=== PATIENT | male | born 1990 | race Caucasian/White ===

== ENCOUNTER 2017-04-25 10:55 | Inpatient (IN) | payer MEDICAID, OTHER ==
[~2017-04-25] VITALS: Ht 172.7 cm; Wt 52.3 kg
[2017-04-25] MEDS ORDERED: SODIUM CHLORIDE 0.9% 1L BAG IV* STA (11:12)
[2017-04-25] MEDS ORDERED: CEFEPIME 2GM/50 ML (PMX) 50 ML IVPB STA (11:12)
[2017-04-25] MEDS ORDERED: ACETAMINOPHEN 650 MG SUPP PR STA (11:12)
[2017-04-25] MEDS ORDERED: VANCOMYCIN 1 GM (PMX) 250 ML IVPB ONE (11:30)
[2017-04-25 11:57] LABS: ABNORMAL IP MESSAGE 1; HEMATOCRIT 25.3 % (42.0-52.0); HEMOGLOBIN 7.7 g/dl (14.0-18.0); MEAN CORPUSCULAR HEMOGLOBIN 29.7 pg (29.0-33.0); MEAN CORPUSCULAR HGB CONC 30.4 g/dl (32.0-37.0); MEAN CORPUSCULAR VOLUME 97.7 fl (82.0-101.0); MEAN PLATELET VOLUME 11.6 fl (7.4-10.4); NUCLEATED RED BLOOD CELLS% 6.4 /100WBC (0.0-0.0); PLATELET COUNT 117 10^3/UL (140-415); POSITIVE DIFF @See below; RED BLOOD COUNT 2.59 10^6/ul (4.70-6.10); RED CELL DISTRIBUTION WIDTH 17.6 % (11.5-14.5); WHITE BLOOD COUNT 1.7 10^3/ul (4.8-10.8)
[2017-04-25 12:16] LABS: INR 1.38; PT RATIO 1.3
[2017-04-25 12:17] LABS: PARTIAL THROMBOPLASTIN TIME 38.2 Sec (25.0-35.0)
[2017-04-25 12:20] LABS: ALBUMIN 2.7 g/dl (3.3-4.9); ALBUMIN/GLOBULIN RATIO 0.93; BILIRUBIN,DIRECT 0.2 mg/dl (0.00-0.20); BILIRUBIN,TOTAL 0.2 mg/dl (0.2-1.3); CALCIUM 7.4 mg/dl (8.4-10.2); CREATININE 1.42 mg/dl (0.61-1.24); POTASSIUM 3.7 mmol/L (3.5-5.1); TOTAL PROTEIN 5.6 g/dl (6.1-8.1)
--- NOTE | 2017-04-25 12:24 | RADRPT ---
PROCEDURE: XR Chest. CLINICAL INDICATION: Cough. Sepsis. TECHNIQUE: Single frontal view. COMPARISON: None. FINDINGS: There is a tracheostomy in satisfactory position. A right-sided TRACK REPAIR SUPERVISOR shunt catheter is noted. There is extensive bilateral pulmonary air space disease in the mid and lower lung zones consistent with pul monary edema or bilateral pneumonia. The heart size is normal. There is no pleural effusion. There is no pneumothorax. IMPRESSION: 1. Tracheostomy tube and right-sided TRACK REPAIR SUPERVISOR shunt catheter. 2. Extensive bilateral pneumonia or pulmonary edema. RPTAT: QQ .Garfield Sandhu MD, MD Date Time Electronically viewed and signed by .Garfield Sandhu MD, MD on 04/25/2017 12:24 .R/
[2017-04-25] MEDS ORDERED: SOD CHLORIDE 0.9% 250 ML IV ONE (12:29)
[2017-04-25] MEDS ORDERED: DEXTROSE 50% 50 ML SYRINGE IV ONE (12:30)
[2017-04-25] MEDS ORDERED: LIDOCAINE 1% (MPF) 5 ML VIAL SC ONE (12:30)
[2017-04-25 12:31] LABS: TROPONIN-I 0.035 ng/ml (0.00-0.12)
--- NOTE | 2017-04-25 12:32 | ERA ---
ER Documentation Chief Complaint Date/Time DATE: 04/25/17 TIME: 12:32 Chief Complaint pt sent from [facility] for hypotension, in coma non-responsive , temp 102.3 HPI This is an unfortunate 27-year-old male with a history of fungal meningitis initially hospitalized at [facility] then sent to [facility], after which he was sent to a senior care facility recently. He was sent here from his senior care facility for fever and hypotension with a systolic blood pressure down to 50s. Per the patient's mother, this frequently happens with him since he was diagnosed with the meningitis. He is currently being treated with antifungals at the senior care facility. He has had a pneumonia prior to this. Otherwise history is limited as the patient is nonverbal ROS Limited as patient is unresponsive Medications Home Meds Reported Medications Artificial Tears* (Akwa Oint*) 3.5 Gm Oint, 1 APPLIC BOTH EYES QID, #1 TUB 04/25/17 Desmopressin Acetate* (Ddavp*) 0.1 Mg Tablet, 0.05 MG GTB DAILY, #60 TAB 04/25/17 Ondansetron Hcl* (Zofran*) 4 Mg Tab, 4 MG GTB Q8 Y for NAUSEA AND OR VOMITING, TAB 04/25/17 Acidophilus-Bulgaricus* (BD Lactinex*) 1 Pkt Packet, 1 PKT GTB DAILY, PACKET 04/25/17 Ferrous Sulfate (Ferrous Sulfate) 220 Mg/5 Ml Elixir, 300 MG GTB BID, BOTTLE 04/25/17 Famotidine* (Famotidine*) 40 Mg/5 Ml Oral.susp, 20 MG GTB BID, #150 ML 04/25/17 Cholecalciferol (Vitamin D3) (Vitamin D3) 50,000 Unit Capsule, 57822 UNIT PO SUNDAYS, CAP 04/25/17 Enoxaparin Sodium* (Lovenox*) 30 Mg/0.3 Ml Disp.syrin, 30 MG SQ DAILY, SYR 04/25/17 Dantrolene Sodium* (Dantrolene Sodium*) 100 Mg Capsule, 150 MG PO Q8, CAP 04/25/17 Chlorhexidine Gluconate (Peridex) 473 Ml Mouthwash, 15 ML MM BID, BOTTLE 04/25/17 Bromocriptine Mesylate* (Parlodel*) 5 Mg Capsule, 30 MG GTB DAILY, CAP 04/25/17 Vit C-Ascorbate Ca-Ascorb Sod (Vitamin C) 500 Mg/15 Ml Liquid, 250 MG GTB BID, ML 04/25/17 Potassium Chloride* (Potassium Chloride*) 20 Meq/15 Ml Liquid, 40 MEQ GTB BID, ML 04/25/17 Posaconazole (Noxafil) 200 Mg/5 Ml Oral.susp, 300 MG GTB TID, ML 04/25/17 Hydrocortisone* (Cortef*) 20 Mg Tablet, 20 MG GTB DAILY, #60 TAB 04/25/17 Bethanechol Chloride* (Bethanechol Chloride*) 25 Mg Tablet, 25 MG GTB TID, TAB 04/25/17 Morphine Sulfate* (Morphine* Liq) 10 Mg/0.5 Ml Disp.syrin, 20 MG SL Q3H Y for SEVERE PAIN LEVEL 7-10, ML 04/25/17 Acetaminophen* (Acetaminophen*) 650 Mg Tablet, 650 MG GTB Q4 Y for PAIN AND OR ELEVATED TEMP, #30 TAB 04/25/17 Allergies Allergies: Coded Allergies: No Known Allergy (Unverified , 04/25/17) PMhx/Soc History of Surgery: Yes (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 , g tube ) Hx Miscellaneous Medical Probl: Yes (fungal meningitis , 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) Hx Alcohol Use: No Hx Substance Use: No Hx Tobacco Use: No Smoking Status: Never smoker FmHx Family History: other (unable to obtain) Physical Exam Vitals Vital Signs Date Time Temp Pulse Resp B/P Pulse Ox O2 Delivery O2 Flow Rate FiO2 04/25/17 13:36 98.9 110 17 73/42 100 Mechanical Ventilator 04/25/17 12:56 122 17 78/44 100 Mechanical Ventilator 04/25/17 12:05 100.9 139 33 73/53 99 Mechanical Ventilator 04/25/17 11:46 146 31 69/45 99 Mechanical Ventilator 04/25/17 11:08 102.3 160 24 59/41 94 Physical Exam Const: chronically ill appearing, on vent, appears ill Head: Atraumatic, shunt palpated in right scalp Eyes: Normal Conjunctiva, nystagmus noted ENT: dry mucous membranes Neck: trach in place, no swelling Resp: normal breath sounds but diminished Cardio: tachycardic with regular rhythm, no murmurs Abd: Soft, distended, no grimacing with palpation. Normal bowel sounds Skin: No petechiae or rashes Back: No midline or flank tenderness : underwood in place, draining clear yellow urine Ext: No cyanosis, or edema Neur: Awake, alert, not following commands, no eye contact. no spontaneous movement of extremities Result Diagram: 04/25/17 1130 04/25/17 1130 Results 24 hrs Laboratory Tests Test 04/25/17 11:30 04/25/17 12:02 White Blood Count 1.710^3/ul Red Blood Count 2.5910^6/ul Hemoglobin 7.7g/dl Hematocrit 25.3% Mean Corpuscular Volume 97.7fl Mean Corpuscular Hemoglobin 29.7pg Mean Corpuscular Hemoglobin Concent 30.4g/dl Red Cell Distribution Width 17.6% Platelet Count 39887^3/UL Mean Platelet Volume 11.6fl Neutrophils % % Segmented Neutrophils % (Manual) 23% Band Neutrophils % (Manual) 18% Lymphocytes % % Lymphocytes % (Manual) 27% Monocytes % % Monocytes % (Manual) 10% Eosinophils % % Eosinophils % (Manual) 1% Basophils % % Basophils % (Manual) 1% Metamyelocytes % (manual) 12% Myelocytes % (Manual) 6% Promyelocytes % (Manual) 2% Nucleated Red Blood Cells % 16% Neutrophils # 10^3/ul Neutrophils # (Manual) 0.410^3/ul Band Neutrophils # 0.310^3/ul Absolute Lymphocytes (Manual) 0.410^3/ul Lymphocytes # 10^3/ul Monocytes # 10^3/ul Absolute Monocytes (Manual) 0.110^3/ul Eosinophils # 10^3/ul Basophils # 10^3/ul Basophils # (Manual) 0.010^3/ul Metamyelocytes # 0.210^3/ul Myelocytes # 0.110^3/ul Promyelocytes # 010^3/ul Nucleated Red Blood Cells # 10^3/ul Platelet Estimate DECREASED Polychromasia 1+ Hypochromasia 1+ Anisocytosis 2+ Macrocytosis 1+ Tear Drop Cells 1+ Prothrombin Time 17.0Sec Prothrombin Time Ratio 1.3 INR International Normalized Ratio 1.38 Activated Partial Thromboplast Time 38.2Sec Sodium Level 154mmol/L Potassium Level 3.7mmol/L Chloride Level 121mmol/L Carbon Dioxide Level 21mmol/L Anion Gap 16 Blood Urea Nitrogen 42mg/dl Creatinine 1.42mg/dl Glucose Level 68mg/dl Lactic Acid Level 4.0mmol/L Calcium Level 7.4mg/dl Total Bilirubin 0.2mg/dl Direct Bilirubin 0.20mg/dl Indirect Bilirubin 0.0mg/dl Aspartate Amino Transf (AST/SGOT) 18IU/L Alanine Aminotransferase (ALT/SGPT) 27IU/L Alkaline Phosphatase 210IU/L Troponin I 0.035ng/ml Total Protein 5.6g/dl Albumin 2.7g/dl Globulin 2.90g/dl Albumin/Globulin Ratio 0.93 Urine Color SAUL Urine Clarity CLOUDY Urine pH 5.0 Urine Specific [place] 1.023 Urine Ketones NEGATIVEmg/dL Urine Nitrite NEGATIVEmg/dL Urine Bilirubin NEGATIVEmg/dL Urine Urobilinogen NEGATIVEmg/dL Urine Leukocyte Esterase 2+Shayy/ul Urine Microscopic RBC 160/HPF Urine Microscopic WBC > 182/HPF Urine Bacteria FEW/HPF Urine Hyaline Casts FEW/HPF Urine Hemoglobin 2+mg/dL Urine Glucose NEGATIVEmg/dL Urine Total Protein 2+mg/dl Current Medications Medications (Trade) Dose Ordered Sig/Atif Route PRN Reason Start Time Stop Time Status Last Admin Dose Admin Sodium Chloride (NS) 1,830 ml BOLUS OVER 2 HOURS STAT IV* 04/25/17 11:12 04/25/17 11:13 DC 04/25/17 11:30 Acetaminophen 650 mg 650 mg ONCE STAT VT 04/25/17 11:12 04/25/17 11:13 DC 04/25/17 11:30 Cefepime HCl 50 ml @ 100 mls/hr ONCE STAT IVPB 04/25/17 11:12 04/25/17 11:41 DC 04/25/17 11:32 Vancomycin HCl (Vancocin) 250 ml @ 125 mls/hr ONCE ONCE IVPB 04/25/17 11:30 04/25/17 13:29 DC 04/25/17 12:15 Lidocaine 5 ml 5 ml ONCE ONCE SC 04/25/17 12:30 04/25/17 12:31 DC Sodium Chloride (NS) 250 ml @ 0 mls/hr Q0M ONCE IV 04/25/17 12:29 04/25/17 12:31 DC Dextrose (D50w Syringe) 25 ml ONCE ONCE IV 04/25/17 12:30 04/25/17 12:31 DC 04/25/17 13:11 Ondansetron HCl (Zofran Inj) 4 mg ER BRIDGE PRN IV NAUSEA AND/OR VOMITING 04/25/17 13:00 04/26/17 12:59 Acetaminophen 650 mg 650 mg ER BRIDGE PRN PO MILD PAIN/FEVER 04/25/17 13:00 04/26/17 12:59 Norepinephrine 250 ml @ 7.5 mls/hr ONCE STAT IV 04/25/17 13:15 04/26/17 22:34 04/25/17 13:41 Sodium Chloride 500 ml @ 500 mls/hr Q1H STAT IV 04/25/17 13:15 04/25/17 14:14 04/25/17 13:40 Potassium Chloride/Dextrose (KCl/D5W) 1,005 ml @ 100 mls/hr Q10H3M IV 04/25/17 13:30 Procedures/[facility] EKG: Rate/Rhythm: Sinus tachycardia with short VT interval QRS, ST, T-waves: Right axis deviation, inferior T-wave inversions Impression: no STEMI Chest x-ray IMPRESSION: 1. Tracheostomy tube and right-sided PILOT SUBMERSIBLE shunt catheter. 2. Extensive bilateral pneumonia or pulmonary edema. RPTAT: QQ .Garfield Sandhu MD, MD Date Time Electronically viewed and signed by .Garfield Sandhu MD, MD on 04/25/2017 12:24 [facility] Patient is presenting with signs of septic shock. Labs were notable for pancytopenia. Additionally, he has hypernatremia and evidence of acute renal failure, likely secondary to dehydration. For his hypoglycemia, he was given D50. Broad-spectrum antibiotics were given for possible healthcare associated pneumonia. Chest x-ray showed evidence of pneumonia. Urinalysis showed evidence of infection as well. Patient's infectious symptoms have not stabilized and the patient is at risk of rapid decompensation. The patient will be admitted for careful hydration, antibiotic therapy, and infectious source control. Dr. Dozier evaluated the patient and requested 1 unit blood transfusion. Severe Sepsis Assessment: Infectious Source: Pneumonia, UTI End organ damage indicated by: Lactate > 2.0 mmol/L Hypotension( SBP < 90 or >40 mmHG drop or MAP < 65) Acute Resp Failure (sat < 92% w/o oxygen) Severe Sepsis Managment: Blood Cultures X 2 before broad spectrum antibiotics initiated within 3 hours of recognition. 30 ml/kg NS bolus Completed Initial Lactate: 4 Repeat Lactate pending Critical Care: Time: 45 minutes Treatments/Evaluations: Emergent fluid management, while maintaining close respiratory support. Immediate broad spectrum antibiotic therapy. Simultaneous assessment for possible sources in order to direct therapy. Consideration for invasive and chemical support to prevent respiratory or cardiac collapse. Septic Shock Assessment (1 hour post 30 ml/kg fluid bolus): Hypotension (SBP < 90 or 40 mmHg drop, MAP < 65): Yes Lactic acid > 4.0 pending Perfusion Reassessment for Septic Shock: Temp 98.9, Pulse 110, RR 17, BP 73/42 Heart Exam: Tachycardic Lung Exam: No Crackles Capillary Refill: Delayed Peripheral Pulses: Radially present Skin: warm,dry Hypotensive Treatment Comfort Care: No Central LIne: PICC requested, CVC not placed by me as this would be invasive and POLST states to generally avoid invasive procedures Vasopressor started: norepinephrine Accepting Care Team: Current data and ongoing care discussed. Time: Time of admission Primary Provider: Jacoby Consulting: none Outstanding Data: none Departure Diagnosis: Primary Impression: Severe sepsis Additional Impressions: History of meningitis Hypernatremia Chronic respiratory failure Qualified Code: J96.10 - Chronic respiratory failure, unspecified whether with hypoxia or hypercapnia Acute renal failure Qualified Code: N17.9 - Acute renal failure, unspecified acute renal failure type Pancytopenia Healthcare-associated pneumonia UTI (urinary tract infection) Qualified Code: N39.0 - Urinary tract infection without hematuria, site unspecified Condition: Critical TRANG PARDO MD Apr 25, 2017 12:32
[2017-04-25 12:42] LABS: ANISOCYTOSIS 2+ (0-0); BASOPHILS % (M) 1 % (0-2); EOSINOPHILS % (M) 1 % (0-7); ERYTHROBLAST% (NRBC) (M) 16 % (0-0); HYPOCHROMASIA 1+ (0-0); METAMYELOCYTES %M 12 % (0-0); MONOCYTES % (M) 10 % (0-11); MYELOCYTES % (M) 6 % (0-0); PLATELET ESTIMATE DECREASED; POLYCHROMASIA 1+ (0-0); PROMYELOCYTES #M 0 10^3/ul (0-0); PROMYELOCYTES % (M) 2 % (0-0); TEAR DROP CELLS 1+ (0-0)
[2017-04-25] MEDS ORDERED: ACET-2047 GTB (12:59)
--- NOTE | 2017-04-25 12:59 | CONS ---
Date/Time of Note Date/Time of Note DATE: 04/25/17 TIME: 12:51 Assessment/Plan Assessment/Plan Additional Assessment/Plan Data setting; AC of 16, tidal volume 400, PEEP of 0, 100% FiO2. Assessment and recommendations; 1. Patient admitted with bilateral pneumonia with pancytopenia. 2. History of anoxic brain injury, patient remains chronically ventilator dependent and in a persistent vegetative state. 3. History of disseminated coccidiomycosis infection. 4. Abdominal distention. Continue current treatment. Continue IV hydration current antibiotics. Obtain CT of the abdomen and pelvis without contrast. Consultation Date/Type/Reason Admit Date/Time Date of Consultation: Apr 25, 2017 Type of Consultation: Pulmonary/critical care Reason for Consultation Pulmonary consultation requested for evaluation of sepsis. History of presenting illness; patient is a young 27-year-old male who was sent over to the ER from care home with complaints of being hypotensive. Upon evaluation a chest x-ray was done which is showing bilateral pneumonia. Patient currently is getting fluid resuscitation. Patient has history of severe anoxic brain injury and is chronically ventilator dependent. History was obtained from patient's primary care physician Dr. Dozier and patient's mother who was present in the emergency room. Past medical history; 1. 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 2. Persistent vegetative state. 3. Patient is chronically ventilator dependent. 4. Status post tracheostomy and G-tube placement. Medications; reviewed. Allergies; none. Social history; noncontributory. Family history; patient has a supportive family. Review of systems; unable to be obtained. General exam; young male, on ventilator via tracheostomy, unresponsive, currently in no distress. Social History Smoking Status: Never smoker Exam/Review of Systems Vital Signs Vitals Vital Signs Date Time Temp Pulse Resp B/P Pulse Ox O2 Delivery O2 Flow Rate FiO2 04/25/17 12:05 100.9 139 33 73/53 99 04/25/17 11:46 Mechanical Ventilator Exam HEENT exam; supple neck, tracheostomy in place. Insertion site is clean. Patient has fair dentition. No neck masses, no thyromegaly. No lymphadenopathy. Pupils are midsize and reactive to light. Chest exam; diminished but clear breath sounds. S1-S2 audible, no murmurs. Regular rhythm. Abdomen exam; soft, no organomegaly. G-tube in place. Bowel sounds audible. Abdomen is protuberant. Extremity exam; no peripheral edema. FOUNDER AND CHIEF EXECUTIVE OFFICER exam; patient is in vegetative state. Results Result Diagram: 04/25/17 1130 04/25/17 1130 Results 24 hrs Laboratory Tests Test 04/25/17 11:30 White Blood Count 1.7 L Red Blood Count 2.59 L Hemoglobin 7.7 L Hematocrit 25.3 L Mean Corpuscular Volume 97.7 Mean Corpuscular Hemoglobin 29.7 Mean Corpuscular Hemoglobin Concent 30.4 L Red Cell Distribution Width 17.6 H Platelet Count 117 L Mean Platelet Volume 11.6 H Neutrophils % Segmented Neutrophils % (Manual) 23 L Band Neutrophils % (Manual) 18 H Lymphocytes % Lymphocytes % (Manual) 27 Monocytes % Monocytes % (Manual) 10 Eosinophils % Eosinophils % (Manual) 1 Basophils % Basophils % (Manual) 1 Metamyelocytes % (manual) 12 H Myelocytes % (Manual) 6 H Promyelocytes % (Manual) 2 H Nucleated Red Blood Cells % 16 H Neutrophils # Neutrophils # (Manual) 0.4 L Band Neutrophils # 0.3 Absolute Lymphocytes (Manual) 0.4 L Lymphocytes # Monocytes # Absolute Monocytes (Manual) 0.1 L Eosinophils # Basophils # Basophils # (Manual) 0.0 Metamyelocytes # 0.2 H Myelocytes # 0.1 H Promyelocytes # 0 Nucleated Red Blood Cells # Platelet Estimate DECREASED Polychromasia 1+ Hypochromasia 1+ Anisocytosis 2+ Macrocytosis 1+ Tear Drop Cells 1+ Prothrombin Time 17.0 H Prothrombin Time Ratio 1.3 INR International Normalized Ratio 1.38 Activated Partial Thromboplast Time 38.2 H Sodium Level 154 H Potassium Level 3.7 Chloride Level 121 H Carbon Dioxide Level 21 Anion Gap 16 Blood Urea Nitrogen 42 H Creatinine 1.42 H Glucose Level 68 L Lactic Acid Level 4.0 *H Calcium Level 7.4 L Total Bilirubin 0.2 Direct Bilirubin 0.20 Indirect Bilirubin 0.0 Aspartate Amino Transf (AST/SGOT) 18 Alanine Aminotransferase (ALT/SGPT) 27 Alkaline Phosphatase 210 H Troponin I 0.035 Total Protein 5.6 L Albumin 2.7 L Globulin 2.90 Albumin/Globulin Ratio 0.93 Medications Medications Current Medications Vancomycin HCl (Vancocin) 250 ml @ 125 mls/hr ONCE ONCE IVPB Last administered on 04/25/17t 12:15; Admin Dose 125 MLS/HR; Start 04/25/17 at 11:30 ; Stop 04/25/17 at 13:29 CHITO WALLS Apr 25, 2017 12:59
[2017-04-25] MEDS ORDERED: MORP10DI10 SL (13:00)
[2017-04-25] MEDS ORDERED: ONDANSETRON 4 MG INJ IV PRN (13:00)
[2017-04-25] MEDS ORDERED: ACETAMINOPHEN 325 MG TAB PO PRN (13:00)
[2017-04-25] MEDS ORDERED: BETH25TA GTB (13:01)
[2017-04-25] MEDS ORDERED: HYDR20TA GTB (13:01)
[2017-04-25] MEDS ORDERED: POSA200O2 GTB (13:02)
[2017-04-25] MEDS ORDERED: POTA20LI5 GTB (13:03)
[2017-04-25] MEDS ORDERED: VIT500LI GTB (13:04)
[2017-04-25] MEDS ORDERED: BROM5CAP12 GTB (13:04)
[2017-04-25] MEDS ORDERED: CHLO473M4 MM (13:05)
[2017-04-25] MEDS ORDERED: DANT100C PO (13:06)
[2017-04-25] MEDS ORDERED: ENOX30DI10 SQ (13:06)
[2017-04-25] MEDS ORDERED: FAMO40OR4 GTB (13:07)
[2017-04-25] MEDS ORDERED: CHOL500051 PO (13:07)
[2017-04-25] MEDS ORDERED: ONDA-43 GTB (13:08)
[2017-04-25] MEDS ORDERED: FRS220B GTB (13:08)
[2017-04-25] MEDS ORDERED: LACTINEXG GTB (13:08)
[2017-04-25] MEDS ORDERED: DESM0.1T2 GTB (13:09)
[2017-04-25] MEDS ORDERED: MINE3.5O31 BOTH EYES (13:10)
[2017-04-25] MEDS ORDERED: NORepinephrine 8MG/250 ML (PMX 250 ML IV STA (13:15)
[2017-04-25] MEDS ORDERED: SOD CHLORIDE 0.9% 500 ML IV STA (13:15)
[2017-04-25 13:24] LABS: ADD UMIC YES; UR ASCORBIC ACID 40 mg/dL (NEGATIVE); UR BACTERIA FEW /HPF (NONE SEEN); UR BILIRUBIN (Dip) NEGATIVE (NEGATIVE); UR BLOOD (Dip) 2+ mg/dL (NEGATIVE); UR CLARITY CLOUDY (CLEAR); UR COLOR AMBER (YELLOW); UR GLUCOSE (Dip) NEGATIVE (NEGATIVE); UR KETONES (Dip) NEGATIVE (NEGATIVE); UR LEUKOCYTE ESTERASE (Dip) 2+ Leu/ul (NEGATIVE); UR NITRITE (Dip) NEGATIVE (NEGATIVE); UR NONSQUAMOUS EPITHELIAL CELL 5 /HPF (NONE SEEN); UR RBC 160 /HPF (0-5); UR SPECIFIC GRAVITY (Dip) 1.023 (1.003-1.030); UR TOTAL PROTEIN (Dip) 2+ mg/dl (NEGATIVE); UR UROBILINOGEN (Dip) NEGATIVE (NEGATIVE)
--- NOTE | 2017-04-25 13:31 | CONS ---
Date/Time of Note Date/Time of Note DATE: 04/25/17 TIME: 13:30 Assessment/Plan Assessment/Plan Additional Assessment/Plan 1. Non Oliguric Acute kidney injury due to septic shock 2. Hypernaremia 3. Lactic acidosis due to septic shock 4. Acute on chronic resp failure s/p Tracheostomy 5. H/o Fungal meningitis, currently comatose 6. 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 Consultation Date/Type/Reason Admit Date/Time 04/25/2017 Date of Consultation: Apr 25, 2017 Type of Consultation: NEPHROLOGY Reason for Consultation acute kidney injury,septic shock,Hypernatremia , Referring Provider: HELEN CASTELLANO MD Hx of Present Illness 27-year-old male who was [facility] ER from [facility] with complaints of being hypotensive. Upon evaluation a chest x-ray was done which is showing bilateral pneumonia. Patient currently is getting fluid resuscitation. Patient has history of severe anoxic brain injury and is chronically ventilator dependent. He is noted to have Na 154, Cr 1.4 and renal has been consulted for it Subjective hx not possible: pt non-verbal Past Medical History Medical History: other (FUngal meningitis, coma ) Past Surgical History Past Surgical Hx: other (Right sided SENIOR CATERING SALES MANAGER carmona, G tube, Tracheostomy ) Family History Significant Family History: other (Not available ) Social History Alcohol Use: other Smoking Status: Never smoker Drug Use: other (Not available ) Exam/Review of Systems Vital Signs Vitals Vital Signs Date Time Temp Pulse Resp B/P Pulse Ox O2 Delivery O2 Flow Rate FiO2 04/25/17 12:56 122 17 78/44 100 Mechanical Ventilator 04/25/17 12:05 100.9 Exam Constitutional: non-verbal ENMT: other ( tracheostomy ) Neck: supple Respiratory: congested cough, crackles/rales, diminished breath sounds Cardiovascular: other (tachycardia ), regular rate and rhythm Gastrointestinal: non-tender, other, soft Genitourinary - Male: CVA tenderness Neurological: lethargic, other (Uncooperative for exam ) Skin: nl turgor Results Result Diagram: 04/25/17 1130 04/25/17 1130 Results 24 hrs Laboratory Tests Test 04/25/17 11:30 04/25/17 12:02 White Blood Count 1.7 L Red Blood Count 2.59 L Hemoglobin 7.7 L Hematocrit 25.3 L Mean Corpuscular Volume 97.7 Mean Corpuscular Hemoglobin 29.7 Mean Corpuscular Hemoglobin Concent 30.4 L Red Cell Distribution Width 17.6 H Platelet Count 117 L Mean Platelet Volume 11.6 H Neutrophils % Segmented Neutrophils % (Manual) 23 L Band Neutrophils % (Manual) 18 H Lymphocytes % Lymphocytes % (Manual) 27 Monocytes % Monocytes % (Manual) 10 Eosinophils % Eosinophils % (Manual) 1 Basophils % Basophils % (Manual) 1 Metamyelocytes % (manual) 12 H Myelocytes % (Manual) 6 H Promyelocytes % (Manual) 2 H Nucleated Red Blood Cells % 16 H Neutrophils # Neutrophils # (Manual) 0.4 L Band Neutrophils # 0.3 Absolute Lymphocytes (Manual) 0.4 L Lymphocytes # Monocytes # Absolute Monocytes (Manual) 0.1 L Eosinophils # Basophils # Basophils # (Manual) 0.0 Metamyelocytes # 0.2 H Myelocytes # 0.1 H Promyelocytes # 0 Nucleated Red Blood Cells # Platelet Estimate DECREASED Polychromasia 1+ Hypochromasia 1+ Anisocytosis 2+ Macrocytosis 1+ Tear Drop Cells 1+ Prothrombin Time 17.0 H Prothrombin Time Ratio 1.3 INR International Normalized Ratio 1.38 Activated Partial Thromboplast Time 38.2 H Sodium Level 154 H Potassium Level 3.7 Chloride Level 121 H Carbon Dioxide Level 21 Anion Gap 16 Blood Urea Nitrogen 42 H Creatinine 1.42 H Glucose Level 68 L Lactic Acid Level 4.0 *H Calcium Level 7.4 L Total Bilirubin 0.2 Direct Bilirubin 0.20 Indirect Bilirubin 0.0 Aspartate Amino Transf (AST/SGOT) 18 Alanine Aminotransferase (ALT/SGPT) 27 Alkaline Phosphatase 210 H Troponin I 0.035 Total Protein 5.6 L Albumin 2.7 L Globulin 2.90 Albumin/Globulin Ratio 0.93 Urine Color SAUL Urine Clarity CLOUDY A Urine pH 5.0 Urine Specific [place] 1.023 Urine Ketones NEGATIVE Urine Nitrite NEGATIVE Urine Bilirubin NEGATIVE Urine Urobilinogen NEGATIVE Urine Leukocyte Esterase 2+ H Urine Microscopic RBC 160 H Urine Microscopic WBC > 182 H Urine Bacteria FEW A Urine Hyaline Casts FEW A Urine Hemoglobin 2+ H Urine Glucose NEGATIVE Urine Total Protein 2+ H Medications Medications Current Medications Potassium Chloride/Dextrose (KCl/D5W) 1,005 ml @ 100 mls/hr Q10H3M IV ; Start 04/25/17 at 13:30; Status UNV FARHAT RUBIO MD Apr 25, 2017 13:31
[2017-04-25 14:07] LABS: AADO2 Arterial 542.1 mmHg (7.0-24.0); Allen Test ACCEPTAB; Arterial Base Excess -3.1 mmol/L (-3.0-3); Arterial COHb 0.3 % (0.0-3.0); Arterial Fraction of Oxyhgb 97.4 % (93.0-99.0); Arterial HCO3 21.6 mmol/L (22.0-26.0); Arterial MetHb 0.5 % (0.0-1.5); Arterial Total Hemglobin 7.3 g/dl (12.0-18.0); MODE VENT - AC
[2017-04-25 15:20] LABS: PROTEIN/CREAT RATIO 1.35 RATIO
--- NOTE | 2017-04-25 15:34 | RADRPT ---
PROCEDURE: XR Chest. CLINICAL INDICATION: Check PICC line position. TECHNIQUE: Single frontal view. COMPARISON: Prior study done earlier the same day. FINDINGS: A right arm PICC line has been inserted with the tip in the lower superior vena cava. There is a tra cheostomy in satisfactory position. A right-sided MICROSOFT OFFICE INSTRUCTOR shunt catheter is noted. There is extensive celeste ateral pulmonary air space disease in the mid and lower lung zones consistent with pulmonary edema o r bilateral pneumonia. The heart size is normal. There is no pleural effusion. There is no pneumothorax. IMPRESSION: 1. Right arm PICC line tip in satisfactory position. 2. No other change from the prior study done earlier the same day. RPTAT: QQ .Garfield Sandhu MD, MD Date Time Electronically viewed and signed by .Garfield Sandhu MD, MD on 04/25/2017 15:34 .R/
--- NOTE | 2017-04-25 16:29 | RADRPT ---
PROCEDURE: Ultrasound guidance for placement of needle in right upper extremity vein. CLINICAL INDICATION: Venous access. TECHNIQUE: Limited sonography of the right upper extremity was performed. Ultrasound images were recorded and stored in the patient's medical record. COMPARISON: None. FINDINGS: The ultrasound images demonstrate a patent right upper extremity vein. The PICC line was inserted b y the PICC line nurse. IMPRESSION: 1. Ultrasound guidance for a needle placement in a right upper extremity vein. 2. The visualized right upper extremity vein is patent. RPTAT: QQ .Garfield Sandhu MD, MD Date Time Electronically viewed and signed by .Garfield Sandhu MD, MD on 04/25/2017 16:29 .R/
--- NOTE | 2017-04-25 16:32 | RADRPT ---
PROCEDURE: CT Abdomen and Pelvis without contrast. CLINICAL INDICATION: Abdominal and pelvic pain. TECHNIQUE: CT scan of the abdomen and pelvis without contrast was performed. Coronal and sagittal reformatted images were obtained from the axial source images. Images were reviewed on a high-resolu tion PACS workstation. Total exam DLP is 329.31 mGy-cm. CTDIvol is 6.10 mGy. One or more of the fo llowin dose reduction techniques were used: Automated exposure control, adjustment of the mA and/or kV according to patient size, use of iterative reconstruction technique. COMPARISON: Chest x-ray done earlier the same day. FINDINGS: There is extensive air space disease in both lower lobes consistent with pneumonia. There is also pa tchy pneumonia in the right middle lobe and lingula. There is no pleural effusion or pericardial eff usion. The heart size is normal. The liver is normal in size and attenuation. There is no focal hepatic lesion. The gallbladder and bile ducts are normal. The gastrostomy tube tip is in the stomach. There is a ri ght-sided DETAIL MANAGER shunt catheter with the tip in the pelvis. The spleen is normal in size. There is no focal splenic lesion. Both adrenals are normal with no enlargement or mass. The pancreas is unremarkable with no mass or evidence of pancreatitis. There is no renal mass or hydronephrosis. There is no renal calculus or ureteral calculus. The abdominal aorta is not dilated. There is no retroperitoneal lymphadenopathy or mass. There is no pelvic lymphadenopathy or mass. There is a Angel catheter in the bladder. The periappendiceal region is unremarkable with no evidence of appendicitis. There is a large amount of stool in the colon consistent with constipation. The bowel and mesentery are otherwise normal. There is no free fluid or free gas. The osseous structures are unremarkable with no fracture or lytic lesion. IMPRESSION: 1. Bilateral pneumonia. 2. Gastrostomy tube tip in the stomach. 3. Right-sided DETAIL MANAGER shunt catheter with tip in the pelvis. 4. Angel catheter in the bladder. 5. Constipation. 6. Otherwise unremarkable study. RPTAT: QQ .Garfield Sandhu MD, MD Date Time Electronically viewed and signed by .Garfield Sandhu MD, MD on 04/25/2017 16:32 .R/
[2017-04-25] MEDS ORDERED: VASOPRESSIN 60 UNIT in SOD CHLORIDE 0.9% 57 ML IV STA (16:48)
[2017-04-25] MEDS ORDERED: HYDROCORTISONE 100 MG INJ IV ONE (17:00)
[2017-04-25] MEDS: POTASSIUM CHLORIDE 10 MEQ in DEXTROSE 5% 1,000 ML IV SCH (17:04)
--- NOTE | 2017-04-25 18:13 | CONS ---
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, G tube, Tracheostomy ) Social History Alcohol Use: other Smoking Status: Never smoker Drug Use: other (Not available ) Exam/Review of Systems Vital Signs Vitals Vital Signs Date Time Temp Pulse Resp B/P Pulse Ox O2 Delivery O2 Flow Rate FiO2 04/25/17 18:00 98.9 110 27 97/66 98 Mechanical Ventilator Results Result Diagram: 04/25/17 1130 04/25/17 1130 Results 24 hrs Laboratory Tests Test 04/25/17 11:30 04/25/17 12:02 04/25/17 13:55 04/25/17 14:00 White Blood Count 1.7 L Red Blood Count 2.59 L Hemoglobin 7.7 L Hematocrit 25.3 L Mean Corpuscular Volume 97.7 Mean Corpuscular Hemoglobin 29.7 Mean Corpuscular Hemoglobin Concent 30.4 L Red Cell Distribution Width 17.6 H Platelet Count 117 L Mean Platelet Volume 11.6 H Neutrophils % Segmented Neutrophils % (Manual) 23 L Band Neutrophils % (Manual) 18 H Lymphocytes % Lymphocytes % (Manual) 27 Monocytes % Monocytes % (Manual) 10 Eosinophils % Eosinophils % (Manual) 1 Basophils % Basophils % (Manual) 1 Metamyelocytes % (manual) 12 H Myelocytes % (Manual) 6 H Promyelocytes % (Manual) 2 H Nucleated Red Blood Cells % 16 H Neutrophils # Neutrophils # (Manual) 0.4 L Band Neutrophils # 0.3 Absolute Lymphocytes (Manual) 0.4 L Lymphocytes # Monocytes # Absolute Monocytes (Manual) 0.1 L Eosinophils # Basophils # Basophils # (Manual) 0.0 Metamyelocytes # 0.2 H Myelocytes # 0.1 H Promyelocytes # 0 Nucleated Red Blood Cells # Platelet Estimate DECREASED Polychromasia 1+ Hypochromasia 1+ Anisocytosis 2+ Macrocytosis 1+ Tear Drop Cells 1+ Prothrombin Time 17.0 H Prothrombin Time Ratio 1.3 INR International Normalized Ratio 1.38 Activated Partial Thromboplast Time 38.2 H Sodium Level 154 H Potassium Level 3.7 Chloride Level 121 H Carbon Dioxide Level 21 Anion Gap 16 Blood Urea Nitrogen 42 H Creatinine 1.42 H Glucose Level 68 L Lactic Acid Level 4.0 *H 3.2 *H Calcium Level 7.4 L Total Bilirubin 0.2 Direct Bilirubin 0.20 Indirect Bilirubin 0.0 Aspartate Amino Transf (AST/SGOT) 18 Alanine Aminotransferase (ALT/SGPT) 27 Alkaline Phosphatase 210 H Troponin I 0.035 Total Protein 5.6 L Albumin 2.7 L Globulin 2.90 Albumin/Globulin Ratio 0.93 Urine Color SAUL Urine Clarity CLOUDY A Urine pH 5.0 Urine Specific [place] 1.023 Urine Ketones NEGATIVE Urine Nitrite NEGATIVE Urine Bilirubin NEGATIVE Urine Urobilinogen NEGATIVE Urine Leukocyte Esterase 2+ H Urine Microscopic RBC 160 H Urine Microscopic WBC > 182 H Urine Bacteria FEW A Urine Hyaline Casts FEW A Urine Hemoglobin 2+ H Urine Glucose NEGATIVE Urine Total Protein 2+ H Blood Gas Specimen Source Blood arterial Arterial Blood Date Drawn 04/25/2017 2:00:49 PM Arterial Blood pH (Temp corrected) 7.387 Arterial Blood pCO2 (Temp correct) 36.7 Arterial Blood pO2 (Temp corrected) 134.2 H Arterial Blood HCO3 21.6 L Arterial Blood Base Excess -3.1 L Arterial Blood Oxygen Saturation 98.2 H Haile Test ACCEPTAB Arterial Blood Gas Puncture Site Right Radial Arterial Blood Carboxyhemoglobin 0.3 Arterial Blood Methemoglobin 0.5 Blood Gas A-a O2 Differential 542.1 H Oxyhemoglobin Percent 97.4 Total Hemoglobin 7.3 L Blood Gas Temperature 37.0 Blood Gas Respiration Rate 16.0 Blood Gas Actual Respiration Rate 23 Blood Gas Modality VENT - AC FiO2 100.0 Blood Gas Tidal Volume 400.0 Blood Gas Low PEEP Setting 5.0 Blood Gas Notified Whom RT Blood Gas Notified Time 04/25/2017 2:07:42 PM Test 04/25/17 14:50 04/25/17 16:05 Urine Eosinophils % 0.0 Urine Random Creatinine 86.04 Urine Random Sodium 23 L Urine Protein/Creatinine Ratio 1.35 Urine Total Protein 117.0 H Lactic Acid Level 2.8 *H Medications Medications Current Medications Potassium Chloride/Dextrose (KCl/D5W) 1,005 ml @ 100 mls/hr Q10H3M IV Last administered on 04/25/17t 17:04; Admin Dose 100 MLS/HR; Start 04/25/17 at 13:30 SABRINA LOPEZ MD Apr 25, 2017 18:13
[2017-04-25] MEDS ORDERED: AZITHROMYCIN 500MG/NS (PMX) 250 ML IVPB ONE (18:30)
[2017-04-25] MEDS ORDERED: VANCOMYCIN IV PER PHARMACY XX SCH (18:30)
[2017-04-25] MEDS: POSACONAZOLE PO SCH (18:37)
[2017-04-25] MEDS: AZTREONAM 1 GM/NS (PMX) 50 ML IVPB SCH (18:58)
[2017-04-25] MEDS ORDERED: ONDANSETRON 4 MG TAB GTB PRN (23:00)
[2017-04-26] VITALS (78 sets, daily range): BP systolic 60–135; BP diastolic 33–90; PULSE 94–125; RESP 14–41; TEMP 100.9; Ht 172.7 cm; Wt 52.3 kg
[2017-04-26] MEDS ORDERED: VANCOMYCIN 500MG/NS (PMX) 100 ML IVPB SCH (01:00)
[2017-04-26] MEDS: CEFEPIME 2GM/50 ML IVPB SCH ×3 (01:32→21:07)
[2017-04-26] MEDS: ACETAMINOPHEN 650MG/20.3ML CUP GTB PRN ×2 (01:51→11:29)
--- NOTE | 2017-04-26 02:22 | HP ---
DATE OF ADMISSION: 04/25/2017 HISTORY OF PRESENT ILLNESS: The history is obtained from medical record and the patient's family, as patient is nonverbal. The patient is a 27-year-old male who was initially diagnosed with pulmonary coccidioidomycosis and subsequently had pulmonary involvement and possible spine involvement. The patient had progressively gotten worse in the last several months. The patient was at [facility] due to coccidioidomycosis meningitis and has become nonverbal. The patient also is ventilator dependent. The patient had a prolonged stay at [facility] for approximately 3 months and was subsequently transferred to [facility]. However, after 3 days, he was sent back again to this [facility] for worsening condition. The patient also underwent INSPECTOR FINISHING shunt placement for hydrocephalus. The patient has had and posaconazole recently. However, the patient was sent to [facility] unit for continuation of posaconazole treatment. The patient's family is aware of poor prognosis for recovery and they wanted to give a trial of few more weeks of posaconazole, and if there is no improvement or any hope for further recovery, they have been considering comfort care. However, patient at [facility] this morning was noted to have hypotension and tachycardia. Heart rate was in 150s and BP was in 70s. Nine-1-1 was called. The patient was transferred to [facility] Emergency Room. The patient was noted to be febrile with temperature of 102.3. The patient was hypotensive with a blood pressure 59/41, lactic acid level was 4. The patient was diagnosed with septic shock. The patient was given a fluid bolus and had to be started on vasopressors. The patient's white count was noted to be 1.7, hemoglobin 7.7, platelet 117. The patient has 12 percent metamyelocyte and 2 percent promyelocytes. Chest x-ray revealed extensive bilateral pneumonia. CT of the abdomen and pelvis revealed bilateral pneumonia and constipation; otherwise unremarkable study. The patient is being admitted for further evaluation and care. PAST MEDICAL HISTORY: The past medical history and surgical history as above. ALLERGIES: NONE. SOCIAL HISTORY: No smoking. No alcohol. FAMILY HISTORY: Noncontributory for patient's condition. PHYSICAL EXAMINATION: GENERAL: The patient is lethargic, occasionally opens eyes. VITAL SIGNS: Upon admission, temperature 102.3, pulse 160, respirations 24, blood pressure 59/41, O2 sat 94 percent on FiO2 of 60 percent. HEENT: No eye discharge. No nystagmus. No eye redness. Nose and ears normal externally. NECK: Tracheostomy in place. No mass. CHEST: Diminished air entry at the bases. No use of accessory muscles. CV: Sinus tachycardia. No murmur. ABDOMEN: Soft, nondistended. G-tube in place. EXTREMITIES: Cachectic with no edema, clubbing, or cyanosis. NEURO: The patient is lethargic and intermittently opens eyes, however, nonverbal. LABS: WBC 1.7, hemoglobin 10.7, platelets 117, sodium 154, potassium 3.7, BUN 42, creatinine 1.4, glucose 68. Lactic acid 4, AST 18, ALT 27, alk phos 210. IMPRESSION: 1. Septic shock due to bilateral pneumonia. 2. Coccidioidomycosis with involvement of lungs, meninges, and possible spine. 3. Acute kidney injury. 4. Hyponatremia. 5. Dysphagia. 6. Respiratory failure. 7. Pancytopenia. 8. Dysphagia. 9. Hydrocephalus status post INSPECTOR FINISHING shunt. PLAN: The patient will be maintained in ICU and will be continued on IV fluids. The patient will also be started on IV vancomycin, IV cefepime, IV aztreonam and received 1 dose of erythromycin. The patient will be continued on Levophed to maintain adequate blood pressure. The patient was also given dose of Solu-Cortef and vasopressin. The patient was seen by infectious disease standpoint and has been continued on posaconazole. We will hold off on feeding tube for now. ID consult from Dr. Sorensen and pulmonary consult from Dr. Hyatt was also obtain. We will do follow up labs if pancytopenia persists. The patient apparently also has a history of hyperprolactinemia and will be continued on bromocriptine and will continue on desmopressin at the senior living facility. The patient remains nonverbal. I have met with the patient's mother today and explained the poor prognosis for any meaningful recovery. The patient is in vegetative state. Dictated By: Harlan Dozier MD /jose/kaitlin /Document#: [id number]
[2017-04-26] MEDS: POTASSIUM CHLORIDE 10 MEQ in DEXTROSE 5% 1,000 ML IV SCH ×3 (03:55→15:37)
[2017-04-26] MEDS: NORepinephrine 8MG/250 ML (PMX 250 ML IV SCH ×2 (05:46→11:42)
[2017-04-26] MEDS ORDERED: NORepinephrine 8MG/250 ML (PMX 250 ML IV ONE (06:00)
[2017-04-26 06:03] LABS: ABNORMAL IP MESSAGE 1; BASOPHIL # 0.1 10^3/ul (0.0-0.1); BASOPHILS % 0.5 % (0.0-2.0); EOSINOPHILS % 0.1 % (0.0-7.0); HEMATOCRIT 25.4 % (42.0-52.0); HEMOGLOBIN 8.1 g/dl (14.0-18.0); LYMPHOCYTES # 0.9 10^3/ul (0.8-2.9); LYMPHOCYTES % 5.4 % (15.0-51.0); MEAN CORPUSCULAR HEMOGLOBIN 29.5 pg (29.0-33.0); MEAN CORPUSCULAR HGB CONC 31.9 g/dl (32.0-37.0); MEAN CORPUSCULAR VOLUME 92.4 fl (82.0-101.0); MEAN PLATELET VOLUME 10.8 fl (7.4-10.4); MONOCYTE # 0.6 10^3/ul (0.3-0.9); MONOCYTES % 3.5 % (0.0-11.0); NEUTROPHIL # 14.4 10^3/ul (1.6-7.5); NEUTROPHILS % 82.6 % (39.0-77.0); PLATELET COUNT 97 10^3/UL (140-415); POSITIVE DIFF @See below; RED BLOOD COUNT 2.75 10^6/ul (4.70-6.10); RED CELL DISTRIBUTION WIDTH 18.4 % (11.5-14.5); WHITE BLOOD COUNT 17.5 10^3/ul (4.8-10.8)
--- NOTE | 2017-04-26 06:12 | CONS ---
Date/Time of Note Date/Time of Note DATE: 04/26/17 TIME: 06:05 Assessment/Plan Assessment/Plan Chief Complaint/Hosp Course 1. Septic Shock likely 2/2 to HCAP 2. Hx of disseminated Cocci 3. SULFUR CHLORIDE OPERATOR shunt 4. trach/gtube dependent 5. Saez cyotpenia likely 2/2 to # 1 R: vanco/cefepime/aztreonam/azithro posaconazole records [facility] icu care will continue to follow this very tragic case closely with you. Problems: Consultation Date/Type/Reason Admit Date/Time 04/25/2017 Date of Consultation: Apr 25, 2017 Type of Consultation: id Reason for Consultation Disseminated Cocci, septic shock Referring Provider: HELEN CASTELLANO MD Hx of Present Illness A very tragic case of 27 yo male with apparent hx of Disseminated coccidioidomycosis. He was apparently treated at multiple facilities including [facility] and [place]. He was apparently at [facility] for a prolonged period of time. He seemingly failed several course of antifungals and has been on posaconazole mot recently. He is trach/gtube dependent, decerberate posturing, non-verbal, known poor prognosis, but family wishes to try care for a few more weeks. He is now in [facility] ER with septic shock and bilateral pna. Hx is obtained from mother at bedside in ER and ER nurse Isa. 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, Tracheostomy ) Social History Alcohol Use: other Smoking Status: Never smoker Drug Use: other (Not available ) Exam/Review of Systems Vital Signs Vitals Vital Signs Date Time Temp Pulse Resp B/P Pulse Ox O2 Delivery O2 Flow Rate FiO2 04/26/17 05:36 107 24 114/80 100 Mechanical Ventilator 04/26/17 05:00 101.0 04/26/17 03:15 60 Intake and Output 04/25/17 04/25/17 04/26/17 15:00 23:00 07:00 Intake Total 1880 ml 500 ml Output Total 400 ml Balance 1880 ml 100 ml Exam Constitutional: frail, non-verbal Eyes: nl lids ENMT: other (trach) Respiratory: congested cough, diminished breath sounds, other (rhonchi) Cardiovascular: other (tachy) Gastrointestinal: soft Neurological: other (decerebrate posturing) Results Result Diagram: 04/25/17 1130 04/25/17 1130 Results 24 hrs Laboratory Tests Test 04/25/17 11:30 04/25/17 12:02 04/25/17 13:55 04/25/17 14:00 White Blood Count 1.7 L Red Blood Count 2.59 L Hemoglobin 7.7 L Hematocrit 25.3 L Mean Corpuscular Volume 97.7 Mean Corpuscular Hemoglobin 29.7 Mean Corpuscular Hemoglobin Concent 30.4 L Red Cell Distribution Width 17.6 H Platelet Count 117 L Mean Platelet Volume 11.6 H Neutrophils % Segmented Neutrophils % (Manual) 23 L Band Neutrophils % (Manual) 18 H Lymphocytes % Lymphocytes % (Manual) 27 Monocytes % Monocytes % (Manual) 10 Eosinophils % Eosinophils % (Manual) 1 Basophils % Basophils % (Manual) 1 Metamyelocytes % (manual) 12 H Myelocytes % (Manual) 6 H Promyelocytes % (Manual) 2 H Nucleated Red Blood Cells % 16 H Neutrophils # Neutrophils # (Manual) 0.4 L Band Neutrophils # 0.3 Absolute Lymphocytes (Manual) 0.4 L Lymphocytes # Monocytes # Absolute Monocytes (Manual) 0.1 L Eosinophils # Basophils # Basophils # (Manual) 0.0 Metamyelocytes # 0.2 H Myelocytes # 0.1 H Promyelocytes # 0 Nucleated Red Blood Cells # Platelet Estimate DECREASED Polychromasia 1+ Hypochromasia 1+ Anisocytosis 2+ Macrocytosis 1+ Tear Drop Cells 1+ Prothrombin Time 17.0 H Prothrombin Time Ratio 1.3 INR International Normalized Ratio 1.38 Activated Partial Thromboplast Time 38.2 H Sodium Level 154 H Potassium Level 3.7 Chloride Level 121 H Carbon Dioxide Level 21 Anion Gap 16 Blood Urea Nitrogen 42 H Creatinine 1.42 H Glucose Level 68 L Lactic Acid Level 4.0 *H 3.2 *H Calcium Level 7.4 L Total Bilirubin 0.2 Direct Bilirubin 0.20 Indirect Bilirubin 0.0 Aspartate Amino Transf (AST/SGOT) 18 Alanine Aminotransferase (ALT/SGPT) 27 Alkaline Phosphatase 210 H Troponin I 0.035 Total Protein 5.6 L Albumin 2.7 L Globulin 2.90 Albumin/Globulin Ratio 0.93 Urine Color SAUL Urine Clarity CLOUDY A Urine pH 5.0 Urine Specific [place] 1.023 Urine Ketones NEGATIVE Urine Nitrite NEGATIVE Urine Bilirubin NEGATIVE Urine Urobilinogen NEGATIVE Urine Leukocyte Esterase 2+ H Urine Microscopic RBC 160 H Urine Microscopic WBC > 182 H Urine Bacteria FEW A Urine Hyaline Casts FEW A Urine Hemoglobin 2+ H Urine Glucose NEGATIVE Urine Total Protein 2+ H Blood Gas Specimen Source Blood arterial Arterial Blood Date Drawn 04/25/2017 2:00:49 PM Arterial Blood pH (Temp corrected) 7.387 Arterial Blood pCO2 (Temp correct) 36.7 Arterial Blood pO2 (Temp corrected) 134.2 H Arterial Blood HCO3 21.6 L Arterial Blood Base Excess -3.1 L Arterial Blood Oxygen Saturation 98.2 H Haile Test ACCEPTAB Arterial Blood Gas Puncture Site Right Radial Arterial Blood Carboxyhemoglobin 0.3 Arterial Blood Methemoglobin 0.5 Blood Gas A-a O2 Differential 542.1 H Oxyhemoglobin Percent 97.4 Total Hemoglobin 7.3 L Blood Gas Temperature 37.0 Blood Gas Respiration Rate 16.0 Blood Gas Actual Respiration Rate 23 Blood Gas Modality VENT - AC FiO2 100.0 Blood Gas Tidal Volume 400.0 Blood Gas Low PEEP Setting 5.0 Blood Gas Notified Whom RT Blood Gas Notified Time 04/25/2017 2:07:42 PM Test 04/25/17 14:50 04/25/17 16:05 04/25/17 17:30 04/26/17 05:37 Urine Eosinophils % 0.0 Urine Random Creatinine 86.04 Urine Random Sodium 23 L Urine Protein/Creatinine Ratio 1.35 Urine Total Protein 117.0 H Lactic Acid Level 2.8 *H HIV (1&2) Antibody NEGATIVE White Blood Count Pending Red Blood Count Pending Hemoglobin Pending Hematocrit Pending Mean Corpuscular Volume Pending Mean Corpuscular Hemoglobin Pending Mean Corpuscular Hemoglobin Concent Pending Red Cell Distribution Width Pending Platelet Count Pending Mean Platelet Volume Pending Medications Medications Current Medications Potassium Chloride/Dextrose (KCl/D5W) 1,005 ml @ 100 mls/hr Q10H3M IV Last administered on 04/26/17 03:55; Admin Dose 100 MLS/HR; Start 04/25/17 at 13:30 Posaconazole 400 mg 400 mg BID PO ; Start 04/25/17 at 19:00 Aztreonam 50 ml @ 100 mls/hr Q12 IVPB Last administered on 04/25/17 18:58; Admin Dose 100 MLS/HR; Start 04/25/17 at 18:30 Cefepime HCl (Maxipime 2gm/50 ml (Pmx)) 50 ml @ 100 mls/hr Q12 IVPB Last administered on 04/26/17 01:32; Admin Dose 100 MLS/HR; Start 04/25/17 at 23:00 Vancomycin HCl PER PHARMACY DOSING NOTE XX ; Start 04/25/17 at 18:30 Vancomycin HCl (Vancocin) 100 ml @ 100 mls/hr Q12H IVPB Last administered on 03:55; Admin Dose 100 MLS/HR; Start 04/26/17 at 01:00 Acetaminophen (Tylenol Liquid) 650 mg Q4 PRN GTB PAIN AND OR ELEVATED TEMP Last administered on 04/26/17 01:51; Admin Dose 650 MG; Start 04/25/17 at 23:00 Eye Lubricant (Akwa Oint) 1 applic QID BOTH EYES ; Start 04/26/17 at 09:00 Bromocriptine Mesylate (Parlodel) 30 mg DAILY GTB ; Start 04/26/17 at 09:00 Chlorhexidine Gluconate (Peridex) 15 ml BID MM ; Start 04/26/17 at 09:00 Desmopressin Acetate (Ddavp) 0.05 mg DAILY GTB ; Start 04/26/17 at 09:00 Enoxaparin Sodium (Lovenox) 30 mg DAILY SC ; Start 04/26/17 at 09:00 Ferrous Sulfate (Ferrous Sulfate) 220 mg BID GTB ; Start 04/26/17 at 09:00 Hydrocortisone (Cortef) 20 mg DAILY GTB ; Start 04/26/17 at 09:00 Ondansetron HCl (Zofran Tab) 4 mg Q8 PRN GTB NAUSEA AND/OR VOMITING; Start at 23:00 Lactobacillus Acidophilus (Florajen3 Capsule) 1 each DAILY PEG ; Start 04/26/17 at 09:00 Ergocalciferol (Drisdol) 50,000 unit Q7D GTB ; Start 05/02/17 at 09:00 Miscellaneous Information 20 mg BID GTB ; Start 04/26/17 at 09:00; Status UNV Ascorbic Acid 250 mg 250 mg BID GTB ; Start 04/26/17 at 09:00 Norepinephrine (Levophed) 250 ml @ 1.875 mls/ hr TITRATE IV Last administered on 04/26/17t 05:46; Admin Dose 1.875 MLS/HR; Start 04/26/17 at 06:00 SABRINA LOPEZ MD Apr 26, 2017 06:12
[2017-04-26 06:33] LABS: ALBUMIN 2.9 g/dl (3.3-4.9); ALBUMIN/GLOBULIN RATIO 0.93; CALCIUM 8.6 mg/dl (8.4-10.2); CREATININE 1.12 mg/dl (0.61-1.24); POTASSIUM 3.4 mmol/L (3.5-5.1)
[2017-04-26 07:25] LABS: URIC ACID 7.2 mg/dl (3.1-7.9)
[2017-04-26] MEDS ORDERED: PHENYLephrine 40 MG in DEXTROSE 5% 496 ML IV SCH (08:30)
[2017-04-26] MEDS: AZTREONAM 1 GM/NS (PMX) 50 ML IVPB SCH ×2 (08:43→21:07)
[2017-04-26] MEDS: OCULAR LUBRICANT 3.5 GM OPH OINT BOTH EYES SCH ×4 (08:47→21:08)
[2017-04-26] MEDS: L ACIDOPHIL/B LACTIS/B LONGUM CAPSULE PEG SCH (08:48)
[2017-04-26] MEDS: ENOXAPARIN 30 MG/0.3 ML SYG SC SCH (08:48)
[2017-04-26] MEDS: CHLORHEXIDINE GLUCONATE 15 ML UD CUP MM SCH ×2 (08:48→21:07)
[2017-04-26] MEDS: FERROUS SULFATE 60 MG/ML 5ML CUP GTB SCH ×2 (08:48→21:17)
[2017-04-26] MEDS ORDERED: POSACONAZOLE GTB SCH (09:00)
[2017-04-26] MEDS ORDERED: FAMOTIDINE 20 MG GTB SCH (09:00)
[2017-04-26] MEDS: POSACONAZOLE PO SCH ×2 (09:39→22:18)
[2017-04-26] MEDS: BROMOCRIPTINE 2.5 MG TAB GTB SCH (09:40)
[2017-04-26] MEDS: DESMOPRESSIN 0.1 MG TAB GTB SCH (09:40)
[2017-04-26] MEDS: HYDROCORTISONE 20 MG TAB GTB SCH (09:40)
[2017-04-26] MEDS: FAMOTIDINE 20 MG TAB GTB SCH ×2 (09:40→21:07)
[2017-04-26] MEDS: ASCORBIC ACID 250 MG TAB GTB SCH ×2 (09:40→21:07)
--- NOTE | 2017-04-26 09:51 | CONS ---
Date/Time of Note Date/Time of Note DATE: 04/26/17 TIME: 09:44 Assessment/Plan Assessment/Plan Chief Complaint/Hosp Course assessment/impression - septic shock probably due to pneumonia - probable pneumonia - h/o disseminated coccidioides mycosis infection, meningitis - s/p VPS placement - VDRF s/p tracheostomy - PEG dependet status - pancytopenia, due to septic shock on admission - leukocytosis likely secondary to septic shock and steroid R:1. Septic Shock likely 2/2 to HCAP 2. Hx of disseminated Cocci 3. CAMP TENDER shunt 4. trach/gtube dependent 5. Saez cyotpenia likely 2/2 to # 1 recommendations - pending results: cultures of blood and urine, cocci CF - ordered: respiratory culture, influenza A and B screen, legionella antigen - continue empiric treatment: IV vancomycin, cefepime, aztreonam, azithromycin - continue posaconazole management d/w Pt's RN the critical care time I took to care for this Pt today day was from 0900 to 0940 Problems: Consultation Date/Type/Reason Admit Date/Time Apr 25, 2017 at 12:31 Initial Consult Date 04/25/17 Type of Consultation: ID Referring Provider: EHLEN CASTELLANO MD 24 HR Interval Summary Subjective hx not possible: pt non-verbal, pt critical, pt critical status Exam/Review of Systems Vital Signs Vitals Vital Signs Date Time Temp Pulse Resp B/P Pulse Ox O2 Delivery O2 Flow Rate FiO2 04/26/17 08:07 110 21 98 60 04/26/17 07:00 99.8 93/55 Mechanical Ventilator Intake and Output 04/25/17 04/25/17 04/26/17 15:00 23:00 07:00 Intake Total 1880 ml 500 ml Output Total 400 ml Balance 1880 ml 100 ml Exam Constitutional: frail, non-verbal Psych: confusion Head: other (s/p VPS placement) Eyes: nl conjunctiva ENMT: nl external ears & nose, nl nasal mucosa & septum Neck: other (trach) Respiratory: crackles/rales Cardiovascular: nl pulses, regular rate and rhythm Gastrointestinal: non-tender, other (PEG in place, the site is clean), soft Genitourinary - Male: other (FC) Musculoskeletal: nl extremities to inspection Extremities: normal pulses Neurological: unresponsive Skin: nl turgor, other (excoriation of the sacrum) Results Result Diagram: 04/26/17 0537 04/26/17 0537 Results 24 hrs Laboratory Tests Test 04/25/17 11:30 04/25/17 12:02 04/25/17 13:55 04/25/17 14:00 White Blood Count 1.7 L Red Blood Count 2.59 L Hemoglobin 7.7 L Hematocrit 25.3 L Mean Corpuscular Volume 97.7 Mean Corpuscular Hemoglobin 29.7 Mean Corpuscular Hemoglobin Concent 30.4 L Red Cell Distribution Width 17.6 H Platelet Count 117 L Mean Platelet Volume 11.6 H Neutrophils % Segmented Neutrophils % (Manual) 23 L Band Neutrophils % (Manual) 18 H Lymphocytes % Lymphocytes % (Manual) 27 Monocytes % Monocytes % (Manual) 10 Eosinophils % Eosinophils % (Manual) 1 Basophils % Basophils % (Manual) 1 Metamyelocytes % (manual) 12 H Myelocytes % (Manual) 6 H Promyelocytes % (Manual) 2 H Nucleated Red Blood Cells % 16 H Neutrophils # Neutrophils # (Manual) 0.4 L Band Neutrophils # 0.3 Absolute Lymphocytes (Manual) 0.4 L Lymphocytes # Monocytes # Absolute Monocytes (Manual) 0.1 L Eosinophils # Basophils # Basophils # (Manual) 0.0 Metamyelocytes # 0.2 H Myelocytes # 0.1 H Promyelocytes # 0 Nucleated Red Blood Cells # Platelet Estimate DECREASED Polychromasia 1+ Hypochromasia 1+ Anisocytosis 2+ Macrocytosis 1+ Tear Drop Cells 1+ Prothrombin Time 17.0 H Prothrombin Time Ratio 1.3 INR International Normalized Ratio 1.38 Activated Partial Thromboplast Time 38.2 H Sodium Level 154 H Potassium Level 3.7 Chloride Level 121 H Carbon Dioxide Level 21 Anion Gap 16 Blood Urea Nitrogen 42 H Creatinine 1.42 H Glucose Level 68 L Lactic Acid Level 4.0 *H 3.2 *H Calcium Level 7.4 L Total Bilirubin 0.2 Direct Bilirubin 0.20 Indirect Bilirubin 0.0 Aspartate Amino Transf (AST/SGOT) 18 Alanine Aminotransferase (ALT/SGPT) 27 Alkaline Phosphatase 210 H Troponin I 0.035 Total Protein 5.6 L Albumin 2.7 L Globulin 2.90 Albumin/Globulin Ratio 0.93 Urine Color SAUL Urine Clarity CLOUDY A Urine pH 5.0 Urine Specific [place] 1.023 Urine Ketones NEGATIVE Urine Nitrite NEGATIVE Urine Bilirubin NEGATIVE Urine Urobilinogen NEGATIVE Urine Leukocyte Esterase 2+ H Urine Microscopic RBC 160 H Urine Microscopic WBC > 182 H Urine Bacteria FEW A Urine Hyaline Casts FEW A Urine Hemoglobin 2+ H Urine Glucose NEGATIVE Urine Total Protein 2+ H Blood Gas Specimen Source Blood arterial Arterial Blood Date Drawn 04/25/2017 2:00:49 PM Arterial Blood pH (Temp corrected) 7.387 Arterial Blood pCO2 (Temp correct) 36.7 Arterial Blood pO2 (Temp corrected) 134.2 H Arterial Blood HCO3 21.6 L Arterial Blood Base Excess -3.1 L Arterial Blood Oxygen Saturation 98.2 H Haile Test ACCEPTAB Arterial Blood Gas Puncture Site Right Radial Arterial Blood Carboxyhemoglobin 0.3 Arterial Blood Methemoglobin 0.5 Blood Gas A-a O2 Differential 542.1 H Oxyhemoglobin Percent 97.4 Total Hemoglobin 7.3 L Blood Gas Temperature 37.0 Blood Gas Respiration Rate 16.0 Blood Gas Actual Respiration Rate 23 Blood Gas Modality VENT - AC FiO2 100.0 Blood Gas Tidal Volume 400.0 Blood Gas Low PEEP Setting 5.0 Blood Gas Notified Whom RT Blood Gas Notified Time 04/25/2017 2:07:42 PM Test 04/25/17 14:50 04/25/17 16:05 04/25/17 17:30 04/26/17 05:37 Urine Eosinophils % 0.0 Urine Random Creatinine 86.04 Urine Random Sodium 23 L Urine Protein/Creatinine Ratio 1.35 Urine Total Protein 117.0 H Lactic Acid Level 2.8 *H 3.3 *H HIV (1&2) Antibody NEGATIVE White Blood Count 17.5 #H Red Blood Count 2.75 L Hemoglobin 8.1 L Hematocrit 25.4 L Mean Corpuscular Volume 92.4 Mean Corpuscular Hemoglobin 29.5 Mean Corpuscular Hemoglobin Concent 31.9 L Red Cell Distribution Width 18.4 H Platelet Count 97 L Mean Platelet Volume 10.8 H Neutrophils % 82.6 H Lymphocytes % 5.4 L Monocytes % 3.5 Eosinophils % 0.1 Basophils % 0.5 Nucleated Red Blood Cells % 0.0 Neutrophils # 14.4 H Lymphocytes # 0.9 Monocytes # 0.6 Eosinophils # 0.0 Basophils # 0.1 Nucleated Red Blood Cells # 0.0 Sodium Level 148 H Potassium Level 3.4 L Chloride Level 115 H Carbon Dioxide Level 23 Anion Gap 13 Blood Urea Nitrogen 40 H Creatinine 1.12 Glucose Level 103 Uric Acid 7.2 Calcium Level 8.6 Total Bilirubin 0.0 L Direct Bilirubin 0.00 # Indirect Bilirubin 0.0 Aspartate Amino Transf (AST/SGOT) 32 # Alanine Aminotransferase (ALT/SGPT) 28 Alkaline Phosphatase 170 H Creatine Kinase 195 Total Protein 6.0 L Albumin 2.9 L Globulin 3.10 Albumin/Globulin Ratio 0.93 Medications Medications Current Medications Potassium Chloride/Dextrose (KCl/D5W) 1,005 ml @ 100 mls/hr Q10H3M IV Last administered on 04/26/17 03:55; Admin Dose 100 MLS/HR; Start 04/25/17 at 13:30 Posaconazole 400 mg 400 mg BID PO Last administered on 04/26/17 09:39; Admin Dose 400 MG; Start 04/25/17 at 19:00 Aztreonam 50 ml @ 100 mls/hr Q12 IVPB Last administered on 04/26/17 08:43; Admin Dose 100 MLS/HR; Start 04/25/17 at 18:30 Cefepime HCl (Maxipime 2gm/50 ml (Pmx)) 50 ml @ 100 mls/hr Q12 IVPB Last administered on 04/26/17 01:32; Admin Dose 100 MLS/HR; Start 04/25/17 at 23:00 Vancomycin HCl (Vanco Iv Per Pharmacy) PER PHARMACY DOSING NOTE XX ; Start 04/25 at 18:30 Acetaminophen (Tylenol Liquid) 650 mg Q4 PRN GTB PAIN AND OR ELEVATED TEMP Last administered on 04/26/17 01:51; Admin Dose 650 MG; Start 04/25/17 at 23:00 Eye Lubricant (Akwa Oint) 1 applic QID BOTH EYES Last administered on 08:47; Admin Dose 1 APPLIC; Start 04/26/17 at 09:00 Bromocriptine Mesylate (Parlodel) 30 mg DAILY GTB Last administered on 09:40; Admin Dose 30 MG; Start 04/26/17 at 09:00 Chlorhexidine Gluconate (Peridex) 15 ml BID MM Last administered on 04/26/17 08:48; Admin Dose 15 ML; Start 04/26/17 at 09:00 Desmopressin Acetate (Ddavp) 0.05 mg DAILY GTB Last administered on 04/26/17 09:40; Admin Dose 0.05 MG; Start 04/26/17 at 09:00 Enoxaparin Sodium (Lovenox) 30 mg DAILY SC ; Start 04/26/17 at 09:00 Ferrous Sulfate (Feosol Liquid Cup) 300 mg BID GTB Last administered on 08:48; Admin Dose 300 MG; Start 04/26/17 at 09:00 Hydrocortisone (Cortef) 20 mg DAILY GTB Last administered on 04/26/17 09:40; Admin Dose 20 MG; Start 04/26/17 at 09:00 Ondansetron HCl (Zofran Tab) 4 mg Q8 PRN GTB NAUSEA AND/OR VOMITING; Start at 23:00 Lactobacillus Acidophilus (Florajen3 Capsule) 1 each DAILY PEG Last administered on 04/26/17 08:48; Admin Dose 1 EACH; Start 04/26/17 at 09:00 Ergocalciferol (Drisdol) 50,000 unit Q7D GTB ; Start 05/02/17 at 09:00 Ascorbic Acid 250 mg 250 mg BID GTB Last administered on 04/26/17 09:40; Admin Dose 250 MG; Start 04/26/17 at 09:00 Norepinephrine 250 ml @ 1.875 mls/ hr TITRATE IV Last administered on 05:46; Admin Dose 1.875 MLS/HR; Start 04/26/17 at 06:00 Vancomycin HCl (Vancocin) 100 ml @ 100 mls/hr Q8H IVPB ; Start 04/26/17 at 12: 00 Famotidine 20 mg 20 mg BID GTB Last administered on 04/26/17 09:40; Admin Dose 20 MG; Start 04/26/17 at 09:00 Phenylephrine HCl/ Dextrose (Jose-Syneph/D5W) 500 ml @ 75 mls/hr TITRATE IV ; Start 04/26/17 at 08:30 ELENI EVANS M.D. Apr 26, 2017 09:51
[2017-04-26] MEDS ORDERED: PHENYLephrine 20MG IN 250 ML 0 ML ONE (10:05)
[2017-04-26] MEDS ORDERED: VANCOMYCIN 750 MG in SOD CHLORIDE 0.9% 150 ML IVPB SCH (12:00)
[2017-04-26] MEDS: VANCOMYCIN 500MG/NS (PMX) 100 ML IVPB SCH ×2 (12:39→20:48)
[2017-04-26] MEDS ORDERED: morphine 10 MG INJ IM PRN (16:30)
[2017-04-26] MEDS: morphine 2 MG INJ IV PRN ×2 (16:35→23:07)
--- NOTE | 2017-04-26 17:01 | PN ---
Date/Time of Note Date/Time of Note DATE: 04/26/17 TIME: 16:52 Assessment/Plan VTE Prophylaxis VTE Prophylaxis Intervention: SCD's Lines/Catheters IV C[facility]ter Type ([facility]): Peripheral IV Urinary Cath still in place: Yes Reason Cath still needed: urinary retention Assessment/Plan Chief Complaint/Hosp Course Patient is currently on Levophed drip for hemodynamic support, on ventilatory support via tracheostomy. Patient with low-grade fever earlier today and tachycardia, currently in sinus rhythm Problems: Assessment/Plan - Septic shock due to bilateral pneumonia. Continue broad-spectrum antibiotics follow-up on final sputum culture. 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 - Acute kidney injury. - Hypernatremia. - Pancytopenia most likely secondary to sepsis - Dysphagia with PEG. Resume tube G-tube feeding - VDRF with tracheostomy - Hydrocephalus, status post HAND WORKER shunt. Further recommendations based on clinical course. Plan of care discussed with Dr. Dozier Exam/Review of Systems Vital Signs Vitals Vital Signs Date Time Temp Pulse Resp B/P Pulse Ox O2 Delivery O2 Flow Rate FiO2 04/26/17 16:00 100 04/26/17 16:00 98.5 28 97/61 100 Mechanical Ventilator 04/26/17 15:25 40 Intake and Output 04/25/17 04/25/17 04/26/17 15:00 23:00 07:00 Intake Total 1880 ml 500 ml Output Total 400 ml Balance 1880 ml 100 ml Exam Constitutional: non-verbal Neck: other (Tracheostomy), supple Respiratory: diminished breath sounds Cardiovascular: nl pulses Gastrointestinal: non-tender, other (G-tube), soft Extremities: normal pulses Neurological: lethargic Results Result Diagram: 04/26/17 0537 04/26/17 0537 Results 24 hrs Laboratory Tests Test 04/25/17 17:30 04/26/17 05:37 HIV (1&2) Antibody NEGATIVE White Blood Count 17.5 #H Red Blood Count 2.75 L Hemoglobin 8.1 L Hematocrit 25.4 L Mean Corpuscular Volume 92.4 Mean Corpuscular Hemoglobin 29.5 Mean Corpuscular Hemoglobin Concent 31.9 L Red Cell Distribution Width 18.4 H Platelet Count 97 L Mean Platelet Volume 10.8 H Neutrophils % 82.6 H Lymphocytes % 5.4 L Monocytes % 3.5 Eosinophils % 0.1 Basophils % 0.5 Nucleated Red Blood Cells % 0.0 Neutrophils # 14.4 H Lymphocytes # 0.9 Monocytes # 0.6 Eosinophils # 0.0 Basophils # 0.1 Nucleated Red Blood Cells # 0.0 Sodium Level 148 H Potassium Level 3.4 L Chloride Level 115 H Carbon Dioxide Level 23 Anion Gap 13 Blood Urea Nitrogen 40 H Creatinine 1.12 Glucose Level 103 Lactic Acid Level 3.3 *H Uric Acid 7.2 Calcium Level 8.6 Total Bilirubin 0.0 L Direct Bilirubin 0.00 # Indirect Bilirubin 0.0 Aspartate Amino Transf (AST/SGOT) 32 # Alanine Aminotransferase (ALT/SGPT) 28 Alkaline Phosphatase 170 H Creatine Kinase 195 Total Protein 6.0 L Albumin 2.9 L Globulin 3.10 Albumin/Globulin Ratio 0.93 Medications Medications Current Medications Potassium Chloride/Dextrose (KCl/D5W) 1,005 ml @ 100 mls/hr Q10H3M IV Last administered on 04/26/17 15:37; Admin Dose 100 MLS/HR; Start 04/25/17 at 13:30 Posaconazole 400 mg 400 mg BID PO Last administered on 04/26/17 09:39; Admin Dose 400 MG; Start 04/25/17 at 19:00 Aztreonam 50 ml @ 100 mls/hr Q12 IVPB Last administered on 04/26/17 08:43; Admin Dose 100 MLS/HR; Start 04/25/17 at 18:30 Cefepime HCl (Maxipime 2gm/50 ml (Pmx)) 50 ml @ 100 mls/hr Q12 IVPB Last administered on 04/26/17 10:23; Admin Dose 100 MLS/HR; Start 04/25/17 at 23:00 Vancomycin HCl (Vanco Iv Per Pharmacy) PER PHARMACY DOSING NOTE XX ; Start 04/25 at 18:30 Acetaminophen (Tylenol Liquid) 650 mg Q4 PRN GTB PAIN AND OR ELEVATED TEMP Last administered on 04/26/17 11:29; Admin Dose 650 MG; Start 04/25/17 at 23:00 Eye Lubricant (Akwa Oint) 1 applic QID BOTH EYES Last administered on 16:35; Admin Dose 1 APPLIC; Start 04/26/17 at 09:00 Bromocriptine Mesylate (Parlodel) 30 mg DAILY GTB Last administered on 09:40; Admin Dose 30 MG; Start 04/26/17 at 09:00 Chlorhexidine Gluconate (Peridex) 15 ml BID MM Last administered on 04/26/17 08:48; Admin Dose 15 ML; Start 04/26/17 at 09:00 Desmopressin Acetate (Ddavp) 0.05 mg DAILY GTB Last administered on 04/26/17 09:40; Admin Dose 0.05 MG; Start 04/26/17 at 09:00 Enoxaparin Sodium (Lovenox) 30 mg DAILY SC ; Start 04/26/17 at 09:00 Ferrous Sulfate (Feosol Liquid Cup) 300 mg BID GTB Last administered on 08:48; Admin Dose 300 MG; Start 04/26/17 at 09:00 Hydrocortisone (Cortef) 20 mg DAILY GTB Last administered on 04/26/17 09:40; Admin Dose 20 MG; Start 04/26/17 at 09:00 Ondansetron HCl (Zofran Tab) 4 mg Q8 PRN GTB NAUSEA AND/OR VOMITING; Start at 23:00 Lactobacillus Acidophilus (Florajen3 Capsule) 1 each DAILY PEG Last administered on 04/26/17 08:48; Admin Dose 1 EACH; Start 04/26/17 at 09:00 Ergocalciferol (Drisdol) 50,000 unit Q7D GTB ; Start 05/02/17 at 09:00 Ascorbic Acid 250 mg 250 mg BID GTB Last administered on 04/26/17 09:40; Admin Dose 250 MG; Start 04/26/17 at 09:00 Vancomycin HCl (Vancocin) 100 ml @ 100 mls/hr Q8H IVPB Last administered on 12:39; Admin Dose 100 MLS/HR; Start 04/26/17 at 12:00 Famotidine 20 mg 20 mg BID GTB Last administered on 04/26/17 09:40; Admin Dose 20 MG; Start 04/26/17 at 09:00 Phenylephrine HCl/ Dextrose (Jose-Syneph/D5W) 500 ml @ 75 mls/hr TITRATE IV ; Start 04/26/17 at 08:30 Miscellaneous Information VANCOMYCIN TROUGH AT 0300 ONCE ONCE XX ; Start 04/27/17 at 03:00; Stop 04/27/17 at 03:01 Norepinephrine/ Dextrose (Levophed/D5W) 500 ml @ 1.87 mls/hr TITRATE IV Last administered on 04/26/17 14:46; Admin Dose 41.25 MLS/HR; Start 04/26/17 at 14: 30 Morphine Sulfate (morphine) 2 mg Q4H PRN IV PAIN Last administered on 16:35; Admin Dose 2 MG; Start 04/26/17 at 16:30 MANDIE DAVE Apr 26, 2017 17:01
--- NOTE | 2017-04-26 18:18 | CONS ---
Date/Time of Note Date/Time of Note DATE: 04/26/17 TIME: 18:16 Assessment/Plan Assessment/Plan Additional Assessment/Plan 1. Non Oliguric Acute kidney injury due to septic shock 2. Hypernaremia 3. Lactic acidosis due to septic shock 4. Acute on chronic resp failure s/p Tracheostomy 5. H/o Fungal meningitis, currently comatose 6. 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 Plan: Na improving, Cr improved to normal continue current IVF D5W with KCL Bp stable will follow up, Expecting Na to improve with current IVF Consultation Date/Type/Reason Admit Date/Time Apr 25, 2017 at 12:31 Initial Consult Date 04/25/17 Type of Consultation: NEPHROLOGY Referring Provider: HELEN CASTELLANO MD Exam/Review of Systems Vital Signs Vitals Vital Signs Date Time Temp Pulse Resp B/P Pulse Ox O2 Delivery O2 Flow Rate FiO2 04/26/17 17:31 97 24 99 40 04/26/17 17:15 102/68 04/26/17 17:00 97.9 Mechanical Ventilator Intake and Output 04/25/17 04/25/17 04/26/17 15:00 23:00 07:00 Intake Total 1880 ml 500 ml Output Total 400 ml Balance 1880 ml 100 ml Results Result Diagram: 04/26/17 0537 04/26/17 0537 Results 24 hrs Laboratory Tests Test 04/26/17 05:37 White Blood Count 17.5 #H Red Blood Count 2.75 L Hemoglobin 8.1 L Hematocrit 25.4 L Mean Corpuscular Volume 92.4 Mean Corpuscular Hemoglobin 29.5 Mean Corpuscular Hemoglobin Concent 31.9 L Red Cell Distribution Width 18.4 H Platelet Count 97 L Mean Platelet Volume 10.8 H Neutrophils % 82.6 H Lymphocytes % 5.4 L Monocytes % 3.5 Eosinophils % 0.1 Basophils % 0.5 Nucleated Red Blood Cells % 0.0 Neutrophils # 14.4 H Lymphocytes # 0.9 Monocytes # 0.6 Eosinophils # 0.0 Basophils # 0.1 Nucleated Red Blood Cells # 0.0 Sodium Level 148 H Potassium Level 3.4 L Chloride Level 115 H Carbon Dioxide Level 23 Anion Gap 13 Blood Urea Nitrogen 40 H Creatinine 1.12 Glucose Level 103 Lactic Acid Level 3.3 *H Uric Acid 7.2 Calcium Level 8.6 Total Bilirubin 0.0 L Direct Bilirubin 0.00 # Indirect Bilirubin 0.0 Aspartate Amino Transf (AST/SGOT) 32 # Alanine Aminotransferase (ALT/SGPT) 28 Alkaline Phosphatase 170 H Creatine Kinase 195 Total Protein 6.0 L Albumin 2.9 L Globulin 3.10 Albumin/Globulin Ratio 0.93 Medications Medications Current Medications Potassium Chloride/Dextrose (KCl/D5W) 1,005 ml @ 100 mls/hr Q10H3M IV Last administered on 04/26/17 15:37; Admin Dose 100 MLS/HR; Start 04/25/17 at 13:30 Posaconazole 400 mg 400 mg BID PO Last administered on 04/26/17 09:39; Admin Dose 400 MG; Start 04/25/17 at 19:00 Aztreonam 50 ml @ 100 mls/hr Q12 IVPB Last administered on 04/26/17 08:43; Admin Dose 100 MLS/HR; Start 04/25/17 at 18:30 Cefepime HCl (Maxipime 2gm/50 ml (Pmx)) 50 ml @ 100 mls/hr Q12 IVPB Last administered on 04/26/17 10:23; Admin Dose 100 MLS/HR; Start 04/25/17 at 23:00 Vancomycin HCl (Vanco Iv Per Pharmacy) PER PHARMACY DOSING NOTE XX ; Start 04/25 at 18:30 Acetaminophen (Tylenol Liquid) 650 mg Q4 PRN GTB PAIN AND OR ELEVATED TEMP Last administered on 04/26/17 11:29; Admin Dose 650 MG; Start 04/25/17 at 23:00 Eye Lubricant (Akwa Oint) 1 applic QID BOTH EYES Last administered on 16:35; Admin Dose 1 APPLIC; Start 04/26/17 at 09:00 Bromocriptine Mesylate (Parlodel) 30 mg DAILY GTB Last administered on 09:40; Admin Dose 30 MG; Start 04/26/17 at 09:00 Chlorhexidine Gluconate (Peridex) 15 ml BID MM Last administered on 04/26/17 08:48; Admin Dose 15 ML; Start 04/26/17 at 09:00 Desmopressin Acetate (Ddavp) 0.05 mg DAILY GTB Last administered on 04/26/17 09:40; Admin Dose 0.05 MG; Start 04/26/17 at 09:00 Enoxaparin Sodium (Lovenox) 30 mg DAILY SC ; Start 04/26/17 at 09:00 Ferrous Sulfate (Feosol Liquid Cup) 300 mg BID GTB Last administered on 08:48; Admin Dose 300 MG; Start 04/26/17 at 09:00 Hydrocortisone (Cortef) 20 mg DAILY GTB Last administered on 04/26/17 09:40; Admin Dose 20 MG; Start 04/26/17 at 09:00 Ondansetron HCl (Zofran Tab) 4 mg Q8 PRN GTB NAUSEA AND/OR VOMITING; Start at 23:00 Lactobacillus Acidophilus (Florajen3 Capsule) 1 each DAILY PEG Last administered on 04/26/17 08:48; Admin Dose 1 EACH; Start 04/26/17 at 09:00 Ergocalciferol (Drisdol) 50,000 unit Q7D GTB ; Start 05/02/17 at 09:00 Ascorbic Acid 250 mg 250 mg BID GTB Last administered on 04/26/17 09:40; Admin Dose 250 MG; Start 04/26/17 at 09:00 Vancomycin HCl (Vancocin) 100 ml @ 100 mls/hr Q8H IVPB Last administered on 12:39; Admin Dose 100 MLS/HR; Start 04/26/17 at 12:00 Famotidine 20 mg 20 mg BID GTB Last administered on 04/26/17 09:40; Admin Dose 20 MG; Start 04/26/17 at 09:00 Phenylephrine HCl/ Dextrose (Jose-Syneph/D5W) 500 ml @ 75 mls/hr TITRATE IV ; Start 04/26/17 at 08:30 Miscellaneous Information VANCOMYCIN TROUGH AT 0300 ONCE ONCE XX ; Start 04/27/17 at 03:00; Stop 04/27/17 at 03:01 Norepinephrine/ Dextrose (Levophed/D5W) 500 ml @ 1.87 mls/hr TITRATE IV Last administered on 04/26/17 14:46; Admin Dose 41.25 MLS/HR; Start 04/26/17 at 14: 30 Morphine Sulfate (morphine) 2 mg Q4H PRN IV PAIN Last administered on t 16:35; Admin Dose 2 MG; Start 04/26/17 at 16:30 FARHAT RUBIO MD Apr 26, 2017 18:17
[2017-04-27] VITALS (105 sets, daily range): BP systolic 84–136; BP diastolic 43–85; PULSE 66–112; RESP 20–45
[2017-04-27] MEDS: POTASSIUM CHLORIDE 10 MEQ in DEXTROSE 5% 1,000 ML IV SCH (00:39)
[2017-04-27 03:27] LABS: ABNORMAL IP MESSAGE 1; BASOPHIL # 0.1 10^3/ul (0.0-0.1); BASOPHILS % 0.5 % (0.0-2.0); EOSINOPHILS # 0.1 10^3/ul (0.0-0.5); EOSINOPHILS % 0.5 % (0.0-7.0); HEMATOCRIT 23.5 % (42.0-52.0); HEMOGLOBIN 7.6 g/dl (14.0-18.0); LYMPHOCYTES # 0.5 10^3/ul (0.8-2.9); MEAN CORPUSCULAR HEMOGLOBIN 29.6 pg (29.0-33.0); MEAN CORPUSCULAR HGB CONC 32.3 g/dl (32.0-37.0); MEAN CORPUSCULAR VOLUME 91.4 fl (82.0-101.0); MEAN PLATELET VOLUME 10.5 fl (7.4-10.4); MONOCYTE # 0.4 10^3/ul (0.3-0.9); NEUTROPHIL # 11.7 10^3/ul (1.6-7.5); PLATELET COUNT 82 10^3/UL (140-415); POSITIVE DIFF @See below; RED BLOOD COUNT 2.57 10^6/ul (4.70-6.10); RED CELL DISTRIBUTION WIDTH 17.8 % (11.5-14.5); WHITE BLOOD COUNT 12.8 10^3/ul (4.8-10.8)
[2017-04-27 03:41] LABS: NEUTROPHILS % 91.1 % (39.0-77.0)
[2017-04-27 03:58] LABS: ALBUMIN 2.8 g/dl (3.3-4.9); ALBUMIN/GLOBULIN RATIO 0.9; CALCIUM 9.4 mg/dl (8.4-10.2); CREATININE 0.87 mg/dl (0.61-1.24); TOTAL PROTEIN 5.9 g/dl (6.1-8.1)
[2017-04-27 04:01] LABS: POTASSIUM 2.3 mmol/L (3.5-5.1)
[2017-04-27 05:47] LABS: CREATININE 0.85 mg/dl (0.61-1.24)
[2017-04-27 05:52] LABS: POTASSIUM 2.3 mmol/L (3.5-5.1)
[2017-04-27] MEDS ORDERED: POTASSIUM CHLORIDE IVPB ONE (06:00)
[2017-04-27] MEDS ORDERED: SOD CHLORIDE 0.9% IVPB ONE (06:00)
[2017-04-27] MEDS: VANCOMYCIN 500MG/NS (PMX) 100 ML IVPB SCH ×3 (06:44→21:14)
[2017-04-27] MEDS: POTASSIUM CHLORIDE 50 ML IVPB SCH ×2 (06:52→08:45)
[2017-04-27] MEDS ORDERED: NORepinephrine 8MG/250 ML (PMX 250 ML ONE (07:43)
[2017-04-27] MEDS: OCULAR LUBRICANT 3.5 GM OPH OINT BOTH EYES SCH ×4 (08:45→20:26)
[2017-04-27] MEDS: DESMOPRESSIN 0.1 MG TAB GTB SCH ×2 (08:46→21:15)
[2017-04-27] MEDS: POSACONAZOLE PO SCH (08:46)
[2017-04-27] MEDS: CHLORHEXIDINE GLUCONATE 15 ML UD CUP MM SCH ×2 (08:46→21:14)
[2017-04-27] MEDS: ACETAMINOPHEN 650MG/20.3ML CUP GTB PRN (08:46)
[2017-04-27] MEDS: HYDROCORTISONE 20 MG TAB GTB SCH (08:46)
[2017-04-27] MEDS: ASCORBIC ACID 250 MG TAB GTB SCH ×2 (08:46→21:15)
[2017-04-27] MEDS: FERROUS SULFATE 60 MG/ML 5ML CUP GTB SCH ×2 (08:46→21:14)
[2017-04-27] MEDS: L ACIDOPHIL/B LACTIS/B LONGUM CAPSULE PEG SCH (08:46)
[2017-04-27] MEDS: FAMOTIDINE 20 MG TAB GTB SCH ×2 (08:46→21:15)
[2017-04-27] MEDS: AZTREONAM 1 GM/NS (PMX) 50 ML IVPB SCH ×2 (08:47→21:15)
--- NOTE | 2017-04-27 08:49 | CONS ---
Date/Time of Note Date/Time of Note DATE: 04/27/17 TIME: 08:46 Assessment/Plan Assessment/Plan Chief Complaint/Hosp Course assessment/impression - septic shock due to pneumonia and UTI - UTI due to Gram negative rods - b/l pneumonia - herpes labialis - h/o disseminated coccidioides mycosis infection, meningitis - s/p VPS placement - VDRF s/p tracheostomy - PEG dependet status - pancytopenia, due to septic shock on admission - thrombocytopenia - leukocytosis likely secondary to septic shock and steroid recommendations - pending results: cultures of blood and urine, cocci CF, respiratory culture, legionella antigen - ordered posaconazole trough level today - continue empiric treatment: IV vancomycin, cefepime, aztreonam; will adjust antibiotics further based on the final culture results - continue posaconazole; Per Pt's family he was taking 300 mg three times daily. The dose was adjusted per "protocol" here at 400 mg twice daily. Pt's RN spoke with Dilshad Hickey. He will look into this protocol. If we do not have 300 mg dose, will ask Pt's family to bring his own supply. - start acyclovir for herpess labialis (04/27/2017-) management d/w Pt's RN, father the critical care time I took to care for this Pt today day was from 0820 to 0900 Problems: Consultation Date/Type/Reason Admit Date/Time Apr 25, 2017 at 12:31 Initial Consult Date 04/25/17 Type of Consultation: ID Referring Provider: HELEN CASTELLANO MD 24 HR Interval Summary Subjective hx not possible: pt non-verbal, pt critical, pt critical status Exam/Review of Systems Vital Signs Vitals Vital Signs Date Time Temp Pulse Resp B/P Pulse Ox O2 Delivery O2 Flow Rate FiO2 04/27/17 07:00 109 23 98/55 96 04/27/17 05:03 40 04/27/17 04:00 98.6 04/26/17 20:00 Mechanical Ventilator Intake and Output 04/26/17 04/26/17 04/27/17 14:59 22:59 06:59 Intake Total 1571.8750 ml 1263.1100 ml 1446.25 ml Output Total 1175 ml 1475 ml 2450 ml Balance 396.8750 ml -211.8900 ml -1003.75 ml Exam Constitutional: frail, non-verbal Psych: confusion Head: normocephalic, other (s/p VPS) Eyes: nl conjunctiva, nl lids ENMT: nl external ears & nose, nl nasal mucosa & septum, other (crusted lesions on the lower lip) Neck: other (trach) Respiratory: crackles/rales Cardiovascular: nl pulses, regular rate and rhythm Gastrointestinal: non-tender, soft Genitourinary - Male: other (FC) Musculoskeletal: nl extremities to inspection Extremities: normal pulses Neurological: confused, lethargic, other (decerebrate) Skin: nl turgor Results Result Diagram: 04/27/17 0308 04/27/17 0445 Results 24 hrs Laboratory Tests Test 04/27/17 03:08 04/27/17 04:45 04/27/17 05:24 White Blood Count 12.8 #H Red Blood Count 2.57 L Hemoglobin 7.6 L Hematocrit 23.5 L Mean Corpuscular Volume 91.4 Mean Corpuscular Hemoglobin 29.6 Mean Corpuscular Hemoglobin Concent 32.3 Red Cell Distribution Width 17.8 H Platelet Count 82 L Mean Platelet Volume 10.5 H Neutrophils % 91.1 H Lymphocytes % 4.0 L Monocytes % 3.0 Eosinophils % 0.5 Basophils % 0.5 Nucleated Red Blood Cells % 0.0 Neutrophils # 11.7 H Lymphocytes # 0.5 L Monocytes # 0.4 Eosinophils # 0.1 Basophils # 0.1 Nucleated Red Blood Cells # 0.0 Sodium Level 150 H 153 H Potassium Level 2.3 *L 2.3 *L Chloride Level 117 H 122 H Carbon Dioxide Level 24 25 Anion Gap 11 8 Blood Urea Nitrogen 26 #H 26 H Creatinine 0.87 0.85 Glucose Level 262 #H 134 # Calcium Level 9.4 10.0 Magnesium Level 2.0 Total Bilirubin 0.0 L Direct Bilirubin 0.00 Indirect Bilirubin 0.0 Aspartate Amino Transf (AST/SGOT) 23 Alanine Aminotransferase (ALT/SGPT) 24 Alkaline Phosphatase 261 #H Total Protein 5.9 L Albumin 2.8 L Globulin 3.10 Albumin/Globulin Ratio 0.90 Vancomycin Level Trough 17.0 Lab Scanned Report BLOOD TRANSFUSION Medications Medications Current Medications Potassium Chloride/Dextrose (KCl/D5W) 1,005 ml @ 100 mls/hr Q10H3M IV Last administered on 04/27/17 00:39; Admin Dose 100 MLS/HR; Start 04/25/17 at 13:30 Posaconazole 400 mg 400 mg BID PO Last administered on 04/26/17 22:18; Admin Dose 400 MG; Start 04/25/17 at 19:00 Aztreonam 50 ml @ 100 mls/hr Q12 IVPB Last administered on 04/26/17 21:07; Admin Dose 100 MLS/HR; Start 04/25/17 at 18:30 Cefepime HCl (Maxipime 2gm/50 ml (Pmx)) 50 ml @ 100 mls/hr Q12 IVPB Last administered on 04/26/17 21:07; Admin Dose 100 MLS/HR; Start 04/25/17 at 23:00 Vancomycin HCl (Vanco Iv Per Pharmacy) PER PHARMACY DOSING NOTE XX ; Start 04/25 at 18:30 Acetaminophen (Tylenol Liquid) 650 mg Q4 PRN GTB PAIN AND OR ELEVATED TEMP Last administered on 04/26/17 11:29; Admin Dose 650 MG; Start 04/25/17 at 23:00 Eye Lubricant (Akwa Oint) 1 applic QID BOTH EYES Last administered on 21:08; Admin Dose 1 APPLIC; Start 04/26/17 at 09:00 Bromocriptine Mesylate (Parlodel) 30 mg DAILY GTB Last administered on 09:40; Admin Dose 30 MG; Start 04/26/17 at 09:00 Chlorhexidine Gluconate (Peridex) 15 ml BID MM Last administered on 04/26/17 21:07; Admin Dose 15 ML; Start 04/26/17 at 09:00 Desmopressin Acetate (Ddavp) 0.05 mg DAILY GTB Last administered on 04/26/17 09:40; Admin Dose 0.05 MG; Start 04/26/17 at 09:00 Enoxaparin Sodium (Lovenox) 30 mg DAILY SC ; Start 04/26/17 at 09:00 Ferrous Sulfate (Feosol Liquid Cup) 300 mg BID GTB Last administered on 21:17; Admin Dose 300 MG; Start 04/26/17 at 09:00 Hydrocortisone (Cortef) 20 mg DAILY GTB Last administered on 04/26/17 09:40; Admin Dose 20 MG; Start 04/26/17 at 09:00 Ondansetron HCl (Zofran Tab) 4 mg Q8 PRN GTB NAUSEA AND/OR VOMITING; Start at 23:00 Lactobacillus Acidophilus (Florajen3 Capsule) 1 each DAILY PEG Last administered on 04/26/17 08:48; Admin Dose 1 EACH; Start 04/26/17 at 09:00 Ergocalciferol (Drisdol) 50,000 unit Q7D GTB ; Start 05/02/17 at 09:00 Ascorbic Acid 250 mg 250 mg BID GTB Last administered on 04/26/17 21:07; Admin Dose 250 MG; Start 04/26/17 at 09:00 Vancomycin HCl (Vancocin) 100 ml @ 100 mls/hr Q8H IVPB Last administered on 06:44; Admin Dose 100 MLS/HR; Start 04/26/17 at 12:00 Famotidine 20 mg 20 mg BID GTB Last administered on 04/26/17 21:07; Admin Dose 20 MG; Start 04/26/17 at 09:00 Phenylephrine HCl 40 mg/Dextrose 500 ml @ 75 mls/hr TITRATE IV ; Start at 08:30 Norepinephrine/ Dextrose (Levophed/D5W) 500 ml @ 1.87 mls/hr TITRATE IV Last administered on 04/26/17 14:46; Admin Dose 41.25 MLS/HR; Start 04/26/17 at 14: 30 Morphine Sulfate 2 mg 2 mg Q4H PRN IV PAIN Last administered on 04/26/17 23:07 ; Admin Dose 2 MG; Start 04/26/17 at 16:30 Potassium Chloride (KCl 20 MEQ/50 ML SW) 50 ml @ 25 mls/hr Q2H IVPB Last administered on 04/27/17 06:52; Admin Dose 25 MLS/HR; Start 04/27/17 at 06:30; Stop 04/27/17 at 10:29 ELENI EVANS M.D. Apr 27, 2017 08:49
[2017-04-27] MEDS: ENOXAPARIN 30 MG/0.3 ML SYG SC SCH (09:00)
[2017-04-27] MEDS: CEFEPIME 2GM/50 ML IVPB SCH (10:05)
--- NOTE | 2017-04-27 10:20 | CONS ---
Date/Time of Note Date/Time of Note DATE: 04/27/17 TIME: 10:17 Consult Date/Type/Reason Admit Date/Time Apr 25, 2017 at 12:31 Initial Consult Date 04/25/17 Type of Consultation: Pulmonary Ordering Provider: HELEN CASTELLANO MD Subjective Continues mechanical ventilation. Remains somnolent. Continues vasopressor support. Objective Vital Signs Date Time Temp Pulse Resp B/P Pulse Ox O2 Delivery O2 Flow Rate FiO2 04/27/17 08:00 111 04/27/17 07:00 23 98/55 96 04/27/17 05:03 40 04/27/17 04:00 98.6 04/26/17 20:00 Mechanical Ventilator Intake and Output 04/26/17 04/26/17 04/27/17 15:00 23:00 07:00 Intake Total 1682.1850 ml 1606.5500 ml 1072.50 ml Output Total 1450 ml 1450 ml 2500 ml Balance 232.1850 ml 156.5500 ml -1427.50 ml Exam PHYSICAL EXAMINATION GENERAL: Chronically appearing young gentleman on mechanical ventilation. VITAL SIGNS: see below. HEENT: Pupils equal, round, and reactive to light. Tracheostomy site clean and intact. CARDIAC: S1, S2, 1/6 systolic ejection murmur CHEST: Diminished air entry bilaterally. ABDOMEN: Mildly distended. Bowel sounds present no guarding or rebound EXTREMITIES: No cyanosis, clubbing edema +1 NEUROLOGIC: Generalized weakness, unable to assess. Results/Medications Result Diagram: 04/27/17 0308 04/27/17 0445 Results 24 hrs Laboratory Tests Test 04/27/17 03:08 04/27/17 04:45 04/27/17 05:24 White Blood Count 12.8 #H Red Blood Count 2.57 L Hemoglobin 7.6 L Hematocrit 23.5 L Mean Corpuscular Volume 91.4 Mean Corpuscular Hemoglobin 29.6 Mean Corpuscular Hemoglobin Concent 32.3 Red Cell Distribution Width 17.8 H Platelet Count 82 L Mean Platelet Volume 10.5 H Neutrophils % 91.1 H Lymphocytes % 4.0 L Monocytes % 3.0 Eosinophils % 0.5 Basophils % 0.5 Nucleated Red Blood Cells % 0.0 Neutrophils # 11.7 H Lymphocytes # 0.5 L Monocytes # 0.4 Eosinophils # 0.1 Basophils # 0.1 Nucleated Red Blood Cells # 0.0 Sodium Level 150 H 153 H Potassium Level 2.3 *L 2.3 *L Chloride Level 117 H 122 H Carbon Dioxide Level 24 25 Anion Gap 11 8 Blood Urea Nitrogen 26 #H 26 H Creatinine 0.87 0.85 Glucose Level 262 #H 134 # Calcium Level 9.4 10.0 Magnesium Level 2.0 Total Bilirubin 0.0 L Direct Bilirubin 0.00 Indirect Bilirubin 0.0 Aspartate Amino Transf (AST/SGOT) 23 Alanine Aminotransferase (ALT/SGPT) 24 Alkaline Phosphatase 261 #H Total Protein 5.9 L Albumin 2.8 L Globulin 3.10 Albumin/Globulin Ratio 0.90 Vancomycin Level Trough 17.0 Lab Scanned Report BLOOD TRANSFUSION Medications Current Medications Potassium Chloride/Dextrose (KCl/D5W) 1,005 ml @ 100 mls/hr Q10H3M IV Last administered on 04/27/17 00:39; Admin Dose 100 MLS/HR; Start 04/25/17 at 13:30 Posaconazole 400 mg 400 mg BID PO Last administered on 04/27/17 08:46; Admin Dose 400 MG; Start 04/25/17 at 19:00 Aztreonam 50 ml @ 100 mls/hr Q12 IVPB Last administered on 04/27/17 08:47; Admin Dose 100 MLS/HR; Start 04/25/17 at 18:30 Cefepime HCl (Maxipime 2gm/50 ml (Pmx)) 50 ml @ 100 mls/hr Q12 IVPB Last administered on 04/27/17 10:05; Admin Dose 100 MLS/HR; Start 04/25/17 at 23:00 Vancomycin HCl (Vanco Iv Per Pharmacy) PER PHARMACY DOSING NOTE XX ; Start 04/25 at 18:30 Acetaminophen (Tylenol Liquid) 650 mg Q4 PRN GTB PAIN AND OR ELEVATED TEMP Last administered on 04/27/17 08:46; Admin Dose 650 MG; Start 04/25/17 at 23:00 Eye Lubricant (Akwa Oint) 1 applic QID BOTH EYES Last administered on 08:45; Admin Dose 1 APPLIC; Start 04/26/17 at 09:00 Bromocriptine Mesylate (Parlodel) 30 mg DAILY GTB Last administered on 09:40; Admin Dose 30 MG; Start 04/26/17 at 09:00 Chlorhexidine Gluconate (Peridex) 15 ml BID MM Last administered on 04/27/17 08:46; Admin Dose 15 ML; Start 04/26/17 at 09:00 Desmopressin Acetate (Ddavp) 0.05 mg DAILY GTB Last administered on 04/27/17 08:46; Admin Dose 0.05 MG; Start 04/26/17 at 09:00 Enoxaparin Sodium (Lovenox) 30 mg DAILY SC ; Start 04/26/17 at 09:00 Ferrous Sulfate (Feosol Liquid Cup) 300 mg BID GTB Last administered on 08:46; Admin Dose 300 MG; Start 04/26/17 at 09:00 Hydrocortisone (Cortef) 20 mg DAILY GTB Last administered on 04/27/17 08:46; Admin Dose 20 MG; Start 04/26/17 at 09:00 Ondansetron HCl (Zofran Tab) 4 mg Q8 PRN GTB NAUSEA AND/OR VOMITING; Start at 23:00 Lactobacillus Acidophilus (Florajen3 Capsule) 1 each DAILY PEG Last administered on 04/27/17 08:46; Admin Dose 1 EACH; Start 04/26/17 at 09:00 Ergocalciferol (Drisdol) 50,000 unit Q7D GTB ; Start 05/02/17 at 09:00 Ascorbic Acid 250 mg 250 mg BID GTB Last administered on 04/27/17 08:46; Admin Dose 250 MG; Start 04/26/17 at 09:00 Vancomycin HCl (Vancocin) 100 ml @ 100 mls/hr Q8H IVPB Last administered on 06:44; Admin Dose 100 MLS/HR; Start 04/26/17 at 12:00 Famotidine 20 mg 20 mg BID GTB Last administered on 04/27/17 08:46; Admin Dose 20 MG; Start 04/26/17 at 09:00 Phenylephrine HCl 40 mg/Dextrose 500 ml @ 75 mls/hr TITRATE IV ; Start at 08:30 Norepinephrine/ Dextrose (Levophed/D5W) 500 ml @ 1.87 mls/hr TITRATE IV Last administered on 04/26/17 14:46; Admin Dose 41.25 MLS/HR; Start 04/26/17 at 14: 30 Morphine Sulfate 2 mg 2 mg Q4H PRN IV PAIN Last administered on 04/26/17 23:07 ; Admin Dose 2 MG; Start 04/26/17 at 16:30 Potassium Chloride (KCl 20 MEQ/50 ML SW) 50 ml @ 25 mls/hr Q2H IVPB Last administered on 04/27/17 08:45; Admin Dose 25 MLS/HR; Start 04/27/17 at 06:30; Stop 04/27/17 at 10:29 Assessment/Plan Chief Complaint/Hosp Course Assessment 1. Disseminated coccidiomycosis with encephalopathy. 2. Vent dependent respiratory failure 3. Septic shock 4. Hypokalemia and hyponatremia likely free water deficit. 5. Anemia of chronic disease 6. Likely chronic from cytopenia Recommendations 1. Continue mechanical ventilation 2. Continue tube feeding as tolerated 3. Consider increasing free water 4. Replace potassium 5. DVT GI prophylaxis 6. Consider transfusion 1 unit packed red blood cells Disposition Continue ICU care critical care time 40 minutes. Problems: FRANCESCA HANSEN MD, [facility] Apr 27, 2017 10:20
--- NOTE | 2017-04-27 11:04 | CONS ---
Date/Time of Note Date/Time of Note DATE: 04/27/17 TIME: 11:01 Assessment/Plan Assessment/Plan Chief Complaint/Hosp Course assessment/impression - septic shock due to pneumonia and UTI - UTI due to ESBL+E. coli - b/l pneumonia - herpes labialis - h/o disseminated coccidioides mycosis infection, meningitis - s/p VPS placement - VDRF s/p tracheostomy - PEG dependet status - pancytopenia, due to septic shock on admission - thrombocytopenia - leukocytosis likely secondary to septic shock and steroid REVISED recommendations - pending results: cultures of blood, cocci CF, respiratory culture, legionella antigen - ordered posaconazole trough level today - requested sensitivity o Pt's E. coli to aztreonam today - start pip/tazo for E. coli (avoiding carbapenem initially due to his history of seizure in the past); if Pt's infection does not clear, will use carbapenem with close monitoring - continue empiric treatment: IV vancomycin, aztreonam (for double coverage because Pt's still hypotensive); will adjust antibiotics further based on the final culture results - continue posaconazole; Per Pt's family he was taking 300 mg three times daily. The dose was adjusted per "protocol" here at 400 mg twice daily. Pt's RN spoke with Dilshad Hickey. He will look into this protocol. If we do not have 300 mg dose, will ask Pt's family to bring his own supply. - start acyclovir for herpess labialis (04/27/2017-) management d/w Pt's RN, father the critical care time I took to care for this Pt today day was from 0820 to 0900. 1040 to 1050 Problems: Consultation Date/Type/Reason Admit Date/Time Apr 25, 2017 at 12:31 Initial Consult Date 04/25/17 Type of Consultation: ID Referring Provider: HELEN CASTELLANO MD Exam/Review of Systems Vital Signs Vitals Vital Signs Date Time Temp Pulse Resp B/P Pulse Ox O2 Delivery O2 Flow Rate FiO2 04/27/17 08:00 111 04/27/17 08:00 40 04/27/17 07:00 23 98/55 96 04/27/17 04:00 98.6 04/26/17 20:00 Mechanical Ventilator Intake and Output 04/26/17 04/26/17 04/27/17 15:00 23:00 07:00 Intake Total 1682.1850 ml 1606.5500 ml 1072.50 ml Output Total 1450 ml 1450 ml 2500 ml Balance 232.1850 ml 156.5500 ml -1427.50 ml Results Result Diagram: 04/27/17 0308 04/27/17 0445 Results 24 hrs Laboratory Tests Test 04/27/17 03:08 04/27/17 04:45 04/27/17 05:24 White Blood Count 12.8 #H Red Blood Count 2.57 L Hemoglobin 7.6 L Hematocrit 23.5 L Mean Corpuscular Volume 91.4 Mean Corpuscular Hemoglobin 29.6 Mean Corpuscular Hemoglobin Concent 32.3 Red Cell Distribution Width 17.8 H Platelet Count 82 L Mean Platelet Volume 10.5 H Neutrophils % 91.1 H Lymphocytes % 4.0 L Monocytes % 3.0 Eosinophils % 0.5 Basophils % 0.5 Nucleated Red Blood Cells % 0.0 Neutrophils # 11.7 H Lymphocytes # 0.5 L Monocytes # 0.4 Eosinophils # 0.1 Basophils # 0.1 Nucleated Red Blood Cells # 0.0 Sodium Level 150 H 153 H Potassium Level 2.3 *L 2.3 *L Chloride Level 117 H 122 H Carbon Dioxide Level 24 25 Anion Gap 11 8 Blood Urea Nitrogen 26 #H 26 H Creatinine 0.87 0.85 Glucose Level 262 #H 134 # Calcium Level 9.4 10.0 Magnesium Level 2.0 Total Bilirubin 0.0 L Direct Bilirubin 0.00 Indirect Bilirubin 0.0 Aspartate Amino Transf (AST/SGOT) 23 Alanine Aminotransferase (ALT/SGPT) 24 Alkaline Phosphatase 261 #H Total Protein 5.9 L Albumin 2.8 L Globulin 3.10 Albumin/Globulin Ratio 0.90 Vancomycin Level Trough 17.0 Lab Scanned Report BLOOD TRANSFUSION Medications Medications Current Medications Potassium Chloride/Dextrose (KCl/D5W) 1,005 ml @ 100 mls/hr Q10H3M IV Last administered on 04/27/17 00:39; Admin Dose 100 MLS/HR; Start 04/25/17 at 13:30 Posaconazole 400 mg 400 mg BID PO Last administered on 04/27/17 08:46; Admin Dose 400 MG; Start 04/25/17 at 19:00 Aztreonam 50 ml @ 100 mls/hr Q12 IVPB Last administered on 04/27/17 08:47; Admin Dose 100 MLS/HR; Start 04/25/17 at 18:30 Cefepime HCl (Maxipime 2gm/50 ml (Pmx)) 50 ml @ 100 mls/hr Q12 IVPB Last administered on 04/27/17 10:05; Admin Dose 100 MLS/HR; Start 04/25/17 at 23:00 Vancomycin HCl (Vanco Iv Per Pharmacy) PER PHARMACY DOSING NOTE XX ; Start 04/25 at 18:30 Acetaminophen (Tylenol Liquid) 650 mg Q4 PRN GTB PAIN AND OR ELEVATED TEMP Last administered on 04/27/17 08:46; Admin Dose 650 MG; Start 04/25/17 at 23:00 Eye Lubricant (Akwa Oint) 1 applic QID BOTH EYES Last administered on 08:45; Admin Dose 1 APPLIC; Start 04/26/17 at 09:00 Bromocriptine Mesylate (Parlodel) 30 mg DAILY GTB Last administered on 09:40; Admin Dose 30 MG; Start 04/26/17 at 09:00 Chlorhexidine Gluconate (Peridex) 15 ml BID MM Last administered on 04/27/17 08:46; Admin Dose 15 ML; Start 04/26/17 at 09:00 Desmopressin Acetate (Ddavp) 0.05 mg DAILY GTB Last administered on 04/27/17 08:46; Admin Dose 0.05 MG; Start 04/26/17 at 09:00 Enoxaparin Sodium (Lovenox) 30 mg DAILY SC ; Start 04/26/17 at 09:00 Ferrous Sulfate (Feosol Liquid Cup) 300 mg BID GTB Last administered on 08:46; Admin Dose 300 MG; Start 04/26/17 at 09:00 Hydrocortisone (Cortef) 20 mg DAILY GTB Last administered on 04/27/17 08:46; Admin Dose 20 MG; Start 04/26/17 at 09:00 Ondansetron HCl (Zofran Tab) 4 mg Q8 PRN GTB NAUSEA AND/OR VOMITING; Start at 23:00 Lactobacillus Acidophilus (Florajen3 Capsule) 1 each DAILY PEG Last administered on 04/27/17 08:46; Admin Dose 1 EACH; Start 04/26/17 at 09:00 Ergocalciferol (Drisdol) 50,000 unit Q7D GTB ; Start 05/02/17 at 09:00 Ascorbic Acid (Vitamin C) 250 mg BID GTB Last administered on 04/27/17 08:46; Admin Dose 250 MG; Start 04/26/17 at 09:00 Famotidine 20 mg 20 mg BID GTB Last administered on 04/27/17 08:46; Admin Dose 20 MG; Start 04/26/17 at 09:00 Phenylephrine HCl 40 mg/Dextrose 500 ml @ 75 mls/hr TITRATE IV ; Start at 08:30 Norepinephrine/ Dextrose (Levophed/D5W) 500 ml @ 1.87 mls/hr TITRATE IV Last administered on 04/26/17 14:46; Admin Dose 41.25 MLS/HR; Start 04/26/17 at 14: 30 Morphine Sulfate 2 mg 2 mg Q4H PRN IV PAIN Last administered on 04/26/17 23:07 ; Admin Dose 2 MG; Start 04/26/17 at 16:30 Vancomycin HCl (Vancocin) 100 ml @ 100 mls/hr Q8H IVPB ; Start 04/27/17 at 14: 30 ELENI EVANS M.D. Apr 27, 2017 11:04
[2017-04-27] MEDS: BROMOCRIPTINE 2.5 MG TAB GTB SCH (11:48)
[2017-04-27] MEDS: ACYCLOVIR 400 MG TAB PEG SCH ×4 (11:49→21:15)
--- NOTE | 2017-04-27 12:52 | PN ---
Date/Time of Note Date/Time of Note DATE: 04/27/17 TIME: 12:47 Assessment/Plan VTE Prophylaxis VTE Prophylaxis Intervention: SCD's Lines/Catheters IV C[facility]ter Type (from [facility]): Saline Lock Urinary Cath still in place: Yes Reason Cath still needed: urinary retention Assessment/Plan Chief Complaint/Hosp Course Patient continues to spike fever, remains on Levophed for BP support. Assessment/Plan - Septic shock due to bilateral pneumonia. Continue broad-spectrum antibiotics follow-up on final sputum culture. 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 - Acute kidney injury, resolving. - Hypernatremia, continue IV with D%, Dr Sorensen is following in nephrology consultation. - Hypokalemia, start k protocol. - Pancytopenia most likely secondary to sepsis - Dysphagia with PEG. Resume tube G-tube feeding - VDRF with tracheostomy - Hydrocephalus, status post OPERATIONS PROJECT MANAGER shunt. Further recommendations based on clinical course. Plan of care discussed with Dr. Dozier Problems: Exam/Review of Systems Vital Signs Vitals Vital Signs Date Time Temp Pulse Resp B/P Pulse Ox O2 Delivery O2 Flow Rate FiO2 04/27/17 12:15 90 23 89/54 98 04/27/17 12:00 98.9 04/27/17 11:45 Mechanical Ventilator Trach Collar 04/27/17 11:15 40 Intake and Output 04/26/17 04/26/17 04/27/17 15:00 23:00 07:00 Intake Total 1682.1850 ml 1606.5500 ml 1072.50 ml Output Total 1450 ml 1450 ml 2500 ml Balance 232.1850 ml 156.5500 ml -1427.50 ml Exam Constitutional: non-verbal Neck: other (Tracheostomy), supple Respiratory: diminished breath sounds Cardiovascular: nl pulses Gastrointestinal: non-tender, other (G-tube), soft Extremities: normal pulses Neurological: lethargic Results Result Diagram: 04/27/17 0308 04/27/17 0445 Results 24 hrs Laboratory Tests Test 04/27/17 03:08 04/27/17 04:45 04/27/17 05:24 White Blood Count 12.8 #H Red Blood Count 2.57 L Hemoglobin 7.6 L Hematocrit 23.5 L Mean Corpuscular Volume 91.4 Mean Corpuscular Hemoglobin 29.6 Mean Corpuscular Hemoglobin Concent 32.3 Red Cell Distribution Width 17.8 H Platelet Count 82 L Mean Platelet Volume 10.5 H Neutrophils % 91.1 H Lymphocytes % 4.0 L Monocytes % 3.0 Eosinophils % 0.5 Basophils % 0.5 Nucleated Red Blood Cells % 0.0 Neutrophils # 11.7 H Lymphocytes # 0.5 L Monocytes # 0.4 Eosinophils # 0.1 Basophils # 0.1 Nucleated Red Blood Cells # 0.0 Sodium Level 150 H 153 H Potassium Level 2.3 *L 2.3 *L Chloride Level 117 H 122 H Carbon Dioxide Level 24 25 Anion Gap 11 8 Blood Urea Nitrogen 26 #H 26 H Creatinine 0.87 0.85 Glucose Level 262 #H 134 # Calcium Level 9.4 10.0 Magnesium Level 2.0 Total Bilirubin 0.0 L Direct Bilirubin 0.00 Indirect Bilirubin 0.0 Aspartate Amino Transf (AST/SGOT) 23 Alanine Aminotransferase (ALT/SGPT) 24 Alkaline Phosphatase 261 #H Total Protein 5.9 L Albumin 2.8 L Globulin 3.10 Albumin/Globulin Ratio 0.90 Vancomycin Level Trough 17.0 Lab Scanned Report BLOOD TRANSFUSION Medications Medications Current Medications Potassium Chloride/Dextrose (KCl/D5W) 1,005 ml @ 100 mls/hr Q10H3M IV Last administered on 04/27/17 00:39; Admin Dose 100 MLS/HR; Start 04/25/17 at 13:30 Posaconazole 400 mg 400 mg BID PO Last administered on 04/27/17 08:46; Admin Dose 400 MG; Start 04/25/17 at 19:00 Aztreonam (Azactam 1gm/NS (Pmx)) 50 ml @ 100 mls/hr Q12 IVPB Last administered on 04/27/17 08:47; Admin Dose 100 MLS/HR; Start 04/25/17 at 18:30 Vancomycin HCl (Vanco Iv Per Pharmacy) PER PHARMACY DOSING NOTE XX ; Start 04/25 at 18:30 Acetaminophen (Tylenol Liquid) 650 mg Q4 PRN GTB PAIN AND OR ELEVATED TEMP Last administered on 04/27/17 08:46; Admin Dose 650 MG; Start 04/25/17 at 23:00 Eye Lubricant (Akwa Oint) 1 applic QID BOTH EYES Last administered on 12:01; Admin Dose 1 APPLIC; Start 04/26/17 at 09:00 Bromocriptine Mesylate (Parlodel) 30 mg DAILY GTB Last administered on 11:48; Admin Dose 30 MG; Start 04/26/17 at 09:00 Chlorhexidine Gluconate (Peridex) 15 ml BID MM Last administered on 04/27/17 08:46; Admin Dose 15 ML; Start 04/26/17 at 09:00 Desmopressin Acetate (Ddavp) 0.05 mg DAILY GTB Last administered on 04/27/17 08:46; Admin Dose 0.05 MG; Start 04/26/17 at 09:00 Enoxaparin Sodium (Lovenox) 30 mg DAILY SC ; Start 04/26/17 at 09:00 Ferrous Sulfate (Feosol Liquid Cup) 300 mg BID GTB Last administered on 08:46; Admin Dose 300 MG; Start 04/26/17 at 09:00 Hydrocortisone (Cortef) 20 mg DAILY GTB Last administered on 04/27/17 08:46; Admin Dose 20 MG; Start 04/26/17 at 09:00 Ondansetron HCl (Zofran Tab) 4 mg Q8 PRN GTB NAUSEA AND/OR VOMITING; Start at 23:00 Lactobacillus Acidophilus (Florajen3 Capsule) 1 each DAILY PEG Last administered on 04/27/17 08:46; Admin Dose 1 EACH; Start 04/26/17 at 09:00 Ergocalciferol (Drisdol) 50,000 unit Q7D GTB ; Start 05/02/17 at 09:00 Ascorbic Acid (Vitamin C) 250 mg BID GTB Last administered on 04/27/17 08:46; Admin Dose 250 MG; Start 04/26/17 at 09:00 Famotidine 20 mg 20 mg BID GTB Last administered on 04/27/17 08:46; Admin Dose 20 MG; Start 04/26/17 at 09:00 Phenylephrine HCl 40 mg/Dextrose 500 ml @ 75 mls/hr TITRATE IV ; Start at 08:30 Norepinephrine/ Dextrose (Levophed/D5W) 500 ml @ 1.87 mls/hr TITRATE IV Last administered on 04/26/17 14:46; Admin Dose 41.25 MLS/HR; Start 04/26/17 at 14: 30 Morphine Sulfate 2 mg 2 mg Q4H PRN IV PAIN Last administered on 04/26/17 23:07 ; Admin Dose 2 MG; Start 04/26/17 at 16:30 Vancomycin HCl 100 ml @ 100 mls/hr Q8H IVPB ; Start 04/27/17 at 14:30 Piperacillin Sod/ Tazobactam Sod (Zosyn 3.375gm/ 100 ml (Pmx)) 100 ml @ 200 mls /hr Q8 IVPB ; Start 04/27/17 at 14:00 MANDIE DAVE Apr 27, 2017 12:52
[2017-04-27] MEDS: PIPER-TAZO 3.375 GM IV (PMX) 100 ML IVPB SCH ×2 (13:23→21:14)
[2017-04-27 13:46] LABS: CALCIUM 9.8 mg/dl (8.4-10.2); CREATININE 0.89 mg/dl (0.61-1.24)
[2017-04-27 13:55] LABS: POTASSIUM 2.6 mmol/L (3.5-5.1)
[2017-04-27] MEDS ORDERED: MAGNESIUM SULFATE 1 GM/D5W 100 ML IVPB ONE (14:30)
[2017-04-27] MEDS ORDERED: POTASSIUM CHLORIDE 20 MEQ in SOD CHLORIDE 0.9% 100 ML IVPB ONE (15:30)
[2017-04-27] MEDS ORDERED: POTASSIUM CHLORIDE 50 ML IVPB ONE (16:30)
[2017-04-27] MEDS: POTASSIUM CHLORIDE IV SCH (17:03)
[2017-04-27] MEDS: DEXTROSE 5% IV SCH (17:03)
--- NOTE | 2017-04-27 17:07 | CONS ---
Date/Time of Note Date/Time of Note DATE: 04/27/17 TIME: 17:01 Assessment/Plan Assessment/Plan Additional Assessment/Plan 1. Non Oliguric Acute kidney injury due to septic shock 2. Hypernaremia 3. Lactic acidosis due to septic shock 4. Acute on chronic resp failure s/p Tracheostomy 5. H/o Fungal meningitis, currently comatose 6. H/O Right sided CORRECTIONAL GUARD shunt 7. H/o G tube placement 8. 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 Polyuria Plan: Na 156, K 2.3- s/p KCL 40mEQ IV x 1- follow up K is 2.6- will give additional KCl 20mEQ IV x 1 increase IVF KCl to 20meQ KCL in D5W , Cr improved to normal pt is in polyuria, yesterday Urine out put 5 liter, today 2.5 Since 6 am today, will increase his DDAVP to 0.1mg PO BID Bp stable will follow up Consultation Date/Type/Reason Admit Date/Time Apr 25, 2017 at 12:31 Initial Consult Date 04/25/17 Type of Consultation: NEPHROLOGY Referring Provider: HELEN CASTELLANO MD 24 HR Interval Summary Free Text/Dictation K has been low, Cr stbale Exam/Review of Systems Vital Signs Vitals Vital Signs Date Time Temp Pulse Resp B/P Pulse Ox O2 Delivery O2 Flow Rate FiO2 04/27/17 16:45 77 33 96/64 97 04/27/17 16:00 Mechanical Ventilator Trach Collar 04/27/17 13:28 30 04/27/17 12:00 98.9 Intake and Output 04/26/17 04/26/17 04/27/17 15:00 23:00 07:00 Intake Total 1682.1850 ml 1606.5500 ml 1072.50 ml Output Total 1450 ml 1450 ml 2500 ml Balance 232.1850 ml 156.5500 ml -1427.50 ml Exam Constitutional: non-verbal ENMT: other ( tracheostomy ) Respiratory: congested cough, crackles/rales, diminished breath sounds Cardiovascular: other (tachycardia ), regular rate and rhythm Gastrointestinal: non-tender, other, soft Neurological: lethargic, other (Uncooperative for exam ) Skin: nl turgor Results Result Diagram: 04/27/17 0308 04/27/17 1250 Results 24 hrs Laboratory Tests Test 04/27/17 03:08 04/27/17 04:45 04/27/17 05:24 04/27/17 12:50 White Blood Count 12.8 #H Red Blood Count 2.57 L Hemoglobin 7.6 L Hematocrit 23.5 L Mean Corpuscular Volume 91.4 Mean Corpuscular Hemoglobin 29.6 Mean Corpuscular Hemoglobin Concent 32.3 Red Cell Distribution Width 17.8 H Platelet Count 82 L Mean Platelet Volume 10.5 H Neutrophils % 91.1 H Lymphocytes % 4.0 L Monocytes % 3.0 Eosinophils % 0.5 Basophils % 0.5 Nucleated Red Blood Cells % 0.0 Neutrophils # 11.7 H Lymphocytes # 0.5 L Monocytes # 0.4 Eosinophils # 0.1 Basophils # 0.1 Nucleated Red Blood Cells # 0.0 Sodium Level 150 H 153 H 156 H Potassium Level 2.3 *L 2.3 *L 2.6 *L Chloride Level 117 H 122 H 125 H Carbon Dioxide Level 24 25 23 Anion Gap 11 8 11 Blood Urea Nitrogen 26 #H 26 H 23 H Creatinine 0.87 0.85 0.89 Glucose Level 262 #H 134 # 146 Calcium Level 9.4 10.0 9.8 Magnesium Level 2.0 Total Bilirubin 0.0 L Direct Bilirubin 0.00 Indirect Bilirubin 0.0 Aspartate Amino Transf (AST/SGOT) 23 Alanine Aminotransferase (ALT/SGPT) 24 Alkaline Phosphatase 261 #H Total Protein 5.9 L Albumin 2.8 L Globulin 3.10 Albumin/Globulin Ratio 0.90 Vancomycin Level Trough 17.0 Lab Scanned Report BLOOD TRANSFUSION Medications Medications Current Medications Posaconazole 400 mg 400 mg BID PO Last administered on 04/27/17 08:46; Admin Dose 400 MG; Start 04/25/17 at 19:00 Aztreonam (Azactam 1gm/NS (Pmx)) 50 ml @ 100 mls/hr Q12 IVPB Last administered on 04/27/17 08:47; Admin Dose 100 MLS/HR; Start 04/25/17 at 18:30 Vancomycin HCl (Vanco Iv Per Pharmacy) PER PHARMACY DOSING NOTE XX ; Start 04/25 at 18:30 Acetaminophen (Tylenol Liquid) 650 mg Q4 PRN GTB PAIN AND OR ELEVATED TEMP Last administered on 04/27/17 08:46; Admin Dose 650 MG; Start 04/25/17 at 23:00 Eye Lubricant (Akwa Oint) 1 applic QID BOTH EYES Last administered on 12:01; Admin Dose 1 APPLIC; Start 04/26/17 at 09:00 Bromocriptine Mesylate (Parlodel) 30 mg DAILY GTB Last administered on 11:48; Admin Dose 30 MG; Start 04/26/17 at 09:00 Chlorhexidine Gluconate (Peridex) 15 ml BID MM Last administered on 04/27/17 08:46; Admin Dose 15 ML; Start 04/26/17 at 09:00 Desmopressin Acetate (Ddavp) 0.05 mg DAILY GTB Last administered on 04/27/17 08:46; Admin Dose 0.05 MG; Start 04/26/17 at 09:00 Enoxaparin Sodium (Lovenox) 30 mg DAILY SC ; Start 04/26/17 at 09:00 Ferrous Sulfate (Feosol Liquid Cup) 300 mg BID GTB Last administered on 08:46; Admin Dose 300 MG; Start 04/26/17 at 09:00 Hydrocortisone (Cortef) 20 mg DAILY GTB Last administered on 04/27/17 08:46; Admin Dose 20 MG; Start 04/26/17 at 09:00 Ondansetron HCl (Zofran Tab) 4 mg Q8 PRN GTB NAUSEA AND/OR VOMITING; Start at 23:00 Lactobacillus Acidophilus (Florajen3 Capsule) 1 each DAILY PEG Last administered on 04/27/17 08:46; Admin Dose 1 EACH; Start 04/26/17 at 09:00 Ergocalciferol (Drisdol) 50,000 unit Q7D GTB ; Start 05/02/17 at 09:00 Ascorbic Acid (Vitamin C) 250 mg BID GTB Last administered on 04/27/17 08:46; Admin Dose 250 MG; Start 04/26/17 at 09:00 Famotidine 20 mg 20 mg BID GTB Last administered on 04/27/17 08:46; Admin Dose 20 MG; Start 04/26/17 at 09:00 Phenylephrine HCl 40 mg/Dextrose 500 ml @ 75 mls/hr TITRATE IV ; Start at 08:30 Norepinephrine/ Dextrose (Levophed/D5W) 500 ml @ 1.87 mls/hr TITRATE IV Last administered on 04/26/17 14:46; Admin Dose 41.25 MLS/HR; Start 04/26/17 at 14: 30 Morphine Sulfate 2 mg 2 mg Q4H PRN IV PAIN Last administered on 04/26/17 23:07 ; Admin Dose 2 MG; Start 04/26/17 at 16:30 Vancomycin HCl 100 ml @ 100 mls/hr Q8H IVPB Last administered on 04/27/17 15: 07; Admin Dose 100 MLS/HR; Start 04/27/17 at 14:30 Piperacillin Sod/ Tazobactam Sod 100 ml @ 200 mls/hr Q8 IVPB Last administered on 04/27/17 13:23; Admin Dose 200 MLS/HR; Start 04/27/17 at 14:00 Potassium Chloride 20 meq/ Dextrose 1,000 ml @ 100 mls/hr Q10H IV ; Start 04/27 at 16:00 Potassium Chloride (KCl 20 MEQ/50 ML SW) 50 ml @ 25 mls/hr ONCE ONCE IVPB ; Start 04/27/17 at 16:30; Stop 04/27/17 at 18:29 FARHAT RUBIO MD Apr 27, 2017 17:07
[2017-04-27 21:38] LABS: CALCIUM 9.9 mg/dl (8.4-10.2); CREATININE 0.86 mg/dl (0.61-1.24)
[2017-04-27 21:41] LABS: POTASSIUM 2.7 mmol/L (3.5-5.1)
[2017-04-27] MEDS: POTASSIUM CHLORIDE 50 ML IVPB PRN (22:43)
[2017-04-28] VITALS (107 sets, daily range): BP systolic 82–123; BP diastolic 45–86; PULSE 46–95; RESP 17–45
[2017-04-28] MEDS: POSACONAZOLE PO SCH ×3 (00:18→21:02)
[2017-04-28] MEDS: POTASSIUM CHLORIDE 50 ML IVPB PRN ×7 (00:19→17:37)
[2017-04-28] MEDS: POTASSIUM CHLORIDE IV SCH ×3 (04:00→16:31)
[2017-04-28] MEDS: DEXTROSE 5% IV SCH ×3 (04:00→16:31)
[2017-04-28 05:37] LABS: ABNORMAL IP MESSAGE 1; BASOPHILS % 0.2 % (0.0-2.0); EOSINOPHILS # 0.1 10^3/ul (0.0-0.5); EOSINOPHILS % 1.4 % (0.0-7.0); HEMATOCRIT 24.8 % (42.0-52.0); HEMOGLOBIN 7.9 g/dl (14.0-18.0); LYMPHOCYTES # 0.5 10^3/ul (0.8-2.9); LYMPHOCYTES % 4.7 % (15.0-51.0); MEAN CORPUSCULAR HEMOGLOBIN 28.6 pg (29.0-33.0); MEAN CORPUSCULAR HGB CONC 31.9 g/dl (32.0-37.0); MEAN CORPUSCULAR VOLUME 89.9 fl (82.0-101.0); MEAN PLATELET VOLUME 10.4 fl (7.4-10.4); MONOCYTE # 0.3 10^3/ul (0.3-0.9); MONOCYTES % 3.1 % (0.0-11.0); NEUTROPHIL # 8.6 10^3/ul (1.6-7.5); PLATELET COUNT 49 10^3/UL (140-415); POSITIVE DIFF @See below; RED BLOOD COUNT 2.76 10^6/ul (4.70-6.10); RED CELL DISTRIBUTION WIDTH 17.3 % (11.5-14.5); WHITE BLOOD COUNT 9.5 10^3/ul (4.8-10.8)
[2017-04-28 05:49] LABS: CALCIUM 9.6 mg/dl (8.4-10.2); CREATININE 0.77 mg/dl (0.61-1.24); MAGNESIUM 2.1 mg/dl (1.7-2.5); PHOSPHORUS 2.6 mg/dl (2.5-4.9)
[2017-04-28] MEDS: PIPER-TAZO 3.375 GM IV (PMX) 100 ML IVPB SCH ×3 (06:00→21:12)
[2017-04-28] MEDS: VANCOMYCIN 500MG/NS (PMX) 100 ML IVPB SCH ×3 (06:01→23:05)
[2017-04-28 06:09] LABS: POTASSIUM 2.9 mmol/L (3.5-5.1)
[2017-04-28] MEDS ORDERED: POTASSIUM CHLORIDE (SR) 20 MEQ TAB PO ONE (06:33)
--- NOTE | 2017-04-28 08:53 | RADRPT ---
PROCEDURE: XR Chest. CLINICAL INDICATION: Shortness of breath. TECHNIQUE: Single frontal view. COMPARISON: 04/25/2017. FINDINGS: The tracheostomy tube and right sided DIRECTOR UTILIZATION MANAGEMENT shunt catheter are once again noted. The right arm PICC savanna e is in satisfactory position. Extensive bilateral pulmonary air space disease in the mid and lower lung zones is slightly improved. The heart size is normal. There is no pleural effusion. There is no pneumothorax. IMPRESSION: 1. Slightly improved appearance of the lungs. 2. No other change from 04/25/2017. RPTAT: QQ .Garfield Sandhu MD, MD Date Time Electronically viewed and signed by .Garfield Sandhu MD, MD on 04/28/2017 08:52 .R/
[2017-04-28] MEDS: morphine 2 MG INJ IV PRN (08:59)
[2017-04-28] MEDS: ENOXAPARIN 30 MG/0.3 ML SYG SC SCH (09:00)
--- NOTE | 2017-04-28 09:07 | CONS ---
Date/Time of Note Date/Time of Note DATE: 04/28/17 TIME: 09:04 Assessment/Plan Assessment/Plan Chief Complaint/Hosp Course assessment/impression - septic shock due to pneumonia and UTI - UTI due to ESBL+E. coli - b/l pneumonia due to Gram negative bacteria - herpes labialis - h/o disseminated coccidioides mycosis infection, meningitis - s/p VPS placement - VDRF s/p tracheostomy - PEG dependet status - pancytopenia, due to septic shock on admission - thrombocytopenia - leukocytosis likely secondary to septic shock and steroid recommendations - pending results: cocci CF, respiratory culture, legionella antigen, posaconazole trough level 04/27/2017, sensitivity o Pt'sESBL+E. coli in his urine culture to aztreonam - continue pip/tazo (04/27/2017-) for ESBL+E. coli (avoiding carbapenem initially due to his history of seizure in the past); if Pt's infection does not clear, will use carbapenem with close monitoring - continue aztreonam for double coverage while waiting for the final respiratory culture result - continue empiric IV vancomycin until all cultures are final - continue posaconazole; Per Pt's family he was taking 300 mg three times daily. The dose was adjusted per "protocol" here at 400 mg twice daily. Pt's RN spoke with Dilshad Hickey on 04/27/2017. Will review the result of posaconazole trough level from 04/27/2017 - continue acyclovir for herpess labialis (04/27/2017-) management d/w Pt's RN the critical care time I took to care for this Pt today day was 0830 to 0900 Problems: Consultation Date/Type/Reason Admit Date/Time Apr 25, 2017 at 12:31 Initial Consult Date 04/25/17 Type of Consultation: ID Referring Provider: HELEN CASTELLANO MD 24 HR Interval Summary Subjective hx not possible: pt non-verbal, pt critical, pt critical status Exam/Review of Systems Vital Signs Vitals Vital Signs Date Time Temp Pulse Resp B/P Pulse Ox O2 Delivery O2 Flow Rate FiO2 04/28/17 07:56 74 32 100 30 04/28/17 06:30 103/66 Mechanical Ventilator 04/28/17 04:00 97.8 Intake and Output 04/27/17 04/27/17 04/28/17 15:00 23:00 07:00 Intake Total 1657.8375 ml 2362.81 ml 1423.11 ml Output Total 1725 ml 1280 ml 610 ml Balance -67.1625 ml 1082.81 ml 813.11 ml Exam Constitutional: frail, non-verbal Psych: confusion Head: normocephalic, other (s/p VPS placement) Eyes: nl conjunctiva, nl lids ENMT: nl external ears & nose, nl nasal mucosa & septum, other (crusts on the lower lip) Neck: other (trach) Respiratory: crackles/rales Cardiovascular: nl pulses, regular rate and rhythm Gastrointestinal: non-tender, other (PEG), soft Genitourinary - Male: other (FC) Musculoskeletal: nl extremities to inspection Extremities: No edema Neurological: confused, lethargic Skin: nl turgor, other (stage II sacral decub) Results Result Diagram: 04/28/17 0500 04/28/17 0500 Results 24 hrs Laboratory Tests Test 04/27/17 12:50 04/27/17 20:59 04/28/17 05:00 04/28/17 05:18 Sodium Level 156 H 157 H 154 H Potassium Level 2.6 *L 2.7 *L 2.9 *L Chloride Level 125 H 124 H 124 H Carbon Dioxide Level 23 24 24 Anion Gap 11 12 9 Blood Urea Nitrogen 23 H 24 H 21 H Creatinine 0.89 0.86 0.77 Glucose Level 146 140 140 Calcium Level 9.8 9.9 9.6 White Blood Count 9.5 # Red Blood Count 2.76 L Hemoglobin 7.9 L Hematocrit 24.8 L Mean Corpuscular Volume 89.9 Mean Corpuscular Hemoglobin 28.6 L Mean Corpuscular Hemoglobin Concent 31.9 L Red Cell Distribution Width 17.3 H Platelet Count 49 #L Mean Platelet Volume 10.4 Neutrophils % 90.0 H Lymphocytes % 4.7 L Monocytes % 3.1 Eosinophils % 1.4 Basophils % 0.2 Nucleated Red Blood Cells % 0.0 Neutrophils # 8.6 H Lymphocytes # 0.5 L Monocytes # 0.3 Eosinophils # 0.1 Basophils # 0.0 Nucleated Red Blood Cells # 0.0 Phosphorus Level 2.6 Magnesium Level 2.1 Lab Scanned Report BLOOD TRANSFUSION Test 04/28/17 07:22 Lab Scanned Report REFERENCE LAB Medications Medications Current Medications Posaconazole 400 mg 400 mg BID PO Last administered on 04/28/17 00:18; Admin Dose 400 MG; Start 04/25/17 at 19:00 Aztreonam (Azactam 1gm/NS (Pmx)) 50 ml @ 100 mls/hr Q12 IVPB Last administered on 04/27/17 21:15; Admin Dose 100 MLS/HR; Start 04/25/17 at 18:30 Vancomycin HCl (Vanco Iv Per Pharmacy) PER PHARMACY DOSING NOTE XX ; Start 04/25 at 18:30 Acetaminophen (Tylenol Liquid) 650 mg Q4 PRN GTB PAIN AND OR ELEVATED TEMP Last administered on 04/27/17 08:46; Admin Dose 650 MG; Start 04/25/17 at 23:00 Eye Lubricant (Akwa Oint) 1 applic QID BOTH EYES Last administered on 20:26; Admin Dose 1 APPLIC; Start 04/26/17 at 09:00 Bromocriptine Mesylate (Parlodel) 30 mg DAILY GTB Last administered on 11:48; Admin Dose 30 MG; Start 04/26/17 at 09:00 Chlorhexidine Gluconate (Peridex) 15 ml BID MM Last administered on 04/27/17 21:14; Admin Dose 15 ML; Start 04/26/17 at 09:00 Enoxaparin Sodium (Lovenox) 30 mg DAILY SC ; Start 04/26/17 at 09:00 Ferrous Sulfate (Feosol Liquid Cup) 300 mg BID GTB Last administered on 21:14; Admin Dose 300 MG; Start 04/26/17 at 09:00 Hydrocortisone (Cortef) 20 mg DAILY GTB Last administered on 04/27/17 08:46; Admin Dose 20 MG; Start 04/26/17 at 09:00 Ondansetron HCl (Zofran Tab) 4 mg Q8 PRN GTB NAUSEA AND/OR VOMITING; Start at 23:00 Lactobacillus Acidophilus (Florajen3 Capsule) 1 each DAILY PEG Last administered on 04/27/17 08:46; Admin Dose 1 EACH; Start 04/26/17 at 09:00 Ergocalciferol (Drisdol) 50,000 unit Q7D GTB ; Start 05/02/17 at 09:00 Ascorbic Acid (Vitamin C) 250 mg BID GTB Last administered on 04/27/17 21:15; Admin Dose 250 MG; Start 04/26/17 at 09:00 Famotidine 20 mg 20 mg BID GTB Last administered on 04/27/17 21:15; Admin Dose 20 MG; Start 04/26/17 at 09:00 Phenylephrine HCl 40 mg/Dextrose 500 ml @ 75 mls/hr TITRATE IV ; Start at 08:30 Norepinephrine/ Dextrose (Levophed/D5W) 500 ml @ 1.87 mls/hr TITRATE IV Last administered on 04/27/17 22:50; Admin Dose 11.25 MLS/HR; Start 04/26/17 at 14: 30 Morphine Sulfate 2 mg 2 mg Q4H PRN IV PAIN Last administered on 04/28/17 08:59 ; Admin Dose 2 MG; Start 04/26/17 at 16:30 Vancomycin HCl 100 ml @ 100 mls/hr Q8H IVPB Last administered on 04/28/17 06: 01; Admin Dose 100 MLS/HR; Start 04/27/17 at 14:30 Piperacillin Sod/ Tazobactam Sod 100 ml @ 200 mls/hr Q8 IVPB Last administered on 04/28/17 06:00; Admin Dose 200 MLS/HR; Start 04/27/17 at 14:00 Potassium Chloride/Dextrose (KCl/D5W) 1,000 ml @ 100 mls/hr Q10H IV Last administered on 04/28/17 04:00; Admin Dose 100 MLS/HR; Start 04/27/17 at 16:00 Desmopressin Acetate (Ddavp) 0.1 mg BID GTB Last administered on 04/27/17 21: 15; Admin Dose 0.1 MG; Start 04/27/17 at 21:00 ELENI EVANS M.D. Apr 28, 2017 09:07
[2017-04-28] MEDS: DESMOPRESSIN 0.1 MG TAB GTB SCH ×2 (09:35→22:15)
[2017-04-28] MEDS: BROMOCRIPTINE 2.5 MG TAB GTB SCH (09:36)
[2017-04-28] MEDS: L ACIDOPHIL/B LACTIS/B LONGUM CAPSULE PEG SCH (09:36)
[2017-04-28] MEDS: FAMOTIDINE 20 MG TAB GTB SCH ×2 (09:36→21:02)
[2017-04-28] MEDS: HYDROCORTISONE 20 MG TAB GTB SCH (09:36)
[2017-04-28] MEDS: CHLORHEXIDINE GLUCONATE 15 ML UD CUP MM SCH ×2 (09:37→21:02)
[2017-04-28] MEDS: FERROUS SULFATE 60 MG/ML 5ML CUP GTB SCH ×2 (09:37→21:02)
[2017-04-28] MEDS: AZTREONAM 1 GM/NS (PMX) 50 ML IVPB SCH ×2 (09:37→21:02)
[2017-04-28] MEDS: ACYCLOVIR 400 MG TAB PEG SCH ×5 (09:43→21:06)
[2017-04-28] MEDS: ASCORBIC ACID 250 MG TAB GTB SCH ×2 (09:44→21:06)
--- NOTE | 2017-04-28 10:07 | CONS ---
Date/Time of Note Date/Time of Note DATE: 04/28/17 TIME: 10:05 Consult Date/Type/Reason Admit Date/Time Apr 25, 2017 at 12:31 Initial Consult Date 04/25/17 Type of Consultation: ID Ordering Provider: HELEN CASTELLANO MD Subjective No significant changes. Continues vasopressor support. Neurologically unchanged. Objective Vital Signs Date Time Temp Pulse Resp B/P Pulse Ox O2 Delivery O2 Flow Rate FiO2 04/28/17 09:01 46 04/28/17 07:56 32 100 30 04/28/17 06:30 103/66 Mechanical Ventilator 04/28/17 04:00 97.8 Intake and Output 04/27/17 04/27/17 04/28/17 15:00 23:00 07:00 Intake Total 1657.8375 ml 2362.81 ml 1423.11 ml Output Total 1725 ml 1280 ml 610 ml Balance -67.1625 ml 1082.81 ml 813.11 ml Exam PHYSICAL EXAMINATION GENERAL: Chronically appearing young gentleman on mechanical ventilation. VITAL SIGNS: see below. HEENT: Pupils equal, round, and reactive to light. Tracheostomy site clean and intact. CARDIAC: S1, S2, 1/6 systolic ejection murmur CHEST: Diminished air entry bilaterally. ABDOMEN: Mildly distended. Bowel sounds present no guarding or rebound EXTREMITIES: No cyanosis, clubbing edema +1 NEUROLOGIC: Generalized weakness, unable to assess. Results/Medications Result Diagram: 04/28/17 0500 04/28/17 0500 Results 24 hrs Chest x-ray Extensive bilateral infiltrates Laboratory Tests Test 04/27/17 12:50 04/27/17 20:59 04/28/17 05:00 04/28/17 05:18 Sodium Level 156 H 157 H 154 H Potassium Level 2.6 *L 2.7 *L 2.9 *L Chloride Level 125 H 124 H 124 H Carbon Dioxide Level 23 24 24 Anion Gap 11 12 9 Blood Urea Nitrogen 23 H 24 H 21 H Creatinine 0.89 0.86 0.77 Glucose Level 146 140 140 Calcium Level 9.8 9.9 9.6 White Blood Count 9.5 # Red Blood Count 2.76 L Hemoglobin 7.9 L Hematocrit 24.8 L Mean Corpuscular Volume 89.9 Mean Corpuscular Hemoglobin 28.6 L Mean Corpuscular Hemoglobin Concent 31.9 L Red Cell Distribution Width 17.3 H Platelet Count 49 #L Mean Platelet Volume 10.4 Neutrophils % 90.0 H Lymphocytes % 4.7 L Monocytes % 3.1 Eosinophils % 1.4 Basophils % 0.2 Nucleated Red Blood Cells % 0.0 Neutrophils # 8.6 H Lymphocytes # 0.5 L Monocytes # 0.3 Eosinophils # 0.1 Basophils # 0.0 Nucleated Red Blood Cells # 0.0 Phosphorus Level 2.6 Magnesium Level 2.1 Lab Scanned Report BLOOD TRANSFUSION Test 04/28/17 07:22 Lab Scanned Report REFERENCE LAB Medications Current Medications Posaconazole 400 mg 400 mg BID PO Last administered on 04/28/17 00:18; Admin Dose 400 MG; Start 04/25/17 at 19:00 Aztreonam (Azactam 1gm/NS (Pmx)) 50 ml @ 100 mls/hr Q12 IVPB Last administered on 04/28/17 09:37; Admin Dose 100 MLS/HR; Start 04/25/17 at 18:30 Vancomycin HCl (Vanco Iv Per Pharmacy) PER PHARMACY DOSING NOTE XX ; Start 04/25 at 18:30 Acetaminophen (Tylenol Liquid) 650 mg Q4 PRN GTB PAIN AND OR ELEVATED TEMP Last administered on 04/27/17 08:46; Admin Dose 650 MG; Start 04/25/17 at 23:00 Eye Lubricant (Akwa Oint) 1 applic QID BOTH EYES Last administered on 20:26; Admin Dose 1 APPLIC; Start 04/26/17 at 09:00 Bromocriptine Mesylate (Parlodel) 30 mg DAILY GTB Last administered on 09:36; Admin Dose 30 MG; Start 04/26/17 at 09:00 Chlorhexidine Gluconate (Peridex) 15 ml BID MM Last administered on 04/28/17 09:37; Admin Dose 15 ML; Start 04/26/17 at 09:00 Enoxaparin Sodium (Lovenox) 30 mg DAILY SC ; Start 04/26/17 at 09:00 Ferrous Sulfate (Feosol Liquid Cup) 300 mg BID GTB Last administered on 09:37; Admin Dose 300 MG; Start 04/26/17 at 09:00 Hydrocortisone (Cortef) 20 mg DAILY GTB Last administered on 04/28/17 09:36; Admin Dose 20 MG; Start 04/26/17 at 09:00 Ondansetron HCl (Zofran Tab) 4 mg Q8 PRN GTB NAUSEA AND/OR VOMITING; Start at 23:00 Lactobacillus Acidophilus (Florajen3 Capsule) 1 each DAILY PEG Last administered on 04/28/17 09:36; Admin Dose 1 EACH; Start 04/26/17 at 09:00 Ergocalciferol (Drisdol) 50,000 unit Q7D GTB ; Start 05/02/17 at 09:00 Ascorbic Acid (Vitamin C) 250 mg BID GTB Last administered on 04/28/17 09:44; Admin Dose 250 MG; Start 04/26/17 at 09:00 Famotidine 20 mg 20 mg BID GTB Last administered on 04/28/17 09:36; Admin Dose 20 MG; Start 04/26/17 at 09:00 Phenylephrine HCl 40 mg/Dextrose 500 ml @ 75 mls/hr TITRATE IV ; Start at 08:30 Norepinephrine/ Dextrose (Levophed/D5W) 500 ml @ 1.87 mls/hr TITRATE IV Last administered on 04/27/17 22:50; Admin Dose 11.25 MLS/HR; Start 04/26/17 at 14: 30 Morphine Sulfate 2 mg 2 mg Q4H PRN IV PAIN Last administered on 04/28/17 08:59 ; Admin Dose 2 MG; Start 04/26/17 at 16:30 Vancomycin HCl 100 ml @ 100 mls/hr Q8H IVPB Last administered on 04/28/17 06: 01; Admin Dose 100 MLS/HR; Start 04/27/17 at 14:30 Piperacillin Sod/ Tazobactam Sod 100 ml @ 200 mls/hr Q8 IVPB Last administered on 04/28/17 06:00; Admin Dose 200 MLS/HR; Start 04/27/17 at 14:00 Potassium Chloride/Dextrose (KCl/D5W) 1,000 ml @ 100 mls/hr Q10H IV Last administered on 04/28/17 04:00; Admin Dose 100 MLS/HR; Start 04/27/17 at 16:00 Desmopressin Acetate (Ddavp) 0.1 mg BID GTB Last administered on 04/28/17t 09: 35; Admin Dose 0.1 MG; Start 04/27/17 at 21:00 Assessment/Plan Chief Complaint/Hosp Course Assessment 1. Disseminated coccidiomycosis with encephalopathy. 2. Vent dependent respiratory failure 3. Septic shock 4. Hypokalemia and hyponatremia likely free water deficit. Diabetes insipidus. 5. Anemia of chronic disease 6. Likely chronic from cytopenia Recommendations 1. Continue mechanical ventilation 2. Continue tube feeding as tolerated 3. Consider increasing free water, renal recommendations 4. Replace potassium 5. DVT GI prophylaxis 6. Decrease vasopressors as tolerated Disposition Continue ICU care critical care time 40 minutes. Problems: FRANCESCA HANSEN MD, [facility] Apr 28, 2017 10:07
[2017-04-28] MEDS: OCULAR LUBRICANT 3.5 GM OPH OINT BOTH EYES SCH ×4 (11:18→21:01)
[2017-04-28] MEDS: ACETAMINOPHEN 650MG/20.3ML CUP GTB PRN (14:09)
[2017-04-28] MEDS ORDERED: SOD CHLORIDE 0.9% 250 ML IV* ONE (14:26)
[2017-04-28 14:47] LABS: CALCIUM 9.7 mg/dl (8.4-10.2); CREATININE 0.72 mg/dl (0.61-1.24); POTASSIUM 3.4 mmol/L (3.5-5.1)
--- NOTE | 2017-04-28 16:08 | PN ---
Date/Time of Note Date/Time of Note DATE: 04/28/17 TIME: 15:59 Assessment/Plan VTE Prophylaxis VTE Prophylaxis Intervention: SCD's Lines/Catheters IV C[facility]ter Type (from [email or web address] PICC Line Central line still needed: Yes Urinary Cath still in place: Yes Reason Cath still needed: urinary retention Assessment/Plan Chief Complaint/Hosp Course Remains critically ill, remains on Levophed gtt, with improved leukocytosis, continues on ventilatory support. Assessment/Plan - Septic shock due to bilateral pneumonia. Continue broad-spectrum antibiotics follow-up on final sputum culture. 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 - Acute kidney injury, resolving. - Hypernatremia, continue IV with D%, Dr Sorensen is following in nephrology consultation. - Hypokalemia, start k protocol. - Pancytopenia most likely secondary to sepsis - Dysphagia with PEG. Resume tube G-tube feeding - VDRF with tracheostomy - Hydrocephalus, status post ORIGINATION SPECIALIST shunt. Further recommendations based on clinical course. Plan of care discussed with Dr. Dozier Problems: Exam/Review of Systems Vital Signs Vitals Vital Signs Date Time Temp Pulse Resp B/P Pulse Ox O2 Delivery O2 Flow Rate FiO2 04/28/17 15:10 79 38 100 30 04/28/17 11:30 99/61 04/28/17 11:00 Mechanical Ventilator 04/28/17 08:00 98.2 Intake and Output 04/27/17 04/27/17 04/28/17 15:00 23:00 07:00 Intake Total 1657.8375 ml 2362.81 ml 1473.11 ml Output Total 1725 ml 1280 ml 810 ml Balance -67.1625 ml 1082.81 ml 663.11 ml Exam Constitutional: non-verbal Neck: other (Tracheostomy), supple Respiratory: diminished breath sounds Cardiovascular: nl pulses Gastrointestinal: non-tender, other (G-tube), soft Extremities: normal pulses Neurological: lethargic Results Result Diagram: 04/28/17 0500 04/28/17 1356 Results 24 hrs Laboratory Tests Test 04/27/17 20:59 04/28/17 05:00 04/28/17 05:18 04/28/17 07:22 Sodium Level 157 H 154 H Potassium Level 2.7 *L 2.9 *L Chloride Level 124 H 124 H Carbon Dioxide Level 24 24 Anion Gap 12 9 Blood Urea Nitrogen 24 H 21 H Creatinine 0.86 0.77 Glucose Level 140 140 Calcium Level 9.9 9.6 White Blood Count 9.5 # Red Blood Count 2.76 L Hemoglobin 7.9 L Hematocrit 24.8 L Mean Corpuscular Volume 89.9 Mean Corpuscular Hemoglobin 28.6 L Mean Corpuscular Hemoglobin Concent 31.9 L Red Cell Distribution Width 17.3 H Platelet Count 49 #L Mean Platelet Volume 10.4 Neutrophils % 90.0 H Lymphocytes % 4.7 L Monocytes % 3.1 Eosinophils % 1.4 Basophils % 0.2 Nucleated Red Blood Cells % 0.0 Neutrophils # 8.6 H Lymphocytes # 0.5 L Monocytes # 0.3 Eosinophils # 0.1 Basophils # 0.0 Nucleated Red Blood Cells # 0.0 Phosphorus Level 2.6 Magnesium Level 2.1 Lab Scanned Report BLOOD TRANSFUSION REFERENCE LAB Test 04/28/17 13:56 Sodium Level 146 H Potassium Level 3.4 L Chloride Level 120 H Carbon Dioxide Level 23 Anion Gap 6 L Blood Urea Nitrogen 18 Creatinine 0.72 Glucose Level 137 Calcium Level 9.7 Medications Medications Current Medications Posaconazole 400 mg 400 mg BID PO Last administered on 04/28/17 11:18; Admin Dose 400 MG; Start 04/25/17 at 19:00 Aztreonam (Azactam 1gm/NS (Pmx)) 50 ml @ 100 mls/hr Q12 IVPB Last administered on 04/28/17 09:37; Admin Dose 100 MLS/HR; Start 04/25/17 at 18:30 Vancomycin HCl (Vanco Iv Per Pharmacy) PER PHARMACY DOSING NOTE XX ; Start 04/25 at 18:30 Acetaminophen (Tylenol Liquid) 650 mg Q4 PRN GTB PAIN AND OR ELEVATED TEMP Last administered on 04/28/17 14:09; Admin Dose 650 MG; Start 04/25/17 at 23:00 Eye Lubricant (Akwa Oint) 1 applic QID BOTH EYES Last administered on 14:10; Admin Dose 1 APPLIC; Start 04/26/17 at 09:00 Bromocriptine Mesylate (Parlodel) 30 mg DAILY GTB Last administered on 09:36; Admin Dose 30 MG; Start 04/26/17 at 09:00 Chlorhexidine Gluconate (Peridex) 15 ml BID MM Last administered on 04/28/17 09:37; Admin Dose 15 ML; Start 04/26/17 at 09:00 Enoxaparin Sodium (Lovenox) 30 mg DAILY SC ; Start 04/26/17 at 09:00 Ferrous Sulfate (Feosol Liquid Cup) 300 mg BID GTB Last administered on 09:37; Admin Dose 300 MG; Start 04/26/17 at 09:00 Hydrocortisone (Cortef) 20 mg DAILY GTB Last administered on 04/28/17 09:36; Admin Dose 20 MG; Start 04/26/17 at 09:00 Ondansetron HCl (Zofran Tab) 4 mg Q8 PRN GTB NAUSEA AND/OR VOMITING; Start at 23:00 Lactobacillus Acidophilus (Florajen3 Capsule) 1 each DAILY PEG Last administered on 04/28/17 09:36; Admin Dose 1 EACH; Start 04/26/17 at 09:00 Ergocalciferol (Drisdol) 50,000 unit Q7D GTB ; Start 05/02/17 at 09:00 Ascorbic Acid (Vitamin C) 250 mg BID GTB Last administered on 04/28/17 09:44; Admin Dose 250 MG; Start 04/26/17 at 09:00 Famotidine 20 mg 20 mg BID GTB Last administered on 04/28/17 09:36; Admin Dose 20 MG; Start 04/26/17 at 09:00 Phenylephrine HCl 40 mg/Dextrose 500 ml @ 75 mls/hr TITRATE IV ; Start at 08:30 Norepinephrine/ Dextrose (Levophed/D5W) 500 ml @ 1.87 mls/hr TITRATE IV Last administered on 04/27/17 22:50; Admin Dose 11.25 MLS/HR; Start 04/26/17 at 14: 30 Morphine Sulfate 2 mg 2 mg Q4H PRN IV PAIN Last administered on 04/28/17 08:59 ; Admin Dose 2 MG; Start 04/26/17 at 16:30 Vancomycin HCl 100 ml @ 100 mls/hr Q8H IVPB Last administered on 04/28/17 14: 57; Admin Dose 100 MLS/HR; Start 04/27/17 at 14:30 Piperacillin Sod/ Tazobactam Sod (Zosyn 3.375gm/ 100 ml (Pmx)) 100 ml @ 200 mls /hr Q8 IVPB Last administered on 04/28/17 14:09; Admin Dose 200 MLS/HR; Start 04/27/17 at 14:00 Desmopressin Acetate (Ddavp) 0.1 mg BID GTB Last administered on 04/28/17 09: 35; Admin Dose 0.1 MG; Start 04/27/17 at 21:00 Miscellaneous Information VANCOMYCIN TROUGH AT 2130 ONCE ONCE XX ; Start 04/28/17 at 21:30; Stop 04/28/17 at 21:31 Potassium Chloride/Dextrose (KCl/D5W) 1,010 ml @ 100 mls/hr Q10H6M IV ; Start 04/28/17 at 14:26 MANDIE DAVE Apr 28, 2017 16:08
--- NOTE | 2017-04-28 19:04 | CONS ---
Date/Time of Note Date/Time of Note DATE: 04/28/17 TIME: 19:02 Assessment/Plan Assessment/Plan Additional Assessment/Plan 1. Non Oliguric Acute kidney injury due to septic shock 2. Hypernaremia 3. Lactic acidosis due to septic shock 4. Acute on chronic resp failure s/p Tracheostomy 5. H/o Fungal meningitis, currently comatose 6. H/O Right sided MANAGER MAIL shunt 7. 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 Polyuria Plan: continue D5W with KCL at 100 ml/hr, today K has been replaced per protocol Na improving, Cr improved to normal conitnue DDAVP to 0.1mg PO BID , U/o 3.9 yesterday, today K 2 l since AM Bp stable will follow up Consultation Date/Type/Reason Admit Date/Time Apr 25, 2017 at 12:31 Initial Consult Date 04/25/17 Type of Consultation: NEPHROLOGY Referring Provider: HELEN CASTELLANO MD Exam/Review of Systems Vital Signs Vitals Vital Signs Date Time Temp Pulse Resp B/P Pulse Ox O2 Delivery O2 Flow Rate FiO2 04/28/17 18:45 66 27 91/73 98 04/28/17 18:00 Mechanical Ventilator 04/28/17 17:23 30 04/28/17 16:00 98.2 Intake and Output 04/27/17 04/27/17 04/28/17 15:00 23:00 07:00 Intake Total 1657.8375 ml 2362.81 ml 1482.48 ml Output Total 1725 ml 1280 ml 810 ml Balance -67.1625 ml 1082.81 ml 672.48 ml Exam Constitutional: non-verbal ENMT: other ( tracheostomy ) Respiratory: congested cough, crackles/rales, diminished breath sounds Cardiovascular: other (tachycardia ), regular rate and rhythm Gastrointestinal: non-tender, other, soft Neurological: lethargic, other (Uncooperative for exam ) Skin: nl turgor Results Result Diagram: 04/28/17 0500 04/28/17 1356 Results 24 hrs Laboratory Tests Test 04/27/17 20:59 04/28/17 05:00 04/28/17 05:18 04/28/17 07:22 Sodium Level 157 H 154 H Potassium Level 2.7 *L 2.9 *L Chloride Level 124 H 124 H Carbon Dioxide Level 24 24 Anion Gap 12 9 Blood Urea Nitrogen 24 H 21 H Creatinine 0.86 0.77 Glucose Level 140 140 Calcium Level 9.9 9.6 White Blood Count 9.5 # Red Blood Count 2.76 L Hemoglobin 7.9 L Hematocrit 24.8 L Mean Corpuscular Volume 89.9 Mean Corpuscular Hemoglobin 28.6 L Mean Corpuscular Hemoglobin Concent 31.9 L Red Cell Distribution Width 17.3 H Platelet Count 49 #L Mean Platelet Volume 10.4 Neutrophils % 90.0 H Lymphocytes % 4.7 L Monocytes % 3.1 Eosinophils % 1.4 Basophils % 0.2 Nucleated Red Blood Cells % 0.0 Neutrophils # 8.6 H Lymphocytes # 0.5 L Monocytes # 0.3 Eosinophils # 0.1 Basophils # 0.0 Nucleated Red Blood Cells # 0.0 Phosphorus Level 2.6 Magnesium Level 2.1 Lab Scanned Report BLOOD TRANSFUSION REFERENCE LAB Test 04/28/17 13:56 04/28/17 14:55 Sodium Level 146 H Potassium Level 3.4 L Chloride Level 120 H Carbon Dioxide Level 23 Anion Gap 6 L Blood Urea Nitrogen 18 Creatinine 0.72 Glucose Level 137 Calcium Level 9.7 Lactic Acid Level 1.6 Medications Medications Current Medications Posaconazole 400 mg 400 mg BID PO Last administered on 04/28/17 11:18; Admin Dose 400 MG; Start 04/25/17 at 19:00 Aztreonam (Azactam 1gm/NS (Pmx)) 50 ml @ 100 mls/hr Q12 IVPB Last administered on 04/28/17 09:37; Admin Dose 100 MLS/HR; Start 04/25/17 at 18:30 Vancomycin HCl (Vanco Iv Per Pharmacy) PER PHARMACY DOSING NOTE XX ; Start 04/25 at 18:30 Acetaminophen (Tylenol Liquid) 650 mg Q4 PRN GTB PAIN AND OR ELEVATED TEMP Last administered on 04/28/17 14:09; Admin Dose 650 MG; Start 04/25/17 at 23:00 Eye Lubricant (Akwa Oint) 1 applic QID BOTH EYES Last administered on 17:38; Admin Dose 1 APPLIC; Start 04/26/17 at 09:00 Bromocriptine Mesylate (Parlodel) 30 mg DAILY GTB Last administered on 09:36; Admin Dose 30 MG; Start 04/26/17 at 09:00 Chlorhexidine Gluconate (Peridex) 15 ml BID MM Last administered on 04/28/17 09:37; Admin Dose 15 ML; Start 04/26/17 at 09:00 Enoxaparin Sodium (Lovenox) 30 mg DAILY SC ; Start 04/26/17 at 09:00 Ferrous Sulfate (Feosol Liquid Cup) 300 mg BID GTB Last administered on 09:37; Admin Dose 300 MG; Start 04/26/17 at 09:00 Hydrocortisone (Cortef) 20 mg DAILY GTB Last administered on 04/28/17 09:36; Admin Dose 20 MG; Start 04/26/17 at 09:00 Ondansetron HCl (Zofran Tab) 4 mg Q8 PRN GTB NAUSEA AND/OR VOMITING; Start at 23:00 Lactobacillus Acidophilus (Florajen3 Capsule) 1 each DAILY PEG Last administered on 04/28/17 09:36; Admin Dose 1 EACH; Start 04/26/17 at 09:00 Ergocalciferol (Drisdol) 50,000 unit Q7D GTB ; Start 05/02/17 at 09:00 Ascorbic Acid (Vitamin C) 250 mg BID GTB Last administered on 04/28/17 09:44; Admin Dose 250 MG; Start 04/26/17 at 09:00 Famotidine 20 mg 20 mg BID GTB Last administered on 04/28/17 09:36; Admin Dose 20 MG; Start 04/26/17 at 09:00 Phenylephrine HCl 40 mg/Dextrose 500 ml @ 75 mls/hr TITRATE IV ; Start at 08:30 Norepinephrine/ Dextrose (Levophed/D5W) 500 ml @ 1.87 mls/hr TITRATE IV Last administered on 04/27/17 22:50; Admin Dose 11.25 MLS/HR; Start 04/26/17 at 14: 30 Morphine Sulfate 2 mg 2 mg Q4H PRN IV PAIN Last administered on 04/28/17 08:59 ; Admin Dose 2 MG; Start 04/26/17 at 16:30 Vancomycin HCl 100 ml @ 100 mls/hr Q8H IVPB Last administered on 04/28/17 14: 57; Admin Dose 100 MLS/HR; Start 04/27/17 at 14:30 Piperacillin Sod/ Tazobactam Sod (Zosyn 3.375gm/ 100 ml (Pmx)) 100 ml @ 200 mls /hr Q8 IVPB Last administered on 04/28/17 14:09; Admin Dose 200 MLS/HR; Start 04/27/17 at 14:00 Desmopressin Acetate (Ddavp) 0.1 mg BID GTB Last administered on 04/28/17 09: 35; Admin Dose 0.1 MG; Start 04/27/17 at 21:00 Miscellaneous Information VANCOMYCIN TROUGH AT 2130 ONCE ONCE XX ; Start 04/28/17 at 21:30; Stop 04/28/17 at 21:31 Potassium Chloride/Dextrose (KCl/D5W) 1,010 ml @ 100 mls/hr Q10H6M IV Last administered on 04/28/17 16:31; Admin Dose 100 MLS/HR; Start 04/28/17 at 14:26 FARHAT RUBIO MD Apr 28, 2017 19:04
[2017-04-29] VITALS (98 sets, daily range): BP systolic 87–137; BP diastolic 53–107; PULSE 45–95; RESP 13–44
[2017-04-29] MEDS: POTASSIUM CHLORIDE IV SCH ×2 (02:01→10:30)
[2017-04-29] MEDS: DEXTROSE 5% IV SCH ×2 (02:01→10:30)
[2017-04-29] MEDS: PIPER-TAZO 3.375 GM IV (PMX) 100 ML IVPB SCH ×2 (05:25→14:25)
[2017-04-29 05:30] LABS: ABNORMAL IP MESSAGE 1; BASOPHILS % 0.2 % (0.0-2.0); EOSINOPHILS # 0.2 10^3/ul (0.0-0.5); EOSINOPHILS % 1.9 % (0.0-7.0); HEMATOCRIT 27.4 % (42.0-52.0); HEMOGLOBIN 9.1 g/dl (14.0-18.0); LYMPHOCYTES # 0.6 10^3/ul (0.8-2.9); LYMPHOCYTES % 5.8 % (15.0-51.0); MEAN CORPUSCULAR HGB CONC 33.2 g/dl (32.0-37.0); MEAN CORPUSCULAR VOLUME 90.4 fl (82.0-101.0); MONOCYTE # 0.5 10^3/ul (0.3-0.9); MONOCYTES % 4.4 % (0.0-11.0); NEUTROPHIL # 9.1 10^3/ul (1.6-7.5); NEUTROPHILS % 87.2 % (39.0-77.0); POSITIVE DIFF @See below; RED BLOOD COUNT 3.03 10^6/ul (4.70-6.10); RED CELL DISTRIBUTION WIDTH 16.7 % (11.5-14.5); WHITE BLOOD COUNT 10.4 10^3/ul (4.8-10.8)
[2017-04-29] MEDS: VANCOMYCIN 500MG/NS (PMX) 100 ML IVPB SCH ×2 (05:58→14:32)
[2017-04-29 06:00] LABS: CALCIUM 8.9 mg/dl (8.4-10.2); CREATININE 0.58 mg/dl (0.61-1.24)
[2017-04-29 06:15] LABS: PLATELET COUNT 45 10^3/UL (140-415)
[2017-04-29 06:33] LABS: POTASSIUM 2.7 mmol/L (3.5-5.1)
[2017-04-29] MEDS: POTASSIUM CHLORIDE 50 ML IVPB PRN ×6 (06:39→20:13)
[2017-04-29] MEDS: AZTREONAM 1 GM/NS (PMX) 50 ML IVPB SCH (07:52)
[2017-04-29] MEDS: BROMOCRIPTINE 2.5 MG TAB GTB SCH (07:52)
[2017-04-29] MEDS: ASCORBIC ACID 250 MG TAB GTB SCH ×2 (07:53→20:57)
[2017-04-29] MEDS: L ACIDOPHIL/B LACTIS/B LONGUM CAPSULE PEG SCH (07:53)
[2017-04-29] MEDS: ACYCLOVIR 400 MG TAB PEG SCH ×5 (07:53→20:58)
[2017-04-29] MEDS: FAMOTIDINE 20 MG TAB GTB SCH ×2 (07:53→20:57)
[2017-04-29] MEDS: DESMOPRESSIN 0.1 MG TAB GTB SCH ×2 (07:53→21:02)
[2017-04-29] MEDS: CHLORHEXIDINE GLUCONATE 15 ML UD CUP MM SCH ×2 (07:53→20:57)
[2017-04-29] MEDS: HYDROCORTISONE 20 MG TAB GTB SCH (07:53)
[2017-04-29] MEDS: FERROUS SULFATE 60 MG/ML 5ML CUP GTB SCH ×2 (07:53→20:57)
[2017-04-29] MEDS: POSACONAZOLE PO SCH ×2 (07:54→20:58)
[2017-04-29] MEDS: ENOXAPARIN 30 MG/0.3 ML SYG SC SCH (07:55)
--- NOTE | 2017-04-29 09:41 | CONS ---
Date/Time of Note Date/Time of Note DATE: 04/29/17 TIME: 09:40 Consult Date/Type/Reason Admit Date/Time Apr 25, 2017 at 12:31 Initial Consult Date 04/25/17 Type of Consultation: Pulmonary Ordering Provider: HELEN CASTELLANO MD Subjective Patient remains stable this morning on mechanical ventilation. Continues low- dose Levophed infusion. Objective Vital Signs Date Time Temp Pulse Resp B/P Pulse Ox O2 Delivery O2 Flow Rate FiO2 04/29/17 07:15 97.4 70 32 103/74 100 04/29/17 04:55 30 04/29/17 04:00 Mechanical Ventilator Intake and Output 04/28/17 04/28/17 04/29/17 15:00 23:00 07:00 Intake Total 674.96 ml 909.37 ml 1877 ml Output Total 1500 ml 1075 ml 535 ml Balance -825.04 ml -165.63 ml 1342 ml Exam PHYSICAL EXAMINATION GENERAL: Chronically appearing young gentleman on mechanical ventilation. VITAL SIGNS: see below. HEENT: Pupils equal, round, and reactive to light. Tracheostomy site clean and intact. CARDIAC: S1, S2, 1/6 systolic ejection murmur CHEST: Diminished air entry bilaterally. ABDOMEN: Mildly distended. Bowel sounds present no guarding or rebound EXTREMITIES: No cyanosis, clubbing edema +1 NEUROLOGIC: Generalized weakness, unable to assess. Results/Medications Result Diagram: 04/29/17 0345 04/29/17 0345 Results 24 hrs Laboratory Tests Test 04/28/17 13:56 04/28/17 14:55 04/28/17 21:53 04/29/17 03:45 Sodium Level 146 H 140 Potassium Level 3.4 L 4.9 2.7 #*L Chloride Level 120 H 110 # Carbon Dioxide Level 23 20 L Anion Gap 6 L 13 # Blood Urea Nitrogen 18 16 Creatinine 0.72 0.58 L Glucose Level 137 307 #H Calcium Level 9.7 8.9 Lactic Acid Level 1.6 Vancomycin Level Trough 17.1 White Blood Count 10.4 Red Blood Count 3.03 L Hemoglobin 9.1 L Hematocrit 27.4 L Mean Corpuscular Volume 90.4 Mean Corpuscular Hemoglobin 30.0 Mean Corpuscular Hemoglobin Concent 33.2 Red Cell Distribution Width 16.7 H Platelet Count 45 L Mean Platelet Volume 13.0 #H Neutrophils % 87.2 H Lymphocytes % 5.8 L Monocytes % 4.4 Eosinophils % 1.9 Basophils % 0.2 Nucleated Red Blood Cells % 0.0 Neutrophils # 9.1 H Lymphocytes # 0.6 L Monocytes # 0.5 Eosinophils # 0.2 Basophils # 0.0 Nucleated Red Blood Cells # 0.0 Test 04/29/17 05:22 Lab Scanned Report BLOOD TRANSFUSION Medications Current Medications Posaconazole 400 mg 400 mg BID PO Last administered on 04/29/17 07:54; Admin Dose 400 MG; Start 04/25/17 at 19:00 Aztreonam (Azactam 1gm/NS (Pmx)) 50 ml @ 100 mls/hr Q12 IVPB Last administered on 04/29/17 07:52; Admin Dose 100 MLS/HR; Start 04/25/17 at 18:30 Vancomycin HCl (Vanco Iv Per Pharmacy) PER PHARMACY DOSING NOTE XX ; Start 04/25 at 18:30 Acetaminophen (Tylenol Liquid) 650 mg Q4 PRN GTB PAIN AND OR ELEVATED TEMP Last administered on 04/28/17 14:09; Admin Dose 650 MG; Start 04/25/17 at 23:00 Eye Lubricant (Akwa Oint) 1 applic QID BOTH EYES Last administered on 21:01; Admin Dose 1 APPLIC; Start 04/26/17 at 09:00 Bromocriptine Mesylate (Parlodel) 30 mg DAILY GTB Last administered on 07:52; Admin Dose 30 MG; Start 04/26/17 at 09:00 Chlorhexidine Gluconate (Peridex) 15 ml BID MM Last administered on 04/29/17 07:53; Admin Dose 15 ML; Start 04/26/17 at 09:00 Enoxaparin Sodium (Lovenox) 30 mg DAILY SC Last administered on 04/29/17 07:55 ; Admin Dose 30 MG; Start 04/26/17 at 09:00 Ferrous Sulfate (Feosol Liquid Cup) 300 mg BID GTB Last administered on 07:53; Admin Dose 300 MG; Start 04/26/17 at 09:00 Hydrocortisone (Cortef) 20 mg DAILY GTB Last administered on 04/29/17 07:53; Admin Dose 20 MG; Start 04/26/17 at 09:00 Ondansetron HCl (Zofran Tab) 4 mg Q8 PRN GTB NAUSEA AND/OR VOMITING; Start at 23:00 Lactobacillus Acidophilus (Florajen3 Capsule) 1 each DAILY PEG Last administered on 04/29/17 07:53; Admin Dose 1 EACH; Start 04/26/17 at 09:00 Ergocalciferol (Drisdol) 50,000 unit Q7D GTB ; Start 05/02/17 at 09:00 Ascorbic Acid (Vitamin C) 250 mg BID GTB Last administered on 04/29/17 07:53; Admin Dose 250 MG; Start 04/26/17 at 09:00 Famotidine 20 mg 20 mg BID GTB Last administered on 04/29/17 07:53; Admin Dose 20 MG; Start 04/26/17 at 09:00 Phenylephrine HCl 40 mg/Dextrose 500 ml @ 75 mls/hr TITRATE IV ; Start at 08:30 Norepinephrine/ Dextrose (Levophed/D5W) 500 ml @ 1.87 mls/hr TITRATE IV Last administered on 04/28/17 17:00; Admin Dose 3.75 MLS/HR; Start 04/26/17 at 14:30 Morphine Sulfate 2 mg 2 mg Q4H PRN IV PAIN Last administered on 04/28/17 08:59 ; Admin Dose 2 MG; Start 04/26/17 at 16:30 Vancomycin HCl 100 ml @ 100 mls/hr Q8H IVPB Last administered on 04/29/17 05: 58; Admin Dose 100 MLS/HR; Start 04/27/17 at 14:30 Piperacillin Sod/ Tazobactam Sod (Zosyn 3.375gm/ 100 ml (Pmx)) 100 ml @ 200 mls /hr Q8 IVPB Last administered on 04/29/17 05:25; Admin Dose 200 MLS/HR; Start 04/27/17 at 14:00 Desmopressin Acetate 0.1 mg 0.1 mg BID GTB Last administered on 04/29/17 07:53 ; Admin Dose 0.1 MG; Start 04/27/17 at 21:00 Potassium Chloride/Dextrose (KCl/D5W) 1,010 ml @ 100 mls/hr Q10H6M IV Last administered on 04/29/17 02:01; Admin Dose 100 MLS/HR; Start 04/28/17 at 14:26 Assessment/Plan Chief Complaint/Hosp Course Assessment 1. Disseminated coccidiomycosis with encephalopathy. 2. Vent dependent respiratory failure 3. Septic shock, possible adrenal insufficiency will check cortisol level. 4. Hypokalemia 5. Anemia of chronic disease 6. Likely chronic from cytopenia Recommendations 1. Continue mechanical ventilation 2. Continue tube feeding as tolerated 3. Consider increasing free water, renal recommendations 4. Replace potassium 5. DVT GI prophylaxis 6. Decrease vasopressors as tolerated Disposition Continue ICU care critical care time 40 minutes. Problems: FRANCESCA HANSEN MD, [facility] Apr 29, 2017 09:41
[2017-04-29] MEDS: OCULAR LUBRICANT 3.5 GM OPH OINT BOTH EYES SCH ×4 (10:14→20:56)
[2017-04-29] MEDS ORDERED: MAGNESIUM SULFATE 2 GM/50 ML 50 ML IVPB ONE (12:00)
[2017-04-29] MEDS ORDERED: POTASSIUM CHLORIDE 20 MEQ POWDER FOR ORAL SOLN JT ONE (12:00)
--- NOTE | 2017-04-29 12:01 | CONS ---
Date/Time of Note Date/Time of Note DATE: 04/29/17 TIME: 11:50 Assessment/Plan Assessment/Plan Additional Assessment/Plan Septic shock on IV pressor Disseminated coccidiomycosis Pneumonia UTI Vent dependent respiratory failure Encephalopathy -We will continue to titrate IV pressor to maintain SBP greater than 90 and/or map above 60. Hold any antihypertensive medications. IV fluids as per our nephrology colleagues. Antibiotics as per infectious disease. Maintain potassium above 4.0 magnesium of 2.0. Consultation Date/Type/Reason Admit Date/Time Apr 25, 2017 at 12:31 Type of Consultation: cv Reason for Consultation Hypotension Hx of Present Illness This is a 27-year-old male with history of disseminated coccidiomycosis, vent dependent respiratory failure was admitted to the ICU with worsening sepsis and hypotension. Patient has been on IV pressor and cardiology consultation was requested for evaluation secondary to hypotension. As per nursing staff, patient is on levo fed and is very sensitive to adjustments. History is obtained from medical chart and nursing staff and primary physician. Psychological: confusion Past Medical History Disseminated coccidiomycosis Vent dependent respiratory failure Medical History: other (FUngal meningitis, coma ) Past Surgical History Past Surgical Hx: other (Right sided [employer] carmona, G tube, Tracheostomy ) Family History Significant Family History: no pertinent family hx Social History Alcohol Use: other Smoking Status: Never smoker Drug Use: other (Not available ) Exam/Review of Systems Vital Signs Vitals Vital Signs Date Time Temp Pulse Resp B/P Pulse Ox O2 Delivery O2 Flow Rate FiO2 04/29/17 10:45 71 30 93/61 97 04/29/17 08:00 30 04/29/17 07:15 97.4 04/29/17 04:00 Mechanical Ventilator Intake and Output 04/28/17 04/28/17 04/29/17 15:00 23:00 07:00 Intake Total 674.96 ml 909.37 ml 1880.75 ml Output Total 1500 ml 1075 ml 535 ml Balance -825.04 ml -165.63 ml 1345.75 ml Exam No apparent distress, does not open his eyes to name Head: normocephalic Neck: other (Tracheostomy) Respiratory: other (Coarse breath sounds bilaterally, no wheezing) Cardiovascular: other (S1-S2 heard), regular rate and rhythm Gastrointestinal: bowel sounds, other (No grimacing with palpation), soft Extremities: other (No edema) Results Result Diagram: 04/29/17 0345 04/29/17 0345 Results 24 hrs Laboratory Tests Test 04/28/17 13:56 04/28/17 14:55 04/28/17 21:53 04/29/17 03:45 Sodium Level 146 H 140 Potassium Level 3.4 L 4.9 2.7 #*L Chloride Level 120 H 110 # Carbon Dioxide Level 23 20 L Anion Gap 6 L 13 # Blood Urea Nitrogen 18 16 Creatinine 0.72 0.58 L Glucose Level 137 307 #H Calcium Level 9.7 8.9 Lactic Acid Level 1.6 Vancomycin Level Trough 17.1 White Blood Count 10.4 Red Blood Count 3.03 L Hemoglobin 9.1 L Hematocrit 27.4 L Mean Corpuscular Volume 90.4 Mean Corpuscular Hemoglobin 30.0 Mean Corpuscular Hemoglobin Concent 33.2 Red Cell Distribution Width 16.7 H Platelet Count 45 L Mean Platelet Volume 13.0 #H Neutrophils % 87.2 H Lymphocytes % 5.8 L Monocytes % 4.4 Eosinophils % 1.9 Basophils % 0.2 Nucleated Red Blood Cells % 0.0 Neutrophils # 9.1 H Lymphocytes # 0.6 L Monocytes # 0.5 Eosinophils # 0.2 Basophils # 0.0 Nucleated Red Blood Cells # 0.0 Test 04/29/17 05:22 Lab Scanned Report BLOOD TRANSFUSION Medications Medications Current Medications Posaconazole 400 mg 400 mg BID PO Last administered on 04/29/17 07:54; Admin Dose 400 MG; Start 04/25/17 at 19:00 Aztreonam (Azactam 1gm/NS (Pmx)) 50 ml @ 100 mls/hr Q12 IVPB Last administered on 04/29/17 07:52; Admin Dose 100 MLS/HR; Start 04/25/17 at 18:30 Vancomycin HCl (Vanco Iv Per Pharmacy) PER PHARMACY DOSING NOTE XX ; Start 04/25 at 18:30 Acetaminophen (Tylenol Liquid) 650 mg Q4 PRN GTB PAIN AND OR ELEVATED TEMP Last administered on 04/28/17 14:09; Admin Dose 650 MG; Start 04/25/17 at 23:00 Eye Lubricant (Akwa Oint) 1 applic QID BOTH EYES Last administered on 10:14; Admin Dose 1 APPLIC; Start 04/26/17 at 09:00 Bromocriptine Mesylate (Parlodel) 30 mg DAILY GTB Last administered on 07:52; Admin Dose 30 MG; Start 04/26/17 at 09:00 Chlorhexidine Gluconate (Peridex) 15 ml BID MM Last administered on 04/29/17 07:53; Admin Dose 15 ML; Start 04/26/17 at 09:00 Enoxaparin Sodium (Lovenox) 30 mg DAILY SC Last administered on 04/29/17 07:55 ; Admin Dose 30 MG; Start 04/26/17 at 09:00 Ferrous Sulfate (Feosol Liquid Cup) 300 mg BID GTB Last administered on 07:53; Admin Dose 300 MG; Start 04/26/17 at 09:00 Hydrocortisone (Cortef) 20 mg DAILY GTB Last administered on 04/29/17 07:53; Admin Dose 20 MG; Start 04/26/17 at 09:00 Ondansetron HCl (Zofran Tab) 4 mg Q8 PRN GTB NAUSEA AND/OR VOMITING; Start at 23:00 Lactobacillus Acidophilus (Florajen3 Capsule) 1 each DAILY PEG Last administered on 04/29/17 07:53; Admin Dose 1 EACH; Start 04/26/17 at 09:00 Ergocalciferol (Drisdol) 50,000 unit Q7D GTB ; Start 05/02/17 at 09:00 Ascorbic Acid (Vitamin C) 250 mg BID GTB Last administered on 04/29/17 07:53; Admin Dose 250 MG; Start 04/26/17 at 09:00 Famotidine 20 mg 20 mg BID GTB Last administered on 04/29/17 07:53; Admin Dose 20 MG; Start 04/26/17 at 09:00 Phenylephrine HCl 40 mg/Dextrose 500 ml @ 75 mls/hr TITRATE IV ; Start at 08:30 Norepinephrine/ Dextrose (Levophed/D5W) 500 ml @ 1.87 mls/hr TITRATE IV Last administered on 04/28/17 17:00; Admin Dose 3.75 MLS/HR; Start 04/26/17 at 14:30 Morphine Sulfate 2 mg 2 mg Q4H PRN IV PAIN Last administered on 04/28/17 08:59 ; Admin Dose 2 MG; Start 04/26/17 at 16:30 Vancomycin HCl 100 ml @ 100 mls/hr Q8H IVPB Last administered on 04/29/17 05: 58; Admin Dose 100 MLS/HR; Start 04/27/17 at 14:30 Piperacillin Sod/ Tazobactam Sod (Zosyn 3.375gm/ 100 ml (Pmx)) 100 ml @ 200 mls /hr Q8 IVPB Last administered on 04/29/17 05:25; Admin Dose 200 MLS/HR; Start 04/27/17 at 14:00 Desmopressin Acetate 0.1 mg 0.1 mg BID GTB Last administered on 04/29/17 07:53 ; Admin Dose 0.1 MG; Start 04/27/17 at 21:00 Potassium Chloride/Dextrose/ Sod Cl (D5-1/2ns + KCl 40 Meq) 1,000 ml @ 120 mls/ hr Q8H20M IV ; Start 04/29/17 at 12:30 Procedures Procedures ECG demonstrates sinus tachycardia at 1 30 bpm, QRS 82 ms, nonspecific T-wave abnormalities Current heart rate on telemetry in the 70s Oscar Awan DO Apr 29, 2017 12:00
[2017-04-29] MEDS: D5W-0.45 NACL + KCL 40 MEQ 1,000 ML IV SCH ×2 (14:26→20:56)
--- NOTE | 2017-04-29 15:04 | RADRPT ---
Echocardiogram Report Patient Name: JESSICA FIELD D Gender: Male Date: 1990 Study Date: 29-Apr-2017 Bioinformatics Support Specialist: Alfred Batista RDCS Location: 113 Ref. Physician: OSCAR QUESADA Quality: Good Procedures: Transthoracic echocardiogram with complete 2D, M-Mode, and doppler examination. Indications: Shock. 2D/M Mode Doppler Measurement Value Normal Ranges Measurement Value Normal Ranges LVIDd 2D 4.2 3.5 - 5.6 cm AV Peak Rick 1.2 m/sec LVIDs 2D 3.1 2.1 - 4.1 cm AV Peak PG 6.2 mmHg LVPWd 2D 0.9 0.6 - 1.1 cm LVOT Peak Rick 1.0 m/sec IVSd 2D 0.8 0.6 - 1.1 cm LVOT Peak PG 3.9 mmHg AoR Diam 2D 2.5 2.0 - 3.7 cm MV E Peak Rick 1.0 m/sec EDV 2D 79.9 cm3 MV A Peak Rick 0.6 m/sec ESV 2D 31.1 cm3 MV E/A 1.7 LA Dimen 2D 2.6 2.3 - 4.0 cm MV Decel Time 134 msec MV Decel [place] 7 MV E/A 1.7 TR Peak Rick 2.1 m/sec TR Peak PG 17.3 mmHg RVSP 32.0 mmHg Findings Left Ventricle: Lower limits of normal systolic function. Normal left ventricular cavity size. Normal left ventricular wall thickness. Ejection fraction is visually estimated at 50 %. Tissue Doppler/Mitral Doppler indices are within normal limits. Right Ventricle: Normal right ventricular size. Normal right ventricular systolic function. Left Atrium: The left atrium is normal in size. Right Atrium: The right atrium is normal in size. Mitral Valve: Mitral valve leaflets appear mildly thickened. Mild mitral annular calcification. Trace mitral regurgitation. Aortic Valve: Normal appearance of the aortic valve. No significant aortic stenosis or insufficiency. Tricuspid Valve: Normal appearance and function of the tricuspid valve with trace physiologic regurgitation. Estimated peak PA systolic pressure 32 mmHg. Pulmonic Valve: Normal pulmonic valve appearance. Pericardium: Normal pericardium with no significant pericardial effusion. Aorta: Normal aortic root. IVC: Inferior vena cava without respiratory collapse, however, patient on ventilator. Conclusions 1.Lower limits of normal systolic function. Normal left ventricular cavity size. Normal left ventricular wall thickness. Ejection fraction is visually estimated at 50 %. Tissue Doppler/Mitral Doppler indices are within normal limits. 2.Normal right ventricular size. Normal right ventricular systolic function. 3.The left atrium is normal in size. 4.The right atrium is normal in size. 5.No significant valvular stenosis or regurgitation seen. 6.Normal pericardium with no significant pericardial effusion. Electronically Signed By: Oscar Quesada 29-Apr-2017 15:04:16 -0700 Patient Name: JESSICA FIELD D Study Date: 29-Apr-2017 [id number]
--- NOTE | 2017-04-29 17:20 | CONS ---
Date/Time of Note Date/Time of Note DATE: 04/29/17 TIME: 17:16 Assessment/Plan Assessment/Plan Chief Complaint/Hosp Course assessment/impression - septic shock due to pneumonia and UTI - UTI due to ESBL+E. coli - b/l pneumonia due to klebsiella - herpes labialis - h/o disseminated coccidioides mycosis infection, meningitis - s/p VPS placement - VDRF s/p tracheostomy - PEG dependet status - pancytopenia, due to septic shock on admission - thrombocytopenia - leukocytosis likely secondary to septic shock and steroid recommendations - pending results: cocci CF, legionella antigen, posaconazole trough level 2016 - Pt's mother confirmed that Pt tolerated meropenem without seizure. Therefore, I will switch pip/tazo (04/27/2017-) and aztreonam to meropenem - d/c empiric IV vancomycin - JOE Galeano at neurosurgery department at [facility] informed us that Pt's posaconazole level was low at [facility], and advised the posaconazole dose be increased to 1200 mg day. Will change his posaconazole to 400 mg q8hrs and repeat the level on 05/07/2017 - continue acyclovir for herpes labialis (04/27/2017-) management d/w Pt's RN, mother the critical care time I took to care for this Pt today day was from 1620 to 1700 Problems: Consultation Date/Type/Reason Admit Date/Time Apr 25, 2017 at 12:31 Initial Consult Date 04/25/17 Type of Consultation: ID Referring Provider: HELEN CASTELLANO MD 24 HR Interval Summary Subjective hx not possible: pt non-verbal, pt critical, pt critical status Exam/Review of Systems Vital Signs Vitals Vital Signs Date Time Temp Pulse Resp B/P Pulse Ox O2 Delivery O2 Flow Rate FiO2 04/29/17 16:00 73 04/29/17 14:45 28 97/69 97 04/29/17 14:00 30 04/29/17 12:15 98.0 04/29/17 04:00 Mechanical Ventilator Intake and Output 04/28/17 04/28/17 04/29/17 15:00 23:00 07:00 Intake Total 674.96 ml 909.37 ml 1900.75 ml Output Total 1500 ml 1075 ml 535 ml Balance -825.04 ml -165.63 ml 1365.75 ml Exam Constitutional: frail, non-verbal Psych: confusion Head: other (s/p VPS placement) Eyes: nl conjunctiva, other (L ptosis) ENMT: nl external ears & nose, nl nasal mucosa & septum, other (crust on the lower lip) Neck: other (trach) Respiratory: crackles/rales Cardiovascular: nl pulses, regular rate and rhythm Gastrointestinal: non-tender, other (PEG), soft Genitourinary - Male: other (FC) Musculoskeletal: nl extremities to inspection Extremities: No edema Neurological: other (decerebate), unresponsive Skin: nl turgor Results Result Diagram: 04/29/17 0345 04/29/17 0345 Results 24 hrs Laboratory Tests Test 04/28/17 21:53 04/29/17 03:45 04/29/17 05:22 04/29/17 12:32 Potassium Level 4.9 2.7 #*L Vancomycin Level Trough 17.1 White Blood Count 10.4 Red Blood Count 3.03 L Hemoglobin 9.1 L Hematocrit 27.4 L Mean Corpuscular Volume 90.4 Mean Corpuscular Hemoglobin 30.0 Mean Corpuscular Hemoglobin Concent 33.2 Red Cell Distribution Width 16.7 H Platelet Count 45 L Mean Platelet Volume 13.0 #H Neutrophils % 87.2 H Lymphocytes % 5.8 L Monocytes % 4.4 Eosinophils % 1.9 Basophils % 0.2 Nucleated Red Blood Cells % 0.0 Neutrophils # 9.1 H Lymphocytes # 0.6 L Monocytes # 0.5 Eosinophils # 0.2 Basophils # 0.0 Nucleated Red Blood Cells # 0.0 Sodium Level 140 Chloride Level 110 # Carbon Dioxide Level 20 L Anion Gap 13 # Blood Urea Nitrogen 16 Creatinine 0.58 L Glucose Level 307 #H Calcium Level 8.9 Lab Scanned Report BLOOD TRANSFUSION REFERENCE LAB Medications Medications Current Medications Posaconazole 400 mg 400 mg BID PO Last administered on 04/29/17 07:54; Admin Dose 400 MG; Start 04/25/17 at 19:00 Aztreonam (Azactam 1gm/NS (Pmx)) 50 ml @ 100 mls/hr Q12 IVPB Last administered on 04/29/17 07:52; Admin Dose 100 MLS/HR; Start 04/25/17 at 18:30 Vancomycin HCl (Vanco Iv Per Pharmacy) PER PHARMACY DOSING NOTE XX ; Start 04/25 at 18:30 Acetaminophen (Tylenol Liquid) 650 mg Q4 PRN GTB PAIN AND OR ELEVATED TEMP Last administered on 04/28/17 14:09; Admin Dose 650 MG; Start 04/25/17 at 23:00 Eye Lubricant (Akwa Oint) 1 applic QID BOTH EYES Last administered on 14:22; Admin Dose 1 APPLIC; Start 04/26/17 at 09:00 Bromocriptine Mesylate (Parlodel) 30 mg DAILY GTB Last administered on 07:52; Admin Dose 30 MG; Start 04/26/17 at 09:00 Chlorhexidine Gluconate (Peridex) 15 ml BID MM Last administered on 04/29/17 07:53; Admin Dose 15 ML; Start 04/26/17 at 09:00 Enoxaparin Sodium (Lovenox) 30 mg DAILY SC Last administered on 04/29/17 07:55 ; Admin Dose 30 MG; Start 04/26/17 at 09:00 Ferrous Sulfate (Feosol Liquid Cup) 300 mg BID GTB Last administered on 07:53; Admin Dose 300 MG; Start 04/26/17 at 09:00 Hydrocortisone (Cortef) 20 mg DAILY GTB Last administered on 04/29/17 07:53; Admin Dose 20 MG; Start 04/26/17 at 09:00 Ondansetron HCl (Zofran Tab) 4 mg Q8 PRN GTB NAUSEA AND/OR VOMITING; Start at 23:00 Lactobacillus Acidophilus (Florajen3 Capsule) 1 each DAILY PEG Last administered on 04/29/17 07:53; Admin Dose 1 EACH; Start 04/26/17 at 09:00 Ergocalciferol (Drisdol) 50,000 unit Q7D GTB ; Start 05/02/17 at 09:00 Ascorbic Acid (Vitamin C) 250 mg BID GTB Last administered on 04/29/17 07:53; Admin Dose 250 MG; Start 04/26/17 at 09:00 Famotidine 20 mg 20 mg BID GTB Last administered on 04/29/17 07:53; Admin Dose 20 MG; Start 04/26/17 at 09:00 Phenylephrine HCl 40 mg/Dextrose 500 ml @ 75 mls/hr TITRATE IV ; Start at 08:30 Norepinephrine/ Dextrose (Levophed/D5W) 500 ml @ 1.87 mls/hr TITRATE IV Last administered on 04/28/17 17:00; Admin Dose 3.75 MLS/HR; Start 04/26/17 at 14:30 Morphine Sulfate 2 mg 2 mg Q4H PRN IV PAIN Last administered on 04/28/17 08:59 ; Admin Dose 2 MG; Start 04/26/17 at 16:30 Vancomycin HCl 100 ml @ 100 mls/hr Q8H IVPB Last administered on 04/29/17 14: 32; Admin Dose 100 MLS/HR; Start 04/27/17 at 14:30 Piperacillin Sod/ Tazobactam Sod (Zosyn 3.375gm/ 100 ml (Pmx)) 100 ml @ 200 mls /hr Q8 IVPB Last administered on 04/29/17 14:25; Admin Dose 200 MLS/HR; Start 04/27/17 at 14:00 Desmopressin Acetate 0.1 mg 0.1 mg BID GTB Last administered on 04/29/17 07:53 ; Admin Dose 0.1 MG; Start 04/27/17 at 21:00 Potassium Chloride/Dextrose/ Sod Cl (D5-1/2ns + KCl 40 Meq) 1,000 ml @ 120 mls/ hr Q8H20M IV Last administered on 04/29/17 14:26; Admin Dose 120 MLS/HR; Start 04/29/17 at 12:30 ELENI EVANS M.D. Apr 29, 2017 17:20
[2017-04-29] MEDS: morphine 2 MG INJ IV PRN (20:05)
--- NOTE | 2017-04-29 20:45 | CONS ---
Date/Time of Note Date/Time of Note DATE: 04/29/17 TIME: 20:42 Assessment/Plan Assessment/Plan Additional Assessment/Plan 1. Non Oliguric Acute kidney injury due to septic shock 2. Hypernaremia 3. Septic shock on levophed 4. Acute on chronic resp failure s/p Tracheostomy 5. H/o Fungal meningitis, currently comatose 6. H/O Right sided [employer] shunt 7. 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 Polyuria Plan: continue D5W with 20mEQ KCL at 100 ml/hr, today K has been replaced per protocol levophed for bP support Na improved to normal, Cr improved to normal conitnue DDAVP to 0.1mg PO BID , U/o 3.3 yesterday, plan is to decrease DDAVP to 0.05 mg BID ID, pulmonary has been following will follow up Consultation Date/Type/Reason Admit Date/Time Apr 25, 2017 at 12:31 Initial Consult Date 04/25/17 Type of Consultation: NEPHROLOGY Referring Provider: HELEN CASTELLANO MD 24 HR Interval Summary Free Text/Dictation pt remains intubated on ventilator, on low dose levophed, stable BP , K low Exam/Review of Systems Vital Signs Vitals Vital Signs Date Time Temp Pulse Resp B/P Pulse Ox O2 Delivery O2 Flow Rate FiO2 04/29/17 20:15 68 31 105/77 99 04/29/17 20:00 30 04/29/17 20:00 98.1 04/29/17 04:00 Mechanical Ventilator Intake and Output 04/28/17 04/28/17 04/29/17 15:00 23:00 07:00 Intake Total 674.96 ml 909.37 ml 1900.75 ml Output Total 1500 ml 1075 ml 535 ml Balance -825.04 ml -165.63 ml 1365.75 ml Exam Constitutional: non-verbal ENMT: other ( tracheostomy ) Respiratory: congested cough, crackles/rales, diminished breath sounds Cardiovascular: other (tachycardia ), regular rate and rhythm Gastrointestinal: non-tender, other, soft Neurological: lethargic, other (Uncooperative for exam ) Skin: nl turgor Results Result Diagram: 04/29/17 0345 04/29/17 1815 Results 24 hrs Laboratory Tests Test 04/28/17 21:53 04/29/17 03:45 04/29/17 05:22 04/29/17 12:32 Potassium Level 4.9 2.7 #*L Vancomycin Level Trough 17.1 White Blood Count 10.4 Red Blood Count 3.03 L Hemoglobin 9.1 L Hematocrit 27.4 L Mean Corpuscular Volume 90.4 Mean Corpuscular Hemoglobin 30.0 Mean Corpuscular Hemoglobin Concent 33.2 Red Cell Distribution Width 16.7 H Platelet Count 45 L Mean Platelet Volume 13.0 #H Neutrophils % 87.2 H Lymphocytes % 5.8 L Monocytes % 4.4 Eosinophils % 1.9 Basophils % 0.2 Nucleated Red Blood Cells % 0.0 Neutrophils # 9.1 H Lymphocytes # 0.6 L Monocytes # 0.5 Eosinophils # 0.2 Basophils # 0.0 Nucleated Red Blood Cells # 0.0 Sodium Level 140 Chloride Level 110 # Carbon Dioxide Level 20 L Anion Gap 13 # Blood Urea Nitrogen 16 Creatinine 0.58 L Glucose Level 307 #H Calcium Level 8.9 Lab Scanned Report BLOOD TRANSFUSION REFERENCE LAB Test 04/29/17 18:15 Potassium Level 3.4 L Medications Medications Current Medications Acetaminophen (Tylenol Liquid) 650 mg Q4 PRN GTB PAIN AND OR ELEVATED TEMP Last administered on 04/28/17 14:09; Admin Dose 650 MG; Start 04/25/17 at 23:00 Eye Lubricant (Akwa Oint) 1 applic QID BOTH EYES Last administered on 17:40; Admin Dose 1 APPLIC; Start 04/26/17 at 09:00 Bromocriptine Mesylate (Parlodel) 30 mg DAILY GTB Last administered on 07:52; Admin Dose 30 MG; Start 04/26/17 at 09:00 Chlorhexidine Gluconate (Peridex) 15 ml BID MM Last administered on 04/29/17 07:53; Admin Dose 15 ML; Start 04/26/17 at 09:00 Enoxaparin Sodium (Lovenox) 30 mg DAILY SC Last administered on 04/29/17 07:55 ; Admin Dose 30 MG; Start 04/26/17 at 09:00 Ferrous Sulfate (Feosol Liquid Cup) 300 mg BID GTB Last administered on 07:53; Admin Dose 300 MG; Start 04/26/17 at 09:00 Hydrocortisone (Cortef) 20 mg DAILY GTB Last administered on 04/29/17 07:53; Admin Dose 20 MG; Start 04/26/17 at 09:00 Ondansetron HCl (Zofran Tab) 4 mg Q8 PRN GTB NAUSEA AND/OR VOMITING; Start at 23:00 Lactobacillus Acidophilus (Florajen3 Capsule) 1 each DAILY PEG Last administered on 04/29/17 07:53; Admin Dose 1 EACH; Start 04/26/17 at 09:00 Ergocalciferol (Drisdol) 50,000 unit Q7D GTB ; Start 05/02/17 at 09:00 Ascorbic Acid (Vitamin C) 250 mg BID GTB Last administered on 04/29/17 07:53; Admin Dose 250 MG; Start 04/26/17 at 09:00 Famotidine 20 mg 20 mg BID GTB Last administered on 04/29/17 07:53; Admin Dose 20 MG; Start 04/26/17 at 09:00 Phenylephrine HCl 40 mg/Dextrose 500 ml @ 75 mls/hr TITRATE IV ; Start at 08:30 Norepinephrine/ Dextrose (Levophed/D5W) 500 ml @ 1.87 mls/hr TITRATE IV Last administered on 04/28/17 17:00; Admin Dose 3.75 MLS/HR; Start 04/26/17 at 14:30 Morphine Sulfate (morphine) 2 mg Q4H PRN IV PAIN Last administered on 20:05; Admin Dose 2 MG; Start 04/26/17 at 16:30 Desmopressin Acetate 0.1 mg 0.1 mg BID GTB Last administered on 04/29/17 07:53 ; Admin Dose 0.1 MG; Start 04/27/17 at 21:00 Potassium Chloride/Dextrose/ Sod Cl (D5-1/2ns + KCl 40 Meq) 1,000 ml @ 120 mls/ hr Q8H20M IV Last administered on 04/29/17 14:26; Admin Dose 120 MLS/HR; Start 04/29/17 at 12:30 Posaconazole 400 mg 400 mg Q8 PO ; Start 04/29/17 at 22:00 Meropenem/Sodium Chloride (Merrem 1 Gm/50 ml (Pmx)) 50 ml @ 100 mls/hr Q8 IVPB ; Start 04/29/17 at 22:00 FARHAT RUBIO MD Apr 29, 2017 20:45
[2017-04-29] MEDS: MEROPENEM 1 GM/50ML(PMX) 50 ML IVPB SCH (20:57)
[2017-04-30] VITALS (93 sets, daily range): BP systolic 92–122; BP diastolic 58–94; PULSE 63–105; RESP 16–47
[2017-04-30] MEDS: D5W-0.45 NACL + KCL 40 MEQ 1,000 ML IV SCH ×2 (04:20→15:25)
[2017-04-30 05:15] LABS: BASOPHILS % 0.1 % (0.0-2.0); EOSINOPHILS # 0.1 10^3/ul (0.0-0.5); EOSINOPHILS % 1.1 % (0.0-7.0); HEMATOCRIT 29.4 % (42.0-52.0); HEMOGLOBIN 9.6 g/dl (14.0-18.0); LYMPHOCYTES # 0.7 10^3/ul (0.8-2.9); LYMPHOCYTES % 7.7 % (15.0-51.0); MEAN CORPUSCULAR HEMOGLOBIN 28.9 pg (29.0-33.0); MEAN CORPUSCULAR HGB CONC 32.7 g/dl (32.0-37.0); MEAN CORPUSCULAR VOLUME 88.6 fl (82.0-101.0); MEAN PLATELET VOLUME 12.2 fl (7.4-10.4); MONOCYTE # 0.5 10^3/ul (0.3-0.9); MONOCYTES % 5.3 % (0.0-11.0); NEUTROPHIL # 7.4 10^3/ul (1.6-7.5); NEUTROPHILS % 84.7 % (39.0-77.0); PLATELET COUNT 107 10^3/UL (140-415); RED BLOOD COUNT 3.32 10^6/ul (4.70-6.10); RED CELL DISTRIBUTION WIDTH 16.7 % (11.5-14.5); WHITE BLOOD COUNT 8.7 10^3/ul (4.8-10.8)
[2017-04-30] MEDS: POSACONAZOLE PO SCH ×2 (05:32→21:20)
[2017-04-30] MEDS: MEROPENEM 1 GM/50ML(PMX) 50 ML IVPB SCH ×3 (05:32→21:22)
[2017-04-30 05:43] LABS: CALCIUM 8.6 mg/dl (8.4-10.2); CREATININE 0.55 mg/dl (0.61-1.24); POTASSIUM 3.4 mmol/L (3.5-5.1)
[2017-04-30] MEDS: POTASSIUM CHLORIDE 50 ML IVPB PRN ×4 (06:25→21:21)
[2017-04-30] MEDS: CHLORHEXIDINE GLUCONATE 15 ML UD CUP MM SCH ×2 (08:40→21:20)
[2017-04-30] MEDS: FERROUS SULFATE 60 MG/ML 5ML CUP GTB SCH ×2 (08:40→21:21)
[2017-04-30] MEDS: ACYCLOVIR 400 MG TAB PEG SCH ×5 (08:41→22:56)
[2017-04-30] MEDS: HYDROCORTISONE 20 MG TAB GTB SCH (08:41)
[2017-04-30] MEDS: FAMOTIDINE 20 MG TAB GTB SCH ×2 (08:41→21:21)
[2017-04-30] MEDS: ASCORBIC ACID 250 MG TAB GTB SCH ×2 (08:41→21:21)
[2017-04-30] MEDS: L ACIDOPHIL/B LACTIS/B LONGUM CAPSULE PEG SCH (08:41)
[2017-04-30] MEDS: DESMOPRESSIN 0.1 MG TAB GTB SCH ×2 (08:42→21:21)
[2017-04-30] MEDS: OCULAR LUBRICANT 3.5 GM OPH OINT BOTH EYES SCH ×4 (08:42→21:20)
[2017-04-30] MEDS: ENOXAPARIN 30 MG/0.3 ML SYG SC SCH (08:44)
[2017-04-30] MEDS: BROMOCRIPTINE 2.5 MG TAB GTB SCH (08:55)
--- NOTE | 2017-04-30 09:43 | CONS ---
Date/Time of Note Date/Time of Note DATE: 04/30/17 TIME: 09:39 Assessment/Plan Assessment/Plan Chief Complaint/Hosp Course assessment/impression - septic shock due to pneumonia and UTI - UTI due to ESBL+E. coli - b/l pneumonia due to klebsiella, EBL+E. coli - herpes labialis - h/o disseminated coccidioides mycosis infection, meningitis. Cocci CF 1:16 on 04/26/2017 - s/p VPS placement - VDRF s/p tracheostomy - PEG dependet status - pancytopenia, due to septic shock on admission - thrombocytopenia - leukocytosis likely secondary to septic shock and steroid recommendations - pending results: legionella antigen, posaconazole trough level 04/27/2017 - continue meropenem (04/29/2017-) - continue posaconazole to 400 mg q8hrs and repeat the level on 05/07/2017 (dose increased on 04/29/2017 according to the advise from JOE Galeano at neurosurgery department at [facility] informing us that Pt's posaconazole level had been low at [facility]) - continue acyclovir for herpes labialis (04/27/2017-), 7 days management d/w Pt's RN and mother the critical care time I took to care for this Pt today day was from 0900 to 0930 Problems: Consultation Date/Type/Reason Admit Date/Time Apr 25, 2017 at 12:31 Initial Consult Date 04/25/17 Type of Consultation: ID Referring Provider: HELEN CASTELLANO MD 24 HR Interval Summary Subjective hx not possible: pt non-verbal, pt critical, pt critical status Exam/Review of Systems Vital Signs Vitals Vital Signs Date Time Temp Pulse Resp B/P Pulse Ox O2 Delivery O2 Flow Rate FiO2 04/30/17 09:20 83 35 99 30 04/30/17 09:15 99/73 04/30/17 07:15 98.3 04/29/17 04:00 Mechanical Ventilator Intake and Output 04/29/17 04/29/17 04/30/17 15:00 23:00 07:00 Intake Total 960.00 ml 1432.5 ml 1997.5 ml Output Total 760 ml 1415 ml 1355 ml Balance 200.00 ml 17.5 ml 642.5 ml Exam Constitutional: frail, non-verbal Psych: confusion Head: other (s/p VPS placement) Eyes: nl conjunctiva, nl sclera, other (L ptosis) ENMT: nl external ears & nose, other (crusts on lower lip have nearly resolved) Neck: other (trach) Respiratory: crackles/rales Cardiovascular: nl pulses, regular rate and rhythm Gastrointestinal: non-tender, other (GT), soft Genitourinary - Male: other (FC) Musculoskeletal: nl extremities to inspection Extremities: No edema Neurological: confused, lethargic Skin: nl turgor Results Result Diagram: 04/30/17 0400 04/30/17 0430 Results 24 hrs Laboratory Tests Test 04/29/17 12:32 04/29/17 18:15 04/30/17 04:00 04/30/17 04:30 Lab Scanned Report REFERENCE LAB Potassium Level 3.4 L 3.4 L White Blood Count 8.7 Red Blood Count 3.32 L Hemoglobin 9.6 L Hematocrit 29.4 L Mean Corpuscular Volume 88.6 Mean Corpuscular Hemoglobin 28.9 L Mean Corpuscular Hemoglobin Concent 32.7 Red Cell Distribution Width 16.7 H Platelet Count 107 #L Mean Platelet Volume 12.2 H Neutrophils % 84.7 H Lymphocytes % 7.7 L Monocytes % 5.3 Eosinophils % 1.1 Basophils % 0.1 Nucleated Red Blood Cells % 0.0 Neutrophils # 7.4 Lymphocytes # 0.7 L Monocytes # 0.5 Eosinophils # 0.1 Basophils # 0.0 Nucleated Red Blood Cells # 0.0 Sodium Level 143 Chloride Level 115 H Carbon Dioxide Level 20 L Anion Gap 11 Blood Urea Nitrogen 13 Creatinine 0.55 L Glucose Level 123 # Calcium Level 8.6 Medications Medications Current Medications Acetaminophen (Tylenol Liquid) 650 mg Q4 PRN GTB PAIN AND OR ELEVATED TEMP Last administered on 04/28/17 14:09; Admin Dose 650 MG; Start 04/25/17 at 23:00 Eye Lubricant (Akwa Oint) 1 applic QID BOTH EYES Last administered on 08:42; Admin Dose 1 APPLIC; Start 04/26/17 at 09:00 Bromocriptine Mesylate (Parlodel) 30 mg DAILY GTB Last administered on 08:55; Admin Dose 30 MG; Start 04/26/17 at 09:00 Chlorhexidine Gluconate (Peridex) 15 ml BID MM Last administered on 04/30/17 08:40; Admin Dose 15 ML; Start 04/26/17 at 09:00 Enoxaparin Sodium (Lovenox) 30 mg DAILY SC Last administered on 04/30/17 08:44 ; Admin Dose 30 MG; Start 04/26/17 at 09:00 Ferrous Sulfate (Feosol Liquid Cup) 300 mg BID GTB Last administered on 08:40; Admin Dose 300 MG; Start 04/26/17 at 09:00 Hydrocortisone (Cortef) 20 mg DAILY GTB Last administered on 04/30/17 08:41; Admin Dose 20 MG; Start 04/26/17 at 09:00 Ondansetron HCl (Zofran Tab) 4 mg Q8 PRN GTB NAUSEA AND/OR VOMITING; Start at 23:00 Lactobacillus Acidophilus (Florajen3 Capsule) 1 each DAILY PEG Last administered on 04/30/17 08:41; Admin Dose 1 EACH; Start 04/26/17 at 09:00 Ergocalciferol (Drisdol) 50,000 unit Q7D GTB ; Start 05/02/17 at 09:00 Ascorbic Acid (Vitamin C) 250 mg BID GTB Last administered on 04/30/17 08:41; Admin Dose 250 MG; Start 04/26/17 at 09:00 Famotidine 20 mg 20 mg BID GTB Last administered on 04/30/17 08:41; Admin Dose 20 MG; Start 04/26/17 at 09:00 Phenylephrine HCl 40 mg/Dextrose 500 ml @ 75 mls/hr TITRATE IV ; Start at 08:30 Norepinephrine/ Dextrose (Levophed/D5W) 500 ml @ 1.87 mls/hr TITRATE IV Last administered on 04/28/17 17:00; Admin Dose 3.75 MLS/HR; Start 04/26/17 at 14:30 Morphine Sulfate (morphine) 2 mg Q4H PRN IV PAIN Last administered on 20:05; Admin Dose 2 MG; Start 04/26/17 at 16:30 Desmopressin Acetate 0.1 mg 0.1 mg BID GTB Last administered on 04/30/17 08:42 ; Admin Dose 0.1 MG; Start 04/27/17 at 21:00 Potassium Chloride/Dextrose/ Sod Cl (D5-1/2ns + KCl 40 Meq) 1,000 ml @ 120 mls/ hr Q8H20M IV Last administered on 04/30/17 04:20; Admin Dose 120 MLS/HR; Start 04/29/17 at 12:30 Posaconazole 400 mg 400 mg Q8 PO Last administered on 04/30/17 05:32; Admin Dose 400 MG; Start 04/29/17 at 22:00 Meropenem/Sodium Chloride (Merrem 1 Gm/50 ml (Pmx)) 50 ml @ 100 mls/hr Q8 IVPB Last administered on 04/30/17 05:32; Admin Dose 100 MLS/HR; Start 04/29/17 at 22:00 ELENI EVANS M.D. Apr 30, 2017 09:43
--- NOTE | 2017-04-30 10:17 | CONS ---
Date/Time of Note Date/Time of Note DATE: 04/30/17 TIME: 10:16 Consult Date/Type/Reason Admit Date/Time Apr 25, 2017 at 12:31 Initial Consult Date 04/25/17 Type of Consultation: pulm Ordering Provider: HELEN CASTELLANO MD Subjective Appears comfortable. Continues vasopressor support. Objective Vital Signs Date Time Temp Pulse Resp B/P Pulse Ox O2 Delivery O2 Flow Rate FiO2 04/30/17 09:20 83 35 99 30 04/30/17 09:15 99/73 04/30/17 07:15 98.3 04/29/17 04:00 Mechanical Ventilator Intake and Output 04/29/17 04/29/17 04/30/17 15:00 23:00 07:00 Intake Total 960.00 ml 1432.5 ml 1997.5 ml Output Total 760 ml 1415 ml 1355 ml Balance 200.00 ml 17.5 ml 642.5 ml Exam PHYSICAL EXAMINATION GENERAL: Chronically appearing young gentleman on mechanical ventilation. VITAL SIGNS: see below. HEENT: Pupils equal, round, and reactive to light. Tracheostomy site clean and intact. CARDIAC: S1, S2, 1/6 systolic ejection murmur CHEST: Diminished air entry bilaterally. ABDOMEN: Mildly distended. Bowel sounds present no guarding or rebound EXTREMITIES: No cyanosis, clubbing edema +1 NEUROLOGIC: Generalized weakness, unable to assess. Results/Medications Result Diagram: 04/30/17 0400 04/30/17 0430 Results 24 hrs Chest x-ray Bilateral infiltrates. Laboratory Tests Test 04/29/17 12:32 04/29/17 18:15 04/30/17 04:00 04/30/17 04:30 Lab Scanned Report REFERENCE LAB Potassium Level 3.4 L 3.4 L White Blood Count 8.7 Red Blood Count 3.32 L Hemoglobin 9.6 L Hematocrit 29.4 L Mean Corpuscular Volume 88.6 Mean Corpuscular Hemoglobin 28.9 L Mean Corpuscular Hemoglobin Concent 32.7 Red Cell Distribution Width 16.7 H Platelet Count 107 #L Mean Platelet Volume 12.2 H Neutrophils % 84.7 H Lymphocytes % 7.7 L Monocytes % 5.3 Eosinophils % 1.1 Basophils % 0.1 Nucleated Red Blood Cells % 0.0 Neutrophils # 7.4 Lymphocytes # 0.7 L Monocytes # 0.5 Eosinophils # 0.1 Basophils # 0.0 Nucleated Red Blood Cells # 0.0 Sodium Level 143 Chloride Level 115 H Carbon Dioxide Level 20 L Anion Gap 11 Blood Urea Nitrogen 13 Creatinine 0.55 L Glucose Level 123 # Calcium Level 8.6 Medications Current Medications Acetaminophen (Tylenol Liquid) 650 mg Q4 PRN GTB PAIN AND OR ELEVATED TEMP Last administered on 04/28/17 14:09; Admin Dose 650 MG; Start 04/25/17 at 23:00 Eye Lubricant (Akwa Oint) 1 applic QID BOTH EYES Last administered on 08:42; Admin Dose 1 APPLIC; Start 04/26/17 at 09:00 Bromocriptine Mesylate (Parlodel) 30 mg DAILY GTB Last administered on 08:55; Admin Dose 30 MG; Start 04/26/17 at 09:00 Chlorhexidine Gluconate (Peridex) 15 ml BID MM Last administered on 04/30/17 08:40; Admin Dose 15 ML; Start 04/26/17 at 09:00 Enoxaparin Sodium (Lovenox) 30 mg DAILY SC Last administered on 04/30/17 08:44 ; Admin Dose 30 MG; Start 04/26/17 at 09:00 Ferrous Sulfate (Feosol Liquid Cup) 300 mg BID GTB Last administered on 08:40; Admin Dose 300 MG; Start 04/26/17 at 09:00 Hydrocortisone (Cortef) 20 mg DAILY GTB Last administered on 04/30/17 08:41; Admin Dose 20 MG; Start 04/26/17 at 09:00 Ondansetron HCl (Zofran Tab) 4 mg Q8 PRN GTB NAUSEA AND/OR VOMITING; Start at 23:00 Lactobacillus Acidophilus (Florajen3 Capsule) 1 each DAILY PEG Last administered on 04/30/17 08:41; Admin Dose 1 EACH; Start 04/26/17 at 09:00 Ergocalciferol (Drisdol) 50,000 unit Q7D GTB ; Start 05/02/17 at 09:00 Ascorbic Acid (Vitamin C) 250 mg BID GTB Last administered on 04/30/17 08:41; Admin Dose 250 MG; Start 04/26/17 at 09:00 Famotidine 20 mg 20 mg BID GTB Last administered on 04/30/17 08:41; Admin Dose 20 MG; Start 04/26/17 at 09:00 Phenylephrine HCl 40 mg/Dextrose 500 ml @ 75 mls/hr TITRATE IV ; Start at 08:30 Norepinephrine/ Dextrose (Levophed/D5W) 500 ml @ 1.87 mls/hr TITRATE IV Last administered on 04/28/17 17:00; Admin Dose 3.75 MLS/HR; Start 04/26/17 at 14:30 Morphine Sulfate 2 mg 2 mg Q4H PRN IV PAIN Last administered on 04/29/17 20:05 ; Admin Dose 2 MG; Start 04/26/17 at 16:30 Potassium Chloride/Dextrose/ Sod Cl (D5-1/2ns + KCl 40 Meq) 1,000 ml @ 120 mls/ hr Q8H20M IV Last administered on 04/30/17 04:20; Admin Dose 120 MLS/HR; Start 04/29/17 at 12:30 Posaconazole 400 mg 400 mg Q8 PO Last administered on 04/30/17 05:32; Admin Dose 400 MG; Start 04/29/17 at 22:00 Meropenem/Sodium Chloride 50 ml @ 100 mls/hr Q8 IVPB Last administered on 04/30 05:32; Admin Dose 100 MLS/HR; Start 04/29/17 at 22:00 Potassium Chloride/Sodium Chloride (KCl/NS) 110 ml @ 55 mls/hr ONCE ONCE IVPB ; Start 04/30/17 at 11:30; Stop 04/30/17 at 13:29 Desmopressin Acetate (Ddavp) 0.05 mg BID GTB ; Start 04/30/17 at 21:00 Assessment/Plan Chief Complaint/Hosp Course Assessment 1. Disseminated coccidiomycosis with encephalopathy. 2. Vent dependent respiratory failure 3. Septic shock, possible adrenal insufficiency will check cortisol level. 4. Hypokalemia 5. Anemia of chronic disease 6. Likely chronic from cytopenia Recommendations 1. Continue mechanical ventilation 2. Continue tube feeding as tolerated 3. Consider increasing free water, renal recommendations 4. Replace potassium 5. DVT GI prophylaxis 6. Decrease vasopressors as tolerated Disposition Continue ICU care critical care time 40 minutes. Problems: FRANCESCA HANSEN MD, [facility] Apr 30, 2017 10:17
[2017-04-30] MEDS ORDERED: POTASSIUM CHLORIDE 20 MEQ in SOD CHLORIDE 0.9% 100 ML IVPB ONE (11:30)
--- NOTE | 2017-04-30 12:32 | CONS ---
Date/Time of Note Date/Time of Note DATE: 04/30/17 TIME: 12:23 Assessment/Plan Assessment/Plan Additional Assessment/Plan Septic shock on IV pressor Disseminated coccidiomycosis Pneumonia UTI Vent dependent respiratory failure Encephalopathy -We will continue to titrate IV pressor to maintain SBP greater than 90 and/or map above 60. Hold any antihypertensive medications. IV fluids as per our nephrology colleagues. Antibiotics as per infectious disease. Maintain potassium above 4.0 magnesium of 2.0. Consultation Date/Type/Reason Admit Date/Time Apr 25, 2017 at 12:31 Initial Consult Date 04/25/17 Type of Consultation: cv Referring Provider: HELEN CASTELLANO MD 24 HR Interval Summary Free Text/Dictation Patient seen and examined, mother at bedside Exam/Review of Systems Vital Signs Vitals Vital Signs Date Time Temp Pulse Resp B/P Pulse Ox O2 Delivery O2 Flow Rate FiO2 04/30/17 11:16 79 42 99 30 04/30/17 09:15 99/73 04/30/17 07:15 98.3 04/29/17 04:00 Mechanical Ventilator Intake and Output 04/29/17 04/29/17 04/30/17 15:00 23:00 07:00 Intake Total 960.00 ml 1432.5 ml 1997.5 ml Output Total 760 ml 1415 ml 1355 ml Balance 200.00 ml 17.5 ml 642.5 ml Exam No apparent distress Head: normocephalic Neck: other Respiratory: other (Coarse breath sounds bilaterally, no wheezing) Cardiovascular: other (S1-S2 heard), regular rate and rhythm Gastrointestinal: bowel sounds, non-tender, soft Extremities: edema (Trace) Results Result Diagram: 04/30/17 0400 04/30/17 0430 Results 24 hrs Laboratory Tests Test 04/29/17 12:32 04/29/17 18:15 04/30/17 04:00 04/30/17 04:30 Lab Scanned Report REFERENCE LAB Potassium Level 3.4 L 3.4 L White Blood Count 8.7 Red Blood Count 3.32 L Hemoglobin 9.6 L Hematocrit 29.4 L Mean Corpuscular Volume 88.6 Mean Corpuscular Hemoglobin 28.9 L Mean Corpuscular Hemoglobin Concent 32.7 Red Cell Distribution Width 16.7 H Platelet Count 107 #L Mean Platelet Volume 12.2 H Neutrophils % 84.7 H Lymphocytes % 7.7 L Monocytes % 5.3 Eosinophils % 1.1 Basophils % 0.1 Nucleated Red Blood Cells % 0.0 Neutrophils # 7.4 Lymphocytes # 0.7 L Monocytes # 0.5 Eosinophils # 0.1 Basophils # 0.0 Nucleated Red Blood Cells # 0.0 Sodium Level 143 Chloride Level 115 H Carbon Dioxide Level 20 L Anion Gap 11 Blood Urea Nitrogen 13 Creatinine 0.55 L Glucose Level 123 # Calcium Level 8.6 Medications Medications Current Medications Acetaminophen (Tylenol Liquid) 650 mg Q4 PRN GTB PAIN AND OR ELEVATED TEMP Last administered on 04/28/17 14:09; Admin Dose 650 MG; Start 04/25/17 at 23:00 Eye Lubricant (Akwa Oint) 1 applic QID BOTH EYES Last administered on 08:42; Admin Dose 1 APPLIC; Start 04/26/17 at 09:00 Bromocriptine Mesylate (Parlodel) 30 mg DAILY GTB Last administered on 08:55; Admin Dose 30 MG; Start 04/26/17 at 09:00 Chlorhexidine Gluconate (Peridex) 15 ml BID MM Last administered on 04/30/17 08:40; Admin Dose 15 ML; Start 04/26/17 at 09:00 Enoxaparin Sodium (Lovenox) 30 mg DAILY SC Last administered on 04/30/17 08:44 ; Admin Dose 30 MG; Start 04/26/17 at 09:00 Ferrous Sulfate (Feosol Liquid Cup) 300 mg BID GTB Last administered on 08:40; Admin Dose 300 MG; Start 04/26/17 at 09:00 Hydrocortisone (Cortef) 20 mg DAILY GTB Last administered on 04/30/17 08:41; Admin Dose 20 MG; Start 04/26/17 at 09:00 Ondansetron HCl (Zofran Tab) 4 mg Q8 PRN GTB NAUSEA AND/OR VOMITING; Start at 23:00 Lactobacillus Acidophilus (Florajen3 Capsule) 1 each DAILY PEG Last administered on 04/30/17 08:41; Admin Dose 1 EACH; Start 04/26/17 at 09:00 Ergocalciferol (Drisdol) 50,000 unit Q7D GTB ; Start 05/02/17 at 09:00 Ascorbic Acid (Vitamin C) 250 mg BID GTB Last administered on 04/30/17 08:41; Admin Dose 250 MG; Start 04/26/17 at 09:00 Famotidine 20 mg 20 mg BID GTB Last administered on 04/30/17 08:41; Admin Dose 20 MG; Start 04/26/17 at 09:00 Phenylephrine HCl 40 mg/Dextrose 500 ml @ 75 mls/hr TITRATE IV ; Start at 08:30 Norepinephrine/ Dextrose (Levophed/D5W) 500 ml @ 1.87 mls/hr TITRATE IV Last administered on 04/30/17 11:37; Admin Dose 7.5 MLS/HR; Start 04/26/17 at 14:30 Morphine Sulfate 2 mg 2 mg Q4H PRN IV PAIN Last administered on 04/29/17 20:05 ; Admin Dose 2 MG; Start 04/26/17 at 16:30 Potassium Chloride/Dextrose/ Sod Cl (D5-1/2ns + KCl 40 Meq) 1,000 ml @ 120 mls/ hr Q8H20M IV Last administered on 04/30/17 04:20; Admin Dose 120 MLS/HR; Start 04/29/17 at 12:30 Posaconazole 400 mg 400 mg Q8 PO Last administered on 04/30/17 05:32; Admin Dose 400 MG; Start 04/29/17 at 22:00 Meropenem/Sodium Chloride 50 ml @ 100 mls/hr Q8 IVPB Last administered on 04/30 05:32; Admin Dose 100 MLS/HR; Start 04/29/17 at 22:00 Potassium Chloride/Sodium Chloride (KCl/NS) 110 ml @ 55 mls/hr ONCE ONCE IVPB Last administered on 04/30/17 11:39; Admin Dose 55 MLS/HR; Start 04/30/17 at 11:30; Stop 04/30/17 at 13:29 Desmopressin Acetate (Ddavp) 0.05 mg BID GTB ; Start 04/30/17 at 21:00 Oscar Awan DO Apr 30, 2017 12:32
--- NOTE | 2017-04-30 13:40 | PN ---
Date/Time of Note Date/Time of Note DATE: 04/30/17 TIME: 13:31 Assessment/Plan VTE Prophylaxis VTE Prophylaxis Intervention: SCD's Lines/Catheters IV [facility]ter Type [facility] PICC Line Central line still needed: Yes Urinary Cath still in place: Yes Reason Cath still needed: urinary retention Assessment/Plan Chief Complaint/Hosp Course No fever today, continues on low dose of Levophed gtt for hemodynamic support, fluctuating residual per G-tube, continue to monitor G-tube residual, aspiration precaution. Assessment/Plan - Septic shock due to bilateral pneumonia and UTI. Continue antibiotics per ID. Dr Brown is following in infection disease consultation. 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 - Acute kidney injury, resolving. - Hypernatremia, resolved. Dr Sorensen is following in nephrology consultation. - Hypokalemia, continue k protocol. - Pancytopenia most likely secondary to sepsis - Dysphagia with PEG. Continue tube G-tube feeding - VDRF with tracheostomy - Hydrocephalus, status post [employer] shunt. - Polyuria, improving. Further recommendations based on clinical course. Plan of care discussed with Dr. Dozier Problems: Exam/Review of Systems Vital Signs Vitals Vital Signs Date Time Temp Pulse Resp B/P Pulse Ox O2 Delivery O2 Flow Rate FiO2 04/30/17 11:16 79 42 99 30 04/30/17 09:15 99/73 04/30/17 07:15 98.3 04/29/17 04:00 Mechanical Ventilator Intake and Output 04/29/17 04/29/17 04/30/17 15:00 23:00 07:00 Intake Total 960.00 ml 1432.5 ml 1997.5 ml Output Total 760 ml 1415 ml 1355 ml Balance 200.00 ml 17.5 ml 642.5 ml Exam Constitutional: non-verbal Neck: other (Tracheostomy), supple Respiratory: diminished breath sounds Cardiovascular: nl pulses Gastrointestinal: non-tender, other (G-tube), soft Extremities: normal pulses Neurological: lethargic Results Result Diagram: 04/30/17 0400 04/30/17 0430 Results 24 hrs Laboratory Tests Test 04/29/17 18:15 04/30/17 04:00 04/30/17 04:30 Potassium Level 3.4 L 3.4 L White Blood Count 8.7 Red Blood Count 3.32 L Hemoglobin 9.6 L Hematocrit 29.4 L Mean Corpuscular Volume 88.6 Mean Corpuscular Hemoglobin 28.9 L Mean Corpuscular Hemoglobin Concent 32.7 Red Cell Distribution Width 16.7 H Platelet Count 107 #L Mean Platelet Volume 12.2 H Neutrophils % 84.7 H Lymphocytes % 7.7 L Monocytes % 5.3 Eosinophils % 1.1 Basophils % 0.1 Nucleated Red Blood Cells % 0.0 Neutrophils # 7.4 Lymphocytes # 0.7 L Monocytes # 0.5 Eosinophils # 0.1 Basophils # 0.0 Nucleated Red Blood Cells # 0.0 Sodium Level 143 Chloride Level 115 H Carbon Dioxide Level 20 L Anion Gap 11 Blood Urea Nitrogen 13 Creatinine 0.55 L Glucose Level 123 # Calcium Level 8.6 Medications Medications Current Medications Acetaminophen (Tylenol Liquid) 650 mg Q4 PRN GTB PAIN AND OR ELEVATED TEMP Last administered on 04/28/17 14:09; Admin Dose 650 MG; Start 04/25/17 at 23:00 Eye Lubricant (Akwa Oint) 1 applic QID BOTH EYES Last administered on 08:42; Admin Dose 1 APPLIC; Start 04/26/17 at 09:00 Bromocriptine Mesylate (Parlodel) 30 mg DAILY GTB Last administered on 08:55; Admin Dose 30 MG; Start 04/26/17 at 09:00 Chlorhexidine Gluconate (Peridex) 15 ml BID MM Last administered on 04/30/17 08:40; Admin Dose 15 ML; Start 04/26/17 at 09:00 Enoxaparin Sodium (Lovenox) 30 mg DAILY SC Last administered on 04/30/17 08:44 ; Admin Dose 30 MG; Start 04/26/17 at 09:00 Ferrous Sulfate (Feosol Liquid Cup) 300 mg BID GTB Last administered on 08:40; Admin Dose 300 MG; Start 04/26/17 at 09:00 Hydrocortisone (Cortef) 20 mg DAILY GTB Last administered on 04/30/17 08:41; Admin Dose 20 MG; Start 04/26/17 at 09:00 Ondansetron HCl (Zofran Tab) 4 mg Q8 PRN GTB NAUSEA AND/OR VOMITING; Start at 23:00 Lactobacillus Acidophilus (Florajen3 Capsule) 1 each DAILY PEG Last administered on 04/30/17 08:41; Admin Dose 1 EACH; Start 04/26/17 at 09:00 Ergocalciferol (Drisdol) 50,000 unit Q7D GTB ; Start 05/02/17 at 09:00 Ascorbic Acid (Vitamin C) 250 mg BID GTB Last administered on 04/30/17 08:41; Admin Dose 250 MG; Start 04/26/17 at 09:00 Famotidine 20 mg 20 mg BID GTB Last administered on 04/30/17 08:41; Admin Dose 20 MG; Start 04/26/17 at 09:00 Phenylephrine HCl 40 mg/Dextrose 500 ml @ 75 mls/hr TITRATE IV ; Start at 08:30 Norepinephrine/ Dextrose (Levophed/D5W) 500 ml @ 1.87 mls/hr TITRATE IV Last administered on 04/30/17 11:37; Admin Dose 7.5 MLS/HR; Start 04/26/17 at 14:30 Morphine Sulfate 2 mg 2 mg Q4H PRN IV PAIN Last administered on 04/29/17 20:05 ; Admin Dose 2 MG; Start 04/26/17 at 16:30 Potassium Chloride/Dextrose/ Sod Cl (D5-1/2ns + KCl 40 Meq) 1,000 ml @ 120 mls/ hr Q8H20M IV Last administered on 04/30/17 04:20; Admin Dose 120 MLS/HR; Start 04/29/17 at 12:30 Posaconazole 400 mg 400 mg Q8 PO Last administered on 04/30/17 05:32; Admin Dose 400 MG; Start 04/29/17 at 22:00 Meropenem/Sodium Chloride (Merrem 1 Gm/50 ml (Pmx)) 50 ml @ 100 mls/hr Q8 IVPB Last administered on 04/30/17 05:32; Admin Dose 100 MLS/HR; Start 04/29/17 at 22:00 Desmopressin Acetate (Ddavp) 0.05 mg BID GTB ; Start 04/30/17 at 21:00 MANDIE DAVE Apr 30, 2017 13:40
[2017-04-30] MEDS: morphine 2 MG INJ IV PRN (13:44)
--- NOTE | 2017-04-30 17:24 | CONS ---
Date/Time of Note Date/Time of Note DATE: 04/30/17 TIME: 17:21 Assessment/Plan Assessment/Plan Additional Assessment/Plan 1. Non Oliguric Acute kidney injury due to septic shock 2. Hypernaremia 3. Septic shock on levophed 4. Acute on chronic resp failure s/p Tracheostomy- on ventilator, pulmonary has been following 5. H/o Fungal meningitis, currently comatose 6. H/O Right sided FORENSIC INVESTIGATOR shunt 7. H/o G tube placement 8. [facility] 9. Polyuria Plan: continue D5W with 40mEQ KCL at 100 ml/hr, K replacement as per protocol, give extra KCl 20mEQ IV x 1 today levophed for bP support Na improved to normal, Cr improved to normal decrease DDAVP to 0.05 mg BID ID, pulmonary has been following will follow up Consultation Date/Type/Reason Admit Date/Time Apr 25, 2017 at 12:31 Initial Consult Date 04/25/17 Type of Consultation: NEPHROLOGY Referring Provider: HELEN CASTELLANO MD 24 HR Interval Summary Free Text/Dictation pt remains intubted, BP labile, on levophed, K still low Exam/Review of Systems Vital Signs Vitals Vital Signs Date Time Temp Pulse Resp B/P Pulse Ox O2 Delivery O2 Flow Rate FiO2 04/30/17 16:45 78 31 105/75 100 04/30/17 16:15 97.9 04/30/17 15:28 30 04/29/17 04:00 Mechanical Ventilator Intake and Output 04/29/17 04/29/17 04/30/17 15:00 23:00 07:00 Intake Total 960.00 ml 1432.5 ml 2125.0 ml Output Total 760 ml 1415 ml 1355 ml Balance 200.00 ml 17.5 ml 770.0 ml Exam Constitutional: non-verbal ENMT: other ( tracheostomy ) Respiratory: congested cough, crackles/rales, diminished breath sounds Cardiovascular: other (tachycardia ), regular rate and rhythm Gastrointestinal: non-tender, other, soft Neurological: lethargic, other (Uncooperative for exam ) Skin: nl turgor Results Result Diagram: 04/30/17 0400 04/30/17 0430 Results 24 hrs Laboratory Tests Test 04/29/17 18:15 04/30/17 04:00 04/30/17 04:30 Potassium Level 3.4 L 3.4 L White Blood Count 8.7 Red Blood Count 3.32 L Hemoglobin 9.6 L Hematocrit 29.4 L Mean Corpuscular Volume 88.6 Mean Corpuscular Hemoglobin 28.9 L Mean Corpuscular Hemoglobin Concent 32.7 Red Cell Distribution Width 16.7 H Platelet Count 107 #L Mean Platelet Volume 12.2 H Neutrophils % 84.7 H Lymphocytes % 7.7 L Monocytes % 5.3 Eosinophils % 1.1 Basophils % 0.1 Nucleated Red Blood Cells % 0.0 Neutrophils # 7.4 Lymphocytes # 0.7 L Monocytes # 0.5 Eosinophils # 0.1 Basophils # 0.0 Nucleated Red Blood Cells # 0.0 Sodium Level 143 Chloride Level 115 H Carbon Dioxide Level 20 L Anion Gap 11 Blood Urea Nitrogen 13 Creatinine 0.55 L Glucose Level 123 # Calcium Level 8.6 Medications Medications Current Medications Acetaminophen (Tylenol Liquid) 650 mg Q4 PRN GTB PAIN AND OR ELEVATED TEMP Last administered on 04/28/17 14:09; Admin Dose 650 MG; Start 04/25/17 at 23:00 Eye Lubricant (Akwa Oint) 1 applic QID BOTH EYES Last administered on 13:36; Admin Dose 1 APPLIC; Start 04/26/17 at 09:00 Bromocriptine Mesylate (Parlodel) 30 mg DAILY GTB Last administered on 08:55; Admin Dose 30 MG; Start 04/26/17 at 09:00 Chlorhexidine Gluconate (Peridex) 15 ml BID MM Last administered on 04/30/17 08:40; Admin Dose 15 ML; Start 04/26/17 at 09:00 Enoxaparin Sodium (Lovenox) 30 mg DAILY SC Last administered on 04/30/17 08:44 ; Admin Dose 30 MG; Start 04/26/17 at 09:00 Ferrous Sulfate (Feosol Liquid Cup) 300 mg BID GTB Last administered on 08:40; Admin Dose 300 MG; Start 04/26/17 at 09:00 Hydrocortisone (Cortef) 20 mg DAILY GTB Last administered on 04/30/17 08:41; Admin Dose 20 MG; Start 04/26/17 at 09:00 Ondansetron HCl (Zofran Tab) 4 mg Q8 PRN GTB NAUSEA AND/OR VOMITING; Start at 23:00 Lactobacillus Acidophilus (Florajen3 Capsule) 1 each DAILY PEG Last administered on 04/30/17 08:41; Admin Dose 1 EACH; Start 04/26/17 at 09:00 Ergocalciferol (Drisdol) 50,000 unit Q7D GTB ; Start 05/02/17 at 09:00 Ascorbic Acid (Vitamin C) 250 mg BID GTB Last administered on 04/30/17 08:41; Admin Dose 250 MG; Start 04/26/17 at 09:00 Famotidine 20 mg 20 mg BID GTB Last administered on 04/30/17 08:41; Admin Dose 20 MG; Start 04/26/17 at 09:00 Phenylephrine HCl 40 mg/Dextrose 500 ml @ 75 mls/hr TITRATE IV ; Start at 08:30 Norepinephrine/ Dextrose (Levophed/D5W) 500 ml @ 1.87 mls/hr TITRATE IV Last administered on 04/30/17 11:37; Admin Dose 7.5 MLS/HR; Start 04/26/17 at 14:30 Morphine Sulfate 2 mg 2 mg Q4H PRN IV PAIN Last administered on 04/30/17 13:44 ; Admin Dose 2 MG; Start 04/26/17 at 16:30 Potassium Chloride/Dextrose/ Sod Cl 1,000 ml @ 120 mls/hr Q8H20M IV Last administered on 04/30/17 15:25; Admin Dose 120 MLS/HR; Start 04/29/17 at 12:30 Meropenem/Sodium Chloride (Merrem 1 Gm/50 ml (Pmx)) 50 ml @ 100 mls/hr Q8 IVPB Last administered on 04/30/17 13:35; Admin Dose 100 MLS/HR; Start 04/29/17 at 22:00 Desmopressin Acetate (Ddavp) 0.05 mg BID GTB ; Start 04/30/17 at 21:00 Posaconazole (Noxafil) 400 mg Q8 PO ; Start 04/30/17 at 22:00 FARHAT RUBIO MD Apr 30, 2017 17:24
[2017-05-01] VITALS (101 sets, daily range): BP systolic 89–129; BP diastolic 49–84; PULSE 73–113; RESP 18–38
[2017-05-01] MEDS: D5W-0.45 NACL + KCL 40 MEQ 1,000 ML IV SCH ×4 (02:38→20:58)
[2017-05-01 05:19] LABS: BASOPHILS % 0.3 % (0.0-2.0); EOSINOPHILS # 0.1 10^3/ul (0.0-0.5); EOSINOPHILS % 1.1 % (0.0-7.0); HEMATOCRIT 29.4 % (42.0-52.0); HEMOGLOBIN 9.6 g/dl (14.0-18.0); LYMPHOCYTES # 0.8 10^3/ul (0.8-2.9); LYMPHOCYTES % 12.6 % (15.0-51.0); MEAN CORPUSCULAR HGB CONC 32.7 g/dl (32.0-37.0); MEAN CORPUSCULAR VOLUME 88.8 fl (82.0-101.0); MEAN PLATELET VOLUME 11.4 fl (7.4-10.4); MONOCYTE # 0.7 10^3/ul (0.3-0.9); MONOCYTES % 10.5 % (0.0-11.0); NEUTROPHIL # 4.9 10^3/ul (1.6-7.5); NEUTROPHILS % 73.8 % (39.0-77.0); PLATELET COUNT 172 10^3/UL (140-415); RED BLOOD COUNT 3.31 10^6/ul (4.70-6.10); RED CELL DISTRIBUTION WIDTH 16.4 % (11.5-14.5); WHITE BLOOD COUNT 6.6 10^3/ul (4.8-10.8)
[2017-05-01] MEDS: MEROPENEM 1 GM/50ML(PMX) 50 ML IVPB SCH ×3 (05:40→21:24)
[2017-05-01] MEDS: POSACONAZOLE PO SCH ×3 (05:40→21:24)
[2017-05-01 05:45] LABS: CALCIUM 9.3 mg/dl (8.4-10.2); CREATININE 0.49 mg/dl (0.61-1.24); POTASSIUM 3.5 mmol/L (3.5-5.1)
[2017-05-01] MEDS: POTASSIUM CHLORIDE 50 ML IVPB PRN ×2 (09:31→11:41)
[2017-05-01] MEDS: HYDROCORTISONE 20 MG TAB GTB SCH (09:35)
[2017-05-01] MEDS: ACYCLOVIR 400 MG TAB PEG SCH ×5 (09:35→21:24)
[2017-05-01] MEDS: CHLORHEXIDINE GLUCONATE 15 ML UD CUP MM SCH ×2 (09:35→20:55)
[2017-05-01] MEDS: FERROUS SULFATE 60 MG/ML 5ML CUP GTB SCH ×2 (09:35→20:55)
[2017-05-01] MEDS: DESMOPRESSIN 0.1 MG TAB GTB SCH (09:35)
[2017-05-01] MEDS: L ACIDOPHIL/B LACTIS/B LONGUM CAPSULE PEG SCH (09:35)
[2017-05-01] MEDS: OCULAR LUBRICANT 3.5 GM OPH OINT BOTH EYES SCH ×4 (09:35→20:55)
[2017-05-01] MEDS: ASCORBIC ACID 250 MG TAB GTB SCH ×2 (09:35→20:55)
[2017-05-01] MEDS: BROMOCRIPTINE 2.5 MG TAB GTB SCH (09:36)
[2017-05-01] MEDS: FAMOTIDINE 20 MG TAB GTB SCH ×2 (09:37→20:55)
[2017-05-01] MEDS: ACETAMINOPHEN 650MG/20.3ML CUP GTB PRN (09:37)
[2017-05-01] MEDS: ENOXAPARIN 30 MG/0.3 ML SYG SC SCH (09:38)
--- NOTE | 2017-05-01 10:09 | CONS ---
Date/Time of Note Date/Time of Note DATE: 05/01/17 TIME: 10:07 Assessment/Plan Assessment/Plan Chief Complaint/Hosp Course assessment/impression - septic shock due to pneumonia and UTI - UTI due to ESBL+E. coli - b/l pneumonia due to klebsiella, EBL+E. coli - herpes labialis - h/o disseminated coccidioides mycosis infection, meningitis. Cocci CF 1:16 on 04/26/2017 - s/p VPS placement - VDRF s/p tracheostomy - PEG dependet status - pancytopenia, due to septic shock on admission - thrombocytopenia - leukocytosis likely secondary to septic shock and steroid recommendations - pending results: posaconazole trough level 04/27/2017 - continue meropenem (04/29/2017-) - continue posaconazole to 400 mg q8hrs and repeat the level on 05/07/2017 (dose increased on 04/29/2017 according to the advise from JOE Galeano at neurosurgery department at [facility] informing us that Pt's posaconazole level had been low at [facility]) - continue acyclovir for herpes labialis (04/27/2017-), 7 days management d/w Pt's RN and father the critical care time I took to care for this Pt today day was from 0930 to 1000 Problems: Consultation Date/Type/Reason Admit Date/Time Apr 25, 2017 at 12:31 Initial Consult Date 04/25/17 Type of Consultation: ID Referring Provider: HELEN CASTELLANO MD 24 HR Interval Summary Subjective hx not possible: pt non-verbal, pt critical, pt critical status Exam/Review of Systems Vital Signs Vitals Vital Signs Date Time Temp Pulse Resp B/P Pulse Ox O2 Delivery O2 Flow Rate FiO2 05/01/17 10:00 103 32 111/72 98 Mechanical Ventilator 05/01/17 08:00 99.7 05/01/17 05:08 30 Intake and Output 04/30/17 04/30/17 05/01/17 15:00 23:00 07:00 Intake Total 1587.53 ml 1137.65 ml 1320.12 ml Output Total 1330 ml 1500 ml 1025 ml Balance 257.53 ml -362.35 ml 295.12 ml Exam Constitutional: frail, non-verbal Psych: confusion Head: normocephalic Eyes: nl conjunctiva, nl sclera, other (L ptosis) ENMT: nl external ears & nose, nl nasal mucosa & septum Neck: other (trach) Respiratory: crackles/rales Cardiovascular: nl pulses, regular rate and rhythm Gastrointestinal: non-tender, other (GT), soft Genitourinary - Male: other (FC) Musculoskeletal: nl extremities to inspection Extremities: No edema Neurological: confused, lethargic Skin: nl turgor Results Result Diagram: 05/01/17 0430 05/01/17 0430 Results 24 hrs Laboratory Tests Test 04/30/17 17:30 05/01/17 04:30 Potassium Level 3.6 3.5 White Blood Count 6.6 # Red Blood Count 3.31 L Hemoglobin 9.6 L Hematocrit 29.4 L Mean Corpuscular Volume 88.8 Mean Corpuscular Hemoglobin 29.0 Mean Corpuscular Hemoglobin Concent 32.7 Red Cell Distribution Width 16.4 H Platelet Count 172 # Mean Platelet Volume 11.4 H Neutrophils % 73.8 Lymphocytes % 12.6 L Monocytes % 10.5 Eosinophils % 1.1 Basophils % 0.3 Nucleated Red Blood Cells % 0.0 Neutrophils # 4.9 Lymphocytes # 0.8 Monocytes # 0.7 Eosinophils # 0.1 Basophils # 0.0 Nucleated Red Blood Cells # 0.0 Sodium Level 144 Chloride Level 113 H Carbon Dioxide Level 24 Anion Gap 11 Blood Urea Nitrogen 10 Creatinine 0.49 L Glucose Level 137 Calcium Level 9.3 Random Cortisol 12.5 Medications Medications Current Medications Acetaminophen (Tylenol Liquid) 650 mg Q4 PRN GTB PAIN AND OR ELEVATED TEMP Last administered on 05/01/17 09:37; Admin Dose 650 MG; Start 04/25/17 at 23:00 Eye Lubricant (Akwa Oint) 1 applic QID BOTH EYES Last administered on 09:35; Admin Dose 1 APPLIC; Start 04/26/17 at 09:00 Bromocriptine Mesylate (Parlodel) 30 mg DAILY GTB Last administered on 09:36; Admin Dose 30 MG; Start 04/26/17 at 09:00 Chlorhexidine Gluconate (Peridex) 15 ml BID MM Last administered on 05/01/17 09:35; Admin Dose 15 ML; Start 04/26/17 at 09:00 Enoxaparin Sodium (Lovenox) 30 mg DAILY SC Last administered on 05/01/17 09:38 ; Admin Dose 30 MG; Start 04/26/17 at 09:00 Ferrous Sulfate (Feosol Liquid Cup) 300 mg BID GTB Last administered on 09:35; Admin Dose 300 MG; Start 04/26/17 at 09:00 Hydrocortisone (Cortef) 20 mg DAILY GTB Last administered on 05/01/17 09:35; Admin Dose 20 MG; Start 04/26/17 at 09:00 Ondansetron HCl (Zofran Tab) 4 mg Q8 PRN GTB NAUSEA AND/OR VOMITING; Start at 23:00 Lactobacillus Acidophilus (Florajen3 Capsule) 1 each DAILY PEG Last administered on 05/01/17 09:35; Admin Dose 1 EACH; Start 04/26/17 at 09:00 Ergocalciferol (Drisdol) 50,000 unit Q7D GTB ; Start 05/02/17 at 09:00 Ascorbic Acid (Vitamin C) 250 mg BID GTB Last administered on 05/01/17 09:35; Admin Dose 250 MG; Start 04/26/17 at 09:00 Famotidine 20 mg 20 mg BID GTB Last administered on 05/01/17 09:37; Admin Dose 20 MG; Start 04/26/17 at 09:00 Phenylephrine HCl 40 mg/Dextrose 500 ml @ 75 mls/hr TITRATE IV ; Start at 08:30 Norepinephrine/ Dextrose (Levophed/D5W) 500 ml @ 1.87 mls/hr TITRATE IV Last administered on 04/30/17 11:37; Admin Dose 7.5 MLS/HR; Start 04/26/17 at 14:30 Morphine Sulfate 2 mg 2 mg Q4H PRN IV PAIN Last administered on 04/30/17 13:44 ; Admin Dose 2 MG; Start 04/26/17 at 16:30 Potassium Chloride/Dextrose/ Sod Cl 1,000 ml @ 120 mls/hr Q8H20M IV Last administered on 05/01/17 02:38; Admin Dose 120 MLS/HR; Start 04/29/17 at 12:30 Meropenem/Sodium Chloride (Merrem 1 Gm/50 ml (Pmx)) 50 ml @ 100 mls/hr Q8 IVPB Last administered on 05/01/17 05:40; Admin Dose 100 MLS/HR; Start 04/29/17 at 22:00 Desmopressin Acetate (Ddavp) 0.05 mg BID GTB Last administered on 05/01/17 09: 35; Admin Dose 0.05 MG; Start 04/30/17 at 21:00 Posaconazole (Noxafil) 400 mg Q8 PO Last administered on 05/01/17 05:40; Admin Dose 400 MG; Start 04/30/17 at 22:00 ELENI EVANS M.D. May 01, 2017 10:09
--- NOTE | 2017-05-01 10:28 | PN ---
Date/Time of Note Date/Time of Note DATE: 04/29/17 TIME: 10:57 Assessment/Plan VTE Prophylaxis VTE Prophylaxis Intervention: other Lines/Catheters [facility] ([facility] PICC Line Central line still needed: Yes Urinary Cath still in place: Yes Reason Cath still needed: urinary retention Assessment/Plan Assessment/Plan 1. Non Oliguric Acute kidney injury due to septic shock 2. Hypernatremia- resolved - Hypokalemia- resolved 3. Septic shock on levophed 4. Acute on chronic resp failure s/p Tracheostomy- on ventilator, pulmonary has been following 5. H/o Fungal meningitis, currently comatose 6. H/O Right sided HONEY BLENDER shunt 7. H/o G tube placement 8. [facility] 9. Polyuria - Maintain UO wnl- on Desmopressin 0.05 mg GT bid- dw dr Mar Sorensen- will change desmopressin 0,05 mg gt daily Plan: continue D5W with 40mEQ KCL at 100 ml/hr levophed for bP support Na improved to normal, Cr improved to normal decrease DDAVP to 0.05 mg daily ID, pulmonary has been following will follow up Total critical care time spent 40 mins.Further recommendations based on clinical course. Plan of care discussed with Dr. Mar Sorensen Subjective 24 Hr Interval Summary Free Text/Dictation remains on vent,on Desmopressin- makes urine-4925 m/24 hr, on GT feeding, afebrile, dw staff Subjective hx not possible: pt non-verbal, pt critical Constitutional: requiring IVF, requiring O2 Exam/Review of Systems Vital Signs Vitals Vital Signs Date Time Temp Pulse Resp B/P Pulse Ox O2 Delivery O2 Flow Rate FiO2 04/29/17 10:45 71 30 93/61 97 04/29/17 08:00 30 04/29/17 07:15 97.4 04/29/17 04:00 Mechanical Ventilator Intake and Output 04/28/17 04/28/17 04/29/17 15:00 23:00 07:00 Intake Total 674.96 ml 909.37 ml 1880.75 ml Output Total 1500 ml 1075 ml 535 ml Balance -825.04 ml -165.63 ml 1345.75 ml Exam Constitutional: frail, non-verbal Respiratory: diminished breath sounds, other (trach intact) Cardiovascular: nl pulses, regular rate and rhythm Gastrointestinal: other (gt intact), soft Musculoskeletal: nl extremities to inspection Extremities: normal pulses Neurological: unresponsive Results Result Diagram: 04/29/17 0345 04/29/17 0345 Results 24 hrs Laboratory Tests Test 04/28/17 13:56 04/28/17 14:55 04/28/17 21:53 04/29/17 03:45 Sodium Level 146 H 140 Potassium Level 3.4 L 4.9 2.7 #*L Chloride Level 120 H 110 # Carbon Dioxide Level 23 20 L Anion Gap 6 L 13 # Blood Urea Nitrogen 18 16 Creatinine 0.72 0.58 L Glucose Level 137 307 #H Calcium Level 9.7 8.9 Lactic Acid Level 1.6 Vancomycin Level Trough 17.1 White Blood Count 10.4 Red Blood Count 3.03 L Hemoglobin 9.1 L Hematocrit 27.4 L Mean Corpuscular Volume 90.4 Mean Corpuscular Hemoglobin 30.0 Mean Corpuscular Hemoglobin Concent 33.2 Red Cell Distribution Width 16.7 H Platelet Count 45 L Mean Platelet Volume 13.0 #H Neutrophils % 87.2 H Lymphocytes % 5.8 L Monocytes % 4.4 Eosinophils % 1.9 Basophils % 0.2 Nucleated Red Blood Cells % 0.0 Neutrophils # 9.1 H Lymphocytes # 0.6 L Monocytes # 0.5 Eosinophils # 0.2 Basophils # 0.0 Nucleated Red Blood Cells # 0.0 Test 04/29/17 05:22 Lab Scanned Report BLOOD TRANSFUSION Medications Medications Current Medications Posaconazole 400 mg 400 mg BID PO Last administered on 04/29/17 07:54; Admin Dose 400 MG; Start 04/25/17 at 19:00 Aztreonam (Azactam 1gm/NS (Pmx)) 50 ml @ 100 mls/hr Q12 IVPB Last administered on 04/29/17 07:52; Admin Dose 100 MLS/HR; Start 04/25/17 at 18:30 Vancomycin HCl (Vanco Iv Per Pharmacy) PER PHARMACY DOSING NOTE XX ; Start 04/25 at 18:30 Acetaminophen (Tylenol Liquid) 650 mg Q4 PRN GTB PAIN AND OR ELEVATED TEMP Last administered on 04/28/17 14:09; Admin Dose 650 MG; Start 04/25/17 at 23:00 Eye Lubricant (Akwa Oint) 1 applic QID BOTH EYES Last administered on 10:14; Admin Dose 1 APPLIC; Start 04/26/17 at 09:00 Bromocriptine Mesylate (Parlodel) 30 mg DAILY GTB Last administered on 07:52; Admin Dose 30 MG; Start 04/26/17 at 09:00 Chlorhexidine Gluconate (Peridex) 15 ml BID MM Last administered on 04/29/17 07:53; Admin Dose 15 ML; Start 04/26/17 at 09:00 Enoxaparin Sodium (Lovenox) 30 mg DAILY SC Last administered on 04/29/17 07:55 ; Admin Dose 30 MG; Start 04/26/17 at 09:00 Ferrous Sulfate (Feosol Liquid Cup) 300 mg BID GTB Last administered on 07:53; Admin Dose 300 MG; Start 04/26/17 at 09:00 Hydrocortisone (Cortef) 20 mg DAILY GTB Last administered on 04/29/17 07:53; Admin Dose 20 MG; Start 04/26/17 at 09:00 Ondansetron HCl (Zofran Tab) 4 mg Q8 PRN GTB NAUSEA AND/OR VOMITING; Start at 23:00 Lactobacillus Acidophilus (Florajen3 Capsule) 1 each DAILY PEG Last administered on 04/29/17 07:53; Admin Dose 1 EACH; Start 04/26/17 at 09:00 Ergocalciferol (Drisdol) 50,000 unit Q7D GTB ; Start 05/02/17 at 09:00 Ascorbic Acid (Vitamin C) 250 mg BID GTB Last administered on 04/29/17 07:53; Admin Dose 250 MG; Start 04/26/17 at 09:00 Famotidine 20 mg 20 mg BID GTB Last administered on 04/29/17 07:53; Admin Dose 20 MG; Start 04/26/17 at 09:00 Phenylephrine HCl 40 mg/Dextrose 500 ml @ 75 mls/hr TITRATE IV ; Start at 08:30 Norepinephrine/ Dextrose (Levophed/D5W) 500 ml @ 1.87 mls/hr TITRATE IV Last administered on 04/28/17 17:00; Admin Dose 3.75 MLS/HR; Start 04/26/17 at 14:30 Morphine Sulfate 2 mg 2 mg Q4H PRN IV PAIN Last administered on 04/28/17 08:59 ; Admin Dose 2 MG; Start 04/26/17 at 16:30 Vancomycin HCl 100 ml @ 100 mls/hr Q8H IVPB Last administered on 04/29/17 05: 58; Admin Dose 100 MLS/HR; Start 04/27/17 at 14:30 Piperacillin Sod/ Tazobactam Sod (Zosyn 3.375gm/ 100 ml (Pmx)) 100 ml @ 200 mls /hr Q8 IVPB Last administered on 04/29/17 05:25; Admin Dose 200 MLS/HR; Start 04/27/17 at 14:00 Desmopressin Acetate 0.1 mg 0.1 mg BID GTB Last administered on 04/29/17 07:53 ; Admin Dose 0.1 MG; Start 04/27/17 at 21:00 Potassium Chloride/Dextrose (KCl/D5W) 1,010 ml @ 100 mls/hr Q10H6M IV Last administered on 04/29/17 02:01; Admin Dose 100 MLS/HR; Start 04/28/17 at 14:26 BATSHEVA MCKEON Apr 29, 2017 11:14
--- NOTE | 2017-05-01 10:38 | PN ---
Date/Time of Note Date/Time of Note DATE: 05/01/17 TIME: 10:37 Assessment/Plan VTE Prophylaxis VTE Prophylaxis Intervention: other Lines/Catheters IV Catheter Type (from Nrs): PICC Line Central line still needed: Yes Urinary Cath still in place: Yes Reason Cath still needed: skin wounds contaminated by urine Assessment/Plan Chief Complaint/Hosp Course - Septic shock due to bilateral pneumonia and UTI. Continue antibiotics per ID. Dr Brown is following in infection disease consultation. 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 - Acute kidney injury, resolving. - Hypernatremia, resolved. Dr Sorensen is following in nephrology consultation. - Hypokalemia, continue k protocol. - Pancytopenia most likely secondary to sepsis - Dysphagia with PEG. Continue tube G-tube feeding - VDRF with tracheostomy - Hydrocephalus, status post W[employer] HARNESS DESIGN ENGINEER shunt. - Polyuria, improving. Problems: Subjective 24 Hr Interval Summary Free Text/Dictation Patient with eyes open but not responsive to voice, on trach Exam/Review of Systems Vital Signs Vitals Vital Signs Date Time Temp Pulse Resp B/P Pulse Ox O2 Delivery O2 Flow Rate FiO2 05/01/17 10:15 96 37 106/70 100 05/01/17 10:00 Mechanical Ventilator 05/01/17 08:05 30 05/01/17 08:00 99.7 Intake and Output 04/30/17 04/30/17 05/01/17 15:00 23:00 07:00 Intake Total 1587.53 ml 1137.65 ml 1320.12 ml Output Total 1330 ml 1500 ml 1025 ml Balance 257.53 ml -362.35 ml 295.12 ml Exam Constitutional: well developed Head: atraumatic, normocephalic Neck: supple Respiratory: diminished breath sounds Cardiovascular: regular rate and rhythm Gastrointestinal: non-tender, soft Extremities: normal pulses Results Result Diagram: 05/01/17 0430 05/01/17 0430 Results 24 hrs Laboratory Tests Test 04/30/17 17:30 05/01/17 04:30 Potassium Level 3.6 3.5 White Blood Count 6.6 # Red Blood Count 3.31 L Hemoglobin 9.6 L Hematocrit 29.4 L Mean Corpuscular Volume 88.8 Mean Corpuscular Hemoglobin 29.0 Mean Corpuscular Hemoglobin Concent 32.7 Red Cell Distribution Width 16.4 H Platelet Count 172 # Mean Platelet Volume 11.4 H Neutrophils % 73.8 Lymphocytes % 12.6 L Monocytes % 10.5 Eosinophils % 1.1 Basophils % 0.3 Nucleated Red Blood Cells % 0.0 Neutrophils # 4.9 Lymphocytes # 0.8 Monocytes # 0.7 Eosinophils # 0.1 Basophils # 0.0 Nucleated Red Blood Cells # 0.0 Sodium Level 144 Chloride Level 113 H Carbon Dioxide Level 24 Anion Gap 11 Blood Urea Nitrogen 10 Creatinine 0.49 L Glucose Level 137 Calcium Level 9.3 Random Cortisol 12.5 Medications Medications Current Medications Acetaminophen (Tylenol Liquid) 650 mg Q4 PRN GTB PAIN AND OR ELEVATED TEMP Last administered on 05/01/17 09:37; Admin Dose 650 MG; Start 04/25/17 at 23:00 Eye Lubricant (Akwa Oint) 1 applic QID BOTH EYES Last administered on 09:35; Admin Dose 1 APPLIC; Start 04/26/17 at 09:00 Bromocriptine Mesylate (Parlodel) 30 mg DAILY GTB Last administered on 09:36; Admin Dose 30 MG; Start 04/26/17 at 09:00 Chlorhexidine Gluconate (Peridex) 15 ml BID MM Last administered on 05/01/17 09:35; Admin Dose 15 ML; Start 04/26/17 at 09:00 Enoxaparin Sodium (Lovenox) 30 mg DAILY SC Last administered on 05/01/17 09:38 ; Admin Dose 30 MG; Start 04/26/17 at 09:00 Ferrous Sulfate (Feosol Liquid Cup) 300 mg BID GTB Last administered on 09:35; Admin Dose 300 MG; Start 04/26/17 at 09:00 Hydrocortisone (Cortef) 20 mg DAILY GTB Last administered on 05/01/17 09:35; Admin Dose 20 MG; Start 04/26/17 at 09:00 Ondansetron HCl (Zofran Tab) 4 mg Q8 PRN GTB NAUSEA AND/OR VOMITING; Start at 23:00 Lactobacillus Acidophilus (Florajen3 Capsule) 1 each DAILY PEG Last administered on 05/01/17 09:35; Admin Dose 1 EACH; Start 04/26/17 at 09:00 Ergocalciferol (Drisdol) 50,000 unit Q7D GTB ; Start 05/02/17 at 09:00 Ascorbic Acid (Vitamin C) 250 mg BID GTB Last administered on 05/01/17 09:35; Admin Dose 250 MG; Start 04/26/17 at 09:00 Famotidine 20 mg 20 mg BID GTB Last administered on 05/01/17 09:37; Admin Dose 20 MG; Start 04/26/17 at 09:00 Phenylephrine HCl 40 mg/Dextrose 500 ml @ 75 mls/hr TITRATE IV ; Start at 08:30 Norepinephrine/ Dextrose (Levophed/D5W) 500 ml @ 1.87 mls/hr TITRATE IV Last administered on 04/30/17 11:37; Admin Dose 7.5 MLS/HR; Start 04/26/17 at 14:30 Morphine Sulfate 2 mg 2 mg Q4H PRN IV PAIN Last administered on 04/30/17 13:44 ; Admin Dose 2 MG; Start 04/26/17 at 16:30 Potassium Chloride/Dextrose/ Sod Cl 1,000 ml @ 120 mls/hr Q8H20M IV Last administered on 05/01/17 02:38; Admin Dose 120 MLS/HR; Start 04/29/17 at 12:30 Meropenem/Sodium Chloride (Merrem 1 Gm/50 ml (Pmx)) 50 ml @ 100 mls/hr Q8 IVPB Last administered on 05/01/17 05:40; Admin Dose 100 MLS/HR; Start 04/29/17 at 22:00 Desmopressin Acetate (Ddavp) 0.05 mg BID GTB Last administered on 05/01/17 09: 35; Admin Dose 0.05 MG; Start 04/30/17 at 21:00 Posaconazole (Noxafil) 400 mg Q8 PO Last administered on 05/01/17 05:40; Admin Dose 400 MG; Start 04/30/17 at 22:00 ANDREA JORGENSEN May 01, 2017 10:38
--- NOTE | 2017-05-01 12:41 | CONS ---
Date/Time of Note Date/Time of Note DATE: 05/01/17 TIME: 12:39 Consult Date/Type/Reason Admit Date/Time Apr 25, 2017 at 12:31 Initial Consult Date 04/25/17 Type of Consultation: Pulm/CCM Ordering Provider: HELEN CASTELLANO MD Subjective Non-responsive; on vent. On low-dose levophed. Objective Vital Signs Date Time Temp Pulse Resp B/P Pulse Ox O2 Delivery O2 Flow Rate FiO2 05/01/17 11:00 112 38 99 30 05/01/17 11:00 105/65 Mechanical Ventilator 05/01/17 08:00 99.7 Intake and Output 04/30/17 04/30/17 05/01/17 15:00 23:00 07:00 Intake Total 1587.53 ml 1137.65 ml 1370.12 ml Output Total 1330 ml 1500 ml 1375 ml Balance 257.53 ml -362.35 ml -4.88 ml Exam HEENT: Pupils equal, round, and reactive to light. Tracheostomy site clean and intact. CARDIAC: S1, S2, 1/6 systolic ejection murmur CHEST: Diminished air entry bilaterally. ABDOMEN: Mildly distended. Bowel sounds present no guarding or rebound EXTREMITIES: No cyanosis, clubbing edema +1 NEUROLOGIC: Generalized weakness, unable to assess. Results/Medications Result Diagram: 05/01/17 0430 05/01/17 0430 Results 24 hrs Laboratory Tests Test 04/30/17 17:30 05/01/17 04:30 Potassium Level 3.6 3.5 White Blood Count 6.6 # Red Blood Count 3.31 L Hemoglobin 9.6 L Hematocrit 29.4 L Mean Corpuscular Volume 88.8 Mean Corpuscular Hemoglobin 29.0 Mean Corpuscular Hemoglobin Concent 32.7 Red Cell Distribution Width 16.4 H Platelet Count 172 # Mean Platelet Volume 11.4 H Neutrophils % 73.8 Lymphocytes % 12.6 L Monocytes % 10.5 Eosinophils % 1.1 Basophils % 0.3 Nucleated Red Blood Cells % 0.0 Neutrophils # 4.9 Lymphocytes # 0.8 Monocytes # 0.7 Eosinophils # 0.1 Basophils # 0.0 Nucleated Red Blood Cells # 0.0 Sodium Level 144 Chloride Level 113 H Carbon Dioxide Level 24 Anion Gap 11 Blood Urea Nitrogen 10 Creatinine 0.49 L Glucose Level 137 Calcium Level 9.3 Random Cortisol 12.5 Medications Current Medications Acetaminophen (Tylenol Liquid) 650 mg Q4 PRN GTB PAIN AND OR ELEVATED TEMP Last administered on 05/01/17 09:37; Admin Dose 650 MG; Start 04/25/17 at 23:00 Eye Lubricant (Akwa Oint) 1 applic QID BOTH EYES Last administered on 11:51; Admin Dose 1 APPLIC; Start 04/26/17 at 09:00 Bromocriptine Mesylate (Parlodel) 30 mg DAILY GTB Last administered on 09:36; Admin Dose 30 MG; Start 04/26/17 at 09:00 Chlorhexidine Gluconate (Peridex) 15 ml BID MM Last administered on 05/01/17 09:35; Admin Dose 15 ML; Start 04/26/17 at 09:00 Enoxaparin Sodium (Lovenox) 30 mg DAILY SC Last administered on 05/01/17 09:38 ; Admin Dose 30 MG; Start 04/26/17 at 09:00 Ferrous Sulfate (Feosol Liquid Cup) 300 mg BID GTB Last administered on 09:35; Admin Dose 300 MG; Start 04/26/17 at 09:00 Hydrocortisone (Cortef) 20 mg DAILY GTB Last administered on 05/01/17 09:35; Admin Dose 20 MG; Start 04/26/17 at 09:00 Ondansetron HCl (Zofran Tab) 4 mg Q8 PRN GTB NAUSEA AND/OR VOMITING; Start at 23:00 Lactobacillus Acidophilus (Florajen3 Capsule) 1 each DAILY PEG Last administered on 05/01/17 09:35; Admin Dose 1 EACH; Start 04/26/17 at 09:00 Ergocalciferol (Drisdol) 50,000 unit Q7D GTB ; Start 05/02/17 at 09:00 Ascorbic Acid (Vitamin C) 250 mg BID GTB Last administered on 05/01/17 09:35; Admin Dose 250 MG; Start 04/26/17 at 09:00 Famotidine 20 mg 20 mg BID GTB Last administered on 05/01/17 09:37; Admin Dose 20 MG; Start 04/26/17 at 09:00 Phenylephrine HCl 40 mg/Dextrose 500 ml @ 75 mls/hr TITRATE IV ; Start at 08:30 Norepinephrine/ Dextrose (Levophed/D5W) 500 ml @ 1.87 mls/hr TITRATE IV Last administered on 04/30/17 11:37; Admin Dose 7.5 MLS/HR; Start 04/26/17 at 14:30 Morphine Sulfate 2 mg 2 mg Q4H PRN IV PAIN Last administered on 04/30/17 13:44 ; Admin Dose 2 MG; Start 04/26/17 at 16:30 Potassium Chloride/Dextrose/ Sod Cl 1,000 ml @ 120 mls/hr Q8H20M IV Last administered on 05/01/17 11:42; Admin Dose 120 MLS/HR; Start 04/29/17 at 12:30 Meropenem/Sodium Chloride (Merrem 1 Gm/50 ml (Pmx)) 50 ml @ 100 mls/hr Q8 IVPB Last administered on 05/01/17 05:40; Admin Dose 100 MLS/HR; Start 04/29/17 at 22:00 Desmopressin Acetate (Ddavp) 0.05 mg BID GTB Last administered on 05/01/17 09: 35; Admin Dose 0.05 MG; Start 04/30/17 at 21:00 Posaconazole (Noxafil) 400 mg Q8 PO Last administered on 05/01/17 05:40; Admin Dose 400 MG; Start 04/30/17 at 22:00 Assessment/Plan Additional Assessment/Plan IMP: 1. Disseminated coccidiomycosis with encephalopathy. 2. Vent dependent respiratory failure 3. Septic shock, 4. Hypokalemia 5. Anemia of chronic disease RECS: 1. Continue mechanical ventilation 2. Did not tolerate weaning 3. Levophed gtt to MAP > 60 4. Replace potassium 5. DVT GI prophylaxis Disposition Continue ICU care critical care time 40 minutes. CASI KNOWLES MD May 01, 2017 12:41
[2017-05-01] MEDS: morphine 2 MG INJ IV PRN (14:46)
[2017-05-02] VITALS (67 sets, daily range): BP systolic 94–119; BP diastolic 63–84; PULSE 45–105; RESP 10–30
[2017-05-02] MEDS: MEROPENEM 1 GM/50ML(PMX) 50 ML IVPB SCH ×3 (05:21→21:59)
[2017-05-02] MEDS: POSACONAZOLE PO SCH ×3 (05:21→22:03)
[2017-05-02] MEDS: D5W-0.45 NACL + KCL 40 MEQ 1,000 ML IV SCH ×2 (06:54→14:14)
[2017-05-02] MEDS: OCULAR LUBRICANT 3.5 GM OPH OINT BOTH EYES SCH ×4 (08:50→21:57)
[2017-05-02] MEDS: HYDROCORTISONE 20 MG TAB GTB SCH (08:50)
[2017-05-02] MEDS: DESMOPRESSIN 0.1 MG TAB GTB SCH (08:51)
[2017-05-02] MEDS: FERROUS SULFATE 60 MG/ML 5ML CUP GTB SCH ×2 (08:51→21:58)
[2017-05-02] MEDS: ASCORBIC ACID 250 MG TAB GTB SCH ×2 (08:51→21:00)
[2017-05-02] MEDS: FAMOTIDINE 20 MG TAB GTB SCH ×2 (08:51→21:58)
[2017-05-02] MEDS: ACYCLOVIR 400 MG TAB PEG SCH ×5 (08:51→21:58)
[2017-05-02] MEDS: L ACIDOPHIL/B LACTIS/B LONGUM CAPSULE PEG SCH (08:51)
[2017-05-02] MEDS: CHLORHEXIDINE GLUCONATE 15 ML UD CUP MM SCH ×2 (08:52→21:58)
[2017-05-02] MEDS: BROMOCRIPTINE 2.5 MG TAB GTB SCH (08:52)
[2017-05-02] MEDS ORDERED: ERGOCALCIFEROL 50,000 UNIT CAP GTB SCH (09:00)
[2017-05-02] MEDS: ENOXAPARIN 30 MG/0.3 ML SYG SC SCH (09:03)
[2017-05-02 09:22] LABS: BASOPHILS % 0.2 % (0.0-2.0); EOSINOPHILS # 0.1 10^3/ul (0.0-0.5); EOSINOPHILS % 1.8 % (0.0-7.0); HEMATOCRIT 28.4 % (42.0-52.0); HEMOGLOBIN 9.3 g/dl (14.0-18.0); LYMPHOCYTES # 0.9 10^3/ul (0.8-2.9); LYMPHOCYTES % 16.5 % (15.0-51.0); MEAN CORPUSCULAR HEMOGLOBIN 29.8 pg (29.0-33.0); MEAN CORPUSCULAR HGB CONC 32.7 g/dl (32.0-37.0); MEAN PLATELET VOLUME 11.6 fl (7.4-10.4); MONOCYTE # 0.5 10^3/ul (0.3-0.9); MONOCYTES % 9.6 % (0.0-11.0); NEUTROPHIL # 3.8 10^3/ul (1.6-7.5); NEUTROPHILS % 70.2 % (39.0-77.0); PLATELET COUNT 167 10^3/UL (140-415); POSITIVE DIFF @See below; RED BLOOD COUNT 3.12 10^6/ul (4.70-6.10); RED CELL DISTRIBUTION WIDTH 15.9 % (11.5-14.5); WHITE BLOOD COUNT 5.4 10^3/ul (4.8-10.8)
[2017-05-02 09:26] LABS: CALCIUM 9.8 mg/dl (8.4-10.2); CREATININE 0.43 mg/dl (0.61-1.24); POTASSIUM 3.4 mmol/L (3.5-5.1)
[2017-05-02] MEDS: ERGOCALCIFEROL (8000 UNITS/ML PO SYG) GTB SCH (09:30)
[2017-05-02] MEDS ORDERED: ERGOCALCIFEROL (8000 UNITS/ML PO SYG) GTB SCH (09:30)
--- NOTE | 2017-05-02 09:59 | PN ---
Date/Time of Note Date/Time of Note DATE: 05/02/17 TIME: 09:58 Assessment/Plan VTE Prophylaxis VTE Prophylaxis Intervention: other Lines/Catheters IV [facility]ter Type (from [facility]): PICC Line Central line still needed: Yes Urinary Cath still in place: Yes Reason Cath still needed: skin wounds contaminated by urine Assessment/Plan Chief Complaint/Hosp Course - Septic shock due to bilateral pneumonia and UTI. Continue antibiotics per ID. Dr Brown is following in infection disease consultation. 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 - Acute kidney injury, resolving. - Hypernatremia, resolved. Dr Sorensen is following in nephrology consultation. - Hypokalemia, continue k protocol. - Pancytopenia most likely secondary to sepsis - Dysphagia with PEG. Continue tube G-tube feeding - VDRF with tracheostomy - Hydrocephalus, status post [employer] shunt. - Polyuria, improving. Problems: Subjective 24 Hr Interval Summary Free Text/Dictation Patient is sedated, trach in place Exam/Review of Systems Vital Signs Vitals Vital Signs Date Time Temp Pulse Resp B/P Pulse Ox O2 Delivery O2 Flow Rate FiO2 05/02/17 08:00 97.1 67 25 103/64 99 Mechanical Ventilator 05/02/17 07:25 30 Intake and Output 05/01/17 05/01/17 05/02/17 15:00 23:00 07:00 Intake Total 1675.0 ml 1560 ml 1240 ml Output Total 2350 ml 1525 ml 925 ml Balance -675.0 ml 35 ml 315 ml Exam Constitutional: well developed Head: atraumatic, normocephalic Neck: supple Respiratory: diminished breath sounds Cardiovascular: regular rate and rhythm Gastrointestinal: non-tender, soft Extremities: normal pulses Results Result Diagram: 05/02/17 0854 05/02/17 0854 Results 24 hrs Laboratory Tests Test 05/02/17 08:54 White Blood Count 5.4 Red Blood Count 3.12 L Hemoglobin 9.3 L Hematocrit 28.4 L Mean Corpuscular Volume 91.0 Mean Corpuscular Hemoglobin 29.8 Mean Corpuscular Hemoglobin Concent 32.7 Red Cell Distribution Width 15.9 H Platelet Count 167 Mean Platelet Volume 11.6 H Neutrophils % 70.2 Lymphocytes % 16.5 Monocytes % 9.6 Eosinophils % 1.8 Basophils % 0.2 Nucleated Red Blood Cells % 0.0 Neutrophils # 3.8 Lymphocytes # 0.9 Monocytes # 0.5 Eosinophils # 0.1 Basophils # 0.0 Nucleated Red Blood Cells # 0.0 Sodium Level 146 H Potassium Level 3.4 L Chloride Level 113 H Carbon Dioxide Level 27 Anion Gap 9 Blood Urea Nitrogen 10 Creatinine 0.43 L Glucose Level 120 Calcium Level 9.8 Medications Medications Current Medications Acetaminophen (Tylenol Liquid) 650 mg Q4 PRN GTB PAIN AND OR ELEVATED TEMP Last administered on 05/01/17 09:37; Admin Dose 650 MG; Start 04/25/17 at 23:00 Eye Lubricant (Akwa Oint) 1 applic QID BOTH EYES Last administered on 08:50; Admin Dose 1 APPLIC; Start 04/26/17 at 09:00 Bromocriptine Mesylate (Parlodel) 30 mg DAILY GTB Last administered on 08:52; Admin Dose 30 MG; Start 04/26/17 at 09:00 Chlorhexidine Gluconate (Peridex) 15 ml BID MM Last administered on 05/02/17 08:52; Admin Dose 15 ML; Start 04/26/17 at 09:00 Enoxaparin Sodium (Lovenox) 30 mg DAILY SC Last administered on 05/02/17 09:03 ; Admin Dose 30 MG; Start 04/26/17 at 09:00 Ferrous Sulfate (Feosol Liquid Cup) 300 mg BID GTB Last administered on 08:51; Admin Dose 300 MG; Start 04/26/17 at 09:00 Hydrocortisone (Cortef) 20 mg DAILY GTB Last administered on 05/02/17 08:50; Admin Dose 20 MG; Start 04/26/17 at 09:00 Ondansetron HCl (Zofran Tab) 4 mg Q8 PRN GTB NAUSEA AND/OR VOMITING; Start at 23:00 Lactobacillus Acidophilus (Florajen3 Capsule) 1 each DAILY PEG Last administered on 05/02/17 08:51; Admin Dose 1 EACH; Start 04/26/17 at 09:00 Ascorbic Acid (Vitamin C) 250 mg BID GTB Last administered on 05/02/17 08:51; Admin Dose 250 MG; Start 04/26/17 at 09:00 Famotidine 20 mg 20 mg BID GTB Last administered on 05/02/17 08:51; Admin Dose 20 MG; Start 04/26/17 at 09:00 Phenylephrine HCl 40 mg/Dextrose 500 ml @ 75 mls/hr TITRATE IV ; Start at 08:30 Norepinephrine/ Dextrose (Levophed/D5W) 500 ml @ 1.87 mls/hr TITRATE IV Last administered on 04/30/17 11:37; Admin Dose 7.5 MLS/HR; Start 04/26/17 at 14:30 Morphine Sulfate 2 mg 2 mg Q4H PRN IV PAIN Last administered on 05/01/17 14:46 ; Admin Dose 2 MG; Start 04/26/17 at 16:30 Potassium Chloride/Dextrose/ Sod Cl 1,000 ml @ 120 mls/hr Q8H20M IV Last administered on 05/02/17 06:54; Admin Dose 120 MLS/HR; Start 04/29/17 at 12:30 Meropenem/Sodium Chloride (Merrem 1 Gm/50 ml (Pmx)) 50 ml @ 100 mls/hr Q8 IVPB Last administered on 05/02/17 05:21; Admin Dose 100 MLS/HR; Start 04/29/17 at 22:00 Posaconazole (Noxafil) 400 mg Q8 PO Last administered on 05/02/17 05:21; Admin Dose 400 MG; Start 04/30/17 at 22:00 Desmopressin Acetate (Ddavp) 0.05 mg DAILY GTB Last administered on 05/02/17 08:51; Admin Dose 0.05 MG; Start 05/02/17 at 09:00 Ergocalciferol (Drisdol Liquid (Ped)) 50,000 units Q7D GTB ; Start 05/02/17 at 09:30 ANDREA JORGENSEN May 02, 2017 09:59
[2017-05-02] MEDS: POTASSIUM CHLORIDE 50 ML IVPB PRN ×2 (10:31→11:53)
--- NOTE | 2017-05-02 11:43 | CONS ---
Date/Time of Note Date/Time of Note DATE: 05/01/17 TIME: 10:30 Assessment/Plan Assessment/Plan Additional Assessment/Plan 1. Non Oliguric Acute kidney injury due to septic shock 2. Hypernatremia- resolved - Hypokalemia- resolved 3. Septic shock on levophed 4. Acute on chronic resp failure s/p Tracheostomy- on ventilator, pulmonary has been following 5. H/o Fungal meningitis, currently comatose 6. 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 Polyuria - Maintain UO wnl- on Desmopressin 0.05 mg GT bid- dw dr Mar Sorensen- will change desmopressin 0,05 mg gt daily Plan: continue D5W with 40mEQ KCL at 100 ml/hr levophed for bP support Na improved to normal, Cr improved to normal decrease DDAVP to 0.05 mg daily ID, pulmonary has been following will follow up Total critical care time spent 40 mins.Further recommendations based on clinical course. Plan of care discussed with Dr. Mar Sorensen Consultation Date/Type/Reason Admit Date/Time Apr 25, 2017 at 12:31 Initial Consult Date 04/25/17 Type of Consultation: ID Reason for Consultation NEPHROLOGY Referring Provider: HELEN CASTELLANO MD 24 HR Interval Summary Free Text/Dictation pt remains intubated, remains on vent - BP labile, on levophed, -on Desmopressin- makes urine-3855 m/24 hr, on GT feeding, afebrile, dw staff Constitutional: requiring IVF, requiring O2 Exam/Review of Systems Vital Signs Vitals Vital Signs Date Time Temp Pulse Resp B/P Pulse Ox O2 Delivery O2 Flow Rate FiO2 05/01/17 10:15 96 37 106/70 100 05/01/17 10:00 Mechanical Ventilator 05/01/17 08:05 30 05/01/17 08:00 99.7 Intake and Output 04/30/17 04/30/17 05/01/17 15:00 23:00 07:00 Intake Total 1587.53 ml 1137.65 ml 1320.12 ml Output Total 1330 ml 1500 ml 1025 ml Balance 257.53 ml -362.35 ml 295.12 ml Exam Constitutional: frail, non-verbal Respiratory: diminished breath sounds, other (trach intact) Cardiovascular: nl pulses, regular rate and rhythm Gastrointestinal: other (gt intact), soft Musculoskeletal: muscle weakness Neurological: unresponsive Results Result Diagram: 05/01/17 0430 05/01/17 0430 Results 24 hrs Laboratory Tests Test 04/30/17 17:30 05/01/17 04:30 Potassium Level 3.6 3.5 White Blood Count 6.6 # Red Blood Count 3.31 L Hemoglobin 9.6 L Hematocrit 29.4 L Mean Corpuscular Volume 88.8 Mean Corpuscular Hemoglobin 29.0 Mean Corpuscular Hemoglobin Concent 32.7 Red Cell Distribution Width 16.4 H Platelet Count 172 # Mean Platelet Volume 11.4 H Neutrophils % 73.8 Lymphocytes % 12.6 L Monocytes % 10.5 Eosinophils % 1.1 Basophils % 0.3 Nucleated Red Blood Cells % 0.0 Neutrophils # 4.9 Lymphocytes # 0.8 Monocytes # 0.7 Eosinophils # 0.1 Basophils # 0.0 Nucleated Red Blood Cells # 0.0 Sodium Level 144 Chloride Level 113 H Carbon Dioxide Level 24 Anion Gap 11 Blood Urea Nitrogen 10 Creatinine 0.49 L Glucose Level 137 Calcium Level 9.3 Random Cortisol 12.5 Medications Medications Current Medications Acetaminophen (Tylenol Liquid) 650 mg Q4 PRN GTB PAIN AND OR ELEVATED TEMP Last administered on 05/01/17 09:37; Admin Dose 650 MG; Start 04/25/17 at 23:00 Eye Lubricant (Akwa Oint) 1 applic QID BOTH EYES Last administered on 09:35; Admin Dose 1 APPLIC; Start 04/26/17 at 09:00 Bromocriptine Mesylate (Parlodel) 30 mg DAILY GTB Last administered on 09:36; Admin Dose 30 MG; Start 04/26/17 at 09:00 Chlorhexidine Gluconate (Peridex) 15 ml BID MM Last administered on 05/01/17 09:35; Admin Dose 15 ML; Start 04/26/17 at 09:00 Enoxaparin Sodium (Lovenox) 30 mg DAILY SC Last administered on 05/01/17 09:38 ; Admin Dose 30 MG; Start 04/26/17 at 09:00 Ferrous Sulfate (Feosol Liquid Cup) 300 mg BID GTB Last administered on 09:35; Admin Dose 300 MG; Start 04/26/17 at 09:00 Hydrocortisone (Cortef) 20 mg DAILY GTB Last administered on 05/01/17 09:35; Admin Dose 20 MG; Start 04/26/17 at 09:00 Ondansetron HCl (Zofran Tab) 4 mg Q8 PRN GTB NAUSEA AND/OR VOMITING; Start at 23:00 Lactobacillus Acidophilus (Florajen3 Capsule) 1 each DAILY PEG Last administered on 05/01/17 09:35; Admin Dose 1 EACH; Start 04/26/17 at 09:00 Ergocalciferol (Drisdol) 50,000 unit Q7D GTB ; Start 05/02/17 at 09:00 Ascorbic Acid (Vitamin C) 250 mg BID GTB Last administered on 05/01/17 09:35; Admin Dose 250 MG; Start 04/26/17 at 09:00 Famotidine 20 mg 20 mg BID GTB Last administered on 05/01/17 09:37; Admin Dose 20 MG; Start 04/26/17 at 09:00 Phenylephrine HCl 40 mg/Dextrose 500 ml @ 75 mls/hr TITRATE IV ; Start at 08:30 Norepinephrine/ Dextrose (Levophed/D5W) 500 ml @ 1.87 mls/hr TITRATE IV Last administered on 04/30/17 11:37; Admin Dose 7.5 MLS/HR; Start 04/26/17 at 14:30 Morphine Sulfate 2 mg 2 mg Q4H PRN IV PAIN Last administered on 04/30/17 13:44 ; Admin Dose 2 MG; Start 04/26/17 at 16:30 Potassium Chloride/Dextrose/ Sod Cl 1,000 ml @ 120 mls/hr Q8H20M IV Last administered on 05/01/17 02:38; Admin Dose 120 MLS/HR; Start 04/29/17 at 12:30 Meropenem/Sodium Chloride (Merrem 1 Gm/50 ml (Pmx)) 50 ml @ 100 mls/hr Q8 IVPB Last administered on 05/01/17 05:40; Admin Dose 100 MLS/HR; Start 04/29/17 at 22:00 Desmopressin Acetate (Ddavp) 0.05 mg BID GTB Last administered on 05/01/17 09: 35; Admin Dose 0.05 MG; Start 04/30/17 at 21:00 Posaconazole (Noxafil) 400 mg Q8 PO Last administered on 05/01/17 05:40; Admin Dose 400 MG; Start 04/30/17 at 22:00 BATSHEVA MCKEON May 01, 2017 10:42 BATSHEVA MCKEON May 01, 2017 10:42
--- NOTE | 2017-05-02 11:46 | CONS ---
Date/Time of Note Date/Time of Note DATE: 05/02/17 TIME: 11:44 Assessment/Plan Assessment/Plan Chief Complaint/Hosp Course assessment/impression - septic shock due to pneumonia and UTI - UTI due to ESBL+E. coli - b/l pneumonia due to klebsiella, EBL+E. coli - herpes labialis - h/o disseminated coccidioides mycosis infection, meningitis. Cocci CF 1:16 on 04/26/2017 - s/p VPS placement - VDRF s/p tracheostomy - PEG dependet status - pancytopenia, due to septic shock on admission - thrombocytopenia due to sepsis, improving - diarrhea recommendations - ordered: C diff test - pending results: posaconazole trough level 04/27/2017 - continue meropenem (04/29/2017-) - continue posaconazole to 400 mg q8hrs and repeat the level on 05/07/2017 (dose increased on 04/29/2017 according to the advise from JOE Galeano at neurosurgery department at [facility] informing us that Pt's posaconazole level had been low at [facility]) - continue acyclovir for herpes labialis (04/27/2017-), 7 days management d/w Pt's RN the critical care time I took to care for this Pt today day was from 1040 to 1120 Problems: Consultation Date/Type/Reason Admit Date/Time Apr 25, 2017 at 12:31 Initial Consult Date 04/25/17 Type of Consultation: ID Referring Provider: HELEN CASTELLANO MD 24 HR Interval Summary Subjective hx not possible: pt non-verbal, pt critical, pt critical status Exam/Review of Systems Vital Signs Vitals Vital Signs Date Time Temp Pulse Resp B/P Pulse Ox O2 Delivery O2 Flow Rate FiO2 05/02/17 10:15 66 19 102/67 98 05/02/17 10:00 Mechanical Ventilator 05/02/17 09:45 30 05/02/17 08:00 97.1 Intake and Output 05/01/17 05/01/17 05/02/17 14:59 22:59 06:59 Intake Total 1445.0 ml 1620 ml 1240 ml Output Total 2450 ml 1575 ml 900 ml Balance -1005.0 ml 45 ml 340 ml Exam Constitutional: frail, non-verbal Psych: confusion Head: other (s/p VPS placement) Eyes: nl conjunctiva, nl sclera, other (L ptosis) ENMT: nl external ears & nose, nl nasal mucosa & septum Neck: other (trach) Respiratory: crackles/rales Cardiovascular: nl pulses, regular rate and rhythm Gastrointestinal: non-tender, other (RT), soft, No distended Genitourinary - Male: other (FC) Extremities: normal pulses, No edema Neurological: confused Results Result Diagram: 05/02/17 0854 05/02/17 0854 Results 24 hrs Laboratory Tests Test 05/02/17 08:54 White Blood Count 5.4 Red Blood Count 3.12 L Hemoglobin 9.3 L Hematocrit 28.4 L Mean Corpuscular Volume 91.0 Mean Corpuscular Hemoglobin 29.8 Mean Corpuscular Hemoglobin Concent 32.7 Red Cell Distribution Width 15.9 H Platelet Count 167 Mean Platelet Volume 11.6 H Neutrophils % 70.2 Lymphocytes % 16.5 Monocytes % 9.6 Eosinophils % 1.8 Basophils % 0.2 Nucleated Red Blood Cells % 0.0 Neutrophils # 3.8 Lymphocytes # 0.9 Monocytes # 0.5 Eosinophils # 0.1 Basophils # 0.0 Nucleated Red Blood Cells # 0.0 Sodium Level 146 H Potassium Level 3.4 L Chloride Level 113 H Carbon Dioxide Level 27 Anion Gap 9 Blood Urea Nitrogen 10 Creatinine 0.43 L Glucose Level 120 Calcium Level 9.8 Medications Medications Current Medications Acetaminophen (Tylenol Liquid) 650 mg Q4 PRN GTB PAIN AND OR ELEVATED TEMP Last administered on 05/01/17 09:37; Admin Dose 650 MG; Start 04/25/17 at 23:00 Eye Lubricant (Akwa Oint) 1 applic QID BOTH EYES Last administered on 08:50; Admin Dose 1 APPLIC; Start 04/26/17 at 09:00 Bromocriptine Mesylate (Parlodel) 30 mg DAILY GTB Last administered on 08:52; Admin Dose 30 MG; Start 04/26/17 at 09:00 Chlorhexidine Gluconate (Peridex) 15 ml BID MM Last administered on 05/02/17 08:52; Admin Dose 15 ML; Start 04/26/17 at 09:00 Enoxaparin Sodium (Lovenox) 30 mg DAILY SC Last administered on 05/02/17 09:03 ; Admin Dose 30 MG; Start 04/26/17 at 09:00 Ferrous Sulfate (Feosol Liquid Cup) 300 mg BID GTB Last administered on 08:51; Admin Dose 300 MG; Start 04/26/17 at 09:00 Hydrocortisone (Cortef) 20 mg DAILY GTB Last administered on 05/02/17 08:50; Admin Dose 20 MG; Start 04/26/17 at 09:00 Ondansetron HCl (Zofran Tab) 4 mg Q8 PRN GTB NAUSEA AND/OR VOMITING; Start at 23:00 Lactobacillus Acidophilus (Florajen3 Capsule) 1 each DAILY PEG Last administered on 05/02/17 08:51; Admin Dose 1 EACH; Start 04/26/17 at 09:00 Ascorbic Acid (Vitamin C) 250 mg BID GTB Last administered on 05/02/17 08:51; Admin Dose 250 MG; Start 04/26/17 at 09:00 Famotidine (Pepcid) 20 mg BID GTB Last administered on 05/02/17 08:51; Admin Dose 20 MG; Start 04/26/17 at 09:00 Morphine Sulfate 2 mg 2 mg Q4H PRN IV PAIN Last administered on 05/01/17 14:46 ; Admin Dose 2 MG; Start 04/26/17 at 16:30 Potassium Chloride/Dextrose/ Sod Cl 1,000 ml @ 120 mls/hr Q8H20M IV Last administered on 05/02/17 06:54; Admin Dose 120 MLS/HR; Start 04/29/17 at 12:30 Meropenem/Sodium Chloride (Merrem 1 Gm/50 ml (Pmx)) 50 ml @ 100 mls/hr Q8 IVPB Last administered on 05/02/17 05:21; Admin Dose 100 MLS/HR; Start 04/29/17 at 22:00 Posaconazole (Noxafil) 400 mg Q8 PO Last administered on 05/02/17 05:21; Admin Dose 400 MG; Start 04/30/17 at 22:00 Desmopressin Acetate (Ddavp) 0.05 mg DAILY GTB Last administered on 05/02/17 08:51; Admin Dose 0.05 MG; Start 05/02/17 at 09:00 Ergocalciferol (Drisdol Liquid (Ped)) 50,000 units Q7D GTB ; Start 05/02/17 at 09:30 ELENI EVANS M.D. May 02, 2017 11:46
--- NOTE | 2017-05-02 13:15 | CONS ---
Date/Time of Note Date/Time of Note DATE: 05/02/17 TIME: 13:13 Consult Date/Type/Reason Admit Date/Time Apr 25, 2017 at 12:31 Initial Consult Date 04/25/17 Type of Consultation: Pulm/CCM Ordering Provider: HELEN CASTELLANO MD Subjective Nearly off levophed gtt. Remains unresponsive. Objective Vital Signs Date Time Temp Pulse Resp B/P Pulse Ox O2 Delivery O2 Flow Rate FiO2 05/02/17 12:45 78 29 101/67 99 05/02/17 12:00 97.8 Mechanical Ventilator 05/02/17 11:45 30 Intake and Output 05/01/17 05/01/17 05/02/17 15:00 23:00 07:00 Intake Total 1675.0 ml 1560 ml 1240 ml Output Total 2350 ml 1525 ml 925 ml Balance -675.0 ml 35 ml 315 ml Exam HEENT: Pupils equal, round, and reactive to light. Tracheostomy site clean and intact. CARDIAC: S1, S2, 1/6 systolic ejection murmur CHEST: Diminished air entry bilaterally. ABDOMEN: Mildly distended. Bowel sounds present no guarding or rebound EXTREMITIES: No cyanosis, clubbing edema +1 NEUROLOGIC: Generalized weakness, unable to assess. Results/Medications Result Diagram: 05/02/17 0854 05/02/17 0854 Results 24 hrs Laboratory Tests Test 05/02/17 08:54 White Blood Count 5.4 Red Blood Count 3.12 L Hemoglobin 9.3 L Hematocrit 28.4 L Mean Corpuscular Volume 91.0 Mean Corpuscular Hemoglobin 29.8 Mean Corpuscular Hemoglobin Concent 32.7 Red Cell Distribution Width 15.9 H Platelet Count 167 Mean Platelet Volume 11.6 H Neutrophils % 70.2 Lymphocytes % 16.5 Monocytes % 9.6 Eosinophils % 1.8 Basophils % 0.2 Nucleated Red Blood Cells % 0.0 Neutrophils # 3.8 Lymphocytes # 0.9 Monocytes # 0.5 Eosinophils # 0.1 Basophils # 0.0 Nucleated Red Blood Cells # 0.0 Sodium Level 146 H Potassium Level 3.4 L Chloride Level 113 H Carbon Dioxide Level 27 Anion Gap 9 Blood Urea Nitrogen 10 Creatinine 0.43 L Glucose Level 120 Calcium Level 9.8 Medications Current Medications Acetaminophen (Tylenol Liquid) 650 mg Q4 PRN GTB PAIN AND OR ELEVATED TEMP Last administered on 05/01/17 09:37; Admin Dose 650 MG; Start 04/25/17 at 23:00 Eye Lubricant (Akwa Oint) 1 applic QID BOTH EYES Last administered on 11:47; Admin Dose 1 APPLIC; Start 04/26/17 at 09:00 Bromocriptine Mesylate (Parlodel) 30 mg DAILY GTB Last administered on 08:52; Admin Dose 30 MG; Start 04/26/17 at 09:00 Chlorhexidine Gluconate (Peridex) 15 ml BID MM Last administered on 05/02/17 08:52; Admin Dose 15 ML; Start 04/26/17 at 09:00 Enoxaparin Sodium (Lovenox) 30 mg DAILY SC Last administered on 05/02/17 09:03 ; Admin Dose 30 MG; Start 04/26/17 at 09:00 Ferrous Sulfate (Feosol Liquid Cup) 300 mg BID GTB Last administered on 08:51; Admin Dose 300 MG; Start 04/26/17 at 09:00 Hydrocortisone (Cortef) 20 mg DAILY GTB Last administered on 05/02/17 08:50; Admin Dose 20 MG; Start 04/26/17 at 09:00 Ondansetron HCl (Zofran Tab) 4 mg Q8 PRN GTB NAUSEA AND/OR VOMITING; Start at 23:00 Lactobacillus Acidophilus (Florajen3 Capsule) 1 each DAILY PEG Last administered on 05/02/17 08:51; Admin Dose 1 EACH; Start 04/26/17 at 09:00 Ascorbic Acid (Vitamin C) 250 mg BID GTB Last administered on 05/02/17 08:51; Admin Dose 250 MG; Start 04/26/17 at 09:00 Famotidine (Pepcid) 20 mg BID GTB Last administered on 05/02/17 08:51; Admin Dose 20 MG; Start 04/26/17 at 09:00 Morphine Sulfate 2 mg 2 mg Q4H PRN IV PAIN Last administered on 05/01/17 14:46 ; Admin Dose 2 MG; Start 04/26/17 at 16:30 Potassium Chloride/Dextrose/ Sod Cl 1,000 ml @ 120 mls/hr Q8H20M IV Last administered on 05/02/17 06:54; Admin Dose 120 MLS/HR; Start 04/29/17 at 12:30 Meropenem/Sodium Chloride (Merrem 1 Gm/50 ml (Pmx)) 50 ml @ 100 mls/hr Q8 IVPB Last administered on 05/02/17 05:21; Admin Dose 100 MLS/HR; Start 04/29/17 at 22:00 Posaconazole (Noxafil) 400 mg Q8 PO Last administered on 05/02/17 05:21; Admin Dose 400 MG; Start 04/30/17 at 22:00 Desmopressin Acetate (Ddavp) 0.05 mg DAILY GTB Last administered on 05/02/17 08:51; Admin Dose 0.05 MG; Start 05/02/17 at 09:00 Ergocalciferol (Drisdol Liquid (Ped)) 50,000 units Q7D GTB Last administered on 05/02/17 09:30; Admin Dose 50,000 UNITS; Start 05/02/17 at 09:30 Assessment/Plan Additional Assessment/Plan IMP: 1. Disseminated coccidiomycosis with encephalopathy. 2. Vent dependent respiratory failure 3. Septic shock 4. Hypokalemia 5. Anemia of chronic disease RECS: 1. Continue mechanical ventilation 2. Did not tolerate weaning yesterday 3. Levophed gtt to MAP > 60--> off 4. Once off levophed gtt, may transfer to [facility] 5. DVT GI prophylaxis critical care time 40 minutes CASI KNOWLES MD May 02, 2017 13:15
--- NOTE | 2017-05-02 14:16 | PN ---
DATE: 05/02/2017 SUBJECTIVE DATA: This patient off pressors. Plan is for transfer to Telemetry. OBJECTIVE DATA: Patient is vent dependent status post tracheostomy. Status post PEG. Clinically improving hemodynamically. Temperature 97.8, pulse 69, blood pressure 94/67, oxygen saturation 99 percent. MEDICATIONS: 1. DDAVP. 2. Noxafil. 3. Meropenem. 4. Acyclovir. 5. Morphine. ASSESSMENT AND PLAN: At this time, we will continue current management. Stable from cardiac perspective. We will defer fluid status changes to Nephrology. Dictated By: Deangelo Ribeiro MD /jose/saadia /Document#: [id number]
--- NOTE | 2017-05-02 15:23 | RADRPT ---
PROCEDURE: Bilateral upper extremity venous duplex ultrasound. CLINICAL INDICATION: Upper extremity swelling. TECHNIQUE: Bilateral upper extremity venous duplex sonography was performed. COMPARISON: None. FINDINGS: The right internal jugular, subclavian, axillary, brachial, cephalic, basilic, antecubital, radial a nd ulnar veins showed no evidence for thrombus. These veins demonstrate normal color and Doppler wa veforms. The left internal jugular vein and subclavian veins are noncompressible containing low level interna l echoes consistent with deep vein fibrosis. Left axillary vein is patent. IMPRESSION: 1. 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 2. Right upper extremity vein demonstrate no evidence for thrombosis. The patient's nurse was notified of findings via telephone report by Dr. Us RPTAT: EE .Jennifer Us MD, MD Date Time Electronically viewed and signed by .Jennifer Us MD, MD on 05/02/2017 15:23 .M/
[2017-05-02 16:16] LABS: CREATINE KINASE < 20 IU/L (23-200)
[2017-05-02 16:39] LABS: CK-MB 1.19 ng/ml (0.0-2.4); TROPONIN-I < 0.012 ng/ml (0.00-0.12)
--- NOTE | 2017-05-02 17:07 | RADRPT ---
PROCEDURE: XR Chest. CLINICAL INDICATION: Shortness of breath. TECHNIQUE: Single frontal view. COMPARISON: 04/28/2017. FINDINGS: The tracheostomy tube and right arm PICC line are in satisfactory position. There is extensive bilat eral pulmonary air space disease in the mid and lower lung zones, unchanged. The heart size is normal. There is no pleural effusion. There is no pneumothorax. IMPRESSION: 1. No change from 04/28/2017. RPTAT: QQ .Garfield Sandhu MD, MD Date Time Electronically viewed and signed by .Garfield Sandhu MD, MD on 05/02/2017 17:07 .R/
[2017-05-02] MEDS ORDERED: ENOXAPARIN 60 MG/0.6 ML SYG SC SCH (21:00)
[2017-05-03] VITALS (24 sets, daily range): BP systolic 110–147; BP diastolic 60–80; PULSE 65–85; RESP 16–71
[2017-05-03] MEDS: D5W-0.45 NACL + KCL 40 MEQ 1,000 ML IV SCH ×4 (00:25→21:02)
[2017-05-03] MEDS: POSACONAZOLE PO SCH ×3 (06:20→21:13)
[2017-05-03] MEDS: MEROPENEM 1 GM/50ML(PMX) 50 ML IVPB SCH ×3 (06:20→21:10)
[2017-05-03] MEDS: FERROUS SULFATE 60 MG/ML 5ML CUP GTB SCH ×2 (09:16→21:02)
[2017-05-03] MEDS: OCULAR LUBRICANT 3.5 GM OPH OINT BOTH EYES SCH ×4 (09:16→21:03)
[2017-05-03] MEDS: BROMOCRIPTINE 2.5 MG TAB GTB SCH (09:17)
[2017-05-03] MEDS: FAMOTIDINE 20 MG TAB GTB SCH ×2 (09:17→21:02)
[2017-05-03] MEDS: L ACIDOPHIL/B LACTIS/B LONGUM CAPSULE PEG SCH (09:17)
[2017-05-03] MEDS: ASCORBIC ACID 250 MG TAB GTB SCH ×2 (09:18→21:02)
[2017-05-03] MEDS: CHLORHEXIDINE GLUCONATE 15 ML UD CUP MM SCH ×2 (09:18→21:03)
[2017-05-03] MEDS: ACYCLOVIR 400 MG TAB PEG SCH ×5 (11:02→21:10)
--- NOTE | 2017-05-03 11:24 | CONS ---
Date/Time of Note Date/Time of Note DATE: 05/03/17 TIME: 11:00 Assessment/Plan Assessment/Plan Chief Complaint/Hosp Course assessment/impression - septic shock due to pneumonia and UTI - UTI due to ESBL+E. coli - b/l pneumonia due to klebsiella, EBL+E. coli - herpes labialis - h/o disseminated coccidioides mycosis infection, meningitis. Cocci CF 1:16 on 04/26/2017 - s/p VPS placement - VDRF s/p tracheostomy - PEG dependet status - pancytopenia, due to septic shock on admission - thrombocytopenia due to sepsis, improving - diarrhea recommendations - d/c meropenem (04/29/2017-) after the last dose today - continue posaconazole to 400 mg q8hrs and repeat the level on 05/07/2017 ( posaconazole trough level 0.32 on 04/27/2017, the dose was increased on 2016 according to the advise from JOE Galeano at neurosurgery department at [facility] informing us that Pt's posaconazole level had been low at [facility]) - continue acyclovir for herpes labialis (04/27/2017-), 7 days management d/w Pt and RN Problems: Consultation Date/Type/Reason Admit Date/Time Apr 25, 2017 at 12:31 Initial Consult Date 04/25/17 Type of Consultation: ID Referring Provider: HELEN CASTELLANO MD 24 HR Interval Summary Subjective hx not possible: pt non-verbal Exam/Review of Systems Vital Signs Vitals Vital Signs Date Time Temp Pulse Resp B/P Pulse Ox O2 Delivery O2 Flow Rate FiO2 05/03/17 09:30 70 24 99 40 05/03/17 08:06 97.6 147/70 05/02/17 13:00 Mechanical Ventilator Intake and Output 05/02/17 05/02/17 05/03/17 15:00 23:00 07:00 Intake Total 1260 ml 1150 ml 950 ml Output Total 1250 ml 200 ml 1750 ml Balance 10 ml 950 ml -800 ml Exam Constitutional: frail, non-verbal Psych: confusion Head: other (s/p VPS) Eyes: nl conjunctiva, nl lids ENMT: nl external ears & nose, nl nasal mucosa & septum Neck: other (trach) Respiratory: other (coarse b/l) Cardiovascular: nl pulses, regular rate and rhythm Gastrointestinal: non-tender, other (RT), soft Genitourinary - Male: other (FC) Musculoskeletal: nl extremities to inspection Extremities: No edema Neurological: confused Skin: nl turgor Results Result Diagram: 05/02/17 0854 05/02/17 0854 Results 24 hrs Laboratory Tests Test 05/02/17 15:37 Creatine Kinase < 20 L Creatine Kinase Index Creatinine Kinase MB (Mass) 1.19 Troponin I < 0.012 Medications Medications Current Medications Acetaminophen (Tylenol Liquid) 650 mg Q4 PRN GTB PAIN AND OR ELEVATED TEMP Last administered on 05/01/17 09:37; Admin Dose 650 MG; Start 04/25/17 at 23:00 Eye Lubricant (Akwa Oint) 1 applic QID BOTH EYES Last administered on 09:16; Admin Dose 1 APPLIC; Start 04/26/17 at 09:00 Bromocriptine Mesylate (Parlodel) 30 mg DAILY GTB Last administered on 09:17; Admin Dose 30 MG; Start 04/26/17 at 09:00 Chlorhexidine Gluconate (Peridex) 15 ml BID MM Last administered on 05/03/17 09:18; Admin Dose 15 ML; Start 04/26/17 at 09:00 Ferrous Sulfate (Feosol Liquid Cup) 300 mg BID GTB Last administered on 09:16; Admin Dose 300 MG; Start 04/26/17 at 09:00 Hydrocortisone (Cortef) 20 mg DAILY GTB Last administered on 05/02/17 08:50; Admin Dose 20 MG; Start 04/26/17 at 09:00 Ondansetron HCl (Zofran Tab) 4 mg Q8 PRN GTB NAUSEA AND/OR VOMITING; Start at 23:00 Lactobacillus Acidophilus (Florajen3 Capsule) 1 each DAILY PEG Last administered on 05/03/17 09:17; Admin Dose 1 EACH; Start 04/26/17 at 09:00 Ascorbic Acid (Vitamin C) 250 mg BID GTB Last administered on 05/03/17 09:18; Admin Dose 250 MG; Start 04/26/17 at 09:00 Famotidine (Pepcid) 20 mg BID GTB Last administered on 10/2/17at 09:17; Admin Dose 20 MG; Start 04/26/17 at 09:00 Morphine Sulfate 2 mg 2 mg Q4H PRN IV PAIN Last administered on 05/01/17 14:46 ; Admin Dose 2 MG; Start 04/26/17 at 16:30 Potassium Chloride/Dextrose/ Sod Cl 1,000 ml @ 120 mls/hr Q8H20M IV Last administered on 05/03/17 09:32; Admin Dose 120 MLS/HR; Start 04/29/17 at 12:30 Meropenem/Sodium Chloride (Merrem 1 Gm/50 ml (Pmx)) 50 ml @ 100 mls/hr Q8 IVPB Last administered on 05/03/17 06:20; Admin Dose 100 MLS/HR; Start 04/29/17 at 22:00 Posaconazole (Noxafil) 400 mg Q8 PO Last administered on 05/03/17 06:20; Admin Dose 400 MG; Start 04/30/17 at 22:00 Desmopressin Acetate (Ddavp) 0.05 mg DAILY GTB Last administered on 05/02/17 08:51; Admin Dose 0.05 MG; Start 05/02/17 at 09:00 Ergocalciferol (Drisdol Liquid (Ped)) 50,000 units Q7D GTB Last administered on 05/02/17 09:30; Admin Dose 50,000 UNITS; Start 05/02/17 at 09:30 Enoxaparin Sodium (Lovenox) 50 mg Q12 SC ; Start 05/03/17 at 09:30 ELENI EVANS M.D. May 03, 2017 11:02
--- NOTE | 2017-05-03 11:27 | CONS ---
Date/Time of Note Date/Time of Note DATE: 05/03/17 TIME: 11:25 Assessment/Plan Assessment/Plan Additional Assessment/Plan Chest x-ray was reviewed from today which is showing patchy bilateral pneumonia. Ventilator setting; AC of 16, tidal volume 500, PEEP of 5, 30% FiO2. Assessment and recommendations; 1. Patient admitted with bilateral pneumonia currently on appropriate antibiotic regimen. 2. Chronic respiratory failure. 3. History of disseminated coccidiomycosis infection. 4. Diabetes insipidus. 5. Adrenal insufficiency. 6. Mild anemia and thrombocytopenia. Continue current treatment. Consultation Date/Type/Reason Admit Date/Time Apr 25, 2017 at 12:31 Initial Consult Date 04/25/17 Type of Consultation: Pulmonary Referring Provider: HELEN CASTELLANO MD 24 HR Interval Summary Free Text/Dictation Patient's condition is stable. Has been transferred out of ICU to medical floor. Patient remains in persistent vegetative state and remains chronically ventilator dependent. Next General exam; young male, on ventilator via tracheostomy, unresponsive, currently in no distress. Exam/Review of Systems Vital Signs Vitals Vital Signs Date Time Temp Pulse Resp B/P Pulse Ox O2 Delivery O2 Flow Rate FiO2 05/03/17 11:05 69 23 99 30 05/03/17 08:06 97.6 147/70 05/02/17 13:00 Mechanical Ventilator Intake and Output 05/02/17 05/02/17 05/03/17 15:00 23:00 07:00 Intake Total 1260 ml 1150 ml 950 ml Output Total 1250 ml 200 ml 1750 ml Balance 10 ml 950 ml -800 ml Exam HEENT exam; supple neck, no JVD. No lymphadenopathy. Midline trachea. No thyromegaly. Tracheostomy in place. Patient has fair dentition. Pupils are small bilaterally. Chest exam; diminished but clear breath sounds. S1-S2 audible, no murmurs. Regular rhythm. Abdomen exam; soft, G-tube in place. Bowel sounds audible. Abdomen is nondistended. No organomegaly. Extremity exam; no edema. MATERNAL CHILD NURSE exam; patient remains completely unresponsive. Results Result Diagram: 05/02/17 0854 05/02/17 0854 Results 24 hrs Laboratory Tests Test 05/02/17 15:37 05/03/17 11:07 Creatine Kinase < 20 L Creatine Kinase Index Creatinine Kinase MB (Mass) 1.19 Troponin I < 0.012 Lab Scanned Report REFERENCE LAB Medications Medications Current Medications Acetaminophen (Tylenol Liquid) 650 mg Q4 PRN GTB PAIN AND OR ELEVATED TEMP Last administered on 05/01/17 09:37; Admin Dose 650 MG; Start 04/25/17 at 23:00 Eye Lubricant (Akwa Oint) 1 applic QID BOTH EYES Last administered on 09:16; Admin Dose 1 APPLIC; Start 04/26/17 at 09:00 Bromocriptine Mesylate (Parlodel) 30 mg DAILY GTB Last administered on 09:17; Admin Dose 30 MG; Start 04/26/17 at 09:00 Chlorhexidine Gluconate (Peridex) 15 ml BID MM Last administered on 05/03/17 09:18; Admin Dose 15 ML; Start 04/26/17 at 09:00 Ferrous Sulfate (Feosol Liquid Cup) 300 mg BID GTB Last administered on 09:16; Admin Dose 300 MG; Start 04/26/17 at 09:00 Hydrocortisone (Cortef) 20 mg DAILY GTB Last administered on 05/02/17 08:50; Admin Dose 20 MG; Start 04/26/17 at 09:00 Ondansetron HCl (Zofran Tab) 4 mg Q8 PRN GTB NAUSEA AND/OR VOMITING; Start at 23:00 Lactobacillus Acidophilus (Florajen3 Capsule) 1 each DAILY PEG Last administered on 05/03/17 09:17; Admin Dose 1 EACH; Start 04/26/17 at 09:00 Ascorbic Acid (Vitamin C) 250 mg BID GTB Last administered on 05/03/17 09:18; Admin Dose 250 MG; Start 04/26/17 at 09:00 Famotidine (Pepcid) 20 mg BID GTB Last administered on 05/03/17 09:17; Admin Dose 20 MG; Start 04/26/17 at 09:00 Morphine Sulfate 2 mg 2 mg Q4H PRN IV PAIN Last administered on 05/01/17 14:46 ; Admin Dose 2 MG; Start 04/26/17 at 16:30 Potassium Chloride/Dextrose/ Sod Cl 1,000 ml @ 120 mls/hr Q8H20M IV Last administered on 05/03/17 09:32; Admin Dose 120 MLS/HR; Start 04/29/17 at 12:30 Meropenem/Sodium Chloride (Merrem 1 Gm/50 ml (Pmx)) 50 ml @ 100 mls/hr Q8 IVPB Last administered on 05/03/17 06:20; Admin Dose 100 MLS/HR; Start 04/29/17 at 22:00 Posaconazole (Noxafil) 400 mg Q8 PO Last administered on 05/03/17 06:20; Admin Dose 400 MG; Start 04/30/17 at 22:00 Desmopressin Acetate (Ddavp) 0.05 mg DAILY GTB Last administered on 05/02/17 08:51; Admin Dose 0.05 MG; Start 05/02/17 at 09:00 Ergocalciferol (Drisdol Liquid (Ped)) 50,000 units Q7D GTB Last administered on 05/02/17 09:30; Admin Dose 50,000 UNITS; Start 05/02/17 at 09:30 Enoxaparin Sodium (Lovenox) 50 mg Q12 SC ; Start 05/03/17 at 09:30 CHITO WALLS May 03, 2017 11:27
[2017-05-03] MEDS: DESMOPRESSIN 0.1 MG TAB GTB SCH ×2 (11:48→21:03)
[2017-05-03] MEDS: HYDROCORTISONE 20 MG TAB GTB SCH (11:48)
[2017-05-03] MEDS: ENOXAPARIN 60 MG/0.6 ML SYG SC SCH ×2 (11:58→21:51)
--- NOTE | 2017-05-03 16:37 | CONS ---
Date/Time of Note Date/Time of Note DATE: 05/03/17 TIME: 16:36 Assessment/Plan Assessment/Plan Additional Assessment/Plan Septic shock on IV pressor Disseminated coccidiomycosis Pneumonia UTI Vent dependent respiratory failure Encephalopathy DVT -Blood pressure trend improved. Patient with DVT on anticoagulation. No new cardiac orders at the current time Consultation Date/Type/Reason Admit Date/Time Apr 25, 2017 at 12:31 Initial Consult Date 04/25/17 Type of Consultation: cv Referring Provider: HELEN CASTELLANO MD 24 HR Interval Summary Free Text/Dictation Patient seen and examined Subjective hx not possible: pt non-verbal Exam/Review of Systems Vital Signs Vitals Vital Signs Date Time Temp Pulse Resp B/P Pulse Ox O2 Delivery O2 Flow Rate FiO2 05/03/17 16:25 98.6 62 16 128/72 100 05/03/17 15:23 30 05/02/17 13:00 Mechanical Ventilator Intake and Output 05/02/17 05/02/17 05/03/17 15:00 23:00 07:00 Intake Total 1260 ml 1150 ml 950 ml Output Total 1250 ml 200 ml 1750 ml Balance 10 ml 950 ml -800 ml Exam No apparent distress Head: normocephalic Neck: other (Tracheostomy) Respiratory: other (Coarse breath sounds bilaterally, no wheezing) Cardiovascular: other (S1-S2 heard), regular rate and rhythm Gastrointestinal: bowel sounds, non-tender, soft Extremities: edema Results Result Diagram: 05/02/17 0854 05/02/17 0854 Results 24 hrs Laboratory Tests Test 05/03/17 11:07 Lab Scanned Report REFERENCE LAB Medications Medications Current Medications Acetaminophen (Tylenol Liquid) 650 mg Q4 PRN GTB PAIN AND OR ELEVATED TEMP Last administered on 05/01/17 09:37; Admin Dose 650 MG; Start 04/25/17 at 23:00 Eye Lubricant (Akwa Oint) 1 applic QID BOTH EYES Last administered on 13:20; Admin Dose 1 APPLIC; Start 04/26/17 at 09:00 Bromocriptine Mesylate (Parlodel) 30 mg DAILY GTB Last administered on 09:17; Admin Dose 30 MG; Start 04/26/17 at 09:00 Chlorhexidine Gluconate (Peridex) 15 ml BID MM Last administered on 05/03/17 09:18; Admin Dose 15 ML; Start 04/26/17 at 09:00 Ferrous Sulfate (Feosol Liquid Cup) 300 mg BID GTB Last administered on 09:16; Admin Dose 300 MG; Start 04/26/17 at 09:00 Hydrocortisone (Cortef) 20 mg DAILY GTB Last administered on 05/03/17 11:48; Admin Dose 20 MG; Start 04/26/17 at 09:00 Ondansetron HCl (Zofran Tab) 4 mg Q8 PRN GTB NAUSEA AND/OR VOMITING; Start at 23:00 Lactobacillus Acidophilus (Florajen3 Capsule) 1 each DAILY PEG Last administered on 05/03/17 09:17; Admin Dose 1 EACH; Start 04/26/17 at 09:00 Ascorbic Acid (Vitamin C) 250 mg BID GTB Last administered on 05/03/17 09:18; Admin Dose 250 MG; Start 04/26/17 at 09:00 Famotidine (Pepcid) 20 mg BID GTB Last administered on 05/03/17 09:17; Admin Dose 20 MG; Start 04/26/17 at 09:00 Morphine Sulfate 2 mg 2 mg Q4H PRN IV PAIN Last administered on 05/01/17 14:46 ; Admin Dose 2 MG; Start 04/26/17 at 16:30 Potassium Chloride/Dextrose/ Sod Cl 1,000 ml @ 120 mls/hr Q8H20M IV Last administered on 05/03/17 09:32; Admin Dose 120 MLS/HR; Start 04/29/17 at 12:30 Meropenem/Sodium Chloride (Merrem 1 Gm/50 ml (Pmx)) 50 ml @ 100 mls/hr Q8 IVPB Last administered on 05/03/17 13:20; Admin Dose 100 MLS/HR; Start 04/29/17 at 22:00 Posaconazole (Noxafil) 400 mg Q8 PO Last administered on 05/03/17 13:21; Admin Dose 400 MG; Start 04/30/17 at 22:00 Desmopressin Acetate (Ddavp) 0.05 mg DAILY GTB Last administered on 05/03/17 11:48; Admin Dose 0.05 MG; Start 05/02/17 at 09:00 Ergocalciferol (Drisdol Liquid (Ped)) 50,000 units Q7D GTB Last administered on 05/02/17 09:30; Admin Dose 50,000 UNITS; Start 05/02/17 at 09:30 Enoxaparin Sodium (Lovenox) 50 mg Q12 SC Last administered on 05/03/17 11:58; Admin Dose 50 MG; Start 05/03/17 at 09:30 Oscar Awan DO May 03, 2017 16:37
--- NOTE | 2017-05-03 17:10 | RADRPT ---
Vent Rate: 62 bpm RR Interval: 0 msec DE Interval: 0 msec QRS Duration: 98 msec QT Interval: 394 msec QTC Interval: 399 msec P-R-T [place]: 0 - 85 - 78 degrees sinus rhythm Voltage criteria for left ventricular hypertrophy T wave abnormalities Cannot rule out Septal infarct , age undetermined Abnormal ECG Electronically Signed By: Oscar Awan [id number]
--- NOTE | 2017-05-03 17:41 | PN ---
Date/Time of Note Date/Time of Note DATE: 05/03/17 TIME: 17:34 Assessment/Plan VTE Prophylaxis VTE Prophylaxis Intervention: SCD's Lines/Catheters IV Catheter Type (from Nrs): PICC Line Central line still needed: Yes Urinary Cath still in place: Yes Reason Cath still needed: urinary retention Assessment/Plan Chief Complaint/Hosp Course Diarrhea, remains hemodynamically stable. Assessment/Plan - Septic shock due to bilateral pneumonia and UTI, resolving. Continue antibiotics per ID. Dr Brown is following in infection disease consultation. 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 Continue Lovenox. - Acute kidney injury, resolving. - Hypernatremia, resolved. Dr Sorensen is following in nephrology consultation. - Hypokalemia, continue k protocol. - Pancytopenia most likely secondary to sepsis - Dysphagia with PEG. Continue tube G-tube feeding - VDRF with tracheostomy - Hydrocephalus, status post SIGN LANGUAGE INSTRUCTOR shunt. - Polyuria, improving. - Diarrhea Further recommendations based on clinical course. Plan of care discussed with Dr. Dozier Problems: Exam/Review of Systems Vital Signs Vitals Vital Signs Date Time Temp Pulse Resp B/P Pulse Ox O2 Delivery O2 Flow Rate FiO2 05/03/17 17:05 70 23 98 30 05/03/17 16:25 98.6 128/72 05/02/17 13:00 Mechanical Ventilator Intake and Output 05/02/17 05/02/17 05/03/17 14:59 22:59 06:59 Intake Total 1480 ml 1150 ml 950 ml Output Total 1475 ml 200 ml 1750 ml Balance 5 ml 950 ml -800 ml Exam Constitutional: non-verbal Neck: other (Tracheostomy), supple Respiratory: diminished breath sounds Cardiovascular: nl pulses Gastrointestinal: non-tender, other (G-tube), soft Extremities: normal pulses Neurological: lethargic Results Result Diagram: 05/02/17 0854 05/02/17 0854 Results 24 hrs Laboratory Tests Test 05/03/17 11:07 Lab Scanned Report REFERENCE LAB Medications Medications Current Medications Acetaminophen (Tylenol Liquid) 650 mg Q4 PRN GTB PAIN AND OR ELEVATED TEMP Last administered on 05/01/17t 09:37; Admin Dose 650 MG; Start 04/25/17 at 23:00 Eye Lubricant (Akwa Oint) 1 applic QID BOTH EYES Last administered on 17:00; Admin Dose 1 APPLIC; Start 04/26/17 at 09:00 Bromocriptine Mesylate (Parlodel) 30 mg DAILY GTB Last administered on 09:17; Admin Dose 30 MG; Start 04/26/17 at 09:00 Chlorhexidine Gluconate (Peridex) 15 ml BID MM Last administered on 05/03/17 09:18; Admin Dose 15 ML; Start 04/26/17 at 09:00 Ferrous Sulfate (Feosol Liquid Cup) 300 mg BID GTB Last administered on 09:16; Admin Dose 300 MG; Start 04/26/17 at 09:00 Hydrocortisone (Cortef) 20 mg DAILY GTB Last administered on 05/03/17 11:48; Admin Dose 20 MG; Start 04/26/17 at 09:00 Ondansetron HCl (Zofran Tab) 4 mg Q8 PRN GTB NAUSEA AND/OR VOMITING; Start at 23:00 Lactobacillus Acidophilus (Florajen3 Capsule) 1 each DAILY PEG Last administered on 05/03/17 09:17; Admin Dose 1 EACH; Start 04/26/17 at 09:00 Ascorbic Acid (Vitamin C) 250 mg BID GTB Last administered on 05/03/17 09:18; Admin Dose 250 MG; Start 04/26/17 at 09:00 Famotidine (Pepcid) 20 mg BID GTB Last administered on 05/03/17 09:17; Admin Dose 20 MG; Start 04/26/17 at 09:00 Morphine Sulfate 2 mg 2 mg Q4H PRN IV PAIN Last administered on 05/01/17 14:46 ; Admin Dose 2 MG; Start 04/26/17 at 16:30 Potassium Chloride/Dextrose/ Sod Cl 1,000 ml @ 120 mls/hr Q8H20M IV Last administered on 05/03/17 09:32; Admin Dose 120 MLS/HR; Start 04/29/17 at 12:30 Meropenem/Sodium Chloride (Merrem 1 Gm/50 ml (Pmx)) 50 ml @ 100 mls/hr Q8 IVPB Last administered on 05/03/17 13:20; Admin Dose 100 MLS/HR; Start 04/29/17 at 22:00 Posaconazole (Noxafil) 400 mg Q8 PO Last administered on 05/03/17 13:21; Admin Dose 400 MG; Start 04/30/17 at 22:00 Desmopressin Acetate (Ddavp) 0.05 mg DAILY GTB Last administered on 05/03/17 11:48; Admin Dose 0.05 MG; Start 05/02/17 at 09:00 Ergocalciferol (Drisdol Liquid (Ped)) 50,000 units Q7D GTB Last administered on 05/02/17 09:30; Admin Dose 50,000 UNITS; Start 05/02/17 at 09:30 Enoxaparin Sodium (Lovenox) 50 mg Q12 SC Last administered on 05/03/17 11:58; Admin Dose 50 MG; Start 05/03/17 at 09:30 MANDIE DAVE May 03, 2017 17:41
--- NOTE | 2017-05-03 17:50 | CONS ---
Date/Time of Note Date/Time of Note DATE: 05/03/17 TIME: 17:46 Assessment/Plan Assessment/Plan Additional Assessment/Plan 1. Non Oliguric Acute kidney injury due to septic shock 2. Hypernaremia 3. Septic shock on levophed 4. Acute on chronic resp failure s/p Tracheostomy- on ventilator, pulmonary has been following 5. H/o Fungal meningitis, currently comatose 6. H/O Right sided DIGITAL MARKETING INTERN shunt 7. H/o G tube placement 8. Halfwayadministrative resident 9. Polyuria Plan: continue D51/2NS with 40mEQ KCL at 100 ml/hr, K replacement as per protocol, Na 146, Cr improved to normal u/o 4.9 L yesterday, today 3.4 Liter since morning, will increase DDAVP to 0.05 mg BID ID, pulmonary has been following will follow up Consultation Date/Type/Reason Admit Date/Time Apr 25, 2017 at 12:31 Initial Consult Date 04/25/17 Type of Consultation: NEPHROLOGY Referring Provider: HELEN CASTELLANO MD 24 HR Interval Summary Free Text/Dictation No labs today to review Exam/Review of Systems Vital Signs Vitals Vital Signs Date Time Temp Pulse Resp B/P Pulse Ox O2 Delivery O2 Flow Rate FiO2 05/03/17 17:05 70 23 98 30 05/03/17 16:25 98.6 128/72 05/02/17 13:00 Mechanical Ventilator Intake and Output 05/02/17 05/02/17 05/03/17 15:00 23:00 07:00 Intake Total 1260 ml 1150 ml 950 ml Output Total 1250 ml 200 ml 1750 ml Balance 10 ml 950 ml -800 ml Exam Constitutional: non-verbal Neck: other (Tracheostomy), supple Respiratory: diminished breath sounds Cardiovascular: nl pulses Gastrointestinal: non-tender, other (G-tube), soft Extremities: normal pulses Neurological: lethargic Results Result Diagram: 05/02/17 0854 05/02/17 0854 Results 24 hrs Laboratory Tests Test 05/03/17 11:07 Lab Scanned Report REFERENCE LAB Medications Medications Current Medications Acetaminophen (Tylenol Liquid) 650 mg Q4 PRN GTB PAIN AND OR ELEVATED TEMP Last administered on 05/01/17t 09:37; Admin Dose 650 MG; Start 04/25/17 at 23:00 Eye Lubricant (Akwa Oint) 1 applic QID BOTH EYES Last administered on 17:00; Admin Dose 1 APPLIC; Start 04/26/17 at 09:00 Bromocriptine Mesylate (Parlodel) 30 mg DAILY GTB Last administered on 09:17; Admin Dose 30 MG; Start 04/26/17 at 09:00 Chlorhexidine Gluconate (Peridex) 15 ml BID MM Last administered on 05/03/17 09:18; Admin Dose 15 ML; Start 04/26/17 at 09:00 Ferrous Sulfate (Feosol Liquid Cup) 300 mg BID GTB Last administered on 09:16; Admin Dose 300 MG; Start 04/26/17 at 09:00 Hydrocortisone (Cortef) 20 mg DAILY GTB Last administered on 05/03/17 11:48; Admin Dose 20 MG; Start 04/26/17 at 09:00 Ondansetron HCl (Zofran Tab) 4 mg Q8 PRN GTB NAUSEA AND/OR VOMITING; Start at 23:00 Lactobacillus Acidophilus (Florajen3 Capsule) 1 each DAILY PEG Last administered on 05/03/17 09:17; Admin Dose 1 EACH; Start 04/26/17 at 09:00 Ascorbic Acid (Vitamin C) 250 mg BID GTB Last administered on 05/03/17 09:18; Admin Dose 250 MG; Start 04/26/17 at 09:00 Famotidine (Pepcid) 20 mg BID GTB Last administered on 05/03/17 09:17; Admin Dose 20 MG; Start 04/26/17 at 09:00 Morphine Sulfate 2 mg 2 mg Q4H PRN IV PAIN Last administered on 05/01/17 14:46 ; Admin Dose 2 MG; Start 04/26/17 at 16:30 Potassium Chloride/Dextrose/ Sod Cl 1,000 ml @ 120 mls/hr Q8H20M IV Last administered on 05/03/17 09:32; Admin Dose 120 MLS/HR; Start 04/29/17 at 12:30 Meropenem/Sodium Chloride (Merrem 1 Gm/50 ml (Pmx)) 50 ml @ 100 mls/hr Q8 IVPB Last administered on 05/03/17 13:20; Admin Dose 100 MLS/HR; Start 04/29/17 at 22:00 Posaconazole (Noxafil) 400 mg Q8 PO Last administered on 05/03/17 13:21; Admin Dose 400 MG; Start 04/30/17 at 22:00 Desmopressin Acetate (Ddavp) 0.05 mg DAILY GTB Last administered on 05/03/17 11:48; Admin Dose 0.05 MG; Start 05/02/17 at 09:00 Ergocalciferol (Drisdol Liquid (Ped)) 50,000 units Q7D GTB Last administered on 05/02/17 09:30; Admin Dose 50,000 UNITS; Start 05/02/17 at 09:30 Enoxaparin Sodium 50 mg 50 mg Q12 SC Last administered on 05/03/17 11:58; Admin Dose 50 MG; Start 05/03/17 at 09:30 Potassium Chloride/Dextrose (KCl/D5W) 265 ml @ 88.333 mls/ hr ONCE ONCE IVPB ; Start 05/03/17 at 18:30; Stop 05/03/17 at 21:29 Diphenoxylate HCl/ Atropine (Lomotil Liquid Cup) 5 ml Q6H PRN PO DIARRHEA; Start 05/03/17 at 18:00 FARHAT RUBIO MD May 03, 2017 17:50
[2017-05-03] MEDS ORDERED: DIPHENOXYLATE/ATROPINE 5 ML CUP PO PRN (18:00)
[2017-05-03] MEDS ORDERED: POTASSIUM CHLORIDE 30 MEQ in DEXTROSE 5% 250 ML IVPB ONE (18:30)
[2017-05-04] VITALS (23 sets, daily range): BP systolic 107–132; BP diastolic 67–82; PULSE 62–90; RESP 16–23
[2017-05-04] MEDS: POSACONAZOLE PO SCH ×3 (06:22→21:06)
[2017-05-04] MEDS: MEROPENEM 1 GM/50ML(PMX) 50 ML IVPB SCH (06:22)
[2017-05-04] MEDS: D5W-0.45 NACL + KCL 40 MEQ 1,000 ML IV SCH ×2 (06:25→17:06)
[2017-05-04 07:29] LABS: BASOPHILS % 0.7 % (0.0-2.0); EOSINOPHILS # 0.1 10^3/ul (0.0-0.5); EOSINOPHILS % 2.2 % (0.0-7.0); HEMATOCRIT 32.1 % (42.0-52.0); HEMOGLOBIN 10.6 g/dl (14.0-18.0); LYMPHOCYTES # 0.9 10^3/ul (0.8-2.9); LYMPHOCYTES % 21.6 % (15.0-51.0); MEAN CORPUSCULAR HEMOGLOBIN 29.6 pg (29.0-33.0); MEAN CORPUSCULAR VOLUME 89.7 fl (82.0-101.0); MEAN PLATELET VOLUME 11.8 fl (7.4-10.4); MONOCYTE # 0.4 10^3/ul (0.3-0.9); MONOCYTES % 8.7 % (0.0-11.0); NEUTROPHIL # 2.6 10^3/ul (1.6-7.5); NEUTROPHILS % 64.6 % (39.0-77.0); PLATELET COUNT 214 10^3/UL (140-415); RED BLOOD COUNT 3.58 10^6/ul (4.70-6.10); RED CELL DISTRIBUTION WIDTH 14.7 % (11.5-14.5)
--- NOTE | 2017-05-04 09:06 | CONS ---
Date/Time of Note Date/Time of Note DATE: 05/04/17 TIME: 09:05 Assessment/Plan Assessment/Plan Chief Complaint/Hosp Course assessment/impression - septic shock due to pneumonia and UTI - UTI due to ESBL+E. coli. Took pip/tazo and then meropenem - b/l pneumonia due to klebsiella, EBL+E. coli. Took pip/tazo and then meropenem - herpes labialis - h/o disseminated coccidioides mycosis infection, meningitis. Cocci CF 1:16 on 04/26/2017 - s/p VPS placement - VDRF s/p tracheostomy - PEG dependet status - pancytopenia, due to septic shock on admission - thrombocytopenia due to sepsis, improving - diarrhea recommendations - continue posaconazole to 400 mg q8hrs and repeat the level on 05/07/2017 ( posaconazole trough level 0.32 on 04/27/2017, the dose was increased on 2016 according to the advise from JOE Galeano at neurosurgery department at [facility] informing us that Pt's posaconazole level had been low at [facility]) - complete acyclovir for herpes labialis (04/27/2017-), 7 days Problems: Consultation Date/Type/Reason Admit Date/Time Apr 25, 2017 at 12:31 Initial Consult Date 04/25/17 Type of Consultation: ID Referring Provider: HELEN CASTELLANO MD 24 HR Interval Summary Subjective hx not possible: pt non-verbal Exam/Review of Systems Vital Signs Vitals Vital Signs Date Time Temp Pulse Resp B/P Pulse Ox O2 Delivery O2 Flow Rate FiO2 05/04/17 07:30 75 20 100 30 05/04/17 06:57 97.4 107/67 05/02/17 13:00 Mechanical Ventilator Intake and Output 05/03/17 05/03/17 05/04/17 15:00 23:00 07:00 Intake Total 1000 ml 100 ml 950 ml Output Total 2000 ml Balance 1000 ml -1900 ml 950 ml Exam Constitutional: frail, non-verbal Psych: confusion Head: other (s/p VPS placement) Eyes: nl conjunctiva, nl lids, nl sclera ENMT: nl external ears & nose, nl nasal mucosa & septum, other (superficial ulcers of lower lip only, no vesicle) Neck: other (trach) Respiratory: other (coarse) Cardiovascular: nl pulses, regular rate and rhythm Gastrointestinal: non-tender, other (GT), soft Genitourinary - Male: other (FC) Musculoskeletal: nl extremities to inspection Extremities: No edema Neurological: confused, lethargic Skin: nl turgor Results Result Diagram: 05/04/17 0704 05/02/17 0854 Results 24 hrs Laboratory Tests Test 05/03/17 11:07 05/04/17 07:04 Lab Scanned Report REFERENCE LAB White Blood Count 4.0 #L Red Blood Count 3.58 L Hemoglobin 10.6 L Hematocrit 32.1 L Mean Corpuscular Volume 89.7 Mean Corpuscular Hemoglobin 29.6 Mean Corpuscular Hemoglobin Concent 33.0 Red Cell Distribution Width 14.7 H Platelet Count 214 # Mean Platelet Volume 11.8 H Neutrophils % 64.6 Lymphocytes % 21.6 Monocytes % 8.7 Eosinophils % 2.2 Basophils % 0.7 Nucleated Red Blood Cells % 0.0 Neutrophils # 2.6 Lymphocytes # 0.9 Monocytes # 0.4 Eosinophils # 0.1 Basophils # 0.0 Nucleated Red Blood Cells # 0.0 Medications Medications Current Medications Acetaminophen (Tylenol Liquid) 650 mg Q4 PRN GTB PAIN AND OR ELEVATED TEMP Last administered on 05/01/17 09:37; Admin Dose 650 MG; Start 04/25/17 at 23:00 Eye Lubricant (Akwa Oint) 1 applic QID BOTH EYES Last administered on 21:03; Admin Dose 1 APPLIC; Start 04/26/17 at 09:00 Bromocriptine Mesylate (Parlodel) 30 mg DAILY GTB Last administered on 09:17; Admin Dose 30 MG; Start 04/26/17 at 09:00 Chlorhexidine Gluconate (Peridex) 15 ml BID MM Last administered on 05/03/17 21:03; Admin Dose 15 ML; Start 04/26/17 at 09:00 Ferrous Sulfate (Feosol Liquid Cup) 300 mg BID GTB Last administered on 21:02; Admin Dose 300 MG; Start 04/26/17 at 09:00 Hydrocortisone (Cortef) 20 mg DAILY GTB Last administered on 05/03/17 11:48; Admin Dose 20 MG; Start 04/26/17 at 09:00 Ondansetron HCl (Zofran Tab) 4 mg Q8 PRN GTB NAUSEA AND/OR VOMITING; Start at 23:00 Lactobacillus Acidophilus (Florajen3 Capsule) 1 each DAILY PEG Last administered on 05/03/17 09:17; Admin Dose 1 EACH; Start 04/26/17 at 09:00 Ascorbic Acid (Vitamin C) 250 mg BID GTB Last administered on 05/03/17 21:02; Admin Dose 250 MG; Start 04/26/17 at 09:00 Famotidine (Pepcid) 20 mg BID GTB Last administered on 05/03/17 21:02; Admin Dose 20 MG; Start 04/26/17 at 09:00 Morphine Sulfate 2 mg 2 mg Q4H PRN IV PAIN Last administered on 05/01/17 14:46 ; Admin Dose 2 MG; Start 04/26/17 at 16:30 Potassium Chloride/Dextrose/ Sod Cl 1,000 ml @ 100 mls/hr Q10H IV Last administered on 05/04/17 06:25; Admin Dose 100 MLS/HR; Start 04/29/17 at 12:30 Meropenem/Sodium Chloride (Merrem 1 Gm/50 ml (Pmx)) 50 ml @ 100 mls/hr Q8 IVPB Last administered on 05/04/17 06:22; Admin Dose 100 MLS/HR; Start 04/29/17 at 22:00 Posaconazole (Noxafil) 400 mg Q8 PO Last administered on 05/04/17 06:22; Admin Dose 400 MG; Start 04/30/17 at 22:00 Ergocalciferol (Drisdol Liquid (Ped)) 50,000 units Q7D GTB Last administered on 05/02/17 09:30; Admin Dose 50,000 UNITS; Start 05/02/17 at 09:30 Enoxaparin Sodium (Lovenox) 50 mg Q12 SC Last administered on 05/03/17 21:51; Admin Dose 50 MG; Start 05/03/17 at 09:30 Diphenoxylate HCl/ Atropine (Lomotil Liquid Cup) 5 ml Q6H PRN PO DIARRHEA; Start 05/03/17 at 18:00 Desmopressin Acetate (Ddavp) 0.05 mg BID GTB Last administered on 10/2/17at 21: 03; Admin Dose 0.05 MG; Start 05/03/17 at 21:00 ELENI EVANS M.D. May 04, 2017 09:06
[2017-05-04] MEDS: HYDROCORTISONE 20 MG TAB GTB SCH (09:48)
[2017-05-04] MEDS: FAMOTIDINE 20 MG TAB GTB SCH ×2 (09:48→20:59)
[2017-05-04] MEDS: FERROUS SULFATE 60 MG/ML 5ML CUP GTB SCH ×2 (09:49→20:59)
[2017-05-04] MEDS: BROMOCRIPTINE 2.5 MG TAB GTB SCH (09:49)
[2017-05-04] MEDS: DESMOPRESSIN 0.1 MG TAB GTB SCH ×2 (09:49→20:59)
[2017-05-04] MEDS: CHLORHEXIDINE GLUCONATE 15 ML UD CUP MM SCH ×2 (09:50→20:59)
[2017-05-04] MEDS: ASCORBIC ACID 250 MG TAB GTB SCH ×2 (09:50→21:05)
[2017-05-04] MEDS: L ACIDOPHIL/B LACTIS/B LONGUM CAPSULE PEG SCH (09:50)
[2017-05-04] MEDS: ACYCLOVIR 400 MG TAB PEG SCH (09:50)
[2017-05-04] MEDS: ENOXAPARIN 60 MG/0.6 ML SYG SC SCH ×2 (10:03→21:29)
[2017-05-04] MEDS: OCULAR LUBRICANT 3.5 GM OPH OINT BOTH EYES SCH ×4 (10:07→21:00)
--- NOTE | 2017-05-04 12:46 | CONS ---
Date/Time of Note Date/Time of Note DATE: 05/04/17 TIME: 12:43 Assessment/Plan Assessment/Plan Additional Assessment/Plan Ventilator setting; AC of 16, tidal volume 500, PEEP of 5, 30% FiO2. Assessment and recommendations; 1. Patient admitted with bilateral pneumonia currently on appropriate antibiotic regimen. 2. Chronic respiratory failure due to severe anoxic brain injury resulting in permanent vegetative state. 3. History of prior disseminated coccidiodomycosis infection. 4. Adrenal insufficiency and diabetes insipidus. Patient on appropriate replacement therapy. Continue current treatment. Pain follow-up chest x-ray. Consultation Date/Type/Reason Admit Date/Time Apr 25, 2017 at 12:31 Initial Consult Date 04/25/17 Type of Consultation: Pulmonary Referring Provider: HELEN CASTELLANO MD 24 HR Interval Summary Free Text/Dictation Patient's condition remains stable. Remains in a persistent vegetative state. Has remained hemodynamically stable. General exam; young male, on ventilator via tracheostomy, unresponsive, currently in no distress. Exam/Review of Systems Vital Signs Vitals Vital Signs Date Time Temp Pulse Resp B/P Pulse Ox O2 Delivery O2 Flow Rate FiO2 05/04/17 11:10 78 20 98 30 05/04/17 11:05 97.4 124/68 05/02/17 13:00 Mechanical Ventilator Intake and Output 05/03/17 05/03/17 05/04/17 15:00 23:00 07:00 Intake Total 1000 ml 100 ml 950 ml Output Total 2000 ml Balance 1000 ml -1900 ml 950 ml Exam HEENT exam; supple neck, no JVD. No lymphadenopathy. Midline trachea. No thyromegaly. Tracheostomy in place. Patient has fair dentition. Pupils are small bilaterally. Chest exam; diminished but clear breath sound. S1-S2 audible, no murmurs. Regular rhythm. Abdomen exam; soft, G-tube in place. No organomegaly. Nondistended. Bowel sounds audible. Extremity exam; no peripheral edema. 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 Results Result Diagram: 05/04/17 0704 05/02/17 0854 Results 24 hrs Laboratory Tests Test 05/04/17 07:04 White Blood Count 4.0 #L Red Blood Count 3.58 L Hemoglobin 10.6 L Hematocrit 32.1 L Mean Corpuscular Volume 89.7 Mean Corpuscular Hemoglobin 29.6 Mean Corpuscular Hemoglobin Concent 33.0 Red Cell Distribution Width 14.7 H Platelet Count 214 # Mean Platelet Volume 11.8 H Neutrophils % 64.6 Lymphocytes % 21.6 Monocytes % 8.7 Eosinophils % 2.2 Basophils % 0.7 Nucleated Red Blood Cells % 0.0 Neutrophils # 2.6 Lymphocytes # 0.9 Monocytes # 0.4 Eosinophils # 0.1 Basophils # 0.0 Nucleated Red Blood Cells # 0.0 Medications Medications Current Medications Acetaminophen (Tylenol Liquid) 650 mg Q4 PRN GTB PAIN AND OR ELEVATED TEMP Last administered on 05/01/17 09:37; Admin Dose 650 MG; Start 04/25/17 at 23:00 Eye Lubricant (Akwa Oint) 1 applic QID BOTH EYES Last administered on 10:07; Admin Dose 1 APPLIC; Start 04/26/17 at 09:00 Bromocriptine Mesylate (Parlodel) 30 mg DAILY GTB Last administered on 09:49; Admin Dose 30 MG; Start 04/26/17 at 09:00 Chlorhexidine Gluconate (Peridex) 15 ml BID MM Last administered on 05/04/17 09:50; Admin Dose 15 ML; Start 04/26/17 at 09:00 Ferrous Sulfate (Feosol Liquid Cup) 300 mg BID GTB Last administered on 09:49; Admin Dose 300 MG; Start 04/26/17 at 09:00 Hydrocortisone (Cortef) 20 mg DAILY GTB Last administered on 05/04/17 09:48; Admin Dose 20 MG; Start 04/26/17 at 09:00 Ondansetron HCl (Zofran Tab) 4 mg Q8 PRN GTB NAUSEA AND/OR VOMITING; Start at 23:00 Lactobacillus Acidophilus (Florajen3 Capsule) 1 each DAILY PEG Last administered on 05/04/17 09:50; Admin Dose 1 EACH; Start 04/26/17 at 09:00 Ascorbic Acid (Vitamin C) 250 mg BID GTB Last administered on 05/04/17 09:50; Admin Dose 250 MG; Start 04/26/17 at 09:00 Famotidine (Pepcid) 20 mg BID GTB Last administered on 05/04/17 09:48; Admin Dose 20 MG; Start 04/26/17 at 09:00 Morphine Sulfate 2 mg 2 mg Q4H PRN IV PAIN Last administered on 05/01/17 14:46 ; Admin Dose 2 MG; Start 04/26/17 at 16:30 Potassium Chloride/Dextrose/ Sod Cl (D5-1/2ns + KCl 40 Meq) 1,000 ml @ 100 mls/ hr Q10H IV Last administered on 05/04/17 06:25; Admin Dose 100 MLS/HR; Start 04/29/17 at 12:30 Posaconazole (Noxafil) 400 mg Q8 PO Last administered on 05/04/17 06:22; Admin Dose 400 MG; Start 04/30/17 at 22:00 Ergocalciferol (Drisdol Liquid (Ped)) 50,000 units Q7D GTB Last administered on 05/02/17 09:30; Admin Dose 50,000 UNITS; Start 05/02/17 at 09:30 Enoxaparin Sodium (Lovenox) 50 mg Q12 SC Last administered on 05/04/17 10:03; Admin Dose 50 MG; Start 05/03/17 at 09:30 Diphenoxylate HCl/ Atropine (Lomotil Liquid Cup) 5 ml Q6H PRN PO DIARRHEA; Start 05/03/17 at 18:00 Desmopressin Acetate (Ddavp) 0.05 mg BID GTB Last administered on 05/04/17 09: 49; Admin Dose 0.05 MG; Start 05/03/17 at 21:00 CHITO WALLS May 04, 2017 12:46
[2017-05-04 13:10] LABS: CALCIUM 9.8 mg/dl (8.4-10.2); CREATININE 0.37 mg/dl (0.61-1.24); POTASSIUM 3.8 mmol/L (3.5-5.1)
--- NOTE | 2017-05-04 15:36 | CONS ---
Date/Time of Note Date/Time of Note DATE: 05/04/17 TIME: 15:34 Assessment/Plan Assessment/Plan Additional Assessment/Plan 1. Non Oliguric Acute kidney injury due to septic shock 2. Hypernaremia 3. Septic shock on levophed 4. Acute on chronic resp failure s/p Tracheostomy- on ventilator, pulmonary has been following 5. H/o Fungal meningitis, currently comatose 6. 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 Polyuria Plan: continue D51/2NS with 40mEQ KCL at 70 ml/hr, K replacement as per protocol, plan is to d/c IVF in AM after rounding in AM Na 135, Cr improved to normal continue DDAVP at current dose of 0.05 mg BID ID, pulmonary has been following will follow up Consultation Date/Type/Reason Admit Date/Time Apr 25, 2017 at 12:31 Initial Consult Date 04/25/17 Type of Consultation: NEPHROLOGY Referring Provider: HELEN CASTELLANO MD 24 HR Interval Summary Free Text/Dictation Cr 0.37, Electrolytes stable, Exam/Review of Systems Vital Signs Vitals Vital Signs Date Time Temp Pulse Resp B/P Pulse Ox O2 Delivery O2 Flow Rate FiO2 05/04/17 15:26 98.0 75 20 132/82 98 05/04/17 15:00 30 05/02/17 13:00 Mechanical Ventilator Intake and Output 05/03/17 05/03/17 05/04/17 15:00 23:00 07:00 Intake Total 1000 ml 100 ml 950 ml Output Total 2000 ml Balance 1000 ml -1900 ml 950 ml Exam Constitutional: non-verbal Neck: other (Tracheostomy), supple Respiratory: diminished breath sounds Cardiovascular: nl pulses Gastrointestinal: non-tender, other (G-tube), soft Extremities: normal pulses Results Result Diagram: 05/04/17 0704 05/04/17 0814 Results 24 hrs Laboratory Tests Test 05/04/17 07:04 05/04/17 08:14 White Blood Count 4.0 #L Red Blood Count 3.58 L Hemoglobin 10.6 L Hematocrit 32.1 L Mean Corpuscular Volume 89.7 Mean Corpuscular Hemoglobin 29.6 Mean Corpuscular Hemoglobin Concent 33.0 Red Cell Distribution Width 14.7 H Platelet Count 214 # Mean Platelet Volume 11.8 H Neutrophils % 64.6 Lymphocytes % 21.6 Monocytes % 8.7 Eosinophils % 2.2 Basophils % 0.7 Nucleated Red Blood Cells % 0.0 Neutrophils # 2.6 Lymphocytes # 0.9 Monocytes # 0.4 Eosinophils # 0.1 Basophils # 0.0 Nucleated Red Blood Cells # 0.0 Sodium Level 135 Potassium Level 3.8 Chloride Level 100 # Carbon Dioxide Level 31 Anion Gap 8 Blood Urea Nitrogen 7 Creatinine 0.37 L Glucose Level 87 Calcium Level 9.8 Medications Medications Current Medications Acetaminophen (Tylenol Liquid) 650 mg Q4 PRN GTB PAIN AND OR ELEVATED TEMP Last administered on 05/01/17 09:37; Admin Dose 650 MG; Start 04/25/17 at 23:00 Eye Lubricant (Akwa Oint) 1 applic QID BOTH EYES Last administered on 14:32; Admin Dose 1 APPLIC; Start 04/26/17 at 09:00 Bromocriptine Mesylate (Parlodel) 30 mg DAILY GTB Last administered on 09:49; Admin Dose 30 MG; Start 04/26/17 at 09:00 Chlorhexidine Gluconate (Peridex) 15 ml BID MM Last administered on 05/04/17 09:50; Admin Dose 15 ML; Start 04/26/17 at 09:00 Ferrous Sulfate (Feosol Liquid Cup) 300 mg BID GTB Last administered on 09:49; Admin Dose 300 MG; Start 04/26/17 at 09:00 Hydrocortisone (Cortef) 20 mg DAILY GTB Last administered on 05/04/17 09:48; Admin Dose 20 MG; Start 04/26/17 at 09:00 Ondansetron HCl (Zofran Tab) 4 mg Q8 PRN GTB NAUSEA AND/OR VOMITING; Start at 23:00 Lactobacillus Acidophilus (Florajen3 Capsule) 1 each DAILY PEG Last administered on 05/04/17 09:50; Admin Dose 1 EACH; Start 04/26/17 at 09:00 Ascorbic Acid (Vitamin C) 250 mg BID GTB Last administered on 05/04/17 09:50; Admin Dose 250 MG; Start 04/26/17 at 09:00 Famotidine (Pepcid) 20 mg BID GTB Last administered on 05/04/17 09:48; Admin Dose 20 MG; Start 04/26/17 at 09:00 Morphine Sulfate 2 mg 2 mg Q4H PRN IV PAIN Last administered on 05/01/17 14:46 ; Admin Dose 2 MG; Start 04/26/17 at 16:30 Potassium Chloride/Dextrose/ Sod Cl (D5-1/2ns + KCl 40 Meq) 1,000 ml @ 100 mls/ hr Q10H IV Last administered on 05/04/17 06:25; Admin Dose 100 MLS/HR; Start 04/29/17 at 12:30 Posaconazole (Noxafil) 400 mg Q8 PO Last administered on 05/04/17 14:33; Admin Dose 400 MG; Start 04/30/17 at 22:00 Ergocalciferol (Drisdol Liquid (Ped)) 50,000 units Q7D GTB Last administered on 05/02/17 09:30; Admin Dose 50,000 UNITS; Start 05/02/17 at 09:30 Enoxaparin Sodium (Lovenox) 50 mg Q12 SC Last administered on 05/04/17 10:03; Admin Dose 50 MG; Start 05/03/17 at 09:30 Diphenoxylate HCl/ Atropine (Lomotil Liquid Cup) 5 ml Q6H PRN PO DIARRHEA; Start 05/03/17 at 18:00 Desmopressin Acetate (Ddavp) 0.05 mg BID GTB Last administered on 05/04/17 09: 49; Admin Dose 0.05 MG; Start 05/03/17 at 21:00 Collagenase (Santyl) 1 applic DAILY TOP ; Start 05/04/17 at 14:30 FARHAT RUBIO MD May 04, 2017 15:36
[2017-05-04] MEDS: COLLAGENASE 30 GM TUBE TOP SCH (17:06)
--- NOTE | 2017-05-04 19:14 | CONS ---
Date/Time of Note Date/Time of Note DATE: 05/04/17 TIME: 19:12 Assessment/Plan Assessment/Plan Additional Assessment/Plan Septic shock off IV pressor Disseminated coccidiomycosis Pneumonia UTI Vent dependent respiratory failure Encephalopathy DVT -Blood pressure trend improved. Patient with DVT on anticoagulation. Fluids and electrolyte management as per our nephrology colleagues. No new cardiac orders at the current time Consultation Date/Type/Reason Admit Date/Time Apr 25, 2017 at 12:31 Initial Consult Date 04/25/17 Type of Consultation: cv Referring Provider: HELEN CASTELLANO MD 24 HR Interval Summary Free Text/Dictation Patient seen and examined, no new cardiac issues as per nursing staff Exam/Review of Systems Vital Signs Vitals Vital Signs Date Time Temp Pulse Resp B/P Pulse Ox O2 Delivery O2 Flow Rate FiO2 05/04/17 17:10 65 21 97 30 05/04/17 15:26 98.0 132/82 05/02/17 13:00 Mechanical Ventilator Intake and Output 05/03/17 05/03/17 05/04/17 15:00 23:00 07:00 Intake Total 1000 ml 100 ml 950 ml Output Total 2000 ml Balance 1000 ml -1900 ml 950 ml Exam Awake, no apparent distress Head: normocephalic Neck: other (Tracheostomy) Respiratory: other (Coarse breath sounds bilaterally, no wheezing) Cardiovascular: other (S1-S2 heard), regular rate and rhythm Gastrointestinal: bowel sounds, non-tender, soft Extremities: edema (Trace) Results Result Diagram: 05/04/17 0704 05/04/17 0814 Results 24 hrs Laboratory Tests Test 05/04/17 07:04 05/04/17 08:14 White Blood Count 4.0 #L Red Blood Count 3.58 L Hemoglobin 10.6 L Hematocrit 32.1 L Mean Corpuscular Volume 89.7 Mean Corpuscular Hemoglobin 29.6 Mean Corpuscular Hemoglobin Concent 33.0 Red Cell Distribution Width 14.7 H Platelet Count 214 # Mean Platelet Volume 11.8 H Neutrophils % 64.6 Lymphocytes % 21.6 Monocytes % 8.7 Eosinophils % 2.2 Basophils % 0.7 Nucleated Red Blood Cells % 0.0 Neutrophils # 2.6 Lymphocytes # 0.9 Monocytes # 0.4 Eosinophils # 0.1 Basophils # 0.0 Nucleated Red Blood Cells # 0.0 Sodium Level 135 Potassium Level 3.8 Chloride Level 100 # Carbon Dioxide Level 31 Anion Gap 8 Blood Urea Nitrogen 7 Creatinine 0.37 L Glucose Level 87 Calcium Level 9.8 Medications Medications Current Medications Acetaminophen (Tylenol Liquid) 650 mg Q4 PRN GTB PAIN AND OR ELEVATED TEMP Last administered on 05/01/17 09:37; Admin Dose 650 MG; Start 04/25/17 at 23:00 Eye Lubricant (Akwa Oint) 1 applic QID BOTH EYES Last administered on 17:06; Admin Dose 1 APPLIC; Start 04/26/17 at 09:00 Bromocriptine Mesylate (Parlodel) 30 mg DAILY GTB Last administered on 09:49; Admin Dose 30 MG; Start 04/26/17 at 09:00 Chlorhexidine Gluconate (Peridex) 15 ml BID MM Last administered on 05/04/17 09:50; Admin Dose 15 ML; Start 04/26/17 at 09:00 Ferrous Sulfate (Feosol Liquid Cup) 300 mg BID GTB Last administered on 09:49; Admin Dose 300 MG; Start 04/26/17 at 09:00 Hydrocortisone (Cortef) 20 mg DAILY GTB Last administered on 05/04/17 09:48; Admin Dose 20 MG; Start 04/26/17 at 09:00 Ondansetron HCl (Zofran Tab) 4 mg Q8 PRN GTB NAUSEA AND/OR VOMITING; Start at 23:00 Lactobacillus Acidophilus (Florajen3 Capsule) 1 each DAILY PEG Last administered on 05/04/17 09:50; Admin Dose 1 EACH; Start 04/26/17 at 09:00 Ascorbic Acid (Vitamin C) 250 mg BID GTB Last administered on 05/04/17 09:50; Admin Dose 250 MG; Start 04/26/17 at 09:00 Famotidine (Pepcid) 20 mg BID GTB Last administered on 05/04/17 09:48; Admin Dose 20 MG; Start 04/26/17 at 09:00 Morphine Sulfate 2 mg 2 mg Q4H PRN IV PAIN Last administered on 05/01/17 14:46 ; Admin Dose 2 MG; Start 04/26/17 at 16:30 Potassium Chloride/Dextrose/ Sod Cl (D5-1/2ns + KCl 40 Meq) 1,000 ml @ 70 mls/ hr [id number] IV Last administered on 05/04/17 17:06; Admin Dose 70 MLS/HR; Start 04/29/17 at 12:30 Posaconazole (Noxafil) 400 mg Q8 PO Last administered on 05/04/17 14:33; Admin Dose 400 MG; Start 04/30/17 at 22:00 Ergocalciferol (Drisdol Liquid (Ped)) 50,000 units Q7D GTB Last administered on 05/02/17 09:30; Admin Dose 50,000 UNITS; Start 05/02/17 at 09:30 Enoxaparin Sodium (Lovenox) 50 mg Q12 SC Last administered on 05/04/17 10:03; Admin Dose 50 MG; Start 05/03/17 at 09:30 Diphenoxylate HCl/ Atropine (Lomotil Liquid Cup) 5 ml Q6H PRN PO DIARRHEA; Start 05/03/17 at 18:00 Desmopressin Acetate (Ddavp) 0.05 mg BID GTB Last administered on 05/04/17 09: 49; Admin Dose 0.05 MG; Start 05/03/17 at 21:00 Collagenase (Santyl) 1 applic DAILY TOP Last administered on 05/04/17 17:06; Admin Dose 1 APPLIC; Start 05/04/17 at 14:30 Oscar Awan DO May 04, 2017 19:14
[2017-05-05] VITALS (23 sets, daily range): BP systolic 110–133; BP diastolic 68–77; PULSE 77–96; RESP 16–81
[2017-05-05] MEDS: POSACONAZOLE PO SCH ×3 (05:52→20:35)
[2017-05-05] MEDS: D5W-0.45 NACL + KCL 40 MEQ 1,000 ML IV SCH (05:53)
--- NOTE | 2017-05-05 08:22 | RADRPT ---
PROCEDURE: XR Chest. CLINICAL INDICATION: Shortness of breath. TECHNIQUE: Single frontal view. COMPARISON: 05/02/2017. 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 Extensive bilateral pulmonary air space disease in the mid and lower lung zones is unchanged. Air space disease in the right upper lung zone is slightly worse. The heart size is normal. There is no pleural effusion. There is no pneumothorax. IMPRESSION: 1. Slightly worse appearance of the right upper lung zone. 2. No other change from 05/02/2017. RPTAT: QQ .Garfield Sandhu MD, MD Date Time Electronically viewed and signed by .Garfield Sandhu MD, MD on 05/05/2017 08:22 .R/
[2017-05-05] MEDS: FERROUS SULFATE 60 MG/ML 5ML CUP GTB SCH ×2 (08:58→20:30)
[2017-05-05] MEDS: HYDROCORTISONE 20 MG TAB GTB SCH (08:58)
[2017-05-05] MEDS: OCULAR LUBRICANT 3.5 GM OPH OINT BOTH EYES SCH ×4 (08:58→20:35)
[2017-05-05] MEDS: ASCORBIC ACID 250 MG TAB GTB SCH ×2 (08:59→20:35)
[2017-05-05] MEDS: BROMOCRIPTINE 2.5 MG TAB GTB SCH (08:59)
[2017-05-05] MEDS: DESMOPRESSIN 0.1 MG TAB GTB SCH ×2 (08:59→20:30)
[2017-05-05] MEDS: L ACIDOPHIL/B LACTIS/B LONGUM CAPSULE PEG SCH (08:59)
[2017-05-05] MEDS: COLLAGENASE 30 GM TUBE TOP SCH (09:00)
[2017-05-05] MEDS: CHLORHEXIDINE GLUCONATE 15 ML UD CUP MM SCH ×2 (09:00→20:30)
[2017-05-05] MEDS: FAMOTIDINE 20 MG TAB GTB SCH ×3 (09:00→20:35)
[2017-05-05] MEDS: ENOXAPARIN 60 MG/0.6 ML SYG SC SCH ×2 (09:23→20:37)
--- NOTE | 2017-05-05 09:34 | CONS ---
Date/Time of Note Date/Time of Note DATE: 05/05/17 TIME: 09:31 Assessment/Plan Assessment/Plan Additional Assessment/Plan 1. Non Oliguric Acute kidney injury due to septic shock -Improved 2. Hypernaremia- resolved 3. Septic shock on levophed - Resolved 4. Acute on chronic resp failure s/p Tracheostomy- on ventilator, pulmonary has been following 5. H/o Fungal meningitis, currently comatose 6. H/O Right sided GRIEF COUNSELLOR shunt 7. 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 Plan: d/c iV fluids and K replacement Protocol, will follow up on daily labs in AM and replace electrolytes as needed Today Na, Cr and other electrolytes normal continue DDAVP at current dose of 0.05 mg BID ID, pulmonary has been following will follow up Consultation Date/Type/Reason Admit Date/Time Apr 25, 2017 at 12:31 Initial Consult Date 04/25/17 Type of Consultation: NEPHROLOGY Referring Provider: HELEN CASTELLANO MD Exam/Review of Systems Vital Signs Vitals Vital Signs Date Time Temp Pulse Resp B/P Pulse Ox O2 Delivery O2 Flow Rate FiO2 05/05/17 08:00 96 05/05/17 08:00 30 05/05/17 07:54 97.3 17 115/68 99 05/02/17 13:00 Mechanical Ventilator Intake and Output 05/04/17 05/04/17 05/05/17 15:00 23:00 07:00 Intake Total 1000 ml 1000 ml Output Total 1700 ml 900 ml Balance -700 ml 100 ml Exam Constitutional: non-verbal Neck: other (Tracheostomy), supple Respiratory: diminished breath sounds Cardiovascular: nl pulses Gastrointestinal: non-tender, other (G-tube), soft Extremities: normal pulses Neurological: lethargic Results Result Diagram: 05/04/17 0704 05/04/17 0814 Medications Medications Current Medications Acetaminophen (Tylenol Liquid) 650 mg Q4 PRN GTB PAIN AND OR ELEVATED TEMP Last administered on 05/01/17 09:37; Admin Dose 650 MG; Start 04/25/17 at 23:00 Eye Lubricant (Akwa Oint) 1 applic QID BOTH EYES Last administered on 08:58; Admin Dose 1 APPLIC; Start 04/26/17 at 09:00 Bromocriptine Mesylate (Parlodel) 30 mg DAILY GTB Last administered on 08:59; Admin Dose 30 MG; Start 04/26/17 at 09:00 Chlorhexidine Gluconate (Peridex) 15 ml BID MM Last administered on 05/05/17 09:00; Admin Dose 15 ML; Start 04/26/17 at 09:00 Ferrous Sulfate (Feosol Liquid Cup) 300 mg BID GTB Last administered on 08:58; Admin Dose 300 MG; Start 04/26/17 at 09:00 Hydrocortisone (Cortef) 20 mg DAILY GTB Last administered on 05/05/17 08:58; Admin Dose 20 MG; Start 04/26/17 at 09:00 Ondansetron HCl (Zofran Tab) 4 mg Q8 PRN GTB NAUSEA AND/OR VOMITING; Start at 23:00 Lactobacillus Acidophilus (Florajen3 Capsule) 1 each DAILY PEG Last administered on 05/05/17 08:59; Admin Dose 1 EACH; Start 04/26/17 at 09:00 Ascorbic Acid (Vitamin C) 250 mg BID GTB Last administered on 05/05/17 08:59; Admin Dose 250 MG; Start 04/26/17 at 09:00 Famotidine (Pepcid) 20 mg BID GTB Last administered on 05/05/17 09:00; Admin Dose 20 MG; Start 04/26/17 at 09:00 Morphine Sulfate 2 mg 2 mg Q4H PRN IV PAIN Last administered on 05/01/17 14:46 ; Admin Dose 2 MG; Start 04/26/17 at 16:30 Potassium Chloride/Dextrose/ Sod Cl (D5-1/2ns + KCl 40 Meq) 1,000 ml @ 70 mls/ hr [id number] IV Last administered on 05/05/17 05:53; Admin Dose 70 MLS/HR; Start 04/29/17 at 12:30 Posaconazole (Noxafil) 400 mg Q8 PO Last administered on 05/05/17 05:52; Admin Dose 400 MG; Start 04/30/17 at 22:00 Ergocalciferol (Drisdol Liquid (Ped)) 50,000 units Q7D GTB Last administered on 05/02/17 09:30; Admin Dose 50,000 UNITS; Start 05/02/17 at 09:30 Enoxaparin Sodium (Lovenox) 50 mg Q12 SC Last administered on 05/05/17 09:23; Admin Dose 50 MG; Start 05/03/17 at 09:30 Diphenoxylate HCl/ Atropine (Lomotil Liquid Cup) 5 ml Q6H PRN PO DIARRHEA; Start 05/03/17 at 18:00 Desmopressin Acetate (Ddavp) 0.05 mg BID GTB Last administered on 05/05/17 08: 59; Admin Dose 0.05 MG; Start 05/03/17 at 21:00 Collagenase (Santyl) 1 applic DAILY TOP Last administered on 05/05/17 09:00; Admin Dose 1 APPLIC; Start 05/04/17 at 14:30 FARHAT RUBIO MD May 05, 2017 09:34
--- NOTE | 2017-05-05 09:50 | CONS ---
Date/Time of Note Date/Time of Note DATE: 05/05/17 TIME: 09:48 Assessment/Plan Assessment/Plan Chief Complaint/Hosp Course assessment/impression - septic shock due to pneumonia and UTI - UTI due to ESBL+E. coli. Took pip/tazo and then meropenem - b/l pneumonia due to klebsiella, EBL+E. coli. Took pip/tazo and then meropenem - herpes labialis. Took 7 days of acyclovir for this - h/o disseminated coccidioides mycosis infection, meningitis. Cocci CF 1:16 on 04/26/2017 - s/p VPS placement - VDRF s/p tracheostomy - PEG dependet status - pancytopenia, due to septic shock on admission - thrombocytopenia due to sepsis, improving recommendations - panculture if temp >100.4F - continue posaconazole to 400 mg q8hrs and repeat the level on 05/07/2017 ( posaconazole trough level 0.32 on 04/27/2017, the dose was increased on 2016 according to the advise from JOE Galeano at neurosurgery department at [facility] informing us that Pt's posaconazole level had been low at [facility]) management d/w Pt's mother Problems: Consultation Date/Type/Reason Admit Date/Time Apr 25, 2017 at 12:31 Initial Consult Date 04/25/17 Type of Consultation: ID Referring Provider: HELEN CASTELLANO MD 24 HR Interval Summary Subjective hx not possible: pt non-verbal Exam/Review of Systems Vital Signs Vitals Vital Signs Date Time Temp Pulse Resp B/P Pulse Ox O2 Delivery O2 Flow Rate FiO2 05/05/17 08:00 96 05/05/17 08:00 30 05/05/17 07:54 97.3 17 115/68 99 05/02/17 13:00 Mechanical Ventilator Intake and Output 05/04/17 05/04/17 05/05/17 15:00 23:00 07:00 Intake Total 1000 ml 1000 ml Output Total 1700 ml 900 ml Balance -700 ml 100 ml Exam Constitutional: non-verbal Psych: confusion Head: other (s/p VPS placement) Eyes: nl conjunctiva, nl lids, nl sclera ENMT: nl external ears & nose, nl nasal mucosa & septum, other (ulcers on lower lip) Neck: other (trach) Respiratory: wheezing Cardiovascular: nl pulses, regular rate and rhythm Gastrointestinal: non-tender, other (GT), soft Genitourinary - Male: other (FC) Musculoskeletal: nl extremities to inspection Extremities: No edema Neurological: lethargic Skin: nl turgor Results Result Diagram: 05/04/1704 05/04/1714 Medications Medications Current Medications Acetaminophen (Tylenol Liquid) 650 mg Q4 PRN GTB PAIN AND OR ELEVATED TEMP Last administered on 05/01/17 09:37; Admin Dose 650 MG; Start 04/25/17 at 23:00 Eye Lubricant (Akwa Oint) 1 applic QID BOTH EYES Last administered on 08:58; Admin Dose 1 APPLIC; Start 04/26/17 at 09:00 Bromocriptine Mesylate (Parlodel) 30 mg DAILY GTB Last administered on 08:59; Admin Dose 30 MG; Start 04/26/17 at 09:00 Chlorhexidine Gluconate (Peridex) 15 ml BID MM Last administered on 05/05/17 09:00; Admin Dose 15 ML; Start 04/26/17 at 09:00 Ferrous Sulfate (Feosol Liquid Cup) 300 mg BID GTB Last administered on 08:58; Admin Dose 300 MG; Start 04/26/17 at 09:00 Hydrocortisone (Cortef) 20 mg DAILY GTB Last administered on 05/05/17 08:58; Admin Dose 20 MG; Start 04/26/17 at 09:00 Ondansetron HCl (Zofran Tab) 4 mg Q8 PRN GTB NAUSEA AND/OR VOMITING; Start at 23:00 Lactobacillus Acidophilus (Florajen3 Capsule) 1 each DAILY PEG Last administered on 05/05/17 08:59; Admin Dose 1 EACH; Start 04/26/17 at 09:00 Ascorbic Acid (Vitamin C) 250 mg BID GTB Last administered on 05/05/17 08:59; Admin Dose 250 MG; Start 04/26/17 at 09:00 Famotidine (Pepcid) 20 mg BID GTB Last administered on 05/05/17 09:00; Admin Dose 20 MG; Start 04/26/17 at 09:00 Morphine Sulfate (morphine) 2 mg Q4H PRN IV PAIN Last administered on 14:46; Admin Dose 2 MG; Start 04/26/17 at 16:30 Posaconazole (Noxafil) 400 mg Q8 PO Last administered on 05/05/17 05:52; Admin Dose 400 MG; Start 04/30/17 at 22:00 Ergocalciferol (Drisdol Liquid (Ped)) 50,000 units Q7D GTB Last administered on 05/02/17 09:30; Admin Dose 50,000 UNITS; Start 05/02/17 at 09:30 Enoxaparin Sodium (Lovenox) 50 mg Q12 SC Last administered on 05/05/17 09:23; Admin Dose 50 MG; Start 05/03/17 at 09:30 Diphenoxylate HCl/ Atropine (Lomotil Liquid Cup) 5 ml Q6H PRN PO DIARRHEA; Start 05/03/17 at 18:00 Desmopressin Acetate (Ddavp) 0.05 mg BID GTB Last administered on 05/05/17 08: 59; Admin Dose 0.05 MG; Start 05/03/17 at 21:00 Collagenase (Santyl) 1 applic DAILY TOP Last administered on 05/05/17 09:00; Admin Dose 1 APPLIC; Start 05/04/17 at 14:30 ELENI EVANS M.D. May 05, 2017 09:50
--- NOTE | 2017-05-05 11:31 | CONS ---
Date/Time of Note Date/Time of Note DATE: 05/05/17 TIME: 11:28 Assessment/Plan Assessment/Plan Additional Assessment/Plan Assessment and recommendations; 1. Patient admitted with gram-negative sepsis off antibiotic treatment. 2. History of disseminated coccidiodomycosis maintained on chronic antifungal regimen. 3. Chronic respiratory failure. Continue current treatment. [facility] Consultation Date/Type/Reason Admit Date/Time Apr 25, 2017 at 12:31 Initial Consult Date 04/25/17 Type of Consultation: Pulmonary Referring Provider: HELEN CASTELLANO MD 24 HR Interval Summary Free Text/Dictation Patient's condition remains stable. Has remained hemodynamically stable. Remains in persistent vegetative state and remains chronically ventilator dependent. General exam; young male, on ventilator via tracheostomy, unresponsive, currently in no distress. Exam/Review of Systems Vital Signs Vitals Vital Signs Date Time Temp Pulse Resp B/P Pulse Ox O2 Delivery O2 Flow Rate FiO2 05/05/17 11:21 98.6 80 17 110/68 98 05/05/17 08:00 30 05/02/17 13:00 Mechanical Ventilator Intake and Output 05/04/17 05/04/17 05/05/17 14:59 22:59 06:59 Intake Total 1000 ml 1000 ml Output Total 1700 ml 900 ml Balance -700 ml 100 ml Exam HEENT exam; supple neck, no JVD. No lymphadenopathy. Midline trachea. No thyromegaly. Tracheostomy in place. Pupils are midsize bilaterally. Patient has fair dentition. Neck Chest exam; clear to auscultation. S1-S2 audible, no murmurs. Regular rhythm. Abdomen exam; soft, G-tube in place. Bowel sounds audible. No organomegaly. Extremity exam; no peripheral edema. PHOTOGRAPHY COLORIST exam; patient remains in persistent vegetative state. Results Result Diagram: 05/04/17 0704 05/04/17 0814 Medications Medications Current Medications Acetaminophen (Tylenol Liquid) 650 mg Q4 PRN GTB PAIN AND OR ELEVATED TEMP Last administered on 05/01/17 09:37; Admin Dose 650 MG; Start 04/25/17 at 23:00 Eye Lubricant (Akwa Oint) 1 applic QID BOTH EYES Last administered on 08:58; Admin Dose 1 APPLIC; Start 04/26/17 at 09:00 Bromocriptine Mesylate (Parlodel) 30 mg DAILY GTB Last administered on 08:59; Admin Dose 30 MG; Start 04/26/17 at 09:00 Chlorhexidine Gluconate (Peridex) 15 ml BID MM Last administered on 05/05/17 09:00; Admin Dose 15 ML; Start 04/26/17 at 09:00 Ferrous Sulfate (Feosol Liquid Cup) 300 mg BID GTB Last administered on 08:58; Admin Dose 300 MG; Start 04/26/17 at 09:00 Hydrocortisone (Cortef) 20 mg DAILY GTB Last administered on 05/05/17 08:58; Admin Dose 20 MG; Start 04/26/17 at 09:00 Ondansetron HCl (Zofran Tab) 4 mg Q8 PRN GTB NAUSEA AND/OR VOMITING; Start at 23:00 Lactobacillus Acidophilus (Florajen3 Capsule) 1 each DAILY PEG Last administered on 05/05/17 08:59; Admin Dose 1 EACH; Start 04/26/17 at 09:00 Ascorbic Acid (Vitamin C) 250 mg BID GTB Last administered on 05/05/17 08:59; Admin Dose 250 MG; Start 04/26/17 at 09:00 Famotidine (Pepcid) 20 mg BID GTB Last administered on 05/05/17 09:00; Admin Dose 20 MG; Start 04/26/17 at 09:00 Morphine Sulfate (morphine) 2 mg Q4H PRN IV PAIN Last administered on 14:46; Admin Dose 2 MG; Start 04/26/17 at 16:30 Posaconazole (Noxafil) 400 mg Q8 PO Last administered on 05/05/17 05:52; Admin Dose 400 MG; Start 04/30/17 at 22:00 Ergocalciferol (Drisdol Liquid (Ped)) 50,000 units Q7D GTB Last administered on 05/02/17 09:30; Admin Dose 50,000 UNITS; Start 05/02/17 at 09:30 Enoxaparin Sodium (Lovenox) 50 mg Q12 SC Last administered on 05/05/17 09:23; Admin Dose 50 MG; Start 05/03/17 at 09:30 Diphenoxylate HCl/ Atropine (Lomotil Liquid Cup) 5 ml Q6H PRN PO DIARRHEA; Start 05/03/17 at 18:00 Desmopressin Acetate (Ddavp) 0.05 mg BID GTB Last administered on 05/05/17 08: 59; Admin Dose 0.05 MG; Start 05/03/17 at 21:00 Collagenase (Santyl) 1 applic DAILY TOP Last administered on 05/05/17 09:00; Admin Dose 1 APPLIC; Start 05/04/17 at 14:30 CHITO WALLS May 05, 2017 11:31
--- NOTE | 2017-05-05 12:06 | CONS ---
Date/Time of Note Date/Time of Note DATE: 05/05/17 TIME: 12:05 Assessment/Plan Assessment/Plan Additional Assessment/Plan Septic shock off IV pressor Disseminated coccidiomycosis Pneumonia UTI Vent dependent respiratory failure Encephalopathy DVT -Blood pressure trend overall stable. Patient with DVT on anticoagulation. Fluids and electrolyte management as per our nephrology colleagues. No new cardiac orders at the current time Consultation Date/Type/Reason Admit Date/Time Apr 25, 2017 at 12:31 Initial Consult Date 04/25/17 Type of Consultation: cv Referring Provider: HELEN CASTELLANO MD 24 HR Interval Summary Free Text/Dictation Patient seen and examined, mother at bedside Exam/Review of Systems Vital Signs Vitals Vital Signs Date Time Temp Pulse Resp B/P Pulse Ox O2 Delivery O2 Flow Rate FiO2 05/05/17 11:21 98.6 80 17 110/68 98 05/05/17 08:00 30 05/02/17 13:00 Mechanical Ventilator Intake and Output 05/04/17 05/04/17 05/05/17 15:00 23:00 07:00 Intake Total 1000 ml 1000 ml Output Total 1700 ml 900 ml Balance -700 ml 100 ml Exam No apparent distress, mother at bedside Head: normocephalic Neck: other (Tracheostomy) Respiratory: other (Coarse breath sounds bilaterally, no wheezing) Cardiovascular: other (S1-S2 heard), regular rate and rhythm Gastrointestinal: bowel sounds, non-tender, soft Extremities: edema Results Result Diagram: 05/04/17 0704 05/04/17 0814 Medications Medications Current Medications Acetaminophen (Tylenol Liquid) 650 mg Q4 PRN GTB PAIN AND OR ELEVATED TEMP Last administered on 05/01/17 09:37; Admin Dose 650 MG; Start 04/25/17 at 23:00 Eye Lubricant (Akwa Oint) 1 applic QID BOTH EYES Last administered on 08:58; Admin Dose 1 APPLIC; Start 04/26/17 at 09:00 Bromocriptine Mesylate (Parlodel) 30 mg DAILY GTB Last administered on 08:59; Admin Dose 30 MG; Start 04/26/17 at 09:00 Chlorhexidine Gluconate (Peridex) 15 ml BID MM Last administered on 05/05/17 09:00; Admin Dose 15 ML; Start 04/26/17 at 09:00 Ferrous Sulfate (Feosol Liquid Cup) 300 mg BID GTB Last administered on 08:58; Admin Dose 300 MG; Start 04/26/17 at 09:00 Hydrocortisone (Cortef) 20 mg DAILY GTB Last administered on 05/05/17 08:58; Admin Dose 20 MG; Start 04/26/17 at 09:00 Ondansetron HCl (Zofran Tab) 4 mg Q8 PRN GTB NAUSEA AND/OR VOMITING; Start at 23:00 Lactobacillus Acidophilus (Florajen3 Capsule) 1 each DAILY PEG Last administered on 05/05/17 08:59; Admin Dose 1 EACH; Start 04/26/17 at 09:00 Ascorbic Acid (Vitamin C) 250 mg BID GTB Last administered on 05/05/17 08:59; Admin Dose 250 MG; Start 04/26/17 at 09:00 Famotidine (Pepcid) 20 mg BID GTB Last administered on 05/05/17 09:00; Admin Dose 20 MG; Start 04/26/17 at 09:00 Morphine Sulfate (morphine) 2 mg Q4H PRN IV PAIN Last administered on 14:46; Admin Dose 2 MG; Start 04/26/17 at 16:30 Posaconazole (Noxafil) 400 mg Q8 PO Last administered on 05/05/17 05:52; Admin Dose 400 MG; Start 04/30/17 at 22:00 Ergocalciferol (Drisdol Liquid (Ped)) 50,000 units Q7D GTB Last administered on 05/02/17 09:30; Admin Dose 50,000 UNITS; Start 05/02/17 at 09:30 Enoxaparin Sodium (Lovenox) 50 mg Q12 SC Last administered on 05/05/17 09:23; Admin Dose 50 MG; Start 05/03/17 at 09:30 Diphenoxylate HCl/ Atropine (Lomotil Liquid Cup) 5 ml Q6H PRN PO DIARRHEA; Start 05/03/17 at 18:00 Desmopressin Acetate (Ddavp) 0.05 mg BID GTB Last administered on 05/05/17 08: 59; Admin Dose 0.05 MG; Start 05/03/17 at 21:00 Collagenase (Santyl) 1 applic DAILY TOP Last administered on 05/05/17t 09:00; Admin Dose 1 APPLIC; Start 05/04/17 at 14:30 Oscar Awan DO May 05, 2017 12:06
--- NOTE | 2017-05-05 12:45 | PN ---
Date/Time of Note Date/Time of Note DATE: 05/05/17 TIME: 12:42 Assessment/Plan VTE Prophylaxis VTE Prophylaxis Intervention: SCD's Lines/Catheters IV Catheter Type (from Nrs): PICC Line Central line still needed: Yes Urinary Cath still in place: Yes Reason Cath still needed: urinary retention Assessment/Plan Chief Complaint/Hosp Course Diarrhea is getting better. Assessment/Plan - Septic shock due to bilateral pneumonia and UTI, resolving. Continue antibiotics per ID. Dr Brown is following in infection disease consultation. 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 Continue Lovenox. - Acute kidney injury, resolving. - Hypernatremia, resolved. Dr Sorensen is following in nephrology consultation. - Hypokalemia, continue k protocol. - Pancytopenia most likely secondary to sepsis - Dysphagia with PEG. Continue tube G-tube feeding - VDRF with tracheostomy - Hydrocephalus, status post TRANSPORT OPERATIONS INSPECTOR shunt. - Polyuria, improving. - Diarrhea Further recommendations based on clinical course. Plan of care discussed with Dr. Dozier Problems: Exam/Review of Systems Vital Signs Vitals Vital Signs Date Time Temp Pulse Resp B/P Pulse Ox O2 Delivery O2 Flow Rate FiO2 05/05/17 11:30 80 21 100 30 05/05/17 11:21 98.6 110/68 05/02/17 13:00 Mechanical Ventilator Intake and Output 05/04/17 05/04/17 05/05/17 15:00 23:00 07:00 Intake Total 1000 ml 1000 ml Output Total 1700 ml 900 ml Balance -700 ml 100 ml Exam Constitutional: non-verbal Neck: other (Tracheostomy), supple Respiratory: diminished breath sounds Cardiovascular: nl pulses Gastrointestinal: non-tender, other (G-tube), soft Extremities: normal pulses Neurological: lethargic Results Result Diagram: 05/04/17 0704 05/04/17 0814 Medications Medications Current Medications Acetaminophen (Tylenol Liquid) 650 mg Q4 PRN GTB PAIN AND OR ELEVATED TEMP Last administered on 05/01/17 09:37; Admin Dose 650 MG; Start 04/25/17 at 23:00 Eye Lubricant (Akwa Oint) 1 applic QID BOTH EYES Last administered on 08:58; Admin Dose 1 APPLIC; Start 04/26/17 at 09:00 Bromocriptine Mesylate (Parlodel) 30 mg DAILY GTB Last administered on 08:59; Admin Dose 30 MG; Start 04/26/17 at 09:00 Chlorhexidine Gluconate (Peridex) 15 ml BID MM Last administered on 05/05/17 09:00; Admin Dose 15 ML; Start 04/26/17 at 09:00 Ferrous Sulfate (Feosol Liquid Cup) 300 mg BID GTB Last administered on 08:58; Admin Dose 300 MG; Start 04/26/17 at 09:00 Hydrocortisone (Cortef) 20 mg DAILY GTB Last administered on 05/05/17 08:58; Admin Dose 20 MG; Start 04/26/17 at 09:00 Ondansetron HCl (Zofran Tab) 4 mg Q8 PRN GTB NAUSEA AND/OR VOMITING; Start at 23:00 Lactobacillus Acidophilus (Florajen3 Capsule) 1 each DAILY PEG Last administered on 05/05/17 08:59; Admin Dose 1 EACH; Start 04/26/17 at 09:00 Ascorbic Acid (Vitamin C) 250 mg BID GTB Last administered on 05/05/17 08:59; Admin Dose 250 MG; Start 04/26/17 at 09:00 Famotidine (Pepcid) 20 mg BID GTB Last administered on 05/05/17 09:00; Admin Dose 20 MG; Start 04/26/17 at 09:00 Morphine Sulfate (morphine) 2 mg Q4H PRN IV PAIN Last administered on 14:46; Admin Dose 2 MG; Start 04/26/17 at 16:30 Posaconazole (Noxafil) 400 mg Q8 PO Last administered on 05/05/17 05:52; Admin Dose 400 MG; Start 04/30/17 at 22:00 Ergocalciferol (Drisdol Liquid (Ped)) 50,000 units Q7D GTB Last administered on 05/02/17 09:30; Admin Dose 50,000 UNITS; Start 05/02/17 at 09:30 Enoxaparin Sodium (Lovenox) 50 mg Q12 SC Last administered on 05/05/17 09:23; Admin Dose 50 MG; Start 05/03/17 at 09:30 Diphenoxylate HCl/ Atropine (Lomotil Liquid Cup) 5 ml Q6H PRN PO DIARRHEA; Start 05/03/17 at 18:00 Desmopressin Acetate (Ddavp) 0.05 mg BID GTB Last administered on 05/05/17 08: 59; Admin Dose 0.05 MG; Start 05/03/17 at 21:00 Collagenase (Santyl) 1 applic DAILY TOP Last administered on 05/05/17 09:00; Admin Dose 1 APPLIC; Start 05/04/17 at 14:30 MANDIE DAVE May 05, 2017 12:45
[2017-05-05] MEDS: ACETAMINOPHEN 650MG/20.3ML CUP GTB PRN (13:23)
[2017-05-05 14:59] LABS: BASOPHILS % 0.6 % (0.0-2.0); EOSINOPHILS % 0.4 % (0.0-7.0); HEMATOCRIT 27.8 % (42.0-52.0); HEMOGLOBIN 9.5 g/dl (14.0-18.0); LYMPHOCYTES # 0.9 10^3/ul (0.8-2.9); MEAN CORPUSCULAR HEMOGLOBIN 30.2 pg (29.0-33.0); MEAN CORPUSCULAR HGB CONC 34.2 g/dl (32.0-37.0); MEAN CORPUSCULAR VOLUME 88.3 fl (82.0-101.0); MEAN PLATELET VOLUME 11.6 fl (7.4-10.4); MONOCYTE # 0.3 10^3/ul (0.3-0.9); MONOCYTES % 5.3 % (0.0-11.0); NEUTROPHIL # 3.6 10^3/ul (1.6-7.5); NEUTROPHILS % 73.4 % (39.0-77.0); PLATELET COUNT 262 10^3/UL (140-415); RED BLOOD COUNT 3.15 10^6/ul (4.70-6.10); RED CELL DISTRIBUTION WIDTH 14.3 % (11.5-14.5); WHITE BLOOD COUNT 4.9 10^3/ul (4.8-10.8)
[2017-05-05 15:32] LABS: CALCIUM 9.8 mg/dl (8.4-10.2); CREATININE 0.41 mg/dl (0.61-1.24); POTASSIUM 3.2 mmol/L (3.5-5.1)
[2017-05-05] MEDS ORDERED: POTASSIUM CHLORIDE 20 MEQ POWDER FOR ORAL SOLN GTB ONE (17:30)
[2017-05-06] VITALS (24 sets, daily range): BP systolic 109–130; BP diastolic 64–87; PULSE 70–104; RESP 16–18
[2017-05-06] MEDS: POSACONAZOLE PO SCH ×3 (05:47→20:49)
--- NOTE | 2017-05-06 08:16 | PN ---
Date/Time of Note Date/Time of Note DATE: 05/06/17 TIME: 08:16 Assessment/Plan VTE Prophylaxis VTE Prophylaxis Intervention: SCD's Lines/Catheters IV Catheter Type (from Nrs): PICC Line Central line still needed: No Urinary Cath still in place: Yes Reason Cath still needed: urinary retention Assessment/Plan Assessment/Plan Septic shock off IV pressor Disseminated coccidiomycosis Pneumonia UTI Vent dependent respiratory failure Encephalopathy DVT -Blood pressure trend overall stable. Patient with DVT on anticoagulation. Fluids and electrolyte management as per our nephrology colleagues. No new cardiac orders at the current time -replete potassium Subjective 24 Hr Interval Summary Free Text/Dictation The patient with no cahgne Exam/Review of Systems Vital Signs Vitals Vital Signs Date Time Temp Pulse Resp B/P Pulse Ox O2 Delivery O2 Flow Rate FiO2 05/06/17 07:51 98.3 74 18 109/64 98 05/06/17 05:15 30 05/02/17 13:00 Mechanical Ventilator Intake and Output 05/05/17 05/05/17 05/06/17 15:00 23:00 07:00 Intake Total 1000 ml 1000 ml Output Total 1600 ml 1800 ml 1800 ml Balance -600 ml -1800 ml -800 ml Results Result Diagram: 05/05/17 1430 05/05/17 1430 Results 24 hrs Laboratory Tests Test 05/05/17 14:30 White Blood Count 4.9 # Red Blood Count 3.15 L Hemoglobin 9.5 L Hematocrit 27.8 L Mean Corpuscular Volume 88.3 Mean Corpuscular Hemoglobin 30.2 Mean Corpuscular Hemoglobin Concent 34.2 Red Cell Distribution Width 14.3 Platelet Count 262 # Mean Platelet Volume 11.6 H Neutrophils % 73.4 Lymphocytes % 18.0 Monocytes % 5.3 Eosinophils % 0.4 Basophils % 0.6 Nucleated Red Blood Cells % 0.0 Neutrophils # 3.6 Lymphocytes # 0.9 Monocytes # 0.3 Eosinophils # 0.0 Basophils # 0.0 Nucleated Red Blood Cells # 0.0 Sodium Level 129 L Potassium Level 3.2 L Chloride Level 92 L Carbon Dioxide Level 31 Anion Gap 9 Blood Urea Nitrogen 8 Creatinine 0.41 L Glucose Level 114 Calcium Level 9.8 Medications Medications Current Medications Acetaminophen (Tylenol Liquid) 650 mg Q4 PRN GTB PAIN AND OR ELEVATED TEMP Last administered on 05/05/17t 13:23; Admin Dose 650 MG; Start 04/25/17 at 23:00 Eye Lubricant (Akwa Oint) 1 applic QID BOTH EYES Last administered on 20:35; Admin Dose 1 APPLIC; Start 04/26/17 at 09:00 Bromocriptine Mesylate (Parlodel) 30 mg DAILY GTB Last administered on 08:59; Admin Dose 30 MG; Start 04/26/17 at 09:00 Chlorhexidine Gluconate (Peridex) 15 ml BID MM Last administered on 05/05/17 20:30; Admin Dose 15 ML; Start 04/26/17 at 09:00 Ferrous Sulfate (Feosol Liquid Cup) 300 mg BID GTB Last administered on 20:30; Admin Dose 300 MG; Start 04/26/17 at 09:00 Hydrocortisone (Cortef) 20 mg DAILY GTB Last administered on 05/05/17 08:58; Admin Dose 20 MG; Start 04/26/17 at 09:00 Ondansetron HCl (Zofran Tab) 4 mg Q8 PRN GTB NAUSEA AND/OR VOMITING; Start at 23:00 Lactobacillus Acidophilus (Florajen3 Capsule) 1 each DAILY PEG Last administered on 05/05/17 08:59; Admin Dose 1 EACH; Start 04/26/17 at 09:00 Ascorbic Acid (Vitamin C) 250 mg BID GTB Last administered on 05/05/17 20:35; Admin Dose 250 MG; Start 04/26/17 at 09:00 Famotidine (Pepcid) 20 mg BID GTB Last administered on 05/05/17 20:35; Admin Dose 20 MG; Start 04/26/17 at 09:00 Morphine Sulfate (morphine) 2 mg Q4H PRN IV PAIN Last administered on 14:46; Admin Dose 2 MG; Start 04/26/17 at 16:30 Posaconazole (Noxafil) 400 mg Q8 PO Last administered on 05/06/17 05:47; Admin Dose 400 MG; Start 04/30/17 at 22:00 Ergocalciferol (Drisdol Liquid (Ped)) 50,000 units Q7D GTB Last administered on 05/02/17 09:30; Admin Dose 50,000 UNITS; Start 05/02/17 at 09:30 Enoxaparin Sodium (Lovenox) 50 mg Q12 SC Last administered on 05/05/17 20:37; Admin Dose 50 MG; Start 05/03/17 at 09:30 Diphenoxylate HCl/ Atropine (Lomotil Liquid Cup) 5 ml Q6H PRN PO DIARRHEA; Start 05/03/17 at 18:00 Desmopressin Acetate (Ddavp) 0.05 mg BID GTB Last administered on 05/05/17 20: 30; Admin Dose 0.05 MG; Start 05/03/17 at 21:00 Collagenase (Santyl) 1 applic DAILY TOP Last administered on 05/05/17 09:00; Admin Dose 1 APPLIC; Start 05/04/17 at 14:30 ORI SESAY MD May 06, 2017 08:16
[2017-05-06] MEDS: COLLAGENASE 30 GM TUBE TOP SCH (09:00)
[2017-05-06 09:04] LABS: BASOPHILS % 0.5 % (0.0-2.0); EOSINOPHILS # 0.1 10^3/ul (0.0-0.5); EOSINOPHILS % 0.7 % (0.0-7.0); HEMATOCRIT 29.3 % (42.0-52.0); HEMOGLOBIN 9.5 g/dl (14.0-18.0); LYMPHOCYTES # 0.8 10^3/ul (0.8-2.9); LYMPHOCYTES % 11.1 % (15.0-51.0); MEAN CORPUSCULAR HEMOGLOBIN 28.4 pg (29.0-33.0); MEAN CORPUSCULAR HGB CONC 32.4 g/dl (32.0-37.0); MEAN CORPUSCULAR VOLUME 87.5 fl (82.0-101.0); MEAN PLATELET VOLUME 11.4 fl (7.4-10.4); MONOCYTE # 0.6 10^3/ul (0.3-0.9); MONOCYTES % 7.5 % (0.0-11.0); PLATELET COUNT 292 10^3/UL (140-415); RED BLOOD COUNT 3.35 10^6/ul (4.70-6.10); RED CELL DISTRIBUTION WIDTH 14.5 % (11.5-14.5); WHITE BLOOD COUNT 7.6 10^3/ul (4.8-10.8)
[2017-05-06 09:31] LABS: CALCIUM 10.1 mg/dl (8.4-10.2); CREATININE 0.43 mg/dl (0.61-1.24); POTASSIUM 3.2 mmol/L (3.5-5.1)
[2017-05-06] MEDS: ENOXAPARIN 60 MG/0.6 ML SYG SC SCH ×2 (10:11→20:47)
[2017-05-06] MEDS: CHLORHEXIDINE GLUCONATE 15 ML UD CUP MM SCH ×2 (10:12→20:41)
[2017-05-06] MEDS: BROMOCRIPTINE 2.5 MG TAB GTB SCH (10:12)
[2017-05-06] MEDS: ASCORBIC ACID 250 MG TAB GTB SCH ×2 (10:12→20:41)
[2017-05-06] MEDS: FERROUS SULFATE 60 MG/ML 5ML CUP GTB SCH ×2 (10:12→20:41)
[2017-05-06] MEDS: L ACIDOPHIL/B LACTIS/B LONGUM CAPSULE PEG SCH (10:13)
[2017-05-06] MEDS: OCULAR LUBRICANT 3.5 GM OPH OINT BOTH EYES SCH ×4 (10:13→20:42)
[2017-05-06] MEDS: HYDROCORTISONE 20 MG TAB GTB SCH (10:13)
--- NOTE | 2017-05-06 11:41 | CONS ---
Date/Time of Note Date/Time of Note DATE: 05/06/17 TIME: 11:40 Assessment/Plan Assessment/Plan Chief Complaint/Hosp Course assessment/impression - septic shock due to pneumonia and UTI - UTI due to ESBL+E. coli. Took pip/tazo and then meropenem - b/l pneumonia due to klebsiella, EBL+E. coli. Took pip/tazo and then meropenem - herpes labialis. Took 7 days of acyclovir for this - h/o disseminated coccidioides mycosis infection, meningitis. 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 management d/w Pt's brother Problems: Consultation Date/Type/Reason Admit Date/Time Apr 25, 2017 at 12:31 Initial Consult Date 04/25/17 Type of Consultation: ID Referring Provider: HELEN CASTELLANO MD 24 HR Interval Summary Subjective hx not possible: pt non-verbal Exam/Review of Systems Vital Signs Vitals Vital Signs Date Time Temp Pulse Resp B/P Pulse Ox O2 Delivery O2 Flow Rate FiO2 05/06/17 08:22 104 05/06/17 07:51 98.3 18 109/64 98 05/06/17 05:15 30 05/02/17 13:00 Mechanical Ventilator Intake and Output 05/05/17 05/05/17 05/06/17 15:00 23:00 07:00 Intake Total 1000 ml 1000 ml Output Total 1600 ml 1800 ml 1800 ml Balance -600 ml -1800 ml -800 ml Exam Constitutional: frail, non-verbal Psych: confusion Head: atraumatic, normocephalic Eyes: nl conjunctiva, other (L ptosis) ENMT: other (eschar, ulcers of crusts on the lower lip) Neck: other (trach) Respiratory: crackles/rales, wheezing Cardiovascular: nl pulses, regular rate and rhythm Gastrointestinal: non-tender, other (GT), soft Genitourinary - Male: other (FC) Musculoskeletal: nl extremities to inspection Extremities: No edema Neurological: unresponsive Skin: nl turgor Results Result Diagram: 05/06/17 0819 05/06/17 08 Results 24 hrs Laboratory Tests Test 05/05/17 14:30 05/06/17 08:19 White Blood Count 4.9 # 7.6 # Red Blood Count 3.15 L 3.35 L Hemoglobin 9.5 L 9.5 L Hematocrit 27.8 L 29.3 L Mean Corpuscular Volume 88.3 87.5 Mean Corpuscular Hemoglobin 30.2 28.4 L Mean Corpuscular Hemoglobin Concent 34.2 32.4 Red Cell Distribution Width 14.3 14.5 Platelet Count 262 # 292 Mean Platelet Volume 11.6 H 11.4 H Neutrophils % 73.4 79.0 H Lymphocytes % 18.0 11.1 L Monocytes % 5.3 7.5 Eosinophils % 0.4 0.7 Basophils % 0.6 0.5 Nucleated Red Blood Cells % 0.0 0.0 Neutrophils # 3.6 6.0 Lymphocytes # 0.9 0.8 Monocytes # 0.3 0.6 Eosinophils # 0.0 0.1 Basophils # 0.0 0.0 Nucleated Red Blood Cells # 0.0 0.0 Sodium Level 129 L 130 L Potassium Level 3.2 L 3.2 L Chloride Level 92 L 92 L Carbon Dioxide Level 31 32 H Anion Gap 9 9 Blood Urea Nitrogen 8 9 Creatinine 0.41 L 0.43 L Glucose Level 114 113 Calcium Level 9.8 10.1 Medications Medications Current Medications Acetaminophen (Tylenol Liquid) 650 mg Q4 PRN GTB PAIN AND OR ELEVATED TEMP Last administered on 05/05/17 13:23; Admin Dose 650 MG; Start 04/25/17 at 23:00 Eye Lubricant (Akwa Oint) 1 applic QID BOTH EYES Last administered on 10:13; Admin Dose 1 APPLIC; Start 04/26/17 at 09:00 Bromocriptine Mesylate (Parlodel) 30 mg DAILY GTB Last administered on 10:12; Admin Dose 30 MG; Start 04/26/17 at 09:00 Chlorhexidine Gluconate (Peridex) 15 ml BID MM Last administered on 05/06/17 10:12; Admin Dose 15 ML; Start 04/26/17 at 09:00 Ferrous Sulfate (Feosol Liquid Cup) 300 mg BID GTB Last administered on 10:12; Admin Dose 300 MG; Start 04/26/17 at 09:00 Hydrocortisone (Cortef) 20 mg DAILY GTB Last administered on 05/06/17 10:13; Admin Dose 20 MG; Start 04/26/17 at 09:00 Ondansetron HCl (Zofran Tab) 4 mg Q8 PRN GTB NAUSEA AND/OR VOMITING; Start at 23:00 Lactobacillus Acidophilus (Florajen3 Capsule) 1 each DAILY PEG Last administered on 05/06/17 10:13; Admin Dose 1 EACH; Start 04/26/17 at 09:00 Ascorbic Acid (Vitamin C) 250 mg BID GTB Last administered on 05/06/17 10:12; Admin Dose 250 MG; Start 04/26/17 at 09:00 Famotidine (Pepcid) 20 mg BID GTB Last administered on 05/05/17 20:35; Admin Dose 20 MG; Start 04/26/17 at 09:00 Morphine Sulfate (morphine) 2 mg Q4H PRN IV PAIN Last administered on 14:46; Admin Dose 2 MG; Start 04/26/17 at 16:30 Posaconazole (Noxafil) 400 mg Q8 PO Last administered on 05/06/17 05:47; Admin Dose 400 MG; Start 04/30/17 at 22:00 Ergocalciferol (Drisdol Liquid (Ped)) 50,000 units Q7D GTB Last administered on 05/02/17 09:30; Admin Dose 50,000 UNITS; Start 05/02/17 at 09:30 Enoxaparin Sodium (Lovenox) 50 mg Q12 SC Last administered on 05/06/17 10:11; Admin Dose 50 MG; Start 05/03/17 at 09:30 Diphenoxylate HCl/ Atropine (Lomotil Liquid Cup) 5 ml Q6H PRN PO DIARRHEA; Start 05/03/17 at 18:00 Desmopressin Acetate (Ddavp) 0.05 mg BID GTB Last administered on 05/05/17 20: 30; Admin Dose 0.05 MG; Start 05/03/17 at 21:00 Collagenase 1 applic 1 applic DAILY TOP Last administered on 05/06/17 09:00; Admin Dose 1 APPLIC; Start 05/04/17 at 14:30 Potassium Chloride 20 meq/ Sodium Chloride 110 ml @ 55 mls/hr ONCE ONCE IVPB ; Start 05/06/17 at 12:30; Stop 05/06/17 at 14:29 Potassium Chloride/Sodium Chloride (NS-KCl 20 Meq) 1,000 ml @ 80 mls/hr [id number] IV ; Start 05/06/17 at 11:30 ELENI EVANS M.D. May 06, 2017 11:41
--- NOTE | 2017-05-06 11:43 | CONS ---
Date/Time of Note Date/Time of Note DATE: 05/06/17 TIME: 11:40 Assessment/Plan Assessment/Plan Additional Assessment/Plan Data setting; AC of 16, tidal volume 400, PEEP of 5, 30% FiO2. Assessment and recommendations; 1. Patient admitted with E. coli UTI with significant clinical improvement, off treatment now. 2. History of disseminated coccidiomycosis pneumonia. 3. Severe anoxic brain injury, patient remains in persistent vegetative state. 4. Chronic respiratory failure. Continue current treatment. Consider discharge. Consultation Date/Type/Reason Admit Date/Time Apr 25, 2017 at 12:31 Initial Consult Date 04/25/17 Type of Consultation: Pulmonary Referring Provider: HELEN CASTELLANO MD 24 HR Interval Summary Free Text/Dictation Patient's condition is stable. Remains in persistent vegetative state. Has remained hemodynamically stable. General exam; young male, on ventilator via tracheostomy, unresponsive, currently in no distress. Exam/Review of Systems Vital Signs Vitals Vital Signs Date Time Temp Pulse Resp B/P Pulse Ox O2 Delivery O2 Flow Rate FiO2 05/06/17 08:22 104 05/06/17 07:51 98.3 18 109/64 98 05/06/17 05:15 30 05/02/17 13:00 Mechanical Ventilator Intake and Output 05/05/17 05/05/17 05/06/17 15:00 23:00 07:00 Intake Total 1000 ml 1000 ml Output Total 1600 ml 1800 ml 1800 ml Balance -600 ml -1800 ml -800 ml Exam H ENT exam; supple neck, no JVD. No lymphadenopathy. Midline trachea. No thyromegaly. Tracheostomy in place. Patient has fair dentition. Chest exam; diminished but clear breath sounds. S1-S2 audible, no murmurs. Regular rhythm. Abdomen exam; soft, G-tube in place. Bowel sounds audible. Abdomen is nondistended. Extremity exam; no edema. [employer] exam; patient remains in persistent vegetative state. Results Result Diagram: 05/06/1781805/06/17818 Results 24 hrs Laboratory Tests Test 05/05/17 14:30 05/06/17 08:19 White Blood Count 4.9 # 7.6 # Red Blood Count 3.15 L 3.35 L Hemoglobin 9.5 L 9.5 L Hematocrit 27.8 L 29.3 L Mean Corpuscular Volume 88.3 87.5 Mean Corpuscular Hemoglobin 30.2 28.4 L Mean Corpuscular Hemoglobin Concent 34.2 32.4 Red Cell Distribution Width 14.3 14.5 Platelet Count 262 # 292 Mean Platelet Volume 11.6 H 11.4 H Neutrophils % 73.4 79.0 H Lymphocytes % 18.0 11.1 L Monocytes % 5.3 7.5 Eosinophils % 0.4 0.7 Basophils % 0.6 0.5 Nucleated Red Blood Cells % 0.0 0.0 Neutrophils # 3.6 6.0 Lymphocytes # 0.9 0.8 Monocytes # 0.3 0.6 Eosinophils # 0.0 0.1 Basophils # 0.0 0.0 Nucleated Red Blood Cells # 0.0 0.0 Sodium Level 129 L 130 L Potassium Level 3.2 L 3.2 L Chloride Level 92 L 92 L Carbon Dioxide Level 31 32 H Anion Gap 9 9 Blood Urea Nitrogen 8 9 Creatinine 0.41 L 0.43 L Glucose Level 114 113 Calcium Level 9.8 10.1 Medications Medications Current Medications Acetaminophen (Tylenol Liquid) 650 mg Q4 PRN GTB PAIN AND OR ELEVATED TEMP Last administered on 05/05/17 13:23; Admin Dose 650 MG; Start 04/25/17 at 23:00 Eye Lubricant (Akwa Oint) 1 applic QID BOTH EYES Last administered on 10:13; Admin Dose 1 APPLIC; Start 04/26/17 at 09:00 Bromocriptine Mesylate (Parlodel) 30 mg DAILY GTB Last administered on 10:12; Admin Dose 30 MG; Start 04/26/17 at 09:00 Chlorhexidine Gluconate (Peridex) 15 ml BID MM Last administered on 05/06/17 10:12; Admin Dose 15 ML; Start 04/26/17 at 09:00 Ferrous Sulfate (Feosol Liquid Cup) 300 mg BID GTB Last administered on 10:12; Admin Dose 300 MG; Start 04/26/17 at 09:00 Hydrocortisone (Cortef) 20 mg DAILY GTB Last administered on 05/06/17 10:13; Admin Dose 20 MG; Start 04/26/17 at 09:00 Ondansetron HCl (Zofran Tab) 4 mg Q8 PRN GTB NAUSEA AND/OR VOMITING; Start at 23:00 Lactobacillus Acidophilus (Florajen3 Capsule) 1 each DAILY PEG Last administered on 05/06/17 10:13; Admin Dose 1 EACH; Start 04/26/17 at 09:00 Ascorbic Acid (Vitamin C) 250 mg BID GTB Last administered on 05/06/17 10:12; Admin Dose 250 MG; Start 04/26/17 at 09:00 Famotidine (Pepcid) 20 mg BID GTB Last administered on 05/05/17 20:35; Admin Dose 20 MG; Start 04/26/17 at 09:00 Morphine Sulfate (morphine) 2 mg Q4H PRN IV PAIN Last administered on 14:46; Admin Dose 2 MG; Start 04/26/17 at 16:30 Posaconazole (Noxafil) 400 mg Q8 PO Last administered on 05/06/17 05:47; Admin Dose 400 MG; Start 04/30/17 at 22:00 Ergocalciferol (Drisdol Liquid (Ped)) 50,000 units Q7D GTB Last administered on 05/02/17 09:30; Admin Dose 50,000 UNITS; Start 05/02/17 at 09:30 Enoxaparin Sodium (Lovenox) 50 mg Q12 SC Last administered on 05/06/17 10:11; Admin Dose 50 MG; Start 05/03/17 at 09:30 Diphenoxylate HCl/ Atropine (Lomotil Liquid Cup) 5 ml Q6H PRN PO DIARRHEA; Start 05/03/17 at 18:00 Desmopressin Acetate (Ddavp) 0.05 mg BID GTB Last administered on 05/05/17 20: 30; Admin Dose 0.05 MG; Start 05/03/17 at 21:00 Collagenase 1 applic 1 applic DAILY TOP Last administered on 05/06/17 09:00; Admin Dose 1 APPLIC; Start 05/04/17 at 14:30 Potassium Chloride 20 meq/ Sodium Chloride 110 ml @ 55 mls/hr ONCE ONCE IVPB ; Start 05/06/17 at 12:30; Stop 05/06/17 at 14:29 Potassium Chloride/Sodium Chloride (NS-KCl 20 Meq) 1,000 ml @ 80 mls/hr [id number] IV ; Start 05/06/17 at 11:30 CHITO WALLS May 06, 2017 11:43
[2017-05-06] MEDS ORDERED: POTASSIUM CHLORIDE 20 MEQ in SOD CHLORIDE 0.9% 100 ML IVPB ONE (12:30)
[2017-05-06] MEDS: DESMOPRESSIN 0.1 MG TAB GTB SCH (12:49)
[2017-05-06] MEDS: NS + KCL 20 MEQ 1,000 ML IV SCH (12:50)
[2017-05-06] MEDS: ACYCLOVIR 800 MG TAB PEG SCH ×2 (16:06→20:41)
--- NOTE | 2017-05-06 17:12 | CONS ---
Date/Time of Note Date/Time of Note DATE: 05/06/17 TIME: 17:10 Assessment/Plan Assessment/Plan Additional Assessment/Plan 1. Non Oliguric Acute kidney injury due to septic shock -Improved 2. Hypernaremia- resolved 3. Septic shock on levophed - Resolved 4. Acute on chronic resp failure s/p Tracheostomy- on ventilator, pulmonary has been following 5. H/o Fungal meningitis, currently comatose 6. 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 Plan: IVF Stopped yesterday, will reassess for drop in Na with AM albs, if low then consider restarting IVF na dropped to 130- decrease DDAVP to 0.05 daily ID, pulmonary has been following will follow up Consultation Date/Type/Reason Admit Date/Time Apr 25, 2017 at 12:31 Initial Consult Date 04/25/17 Type of Consultation: NEPHROLOGY Referring Provider: HELEN CASTELLANO MD 24 HR Interval Summary Free Text/Dictation Cr normal< Na dropped to 129, no acute events otherwise Exam/Review of Systems Vital Signs Vitals Vital Signs Date Time Temp Pulse Resp B/P Pulse Ox O2 Delivery O2 Flow Rate FiO2 05/06/17 16:30 82 05/06/17 15:26 97.7 18 113/67 98 05/06/17 08:00 30 05/02/17 13:00 Mechanical Ventilator Intake and Output 05/05/17 05/05/17 05/06/17 15:00 23:00 07:00 Intake Total 1000 ml 1000 ml Output Total 1600 ml 1800 ml 1800 ml Balance -600 ml -1800 ml -800 ml Exam Constitutional: non-verbal Neck: other (Tracheostomy), supple Respiratory: diminished breath sounds Cardiovascular: nl pulses Gastrointestinal: non-tender, other (G-tube), soft Extremities: normal pulses Results Result Diagram: 05/06/17 0819 05/06/17 0819 Results 24 hrs Laboratory Tests Test 05/06/17 08:19 White Blood Count 7.6 # Red Blood Count 3.35 L Hemoglobin 9.5 L Hematocrit 29.3 L Mean Corpuscular Volume 87.5 Mean Corpuscular Hemoglobin 28.4 L Mean Corpuscular Hemoglobin Concent 32.4 Red Cell Distribution Width 14.5 Platelet Count 292 Mean Platelet Volume 11.4 H Neutrophils % 79.0 H Lymphocytes % 11.1 L Monocytes % 7.5 Eosinophils % 0.7 Basophils % 0.5 Nucleated Red Blood Cells % 0.0 Neutrophils # 6.0 Lymphocytes # 0.8 Monocytes # 0.6 Eosinophils # 0.1 Basophils # 0.0 Nucleated Red Blood Cells # 0.0 Sodium Level 130 L Potassium Level 3.2 L Chloride Level 92 L Carbon Dioxide Level 32 H Anion Gap 9 Blood Urea Nitrogen 9 Creatinine 0.43 L Glucose Level 113 Calcium Level 10.1 Medications Medications Current Medications Acetaminophen (Tylenol Liquid) 650 mg Q4 PRN GTB PAIN AND OR ELEVATED TEMP Last administered on 05/05/17 13:23; Admin Dose 650 MG; Start 04/25/17 at 23:00 Eye Lubricant (Akwa Oint) 1 applic QID BOTH EYES Last administered on 10:13; Admin Dose 1 APPLIC; Start 04/26/17 at 09:00 Bromocriptine Mesylate (Parlodel) 30 mg DAILY GTB Last administered on 10:12; Admin Dose 30 MG; Start 04/26/17 at 09:00 Chlorhexidine Gluconate (Peridex) 15 ml BID MM Last administered on 05/06/17 10:12; Admin Dose 15 ML; Start 04/26/17 at 09:00 Ferrous Sulfate (Feosol Liquid Cup) 300 mg BID GTB Last administered on 10:12; Admin Dose 300 MG; Start 04/26/17 at 09:00 Hydrocortisone (Cortef) 20 mg DAILY GTB Last administered on 05/06/17 10:13; Admin Dose 20 MG; Start 04/26/17 at 09:00 Ondansetron HCl (Zofran Tab) 4 mg Q8 PRN GTB NAUSEA AND/OR VOMITING; Start at 23:00 Lactobacillus Acidophilus (Florajen3 Capsule) 1 each DAILY PEG Last administered on 05/06/17 10:13; Admin Dose 1 EACH; Start 04/26/17 at 09:00 Ascorbic Acid (Vitamin C) 250 mg BID GTB Last administered on 05/06/17 10:12; Admin Dose 250 MG; Start 04/26/17 at 09:00 Famotidine (Pepcid) 20 mg BID GTB Last administered on 05/05/17 20:35; Admin Dose 20 MG; Start 04/26/17 at 09:00 Morphine Sulfate (morphine) 2 mg Q4H PRN IV PAIN Last administered on 14:46; Admin Dose 2 MG; Start 04/26/17 at 16:30 Posaconazole (Noxafil) 400 mg Q8 PO Last administered on 05/06/17 16:06; Admin Dose 400 MG; Start 04/30/17 at 22:00 Ergocalciferol (Drisdol Liquid (Ped)) 50,000 units Q7D GTB Last administered on 05/02/17 09:30; Admin Dose 50,000 UNITS; Start 05/02/17 at 09:30 Enoxaparin Sodium (Lovenox) 50 mg Q12 SC Last administered on 05/06/17 10:11; Admin Dose 50 MG; Start 05/03/17 at 09:30 Diphenoxylate HCl/ Atropine (Lomotil Liquid Cup) 5 ml Q6H PRN PO DIARRHEA; Start 05/03/17 at 18:00 Desmopressin Acetate (Ddavp) 0.05 mg BID GTB Last administered on 05/06/17 12: 49; Admin Dose 0.05 MG; Start 05/03/17 at 21:00 Collagenase 1 applic 1 applic DAILY TOP Last administered on 05/06/17 09:00; Admin Dose 1 APPLIC; Start 05/04/17 at 14:30 Potassium Chloride/Sodium Chloride (NS-KCl 20 Meq) 1,000 ml @ 80 mls/hr [id number] IV Last administered on 05/06/17 12:50; Admin Dose 80 MLS/HR; Start 05/06/17 at 11:30 Acyclovir (Zovirax) 800 mg TID PEG Last administered on 05/06/17 16:06; Admin Dose 800 MG; Start 05/06/17 at 13:00; Stop 05/13/17 at 12:59 FARHAT RUBIO MD May 06, 2017 17:12
[2017-05-06] MEDS: FAMOTIDINE 20 MG TAB GTB SCH (20:41)
[2017-05-07] VITALS (24 sets, daily range): BP systolic 100–131; BP diastolic 59–80; PULSE 70–91; RESP 16–22
[2017-05-07] MEDS: NS + KCL 20 MEQ 1,000 ML IV SCH ×2 (03:54→10:35)
[2017-05-07] MEDS: POSACONAZOLE PO SCH ×3 (06:02→22:40)
--- NOTE | 2017-05-07 08:09 | PN ---
Date/Time of Note Date/Time of Note DATE: 05/07/17 TIME: 08:08 Assessment/Plan VTE Prophylaxis VTE Prophylaxis Intervention: SCD's Lines/Catheters IV Catheter Type (from Nrs): PICC Line Central line still needed: No Urinary Cath still in place: Yes Reason Cath still needed: urinary retention Assessment/Plan Assessment/Plan Septic shock off IV pressor Disseminated coccidiomycosis Pneumonia UTI Vent dependent respiratory failure Encephalopathy DVT -Blood pressure trend overall stable. Patient with DVT on anticoagulation. Fluids and electrolyte management as per our nephrology colleagues. No new cardiac orders at the current time Subjective 24 Hr Interval Summary Free Text/Dictation The patient with no change Exam/Review of Systems Vital Signs Vitals Vital Signs Date Time Temp Pulse Resp B/P Pulse Ox O2 Delivery O2 Flow Rate FiO2 05/07/17 07:49 97.8 85 17 100/63 97 05/07/17 05:14 30 Intake and Output 05/06/17 05/06/17 05/07/17 15:00 23:00 07:00 Intake Total 1000 ml 2240 ml Output Total 1100 ml Balance 1000 ml 1140 ml Results Result Diagram: 05/06/17 0819 05/06/17 0819 Results 24 hrs Laboratory Tests Test 05/06/17 08:19 White Blood Count 7.6 # Red Blood Count 3.35 L Hemoglobin 9.5 L Hematocrit 29.3 L Mean Corpuscular Volume 87.5 Mean Corpuscular Hemoglobin 28.4 L Mean Corpuscular Hemoglobin Concent 32.4 Red Cell Distribution Width 14.5 Platelet Count 292 Mean Platelet Volume 11.4 H Neutrophils % 79.0 H Lymphocytes % 11.1 L Monocytes % 7.5 Eosinophils % 0.7 Basophils % 0.5 Nucleated Red Blood Cells % 0.0 Neutrophils # 6.0 Lymphocytes # 0.8 Monocytes # 0.6 Eosinophils # 0.1 Basophils # 0.0 Nucleated Red Blood Cells # 0.0 Sodium Level 130 L Potassium Level 3.2 L Chloride Level 92 L Carbon Dioxide Level 32 H Anion Gap 9 Blood Urea Nitrogen 9 Creatinine 0.43 L Glucose Level 113 Calcium Level 10.1 Medications Medications Current Medications Acetaminophen (Tylenol Liquid) 650 mg Q4 PRN GTB PAIN AND OR ELEVATED TEMP Last administered on 05/05/17t 13:23; Admin Dose 650 MG; Start 04/25/17 at 23:00 Eye Lubricant (Akwa Oint) 1 applic QID BOTH EYES Last administered on 20:42; Admin Dose 1 APPLIC; Start 04/26/17 at 09:00 Bromocriptine Mesylate (Parlodel) 30 mg DAILY GTB Last administered on 10:12; Admin Dose 30 MG; Start 04/26/17 at 09:00 Chlorhexidine Gluconate (Peridex) 15 ml BID MM Last administered on 05/06/17 20:41; Admin Dose 15 ML; Start 04/26/17 at 09:00 Ferrous Sulfate (Feosol Liquid Cup) 300 mg BID GTB Last administered on 20:41; Admin Dose 300 MG; Start 04/26/17 at 09:00 Hydrocortisone (Cortef) 20 mg DAILY GTB Last administered on 05/06/17 10:13; Admin Dose 20 MG; Start 04/26/17 at 09:00 Ondansetron HCl (Zofran Tab) 4 mg Q8 PRN GTB NAUSEA AND/OR VOMITING; Start at 23:00 Lactobacillus Acidophilus (Florajen3 Capsule) 1 each DAILY PEG Last administered on 05/06/17 10:13; Admin Dose 1 EACH; Start 04/26/17 at 09:00 Ascorbic Acid (Vitamin C) 250 mg BID GTB Last administered on 05/06/17 20:41; Admin Dose 250 MG; Start 04/26/17 at 09:00 Famotidine (Pepcid) 20 mg BID GTB Last administered on 05/06/17 20:41; Admin Dose 20 MG; Start 04/26/17 at 09:00 Morphine Sulfate (morphine) 2 mg Q4H PRN IV PAIN Last administered on 14:46; Admin Dose 2 MG; Start 04/26/17 at 16:30 Posaconazole (Noxafil) 400 mg Q8 PO Last administered on 05/07/17 06:02; Admin Dose 400 MG; Start 04/30/17 at 22:00 Ergocalciferol (Drisdol Liquid (Ped)) 50,000 units Q7D GTB Last administered on 05/02/17 09:30; Admin Dose 50,000 UNITS; Start 05/02/17 at 09:30 Enoxaparin Sodium (Lovenox) 50 mg Q12 SC Last administered on 05/06/17 20:47; Admin Dose 50 MG; Start 05/03/17 at 09:30 Diphenoxylate HCl/ Atropine (Lomotil Liquid Cup) 5 ml Q6H PRN PO DIARRHEA; Start 05/03/17 at 18:00 Collagenase 1 applic 1 applic DAILY TOP Last administered on 05/06/17 09:00; Admin Dose 1 APPLIC; Start 05/04/17 at 14:30 Potassium Chloride/Sodium Chloride (NS-KCl 20 Meq) 1,000 ml @ 80 mls/hr [id number] IV Last administered on 05/07/17 03:54; Admin Dose 80 MLS/HR; Start 05/06/17 at 11:30 Acyclovir (Zovirax) 800 mg TID PEG Last administered on 05/06/17 20:41; Admin Dose 800 MG; Start 05/06/17 at 13:00; Stop 05/13/17 at 12:59 Desmopressin Acetate (Ddavp) 0.05 mg DAILY GTB ; Start 05/07/17 at 09:00 ORI SESAY MD May 07, 2017 08:09
--- NOTE | 2017-05-07 09:08 | CONS ---
Date/Time of Note Date/Time of Note DATE: 05/07/17 TIME: 09:06 Assessment/Plan Assessment/Plan Chief Complaint/Hosp Course assessment/impression - septic shock due to pneumonia and UTI - UTI due to ESBL+E. coli. Took pip/tazo and then meropenem - b/l pneumonia due to klebsiella, EBL+E. coli. Took pip/tazo and then meropenem - herpes labialis - h/o disseminated coccidioides mycosis infection, meningitis. Cocci CF 1:16 on 04/26/2017 - s/p VPS placement - VDRF s/p tracheostomy - PEG dependet status - pancytopenia, due to septic shock on admission - thrombocytopenia due to sepsis, improving recommendations - continue posaconazole to 400 mg q8hrs and repeat the level today ( posaconazole trough level 0.32 on 04/27/2017, the dose was increased on 2016 according to the advise from JOE Galeano at neurosurgery department at [facility] informing us that Pt's posaconazole level had been low at [facility]) - will change acyclovir from pGT to IV because herpes labialis progressed despite >7 days of pGT acyclovir Problems: Consultation Date/Type/Reason Admit Date/Time Apr 25, 2017 at 12:31 Initial Consult Date 04/25/17 Type of Consultation: ID Referring Provider: HELEN CASTELLANO MD 24 HR Interval Summary Subjective hx not possible: pt non-verbal Exam/Review of Systems Vital Signs Vitals Vital Signs Date Time Temp Pulse Resp B/P Pulse Ox O2 Delivery O2 Flow Rate FiO2 05/07/17 08:00 30 05/07/17 07:49 97.8 85 17 100/63 97 Intake and Output 05/06/17 05/06/17 05/07/17 15:00 23:00 07:00 Intake Total 1000 ml 2240 ml Output Total 1100 ml Balance 1000 ml 1140 ml Exam Constitutional: non-verbal Psych: confusion Head: atraumatic, normocephalic Eyes: nl conjunctiva ENMT: nl external ears & nose, other (enlarging ulcer and eschar on lower lip) Neck: other (trach) Respiratory: wheezing Cardiovascular: nl pulses, regular rate and rhythm Gastrointestinal: other (GT), soft, No distended, No firm Genitourinary - Male: other (FC) Musculoskeletal: muscle tone (increased) Extremities: No edema Neurological: confused Skin: nl turgor Results Result Diagram: 05/06/1781805/06/17818 Medications Medications Current Medications Acetaminophen (Tylenol Liquid) 650 mg Q4 PRN GTB PAIN AND OR ELEVATED TEMP Last administered on 05/05/17 13:23; Admin Dose 650 MG; Start 04/25/17 at 23:00 Eye Lubricant (Akwa Oint) 1 applic QID BOTH EYES Last administered on 20:42; Admin Dose 1 APPLIC; Start 04/26/17 at 09:00 Bromocriptine Mesylate (Parlodel) 30 mg DAILY GTB Last administered on 10:12; Admin Dose 30 MG; Start 04/26/17 at 09:00 Chlorhexidine Gluconate (Peridex) 15 ml BID MM Last administered on 05/06/17 20:41; Admin Dose 15 ML; Start 04/26/17 at 09:00 Ferrous Sulfate (Feosol Liquid Cup) 300 mg BID GTB Last administered on 20:41; Admin Dose 300 MG; Start 04/26/17 at 09:00 Hydrocortisone (Cortef) 20 mg DAILY GTB Last administered on 05/06/17 10:13; Admin Dose 20 MG; Start 04/26/17 at 09:00 Ondansetron HCl (Zofran Tab) 4 mg Q8 PRN GTB NAUSEA AND/OR VOMITING; Start at 23:00 Lactobacillus Acidophilus (Florajen3 Capsule) 1 each DAILY PEG Last administered on 05/06/17 10:13; Admin Dose 1 EACH; Start 04/26/17 at 09:00 Ascorbic Acid (Vitamin C) 250 mg BID GTB Last administered on 05/06/17 20:41; Admin Dose 250 MG; Start 04/26/17 at 09:00 Famotidine (Pepcid) 20 mg BID GTB Last administered on 05/06/17 20:41; Admin Dose 20 MG; Start 04/26/17 at 09:00 Morphine Sulfate (morphine) 2 mg Q4H PRN IV PAIN Last administered on 14:46; Admin Dose 2 MG; Start 04/26/17 at 16:30 Posaconazole (Noxafil) 400 mg Q8 PO Last administered on 05/07/17 06:02; Admin Dose 400 MG; Start 04/30/17 at 22:00 Ergocalciferol (Drisdol Liquid (Ped)) 50,000 units Q7D GTB Last administered on 05/02/17 09:30; Admin Dose 50,000 UNITS; Start 05/02/17 at 09:30 Enoxaparin Sodium (Lovenox) 50 mg Q12 SC Last administered on 05/06/17 20:47; Admin Dose 50 MG; Start 05/03/17 at 09:30 Diphenoxylate HCl/ Atropine (Lomotil Liquid Cup) 5 ml Q6H PRN PO DIARRHEA; Start 05/03/17 at 18:00 Collagenase 1 applic 1 applic DAILY TOP Last administered on 05/06/17 09:00; Admin Dose 1 APPLIC; Start 05/04/17 at 14:30 Potassium Chloride/Sodium Chloride (NS-KCl 20 Meq) 1,000 ml @ 80 mls/hr [id number] IV Last administered on 05/07/17 03:54; Admin Dose 80 MLS/HR; Start 05/06/17 at 11:30 Acyclovir (Zovirax) 800 mg TID PEG Last administered on 05/06/17 20:41; Admin Dose 800 MG; Start 05/06/17 at 13:00; Stop 05/13/17 at 12:59 Desmopressin Acetate (Ddavp) 0.05 mg DAILY GTB ; Start 05/07/17 at 09:00 ELENI EVANS M.D. May 07, 2017 09:08
[2017-05-07] MEDS: CHLORHEXIDINE GLUCONATE 15 ML UD CUP MM SCH ×2 (10:30→20:27)
[2017-05-07] MEDS: DESMOPRESSIN 0.1 MG TAB GTB SCH (10:30)
[2017-05-07] MEDS: FERROUS SULFATE 60 MG/ML 5ML CUP GTB SCH ×2 (10:30→20:27)
[2017-05-07] MEDS: L ACIDOPHIL/B LACTIS/B LONGUM CAPSULE PEG SCH (10:31)
[2017-05-07] MEDS: ASCORBIC ACID 250 MG TAB GTB SCH ×2 (10:31→20:27)
[2017-05-07] MEDS: FAMOTIDINE 20 MG TAB GTB SCH ×2 (10:31→20:27)
[2017-05-07] MEDS: OCULAR LUBRICANT 3.5 GM OPH OINT BOTH EYES SCH ×4 (10:32→20:27)
[2017-05-07] MEDS: BROMOCRIPTINE 2.5 MG TAB GTB SCH (10:32)
[2017-05-07] MEDS: COLLAGENASE 30 GM TUBE TOP SCH (10:34)
[2017-05-07] MEDS: ENOXAPARIN 60 MG/0.6 ML SYG SC SCH ×2 (10:35→20:28)
[2017-05-07 12:34] LABS: BASOPHILS % 0.4 % (0.0-2.0); EOSINOPHILS # 0.1 10^3/ul (0.0-0.5); EOSINOPHILS % 1.3 % (0.0-7.0); HEMATOCRIT 27.4 % (42.0-52.0); HEMOGLOBIN 8.9 g/dl (14.0-18.0); LYMPHOCYTES # 0.9 10^3/ul (0.8-2.9); LYMPHOCYTES % 12.3 % (15.0-51.0); MEAN CORPUSCULAR HEMOGLOBIN 28.6 pg (29.0-33.0); MEAN CORPUSCULAR HGB CONC 32.5 g/dl (32.0-37.0); MEAN CORPUSCULAR VOLUME 88.1 fl (82.0-101.0); MEAN PLATELET VOLUME 11.3 fl (7.4-10.4); MONOCYTE # 0.6 10^3/ul (0.3-0.9); MONOCYTES % 7.5 % (0.0-11.0); NEUTROPHIL # 5.8 10^3/ul (1.6-7.5); NEUTROPHILS % 76.9 % (39.0-77.0); PLATELET COUNT 277 10^3/UL (140-415); RED BLOOD COUNT 3.11 10^6/ul (4.70-6.10); RED CELL DISTRIBUTION WIDTH 14.5 % (11.5-14.5); WHITE BLOOD COUNT 7.5 10^3/ul (4.8-10.8)
[2017-05-07 12:52] LABS: CALCIUM 9.7 mg/dl (8.4-10.2); CREATININE 0.4 mg/dl (0.61-1.24); POTASSIUM 3.6 mmol/L (3.5-5.1)
[2017-05-07] MEDS: HYDROCORTISONE 20 MG TAB GTB SCH (12:53)
[2017-05-07] MEDS: ACYCLOVIR 500 MG in SOD CHLORIDE 0.9% 100 ML IVPB SCH ×2 (13:26→22:40)
--- NOTE | 2017-05-07 16:07 | CONS ---
Date/Time of Note Date/Time of Note DATE: 05/07/17 TIME: 16:05 Assessment/Plan Assessment/Plan Additional Assessment/Plan 1. Non Oliguric Acute kidney injury due to septic shock -Improved 2. Hypernaremia- resolved 3. Septic shock on levophed - Resolved 4. Acute on chronic resp failure s/p Tracheostomy- on ventilator, pulmonary has been following 5. H/o Fungal meningitis, currently comatose 6. H/O Right sided CAUSTICISER shunt 7. H/o G tube placement 8. Nursing Homemedical resident 9. 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 Plan: na dropped to 130- yesterday decreased DDAVP to 0.05 daily , will follow up on Na level in AM labs to decide if pt needs IVF ID, pulmonary has been following will follow up Consultation Date/Type/Reason Admit Date/Time Apr 25, 2017 at 12:31 Initial Consult Date 04/25/17 Type of Consultation: NEPHROLOGY Referring Provider: HELEN CASTELLANO MD 24 HR Interval Summary Free Text/Dictation Na 130, Cr normal Exam/Review of Systems Vital Signs Vitals Vital Signs Date Time Temp Pulse Resp B/P Pulse Ox O2 Delivery O2 Flow Rate FiO2 05/07/17 15:56 97.9 76 21 131/80 98 05/07/17 15:10 30 Intake and Output 05/06/17 05/06/17 05/07/17 15:00 23:00 07:00 Intake Total 1000 ml 2240 ml Output Total 1100 ml Balance 1000 ml 1140 ml Exam Constitutional: non-verbal Neck: other (Tracheostomy), supple Respiratory: diminished breath sounds Cardiovascular: nl pulses Gastrointestinal: non-tender, other (G-tube), soft Extremities: normal pulses Results Result Diagram: 05/07/17 1209 05/07/17 1209 Results 24 hrs Laboratory Tests Test 05/07/17 12:09 White Blood Count 7.5 Red Blood Count 3.11 L Hemoglobin 8.9 L Hematocrit 27.4 L Mean Corpuscular Volume 88.1 Mean Corpuscular Hemoglobin 28.6 L Mean Corpuscular Hemoglobin Concent 32.5 Red Cell Distribution Width 14.5 Platelet Count 277 Mean Platelet Volume 11.3 H Neutrophils % 76.9 Lymphocytes % 12.3 L Monocytes % 7.5 Eosinophils % 1.3 Basophils % 0.4 Nucleated Red Blood Cells % 0.0 Neutrophils # 5.8 Lymphocytes # 0.9 Monocytes # 0.6 Eosinophils # 0.1 Basophils # 0.0 Nucleated Red Blood Cells # 0.0 Sodium Level 130 L Potassium Level 3.6 Chloride Level 95 L Carbon Dioxide Level 30 Anion Gap 9 Blood Urea Nitrogen 8 Creatinine 0.40 L Glucose Level 97 Calcium Level 9.7 Medications Medications Current Medications Acetaminophen (Tylenol Liquid) 650 mg Q4 PRN GTB PAIN AND OR ELEVATED TEMP Last administered on 05/05/17 13:23; Admin Dose 650 MG; Start 04/25/17 at 23:00 Eye Lubricant (Akwa Oint) 1 applic QID BOTH EYES Last administered on 12:53; Admin Dose 1 APPLIC; Start 04/26/17 at 09:00 Bromocriptine Mesylate (Parlodel) 30 mg DAILY GTB Last administered on 10:32; Admin Dose 30 MG; Start 04/26/17 at 09:00 Chlorhexidine Gluconate (Peridex) 15 ml BID MM Last administered on 05/07/17 10:30; Admin Dose 15 ML; Start 04/26/17 at 09:00 Ferrous Sulfate (Feosol Liquid Cup) 300 mg BID GTB Last administered on 10:30; Admin Dose 300 MG; Start 04/26/17 at 09:00 Hydrocortisone (Cortef) 20 mg DAILY GTB Last administered on 05/07/17 12:53; Admin Dose 20 MG; Start 04/26/17 at 09:00 Ondansetron HCl (Zofran Tab) 4 mg Q8 PRN GTB NAUSEA AND/OR VOMITING; Start at 23:00 Lactobacillus Acidophilus (Florajen3 Capsule) 1 each DAILY PEG Last administered on 05/07/17 10:31; Admin Dose 1 EACH; Start 04/26/17 at 09:00 Ascorbic Acid (Vitamin C) 250 mg BID GTB Last administered on 05/07/17 10:31; Admin Dose 250 MG; Start 04/26/17 at 09:00 Famotidine (Pepcid) 20 mg BID GTB Last administered on 05/07/17 10:31; Admin Dose 20 MG; Start 04/26/17 at 09:00 Morphine Sulfate (morphine) 2 mg Q4H PRN IV PAIN Last administered on 14:46; Admin Dose 2 MG; Start 04/26/17 at 16:30 Posaconazole (Noxafil) 400 mg Q8 PO Last administered on 05/07/17 14:51; Admin Dose 400 MG; Start 04/30/17 at 22:00 Ergocalciferol (Drisdol Liquid (Ped)) 50,000 units Q7D GTB Last administered on 05/02/17 09:30; Admin Dose 50,000 UNITS; Start 05/02/17 at 09:30 Enoxaparin Sodium (Lovenox) 50 mg Q12 SC Last administered on 05/07/17 10:35; Admin Dose 50 MG; Start 05/03/17 at 09:30 Diphenoxylate HCl/ Atropine (Lomotil Liquid Cup) 5 ml Q6H PRN PO DIARRHEA; Start 05/03/17 at 18:00 Collagenase 1 applic 1 applic DAILY TOP Last administered on 05/07/17 10:34; Admin Dose 1 APPLIC; Start 05/04/17 at 14:30 Potassium Chloride/Sodium Chloride (NS-KCl 20 Meq) 1,000 ml @ 80 mls/hr [id number] IV Last administered on 05/07/17 03:54; Admin Dose 80 MLS/HR; Start 05/06/17 at 11:30 Desmopressin Acetate 0.05 mg 0.05 mg DAILY GTB Last administered on 05/07/17 10:30; Admin Dose 0.05 MG; Start 05/07/17 at 09:00 Acyclovir/Sodium Chloride (Zovirax/NS) 100 ml @ 100 mls/hr Q8 IVPB Last administered on 05/07/17 13:26; Admin Dose 100 MLS/HR; Start 05/07/17 at 14:00 FARHAT RUBIO MD May 07, 2017 16:07
--- NOTE | 2017-05-07 17:59 | PN ---
Date/Time of Note Date/Time of Note DATE: 05/07/17 TIME: 17:55 Assessment/Plan VTE Prophylaxis VTE Prophylaxis Intervention: SCD's Lines/Catheters IV Catheter Type (from Nrs): PICC Line Central line still needed: Yes Urinary Cath still in place: Yes Reason Cath still needed: urinary retention Assessment/Plan Chief Complaint/Hosp Course No fever, continues to have diarrhea, repeat stool for C. difficile. Assessment/Plan - Septic shock due to bilateral pneumonia and UTI, resolving. Continue antibiotics per ID. Dr Brown is following in infection disease consultation. 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 Continue Lovenox. - Acute kidney injury, resolving. - Hypernatremia, resolved. Dr Sorensen is following in nephrology consultation. - Hypokalemia, continue k protocol. - Pancytopenia most likely secondary to sepsis - Dysphagia with PEG. Continue tube G-tube feeding - VDRF with tracheostomy - Hydrocephalus, status post PHYSICIAN AIDE shunt. - Polyuria, improving. - Diarrhea Further recommendations based on clinical course. Plan of care discussed with Dr. Dozier Problems: Exam/Review of Systems Vital Signs Vitals Vital Signs Date Time Temp Pulse Resp B/P Pulse Ox O2 Delivery O2 Flow Rate FiO2 05/07/17 17:49 70 05/07/17 17:05 16 96 30 05/07/17 15:56 97.9 131/80 Intake and Output 05/06/17 05/06/17 05/07/17 15:00 23:00 07:00 Intake Total 1000 ml 2240 ml Output Total 1100 ml Balance 1000 ml 1140 ml Exam Constitutional: non-verbal Neck: other (Tracheostomy), supple Respiratory: diminished breath sounds Cardiovascular: nl pulses Gastrointestinal: non-tender, other (G-tube), soft Extremities: normal pulses Neurological: lethargic Results Result Diagram: 05/07/17 1209 05/07/17 1209 Results 24 hrs Laboratory Tests Test 05/07/17 12:09 White Blood Count 7.5 Red Blood Count 3.11 L Hemoglobin 8.9 L Hematocrit 27.4 L Mean Corpuscular Volume 88.1 Mean Corpuscular Hemoglobin 28.6 L Mean Corpuscular Hemoglobin Concent 32.5 Red Cell Distribution Width 14.5 Platelet Count 277 Mean Platelet Volume 11.3 H Neutrophils % 76.9 Lymphocytes % 12.3 L Monocytes % 7.5 Eosinophils % 1.3 Basophils % 0.4 Nucleated Red Blood Cells % 0.0 Neutrophils # 5.8 Lymphocytes # 0.9 Monocytes # 0.6 Eosinophils # 0.1 Basophils # 0.0 Nucleated Red Blood Cells # 0.0 Sodium Level 130 L Potassium Level 3.6 Chloride Level 95 L Carbon Dioxide Level 30 Anion Gap 9 Blood Urea Nitrogen 8 Creatinine 0.40 L Glucose Level 97 Calcium Level 9.7 Medications Medications Current Medications Acetaminophen (Tylenol Liquid) 650 mg Q4 PRN GTB PAIN AND OR ELEVATED TEMP Last administered on 05/05/17 13:23; Admin Dose 650 MG; Start 04/25/17 at 23:00 Eye Lubricant (Akwa Oint) 1 applic QID BOTH EYES Last administered on 12:53; Admin Dose 1 APPLIC; Start 04/26/17 at 09:00 Bromocriptine Mesylate (Parlodel) 30 mg DAILY GTB Last administered on 10:32; Admin Dose 30 MG; Start 04/26/17 at 09:00 Chlorhexidine Gluconate (Peridex) 15 ml BID MM Last administered on 05/07/17 10:30; Admin Dose 15 ML; Start 04/26/17 at 09:00 Ferrous Sulfate (Feosol Liquid Cup) 300 mg BID GTB Last administered on 10:30; Admin Dose 300 MG; Start 04/26/17 at 09:00 Hydrocortisone (Cortef) 20 mg DAILY GTB Last administered on 05/07/17 12:53; Admin Dose 20 MG; Start 04/26/17 at 09:00 Ondansetron HCl (Zofran Tab) 4 mg Q8 PRN GTB NAUSEA AND/OR VOMITING; Start at 23:00 Lactobacillus Acidophilus (Florajen3 Capsule) 1 each DAILY PEG Last administered on 05/07/17 10:31; Admin Dose 1 EACH; Start 04/26/17 at 09:00 Ascorbic Acid (Vitamin C) 250 mg BID GTB Last administered on 05/07/17 10:31; Admin Dose 250 MG; Start 04/26/17 at 09:00 Famotidine (Pepcid) 20 mg BID GTB Last administered on 05/07/17 10:31; Admin Dose 20 MG; Start 04/26/17 at 09:00 Morphine Sulfate (morphine) 2 mg Q4H PRN IV PAIN Last administered on 14:46; Admin Dose 2 MG; Start 04/26/17 at 16:30 Posaconazole (Noxafil) 400 mg Q8 PO Last administered on 05/07/17 14:51; Admin Dose 400 MG; Start 04/30/17 at 22:00 Ergocalciferol (Drisdol Liquid (Ped)) 50,000 units Q7D GTB Last administered on 05/02/17 09:30; Admin Dose 50,000 UNITS; Start 05/02/17 at 09:30 Enoxaparin Sodium (Lovenox) 50 mg Q12 SC Last administered on 05/07/17 10:35; Admin Dose 50 MG; Start 05/03/17 at 09:30 Diphenoxylate HCl/ Atropine (Lomotil Liquid Cup) 5 ml Q6H PRN PO DIARRHEA; Start 05/03/17 at 18:00 Collagenase 1 applic 1 applic DAILY TOP Last administered on 05/07/17 10:34; Admin Dose 1 APPLIC; Start 05/04/17 at 14:30 Potassium Chloride/Sodium Chloride (NS-KCl 20 Meq) 1,000 ml @ 80 mls/hr [id number] IV Last administered on 05/07/17 03:54; Admin Dose 80 MLS/HR; Start 05/06/17 at 11:30 Desmopressin Acetate 0.05 mg 0.05 mg DAILY GTB Last administered on 05/07/17 10:30; Admin Dose 0.05 MG; Start 05/07/17 at 09:00 Acyclovir/Sodium Chloride (Zovirax/NS) 100 ml @ 100 mls/hr Q8 IVPB Last administered on 05/07/17 13:26; Admin Dose 100 MLS/HR; Start 05/07/17 at 14:00 MANDIE DAVE May 07, 2017 17:59
--- NOTE | 2017-05-07 18:21 | CONS ---
Date/Time of Note Date/Time of Note DATE: 05/07/17 TIME: 18:16 Consult Date/Type/Reason Admit Date/Time Apr 25, 2017 at 12:31 Initial Consult Date 04/25/17 Type of Consultation: Pulmonary Ordering Provider: HELEN CASTELLANO MD Subjective Patient comfortable this morning. Objective Vital Signs Date Time Temp Pulse Resp B/P Pulse Ox O2 Delivery O2 Flow Rate FiO2 05/07/17 17:49 70 05/07/17 17:05 16 96 30 05/07/17 15:56 97.9 131/80 Intake and Output 05/06/17 05/06/17 05/07/17 15:00 23:00 07:00 Intake Total 1000 ml 2240 ml Output Total 1100 ml Balance 1000 ml 1140 ml Exam PHYSICAL EXAMINATION GENERAL: Chronically ill-appearing gentleman on mechanical ventilation comfortable VITAL SIGNS: see below. HEENT: Pupils equal, round, and reactive to light. Tracheostomy site clean and intact. CARDIAC: S1, S2, 1/6 systolic ejection murmur CHEST: Diminished air entry bilaterally. ABDOMEN: Mildly distended. Bowel sounds present no guarding or rebound EXTREMITIES: No cyanosis, clubbing edema +1 NEUROLOGIC: Generalized weakness Results/Medications Result Diagram: 05/07/17 1209 05/07/17 1209 Results 24 hrs Laboratory Tests Test 05/07/17 12:09 White Blood Count 7.5 Red Blood Count 3.11 L Hemoglobin 8.9 L Hematocrit 27.4 L Mean Corpuscular Volume 88.1 Mean Corpuscular Hemoglobin 28.6 L Mean Corpuscular Hemoglobin Concent 32.5 Red Cell Distribution Width 14.5 Platelet Count 277 Mean Platelet Volume 11.3 H Neutrophils % 76.9 Lymphocytes % 12.3 L Monocytes % 7.5 Eosinophils % 1.3 Basophils % 0.4 Nucleated Red Blood Cells % 0.0 Neutrophils # 5.8 Lymphocytes # 0.9 Monocytes # 0.6 Eosinophils # 0.1 Basophils # 0.0 Nucleated Red Blood Cells # 0.0 Sodium Level 130 L Potassium Level 3.6 Chloride Level 95 L Carbon Dioxide Level 30 Anion Gap 9 Blood Urea Nitrogen 8 Creatinine 0.40 L Glucose Level 97 Calcium Level 9.7 Medications Current Medications Acetaminophen (Tylenol Liquid) 650 mg Q4 PRN GTB PAIN AND OR ELEVATED TEMP Last administered on 05/05/17t 13:23; Admin Dose 650 MG; Start 04/25/17 at 23:00 Eye Lubricant (Akwa Oint) 1 applic QID BOTH EYES Last administered on 12:53; Admin Dose 1 APPLIC; Start 04/26/17 at 09:00 Bromocriptine Mesylate (Parlodel) 30 mg DAILY GTB Last administered on 10:32; Admin Dose 30 MG; Start 04/26/17 at 09:00 Chlorhexidine Gluconate (Peridex) 15 ml BID MM Last administered on 05/07/17 10:30; Admin Dose 15 ML; Start 04/26/17 at 09:00 Ferrous Sulfate (Feosol Liquid Cup) 300 mg BID GTB Last administered on 10:30; Admin Dose 300 MG; Start 04/26/17 at 09:00 Hydrocortisone (Cortef) 20 mg DAILY GTB Last administered on 05/07/17 12:53; Admin Dose 20 MG; Start 04/26/17 at 09:00 Ondansetron HCl (Zofran Tab) 4 mg Q8 PRN GTB NAUSEA AND/OR VOMITING; Start at 23:00 Lactobacillus Acidophilus (Florajen3 Capsule) 1 each DAILY PEG Last administered on 05/07/17 10:31; Admin Dose 1 EACH; Start 04/26/17 at 09:00 Ascorbic Acid (Vitamin C) 250 mg BID GTB Last administered on 05/07/17 10:31; Admin Dose 250 MG; Start 04/26/17 at 09:00 Famotidine (Pepcid) 20 mg BID GTB Last administered on 05/07/17 10:31; Admin Dose 20 MG; Start 04/26/17 at 09:00 Morphine Sulfate (morphine) 2 mg Q4H PRN IV PAIN Last administered on 14:46; Admin Dose 2 MG; Start 04/26/17 at 16:30 Posaconazole (Noxafil) 400 mg Q8 PO Last administered on 05/07/17 14:51; Admin Dose 400 MG; Start 04/30/17 at 22:00 Ergocalciferol (Drisdol Liquid (Ped)) 50,000 units Q7D GTB Last administered on 05/02/17 09:30; Admin Dose 50,000 UNITS; Start 05/02/17 at 09:30 Enoxaparin Sodium (Lovenox) 50 mg Q12 SC Last administered on 05/07/17 10:35; Admin Dose 50 MG; Start 05/03/17 at 09:30 Diphenoxylate HCl/ Atropine (Lomotil Liquid Cup) 5 ml Q6H PRN PO DIARRHEA; Start 05/03/17 at 18:00 Collagenase 1 applic 1 applic DAILY TOP Last administered on 05/07/17 10:34; Admin Dose 1 APPLIC; Start 05/04/17 at 14:30 Potassium Chloride/Sodium Chloride (NS-KCl 20 Meq) 1,000 ml @ 80 mls/hr [id number] IV Last administered on 05/07/17 03:54; Admin Dose 80 MLS/HR; Start 05/06/17 at 11:30 Desmopressin Acetate 0.05 mg 0.05 mg DAILY GTB Last administered on 05/07/17 10:30; Admin Dose 0.05 MG; Start 05/07/17 at 09:00 Acyclovir/Sodium Chloride (Zovirax/NS) 100 ml @ 100 mls/hr Q8 IVPB Last administered on 05/07/17 13:26; Admin Dose 100 MLS/HR; Start 05/07/17 at 14:00 Assessment/Plan Chief Complaint/Hosp Course Assessment and recommendations; 1. Patient admitted with E. coli UTI with significant clinical improvement, off treatment now. 2. History of disseminated coccidiomycosis pneumonia. 3. Severe anoxic brain injury, patient remains in persistent vegetative state. 4. Chronic respiratory failure. continue supportive care. Discharge planning Problems: FRANCESCA HANSEN MD, [facility] May 07, 2017 18:21
[2017-05-08] VITALS (24 sets, daily range): BP systolic 111–130; BP diastolic 65–86; PULSE 86–110; RESP 16–50
[2017-05-08] MEDS: NS + KCL 20 MEQ 1,000 ML IV SCH ×2 (00:12→13:49)
[2017-05-08] MEDS: POSACONAZOLE PO SCH ×3 (05:22→22:00)
[2017-05-08] MEDS: ACYCLOVIR 500 MG in SOD CHLORIDE 0.9% 100 ML IVPB SCH ×3 (05:22→21:56)
[2017-05-08 07:05] LABS: BASOPHIL # 0.1 10^3/ul (0.0-0.1); BASOPHILS % 0.9 % (0.0-2.0); EOSINOPHILS # 0.1 10^3/ul (0.0-0.5); EOSINOPHILS % 1.3 % (0.0-7.0); HEMATOCRIT 27.5 % (42.0-52.0); HEMOGLOBIN 8.9 g/dl (14.0-18.0); LYMPHOCYTES # 0.8 10^3/ul (0.8-2.9); LYMPHOCYTES % 14.1 % (15.0-51.0); MEAN CORPUSCULAR HEMOGLOBIN 28.7 pg (29.0-33.0); MEAN CORPUSCULAR HGB CONC 32.4 g/dl (32.0-37.0); MEAN CORPUSCULAR VOLUME 88.7 fl (82.0-101.0); MEAN PLATELET VOLUME 11.2 fl (7.4-10.4); MONOCYTE # 0.5 10^3/ul (0.3-0.9); MONOCYTES % 8.3 % (0.0-11.0); NEUTROPHIL # 4.1 10^3/ul (1.6-7.5); NEUTROPHILS % 74.1 % (39.0-77.0); PLATELET COUNT 305 10^3/UL (140-415); RED CELL DISTRIBUTION WIDTH 14.6 % (11.5-14.5); WHITE BLOOD COUNT 5.5 10^3/ul (4.8-10.8)
[2017-05-08 07:13] LABS: CALCIUM 9.7 mg/dl (8.4-10.2); CREATININE 0.41 mg/dl (0.61-1.24); POTASSIUM 3.2 mmol/L (3.5-5.1)
[2017-05-08] MEDS: FAMOTIDINE 20 MG TAB GTB SCH ×2 (09:52→21:57)
[2017-05-08] MEDS: DESMOPRESSIN 0.1 MG TAB GTB SCH (09:52)
[2017-05-08] MEDS: OCULAR LUBRICANT 3.5 GM OPH OINT BOTH EYES SCH ×4 (09:52→21:57)
[2017-05-08] MEDS: HYDROCORTISONE 20 MG TAB GTB SCH (09:52)
[2017-05-08] MEDS: BROMOCRIPTINE 2.5 MG TAB GTB SCH (09:52)
[2017-05-08] MEDS: ASCORBIC ACID 250 MG TAB GTB SCH ×2 (09:52→21:57)
[2017-05-08] MEDS: FERROUS SULFATE 60 MG/ML 5ML CUP GTB SCH ×2 (09:52→21:55)
[2017-05-08] MEDS: L ACIDOPHIL/B LACTIS/B LONGUM CAPSULE PEG SCH (09:53)
[2017-05-08] MEDS: COLLAGENASE 30 GM TUBE TOP SCH (09:53)
[2017-05-08] MEDS: CHLORHEXIDINE GLUCONATE 15 ML UD CUP MM SCH ×2 (09:53→21:56)
[2017-05-08] MEDS: ENOXAPARIN 60 MG/0.6 ML SYG SC SCH ×2 (10:08→21:58)
--- NOTE | 2017-05-08 14:04 | CONS ---
Date/Time of Note Date/Time of Note DATE: 05/08/17 TIME: 14:01 Assessment/Plan Assessment/Plan Chief Complaint/Hosp Course assessment/impression - septic shock due to pneumonia and UTI - UTI due to ESBL+E. coli. Took pip/tazo and then meropenem - b/l pneumonia due to klebsiella, EBL+E. coli. Took pip/tazo and then meropenem - herpes labialis - C diff colitis - h/o disseminated coccidioides mycosis infection, meningitis. Cocci CF 1:16 on 04/26/2017 - s/p VPS placement - VDRF s/p tracheostomy - PEG dependet status - pancytopenia, due to septic shock on admission - thrombocytopenia due to sepsis, improving recommendations - posaconazole trough level was sent on 05/07/2017 and the result is pending - continue posaconazole to 400 mg q8hrs (posaconazole trough level 0.32 on 2016, the dose was increased on 04/29/2017 according to the advise from JOE Galeano at neurosurgery department at [facility] informing us that Pt's posaconazole level had been low at [facility]) - start pGT vancomycin (05/07/2017) - continue IV acyclovir (05/07/2017-), it was changed from pGT to IV because herpes labialis progressed despite >7 days of pGT acyclovir - enteric contact precautions - management d/w Pt's mother and RN Problems: Consultation Date/Type/Reason Admit Date/Time Apr 25, 2017 at 12:31 Initial Consult Date 04/25/17 Type of Consultation: ID Referring Provider: HELEN CASTELLANO MD 24 HR Interval Summary Free Text/Dictation C diff positive from 05/07/2017 Subjective hx not possible: pt non-verbal Exam/Review of Systems Vital Signs Vitals Vital Signs Date Time Temp Pulse Resp B/P Pulse Ox O2 Delivery O2 Flow Rate FiO2 05/08/17 12:00 97 05/08/17 11:38 98.6 18 117/74 99 05/08/17 11:00 30 Intake and Output 05/07/17 05/07/17 05/08/17 15:00 23:00 07:00 Intake Total 2360 ml Output Total 2000 ml Balance 360 ml Exam Constitutional: frail, non-verbal Psych: confusion Head: atraumatic, normocephalic Eyes: nl conjunctiva, nl lids ENMT: nl external ears & nose, nl nasal mucosa & septum, other (eschar and ulcer of the lower lip) Respiratory: crackles/rales Cardiovascular: nl pulses, regular rate and rhythm Gastrointestinal: non-tender, other (GT), soft Genitourinary - Male: other (FC) Musculoskeletal: nl extremities to inspection Extremities: No edema Neurological: confused, lethargic Skin: nl turgor Results Result Diagram: 05/08/1758 05/08/1758 Results 24 hrs Laboratory Tests Test 05/08/17 05:58 White Blood Count 5.5 # Red Blood Count 3.10 L Hemoglobin 8.9 L Hematocrit 27.5 L Mean Corpuscular Volume 88.7 Mean Corpuscular Hemoglobin 28.7 L Mean Corpuscular Hemoglobin Concent 32.4 Red Cell Distribution Width 14.6 H Platelet Count 305 Mean Platelet Volume 11.2 H Neutrophils % 74.1 Lymphocytes % 14.1 L Monocytes % 8.3 Eosinophils % 1.3 Basophils % 0.9 Nucleated Red Blood Cells % 0.0 Neutrophils # 4.1 Lymphocytes # 0.8 Monocytes # 0.5 Eosinophils # 0.1 Basophils # 0.1 Nucleated Red Blood Cells # 0.0 Sodium Level 139 Potassium Level 3.2 L Chloride Level 103 Carbon Dioxide Level 30 Anion Gap 9 Blood Urea Nitrogen 7 Creatinine 0.41 L Glucose Level 104 Calcium Level 9.7 Medications Medications Current Medications Acetaminophen (Tylenol Liquid) 650 mg Q4 PRN GTB PAIN AND OR ELEVATED TEMP Last administered on 05/05/17 13:23; Admin Dose 650 MG; Start 04/25/17 at 23:00 Eye Lubricant (Akwa Oint) 1 applic QID BOTH EYES Last administered on 13:49; Admin Dose 1 APPLIC; Start 04/26/17 at 09:00 Bromocriptine Mesylate (Parlodel) 30 mg DAILY GTB Last administered on 09:52; Admin Dose 30 MG; Start 04/26/17 at 09:00 Chlorhexidine Gluconate (Peridex) 15 ml BID MM Last administered on 05/08/17 09:53; Admin Dose 15 ML; Start 04/26/17 at 09:00 Ferrous Sulfate (Feosol Liquid Cup) 300 mg BID GTB Last administered on 09:52; Admin Dose 300 MG; Start 04/26/17 at 09:00 Hydrocortisone (Cortef) 20 mg DAILY GTB Last administered on 05/08/17 09:52; Admin Dose 20 MG; Start 04/26/17 at 09:00 Ondansetron HCl (Zofran Tab) 4 mg Q8 PRN GTB NAUSEA AND/OR VOMITING; Start at 23:00 Lactobacillus Acidophilus (Florajen3 Capsule) 1 each DAILY PEG Last administered on 05/08/17 09:53; Admin Dose 1 EACH; Start 04/26/17 at 09:00 Ascorbic Acid (Vitamin C) 250 mg BID GTB Last administered on 05/08/17 09:52; Admin Dose 250 MG; Start 04/26/17 at 09:00 Famotidine (Pepcid) 20 mg BID GTB Last administered on 05/08/17 09:52; Admin Dose 20 MG; Start 04/26/17 at 09:00 Morphine Sulfate (morphine) 2 mg Q4H PRN IV PAIN Last administered on 14:46; Admin Dose 2 MG; Start 04/26/17 at 16:30 Posaconazole (Noxafil) 400 mg Q8 PO Last administered on 05/08/17 13:49; Admin Dose 400 MG; Start 04/30/17 at 22:00 Ergocalciferol (Drisdol Liquid (Ped)) 50,000 units Q7D GTB Last administered on 05/02/17 09:30; Admin Dose 50,000 UNITS; Start 05/02/17 at 09:30 Enoxaparin Sodium (Lovenox) 50 mg Q12 SC Last administered on 05/08/17 10:08; Admin Dose 50 MG; Start 05/03/17 at 09:30 Diphenoxylate HCl/ Atropine (Lomotil Liquid Cup) 5 ml Q6H PRN PO DIARRHEA; Start 05/03/17 at 18:00 Collagenase 1 applic 1 applic DAILY TOP Last administered on 05/08/17 09:53; Admin Dose 1 APPLIC; Start 05/04/17 at 14:30 Potassium Chloride/Sodium Chloride (NS-KCl 20 Meq) 1,000 ml @ 80 mls/hr [id number] IV Last administered on 05/08/17 13:49; Admin Dose 80 MLS/HR; Start 05/06/17 at 11:30 Desmopressin Acetate 0.05 mg 0.05 mg DAILY GTB Last administered on 05/08/17 09:52; Admin Dose 0.05 MG; Start 05/07/17 at 09:00 Acyclovir/Sodium Chloride (Zovirax/NS) 100 ml @ 100 mls/hr Q8 IVPB Last administered on 05/08/17 13:49; Admin Dose 100 MLS/HR; Start 05/07/17 at 14:00 Vancomycin HCl (Vancomycin Oral Syringe) 125 mg Q6 GTB ; Start 05/08/17 at 15:00 ELENI EVANS M.D. May 08, 2017 14:04
[2017-05-08] MEDS: VANCOMYCIN HCL 250 MG/5ML POSYG GTB SCH (14:54)
--- NOTE | 2017-05-08 14:58 | CONS ---
Date/Time of Note Date/Time of Note DATE: 05/08/17 TIME: 14:56 Assessment/Plan Assessment/Plan Additional Assessment/Plan 1. Non Oliguric Acute kidney injury due to septic shock -Improved 2. Hypernaremia- resolved 3. Septic shock on levophed - Resolved 4. Acute on chronic resp failure s/p Tracheostomy- on ventilator, pulmonary has been following 5. H/o Fungal meningitis, currently comatose 6. 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 Plan: Na improved to 139- continue DDAVP to 0.05 daily , JKCl 20mEQ IV x 1 extra dose in addition to IVF KCL ID, pulmonary has been following will follow up Consultation Date/Type/Reason Admit Date/Time Apr 25, 2017 at 12:31 Initial Consult Date 04/25/17 Type of Consultation: NEPHROLOGY Referring Provider: HELEN CASTELLANO MD 24 HR Interval Summary Free Text/Dictation Na improved to 139, K low, BP stable Exam/Review of Systems Vital Signs Vitals Vital Signs Date Time Temp Pulse Resp B/P Pulse Ox O2 Delivery O2 Flow Rate FiO2 05/08/17 14:18 99.2 05/08/17 13:40 93 25 97 30 05/08/17 11:38 117/74 Intake and Output 05/07/17 05/07/17 05/08/17 15:00 23:00 07:00 Intake Total 2360 ml Output Total 2000 ml Balance 360 ml Exam Constitutional: non-verbal Neck: other (Tracheostomy), supple Respiratory: diminished breath sounds Cardiovascular: nl pulses Gastrointestinal: non-tender, other (G-tube), soft Extremities: normal pulses Results Result Diagram: 05/08/17 0558 05/08/17 0558 Results 24 hrs Laboratory Tests Test 05/08/17 05:58 White Blood Count 5.5 # Red Blood Count 3.10 L Hemoglobin 8.9 L Hematocrit 27.5 L Mean Corpuscular Volume 88.7 Mean Corpuscular Hemoglobin 28.7 L Mean Corpuscular Hemoglobin Concent 32.4 Red Cell Distribution Width 14.6 H Platelet Count 305 Mean Platelet Volume 11.2 H Neutrophils % 74.1 Lymphocytes % 14.1 L Monocytes % 8.3 Eosinophils % 1.3 Basophils % 0.9 Nucleated Red Blood Cells % 0.0 Neutrophils # 4.1 Lymphocytes # 0.8 Monocytes # 0.5 Eosinophils # 0.1 Basophils # 0.1 Nucleated Red Blood Cells # 0.0 Sodium Level 139 Potassium Level 3.2 L Chloride Level 103 Carbon Dioxide Level 30 Anion Gap 9 Blood Urea Nitrogen 7 Creatinine 0.41 L Glucose Level 104 Calcium Level 9.7 Medications Medications Current Medications Acetaminophen (Tylenol Liquid) 650 mg Q4 PRN GTB PAIN AND OR ELEVATED TEMP Last administered on 05/05/17 13:23; Admin Dose 650 MG; Start 04/25/17 at 23:00 Eye Lubricant (Akwa Oint) 1 applic QID BOTH EYES Last administered on 13:49; Admin Dose 1 APPLIC; Start 04/26/17 at 09:00 Bromocriptine Mesylate (Parlodel) 30 mg DAILY GTB Last administered on 09:52; Admin Dose 30 MG; Start 04/26/17 at 09:00 Chlorhexidine Gluconate (Peridex) 15 ml BID MM Last administered on 05/08/17 09:53; Admin Dose 15 ML; Start 04/26/17 at 09:00 Ferrous Sulfate (Feosol Liquid Cup) 300 mg BID GTB Last administered on 09:52; Admin Dose 300 MG; Start 04/26/17 at 09:00 Hydrocortisone (Cortef) 20 mg DAILY GTB Last administered on 05/08/17 09:52; Admin Dose 20 MG; Start 04/26/17 at 09:00 Ondansetron HCl (Zofran Tab) 4 mg Q8 PRN GTB NAUSEA AND/OR VOMITING; Start at 23:00 Lactobacillus Acidophilus (Florajen3 Capsule) 1 each DAILY PEG Last administered on 05/08/17 09:53; Admin Dose 1 EACH; Start 04/26/17 at 09:00 Ascorbic Acid (Vitamin C) 250 mg BID GTB Last administered on 05/08/17 09:52; Admin Dose 250 MG; Start 04/26/17 at 09:00 Famotidine (Pepcid) 20 mg BID GTB Last administered on 05/08/17 09:52; Admin Dose 20 MG; Start 04/26/17 at 09:00 Morphine Sulfate (morphine) 2 mg Q4H PRN IV PAIN Last administered on 14:46; Admin Dose 2 MG; Start 04/26/17 at 16:30 Posaconazole (Noxafil) 400 mg Q8 PO Last administered on 05/08/17 13:49; Admin Dose 400 MG; Start 04/30/17 at 22:00 Ergocalciferol (Drisdol Liquid (Ped)) 50,000 units Q7D GTB Last administered on 05/02/17 09:30; Admin Dose 50,000 UNITS; Start 05/02/17 at 09:30 Enoxaparin Sodium (Lovenox) 50 mg Q12 SC Last administered on 05/08/17 10:08; Admin Dose 50 MG; Start 05/03/17 at 09:30 Diphenoxylate HCl/ Atropine (Lomotil Liquid Cup) 5 ml Q6H PRN PO DIARRHEA; Start 05/03/17 at 18:00 Collagenase 1 applic 1 applic DAILY TOP Last administered on 05/08/17 09:53; Admin Dose 1 APPLIC; Start 05/04/17 at 14:30 Potassium Chloride/Sodium Chloride (NS-KCl 20 Meq) 1,000 ml @ 80 mls/hr [id number] IV Last administered on 05/08/17 13:49; Admin Dose 80 MLS/HR; Start 05/06/17 at 11:30 Desmopressin Acetate 0.05 mg 0.05 mg DAILY GTB Last administered on 05/08/17 09:52; Admin Dose 0.05 MG; Start 05/07/17 at 09:00 Acyclovir/Sodium Chloride (Zovirax/NS) 100 ml @ 100 mls/hr Q8 IVPB Last administered on 05/08/17 13:49; Admin Dose 100 MLS/HR; Start 05/07/17 at 14:00 Vancomycin HCl (Vancomycin Oral Syringe) 125 mg Q6 GTB Last administered on 14:54; Admin Dose 125 MG; Start 05/08/17 at 15:00 FARHAT RUBIO MD May 08, 2017 14:58
--- NOTE | 2017-05-08 16:17 | PN ---
Date/Time of Note Date/Time of Note DATE: 05/08/17 TIME: 16:16 Assessment/Plan VTE Prophylaxis VTE Prophylaxis Intervention: SCD's Lines/Catheters IV Catheter Type (from [facility] PICC Line Urinary Cath still in place: Yes Assessment/Plan Assessment/Plan - Hypokalemia- replace K, AM Labs. - Septic shock due to bilateral pneumonia and UTI, resolving. Continue antibiotics per ID. Dr Brown is following in infection disease consultation. 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 Continue Lovenox. - Acute kidney injury, resolving. - Hypernatremia, resolved. Dr Sorensen is following in nephrology consultation. - Hypokalemia, continue k protocol. - Pancytopenia most likely secondary to sepsis - Dysphagia with PEG. Continue tube G-tube feeding - VDRF with tracheostomy - Hydrocephalus, status post TIN CAN LABORER shunt. - Polyuria, improving. - Diarrhea Further recommendations based on clinical course. Plan of care discussed with Dr. Dozier Exam/Review of Systems Vital Signs Vitals Vital Signs Date Time Temp Pulse Resp B/P Pulse Ox O2 Delivery O2 Flow Rate FiO2 05/08/17 15:56 99.3 92 21 126/86 98 05/08/17 15:10 30 Intake and Output 05/07/17 05/07/17 05/08/17 15:00 23:00 07:00 Intake Total 2360 ml Output Total 2000 ml Balance 360 ml Exam Constitutional: frail Respiratory: diminished breath sounds Cardiovascular: nl pulses Gastrointestinal: non-tender, soft Musculoskeletal: muscle weakness Results Result Diagram: 05/08/17 0558 05/08/17 0558 Results 24 hrs Laboratory Tests Test 05/08/17 05:58 White Blood Count 5.5 # Red Blood Count 3.10 L Hemoglobin 8.9 L Hematocrit 27.5 L Mean Corpuscular Volume 88.7 Mean Corpuscular Hemoglobin 28.7 L Mean Corpuscular Hemoglobin Concent 32.4 Red Cell Distribution Width 14.6 H Platelet Count 305 Mean Platelet Volume 11.2 H Neutrophils % 74.1 Lymphocytes % 14.1 L Monocytes % 8.3 Eosinophils % 1.3 Basophils % 0.9 Nucleated Red Blood Cells % 0.0 Neutrophils # 4.1 Lymphocytes # 0.8 Monocytes # 0.5 Eosinophils # 0.1 Basophils # 0.1 Nucleated Red Blood Cells # 0.0 Sodium Level 139 Potassium Level 3.2 L Chloride Level 103 Carbon Dioxide Level 30 Anion Gap 9 Blood Urea Nitrogen 7 Creatinine 0.41 L Glucose Level 104 Calcium Level 9.7 Medications Medications Current Medications Acetaminophen (Tylenol Liquid) 650 mg Q4 PRN GTB PAIN AND OR ELEVATED TEMP Last administered on 05/05/17 13:23; Admin Dose 650 MG; Start 04/25/17 at 23:00 Eye Lubricant (Akwa Oint) 1 applic QID BOTH EYES Last administered on 13:49; Admin Dose 1 APPLIC; Start 04/26/17 at 09:00 Bromocriptine Mesylate (Parlodel) 30 mg DAILY GTB Last administered on 09:52; Admin Dose 30 MG; Start 04/26/17 at 09:00 Chlorhexidine Gluconate (Peridex) 15 ml BID MM Last administered on 05/08/17 09:53; Admin Dose 15 ML; Start 04/26/17 at 09:00 Ferrous Sulfate (Feosol Liquid Cup) 300 mg BID GTB Last administered on 09:52; Admin Dose 300 MG; Start 04/26/17 at 09:00 Hydrocortisone (Cortef) 20 mg DAILY GTB Last administered on 05/08/17 09:52; Admin Dose 20 MG; Start 04/26/17 at 09:00 Ondansetron HCl (Zofran Tab) 4 mg Q8 PRN GTB NAUSEA AND/OR VOMITING; Start at 23:00 Lactobacillus Acidophilus (Florajen3 Capsule) 1 each DAILY PEG Last administered on 05/08/17 09:53; Admin Dose 1 EACH; Start 04/26/17 at 09:00 Ascorbic Acid (Vitamin C) 250 mg BID GTB Last administered on 05/08/17 09:52; Admin Dose 250 MG; Start 04/26/17 at 09:00 Famotidine (Pepcid) 20 mg BID GTB Last administered on 05/08/17 09:52; Admin Dose 20 MG; Start 04/26/17 at 09:00 Morphine Sulfate (morphine) 2 mg Q4H PRN IV PAIN Last administered on 14:46; Admin Dose 2 MG; Start 04/26/17 at 16:30 Posaconazole (Noxafil) 400 mg Q8 PO Last administered on 05/08/17 13:49; Admin Dose 400 MG; Start 04/30/17 at 22:00 Ergocalciferol (Drisdol Liquid (Ped)) 50,000 units Q7D GTB Last administered on 05/02/17 09:30; Admin Dose 50,000 UNITS; Start 05/02/17 at 09:30 Enoxaparin Sodium (Lovenox) 50 mg Q12 SC Last administered on 05/08/17 10:08; Admin Dose 50 MG; Start 05/03/17 at 09:30 Diphenoxylate HCl/ Atropine (Lomotil Liquid Cup) 5 ml Q6H PRN PO DIARRHEA; Start 05/03/17 at 18:00 Collagenase 1 applic 1 applic DAILY TOP Last administered on 05/08/17 09:53; Admin Dose 1 APPLIC; Start 05/04/17 at 14:30 Potassium Chloride/Sodium Chloride (NS-KCl 20 Meq) 1,000 ml @ 80 mls/hr [id number] IV Last administered on 05/08/17 13:49; Admin Dose 80 MLS/HR; Start 05/06/17 at 11:30 Desmopressin Acetate 0.05 mg 0.05 mg DAILY GTB Last administered on 05/08/17 09:52; Admin Dose 0.05 MG; Start 05/07/17 at 09:00 Acyclovir/Sodium Chloride (Zovirax/NS) 100 ml @ 100 mls/hr Q8 IVPB Last administered on 05/08/17 13:49; Admin Dose 100 MLS/HR; Start 05/07/17 at 14:00 Vancomycin HCl 125 mg 125 mg Q6 GTB Last administered on 05/08/17 14:54; Admin Dose 125 MG; Start 05/08/17 at 15:00 Potassium Chloride/Sodium Chloride (KCl/NS) 110 ml @ 55 mls/hr ONCE ONCE IVPB ; Start 05/08/17 at 16:30; Stop 05/08/17 at 18:29 BATSHEVA MCKEON May 08, 2017 16:17
[2017-05-08] MEDS ORDERED: POTASSIUM CHLORIDE 20 MEQ in SOD CHLORIDE 0.9% 100 ML IVPB ONE (16:30)
--- NOTE | 2017-05-08 17:30 | CONS ---
Date/Time of Note Date/Time of Note DATE: 05/08/17 TIME: 17:29 Consult Date/Type/Reason Admit Date/Time Apr 25, 2017 at 12:31 Initial Consult Date 04/25/17 Type of Consultation: Pulm Ordering Provider: HELEN CASTELLANO MD Subjective No events on vent Objective Vital Signs Date Time Temp Pulse Resp B/P Pulse Ox O2 Delivery O2 Flow Rate FiO2 05/08/17 17:05 93 16 97 30 05/08/17 15:56 99.3 126/86 Intake and Output 05/07/17 05/07/17 05/08/17 15:00 23:00 07:00 Intake Total 2360 ml Output Total 2000 ml Balance 360 ml Exam HEENT: Pupils equal, round, and reactive to light. Tracheostomy site clean and intact. CARDIAC: S1, S2, 1/6 systolic ejection murmur CHEST: Diminished air entry bilaterally. ABDOMEN: Mildly distended. Bowel sounds present no guarding or rebound EXTREMITIES: No cyanosis, clubbing edema +1 NEUROLOGIC: Generalized weakness, unable to assess. Results/Medications Result Diagram: 05/08/17 0558 05/08/17 0558 Results 24 hrs Laboratory Tests Test 05/08/17 05:58 White Blood Count 5.5 # Red Blood Count 3.10 L Hemoglobin 8.9 L Hematocrit 27.5 L Mean Corpuscular Volume 88.7 Mean Corpuscular Hemoglobin 28.7 L Mean Corpuscular Hemoglobin Concent 32.4 Red Cell Distribution Width 14.6 H Platelet Count 305 Mean Platelet Volume 11.2 H Neutrophils % 74.1 Lymphocytes % 14.1 L Monocytes % 8.3 Eosinophils % 1.3 Basophils % 0.9 Nucleated Red Blood Cells % 0.0 Neutrophils # 4.1 Lymphocytes # 0.8 Monocytes # 0.5 Eosinophils # 0.1 Basophils # 0.1 Nucleated Red Blood Cells # 0.0 Sodium Level 139 Potassium Level 3.2 L Chloride Level 103 Carbon Dioxide Level 30 Anion Gap 9 Blood Urea Nitrogen 7 Creatinine 0.41 L Glucose Level 104 Calcium Level 9.7 Medications Current Medications Acetaminophen (Tylenol Liquid) 650 mg Q4 PRN GTB PAIN AND OR ELEVATED TEMP Last administered on 05/05/17t 13:23; Admin Dose 650 MG; Start 04/25/17 at 23:00 Eye Lubricant (Akwa Oint) 1 applic QID BOTH EYES Last administered on 16:43; Admin Dose 1 APPLIC; Start 04/26/17 at 09:00 Bromocriptine Mesylate (Parlodel) 30 mg DAILY GTB Last administered on 09:52; Admin Dose 30 MG; Start 04/26/17 at 09:00 Chlorhexidine Gluconate (Peridex) 15 ml BID MM Last administered on 05/08/17 09:53; Admin Dose 15 ML; Start 04/26/17 at 09:00 Ferrous Sulfate (Feosol Liquid Cup) 300 mg BID GTB Last administered on 09:52; Admin Dose 300 MG; Start 04/26/17 at 09:00 Hydrocortisone (Cortef) 20 mg DAILY GTB Last administered on 05/08/17 09:52; Admin Dose 20 MG; Start 04/26/17 at 09:00 Ondansetron HCl (Zofran Tab) 4 mg Q8 PRN GTB NAUSEA AND/OR VOMITING; Start at 23:00 Lactobacillus Acidophilus (Florajen3 Capsule) 1 each DAILY PEG Last administered on 05/08/17 09:53; Admin Dose 1 EACH; Start 04/26/17 at 09:00 Ascorbic Acid (Vitamin C) 250 mg BID GTB Last administered on 05/08/17 09:52; Admin Dose 250 MG; Start 04/26/17 at 09:00 Famotidine (Pepcid) 20 mg BID GTB Last administered on 05/08/17 09:52; Admin Dose 20 MG; Start 04/26/17 at 09:00 Morphine Sulfate (morphine) 2 mg Q4H PRN IV PAIN Last administered on 14:46; Admin Dose 2 MG; Start 04/26/17 at 16:30 Posaconazole (Noxafil) 400 mg Q8 PO Last administered on 05/08/17 13:49; Admin Dose 400 MG; Start 04/30/17 at 22:00 Ergocalciferol (Drisdol Liquid (Ped)) 50,000 units Q7D GTB Last administered on 05/02/17 09:30; Admin Dose 50,000 UNITS; Start 05/02/17 at 09:30 Enoxaparin Sodium (Lovenox) 50 mg Q12 SC Last administered on 05/08/17 10:08; Admin Dose 50 MG; Start 05/03/17 at 09:30 Diphenoxylate HCl/ Atropine (Lomotil Liquid Cup) 5 ml Q6H PRN PO DIARRHEA; Start 05/03/17 at 18:00 Collagenase 1 applic 1 applic DAILY TOP Last administered on 05/08/17 09:53; Admin Dose 1 APPLIC; Start 05/04/17 at 14:30 Potassium Chloride/Sodium Chloride (NS-KCl 20 Meq) 1,000 ml @ 80 mls/hr [id number] IV Last administered on 05/08/17 13:49; Admin Dose 80 MLS/HR; Start 05/06/17 at 11:30 Desmopressin Acetate 0.05 mg 0.05 mg DAILY GTB Last administered on 05/08/17 09:52; Admin Dose 0.05 MG; Start 05/07/17 at 09:00 Acyclovir/Sodium Chloride (Zovirax/NS) 100 ml @ 100 mls/hr Q8 IVPB Last administered on 05/08/17 13:49; Admin Dose 100 MLS/HR; Start 05/07/17 at 14:00 Vancomycin HCl 125 mg 125 mg Q6 GTB Last administered on 05/08/17 14:54; Admin Dose 125 MG; Start 05/08/17 at 15:00 Potassium Chloride/Sodium Chloride (KCl/NS) 110 ml @ 55 mls/hr ONCE ONCE IVPB Last administered on 05/08/17 16:43; Admin Dose 55 MLS/HR; Start 05/08/17 at 16:30; Stop 05/08/17 at 18:29 Assessment/Plan Additional Assessment/Plan IMP: 1. Disseminated coccidiomycosis with encephalopathy. 2. Vent dependent respiratory failure 3. s/p Septic shock 4. Hypokalemia 5. Anemia of chronic disease RECS: 1. Continue mechanical ventilation 2. Abx per ID 3. TF/Free H20 4. DVT GI prophylaxis CASI KNOWLES MD May 08, 2017 17:30
[2017-05-09] VITALS (22 sets, daily range): BP systolic 90–124; BP diastolic 55–81; PULSE 92–119; RESP 18–26
[2017-05-09] MEDS: VANCOMYCIN HCL 250 MG/5ML POSYG GTB SCH ×4 (00:35→17:34)
[2017-05-09] MEDS: NS + KCL 20 MEQ 1,000 ML IV SCH ×2 (02:00→12:01)
[2017-05-09 05:57] LABS: BASOPHIL # 0.1 10^3/ul (0.0-0.1); BASOPHILS % 0.9 % (0.0-2.0); EOSINOPHILS % 0.4 % (0.0-7.0); HEMATOCRIT 29.2 % (42.0-52.0); HEMOGLOBIN 9.5 g/dl (14.0-18.0); LYMPHOCYTES % 17.4 % (15.0-51.0); MEAN CORPUSCULAR HEMOGLOBIN 29.4 pg (29.0-33.0); MEAN CORPUSCULAR HGB CONC 32.5 g/dl (32.0-37.0); MEAN CORPUSCULAR VOLUME 90.4 fl (82.0-101.0); MEAN PLATELET VOLUME 11.2 fl (7.4-10.4); MONOCYTE # 0.6 10^3/ul (0.3-0.9); MONOCYTES % 11.6 % (0.0-11.0); NEUTROPHIL # 3.8 10^3/ul (1.6-7.5); NEUTROPHILS % 68.8 % (39.0-77.0); PLATELET COUNT 327 10^3/UL (140-415); RED BLOOD COUNT 3.23 10^6/ul (4.70-6.10); RED CELL DISTRIBUTION WIDTH 14.4 % (11.5-14.5); WHITE BLOOD COUNT 5.5 10^3/ul (4.8-10.8)
[2017-05-09] MEDS: ACYCLOVIR 500 MG in SOD CHLORIDE 0.9% 100 ML IVPB SCH ×3 (06:09→22:22)
[2017-05-09] MEDS: POSACONAZOLE PO SCH ×3 (06:10→22:21)
[2017-05-09 06:21] LABS: CREATININE 0.41 mg/dl (0.61-1.24); POTASSIUM 3.4 mmol/L (3.5-5.1)
[2017-05-09] MEDS: OCULAR LUBRICANT 3.5 GM OPH OINT BOTH EYES SCH ×4 (09:39→22:23)
[2017-05-09] MEDS: DESMOPRESSIN 0.1 MG TAB GTB SCH (09:40)
[2017-05-09] MEDS: HYDROCORTISONE 20 MG TAB GTB SCH (09:40)
[2017-05-09] MEDS: FERROUS SULFATE 60 MG/ML 5ML CUP GTB SCH ×2 (09:40→22:22)
[2017-05-09] MEDS: ASCORBIC ACID 250 MG TAB GTB SCH ×2 (09:40→22:22)
[2017-05-09] MEDS: L ACIDOPHIL/B LACTIS/B LONGUM CAPSULE PEG SCH (09:40)
[2017-05-09] MEDS: BROMOCRIPTINE 2.5 MG TAB GTB SCH (09:40)
[2017-05-09] MEDS: CHLORHEXIDINE GLUCONATE 15 ML UD CUP MM SCH ×2 (09:40→22:22)
[2017-05-09] MEDS: FAMOTIDINE 20 MG TAB GTB SCH ×2 (09:41→22:23)
[2017-05-09] MEDS: ENOXAPARIN 60 MG/0.6 ML SYG SC SCH ×2 (09:42→22:28)
[2017-05-09] MEDS: ERGOCALCIFEROL (8000 UNITS/ML PO SYG) GTB SCH (09:47)
--- NOTE | 2017-05-09 11:59 | CONS ---
Date/Time of Note Date/Time of Note DATE: 05/09/17 TIME: 11:58 Assessment/Plan Assessment/Plan Additional Assessment/Plan 1. Non Oliguric Acute kidney injury due to septic shock -Improved 2. Hypernaremia- resolved 3. Septic shock on levophed - Resolved 4. Acute on chronic resp failure s/p Tracheostomy- on ventilator, pulmonary has been following 5. H/o Fungal meningitis, currently comatose 6. H/O Right sided RENTAL SALESPERSON shunt 7. H/o G tube placement 8. [employer] 9. 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 Plan: Na improved to 143- continue DDAVP to 0.05 daily , KCl 20mEQ IV x 1 extra dose in addition to IVF KCL , continue NS with KCL at current rate ID, pulmonary has been following , on IV meropenem and IV acyclovir will follow up Consultation Date/Type/Reason Admit Date/Time Apr 25, 2017 at 12:31 Initial Consult Date 04/25/17 Type of Consultation: NEPHROLOGY Referring Provider: HELEN CASTELLANO MD 24 HR Interval Summary Free Text/Dictation K low, on IVF NS with KCL, BP stable, afebrile Exam/Review of Systems Vital Signs Vitals Vital Signs Date Time Temp Pulse Resp B/P Pulse Ox O2 Delivery O2 Flow Rate FiO2 05/09/17 11:29 112 18 97 30 05/09/17 07:56 101.3 90/55 Intake and Output 05/08/17 05/08/17 05/09/17 15:00 23:00 07:00 Intake Total 200 ml 1920 ml 1000 ml Output Total 1550 ml 1200 ml Balance 200 ml 370 ml -200 ml Exam Constitutional: non-verbal Neck: other (Tracheostomy), supple Respiratory: diminished breath sounds Cardiovascular: nl pulses Gastrointestinal: non-tender, other (G-tube), soft Extremities: normal pulses Results Result Diagram: 05/09/1727 05/09/17526 Results 24 hrs Laboratory Tests Test 05/09/17 05:27 White Blood Count 5.5 Red Blood Count 3.23 L Hemoglobin 9.5 L Hematocrit 29.2 L Mean Corpuscular Volume 90.4 Mean Corpuscular Hemoglobin 29.4 Mean Corpuscular Hemoglobin Concent 32.5 Red Cell Distribution Width 14.4 Platelet Count 327 Mean Platelet Volume 11.2 H Neutrophils % 68.8 Lymphocytes % 17.4 Monocytes % 11.6 H Eosinophils % 0.4 Basophils % 0.9 Nucleated Red Blood Cells % 0.0 Neutrophils # 3.8 Lymphocytes # 1.0 Monocytes # 0.6 Eosinophils # 0.0 Basophils # 0.1 Nucleated Red Blood Cells # 0.0 Sodium Level 143 Potassium Level 3.4 L Chloride Level 107 Carbon Dioxide Level 30 Anion Gap 9 Blood Urea Nitrogen 5 L Creatinine 0.41 L Glucose Level 110 Calcium Level 10.0 Medications Medications Current Medications Acetaminophen (Tylenol Liquid) 650 mg Q4 PRN GTB PAIN AND OR ELEVATED TEMP Last administered on 05/05/17 13:23; Admin Dose 650 MG; Start 04/25/17 at 23:00 Eye Lubricant (Akwa Oint) 1 applic QID BOTH EYES Last administered on 09:39; Admin Dose 1 APPLIC; Start 04/26/17 at 09:00 Bromocriptine Mesylate (Parlodel) 30 mg DAILY GTB Last administered on 09:40; Admin Dose 30 MG; Start 04/26/17 at 09:00 Chlorhexidine Gluconate (Peridex) 15 ml BID MM Last administered on 05/09/17 09:40; Admin Dose 15 ML; Start 04/26/17 at 09:00 Ferrous Sulfate (Feosol Liquid Cup) 300 mg BID GTB Last administered on 09:40; Admin Dose 300 MG; Start 04/26/17 at 09:00 Hydrocortisone (Cortef) 20 mg DAILY GTB Last administered on 05/09/17 09:40; Admin Dose 20 MG; Start 04/26/17 at 09:00 Ondansetron HCl (Zofran Tab) 4 mg Q8 PRN GTB NAUSEA AND/OR VOMITING; Start at 23:00 Lactobacillus Acidophilus (Florajen3 Capsule) 1 each DAILY PEG Last administered on 05/09/17 09:40; Admin Dose 1 EACH; Start 04/26/17 at 09:00 Ascorbic Acid (Vitamin C) 250 mg BID GTB Last administered on 05/09/17 09:40; Admin Dose 250 MG; Start 04/26/17 at 09:00 Famotidine (Pepcid) 20 mg BID GTB Last administered on 05/09/17 09:41; Admin Dose 20 MG; Start 04/26/17 at 09:00 Morphine Sulfate (morphine) 2 mg Q4H PRN IV PAIN Last administered on 14:46; Admin Dose 2 MG; Start 04/26/17 at 16:30 Posaconazole (Noxafil) 400 mg Q8 PO Last administered on 05/09/17 06:10; Admin Dose 400 MG; Start 04/30/17 at 22:00 Ergocalciferol (Drisdol Liquid (Ped)) 50,000 units Q7D GTB Last administered on 05/09/17 09:47; Admin Dose 50,000 UNITS; Start 05/02/17 at 09:30 Enoxaparin Sodium (Lovenox) 50 mg Q12 SC Last administered on 05/09/17 09:42; Admin Dose 50 MG; Start 05/03/17 at 09:30 Diphenoxylate HCl/ Atropine (Lomotil Liquid Cup) 5 ml Q6H PRN PO DIARRHEA; Start 05/03/17 at 18:00 Collagenase 1 applic 1 applic DAILY TOP Last administered on 05/08/17 09:53; Admin Dose 1 APPLIC; Start 05/04/17 at 14:30 Potassium Chloride/Sodium Chloride (NS-KCl 20 Meq) 1,000 ml @ 80 mls/hr [id number] IV Last administered on 05/08/17 13:49; Admin Dose 80 MLS/HR; Start 05/06/17 at 11:30 Desmopressin Acetate 0.05 mg 0.05 mg DAILY GTB Last administered on 05/09/17 09:40; Admin Dose 0.05 MG; Start 05/07/17 at 09:00 Acyclovir/Sodium Chloride (Zovirax/NS) 100 ml @ 100 mls/hr Q8 IVPB Last administered on 05/09/17 06:09; Admin Dose 100 MLS/HR; Start 05/07/17 at 14:00 Vancomycin HCl 125 mg 125 mg Q6 GTB Last administered on 05/09/17 06:09; Admin Dose 125 MG; Start 05/08/17 at 15:00 Meropenem/Sodium Chloride (Merrem 1 Gm/50 ml (Pmx)) 50 ml @ 100 mls/hr Q8 IVPB ; Start 05/09/17 at 14:00 FARHAT RUBIO MD May 09, 2017 11:59
[2017-05-09] MEDS: COLLAGENASE 30 GM TUBE TOP SCH (12:00)
--- NOTE | 2017-05-09 12:11 | CONS ---
Date/Time of Note Date/Time of Note DATE: 05/09/17 TIME: 12:05 Assessment/Plan Assessment/Plan Chief Complaint/Hosp Course assessment/impression - recurrent fever - C diff colitis - septic shock due to pneumonia and UTI - UTI due to ESBL+E. coli. Took pip/tazo and then meropenem - b/l pneumonia due to klebsiella, EBL+E. coli. Took pip/tazo and then meropenem - herpes labialis - h/o disseminated coccidioides mycosis infection, meningitis. Cocci CF 1:16 on 04/26/2017 - s/p VPS placement - VDRF s/p tracheostomy - PEG dependet status - pancytopenia, due to septic shock on admission - thrombocytopenia due to sepsis, improving recommendations - ordered: blood cultures x2, resp culture, urinalysis and urine culture, CXR - posaconazole trough level was sent on 05/07/2017 and the result is pending - re-start meropenem (restart 05/09/2017-) - continue pGT vancomycin (05/07/2017) - continue IV acyclovir (05/07/2017-), it was changed from pGT to IV because herpes labialis progressed despite >7 days of pGT acyclovir - continue posaconazole to 400 mg q8hrs (posaconazole trough level 0.32 on 2016, the dose was increased on 04/29/2017 according to the advise from JOE Galeano at neurosurgery department at [facility] informing us that Pt's posaconazole level had been low at [facility]) - enteric contact precautions - management d/w Pt's mother and RN Problems: Consultation Date/Type/Reason Admit Date/Time Apr 25, 2017 at 12:31 Initial Consult Date 04/25/17 Type of Consultation: ID Referring Provider: HELEN CASTELLANO MD 24 HR Interval Summary Subjective hx not possible: pt non-verbal Exam/Review of Systems Vital Signs Vitals Vital Signs Date Time Temp Pulse Resp B/P Pulse Ox O2 Delivery O2 Flow Rate FiO2 05/09/17 11:29 112 18 97 30 05/09/17 07:56 101.3 90/55 Intake and Output 05/08/17 05/08/17 05/09/17 14:59 22:59 06:59 Intake Total 200 ml 1920 ml 1000 ml Output Total 1550 ml 1200 ml Balance 200 ml 370 ml -200 ml Exam Constitutional: frail, non-verbal Psych: confusion Head: other (s/p VPS placement) Eyes: nl conjunctiva ENMT: nl external ears & nose, nl nasal mucosa & septum, other (herpes eschar on the lower lip) Neck: other (trach) Respiratory: crackles/rales Cardiovascular: nl pulses, regular rate and rhythm Gastrointestinal: non-tender, other (GT), soft Genitourinary - Male: other (FC) Musculoskeletal: nl extremities to inspection Extremities: No edema Neurological: unresponsive Skin: nl turgor Results Result Diagram: 05/09/1752605/09/17526 Results 24 hrs Laboratory Tests Test 05/09/17 05:27 White Blood Count 5.5 Red Blood Count 3.23 L Hemoglobin 9.5 L Hematocrit 29.2 L Mean Corpuscular Volume 90.4 Mean Corpuscular Hemoglobin 29.4 Mean Corpuscular Hemoglobin Concent 32.5 Red Cell Distribution Width 14.4 Platelet Count 327 Mean Platelet Volume 11.2 H Neutrophils % 68.8 Lymphocytes % 17.4 Monocytes % 11.6 H Eosinophils % 0.4 Basophils % 0.9 Nucleated Red Blood Cells % 0.0 Neutrophils # 3.8 Lymphocytes # 1.0 Monocytes # 0.6 Eosinophils # 0.0 Basophils # 0.1 Nucleated Red Blood Cells # 0.0 Sodium Level 143 Potassium Level 3.4 L Chloride Level 107 Carbon Dioxide Level 30 Anion Gap 9 Blood Urea Nitrogen 5 L Creatinine 0.41 L Glucose Level 110 Calcium Level 10.0 Medications Medications Current Medications Acetaminophen (Tylenol Liquid) 650 mg Q4 PRN GTB PAIN AND OR ELEVATED TEMP Last administered on 05/05/17 13:23; Admin Dose 650 MG; Start 04/25/17 at 23:00 Eye Lubricant (Akwa Oint) 1 applic QID BOTH EYES Last administered on 12:02; Admin Dose 1 APPLIC; Start 04/26/17 at 09:00 Bromocriptine Mesylate (Parlodel) 30 mg DAILY GTB Last administered on 09:40; Admin Dose 30 MG; Start 04/26/17 at 09:00 Chlorhexidine Gluconate (Peridex) 15 ml BID MM Last administered on 05/09/17 09:40; Admin Dose 15 ML; Start 04/26/17 at 09:00 Ferrous Sulfate (Feosol Liquid Cup) 300 mg BID GTB Last administered on 09:40; Admin Dose 300 MG; Start 04/26/17 at 09:00 Hydrocortisone (Cortef) 20 mg DAILY GTB Last administered on 05/09/17 09:40; Admin Dose 20 MG; Start 04/26/17 at 09:00 Ondansetron HCl (Zofran Tab) 4 mg Q8 PRN GTB NAUSEA AND/OR VOMITING; Start at 23:00 Lactobacillus Acidophilus (Florajen3 Capsule) 1 each DAILY PEG Last administered on 05/09/17 09:40; Admin Dose 1 EACH; Start 04/26/17 at 09:00 Ascorbic Acid (Vitamin C) 250 mg BID GTB Last administered on 05/09/17 09:40; Admin Dose 250 MG; Start 04/26/17 at 09:00 Famotidine (Pepcid) 20 mg BID GTB Last administered on 05/09/17 09:41; Admin Dose 20 MG; Start 04/26/17 at 09:00 Morphine Sulfate (morphine) 2 mg Q4H PRN IV PAIN Last administered on 14:46; Admin Dose 2 MG; Start 04/26/17 at 16:30 Posaconazole (Noxafil) 400 mg Q8 PO Last administered on 05/09/17 06:10; Admin Dose 400 MG; Start 04/30/17 at 22:00 Ergocalciferol (Drisdol Liquid (Ped)) 50,000 units Q7D GTB Last administered on 05/09/17 09:47; Admin Dose 50,000 UNITS; Start 05/02/17 at 09:30 Enoxaparin Sodium (Lovenox) 50 mg Q12 SC Last administered on 05/09/17 09:42; Admin Dose 50 MG; Start 05/03/17 at 09:30 Diphenoxylate HCl/ Atropine (Lomotil Liquid Cup) 5 ml Q6H PRN PO DIARRHEA; Start 05/03/17 at 18:00 Collagenase 1 applic 1 applic DAILY TOP Last administered on 05/09/17 12:00; Admin Dose 1 APPLIC; Start 05/04/17 at 14:30 Potassium Chloride/Sodium Chloride (NS-KCl 20 Meq) 1,000 ml @ 80 mls/hr [id number] IV Last administered on 05/09/17 12:01; Admin Dose 80 MLS/HR; Start 05/06/17 at 11:30 Desmopressin Acetate 0.05 mg 0.05 mg DAILY GTB Last administered on 05/09/17 09:40; Admin Dose 0.05 MG; Start 05/07/17 at 09:00 Acyclovir/Sodium Chloride (Zovirax/NS) 100 ml @ 100 mls/hr Q8 IVPB Last administered on 05/09/17 06:09; Admin Dose 100 MLS/HR; Start 05/07/17 at 14:00 Vancomycin HCl 125 mg 125 mg Q6 GTB Last administered on 05/09/17 12:00; Admin Dose 125 MG; Start 05/08/17 at 15:00 Meropenem/Sodium Chloride 50 ml @ 100 mls/hr Q8 IVPB ; Start 05/09/17 at 14:00 Potassium Chloride/Sodium Chloride (KCl/NS) 110 ml @ 55 mls/hr ONCE ONCE IVPB ; Start 05/09/17 at 13:00; Stop 05/09/17 at 14:59 ELENI EVANS M.D. May 09, 2017 12:11
--- NOTE | 2017-05-09 12:23 | RADRPT ---
PROCEDURE: XR Chest. CLINICAL INDICATION: Fever TECHNIQUE: Anterior chest x-ray. COMPARISON: 05/05/2017, CT dated 04/25/2017 FINDINGS: Tracheostomy tube and ventriculoperitoneal shunt are unchanged from previous exam. Right-sided PICC line terminates the cavoatrial junction. Patchy airspace opacities throughout both lungs with lower lung zone predominance is more prominent than on previous exam. Blunting of the left costophrenic angle suggest small pleural effusion, unchanged. There is no evidence of pneumothorax. The cardiomediastinal silhouette is unremarkable. The soft tissues are normal. Osseous structures are unremarkable. IMPRESSION: 1. Stable and satisfactory position once or lines. 2. Diffuse bilateral air space opacities with lower lung zone predominance, suggesting pneumonia, i ncreased from previous exam. 3. Small left pleural effusion, unchanged. RPTAT: QQ .Romero Logan MD, MD Date Time Electronically viewed and signed by .Romero Logan MD, on 05/09/2017 12:23 .M/
[2017-05-09] MEDS ORDERED: POTASSIUM CHLORIDE 20 MEQ in SOD CHLORIDE 0.9% 100 ML IVPB ONE (13:00)
[2017-05-09 13:19] LABS: ADD UMIC NO; UR ASCORBIC ACID 20 mg/dL (NEGATIVE); UR BILIRUBIN (Dip) NEGATIVE (NEGATIVE); UR BLOOD (Dip) NEGATIVE (NEGATIVE); UR CLARITY SLIGHTLY CLOUDY (CLEAR); UR COLOR YELLOW (YELLOW); UR GLUCOSE (Dip) NEGATIVE (NEGATIVE); UR KETONES (Dip) NEGATIVE (NEGATIVE); UR LEUKOCYTE ESTERASE (Dip) NEGATIVE Leu/ul (NEGATIVE); UR NITRITE (Dip) NEGATIVE (NEGATIVE); UR RBC 8 /HPF (0-5); UR SQUAMOUS EPITHELIAL CELL FEW /HPF (FEW); UR TOTAL PROTEIN (Dip) NEGATIVE (NEGATIVE); UR UROBILINOGEN (Dip) NEGATIVE (NEGATIVE)
[2017-05-09] MEDS: MEROPENEM 1 GM/50ML(PMX) 50 ML IVPB SCH ×2 (14:48→22:59)
--- NOTE | 2017-05-09 15:54 | PN ---
Date/Time of Note Date/Time of Note DATE: 05/09/17 TIME: 15:52 Assessment/Plan Lines/Catheters IV Catheter Type (from [facility]): PICC Line Urinary Cath still in place: Yes Assessment/Plan Assessment/Plan - Hypokalemia- replace K, AM Labs. - Septic shock due to bilateral pneumonia and UTI - -Continue antibiotics per ID. Dr Brown is following in infection disease consultation. 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 Continue Lovenox. - Acute kidney injury, resolving. - Hypernatremia, resolved. Dr Sorensen is following in nephrology consultation. - Hypokalemia, continue k protocol. - Pancytopenia most likely secondary to sepsis - Dysphagia with PEG. Continue tube G-tube feeding - VDRF with tracheostomy - Hydrocephalus, status post DESK ATTENDANT shunt. - Polyuria, improving. - Diarrhea Further recommendations based on clinical course. Plan of care discussed with Dr. Dozier Subjective 24 Hr Interval Summary Free Text/Dictation febrile, ID follows, mother at bed side- all Qs answered., dw staff Constitutional: requiring IVF, requiring O2 Exam/Review of Systems Vital Signs Vitals Vital Signs Date Time Temp Pulse Resp B/P Pulse Ox O2 Delivery O2 Flow Rate FiO2 05/09/17 15:12 100 19 98 30 05/09/17 07:56 101.3 90/55 Intake and Output 05/08/17 05/08/17 05/09/17 15:00 23:00 07:00 Intake Total 200 ml 1920 ml 1000 ml Output Total 1550 ml 1200 ml Balance 200 ml 370 ml -200 ml Exam Constitutional: well developed Respiratory: diminished breath sounds Cardiovascular: nl pulses Gastrointestinal: other, soft Musculoskeletal: muscle weakness Results Result Diagram: 05/09/1752605/09/17526 Results 24 hrs Laboratory Tests Test 05/09/17 05:27 05/09/17 12:45 White Blood Count 5.5 Red Blood Count 3.23 L Hemoglobin 9.5 L Hematocrit 29.2 L Mean Corpuscular Volume 90.4 Mean Corpuscular Hemoglobin 29.4 Mean Corpuscular Hemoglobin Concent 32.5 Red Cell Distribution Width 14.4 Platelet Count 327 Mean Platelet Volume 11.2 H Neutrophils % 68.8 Lymphocytes % 17.4 Monocytes % 11.6 H Eosinophils % 0.4 Basophils % 0.9 Nucleated Red Blood Cells % 0.0 Neutrophils # 3.8 Lymphocytes # 1.0 Monocytes # 0.6 Eosinophils # 0.0 Basophils # 0.1 Nucleated Red Blood Cells # 0.0 Sodium Level 143 Potassium Level 3.4 L Chloride Level 107 Carbon Dioxide Level 30 Anion Gap 9 Blood Urea Nitrogen 5 L Creatinine 0.41 L Glucose Level 110 Calcium Level 10.0 Urine Color YELLOW Urine Clarity SLIGHTLY CLOUDY A Urine pH 7.0 Urine Specific [place] 1.010 Urine Ketones NEGATIVE Urine Nitrite NEGATIVE Urine Bilirubin NEGATIVE Urine Urobilinogen NEGATIVE Urine Leukocyte Esterase NEGATIVE Urine Microscopic RBC 8 H Urine Microscopic WBC 4 Urine Squamous Epithelial Cells FEW Urine Hemoglobin NEGATIVE Urine Glucose NEGATIVE Urine Total Protein NEGATIVE Medications Medications Current Medications Acetaminophen (Tylenol Liquid) 650 mg Q4 PRN GTB PAIN AND OR ELEVATED TEMP Last administered on 05/05/17 13:23; Admin Dose 650 MG; Start 04/25/17 at 23:00 Eye Lubricant (Akwa Oint) 1 applic QID BOTH EYES Last administered on 12:02; Admin Dose 1 APPLIC; Start 04/26/17 at 09:00 Bromocriptine Mesylate (Parlodel) 30 mg DAILY GTB Last administered on 09:40; Admin Dose 30 MG; Start 04/26/17 at 09:00 Chlorhexidine Gluconate (Peridex) 15 ml BID MM Last administered on 05/09/17 09:40; Admin Dose 15 ML; Start 04/26/17 at 09:00 Ferrous Sulfate (Feosol Liquid Cup) 300 mg BID GTB Last administered on 09:40; Admin Dose 300 MG; Start 04/26/17 at 09:00 Hydrocortisone (Cortef) 20 mg DAILY GTB Last administered on 05/09/17 09:40; Admin Dose 20 MG; Start 04/26/17 at 09:00 Ondansetron HCl (Zofran Tab) 4 mg Q8 PRN GTB NAUSEA AND/OR VOMITING; Start at 23:00 Lactobacillus Acidophilus (Florajen3 Capsule) 1 each DAILY PEG Last administered on 05/09/17 09:40; Admin Dose 1 EACH; Start 04/26/17 at 09:00 Ascorbic Acid (Vitamin C) 250 mg BID GTB Last administered on 05/09/17 09:40; Admin Dose 250 MG; Start 04/26/17 at 09:00 Famotidine (Pepcid) 20 mg BID GTB Last administered on 05/09/17 09:41; Admin Dose 20 MG; Start 04/26/17 at 09:00 Morphine Sulfate (morphine) 2 mg Q4H PRN IV PAIN Last administered on 14:46; Admin Dose 2 MG; Start 04/26/17 at 16:30 Posaconazole (Noxafil) 400 mg Q8 PO Last administered on 05/09/17 06:10; Admin Dose 400 MG; Start 04/30/17 at 22:00 Ergocalciferol (Drisdol Liquid (Ped)) 50,000 units Q7D GTB Last administered on 05/09/17 09:47; Admin Dose 50,000 UNITS; Start 05/02/17 at 09:30 Enoxaparin Sodium (Lovenox) 50 mg Q12 SC Last administered on 05/09/17 09:42; Admin Dose 50 MG; Start 05/03/17 at 09:30 Diphenoxylate HCl/ Atropine (Lomotil Liquid Cup) 5 ml Q6H PRN PO DIARRHEA; Start 05/03/17 at 18:00 Collagenase 1 applic 1 applic DAILY TOP Last administered on 05/09/17 12:00; Admin Dose 1 APPLIC; Start 05/04/17 at 14:30 Potassium Chloride/Sodium Chloride (NS-KCl 20 Meq) 1,000 ml @ 80 mls/hr [id number] IV Last administered on 05/09/17 12:01; Admin Dose 80 MLS/HR; Start 05/06/17 at 11:30 Desmopressin Acetate 0.05 mg 0.05 mg DAILY GTB Last administered on 05/09/17 09:40; Admin Dose 0.05 MG; Start 05/07/17 at 09:00 Acyclovir/Sodium Chloride (Zovirax/NS) 100 ml @ 100 mls/hr Q8 IVPB Last administered on 05/09/17 14:48; Admin Dose 100 MLS/HR; Start 05/07/17 at 14:00 Vancomycin HCl 125 mg 125 mg Q6 GTB Last administered on 05/09/17 12:00; Admin Dose 125 MG; Start 05/08/17 at 15:00 Meropenem/Sodium Chloride (Merrem 1 Gm/50 ml (Pmx)) 50 ml @ 100 mls/hr Q8 IVPB Last administered on 05/09/17 14:48; Admin Dose 100 MLS/HR; Start 05/09/17 at 14:00 BATSHEVA MCKEON May 09, 2017 15:54
--- NOTE | 2017-05-09 17:25 | CONS ---
Date/Time of Note Date/Time of Note DATE: 05/09/17 TIME: 17:24 Consult Date/Type/Reason Admit Date/Time Apr 25, 2017 at 12:31 Initial Consult Date 04/25/17 Type of Consultation: Pulm Ordering Provider: HELEN CASTELLANO MD Subjective No events overnight. On vent. Objective Vital Signs Date Time Temp Pulse Resp B/P Pulse Ox O2 Delivery O2 Flow Rate FiO2 05/09/17 16:26 96 05/09/17 16:07 100.4 20 123/76 100 05/09/17 15:12 30 Intake and Output 05/08/17 05/08/17 05/09/17 15:00 23:00 07:00 Intake Total 200 ml 1920 ml 1000 ml Output Total 1550 ml 1200 ml Balance 200 ml 370 ml -200 ml Exam HEENT: Pupils equal, round, and reactive to light. Tracheostomy site clean and intact. CARDIAC: S1, S2, 1/6 systolic ejection murmur CHEST: Diminished air entry bilaterally. ABDOMEN: Mildly distended. Bowel sounds present no guarding or rebound EXTREMITIES: No cyanosis, clubbing edema +1 NEUROLOGIC: Generalized weakness, unable to assess. Results/Medications Result Diagram: 05/09/1727 05/09/17 0527 Results 24 hrs Laboratory Tests Test 05/09/17 05:27 05/09/17 12:45 White Blood Count 5.5 Red Blood Count 3.23 L Hemoglobin 9.5 L Hematocrit 29.2 L Mean Corpuscular Volume 90.4 Mean Corpuscular Hemoglobin 29.4 Mean Corpuscular Hemoglobin Concent 32.5 Red Cell Distribution Width 14.4 Platelet Count 327 Mean Platelet Volume 11.2 H Neutrophils % 68.8 Lymphocytes % 17.4 Monocytes % 11.6 H Eosinophils % 0.4 Basophils % 0.9 Nucleated Red Blood Cells % 0.0 Neutrophils # 3.8 Lymphocytes # 1.0 Monocytes # 0.6 Eosinophils # 0.0 Basophils # 0.1 Nucleated Red Blood Cells # 0.0 Sodium Level 143 Potassium Level 3.4 L Chloride Level 107 Carbon Dioxide Level 30 Anion Gap 9 Blood Urea Nitrogen 5 L Creatinine 0.41 L Glucose Level 110 Calcium Level 10.0 Urine Color YELLOW Urine Clarity SLIGHTLY CLOUDY A Urine pH 7.0 Urine Specific [place] 1.010 Urine Ketones NEGATIVE Urine Nitrite NEGATIVE Urine Bilirubin NEGATIVE Urine Urobilinogen NEGATIVE Urine Leukocyte Esterase NEGATIVE Urine Microscopic RBC 8 H Urine Microscopic WBC 4 Urine Squamous Epithelial Cells FEW Urine Hemoglobin NEGATIVE Urine Glucose NEGATIVE Urine Total Protein NEGATIVE Medications Current Medications Acetaminophen (Tylenol Liquid) 650 mg Q4 PRN GTB PAIN AND OR ELEVATED TEMP Last administered on 05/05/17 13:23; Admin Dose 650 MG; Start 04/25/17 at 23:00 Eye Lubricant (Akwa Oint) 1 applic QID BOTH EYES Last administered on 12:02; Admin Dose 1 APPLIC; Start 04/26/17 at 09:00 Bromocriptine Mesylate (Parlodel) 30 mg DAILY GTB Last administered on 09:40; Admin Dose 30 MG; Start 04/26/17 at 09:00 Chlorhexidine Gluconate (Peridex) 15 ml BID MM Last administered on 05/09/17 09:40; Admin Dose 15 ML; Start 04/26/17 at 09:00 Ferrous Sulfate (Feosol Liquid Cup) 300 mg BID GTB Last administered on 09:40; Admin Dose 300 MG; Start 04/26/17 at 09:00 Hydrocortisone (Cortef) 20 mg DAILY GTB Last administered on 05/09/17 09:40; Admin Dose 20 MG; Start 04/26/17 at 09:00 Ondansetron HCl (Zofran Tab) 4 mg Q8 PRN GTB NAUSEA AND/OR VOMITING; Start at 23:00 Lactobacillus Acidophilus (Florajen3 Capsule) 1 each DAILY PEG Last administered on 05/09/17 09:40; Admin Dose 1 EACH; Start 04/26/17 at 09:00 Ascorbic Acid (Vitamin C) 250 mg BID GTB Last administered on 05/09/17 09:40; Admin Dose 250 MG; Start 04/26/17 at 09:00 Famotidine (Pepcid) 20 mg BID GTB Last administered on 05/09/17 09:41; Admin Dose 20 MG; Start 04/26/17 at 09:00 Morphine Sulfate (morphine) 2 mg Q4H PRN IV PAIN Last administered on 14:46; Admin Dose 2 MG; Start 04/26/17 at 16:30 Posaconazole (Noxafil) 400 mg Q8 PO Last administered on 05/09/17 06:10; Admin Dose 400 MG; Start 04/30/17 at 22:00 Ergocalciferol (Drisdol Liquid (Ped)) 50,000 units Q7D GTB Last administered on 05/09/17 09:47; Admin Dose 50,000 UNITS; Start 05/02/17 at 09:30 Enoxaparin Sodium (Lovenox) 50 mg Q12 SC Last administered on 05/09/17 09:42; Admin Dose 50 MG; Start 05/03/17 at 09:30 Diphenoxylate HCl/ Atropine (Lomotil Liquid Cup) 5 ml Q6H PRN PO DIARRHEA; Start 05/03/17 at 18:00 Collagenase 1 applic 1 applic DAILY TOP Last administered on 05/09/17 12:00; Admin Dose 1 APPLIC; Start 05/04/17 at 14:30 Potassium Chloride/Sodium Chloride (NS-KCl 20 Meq) 1,000 ml @ 80 mls/hr [id number] IV Last administered on 05/09/17 12:01; Admin Dose 80 MLS/HR; Start 05/06/17 at 11:30 Desmopressin Acetate 0.05 mg 0.05 mg DAILY GTB Last administered on 05/09/17 09:40; Admin Dose 0.05 MG; Start 05/07/17 at 09:00 Acyclovir/Sodium Chloride (Zovirax/NS) 100 ml @ 100 mls/hr Q8 IVPB Last administered on 05/09/17 14:48; Admin Dose 100 MLS/HR; Start 05/07/17 at 14:00 Vancomycin HCl 125 mg 125 mg Q6 GTB Last administered on 05/09/17 12:00; Admin Dose 125 MG; Start 05/08/17 at 15:00 Meropenem/Sodium Chloride (Merrem 1 Gm/50 ml (Pmx)) 50 ml @ 100 mls/hr Q8 IVPB Last administered on 05/09/17 14:48; Admin Dose 100 MLS/HR; Start 05/09/17 at 14:00 Assessment/Plan Additional Assessment/Plan IMP: 1. Disseminated coccidiomycosis with encephalopathy. 2. Vent dependent respiratory failure 3. s/p Septic shock 4. Hypokalemia 5. Anemia of chronic disease RECS: 1. Continue mechanical ventilation 2. Abx per ID 3. TF/Free H20 4. DVT GI prophylaxis CASI KNOWLES MD May 09, 2017 17:25
[2017-05-10] VITALS (23 sets, daily range): BP systolic 110–135; BP diastolic 69–92; PULSE 80–107; RESP 16–20
[2017-05-10] MEDS: VANCOMYCIN HCL 250 MG/5ML POSYG GTB SCH ×4 (00:38→17:06)
[2017-05-10] MEDS: MEROPENEM 1 GM/50ML(PMX) 50 ML IVPB SCH ×3 (05:23→21:31)
[2017-05-10] MEDS: NS + KCL 20 MEQ 1,000 ML IV SCH (05:23)
[2017-05-10] MEDS: POSACONAZOLE PO SCH ×3 (05:23→21:31)
[2017-05-10 05:51] LABS: BASOPHIL # 0.1 10^3/ul (0.0-0.1); BASOPHILS % 1.5 % (0.0-2.0); EOSINOPHILS # 0.1 10^3/ul (0.0-0.5); EOSINOPHILS % 1.5 % (0.0-7.0); HEMATOCRIT 27.7 % (42.0-52.0); LYMPHOCYTES # 0.9 10^3/ul (0.8-2.9); LYMPHOCYTES % 16.7 % (15.0-51.0); MEAN CORPUSCULAR HEMOGLOBIN 29.8 pg (29.0-33.0); MEAN CORPUSCULAR HGB CONC 32.5 g/dl (32.0-37.0); MEAN CORPUSCULAR VOLUME 91.7 fl (82.0-101.0); MONOCYTE # 0.6 10^3/ul (0.3-0.9); MONOCYTES % 10.4 % (0.0-11.0); NEUTROPHIL # 3.6 10^3/ul (1.6-7.5); PLATELET COUNT 316 10^3/UL (140-415); RED BLOOD COUNT 3.02 10^6/ul (4.70-6.10); RED CELL DISTRIBUTION WIDTH 14.2 % (11.5-14.5); WHITE BLOOD COUNT 5.3 10^3/ul (4.8-10.8)
[2017-05-10] MEDS: ACYCLOVIR 500 MG in SOD CHLORIDE 0.9% 100 ML IVPB SCH ×3 (05:52→22:35)
[2017-05-10 06:20] LABS: CALCIUM 9.8 mg/dl (8.4-10.2); CREATININE 0.42 mg/dl (0.61-1.24); POTASSIUM 3.3 mmol/L (3.5-5.1)
[2017-05-10] MEDS: OCULAR LUBRICANT 3.5 GM OPH OINT BOTH EYES SCH ×4 (09:00→21:36)
[2017-05-10] MEDS: CHLORHEXIDINE GLUCONATE 15 ML UD CUP MM SCH ×2 (09:35→21:31)
[2017-05-10] MEDS: HYDROCORTISONE 20 MG TAB GTB SCH (09:35)
[2017-05-10] MEDS: DESMOPRESSIN 0.1 MG TAB GTB SCH (09:35)
[2017-05-10] MEDS: ASCORBIC ACID 250 MG TAB GTB SCH ×2 (09:37→21:31)
[2017-05-10] MEDS: FERROUS SULFATE 60 MG/ML 5ML CUP GTB SCH ×2 (09:37→21:31)
[2017-05-10] MEDS: COLLAGENASE 30 GM TUBE TOP SCH (09:38)
[2017-05-10] MEDS: L ACIDOPHIL/B LACTIS/B LONGUM CAPSULE PEG SCH (09:38)
[2017-05-10] MEDS: FAMOTIDINE 20 MG TAB GTB SCH ×2 (09:38→21:31)
[2017-05-10] MEDS: ENOXAPARIN 60 MG/0.6 ML SYG SC SCH ×2 (10:04→21:33)
--- NOTE | 2017-05-10 12:11 | CONS ---
Date/Time of Note Date/Time of Note DATE: 05/10/17 TIME: 12:05 Assessment/Plan Assessment/Plan Chief Complaint/Hosp Course assessment/impression - recurrent fever - C diff colitis, recurrent (1st episode at [facility]) - septic shock due to pneumonia and UTI - UTI due to ESBL+E. coli. Took pip/tazo and then meropenem - b/l pneumonia due to klebsiella, EBL+E. coli. Took pip/tazo and then meropenem - severe herpes labialis - h/o disseminated coccidioides mycosis infection, meningitis. Cocci CF 1:16 on 04/26/2017 - s/p VPS placement - VDRF s/p tracheostomy - PEG dependet status - pancytopenia, due to septic shock on admission - thrombocytopenia due to sepsis, improving recommendations - pending results: blood cultures x2, urine culture - I ordered respiratory culture on 05/09/2017 but it has not been collected. I re -ordered it and personally endorsed Elaina, RT to collect it immediately - posaconazole trough level was sent on 05/07/2017 and the result is pending - continue meropenem (restart 05/09/2017-) - continue pGT vancomycin (05/07/2017) - continue IV acyclovir (05/07/2017-), it was changed from pGT to IV because herpes labialis progressed despite >7 days of pGT acyclovir - continue posaconazole to 400 mg q8hrs (posaconazole trough level 0.32 on 2016, the dose was increased on 04/29/2017 according to the advise from JOE Galeano at neurosurgery department at [facility] informing us that Pt's posaconazole level had been low at [facility]) - enteric contact precautions - management d/w Pt's mother and RT Problems: Consultation Date/Type/Reason Admit Date/Time Apr 25, 2017 at 12:31 Initial Consult Date 04/25/17 Type of Consultation: ID Referring Provider: HELEN CASTELLANO MD 24 HR Interval Summary Subjective hx not possible: pt non-verbal Exam/Review of Systems Vital Signs Vitals Vital Signs Date Time Temp Pulse Resp B/P Pulse Ox O2 Delivery O2 Flow Rate FiO2 05/10/17 11:23 103 18 97 30 05/10/17 11:19 99.5 135/92 Intake and Output 05/09/17 05/09/17 05/10/17 15:00 23:00 07:00 Intake Total 1950 ml Output Total 1600 ml Balance 350 ml Exam Constitutional: frail, non-verbal Psych: confusion Head: atraumatic, normocephalic Eyes: EOMI, nl lids ENMT: nl external ears & nose, other (eschar and ulcer of bilateral lips) Respiratory: crackles/rales Cardiovascular: other (tachycardic, regular) Gastrointestinal: non-tender, soft Musculoskeletal: nl extremities to inspection, nl gait and stance Extremities: normal pulses Neurological: lethargic Skin: nl turgor Results Result Diagram: 05/10/1751405/10/1715 Results 24 hrs Laboratory Tests Test 05/09/17 12:45 05/10/17 05:15 Urine Color YELLOW Urine Clarity SLIGHTLY CLOUDY A Urine pH 7.0 Urine Specific [place] 1.010 Urine Ketones NEGATIVE Urine Nitrite NEGATIVE Urine Bilirubin NEGATIVE Urine Urobilinogen NEGATIVE Urine Leukocyte Esterase NEGATIVE Urine Microscopic RBC 8 H Urine Microscopic WBC 4 Urine Squamous Epithelial Cells FEW Urine Hemoglobin NEGATIVE Urine Glucose NEGATIVE Urine Total Protein NEGATIVE White Blood Count 5.3 Red Blood Count 3.02 L Hemoglobin 9.0 L Hematocrit 27.7 L Mean Corpuscular Volume 91.7 Mean Corpuscular Hemoglobin 29.8 Mean Corpuscular Hemoglobin Concent 32.5 Red Cell Distribution Width 14.2 Platelet Count 316 Mean Platelet Volume 11.0 H Neutrophils % 69.0 Lymphocytes % 16.7 Monocytes % 10.4 Eosinophils % 1.5 Basophils % 1.5 Nucleated Red Blood Cells % 0.0 Neutrophils # 3.6 Lymphocytes # 0.9 Monocytes # 0.6 Eosinophils # 0.1 Basophils # 0.1 Nucleated Red Blood Cells # 0.0 Sodium Level 143 Potassium Level 3.3 L Chloride Level 106 Carbon Dioxide Level 30 Anion Gap 10 Blood Urea Nitrogen 6 L Creatinine 0.42 L Glucose Level 122 Calcium Level 9.8 Medications Medications Current Medications Acetaminophen (Tylenol Liquid) 650 mg Q4 PRN GTB PAIN AND OR ELEVATED TEMP Last administered on 05/05/17 13:23; Admin Dose 650 MG; Start 04/25/17 at 23:00 Eye Lubricant (Akwa Oint) 1 applic QID BOTH EYES Last administered on 22:23; Admin Dose 1 APPLIC; Start 04/26/17 at 09:00 Bromocriptine Mesylate (Parlodel) 30 mg DAILY GTB Last administered on 09:40; Admin Dose 30 MG; Start 04/26/17 at 09:00 Chlorhexidine Gluconate (Peridex) 15 ml BID MM Last administered on 05/10/17 09:35; Admin Dose 15 ML; Start 04/26/17 at 09:00 Ferrous Sulfate (Feosol Liquid Cup) 300 mg BID GTB Last administered on 09:37; Admin Dose 300 MG; Start 04/26/17 at 09:00 Hydrocortisone (Cortef) 20 mg DAILY GTB Last administered on 05/10/17 09:35; Admin Dose 20 MG; Start 04/26/17 at 09:00 Ondansetron HCl (Zofran Tab) 4 mg Q8 PRN GTB NAUSEA AND/OR VOMITING; Start at 23:00 Lactobacillus Acidophilus (Florajen3 Capsule) 1 each DAILY PEG Last administered on 05/10/17 09:38; Admin Dose 1 EACH; Start 04/26/17 at 09:00 Ascorbic Acid (Vitamin C) 250 mg BID GTB Last administered on 05/10/17 09:37; Admin Dose 250 MG; Start 04/26/17 at 09:00 Famotidine (Pepcid) 20 mg BID GTB Last administered on 05/10/17 09:38; Admin Dose 20 MG; Start 04/26/17 at 09:00 Morphine Sulfate (morphine) 2 mg Q4H PRN IV PAIN Last administered on 14:46; Admin Dose 2 MG; Start 04/26/17 at 16:30 Posaconazole (Noxafil) 400 mg Q8 PO Last administered on 05/10/17 05:52; Admin Dose 400 MG; Start 04/30/17 at 22:00 Ergocalciferol (Drisdol Liquid (Ped)) 50,000 units Q7D GTB Last administered on 05/09/17 09:47; Admin Dose 50,000 UNITS; Start 05/02/17 at 09:30 Enoxaparin Sodium (Lovenox) 50 mg Q12 SC Last administered on 05/10/17 10:04; Admin Dose 50 MG; Start 05/03/17 at 09:30 Diphenoxylate HCl/ Atropine (Lomotil Liquid Cup) 5 ml Q6H PRN PO DIARRHEA; Start 05/03/17 at 18:00 Collagenase 1 applic 1 applic DAILY TOP Last administered on 05/10/17 09:38; Admin Dose 1 APPLIC; Start 05/04/17 at 14:30 Potassium Chloride/Sodium Chloride (NS-KCl 20 Meq) 1,000 ml @ 80 mls/hr [id number] IV Last administered on 05/10/17 05:23; Admin Dose 80 MLS/HR; Start 05/06/17 at 11:30 Desmopressin Acetate 0.05 mg 0.05 mg DAILY GTB Last administered on 05/10/17 09:35; Admin Dose 0.05 MG; Start 05/07/17 at 09:00 Acyclovir/Sodium Chloride (Zovirax/NS) 100 ml @ 100 mls/hr Q8 IVPB Last administered on 05/10/17 05:52; Admin Dose 100 MLS/HR; Start 05/07/17 at 14:00 Vancomycin HCl 125 mg 125 mg Q6 GTB Last administered on 05/10/17 05:52; Admin Dose 125 MG; Start 05/08/17 at 15:00 Meropenem/Sodium Chloride (Merrem 1 Gm/50 ml (Pmx)) 50 ml @ 100 mls/hr Q8 IVPB Last administered on 05/10/17 05:23; Admin Dose 100 MLS/HR; Start 05/09/17 at 14:00 ELENI EVANS M.D. May 10, 2017 12:11
[2017-05-10] MEDS: BROMOCRIPTINE 2.5 MG TAB GTB SCH (12:30)
--- NOTE | 2017-05-10 14:10 | PN ---
Date/Time of Note Date/Time of Note DATE: 05/10/17 TIME: 14:05 Assessment/Plan VTE Prophylaxis VTE Prophylaxis Intervention: SCD's Lines/Catheters IV C[facility]ter Type (from [facility]): PICC Line Central line still needed: Yes Urinary Cath still in place: Yes Reason Cath still needed: urinary retention Assessment/Plan Chief Complaint/Hosp Course Patient continues to have low-grade fever and diarrhea. Assessment/Plan - C. difficile colitis, continue vancomycin via G-tube - Septic shock due to bilateral pneumonia and UTI, resolving. Continue antibiotics per ID. Dr Brown is following in infection disease consultation. 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 Continue Lovenox. - Acute kidney injury, resolving. - Hypernatremia, resolved. Dr Sorensen is following in nephrology consultation. - Hypokalemia, continue k protocol. - Pancytopenia most likely secondary to sepsis - Dysphagia with PEG. Continue tube G-tube feeding - VDRF with tracheostomy - Hydrocephalus, status post WATER SKI ASSEMBLER shunt. - Polyuria, improving. Further recommendations based on clinical course. Plan of care discussed with Dr. Dozier Problems: Exam/Review of Systems Vital Signs Vitals Vital Signs Date Time Temp Pulse Resp B/P Pulse Ox O2 Delivery O2 Flow Rate FiO2 05/10/17 12:26 97 05/10/17 11:23 18 97 30 05/10/17 11:19 99.5 135/92 Intake and Output 05/09/17 05/09/17 05/10/17 15:00 23:00 07:00 Intake Total 1950 ml Output Total 1600 ml Balance 350 ml Exam Constitutional: non-verbal Neck: other (Tracheostomy), supple Respiratory: diminished breath sounds Cardiovascular: nl pulses Gastrointestinal: non-tender, other (G-tube), soft Extremities: normal pulses Neurological: lethargic Results Result Diagram: 05/10/1751405/10/1715 Results 24 hrs Laboratory Tests Test 05/10/17 05:15 White Blood Count 5.3 Red Blood Count 3.02 L Hemoglobin 9.0 L Hematocrit 27.7 L Mean Corpuscular Volume 91.7 Mean Corpuscular Hemoglobin 29.8 Mean Corpuscular Hemoglobin Concent 32.5 Red Cell Distribution Width 14.2 Platelet Count 316 Mean Platelet Volume 11.0 H Neutrophils % 69.0 Lymphocytes % 16.7 Monocytes % 10.4 Eosinophils % 1.5 Basophils % 1.5 Nucleated Red Blood Cells % 0.0 Neutrophils # 3.6 Lymphocytes # 0.9 Monocytes # 0.6 Eosinophils # 0.1 Basophils # 0.1 Nucleated Red Blood Cells # 0.0 Sodium Level 143 Potassium Level 3.3 L Chloride Level 106 Carbon Dioxide Level 30 Anion Gap 10 Blood Urea Nitrogen 6 L Creatinine 0.42 L Glucose Level 122 Calcium Level 9.8 Medications Medications Current Medications Acetaminophen (Tylenol Liquid) 650 mg Q4 PRN GTB PAIN AND OR ELEVATED TEMP Last administered on 05/05/17 13:23; Admin Dose 650 MG; Start 04/25/17 at 23:00 Eye Lubricant (Akwa Oint) 1 applic QID BOTH EYES Last administered on 12:31; Admin Dose 1 APPLIC; Start 04/26/17 at 09:00 Bromocriptine Mesylate (Parlodel) 30 mg DAILY GTB Last administered on 12:30; Admin Dose 30 MG; Start 04/26/17 at 09:00 Chlorhexidine Gluconate (Peridex) 15 ml BID MM Last administered on 05/10/17 09:35; Admin Dose 15 ML; Start 04/26/17 at 09:00 Ferrous Sulfate (Feosol Liquid Cup) 300 mg BID GTB Last administered on 09:37; Admin Dose 300 MG; Start 04/26/17 at 09:00 Hydrocortisone (Cortef) 20 mg DAILY GTB Last administered on 05/10/17 09:35; Admin Dose 20 MG; Start 04/26/17 at 09:00 Ondansetron HCl (Zofran Tab) 4 mg Q8 PRN GTB NAUSEA AND/OR VOMITING; Start at 23:00 Lactobacillus Acidophilus (Florajen3 Capsule) 1 each DAILY PEG Last administered on 05/10/17 09:38; Admin Dose 1 EACH; Start 04/26/17 at 09:00 Ascorbic Acid (Vitamin C) 250 mg BID GTB Last administered on 05/10/17 09:37; Admin Dose 250 MG; Start 04/26/17 at 09:00 Famotidine (Pepcid) 20 mg BID GTB Last administered on 05/10/17 09:38; Admin Dose 20 MG; Start 04/26/17 at 09:00 Morphine Sulfate (morphine) 2 mg Q4H PRN IV PAIN Last administered on 14:46; Admin Dose 2 MG; Start 04/26/17 at 16:30 Posaconazole (Noxafil) 400 mg Q8 PO Last administered on 05/10/17 05:52; Admin Dose 400 MG; Start 04/30/17 at 22:00 Ergocalciferol (Drisdol Liquid (Ped)) 50,000 units Q7D GTB Last administered on 05/09/17 09:47; Admin Dose 50,000 UNITS; Start 05/02/17 at 09:30 Enoxaparin Sodium (Lovenox) 50 mg Q12 SC Last administered on 05/10/17 10:04; Admin Dose 50 MG; Start 05/03/17 at 09:30 Diphenoxylate HCl/ Atropine (Lomotil Liquid Cup) 5 ml Q6H PRN PO DIARRHEA; Start 05/03/17 at 18:00 Collagenase 1 applic 1 applic DAILY TOP Last administered on 05/10/17 09:38; Admin Dose 1 APPLIC; Start 05/04/17 at 14:30 Potassium Chloride/Sodium Chloride (NS-KCl 20 Meq) 1,000 ml @ 80 mls/hr [id number] IV Last administered on 05/10/17 05:23; Admin Dose 80 MLS/HR; Start 05/06/17 at 11:30 Desmopressin Acetate 0.05 mg 0.05 mg DAILY GTB Last administered on 05/10/17 09:35; Admin Dose 0.05 MG; Start 05/07/17 at 09:00 Acyclovir/Sodium Chloride (Zovirax/NS) 100 ml @ 100 mls/hr Q8 IVPB Last administered on 05/10/17 05:52; Admin Dose 100 MLS/HR; Start 05/07/17 at 14:00 Vancomycin HCl 125 mg 125 mg Q6 GTB Last administered on 05/10/17 12:29; Admin Dose 125 MG; Start 05/08/17 at 15:00 Meropenem/Sodium Chloride (Merrem 1 Gm/50 ml (Pmx)) 50 ml @ 100 mls/hr Q8 IVPB Last administered on 05/10/17t 05:23; Admin Dose 100 MLS/HR; Start 05/09/17 at 14:00 MANDIE DAVE May 10, 2017 14:09
--- NOTE | 2017-05-10 14:23 | CONS ---
Date/Time of Note Date/Time of Note DATE: 05/10/17 TIME: 14:21 Assessment/Plan Assessment/Plan Additional Assessment/Plan Ventilator setting; AC of 16, tidal volume 400, PEEP of 5, 30% FiO2. Assessment and recommendations; 1. Patient admitted with bilateral pneumonia with significant radiological improvement. Off antimicrobials treatment. 2. History of disseminated coccidiodomycosis pneumonia maintained on chronic antifungal regimen. 3. Chronic respiratory failure with persistent vegetative state. Continue current treatment. Patient awaiting discharge. Consultation Date/Type/Reason Admit Date/Time Apr 25, 2017 at 12:31 Initial Consult Date 04/25/17 Type of Consultation: Pulmonary Referring Provider: HELEN CASTELLANO MD 24 HR Interval Summary Free Text/Dictation Patient's condition remains stable. Remains in persistent vegetative state. Has remained hemodynamically stable. General exam; young male, on ventilator via tracheostomy, unresponsive, currently in no distress. Exam/Review of Systems Vital Signs Vitals Vital Signs Date Time Temp Pulse Resp B/P Pulse Ox O2 Delivery O2 Flow Rate FiO2 05/10/17 13:55 106 18 99 30 05/10/17 11:19 99.5 135/92 Intake and Output 05/09/17 05/09/17 05/10/17 15:00 23:00 07:00 Intake Total 1950 ml Output Total 1600 ml Balance 350 ml Exam HEENT exam; supple neck, no JVD. No lymphadenopathy. Midline trachea. No thyromegaly. Patient has fair dentition. Tracheostomy in place. Chest exam; clear to auscultation. S1-S2 audible, no murmurs. Regular rhythm. Abdomen exam; soft, no organomegaly. G-tube in place. Bowel sounds audible. Extremity exam; no peripheral edema. 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 Results Result Diagram: 05/10/17 0515 05/10/17 0515 Results 24 hrs Laboratory Tests Test 05/10/17 05:15 White Blood Count 5.3 Red Blood Count 3.02 L Hemoglobin 9.0 L Hematocrit 27.7 L Mean Corpuscular Volume 91.7 Mean Corpuscular Hemoglobin 29.8 Mean Corpuscular Hemoglobin Concent 32.5 Red Cell Distribution Width 14.2 Platelet Count 316 Mean Platelet Volume 11.0 H Neutrophils % 69.0 Lymphocytes % 16.7 Monocytes % 10.4 Eosinophils % 1.5 Basophils % 1.5 Nucleated Red Blood Cells % 0.0 Neutrophils # 3.6 Lymphocytes # 0.9 Monocytes # 0.6 Eosinophils # 0.1 Basophils # 0.1 Nucleated Red Blood Cells # 0.0 Sodium Level 143 Potassium Level 3.3 L Chloride Level 106 Carbon Dioxide Level 30 Anion Gap 10 Blood Urea Nitrogen 6 L Creatinine 0.42 L Glucose Level 122 Calcium Level 9.8 Medications Medications Current Medications Acetaminophen (Tylenol Liquid) 650 mg Q4 PRN GTB PAIN AND OR ELEVATED TEMP Last administered on 05/05/17 13:23; Admin Dose 650 MG; Start 04/25/17 at 23:00 Eye Lubricant (Akwa Oint) 1 applic QID BOTH EYES Last administered on 12:31; Admin Dose 1 APPLIC; Start 04/26/17 at 09:00 Bromocriptine Mesylate (Parlodel) 30 mg DAILY GTB Last administered on 12:30; Admin Dose 30 MG; Start 04/26/17 at 09:00 Chlorhexidine Gluconate (Peridex) 15 ml BID MM Last administered on 05/10/17 09:35; Admin Dose 15 ML; Start 04/26/17 at 09:00 Ferrous Sulfate (Feosol Liquid Cup) 300 mg BID GTB Last administered on 09:37; Admin Dose 300 MG; Start 04/26/17 at 09:00 Hydrocortisone (Cortef) 20 mg DAILY GTB Last administered on 05/10/17 09:35; Admin Dose 20 MG; Start 04/26/17 at 09:00 Ondansetron HCl (Zofran Tab) 4 mg Q8 PRN GTB NAUSEA AND/OR VOMITING; Start at 23:00 Lactobacillus Acidophilus (Florajen3 Capsule) 1 each DAILY PEG Last administered on 05/10/17 09:38; Admin Dose 1 EACH; Start 04/26/17 at 09:00 Ascorbic Acid (Vitamin C) 250 mg BID GTB Last administered on 05/10/17 09:37; Admin Dose 250 MG; Start 04/26/17 at 09:00 Famotidine (Pepcid) 20 mg BID GTB Last administered on 05/10/17 09:38; Admin Dose 20 MG; Start 04/26/17 at 09:00 Morphine Sulfate (morphine) 2 mg Q4H PRN IV PAIN Last administered on 14:46; Admin Dose 2 MG; Start 04/26/17 at 16:30 Posaconazole (Noxafil) 400 mg Q8 PO Last administered on 05/10/17 05:52; Admin Dose 400 MG; Start 04/30/17 at 22:00 Ergocalciferol (Drisdol Liquid (Ped)) 50,000 units Q7D GTB Last administered on 05/09/17 09:47; Admin Dose 50,000 UNITS; Start 05/02/17 at 09:30 Enoxaparin Sodium (Lovenox) 50 mg Q12 SC Last administered on 05/10/17 10:04; Admin Dose 50 MG; Start 05/03/17 at 09:30 Diphenoxylate HCl/ Atropine (Lomotil Liquid Cup) 5 ml Q6H PRN PO DIARRHEA; Start 05/03/17 at 18:00 Collagenase 1 applic 1 applic DAILY TOP Last administered on 05/10/17 09:38; Admin Dose 1 APPLIC; Start 05/04/17 at 14:30 Potassium Chloride/Sodium Chloride (NS-KCl 20 Meq) 1,000 ml @ 80 mls/hr [id number] IV Last administered on 05/10/17 05:23; Admin Dose 80 MLS/HR; Start 05/06/17 at 11:30 Desmopressin Acetate 0.05 mg 0.05 mg DAILY GTB Last administered on 05/10/17 09:35; Admin Dose 0.05 MG; Start 05/07/17 at 09:00 Acyclovir/Sodium Chloride (Zovirax/NS) 100 ml @ 100 mls/hr Q8 IVPB Last administered on 05/10/17 14:18; Admin Dose 100 MLS/HR; Start 05/07/17 at 14:00 Vancomycin HCl 125 mg 125 mg Q6 GTB Last administered on 05/10/17 12:29; Admin Dose 125 MG; Start 05/08/17 at 15:00 Meropenem/Sodium Chloride (Merrem 1 Gm/50 ml (Pmx)) 50 ml @ 100 mls/hr Q8 IVPB Last administered on 05/10/17 05:23; Admin Dose 100 MLS/HR; Start 05/09/17 at 14:00 Potassium Chloride (Potassium Chloride Pwd/Soln) 40 meq ONCE ONCE GTB ; Start 05/10/17 at 14:30; Stop 05/10/17 at 14:31 CHITO WALLS May 10, 2017 14:23
[2017-05-10] MEDS ORDERED: POTASSIUM CHLORIDE 20 MEQ POWDER FOR ORAL SOLN GTB ONE (14:30)
--- NOTE | 2017-05-10 17:10 | CONS ---
Date/Time of Note Date/Time of Note DATE: 05/10/17 TIME: 17:10 Assessment/Plan Assessment/Plan Additional Assessment/Plan 1. Non Oliguric Acute kidney injury due to septic shock -Improved 2. Hypernaremia- resolved 3. Septic shock on levophed - Resolved 4. Acute on chronic resp failure s/p Tracheostomy- on ventilator, pulmonary has been following 5. H/o Fungal meningitis, currently comatose 6. 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 Plan: Na improved to 143- continue DDAVP to 0.05 daily , KCl 20mEQ IV x 1 extra dose in addition to IVF KCL , continue NS with KCL at current rate ID, pulmonary has been following , on IV meropenem and IV acyclovir will follow up Consultation Date/Type/Reason Admit Date/Time Apr 25, 2017 at 12:31 Initial Consult Date 04/25/17 Type of Consultation: NEPHROLOGY Referring Provider: HELEN CASTELLANO MD 24 HR Interval Summary Free Text/Dictation Cr normal <K low Exam/Review of Systems Vital Signs Vitals Vital Signs Date Time Temp Pulse Resp B/P Pulse Ox O2 Delivery O2 Flow Rate FiO2 05/10/17 16:32 93 05/10/17 15:54 98.5 18 125/76 95 05/10/17 15:10 30 Intake and Output 05/09/17 05/09/17 05/10/17 15:00 23:00 07:00 Intake Total 1950 ml Output Total 1600 ml Balance 350 ml Results Result Diagram: 05/10/17 0515 05/10/17 0515 Results 24 hrs Laboratory Tests Test 05/10/17 05:15 White Blood Count 5.3 Red Blood Count 3.02 L Hemoglobin 9.0 L Hematocrit 27.7 L Mean Corpuscular Volume 91.7 Mean Corpuscular Hemoglobin 29.8 Mean Corpuscular Hemoglobin Concent 32.5 Red Cell Distribution Width 14.2 Platelet Count 316 Mean Platelet Volume 11.0 H Neutrophils % 69.0 Lymphocytes % 16.7 Monocytes % 10.4 Eosinophils % 1.5 Basophils % 1.5 Nucleated Red Blood Cells % 0.0 Neutrophils # 3.6 Lymphocytes # 0.9 Monocytes # 0.6 Eosinophils # 0.1 Basophils # 0.1 Nucleated Red Blood Cells # 0.0 Sodium Level 143 Potassium Level 3.3 L Chloride Level 106 Carbon Dioxide Level 30 Anion Gap 10 Blood Urea Nitrogen 6 L Creatinine 0.42 L Glucose Level 122 Calcium Level 9.8 Medications Medications Current Medications Acetaminophen (Tylenol Liquid) 650 mg Q4 PRN GTB PAIN AND OR ELEVATED TEMP Last administered on 05/05/17 13:23; Admin Dose 650 MG; Start 04/25/17 at 23:00 Eye Lubricant (Akwa Oint) 1 applic QID BOTH EYES Last administered on 17:06; Admin Dose 1 APPLIC; Start 04/26/17 at 09:00 Bromocriptine Mesylate (Parlodel) 30 mg DAILY GTB Last administered on 12:30; Admin Dose 30 MG; Start 04/26/17 at 09:00 Chlorhexidine Gluconate (Peridex) 15 ml BID MM Last administered on 05/10/17 09:35; Admin Dose 15 ML; Start 04/26/17 at 09:00 Ferrous Sulfate (Feosol Liquid Cup) 300 mg BID GTB Last administered on 09:37; Admin Dose 300 MG; Start 04/26/17 at 09:00 Hydrocortisone (Cortef) 20 mg DAILY GTB Last administered on 05/10/17 09:35; Admin Dose 20 MG; Start 04/26/17 at 09:00 Ondansetron HCl (Zofran Tab) 4 mg Q8 PRN GTB NAUSEA AND/OR VOMITING; Start at 23:00 Lactobacillus Acidophilus (Florajen3 Capsule) 1 each DAILY PEG Last administered on 05/10/17 09:38; Admin Dose 1 EACH; Start 04/26/17 at 09:00 Ascorbic Acid (Vitamin C) 250 mg BID GTB Last administered on 05/10/17 09:37; Admin Dose 250 MG; Start 04/26/17 at 09:00 Famotidine (Pepcid) 20 mg BID GTB Last administered on 05/10/17 09:38; Admin Dose 20 MG; Start 04/26/17 at 09:00 Morphine Sulfate (morphine) 2 mg Q4H PRN IV PAIN Last administered on 14:46; Admin Dose 2 MG; Start 04/26/17 at 16:30 Posaconazole (Noxafil) 400 mg Q8 PO Last administered on 05/10/17 05:52; Admin Dose 400 MG; Start 04/30/17 at 22:00 Ergocalciferol (Drisdol Liquid (Ped)) 50,000 units Q7D GTB Last administered on 05/09/17 09:47; Admin Dose 50,000 UNITS; Start 05/02/17 at 09:30 Enoxaparin Sodium (Lovenox) 50 mg Q12 SC Last administered on 05/10/17 10:04; Admin Dose 50 MG; Start 05/03/17 at 09:30 Diphenoxylate HCl/ Atropine (Lomotil Liquid Cup) 5 ml Q6H PRN PO DIARRHEA; Start 05/03/17 at 18:00 Collagenase (Santyl) 1 applic DAILY TOP Last administered on 05/10/17 09:38; Admin Dose 1 APPLIC; Start 05/04/17 at 14:30 Desmopressin Acetate 0.05 mg 0.05 mg DAILY GTB Last administered on 05/10/17 09:35; Admin Dose 0.05 MG; Start 05/07/17 at 09:00 Acyclovir/Sodium Chloride (Zovirax/NS) 100 ml @ 100 mls/hr Q8 IVPB Last administered on 05/10/17 14:18; Admin Dose 100 MLS/HR; Start 05/07/17 at 14:00 Vancomycin HCl 125 mg 125 mg Q6 GTB Last administered on 05/10/17 17:06; Admin Dose 125 MG; Start 05/08/17 at 15:00 Meropenem/Sodium Chloride (Merrem 1 Gm/50 ml (Pmx)) 50 ml @ 100 mls/hr Q8 IVPB Last administered on 05/10/17 15:37; Admin Dose 100 MLS/HR; Start 05/09/17 at 14:00 FARHAT RUBIO MD May 10, 2017 17:10
[2017-05-10] MEDS ORDERED: POTASSIUM CHLORIDE 20 MEQ in SOD CHLORIDE 0.9% 100 ML IVPB ONE (17:30)
--- NOTE | 2017-05-10 21:31 | PN ---
Date/Time of Note Date/Time of Note DATE: 05/10/17 TIME: 21:30 Assessment/Plan VTE Prophylaxis VTE Prophylaxis Intervention: SCD's Lines/Catheters IV Catheter Type (from Nrsg): PICC Line Central line still needed: No Urinary Cath still in place: Yes Reason Cath still needed: urinary retention Assessment/Plan Assessment/Plan Septic shock off IV pressor Disseminated coccidiomycosis Pneumonia UTI Vent dependent respiratory failure Encephalopathy DVT -Blood pressure trend overall stable. Patient with DVT on anticoagulation. Fluids and electrolyte management as per our nephrology colleagues. No new cardiac orders at the current time Subjective 24 Hr Interval Summary Free Text/Dictation the aptient with no cahnge Exam/Review of Systems Vital Signs Vitals Vital Signs Date Time Temp Pulse Resp B/P Pulse Ox O2 Delivery O2 Flow Rate FiO2 05/10/17 21:23 90 19 97 30 05/10/17 20:56 98.5 119/74 Intake and Output 05/09/17 05/09/17 05/10/17 15:00 23:00 07:00 Intake Total 1950 ml Output Total 1600 ml Balance 350 ml Results Result Diagram: 05/10/17 0515 05/10/17 0515 Results 24 hrs Laboratory Tests Test 05/10/17 05:15 White Blood Count 5.3 Red Blood Count 3.02 L Hemoglobin 9.0 L Hematocrit 27.7 L Mean Corpuscular Volume 91.7 Mean Corpuscular Hemoglobin 29.8 Mean Corpuscular Hemoglobin Concent 32.5 Red Cell Distribution Width 14.2 Platelet Count 316 Mean Platelet Volume 11.0 H Neutrophils % 69.0 Lymphocytes % 16.7 Monocytes % 10.4 Eosinophils % 1.5 Basophils % 1.5 Nucleated Red Blood Cells % 0.0 Neutrophils # 3.6 Lymphocytes # 0.9 Monocytes # 0.6 Eosinophils # 0.1 Basophils # 0.1 Nucleated Red Blood Cells # 0.0 Sodium Level 143 Potassium Level 3.3 L Chloride Level 106 Carbon Dioxide Level 30 Anion Gap 10 Blood Urea Nitrogen 6 L Creatinine 0.42 L Glucose Level 122 Calcium Level 9.8 Medications Medications Current Medications Acetaminophen (Tylenol Liquid) 650 mg Q4 PRN GTB PAIN AND OR ELEVATED TEMP Last administered on 05/05/17t 13:23; Admin Dose 650 MG; Start 04/25/17 at 23:00 Eye Lubricant (Akwa Oint) 1 applic QID BOTH EYES Last administered on 17:06; Admin Dose 1 APPLIC; Start 04/26/17 at 09:00 Bromocriptine Mesylate (Parlodel) 30 mg DAILY GTB Last administered on 12:30; Admin Dose 30 MG; Start 04/26/17 at 09:00 Chlorhexidine Gluconate (Peridex) 15 ml BID MM Last administered on 05/10/17 09:35; Admin Dose 15 ML; Start 04/26/17 at 09:00 Ferrous Sulfate (Feosol Liquid Cup) 300 mg BID GTB Last administered on 09:37; Admin Dose 300 MG; Start 04/26/17 at 09:00 Hydrocortisone (Cortef) 20 mg DAILY GTB Last administered on 05/10/17 09:35; Admin Dose 20 MG; Start 04/26/17 at 09:00 Ondansetron HCl (Zofran Tab) 4 mg Q8 PRN GTB NAUSEA AND/OR VOMITING; Start at 23:00 Lactobacillus Acidophilus (Florajen3 Capsule) 1 each DAILY PEG Last administered on 05/10/17 09:38; Admin Dose 1 EACH; Start 04/26/17 at 09:00 Ascorbic Acid (Vitamin C) 250 mg BID GTB Last administered on 05/10/17 09:37; Admin Dose 250 MG; Start 04/26/17 at 09:00 Famotidine (Pepcid) 20 mg BID GTB Last administered on 05/10/17 09:38; Admin Dose 20 MG; Start 04/26/17 at 09:00 Morphine Sulfate (morphine) 2 mg Q4H PRN IV PAIN Last administered on 14:46; Admin Dose 2 MG; Start 04/26/17 at 16:30 Posaconazole (Noxafil) 400 mg Q8 PO Last administered on 05/10/17 05:52; Admin Dose 400 MG; Start 04/30/17 at 22:00 Ergocalciferol (Drisdol Liquid (Ped)) 50,000 units Q7D GTB Last administered on 05/09/17 09:47; Admin Dose 50,000 UNITS; Start 05/02/17 at 09:30 Enoxaparin Sodium (Lovenox) 50 mg Q12 SC Last administered on 05/10/17 10:04; Admin Dose 50 MG; Start 05/03/17 at 09:30 Diphenoxylate HCl/ Atropine (Lomotil Liquid Cup) 5 ml Q6H PRN PO DIARRHEA; Start 05/03/17 at 18:00 Collagenase (Santyl) 1 applic DAILY TOP Last administered on 05/10/17 09:38; Admin Dose 1 APPLIC; Start 05/04/17 at 14:30 Desmopressin Acetate 0.05 mg 0.05 mg DAILY GTB Last administered on 05/10/17 09:35; Admin Dose 0.05 MG; Start 05/07/17 at 09:00 Acyclovir/Sodium Chloride (Zovirax/NS) 100 ml @ 100 mls/hr Q8 IVPB Last administered on 05/10/17 14:18; Admin Dose 100 MLS/HR; Start 05/07/17 at 14:00 Vancomycin HCl 125 mg 125 mg Q6 GTB Last administered on 05/10/17 17:06; Admin Dose 125 MG; Start 05/08/17 at 15:00 Meropenem/Sodium Chloride (Merrem 1 Gm/50 ml (Pmx)) 50 ml @ 100 mls/hr Q8 IVPB Last administered on 05/10/17 15:37; Admin Dose 100 MLS/HR; Start 05/09/17 at 14:00 ORI SESAY MD May 10, 2017 21:31
[2017-05-11] VITALS (22 sets, daily range): BP systolic 115–129; BP diastolic 72–80; PULSE 58–119; RESP 16–23
[2017-05-11] MEDS: VANCOMYCIN HCL 250 MG/5ML POSYG GTB SCH ×5 (00:08→23:48)
[2017-05-11] MEDS: MEROPENEM 1 GM/50ML(PMX) 50 ML IVPB SCH ×3 (05:38→22:11)
[2017-05-11] MEDS: POSACONAZOLE PO SCH ×3 (05:39→21:58)
[2017-05-11] MEDS: ACYCLOVIR 500 MG in SOD CHLORIDE 0.9% 100 ML IVPB SCH ×3 (06:14→23:07)
[2017-05-11 09:35] LABS: BASOPHIL # 0.1 10^3/ul (0.0-0.1); BASOPHILS % 1.3 % (0.0-2.0); EOSINOPHILS # 0.1 10^3/ul (0.0-0.5); HEMOGLOBIN 9.3 g/dl (14.0-18.0); LYMPHOCYTES # 0.7 10^3/ul (0.8-2.9); LYMPHOCYTES % 10.2 % (15.0-51.0); MEAN CORPUSCULAR HEMOGLOBIN 29.1 pg (29.0-33.0); MEAN CORPUSCULAR HGB CONC 32.1 g/dl (32.0-37.0); MEAN CORPUSCULAR VOLUME 90.6 fl (82.0-101.0); MEAN PLATELET VOLUME 11.2 fl (7.4-10.4); MONOCYTE # 0.7 10^3/ul (0.3-0.9); MONOCYTES % 10.5 % (0.0-11.0); NEUTROPHIL # 5.4 10^3/ul (1.6-7.5); NEUTROPHILS % 76.4 % (39.0-77.0); PLATELET COUNT 333 10^3/UL (140-415); RED CELL DISTRIBUTION WIDTH 13.6 % (11.5-14.5); WHITE BLOOD COUNT 7.1 10^3/ul (4.8-10.8)
[2017-05-11] MEDS: BROMOCRIPTINE 2.5 MG TAB GTB SCH (09:37)
[2017-05-11] MEDS: CHLORHEXIDINE GLUCONATE 15 ML UD CUP MM SCH ×2 (09:37→21:57)
[2017-05-11] MEDS: L ACIDOPHIL/B LACTIS/B LONGUM CAPSULE PEG SCH (09:38)
[2017-05-11] MEDS: FAMOTIDINE 20 MG TAB GTB SCH ×2 (09:38→21:56)
[2017-05-11] MEDS: FERROUS SULFATE 60 MG/ML 5ML CUP GTB SCH ×2 (09:38→21:56)
[2017-05-11] MEDS: ASCORBIC ACID 250 MG TAB GTB SCH ×2 (09:38→21:57)
[2017-05-11] MEDS: HYDROCORTISONE 20 MG TAB GTB SCH (09:38)
[2017-05-11] MEDS: DESMOPRESSIN 0.1 MG TAB GTB SCH (09:38)
[2017-05-11] MEDS: COLLAGENASE 30 GM TUBE TOP SCH (09:39)
[2017-05-11] MEDS: OCULAR LUBRICANT 3.5 GM OPH OINT BOTH EYES SCH ×4 (09:47→21:56)
[2017-05-11] MEDS: ENOXAPARIN 60 MG/0.6 ML SYG SC SCH ×2 (09:47→22:08)
[2017-05-11 09:56] LABS: CREATININE 0.42 mg/dl (0.61-1.24); POTASSIUM 3.2 mmol/L (3.5-5.1)
[2017-05-11] MEDS: ACETAMINOPHEN 650MG/20.3ML CUP GTB PRN (12:44)
--- NOTE | 2017-05-11 14:51 | CONS ---
Date/Time of Note Date/Time of Note DATE: 05/11/17 TIME: 14:49 Assessment/Plan Assessment/Plan Additional Assessment/Plan Ventilator setting; AC of 16, tidal volume 400, PEEP of 5, 40% FiO2. Assessment and recommendations; 1. Patient admitted with gram-negative sepsis currently on appropriate antibiotic regimen. 2. 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 3. History of hydrocephalus, status post LIFE INSURANCE AGENT shunt placement. 4. Patient in a persistent vegetative state. 5. Central diabetes insipidus, maintained on desmopressin. Continue current supportive care. Consider discharge. Consultation Date/Type/Reason Admit Date/Time Apr 25, 2017 at 12:31 Initial Consult Date 04/25/17 Type of Consultation: Pulmonary Referring Provider: HELEN CASTELLANO MD 24 HR Interval Summary Free Text/Dictation Patient's condition remains stable. Remains in persistent vegetative state and chronically ventilator dependent. General exam; young male, on ventilator via tracheostomy, unresponsive, currently in no distress. Exam/Review of Systems Vital Signs Vitals Vital Signs Date Time Temp Pulse Resp B/P Pulse Ox O2 Delivery O2 Flow Rate FiO2 05/11/17 12:47 101.4 05/11/17 12:10 30 05/11/17 12:00 114 05/11/17 11:20 16 92 05/11/17 04:14 129/79 Intake and Output 05/10/17 05/10/17 05/11/17 15:00 23:00 07:00 Intake Total 1150 ml 1210 ml Output Total 2700 ml 2300 ml Balance -1550 ml -1090 ml Exam HEENT exam; supple neck, no JVD. No lymphadenopathy. Midline trachea. No thyromegaly. There is a LIFE INSURANCE AGENT shunt involving the right parietal area. Tracheostomy placed. Patient has fair dentition. Chest exam; diminished but clear breath sound. S1-S2 audible, no murmurs. Regular rhythm. Abdomen exam; soft, G-tube in place. Bowel sounds audible. Extremity exam; no peripheral edema. CISSP exam; patient remains in a persistent vegetative state. Results Result Diagram: 05/11/17 0813 05/11/17 0813 Results 24 hrs Laboratory Tests Test 05/11/17 08:13 White Blood Count 7.1 # Red Blood Count 3.20 L Hemoglobin 9.3 L Hematocrit 29.0 L Mean Corpuscular Volume 90.6 Mean Corpuscular Hemoglobin 29.1 Mean Corpuscular Hemoglobin Concent 32.1 Red Cell Distribution Width 13.6 Platelet Count 333 Mean Platelet Volume 11.2 H Neutrophils % 76.4 Lymphocytes % 10.2 L Monocytes % 10.5 Eosinophils % 1.0 Basophils % 1.3 Nucleated Red Blood Cells % 0.0 Neutrophils # 5.4 Lymphocytes # 0.7 L Monocytes # 0.7 Eosinophils # 0.1 Basophils # 0.1 Nucleated Red Blood Cells # 0.0 Sodium Level 137 Potassium Level 3.2 L Chloride Level 100 Carbon Dioxide Level 33 H Anion Gap 7 L Blood Urea Nitrogen 7 Creatinine 0.42 L Glucose Level 125 Calcium Level 10.0 Medications Medications Current Medications Acetaminophen (Tylenol Liquid) 650 mg Q4 PRN GTB PAIN AND OR ELEVATED TEMP Last administered on 05/11/17 12:44; Admin Dose 650 MG; Start 04/25/17 at 23: 00 Eye Lubricant (Akwa Oint) 1 applic QID BOTH EYES Last administered on 12:44; Admin Dose 1 APPLIC; Start 04/26/17 at 09:00 Bromocriptine Mesylate (Parlodel) 30 mg DAILY GTB Last administered on 09:37; Admin Dose 30 MG; Start 04/26/17 at 09:00 Chlorhexidine Gluconate (Peridex) 15 ml BID MM Last administered on 05/11/17 09:37; Admin Dose 15 ML; Start 04/26/17 at 09:00 Ferrous Sulfate (Feosol Liquid Cup) 300 mg BID GTB Last administered on 09:38; Admin Dose 300 MG; Start 04/26/17 at 09:00 Hydrocortisone (Cortef) 20 mg DAILY GTB Last administered on 05/11/17 09:38; Admin Dose 20 MG; Start 04/26/17 at 09:00 Ondansetron HCl (Zofran Tab) 4 mg Q8 PRN GTB NAUSEA AND/OR VOMITING; Start at 23:00 Lactobacillus Acidophilus (Florajen3 Capsule) 1 each DAILY PEG Last administered on 05/11/17 09:38; Admin Dose 1 EACH; Start 04/26/17 at 09:00 Ascorbic Acid (Vitamin C) 250 mg BID GTB Last administered on 05/11/17 09:38 ; Admin Dose 250 MG; Start 04/26/17 at 09:00 Famotidine (Pepcid) 20 mg BID GTB Last administered on 05/11/17 09:38; Admin Dose 20 MG; Start 04/26/17 at 09:00 Morphine Sulfate (morphine) 2 mg Q4H PRN IV PAIN Last administered on 14:46; Admin Dose 2 MG; Start 04/26/17 at 16:30 Posaconazole (Noxafil) 400 mg Q8 PO Last administered on 05/11/17 14:14; Admin Dose 400 MG; Start 04/30/17 at 22:00 Ergocalciferol (Drisdol Liquid (Ped)) 50,000 units Q7D GTB Last administered on 05/09/17 09:47; Admin Dose 50,000 UNITS; Start 05/02/17 at 09:30 Enoxaparin Sodium (Lovenox) 50 mg Q12 SC Last administered on 05/11/17 09:47 ; Admin Dose 50 MG; Start 05/03/17 at 09:30 Diphenoxylate HCl/ Atropine (Lomotil Liquid Cup) 5 ml Q6H PRN PO DIARRHEA; Start 05/03/17 at 18:00 Collagenase (Santyl) 1 applic DAILY TOP Last administered on 05/11/17 09:39; Admin Dose 1 APPLIC; Start 05/04/17 at 14:30 Desmopressin Acetate 0.05 mg 0.05 mg DAILY GTB Last administered on 05/11/17 09:38; Admin Dose 0.05 MG; Start 05/07/17 at 09:00 Acyclovir/Sodium Chloride (Zovirax/NS) 100 ml @ 100 mls/hr Q8 IVPB Last administered on 05/11/17 14:14; Admin Dose 100 MLS/HR; Start 05/07/17 at 14:00 Vancomycin HCl 125 mg 125 mg Q6 GTB Last administered on 05/11/17 12:44; Admin Dose 125 MG; Start 05/08/17 at 15:00 Meropenem/Sodium Chloride (Merrem 1 Gm/50 ml (Pmx)) 50 ml @ 100 mls/hr Q8 IVPB Last administered on 10/10/17at 14:14; Admin Dose 100 MLS/HR; Start 05/09/17 at 14:00 CHITO WALLS May 11, 2017 14:51
--- NOTE | 2017-05-11 17:06 | PN ---
Date/Time of Note Date/Time of Note DATE: 05/11/17 TIME: 17:04 Assessment/Plan VTE Prophylaxis VTE Prophylaxis Intervention: SCD's Lines/Catheters [facility] P[facility] Line Central line still needed: Yes Urinary Cath still in place: Yes Reason Cath still needed: urinary retention Assessment/Plan Chief Complaint/Hosp Course Patient spiked a fever, remains tachycardic. Assessment/Plan - C. difficile colitis, continue vancomycin via G-tube - Septic shock due to bilateral pneumonia and UTI, resolving. Continue antibiotics per ID. Dr Brown is following in infection disease consultation. 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 Continue Lovenox. - Acute kidney injury, resolving. - Hypernatremia, resolved. Dr Sorensen is following in nephrology consultation. - Hypokalemia, continue k protocol. - Pancytopenia most likely secondary to sepsis - Dysphagia with PEG. Continue tube G-tube feeding - VDRF with tracheostomy - Hydrocephalus, status post JUNIOR LEGAL SECRETARY shunt. - Polyuria, improving. Further recommendations based on clinical course. Plan of care discussed with Dr. Dozier Problems: Exam/Review of Systems Vital Signs Vitals Vital Signs Date Time Temp Pulse Resp B/P Pulse Ox O2 Delivery O2 Flow Rate FiO2 05/11/17 16:38 30 05/11/17 12:47 101.4 05/11/17 12:00 114 05/11/17 11:20 16 92 05/11/17 04:14 129/79 Intake and Output 05/10/17 05/10/17 05/11/17 15:00 23:00 07:00 Intake Total 1150 ml 1210 ml Output Total 2700 ml 2300 ml Balance -1550 ml -1090 ml Exam Constitutional: non-verbal Neck: other (Tracheostomy), supple Respiratory: diminished breath sounds Cardiovascular: nl pulses Gastrointestinal: non-tender, other (G-tube), soft Extremities: normal pulses Neurological: lethargic Results Result Diagram: 05/11/17 0813 05/11/17 0813 Results 24 hrs Laboratory Tests Test 05/11/17 08:13 White Blood Count 7.1 # Red Blood Count 3.20 L Hemoglobin 9.3 L Hematocrit 29.0 L Mean Corpuscular Volume 90.6 Mean Corpuscular Hemoglobin 29.1 Mean Corpuscular Hemoglobin Concent 32.1 Red Cell Distribution Width 13.6 Platelet Count 333 Mean Platelet Volume 11.2 H Neutrophils % 76.4 Lymphocytes % 10.2 L Monocytes % 10.5 Eosinophils % 1.0 Basophils % 1.3 Nucleated Red Blood Cells % 0.0 Neutrophils # 5.4 Lymphocytes # 0.7 L Monocytes # 0.7 Eosinophils # 0.1 Basophils # 0.1 Nucleated Red Blood Cells # 0.0 Sodium Level 137 Potassium Level 3.2 L Chloride Level 100 Carbon Dioxide Level 33 H Anion Gap 7 L Blood Urea Nitrogen 7 Creatinine 0.42 L Glucose Level 125 Calcium Level 10.0 Medications Medications Current Medications Acetaminophen (Tylenol Liquid) 650 mg Q4 PRN GTB PAIN AND OR ELEVATED TEMP Last administered on 05/11/17 12:44; Admin Dose 650 MG; Start 04/25/17 at 23: 00 Eye Lubricant (Akwa Oint) 1 applic QID BOTH EYES Last administered on 16:16; Admin Dose 1 APPLIC; Start 04/26/17 at 09:00 Bromocriptine Mesylate (Parlodel) 30 mg DAILY GTB Last administered on 09:37; Admin Dose 30 MG; Start 04/26/17 at 09:00 Chlorhexidine Gluconate (Peridex) 15 ml BID MM Last administered on 05/11/17 09:37; Admin Dose 15 ML; Start 04/26/17 at 09:00 Ferrous Sulfate (Feosol Liquid Cup) 300 mg BID GTB Last administered on 09:38; Admin Dose 300 MG; Start 04/26/17 at 09:00 Hydrocortisone (Cortef) 20 mg DAILY GTB Last administered on 05/11/17 09:38; Admin Dose 20 MG; Start 04/26/17 at 09:00 Ondansetron HCl (Zofran Tab) 4 mg Q8 PRN GTB NAUSEA AND/OR VOMITING; Start at 23:00 Lactobacillus Acidophilus (Florajen3 Capsule) 1 each DAILY PEG Last administered on 05/11/17 09:38; Admin Dose 1 EACH; Start 04/26/17 at 09:00 Ascorbic Acid (Vitamin C) 250 mg BID GTB Last administered on 05/11/17 09:38 ; Admin Dose 250 MG; Start 04/26/17 at 09:00 Famotidine (Pepcid) 20 mg BID GTB Last administered on 05/11/17 09:38; Admin Dose 20 MG; Start 04/26/17 at 09:00 Morphine Sulfate (morphine) 2 mg Q4H PRN IV PAIN Last administered on 14:46; Admin Dose 2 MG; Start 04/26/17 at 16:30 Posaconazole (Noxafil) 400 mg Q8 PO Last administered on 05/11/17 14:14; Admin Dose 400 MG; Start 04/30/17 at 22:00 Ergocalciferol (Drisdol Liquid (Ped)) 50,000 units Q7D GTB Last administered on 05/09/17 09:47; Admin Dose 50,000 UNITS; Start 05/02/17 at 09:30 Enoxaparin Sodium (Lovenox) 50 mg Q12 SC Last administered on 05/11/17 09:47 ; Admin Dose 50 MG; Start 05/03/17 at 09:30 Diphenoxylate HCl/ Atropine (Lomotil Liquid Cup) 5 ml Q6H PRN PO DIARRHEA; Start 05/03/17 at 18:00 Collagenase (Santyl) 1 applic DAILY TOP Last administered on 05/11/17 09:39; Admin Dose 1 APPLIC; Start 05/04/17 at 14:30 Desmopressin Acetate 0.05 mg 0.05 mg DAILY GTB Last administered on 05/11/17 09:38; Admin Dose 0.05 MG; Start 05/07/17 at 09:00 Acyclovir/Sodium Chloride (Zovirax/NS) 100 ml @ 100 mls/hr Q8 IVPB Last administered on 05/11/17 14:14; Admin Dose 100 MLS/HR; Start 05/07/17 at 14:00 Vancomycin HCl 125 mg 125 mg Q6 GTB Last administered on 05/11/17 12:44; Admin Dose 125 MG; Start 05/08/17 at 15:00 Meropenem/Sodium Chloride (Merrem 1 Gm/50 ml (Pmx)) 50 ml @ 100 mls/hr Q8 IVPB Last administered on 05/11/17 14:14; Admin Dose 100 MLS/HR; Start 05/09/17 at 14:00 MANDIE DAVE May 11, 2017 17:06
--- NOTE | 2017-05-11 17:39 | CONS ---
Date/Time of Note Date/Time of Note DATE: 05/11/17 TIME: 17:38 Assessment/Plan Assessment/Plan Additional Assessment/Plan 1. Non Oliguric Acute kidney injury due to septic shock -Improved 2. Hypernaremia- resolved 3. Septic shock on levophed - Resolved 4. Acute on chronic resp failure s/p Tracheostomy- on ventilator, pulmonary has been following 5. H/o Fungal meningitis, currently comatose 6. H/O Right sided HOME CARE LIAISON shunt 7. 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 Plan: Na 137 with DDAVP to 0.05 daily , KCl 20mEQ IV x 1 extra dose in addition to IVF KCL , continue NS with KCL at current rate ID, pulmonary has been following , on IV meropenem and IV acyclovir will follow up Consultation Date/Type/Reason Admit Date/Time Apr 25, 2017 at 12:31 Initial Consult Date 04/25/17 Type of Consultation: NEPHROLOGY Referring Provider: HELEN CASTELLANO MD 24 HR Interval Summary Free Text/Dictation K 3.2, on IV abx meropenem and acyclovir Exam/Review of Systems Vital Signs Vitals Vital Signs Date Time Temp Pulse Resp B/P Pulse Ox O2 Delivery O2 Flow Rate FiO2 05/11/17 16:38 30 05/11/17 16:00 108 05/11/17 12:47 101.4 05/11/17 11:20 16 92 05/11/17 04:14 129/79 Intake and Output 05/10/17 05/10/17 05/11/17 14:59 22:59 06:59 Intake Total 1150 ml 1210 ml Output Total 2700 ml 2300 ml Balance -1550 ml -1090 ml Exam Constitutional: non-verbal Neck: other (Tracheostomy), supple Respiratory: diminished breath sounds Cardiovascular: nl pulses Gastrointestinal: non-tender, other (G-tube), soft Extremities: normal pulses Results Result Diagram: 05/11/17 0813 05/11/17 0813 Results 24 hrs Laboratory Tests Test 05/11/17 08:13 White Blood Count 7.1 # Red Blood Count 3.20 L Hemoglobin 9.3 L Hematocrit 29.0 L Mean Corpuscular Volume 90.6 Mean Corpuscular Hemoglobin 29.1 Mean Corpuscular Hemoglobin Concent 32.1 Red Cell Distribution Width 13.6 Platelet Count 333 Mean Platelet Volume 11.2 H Neutrophils % 76.4 Lymphocytes % 10.2 L Monocytes % 10.5 Eosinophils % 1.0 Basophils % 1.3 Nucleated Red Blood Cells % 0.0 Neutrophils # 5.4 Lymphocytes # 0.7 L Monocytes # 0.7 Eosinophils # 0.1 Basophils # 0.1 Nucleated Red Blood Cells # 0.0 Sodium Level 137 Potassium Level 3.2 L Chloride Level 100 Carbon Dioxide Level 33 H Anion Gap 7 L Blood Urea Nitrogen 7 Creatinine 0.42 L Glucose Level 125 Calcium Level 10.0 Medications Medications Current Medications Acetaminophen (Tylenol Liquid) 650 mg Q4 PRN GTB PAIN AND OR ELEVATED TEMP Last administered on 05/11/17 12:44; Admin Dose 650 MG; Start 04/25/17 at 23: 00 Eye Lubricant (Akwa Oint) 1 applic QID BOTH EYES Last administered on 16:16; Admin Dose 1 APPLIC; Start 04/26/17 at 09:00 Bromocriptine Mesylate (Parlodel) 30 mg DAILY GTB Last administered on 09:37; Admin Dose 30 MG; Start 04/26/17 at 09:00 Chlorhexidine Gluconate (Peridex) 15 ml BID MM Last administered on 05/11/17 09:37; Admin Dose 15 ML; Start 04/26/17 at 09:00 Ferrous Sulfate (Feosol Liquid Cup) 300 mg BID GTB Last administered on 09:38; Admin Dose 300 MG; Start 04/26/17 at 09:00 Hydrocortisone (Cortef) 20 mg DAILY GTB Last administered on 05/11/17 09:38; Admin Dose 20 MG; Start 04/26/17 at 09:00 Ondansetron HCl (Zofran Tab) 4 mg Q8 PRN GTB NAUSEA AND/OR VOMITING; Start at 23:00 Lactobacillus Acidophilus (Florajen3 Capsule) 1 each DAILY PEG Last administered on 05/11/17 09:38; Admin Dose 1 EACH; Start 04/26/17 at 09:00 Ascorbic Acid (Vitamin C) 250 mg BID GTB Last administered on 05/11/17 09:38 ; Admin Dose 250 MG; Start 04/26/17 at 09:00 Famotidine (Pepcid) 20 mg BID GTB Last administered on 05/11/17 09:38; Admin Dose 20 MG; Start 04/26/17 at 09:00 Morphine Sulfate (morphine) 2 mg Q4H PRN IV PAIN Last administered on 14:46; Admin Dose 2 MG; Start 04/26/17 at 16:30 Posaconazole (Noxafil) 400 mg Q8 PO Last administered on 05/11/17 14:14; Admin Dose 400 MG; Start 04/30/17 at 22:00 Ergocalciferol (Drisdol Liquid (Ped)) 50,000 units Q7D GTB Last administered on 05/09/17 09:47; Admin Dose 50,000 UNITS; Start 05/02/17 at 09:30 Enoxaparin Sodium (Lovenox) 50 mg Q12 SC Last administered on 05/11/17 09:47 ; Admin Dose 50 MG; Start 05/03/17 at 09:30 Diphenoxylate HCl/ Atropine (Lomotil Liquid Cup) 5 ml Q6H PRN PO DIARRHEA; Start 05/03/17 at 18:00 Collagenase (Santyl) 1 applic DAILY TOP Last administered on 05/11/17 09:39; Admin Dose 1 APPLIC; Start 05/04/17 at 14:30 Desmopressin Acetate 0.05 mg 0.05 mg DAILY GTB Last administered on 05/11/17 09:38; Admin Dose 0.05 MG; Start 05/07/17 at 09:00 Acyclovir/Sodium Chloride (Zovirax/NS) 100 ml @ 100 mls/hr Q8 IVPB Last administered on 05/11/17 14:14; Admin Dose 100 MLS/HR; Start 05/07/17 at 14:00 Vancomycin HCl 125 mg 125 mg Q6 GTB Last administered on 05/11/17 12:44; Admin Dose 125 MG; Start 05/08/17 at 15:00 Meropenem/Sodium Chloride (Merrem 1 Gm/50 ml (Pmx)) 50 ml @ 100 mls/hr Q8 IVPB Last administered on 05/11/17 14:14; Admin Dose 100 MLS/HR; Start 10/8/17 at 14:00 FARHAT RUBIO MD May 11, 2017 17:39
--- NOTE | 2017-05-11 17:48 | CONS ---
Date/Time of Note Date/Time of Note DATE: 05/11/17 TIME: 17:46 Assessment/Plan Assessment/Plan Chief Complaint/Hosp Course assessment/impression - recurrent fever - C diff colitis, recurrent (1st episode at [facility]) - septic shock due to pneumonia and UTI - UTI due to ESBL+E. coli. Took pip/tazo and then meropenem - b/l pneumonia due to klebsiella, EBL+E. coli. Took pip/tazo and then meropenem - severe herpes labialis - h/o disseminated coccidioides mycosis infection, meningitis. Cocci CF 1:16 on 04/26/2017 - s/p VPS placement - VDRF s/p tracheostomy - PEG dependet status - pancytopenia, due to septic shock on admission - thrombocytopenia due to sepsis, improving recommendations - pending results: blood cultures x2, urine culture, resp culture - repeat blood cultures x2 today - posaconazole trough level was sent on 05/07/2017 and the result is pending - consider d/c PICC and place a new catheter in light of intermittent fever spike - start empiric IV vancomycin - continue meropenem (restart 05/09/2017-) - continue pGT vancomycin (05/07/2017) - continue IV acyclovir (05/07/2017-), it was changed from pGT to IV because herpes labialis progressed despite >7 days of pGT acyclovir - continue posaconazole to 400 mg q8hrs (posaconazole trough level 0.32 on 2016, the dose was increased on 04/29/2017 according to the advise from JOE Galeano at neurosurgery department at [facility] informing us that Pt's posaconazole level had been low at [facility]) - enteric contact precautions - management d/w Pt's RN Problems: Consultation Date/Type/Reason Admit Date/Time Apr 25, 2017 at 12:31 Initial Consult Date 04/25/17 Type of Consultation: ID Referring Provider: HELEN CASTELLANO MD 24 HR Interval Summary Subjective hx not possible: pt non-verbal Exam/Review of Systems Vital Signs Vitals Vital Signs Date Time Temp Pulse Resp B/P Pulse Ox O2 Delivery O2 Flow Rate FiO2 05/11/17 16:38 30 05/11/17 16:00 108 05/11/17 12:47 101.4 05/11/17 11:20 16 92 05/11/17 04:14 129/79 Intake and Output 05/10/17 05/10/17 05/11/17 15:00 23:00 07:00 Intake Total 1150 ml 1210 ml Output Total 2700 ml 2300 ml Balance -1550 ml -1090 ml Exam Constitutional: frail, non-verbal Psych: confusion Head: other (s/p VPS placement) Eyes: nl conjunctiva ENMT: nl external ears & nose, nl nasal mucosa & septum, other (eschar and ulcer on the lower lip) Neck: other (trach) Respiratory: crackles/rales Cardiovascular: nl pulses, regular rate and rhythm Gastrointestinal: non-tender, other (GT), soft Genitourinary - Male: other (FC) Extremities: normal pulses, No edema Neurological: confused, lethargic Skin: nl turgor Results Result Diagram: 05/11/1781205/11/17 0813 Results 24 hrs Laboratory Tests Test 05/11/17 08:13 White Blood Count 7.1 # Red Blood Count 3.20 L Hemoglobin 9.3 L Hematocrit 29.0 L Mean Corpuscular Volume 90.6 Mean Corpuscular Hemoglobin 29.1 Mean Corpuscular Hemoglobin Concent 32.1 Red Cell Distribution Width 13.6 Platelet Count 333 Mean Platelet Volume 11.2 H Neutrophils % 76.4 Lymphocytes % 10.2 L Monocytes % 10.5 Eosinophils % 1.0 Basophils % 1.3 Nucleated Red Blood Cells % 0.0 Neutrophils # 5.4 Lymphocytes # 0.7 L Monocytes # 0.7 Eosinophils # 0.1 Basophils # 0.1 Nucleated Red Blood Cells # 0.0 Sodium Level 137 Potassium Level 3.2 L Chloride Level 100 Carbon Dioxide Level 33 H Anion Gap 7 L Blood Urea Nitrogen 7 Creatinine 0.42 L Glucose Level 125 Calcium Level 10.0 Medications Medications Current Medications Acetaminophen (Tylenol Liquid) 650 mg Q4 PRN GTB PAIN AND OR ELEVATED TEMP Last administered on 05/11/17 12:44; Admin Dose 650 MG; Start 04/25/17 at 23: 00 Eye Lubricant (Akwa Oint) 1 applic QID BOTH EYES Last administered on 16:16; Admin Dose 1 APPLIC; Start 04/26/17 at 09:00 Bromocriptine Mesylate (Parlodel) 30 mg DAILY GTB Last administered on 09:37; Admin Dose 30 MG; Start 04/26/17 at 09:00 Chlorhexidine Gluconate (Peridex) 15 ml BID MM Last administered on 05/11/17 09:37; Admin Dose 15 ML; Start 04/26/17 at 09:00 Ferrous Sulfate (Feosol Liquid Cup) 300 mg BID GTB Last administered on 09:38; Admin Dose 300 MG; Start 04/26/17 at 09:00 Hydrocortisone (Cortef) 20 mg DAILY GTB Last administered on 05/11/17 09:38; Admin Dose 20 MG; Start 04/26/17 at 09:00 Ondansetron HCl (Zofran Tab) 4 mg Q8 PRN GTB NAUSEA AND/OR VOMITING; Start at 23:00 Lactobacillus Acidophilus (Florajen3 Capsule) 1 each DAILY PEG Last administered on 05/11/17 09:38; Admin Dose 1 EACH; Start 04/26/17 at 09:00 Ascorbic Acid (Vitamin C) 250 mg BID GTB Last administered on 05/11/17 09:38 ; Admin Dose 250 MG; Start 04/26/17 at 09:00 Famotidine (Pepcid) 20 mg BID GTB Last administered on 05/11/17 09:38; Admin Dose 20 MG; Start 04/26/17 at 09:00 Morphine Sulfate (morphine) 2 mg Q4H PRN IV PAIN Last administered on 14:46; Admin Dose 2 MG; Start 04/26/17 at 16:30 Posaconazole (Noxafil) 400 mg Q8 PO Last administered on 05/11/17 14:14; Admin Dose 400 MG; Start 04/30/17 at 22:00 Ergocalciferol (Drisdol Liquid (Ped)) 50,000 units Q7D GTB Last administered on 05/09/17 09:47; Admin Dose 50,000 UNITS; Start 05/02/17 at 09:30 Enoxaparin Sodium (Lovenox) 50 mg Q12 SC Last administered on 05/11/17 09:47 ; Admin Dose 50 MG; Start 05/03/17 at 09:30 Diphenoxylate HCl/ Atropine (Lomotil Liquid Cup) 5 ml Q6H PRN PO DIARRHEA; Start 05/03/17 at 18:00 Collagenase (Santyl) 1 applic DAILY TOP Last administered on 05/11/17 09:39; Admin Dose 1 APPLIC; Start 05/04/17 at 14:30 Desmopressin Acetate 0.05 mg 0.05 mg DAILY GTB Last administered on 05/11/17 09:38; Admin Dose 0.05 MG; Start 05/07/17 at 09:00 Acyclovir/Sodium Chloride (Zovirax/NS) 100 ml @ 100 mls/hr Q8 IVPB Last administered on 05/11/17 14:14; Admin Dose 100 MLS/HR; Start 05/07/17 at 14:00 Vancomycin HCl 125 mg 125 mg Q6 GTB Last administered on 05/11/17 12:44; Admin Dose 125 MG; Start 05/08/17 at 15:00 Meropenem/Sodium Chloride (Merrem 1 Gm/50 ml (Pmx)) 50 ml @ 100 mls/hr Q8 IVPB Last administered on 05/11/17 14:14; Admin Dose 100 MLS/HR; Start 05/09/17 at 14:00 ELENI EVANS M.D. May 11, 2017 17:48
[2017-05-11] MEDS ORDERED: VANCOMYCIN IV PER PHARMACY XX SCH (18:00)
--- NOTE | 2017-05-11 18:14 | PN ---
Date/Time of Note Date/Time of Note DATE: 05/11/17 TIME: 18:12 Assessment/Plan VTE Prophylaxis VTE Prophylaxis Intervention: SCD's Lines/Catheters IV Catheter Type (from Nrs): PICC Line Central line still needed: No Urinary Cath still in place: Yes Reason Cath still needed: urinary retention Assessment/Plan Assessment/Plan Septic shock off IV pressor Disseminated coccidiomycosis Pneumonia UTI Vent dependent respiratory failure Encephalopathy DVT -Blood pressure trend overall stable. Patient with DVT on anticoagulation. Fluids and electrolyte management as per our nephrology colleagues. No new cardiac orders at the current time Subjective 24 Hr Interval Summary Free Text/Dictation the patient with no change Exam/Review of Systems Vital Signs Vitals Vital Signs Date Time Temp Pulse Resp B/P Pulse Ox O2 Delivery O2 Flow Rate FiO2 05/11/17 17:58 98.2 59 16 115/72 95 Mechanical Ventilator 05/11/17 17:10 30 Intake and Output 05/10/17 05/10/17 05/11/17 15:00 23:00 07:00 Intake Total 1150 ml 1210 ml Output Total 2700 ml 2300 ml Balance -1550 ml -1090 ml Results Result Diagram: 05/11/17 0813 05/11/17 0813 Results 24 hrs Laboratory Tests Test 05/11/17 08:13 White Blood Count 7.1 # Red Blood Count 3.20 L Hemoglobin 9.3 L Hematocrit 29.0 L Mean Corpuscular Volume 90.6 Mean Corpuscular Hemoglobin 29.1 Mean Corpuscular Hemoglobin Concent 32.1 Red Cell Distribution Width 13.6 Platelet Count 333 Mean Platelet Volume 11.2 H Neutrophils % 76.4 Lymphocytes % 10.2 L Monocytes % 10.5 Eosinophils % 1.0 Basophils % 1.3 Nucleated Red Blood Cells % 0.0 Neutrophils # 5.4 Lymphocytes # 0.7 L Monocytes # 0.7 Eosinophils # 0.1 Basophils # 0.1 Nucleated Red Blood Cells # 0.0 Sodium Level 137 Potassium Level 3.2 L Chloride Level 100 Carbon Dioxide Level 33 H Anion Gap 7 L Blood Urea Nitrogen 7 Creatinine 0.42 L Glucose Level 125 Calcium Level 10.0 Medications Medications Current Medications Acetaminophen (Tylenol Liquid) 650 mg Q4 PRN GTB PAIN AND OR ELEVATED TEMP Last administered on 05/11/17t 12:44; Admin Dose 650 MG; Start 04/25/17 at 23: 00 Eye Lubricant (Akwa Oint) 1 applic QID BOTH EYES Last administered on 16:16; Admin Dose 1 APPLIC; Start 04/26/17 at 09:00 Bromocriptine Mesylate (Parlodel) 30 mg DAILY GTB Last administered on 09:37; Admin Dose 30 MG; Start 04/26/17 at 09:00 Chlorhexidine Gluconate (Peridex) 15 ml BID MM Last administered on 05/11/17 09:37; Admin Dose 15 ML; Start 04/26/17 at 09:00 Ferrous Sulfate (Feosol Liquid Cup) 300 mg BID GTB Last administered on 09:38; Admin Dose 300 MG; Start 04/26/17 at 09:00 Hydrocortisone (Cortef) 20 mg DAILY GTB Last administered on 05/11/17 09:38; Admin Dose 20 MG; Start 04/26/17 at 09:00 Ondansetron HCl (Zofran Tab) 4 mg Q8 PRN GTB NAUSEA AND/OR VOMITING; Start at 23:00 Lactobacillus Acidophilus (Florajen3 Capsule) 1 each DAILY PEG Last administered on 05/11/17 09:38; Admin Dose 1 EACH; Start 04/26/17 at 09:00 Ascorbic Acid (Vitamin C) 250 mg BID GTB Last administered on 05/11/17 09:38 ; Admin Dose 250 MG; Start 04/26/17 at 09:00 Famotidine (Pepcid) 20 mg BID GTB Last administered on 05/11/17 09:38; Admin Dose 20 MG; Start 04/26/17 at 09:00 Morphine Sulfate (morphine) 2 mg Q4H PRN IV PAIN Last administered on 14:46; Admin Dose 2 MG; Start 04/26/17 at 16:30 Posaconazole (Noxafil) 400 mg Q8 PO Last administered on 05/11/17 14:14; Admin Dose 400 MG; Start 04/30/17 at 22:00 Ergocalciferol (Drisdol Liquid (Ped)) 50,000 units Q7D GTB Last administered on 05/09/17 09:47; Admin Dose 50,000 UNITS; Start 05/02/17 at 09:30 Enoxaparin Sodium (Lovenox) 50 mg Q12 SC Last administered on 05/11/17 09:47 ; Admin Dose 50 MG; Start 05/03/17 at 09:30 Diphenoxylate HCl/ Atropine (Lomotil Liquid Cup) 5 ml Q6H PRN PO DIARRHEA; Start 05/03/17 at 18:00 Collagenase (Santyl) 1 applic DAILY TOP Last administered on 05/11/17 09:39; Admin Dose 1 APPLIC; Start 05/04/17 at 14:30 Desmopressin Acetate 0.05 mg 0.05 mg DAILY GTB Last administered on 05/11/17 09:38; Admin Dose 0.05 MG; Start 05/07/17 at 09:00 Acyclovir/Sodium Chloride (Zovirax/NS) 100 ml @ 100 mls/hr Q8 IVPB Last administered on 05/11/17 14:14; Admin Dose 100 MLS/HR; Start 05/07/17 at 14:00 Vancomycin HCl 125 mg 125 mg Q6 GTB Last administered on 05/11/17 17:52; Admin Dose 125 MG; Start 05/08/17 at 15:00 Meropenem/Sodium Chloride 50 ml @ 100 mls/hr Q8 IVPB Last administered on 14:14; Admin Dose 100 MLS/HR; Start 05/09/17 at 14:00 Vancomycin HCl (Vancocin) 250 ml @ 125 mls/hr NOW IVPB ; Start 05/11/17 at 18: 30; Stop 05/11/17 at 22:00 ORI SESAY MD May 11, 2017 18:14
[2017-05-11] MEDS ORDERED: VANCOMYCIN 1 GM in NS 250 ML IVPB SCH (18:30)
[2017-05-12] VITALS (24 sets, daily range): BP systolic 101–130; BP diastolic 66–79; PULSE 80–120; RESP 16–66
[2017-05-12] MEDS ORDERED: VANCOMYCIN 750 MG in SOD CHLORIDE 0.9% 150 ML IVPB SCH (05:00)
[2017-05-12] MEDS: MEROPENEM 1 GM/50ML(PMX) 50 ML IVPB SCH ×3 (06:14→21:53)
[2017-05-12] MEDS: VANCOMYCIN HCL 250 MG/5ML POSYG GTB SCH ×4 (06:17→23:36)
[2017-05-12] MEDS: POSACONAZOLE PO SCH ×3 (06:17→22:40)
[2017-05-12] MEDS: ACYCLOVIR 500 MG in SOD CHLORIDE 0.9% 100 ML IVPB SCH ×3 (06:50→21:56)
--- NOTE | 2017-05-12 08:44 | PN ---
Date/Time of Note Date/Time of Note DATE: 05/12/17 TIME: 08:43 Assessment/Plan VTE Prophylaxis VTE Prophylaxis Intervention: SCD's Lines/Catheters IV Catheter Type (from Nrs): PICC Line Central line still needed: No Urinary Cath still in place: Yes Reason Cath still needed: urinary retention Assessment/Plan Assessment/Plan Septic shock off IV pressor Disseminated coccidiomycosis Pneumonia UTI Vent dependent respiratory failure Encephalopathy DVT -Blood pressure trend overall stable. Patient with DVT on anticoagulation. Fluids and electrolyte management as per our nephrology colleagues. No new cardiac orders at the current time Subjective 24 Hr Interval Summary Free Text/Dictation the patient with no cahnge Exam/Review of Systems Vital Signs Vitals Vital Signs Date Time Temp Pulse Resp B/P Pulse Ox O2 Delivery O2 Flow Rate FiO2 05/12/17 07:57 95 16 97 30 05/12/17 07:56 98.1 109/70 05/11/17 17:58 Mechanical Ventilator Intake and Output 05/11/17 05/11/17 05/12/17 15:00 23:00 07:00 Intake Total 900 ml 300 ml Output Total 800 ml Balance 100 ml 300 ml Results Result Diagram: 05/11/17 0813 05/11/17 0813 Medications Medications Current Medications Acetaminophen (Tylenol Liquid) 650 mg Q4 PRN GTB PAIN AND OR ELEVATED TEMP Last administered on 05/11/17 12:44; Admin Dose 650 MG; Start 04/25/17 at 23: 00 Eye Lubricant (Akwa Oint) 1 applic QID BOTH EYES Last administered on 21:56; Admin Dose 1 APPLIC; Start 04/26/17 at 09:00 Bromocriptine Mesylate (Parlodel) 30 mg DAILY GTB Last administered on 09:37; Admin Dose 30 MG; Start 04/26/17 at 09:00 Chlorhexidine Gluconate (Peridex) 15 ml BID MM Last administered on 05/11/17 21:57; Admin Dose 15 ML; Start 04/26/17 at 09:00 Ferrous Sulfate (Feosol Liquid Cup) 300 mg BID GTB Last administered on 21:56; Admin Dose 300 MG; Start 04/26/17 at 09:00 Hydrocortisone (Cortef) 20 mg DAILY GTB Last administered on 05/11/17 09:38; Admin Dose 20 MG; Start 04/26/17 at 09:00 Ondansetron HCl (Zofran Tab) 4 mg Q8 PRN GTB NAUSEA AND/OR VOMITING; Start at 23:00 Lactobacillus Acidophilus (Florajen3 Capsule) 1 each DAILY PEG Last administered on 05/11/17 09:38; Admin Dose 1 EACH; Start 04/26/17 at 09:00 Ascorbic Acid (Vitamin C) 250 mg BID GTB Last administered on 05/11/17 21:57 ; Admin Dose 250 MG; Start 04/26/17 at 09:00 Famotidine (Pepcid) 20 mg BID GTB Last administered on 05/11/17 21:56; Admin Dose 20 MG; Start 04/26/17 at 09:00 Morphine Sulfate (morphine) 2 mg Q4H PRN IV PAIN Last administered on 14:46; Admin Dose 2 MG; Start 04/26/17 at 16:30 Posaconazole (Noxafil) 400 mg Q8 PO Last administered on 05/12/17 06:17; Admin Dose 400 MG; Start 04/30/17 at 22:00 Ergocalciferol (Drisdol Liquid (Ped)) 50,000 units Q7D GTB Last administered on 05/09/17 09:47; Admin Dose 50,000 UNITS; Start 05/02/17 at 09:30 Enoxaparin Sodium (Lovenox) 50 mg Q12 SC Last administered on 05/11/17 22:08 ; Admin Dose 50 MG; Start 05/03/17 at 09:30 Diphenoxylate HCl/ Atropine (Lomotil Liquid Cup) 5 ml Q6H PRN PO DIARRHEA; Start 05/03/17 at 18:00 Collagenase (Santyl) 1 applic DAILY TOP Last administered on 05/11/17 09:39; Admin Dose 1 APPLIC; Start 05/04/17 at 14:30 Desmopressin Acetate 0.05 mg 0.05 mg DAILY GTB Last administered on 05/11/17 09:38; Admin Dose 0.05 MG; Start 05/07/17 at 09:00 Acyclovir/Sodium Chloride (Zovirax/NS) 100 ml @ 100 mls/hr Q8 IVPB Last administered on 05/12/17 06:50; Admin Dose 100 MLS/HR; Start 05/07/17 at 14:00 Vancomycin HCl 125 mg 125 mg Q6 GTB Last administered on 05/12/17 06:17; Admin Dose 125 MG; Start 05/08/17 at 15:00 Meropenem/Sodium Chloride 50 ml @ 100 mls/hr Q8 IVPB Last administered on 06:14; Admin Dose 100 MLS/HR; Start 05/09/17 at 14:00 Vancomycin HCl/ Sodium Chloride (Vancocin/NS) 150 ml @ 75 mls/hr Q8H IVPB Last administered on 05/12/17 06:50; Admin Dose 75 MLS/HR; Start 05/12/17 at 05:00 ORI SESAY MD May 12, 2017 08:44
[2017-05-12] MEDS: COLLAGENASE 30 GM TUBE TOP SCH (08:46)
[2017-05-12] MEDS: OCULAR LUBRICANT 3.5 GM OPH OINT BOTH EYES SCH ×4 (09:08→21:51)
[2017-05-12] MEDS: CHLORHEXIDINE GLUCONATE 15 ML UD CUP MM SCH ×2 (09:08→21:51)
[2017-05-12] MEDS: FERROUS SULFATE 60 MG/ML 5ML CUP GTB SCH ×2 (09:29→21:52)
[2017-05-12] MEDS: BROMOCRIPTINE 2.5 MG TAB GTB SCH (09:29)
[2017-05-12] MEDS: FAMOTIDINE 20 MG TAB GTB SCH ×2 (09:30→21:52)
[2017-05-12] MEDS: ASCORBIC ACID 250 MG TAB GTB SCH ×2 (09:30→22:40)
[2017-05-12] MEDS: HYDROCORTISONE 20 MG TAB GTB SCH (09:30)
[2017-05-12] MEDS: ENOXAPARIN 60 MG/0.6 ML SYG SC SCH ×2 (09:33→21:00)
[2017-05-12] MEDS: DESMOPRESSIN 0.1 MG TAB GTB SCH (09:37)
[2017-05-12] MEDS: L ACIDOPHIL/B LACTIS/B LONGUM CAPSULE PEG SCH (09:37)
--- NOTE | 2017-05-12 10:30 | CONS ---
Date/Time of Note Date/Time of Note DATE: 05/12/17 TIME: 10:28 Assessment/Plan Assessment/Plan Chief Complaint/Hosp Course assessment/impression - recurrent fever - C diff colitis, recurrent (1st episode at [facility]) - septic shock due to pneumonia and UTI - UTI due to ESBL+E. coli. Took pip/tazo and then meropenem - b/l pneumonia due to klebsiella, EBL+E. coli. Took pip/tazo and then meropenem - severe herpes labialis - h/o disseminated coccidioides mycosis infection, meningitis. Cocci CF 1:16 on 04/26/2017 - s/p VPS placement - VDRF s/p tracheostomy - PEG dependet status - pancytopenia, due to septic shock on admission - thrombocytopenia due to sepsis, improving recommendations - pending results: blood cultures x2, urine culture, resp culture - posaconazole trough level was sent on 05/07/2017 and the result is pending - consider d/c PICC and place a new catheter in light of intermittent fever spike - continue empiric IV vancomycin (05/12/2017-) - continue meropenem (restart 05/09/2017-) - continue pGT vancomycin (05/07/2017) - continue IV acyclovir (05/07/2017-), it was changed from pGT to IV because herpes labialis progressed despite >7 days of pGT acyclovir - continue posaconazole to 400 mg q8hrs (posaconazole trough level 0.32 on 2016, the dose was increased on 04/29/2017 according to the advise from JOE Galeano at neurosurgery department at [facility] informing us that Pt's posaconazole level had been low at [facility]) - enteric contact precautions Problems: Consultation Date/Type/Reason Admit Date/Time Apr 25, 2017 at 12:31 Initial Consult Date 04/25/17 Type of Consultation: ID Referring Provider: HELEN CASTELLANO MD 24 HR Interval Summary Subjective hx not possible: pt non-verbal Exam/Review of Systems Vital Signs Vitals Vital Signs Date Time Temp Pulse Resp B/P Pulse Ox O2 Delivery O2 Flow Rate FiO2 05/12/17 09:19 101 16 98 30 05/12/17 07:56 98.1 109/70 05/11/17 17:58 Mechanical Ventilator Intake and Output 05/11/17 05/11/17 05/12/17 15:00 23:00 07:00 Intake Total 900 ml 300 ml Output Total 800 ml Balance 100 ml 300 ml Exam Constitutional: frail, non-verbal Psych: confusion Head: other (s/p VPS placement) Eyes: nl lids, nl sclera ENMT: other (eschar and ulcer of lower lip) Neck: other (tach) Respiratory: crackles/rales Cardiovascular: nl pulses, regular rate and rhythm Gastrointestinal: non-tender, other (GT), soft Genitourinary - Male: other (FC) Musculoskeletal: nl extremities to inspection Extremities: No edema Neurological: confused Results Result Diagram: 05/11/1781205/11/17812 Medications Medications Current Medications Acetaminophen (Tylenol Liquid) 650 mg Q4 PRN GTB PAIN AND OR ELEVATED TEMP Last administered on 05/11/17 12:44; Admin Dose 650 MG; Start 04/25/17 at 23: 00 Eye Lubricant (Akwa Oint) 1 applic QID BOTH EYES Last administered on 09:08; Admin Dose 1 APPLIC; Start 04/26/17 at 09:00 Bromocriptine Mesylate (Parlodel) 30 mg DAILY GTB Last administered on 09:29; Admin Dose 30 MG; Start 04/26/17 at 09:00 Chlorhexidine Gluconate (Peridex) 15 ml BID MM Last administered on 05/12/17 09:08; Admin Dose 15 ML; Start 04/26/17 at 09:00 Ferrous Sulfate (Feosol Liquid Cup) 300 mg BID GTB Last administered on 09:29; Admin Dose 300 MG; Start 04/26/17 at 09:00 Hydrocortisone (Cortef) 20 mg DAILY GTB Last administered on 05/12/17 09:30; Admin Dose 20 MG; Start 04/26/17 at 09:00 Ondansetron HCl (Zofran Tab) 4 mg Q8 PRN GTB NAUSEA AND/OR VOMITING; Start at 23:00 Lactobacillus Acidophilus (Florajen3 Capsule) 1 each DAILY PEG Last administered on 05/12/17 09:37; Admin Dose 1 EACH; Start 04/26/17 at 09:00 Ascorbic Acid (Vitamin C) 250 mg BID GTB Last administered on 05/12/17 09:30 ; Admin Dose 250 MG; Start 04/26/17 at 09:00 Famotidine (Pepcid) 20 mg BID GTB Last administered on 05/12/17 09:30; Admin Dose 20 MG; Start 04/26/17 at 09:00 Morphine Sulfate (morphine) 2 mg Q4H PRN IV PAIN Last administered on 14:46; Admin Dose 2 MG; Start 04/26/17 at 16:30 Posaconazole (Noxafil) 400 mg Q8 PO Last administered on 05/12/17 06:17; Admin Dose 400 MG; Start 04/30/17 at 22:00 Ergocalciferol (Drisdol Liquid (Ped)) 50,000 units Q7D GTB Last administered on 05/09/17 09:47; Admin Dose 50,000 UNITS; Start 05/02/17 at 09:30 Enoxaparin Sodium (Lovenox) 50 mg Q12 SC Last administered on 05/12/17 09:33 ; Admin Dose 50 MG; Start 05/03/17 at 09:30 Diphenoxylate HCl/ Atropine (Lomotil Liquid Cup) 5 ml Q6H PRN PO DIARRHEA; Start 05/03/17 at 18:00 Collagenase (Santyl) 1 applic DAILY TOP Last administered on 05/11/17 09:39; Admin Dose 1 APPLIC; Start 05/04/17 at 14:30 Desmopressin Acetate 0.05 mg 0.05 mg DAILY GTB Last administered on 05/12/17 09:37; Admin Dose 0.05 MG; Start 05/07/17 at 09:00 Acyclovir/Sodium Chloride (Zovirax/NS) 100 ml @ 100 mls/hr Q8 IVPB Last administered on 05/12/17 06:50; Admin Dose 100 MLS/HR; Start 05/07/17 at 14:00 Vancomycin HCl 125 mg 125 mg Q6 GTB Last administered on 05/12/17 06:17; Admin Dose 125 MG; Start 05/08/17 at 15:00 Meropenem/Sodium Chloride 50 ml @ 100 mls/hr Q8 IVPB Last administered on 06:14; Admin Dose 100 MLS/HR; Start 05/09/17 at 14:00 Vancomycin HCl/ Sodium Chloride (Vancocin/NS) 150 ml @ 75 mls/hr Q8H IVPB Last administered on 05/12/17t 06:50; Admin Dose 75 MLS/HR; Start 05/12/17 at 05:00 Potassium Chloride (Klor-Con 20) 20 meq BID PO ; Start 05/12/17 at 10:00 ELENI EVANS M.D. May 12, 2017 10:30
[2017-05-12 11:42] LABS: BASOPHIL # 0.1 10^3/ul (0.0-0.1); BASOPHILS % 1.6 % (0.0-2.0); EOSINOPHILS % 0.6 % (0.0-7.0); HEMATOCRIT 27.1 % (42.0-52.0); HEMOGLOBIN 8.9 g/dl (14.0-18.0); LYMPHOCYTES # 0.8 10^3/ul (0.8-2.9); LYMPHOCYTES % 13.5 % (15.0-51.0); MEAN CORPUSCULAR HEMOGLOBIN 29.5 pg (29.0-33.0); MEAN CORPUSCULAR HGB CONC 32.8 g/dl (32.0-37.0); MEAN CORPUSCULAR VOLUME 89.7 fl (82.0-101.0); MEAN PLATELET VOLUME 11.1 fl (7.4-10.4); MONOCYTE # 0.8 10^3/ul (0.3-0.9); MONOCYTES % 12.2 % (0.0-11.0); NEUTROPHIL # 4.4 10^3/ul (1.6-7.5); NEUTROPHILS % 71.5 % (39.0-77.0); PLATELET COUNT 286 10^3/UL (140-415); RED BLOOD COUNT 3.02 10^6/ul (4.70-6.10); RED CELL DISTRIBUTION WIDTH 13.5 % (11.5-14.5); WHITE BLOOD COUNT 6.2 10^3/ul (4.8-10.8)
[2017-05-12 12:02] LABS: CALCIUM 9.4 mg/dl (8.4-10.2); CREATININE 0.41 mg/dl (0.61-1.24)
[2017-05-12] MEDS: POTASSIUM CHLORIDE (SR) 20 MEQ TAB PO SCH ×2 (12:23→22:41)
--- NOTE | 2017-05-12 13:22 | PN ---
Date/Time of Note Date/Time of Note DATE: 05/12/17 TIME: 13:18 Assessment/Plan VTE Prophylaxis VTE Prophylaxis Intervention: SCD's Lines/Catheters IV Catheter Type (from [facility]): PICC Line Central line still needed: Yes Urinary Cath still in place: Yes Reason Cath still needed: urinary retention Assessment/Plan Chief Complaint/Hosp Course Patient continues to have low-grade fever, moderate amount of secretions from tracheostomy. Assessment/Plan - C. difficile colitis, continue vancomycin via G-tube - Septic shock due to bilateral pneumonia and UTI, resolving. Continue antibiotics per ID. Dr Brown is following in infection disease consultation. 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 Continue Lovenox. - Acute kidney injury, resolving. - Hypernatremia, resolved. Dr Sorensen is following in nephrology consultation. - Hypokalemia, continue k protocol. - Pancytopenia most likely secondary to sepsis - Dysphagia with PEG. Continue tube G-tube feeding - VDRF with tracheostomy - Hydrocephalus, status post LEAD DATA ENTRY OPERATOR shunt. - Polyuria, improving. Further recommendations based on clinical course. Plan of care discussed with Dr. Dozier Problems: Exam/Review of Systems Vital Signs Vitals Vital Signs Date Time Temp Pulse Resp B/P Pulse Ox O2 Delivery O2 Flow Rate FiO2 05/12/17 12:51 84 05/12/17 11:39 98.3 17 101/66 98 05/12/17 11:30 30 05/12/17 08:30 Mechanical Ventilator Intake and Output 05/11/17 05/11/17 05/12/17 15:00 23:00 07:00 Intake Total 900 ml 300 ml Output Total 800 ml Balance 100 ml 300 ml Exam Constitutional: non-verbal Neck: other (Tracheostomy), supple Respiratory: diminished breath sounds Cardiovascular: nl pulses Gastrointestinal: non-tender, other (G-tube), soft Extremities: normal pulses Neurological: lethargic Results Result Diagram: 05/12/17 1039 05/12/17 1039 Results 24 hrs Laboratory Tests Test 05/12/17 10:39 05/12/17 12:06 White Blood Count 6.2 Red Blood Count 3.02 L Hemoglobin 8.9 L Hematocrit 27.1 L Mean Corpuscular Volume 89.7 Mean Corpuscular Hemoglobin 29.5 Mean Corpuscular Hemoglobin Concent 32.8 Red Cell Distribution Width 13.5 Platelet Count 286 Mean Platelet Volume 11.1 H Neutrophils % 71.5 Lymphocytes % 13.5 L Monocytes % 12.2 H Eosinophils % 0.6 Basophils % 1.6 Nucleated Red Blood Cells % 0.0 Neutrophils # 4.4 Lymphocytes # 0.8 Monocytes # 0.8 Eosinophils # 0.0 Basophils # 0.1 Nucleated Red Blood Cells # 0.0 Sodium Level 136 Potassium Level 3.0 L Chloride Level 96 L Carbon Dioxide Level 33 H Anion Gap 10 Blood Urea Nitrogen 8 Creatinine 0.41 L Glucose Level 113 Calcium Level 9.4 Lab Scanned Report REFERENCE LAB Medications Medications Current Medications Acetaminophen (Tylenol Liquid) 650 mg Q4 PRN GTB PAIN AND OR ELEVATED TEMP Last administered on 05/11/17 12:44; Admin Dose 650 MG; Start 04/25/17 at 23: 00 Eye Lubricant (Akwa Oint) 1 applic QID BOTH EYES Last administered on 12:01; Admin Dose 1 APPLIC; Start 04/26/17 at 09:00 Bromocriptine Mesylate (Parlodel) 30 mg DAILY GTB Last administered on 09:29; Admin Dose 30 MG; Start 04/26/17 at 09:00 Chlorhexidine Gluconate (Peridex) 15 ml BID MM Last administered on 05/12/17 09:08; Admin Dose 15 ML; Start 04/26/17 at 09:00 Ferrous Sulfate (Feosol Liquid Cup) 300 mg BID GTB Last administered on 09:29; Admin Dose 300 MG; Start 04/26/17 at 09:00 Hydrocortisone (Cortef) 20 mg DAILY GTB Last administered on 05/12/17 09:30; Admin Dose 20 MG; Start 04/26/17 at 09:00 Ondansetron HCl (Zofran Tab) 4 mg Q8 PRN GTB NAUSEA AND/OR VOMITING; Start at 23:00 Lactobacillus Acidophilus (Florajen3 Capsule) 1 each DAILY PEG Last administered on 05/12/17 09:37; Admin Dose 1 EACH; Start 04/26/17 at 09:00 Ascorbic Acid (Vitamin C) 250 mg BID GTB Last administered on 05/12/17 09:30 ; Admin Dose 250 MG; Start 04/26/17 at 09:00 Famotidine (Pepcid) 20 mg BID GTB Last administered on 05/12/17 09:30; Admin Dose 20 MG; Start 04/26/17 at 09:00 Morphine Sulfate (morphine) 2 mg Q4H PRN IV PAIN Last administered on 14:46; Admin Dose 2 MG; Start 04/26/17 at 16:30 Posaconazole (Noxafil) 400 mg Q8 PO Last administered on 05/12/17 06:17; Admin Dose 400 MG; Start 04/30/17 at 22:00 Ergocalciferol (Drisdol Liquid (Ped)) 50,000 units Q7D GTB Last administered on 05/09/17 09:47; Admin Dose 50,000 UNITS; Start 05/02/17 at 09:30 Enoxaparin Sodium (Lovenox) 50 mg Q12 SC Last administered on 05/12/17 09:33 ; Admin Dose 50 MG; Start 05/03/17 at 09:30 Diphenoxylate HCl/ Atropine (Lomotil Liquid Cup) 5 ml Q6H PRN PO DIARRHEA; Start 05/03/17 at 18:00 Collagenase (Santyl) 1 applic DAILY TOP Last administered on 05/11/17 09:39; Admin Dose 1 APPLIC; Start 05/04/17 at 14:30 Desmopressin Acetate 0.05 mg 0.05 mg DAILY GTB Last administered on 05/12/17 09:37; Admin Dose 0.05 MG; Start 05/07/17 at 09:00 Acyclovir/Sodium Chloride (Zovirax/NS) 100 ml @ 100 mls/hr Q8 IVPB Last administered on 05/12/17 06:50; Admin Dose 100 MLS/HR; Start 05/07/17 at 14:00 Vancomycin HCl (Vancomycin Oral Syringe) 125 mg Q6 GTB Last administered on 12:25; Admin Dose 125 MG; Start 05/08/17 at 15:00 Potassium Chloride 20 meq 20 meq BID PO Last administered on 05/12/17 12:23; Admin Dose 20 MEQ; Start 05/12/17 at 10:00 Vancomycin HCl 100 ml @ 100 mls/hr Q8H IVPB ; Start 05/12/17 at 15:00 Meropenem/Sodium Chloride (Merrem 1 Gm/50 ml (Pmx)) 50 ml @ 100 mls/hr Q8H IVPB Last administered on 05/12/17t 12:23; Admin Dose 100 MLS/HR; Start 05/12 at 13:00 Miscellaneous Information (*Rx Drug Level Order Reminder*) VANCOMYCIN TROUGH AT 0600 ONCE ONCE XX ; Start 05/13/17 at 06:00; Stop 05/13/17 at 06:01 MANDIE DAVE May 12, 2017 13:22
[2017-05-12] MEDS: VANCOMYCIN 500MG/NS (PMX) 100 ML IVPB SCH ×2 (14:28→23:36)
--- NOTE | 2017-05-12 19:07 | CONS ---
Date/Time of Note Date/Time of Note DATE: 05/12/17 TIME: 19:06 Assessment/Plan Assessment/Plan Additional Assessment/Plan 1. Non Oliguric Acute kidney injury due to septic shock -Improved 2. Hypernaremia- resolved 3. Septic shock on levophed - Resolved 4. Acute on chronic resp failure s/p Tracheostomy- on ventilator, pulmonary has been following 5. H/o Fungal meningitis, currently comatose 6. H/O Right sided CLINICAL MARKETING MANAGER shunt 7. H/o G tube placement 8. Chcfpresident & founder 9. 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 Plan: Na 137 with DDAVP to 0.05 daily , K replacement protocol, continue NS with KCL at current rate ID, pulmonary has been following , on IV meropenem and IV acyclovir will follow up Consultation Date/Type/Reason Admit Date/Time Apr 25, 2017 at 12:31 Initial Consult Date 04/25/17 Type of Consultation: NEPHROLOGY Referring Provider: HELEN CASTELLANO MD 24 HR Interval Summary Free Text/Dictation K 3.0- no acute events overnight Exam/Review of Systems Vital Signs Vitals Vital Signs Date Time Temp Pulse Resp B/P Pulse Ox O2 Delivery O2 Flow Rate FiO2 05/12/17 17:29 103 16 94 30 05/12/17 16:23 98.2 112/69 05/12/17 15:44 Mechanical Ventilator Intake and Output 05/11/17 05/11/17 05/12/17 15:00 23:00 07:00 Intake Total 900 ml 300 ml Output Total 800 ml Balance 100 ml 300 ml Exam Constitutional: non-verbal Neck: other (Tracheostomy), supple Respiratory: diminished breath sounds Cardiovascular: nl pulses Gastrointestinal: non-tender, other (G-tube), soft Extremities: normal pulses Results Result Diagram: 05/12/17 1039 05/12/17 1039 Results 24 hrs Laboratory Tests Test 05/12/17 10:39 05/12/17 12:06 White Blood Count 6.2 Red Blood Count 3.02 L Hemoglobin 8.9 L Hematocrit 27.1 L Mean Corpuscular Volume 89.7 Mean Corpuscular Hemoglobin 29.5 Mean Corpuscular Hemoglobin Concent 32.8 Red Cell Distribution Width 13.5 Platelet Count 286 Mean Platelet Volume 11.1 H Neutrophils % 71.5 Lymphocytes % 13.5 L Monocytes % 12.2 H Eosinophils % 0.6 Basophils % 1.6 Nucleated Red Blood Cells % 0.0 Neutrophils # 4.4 Lymphocytes # 0.8 Monocytes # 0.8 Eosinophils # 0.0 Basophils # 0.1 Nucleated Red Blood Cells # 0.0 Sodium Level 136 Potassium Level 3.0 L Chloride Level 96 L Carbon Dioxide Level 33 H Anion Gap 10 Blood Urea Nitrogen 8 Creatinine 0.41 L Glucose Level 113 Calcium Level 9.4 Lab Scanned Report REFERENCE LAB Medications Medications Current Medications Acetaminophen (Tylenol Liquid) 650 mg Q4 PRN GTB PAIN AND OR ELEVATED TEMP Last administered on 05/11/17 12:44; Admin Dose 650 MG; Start 04/25/17 at 23: 00 Eye Lubricant (Akwa Oint) 1 applic QID BOTH EYES Last administered on 16:07; Admin Dose 1 APPLIC; Start 04/26/17 at 09:00 Bromocriptine Mesylate (Parlodel) 30 mg DAILY GTB Last administered on 09:29; Admin Dose 30 MG; Start 04/26/17 at 09:00 Chlorhexidine Gluconate (Peridex) 15 ml BID MM Last administered on 05/12/17 09:08; Admin Dose 15 ML; Start 04/26/17 at 09:00 Ferrous Sulfate (Feosol Liquid Cup) 300 mg BID GTB Last administered on 09:29; Admin Dose 300 MG; Start 04/26/17 at 09:00 Hydrocortisone (Cortef) 20 mg DAILY GTB Last administered on 05/12/17 09:30; Admin Dose 20 MG; Start 04/26/17 at 09:00 Ondansetron HCl (Zofran Tab) 4 mg Q8 PRN GTB NAUSEA AND/OR VOMITING; Start at 23:00 Lactobacillus Acidophilus (Florajen3 Capsule) 1 each DAILY PEG Last administered on 05/12/17 09:37; Admin Dose 1 EACH; Start 04/26/17 at 09:00 Ascorbic Acid (Vitamin C) 250 mg BID GTB Last administered on 05/12/17 09:30 ; Admin Dose 250 MG; Start 04/26/17 at 09:00 Famotidine (Pepcid) 20 mg BID GTB Last administered on 05/12/17 09:30; Admin Dose 20 MG; Start 04/26/17 at 09:00 Morphine Sulfate (morphine) 2 mg Q4H PRN IV PAIN Last administered on 14:46; Admin Dose 2 MG; Start 04/26/17 at 16:30 Posaconazole (Noxafil) 400 mg Q8 PO Last administered on 05/12/17 14:27; Admin Dose 400 MG; Start 04/30/17 at 22:00 Ergocalciferol (Drisdol Liquid (Ped)) 50,000 units Q7D GTB Last administered on 05/09/17 09:47; Admin Dose 50,000 UNITS; Start 05/02/17 at 09:30 Enoxaparin Sodium (Lovenox) 50 mg Q12 SC Last administered on 05/12/17 09:33 ; Admin Dose 50 MG; Start 05/03/17 at 09:30 Diphenoxylate HCl/ Atropine (Lomotil Liquid Cup) 5 ml Q6H PRN PO DIARRHEA; Start 05/03/17 at 18:00 Collagenase (Santyl) 1 applic DAILY TOP Last administered on 05/11/17 09:39; Admin Dose 1 APPLIC; Start 05/04/17 at 14:30 Desmopressin Acetate 0.05 mg 0.05 mg DAILY GTB Last administered on 05/12/17 09:37; Admin Dose 0.05 MG; Start 05/07/17 at 09:00 Acyclovir/Sodium Chloride (Zovirax/NS) 100 ml @ 100 mls/hr Q8 IVPB Last administered on 05/12/17 16:10; Admin Dose 100 MLS/HR; Start 05/07/17 at 14:00 Vancomycin HCl (Vancomycin Oral Syringe) 125 mg Q6 GTB Last administered on 17:54; Admin Dose 125 MG; Start 05/08/17 at 15:00 Potassium Chloride 20 meq 20 meq BID PO Last administered on 05/12/17 12:23; Admin Dose 20 MEQ; Start 05/12/17 at 10:00 Vancomycin HCl 100 ml @ 100 mls/hr Q8H IVPB Last administered on 05/12/17 14 :28; Admin Dose 100 MLS/HR; Start 05/12/17 at 15:00 Meropenem/Sodium Chloride (Merrem 1 Gm/50 ml (Pmx)) 50 ml @ 100 mls/hr Q8H IVPB Last administered on 05/12/17t 12:23; Admin Dose 100 MLS/HR; Start 05/12 at 13:00 Miscellaneous Information (*Rx Drug Level Order Reminder*) VANCOMYCIN TROUGH AT 0600 ONCE ONCE XX ; Start 05/13/17 at 06:00; Stop 05/13/17 at 06:01 FARHAT RUBIO MD May 12, 2017 19:07
[2017-05-13] VITALS (24 sets, daily range): BP systolic 109–142; BP diastolic 60–87; PULSE 90–110; RESP 16–21
[2017-05-13] MEDS: MEROPENEM 1 GM/50ML(PMX) 50 ML IVPB SCH ×3 (04:38→21:49)
[2017-05-13] MEDS: ACYCLOVIR 500 MG in SOD CHLORIDE 0.9% 100 ML IVPB SCH ×3 (04:39→23:55)
[2017-05-13] MEDS: VANCOMYCIN HCL 250 MG/5ML POSYG GTB SCH ×3 (04:39→17:09)
[2017-05-13] MEDS: POSACONAZOLE PO SCH ×3 (05:58→21:50)
[2017-05-13 06:08] LABS: BASOPHIL # 0.1 10^3/ul (0.0-0.1); BASOPHILS % 1.8 % (0.0-2.0); EOSINOPHILS # 0.1 10^3/ul (0.0-0.5); EOSINOPHILS % 1.4 % (0.0-7.0); HEMATOCRIT 26.1 % (42.0-52.0); HEMOGLOBIN 8.6 g/dl (14.0-18.0); LYMPHOCYTES % 19.4 % (15.0-51.0); MEAN CORPUSCULAR HEMOGLOBIN 28.9 pg (29.0-33.0); MEAN CORPUSCULAR VOLUME 87.6 fl (82.0-101.0); MEAN PLATELET VOLUME 10.6 fl (7.4-10.4); MONOCYTE # 0.6 10^3/ul (0.3-0.9); MONOCYTES % 11.7 % (0.0-11.0); NEUTROPHIL # 3.3 10^3/ul (1.6-7.5); NEUTROPHILS % 64.9 % (39.0-77.0); PLATELET COUNT 262 10^3/UL (140-415); RED BLOOD COUNT 2.98 10^6/ul (4.70-6.10); RED CELL DISTRIBUTION WIDTH 13.5 % (11.5-14.5)
[2017-05-13 06:29] LABS: CALCIUM 9.3 mg/dl (8.4-10.2); CREATININE 0.38 mg/dl (0.61-1.24); POTASSIUM 3.1 mmol/L (3.5-5.1)
[2017-05-13] MEDS: COLLAGENASE 30 GM TUBE TOP SCH (08:21)
[2017-05-13] MEDS: OCULAR LUBRICANT 3.5 GM OPH OINT BOTH EYES SCH ×4 (08:21→21:53)
[2017-05-13] MEDS: FERROUS SULFATE 60 MG/ML 5ML CUP GTB SCH ×2 (08:22→21:48)
[2017-05-13] MEDS: CHLORHEXIDINE GLUCONATE 15 ML UD CUP MM SCH ×2 (08:22→21:49)
[2017-05-13] MEDS: ACETAMINOPHEN 650MG/20.3ML CUP GTB PRN (08:22)
[2017-05-13] MEDS: VANCOMYCIN 750 MG in SOD CHLORIDE 0.9% 150 ML IVPB SCH ×3 (08:22→23:55)
[2017-05-13] MEDS: ASCORBIC ACID 250 MG TAB GTB SCH ×2 (08:23→21:48)
[2017-05-13] MEDS: HYDROCORTISONE 20 MG TAB GTB SCH (08:23)
[2017-05-13] MEDS: BROMOCRIPTINE 2.5 MG TAB GTB SCH (08:23)
[2017-05-13] MEDS: FAMOTIDINE 20 MG TAB GTB SCH ×2 (08:23→21:49)
[2017-05-13] MEDS: L ACIDOPHIL/B LACTIS/B LONGUM CAPSULE PEG SCH (08:24)
[2017-05-13] MEDS: POTASSIUM CHLORIDE (SR) 20 MEQ TAB PO SCH ×2 (08:24→21:49)
[2017-05-13] MEDS: DESMOPRESSIN 0.1 MG TAB GTB SCH (08:24)
[2017-05-13] MEDS: ENOXAPARIN 60 MG/0.6 ML SYG SC SCH ×2 (08:32→21:52)
[2017-05-13] MEDS: POTASSIUM CHLORIDE 50 ML IVPB PRN ×3 (10:08→13:20)
--- NOTE | 2017-05-13 10:18 | CONS ---
Date/Time of Note Date/Time of Note DATE: 05/13/17 TIME: 10:14 Assessment/Plan Assessment/Plan Chief Complaint/Hosp Course assessment/impression - recurrent fever - C diff colitis, recurrent (1st episode at [facility]) - septic shock due to pneumonia and UTI - UTI due to ESBL+E. coli. Took pip/tazo and then meropenem - b/l pneumonia due to klebsiella, EBL+E. coli. Took pip/tazo and then meropenem - severe herpes labialis - h/o disseminated coccidioides mycosis infection, meningitis. Cocci CF 1:16 on 04/26/2017. posaconazole trough level on 05/07/2017 was 0.37 - s/p VPS placement - VDRF s/p tracheostomy - PEG dependet status - pancytopenia, due to septic shock on admission - thrombocytopenia due to sepsis, improving recommendations - pending results: blood cultures x2, resp culture - I ordered head CT to r/o obstruction, mass - I recommend diagnostic LP to assess the status of his cocci meningitis (and to r/o other microbes) - continue empiric IV vancomycin (05/12/2017-) - continue meropenem (restart 05/09/2017-) - continue pGT vancomycin (05/07/2017), increased to 250mg q6hrs - continue IV acyclovir (05/07/2017-), it was changed from pGT to IV because herpes labialis progressed despite >7 days of pGT acyclovir - continue posaconazole to 400 mg q8hrs (posaconazole trough level 0.32 on 2016, the dose was increased on 04/29/2017; will contact Dr. Moon at [facility] to discuss the treatment - enteric and droplet contact precautions management d/w Pt's mother, RN, Maryann at infection control. Informed Dr. Dozier too the total time I took to care for this Pt today was from 0920 to 1010 Problems: Consultation Date/Type/Reason Admit Date/Time Apr 25, 2017 at 12:31 Initial Consult Date 04/25/17 Type of Consultation: ID Referring Provider: HELEN DOZIER MD 24 HR Interval Summary Subjective hx not possible: pt non-verbal Exam/Review of Systems Vital Signs Vitals Vital Signs Date Time Temp Pulse Resp B/P Pulse Ox O2 Delivery O2 Flow Rate FiO2 05/13/17 08:30 30 05/13/17 08:00 100 05/13/17 07:59 102.5 20 109/71 96 05/13/17 07:10 Mechanical Ventilator Intake and Output 05/12/17 05/12/17 05/13/17 15:00 23:00 07:00 Intake Total 848 ml 1200 ml 1000 ml Output Total 1200 ml 1000 ml 1200 ml Balance -352 ml 200 ml -200 ml Exam Constitutional: frail, non-verbal Psych: confusion Head: other (s/p VPS) Eyes: nl conjunctiva, nl lids ENMT: nl external ears & nose, nl nasal mucosa & septum, other (+ulcer and vesicles on the lower lip) Neck: other (trach) Respiratory: crackles/rales Cardiovascular: nl pulses, regular rate and rhythm Gastrointestinal: non-tender, other (GT), soft Genitourinary - Male: other (FC) Extremities: No edema Neurological: unresponsive Results Result Diagram: 05/13/17 0552 05/13/17 0552 Results 24 hrs Laboratory Tests Test 05/12/17 10:39 05/12/17 12:06 05/13/17 05:52 White Blood Count 6.2 5.0 Red Blood Count 3.02 L 2.98 L Hemoglobin 8.9 L 8.6 L Hematocrit 27.1 L 26.1 L Mean Corpuscular Volume 89.7 87.6 Mean Corpuscular Hemoglobin 29.5 28.9 L Mean Corpuscular Hemoglobin Concent 32.8 33.0 Red Cell Distribution Width 13.5 13.5 Platelet Count 286 262 Mean Platelet Volume 11.1 H 10.6 H Neutrophils % 71.5 64.9 Lymphocytes % 13.5 L 19.4 Monocytes % 12.2 H 11.7 H Eosinophils % 0.6 1.4 Basophils % 1.6 1.8 Nucleated Red Blood Cells % 0.0 0.0 Neutrophils # 4.4 3.3 Lymphocytes # 0.8 1.0 Monocytes # 0.8 0.6 Eosinophils # 0.0 0.1 Basophils # 0.1 0.1 Nucleated Red Blood Cells # 0.0 0.0 Sodium Level 136 134 L Potassium Level 3.0 L 3.1 L Chloride Level 96 L 96 L Carbon Dioxide Level 33 H 30 Anion Gap 10 11 Blood Urea Nitrogen 8 7 Creatinine 0.41 L 0.38 L Glucose Level 113 104 Calcium Level 9.4 9.3 Lab Scanned Report REFERENCE LAB Vancomycin Level Trough 8.9 L Medications Medications Current Medications Acetaminophen (Tylenol Liquid) 650 mg Q4 PRN GTB PAIN AND OR ELEVATED TEMP Last administered on 05/13/17 08:22; Admin Dose 650 MG; Start 04/25/17 at 23: 00 Eye Lubricant (Akwa Oint) 1 applic QID BOTH EYES Last administered on 08:21; Admin Dose 1 APPLIC; Start 04/26/17 at 09:00 Bromocriptine Mesylate (Parlodel) 30 mg DAILY GTB Last administered on 08:23; Admin Dose 30 MG; Start 04/26/17 at 09:00 Chlorhexidine Gluconate (Peridex) 15 ml BID MM Last administered on 05/13/17 08:22; Admin Dose 15 ML; Start 04/26/17 at 09:00 Ferrous Sulfate (Feosol Liquid Cup) 300 mg BID GTB Last administered on 08:22; Admin Dose 300 MG; Start 04/26/17 at 09:00 Hydrocortisone (Cortef) 20 mg DAILY GTB Last administered on 05/13/17 08:23; Admin Dose 20 MG; Start 04/26/17 at 09:00 Ondansetron HCl (Zofran Tab) 4 mg Q8 PRN GTB NAUSEA AND/OR VOMITING; Start at 23:00 Lactobacillus Acidophilus (Florajen3 Capsule) 1 each DAILY PEG Last administered on 05/13/17 08:24; Admin Dose 1 EACH; Start 04/26/17 at 09:00 Ascorbic Acid (Vitamin C) 250 mg BID GTB Last administered on 05/13/17 08:23 ; Admin Dose 250 MG; Start 04/26/17 at 09:00 Famotidine (Pepcid) 20 mg BID GTB Last administered on 05/13/17 08:23; Admin Dose 20 MG; Start 04/26/17 at 09:00 Morphine Sulfate (morphine) 2 mg Q4H PRN IV PAIN Last administered on 14:46; Admin Dose 2 MG; Start 04/26/17 at 16:30 Posaconazole (Noxafil) 400 mg Q8 PO Last administered on 05/13/17 05:58; Admin Dose 400 MG; Start 04/30/17 at 22:00 Ergocalciferol (Drisdol Liquid (Ped)) 50,000 units Q7D GTB Last administered on 05/09/17 09:47; Admin Dose 50,000 UNITS; Start 05/02/17 at 09:30 Enoxaparin Sodium (Lovenox) 50 mg Q12 SC Last administered on 05/13/17 08:32 ; Admin Dose 50 MG; Start 05/03/17 at 09:30 Diphenoxylate HCl/ Atropine (Lomotil Liquid Cup) 5 ml Q6H PRN PO DIARRHEA; Start 05/03/17 at 18:00 Collagenase (Santyl) 1 applic DAILY TOP Last administered on 05/11/17 09:39; Admin Dose 1 APPLIC; Start 05/04/17 at 14:30 Desmopressin Acetate 0.05 mg 0.05 mg DAILY GTB Last administered on 05/13/17 08:24; Admin Dose 0.05 MG; Start 05/07/17 at 09:00 Acyclovir/Sodium Chloride (Zovirax/NS) 100 ml @ 100 mls/hr Q8 IVPB Last administered on 05/13/17 04:39; Admin Dose 100 MLS/HR; Start 05/07/17 at 14:00 Potassium Chloride 20 meq 20 meq BID PO Last administered on 05/13/17 08:24; Admin Dose 20 MEQ; Start 05/12/17 at 10:00 Meropenem/Sodium Chloride 50 ml @ 100 mls/hr Q8H IVPB Last administered on 04:38; Admin Dose 100 MLS/HR; Start 05/12/17 at 13:00 Vancomycin HCl/ Sodium Chloride (Vancocin/NS) 150 ml @ 75 mls/hr Q8H IVPB Last administered on 05/13/17 08:22; Admin Dose 75 MLS/HR; Start 05/13/17 at 07:00 Vancomycin HCl (Vancomycin Oral Syringe) 250 mg Q6 GTB ; Start 05/13/17 at 12: 00 ELENI EVANS M.D. May 13, 2017 10:18
--- NOTE | 2017-05-13 11:55 | RADRPT ---
PROCEDURE: CT Brain without contrast. CLINICAL INDICATION: Headache, fever, history of meningitis, ventriculoperitoneal shunt, evaluate f or hydrocephalus TECHNIQUE: Routine CT scan of the brain was performed on a high resolution multi detector scanner without intravenous contrast. One or more of the following dose reduction techniques were used: Auto mated exposure control; Adjustment of the mA and/or kV according to patient size; Use of iterative r econstruction technique. CTDI = 44 mGy. DLP = 720 mGy-cm. COMPARISON: No prior relevant examinations are available for comparison. FINDINGS: Hemorrhage: No evidence of intracranial hemorrhage. Acute ischemic changes: No evidence of acute ischemic changes. Mass effect: None. Parenchymal volume: Within normal limits for age. Ventricular system: Concordant with parenchymal volume. Shunt catheter is present entering via a rig ht frontal approach and terminating in the right lateral ventricle Chronic changes: Encephalomalacia is present involving the bilateral basal ganglia and junior radiat a and extending into the bilateral temporal stems, possibly from insult. Extracranial soft tissues: Unremarkable. Calvarium: No fractures. Paranasal sinuses: Visualized paranasal sinuses are clear. Mastoid air cells: Visualized mastoid air cells are clear. IMPRESSION: No evidence of acute ischemic changes, mass effect, or intracranial hemorrhage. Central encephalomalacia likely from insult. Normal caliber of the ventricular system with right frontal approach ventriculostomy catheter appear ing in satisfactory position. RPTAT: AADD .Daryn Lyons MD, Date Time Electronically viewed and signed by .Daryn Lyons MD, on 05/13/2017 11:54 .B/
--- NOTE | 2017-05-13 16:03 | PN ---
Date/Time of Note Date/Time of Note DATE: 05/13/17 TIME: 16:01 Assessment/Plan VTE Prophylaxis VTE Prophylaxis Intervention: other Lines/Catheters IV [facility]ter Type (from [facility]): PICC Line Urinary Cath still in place: Yes Assessment/Plan Assessment/Plan - Hypokalemia- replace potassium, am Labs - C. difficile colitis, continue vancomycin via G-tube - Septic shock due to bilateral pneumonia and UTI, resolving. Continue antibiotics per ID. Dr Brown is following in infection disease consultation. 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 Continue Lovenox. - Acute kidney injury, resolving. - Hypernatremia, resolved. Dr Sorensen is following in nephrology consultation. - Hypokalemia, continue k protocol. - Pancytopenia most likely secondary to sepsis - Dysphagia with PEG. Continue tube G-tube feeding - VDRF with tracheostomy - Hydrocephalus, status post HARDENER HELPER shunt. - Polyuria, improving. Further recommendations based on clinical course. Plan of care discussed with Dr. Dzoier Subjective 24 Hr Interval Summary Free Text/Dictation Will get neurosurgery consult sect to pessistent fever, sp HARDENER HELPER Shunt. ID follows. dw staff Subjective hx not possible: pt non-verbal Constitutional: requiring IVF, requiring O2 Exam/Review of Systems Vital Signs Vitals Vital Signs Date Time Temp Pulse Resp B/P Pulse Ox O2 Delivery O2 Flow Rate FiO2 05/13/17 15:53 101.2 101 20 142/87 94 05/13/17 15:41 Mechanical Ventilator 05/13/17 15:20 30 Intake and Output 05/12/17 05/12/17 05/13/17 15:00 23:00 07:00 Intake Total 848 ml 1200 ml 1000 ml Output Total 1200 ml 1000 ml 1200 ml Balance -352 ml 200 ml -200 ml Exam Constitutional: non-verbal Cardiovascular: nl pulses Gastrointestinal: soft Extremities: normal pulses Neurological: unresponsive Results Result Diagram: 05/13/17 0552 05/13/17 0552 Results 24 hrs Laboratory Tests Test 05/13/17 05:52 White Blood Count 5.0 Red Blood Count 2.98 L Hemoglobin 8.6 L Hematocrit 26.1 L Mean Corpuscular Volume 87.6 Mean Corpuscular Hemoglobin 28.9 L Mean Corpuscular Hemoglobin Concent 33.0 Red Cell Distribution Width 13.5 Platelet Count 262 Mean Platelet Volume 10.6 H Neutrophils % 64.9 Lymphocytes % 19.4 Monocytes % 11.7 H Eosinophils % 1.4 Basophils % 1.8 Nucleated Red Blood Cells % 0.0 Neutrophils # 3.3 Lymphocytes # 1.0 Monocytes # 0.6 Eosinophils # 0.1 Basophils # 0.1 Nucleated Red Blood Cells # 0.0 Sodium Level 134 L Potassium Level 3.1 L Chloride Level 96 L Carbon Dioxide Level 30 Anion Gap 11 Blood Urea Nitrogen 7 Creatinine 0.38 L Glucose Level 104 Calcium Level 9.3 Vancomycin Level Trough 8.9 L Medications Medications Current Medications Acetaminophen (Tylenol Liquid) 650 mg Q4 PRN GTB PAIN AND OR ELEVATED TEMP Last administered on 05/13/17 08:22; Admin Dose 650 MG; Start 04/25/17 at 23: 00 Eye Lubricant (Akwa Oint) 1 applic QID BOTH EYES Last administered on 12:15; Admin Dose 1 APPLIC; Start 04/26/17 at 09:00 Bromocriptine Mesylate (Parlodel) 30 mg DAILY GTB Last administered on 08:23; Admin Dose 30 MG; Start 04/26/17 at 09:00 Chlorhexidine Gluconate (Peridex) 15 ml BID MM Last administered on 05/13/17 08:22; Admin Dose 15 ML; Start 04/26/17 at 09:00 Ferrous Sulfate (Feosol Liquid Cup) 300 mg BID GTB Last administered on 08:22; Admin Dose 300 MG; Start 04/26/17 at 09:00 Hydrocortisone (Cortef) 20 mg DAILY GTB Last administered on 05/13/17 08:23; Admin Dose 20 MG; Start 04/26/17 at 09:00 Ondansetron HCl (Zofran Tab) 4 mg Q8 PRN GTB NAUSEA AND/OR VOMITING; Start at 23:00 Lactobacillus Acidophilus (Florajen3 Capsule) 1 each DAILY PEG Last administered on 05/13/17 08:24; Admin Dose 1 EACH; Start 04/26/17 at 09:00 Ascorbic Acid (Vitamin C) 250 mg BID GTB Last administered on 05/13/17 08:23 ; Admin Dose 250 MG; Start 04/26/17 at 09:00 Famotidine (Pepcid) 20 mg BID GTB Last administered on 05/13/17 08:23; Admin Dose 20 MG; Start 04/26/17 at 09:00 Morphine Sulfate (morphine) 2 mg Q4H PRN IV PAIN Last administered on 14:46; Admin Dose 2 MG; Start 04/26/17 at 16:30 Posaconazole (Noxafil) 400 mg Q8 PO Last administered on 05/13/17 13:20; Admin Dose 400 MG; Start 04/30/17 at 22:00 Ergocalciferol (Drisdol Liquid (Ped)) 50,000 units Q7D GTB Last administered on 05/09/17 09:47; Admin Dose 50,000 UNITS; Start 05/02/17 at 09:30 Enoxaparin Sodium (Lovenox) 50 mg Q12 SC Last administered on 05/13/17 08:32 ; Admin Dose 50 MG; Start 05/03/17 at 09:30 Diphenoxylate HCl/ Atropine (Lomotil Liquid Cup) 5 ml Q6H PRN PO DIARRHEA; Start 05/03/17 at 18:00 Collagenase (Santyl) 1 applic DAILY TOP Last administered on 05/11/17 09:39; Admin Dose 1 APPLIC; Start 05/04/17 at 14:30 Desmopressin Acetate 0.05 mg 0.05 mg DAILY GTB Last administered on 05/13/17 08:24; Admin Dose 0.05 MG; Start 05/07/17 at 09:00 Acyclovir/Sodium Chloride (Zovirax/NS) 100 ml @ 100 mls/hr Q8 IVPB Last administered on 05/13/17 13:20; Admin Dose 100 MLS/HR; Start 05/07/17 at 14:00 Potassium Chloride 20 meq 20 meq BID PO Last administered on 05/13/17 08:24; Admin Dose 20 MEQ; Start 05/12/17 at 10:00 Meropenem/Sodium Chloride 50 ml @ 100 mls/hr Q8H IVPB Last administered on 12:23; Admin Dose 100 MLS/HR; Start 05/12/17 at 13:00 Vancomycin HCl/ Sodium Chloride (Vancocin/NS) 150 ml @ 75 mls/hr Q8H IVPB Last administered on 05/13/17 14:52; Admin Dose 75 MLS/HR; Start 05/13/17 at 07:00 Vancomycin HCl (Vancomycin Oral Syringe) 250 mg Q6 GTB Last administered on 12:23; Admin Dose 250 MG; Start 05/13/17 at 12:00 BATSHEVA MCKEON May 13, 2017 16:03
--- NOTE | 2017-05-13 18:47 | CONS ---
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 CT shows normal ventricular size, multiple areas on encephalomalacia. No evidence shunt malfunction. Persistent fevers. Can tap shunt if CSF sample requested. Full consult to follow. Problems: Consultation Date/Type/Reason Admit Date/Time Apr 25, 2017 at 12:31 Date of Consultation: May 13, 2017 Type of Consultation: Neurosurgery Constitutional: requiring IVF, requiring O2 Psychological: confusion Past Medical History Medical History: other (FUngal meningitis, coma ) Past Surgical History Past Surgical Hx: other (Right sided B[employer]LE [employer]SE PUMPER carmona, G tube, Tracheostomy ) Social History Alcohol Use: other Smoking Status: Never smoker Drug Use: other (Not available ) Exam/Review of Systems Vital Signs Vitals Vital Signs Date Time Temp Pulse Resp B/P Pulse Ox O2 Delivery O2 Flow Rate FiO2 05/13/17 17:00 93 17 97 30 05/13/17 15:53 101.2 142/87 05/13/17 15:41 Mechanical Ventilator Intake and Output 05/12/17 05/12/17 05/13/17 15:00 23:00 07:00 Intake Total 848 ml 1200 ml 1000 ml Output Total 1200 ml 1000 ml 1200 ml Balance -352 ml 200 ml -200 ml Results Result Diagram: 05/13/17 0552 05/13/17 0552 Results 24 hrs Laboratory Tests Test 05/13/17 05:52 White Blood Count 5.0 Red Blood Count 2.98 L Hemoglobin 8.6 L Hematocrit 26.1 L Mean Corpuscular Volume 87.6 Mean Corpuscular Hemoglobin 28.9 L Mean Corpuscular Hemoglobin Concent 33.0 Red Cell Distribution Width 13.5 Platelet Count 262 Mean Platelet Volume 10.6 H Neutrophils % 64.9 Lymphocytes % 19.4 Monocytes % 11.7 H Eosinophils % 1.4 Basophils % 1.8 Nucleated Red Blood Cells % 0.0 Neutrophils # 3.3 Lymphocytes # 1.0 Monocytes # 0.6 Eosinophils # 0.1 Basophils # 0.1 Nucleated Red Blood Cells # 0.0 Sodium Level 134 L Potassium Level 3.1 L Chloride Level 96 L Carbon Dioxide Level 30 Anion Gap 11 Blood Urea Nitrogen 7 Creatinine 0.38 L Glucose Level 104 Calcium Level 9.3 Vancomycin Level Trough 8.9 L Medications Medications Current Medications Acetaminophen (Tylenol Liquid) 650 mg Q4 PRN GTB PAIN AND OR ELEVATED TEMP Last administered on 05/13/17 08:22; Admin Dose 650 MG; Start 04/25/17 at 23: 00 Eye Lubricant (Akwa Oint) 1 applic QID BOTH EYES Last administered on 17:09; Admin Dose 1 APPLIC; Start 04/26/17 at 09:00 Bromocriptine Mesylate (Parlodel) 30 mg DAILY GTB Last administered on 08:23; Admin Dose 30 MG; Start 04/26/17 at 09:00 Chlorhexidine Gluconate (Peridex) 15 ml BID MM Last administered on 05/13/17 08:22; Admin Dose 15 ML; Start 04/26/17 at 09:00 Ferrous Sulfate (Feosol Liquid Cup) 300 mg BID GTB Last administered on 08:22; Admin Dose 300 MG; Start 04/26/17 at 09:00 Hydrocortisone (Cortef) 20 mg DAILY GTB Last administered on 05/13/17 08:23; Admin Dose 20 MG; Start 04/26/17 at 09:00 Ondansetron HCl (Zofran Tab) 4 mg Q8 PRN GTB NAUSEA AND/OR VOMITING; Start at 23:00 Lactobacillus Acidophilus (Florajen3 Capsule) 1 each DAILY PEG Last administered on 05/13/17 08:24; Admin Dose 1 EACH; Start 04/26/17 at 09:00 Ascorbic Acid (Vitamin C) 250 mg BID GTB Last administered on 05/13/17 08:23 ; Admin Dose 250 MG; Start 04/26/17 at 09:00 Famotidine (Pepcid) 20 mg BID GTB Last administered on 05/13/17 08:23; Admin Dose 20 MG; Start 04/26/17 at 09:00 Morphine Sulfate (morphine) 2 mg Q4H PRN IV PAIN Last administered on 14:46; Admin Dose 2 MG; Start 04/26/17 at 16:30 Posaconazole (Noxafil) 400 mg Q8 PO Last administered on 05/13/17 13:20; Admin Dose 400 MG; Start 04/30/17 at 22:00 Ergocalciferol (Drisdol Liquid (Ped)) 50,000 units Q7D GTB Last administered on 05/09/17 09:47; Admin Dose 50,000 UNITS; Start 05/02/17 at 09:30 Enoxaparin Sodium (Lovenox) 50 mg Q12 SC Last administered on 05/13/17 08:32 ; Admin Dose 50 MG; Start 05/03/17 at 09:30 Diphenoxylate HCl/ Atropine (Lomotil Liquid Cup) 5 ml Q6H PRN PO DIARRHEA; Start 05/03/17 at 18:00 Collagenase (Santyl) 1 applic DAILY TOP Last administered on 05/11/17 09:39; Admin Dose 1 APPLIC; Start 05/04/17 at 14:30 Desmopressin Acetate 0.05 mg 0.05 mg DAILY GTB Last administered on 05/13/17 08:24; Admin Dose 0.05 MG; Start 05/07/17 at 09:00 Acyclovir/Sodium Chloride (Zovirax/NS) 100 ml @ 100 mls/hr Q8 IVPB Last administered on 05/13/17 13:20; Admin Dose 100 MLS/HR; Start 05/07/17 at 14:00 Potassium Chloride 20 meq 20 meq BID PO Last administered on 05/13/17 08:24; Admin Dose 20 MEQ; Start 05/12/17 at 10:00 Meropenem/Sodium Chloride 50 ml @ 100 mls/hr Q8H IVPB Last administered on 12:23; Admin Dose 100 MLS/HR; Start 05/12/17 at 13:00 Vancomycin HCl/ Sodium Chloride (Vancocin/NS) 150 ml @ 75 mls/hr Q8H IVPB Last administered on 05/13/17 14:52; Admin Dose 75 MLS/HR; Start 05/13/17 at 07:00 Vancomycin HCl (Vancomycin Oral Syringe) 250 mg Q6 GTB Last administered on 17:09; Admin Dose 250 MG; Start 05/13/17 at 12:00 Miscellaneous Information (*Rx Drug Level Order Reminder*) 1 ONCE ONCE XX ; Start 05/14/17 at 14:00; Stop 05/14/17 at 14:01 NANDO YAO MD May 13, 2017 18:47
--- NOTE | 2017-05-13 19:34 | PN ---
Date/Time of Note Date/Time of Note DATE: 05/13/17 TIME: 19:31 Assessment/Plan VTE Prophylaxis VTE Prophylaxis Intervention: SCD's Lines/Catheters IV Catheter Type (from Nrs): PICC Line Central line still needed: No Urinary Cath still in place: No Assessment/Plan Assessment/Plan Disseminated coccidiomycosis Pneumonia UTI Vent dependent respiratory failure Encephalopathy DVT -Blood pressure trend overall stable. Patient with DVT on anticoagulation. Fluids and electrolyte management as per our nephrology colleagues. No new cardiac orders at the current time Subjective 24 Hr Interval Summary Free Text/Dictation The patient with no cahnge Exam/Review of Systems Vital Signs Vitals Vital Signs Date Time Temp Pulse Resp B/P Pulse Ox O2 Delivery O2 Flow Rate FiO2 05/13/17 17:00 93 17 97 30 05/13/17 15:53 101.2 142/87 05/13/17 15:41 Mechanical Ventilator Intake and Output 05/12/17 05/12/17 05/13/17 15:00 23:00 07:00 Intake Total 848 ml 1200 ml 1000 ml Output Total 1200 ml 1000 ml 1200 ml Balance -352 ml 200 ml -200 ml Results Result Diagram: 05/13/17 0552 05/13/17 0552 Results 24 hrs Laboratory Tests Test 05/13/17 05:52 White Blood Count 5.0 Red Blood Count 2.98 L Hemoglobin 8.6 L Hematocrit 26.1 L Mean Corpuscular Volume 87.6 Mean Corpuscular Hemoglobin 28.9 L Mean Corpuscular Hemoglobin Concent 33.0 Red Cell Distribution Width 13.5 Platelet Count 262 Mean Platelet Volume 10.6 H Neutrophils % 64.9 Lymphocytes % 19.4 Monocytes % 11.7 H Eosinophils % 1.4 Basophils % 1.8 Nucleated Red Blood Cells % 0.0 Neutrophils # 3.3 Lymphocytes # 1.0 Monocytes # 0.6 Eosinophils # 0.1 Basophils # 0.1 Nucleated Red Blood Cells # 0.0 Sodium Level 134 L Potassium Level 3.1 L Chloride Level 96 L Carbon Dioxide Level 30 Anion Gap 11 Blood Urea Nitrogen 7 Creatinine 0.38 L Glucose Level 104 Calcium Level 9.3 Vancomycin Level Trough 8.9 L Medications Medications Current Medications Acetaminophen (Tylenol Liquid) 650 mg Q4 PRN GTB PAIN AND OR ELEVATED TEMP Last administered on 05/13/17t 08:22; Admin Dose 650 MG; Start 04/25/17 at 23: 00 Eye Lubricant (Akwa Oint) 1 applic QID BOTH EYES Last administered on 17:09; Admin Dose 1 APPLIC; Start 04/26/17 at 09:00 Bromocriptine Mesylate (Parlodel) 30 mg DAILY GTB Last administered on 08:23; Admin Dose 30 MG; Start 04/26/17 at 09:00 Chlorhexidine Gluconate (Peridex) 15 ml BID MM Last administered on 05/13/17 08:22; Admin Dose 15 ML; Start 04/26/17 at 09:00 Ferrous Sulfate (Feosol Liquid Cup) 300 mg BID GTB Last administered on 08:22; Admin Dose 300 MG; Start 04/26/17 at 09:00 Hydrocortisone (Cortef) 20 mg DAILY GTB Last administered on 05/13/17 08:23; Admin Dose 20 MG; Start 04/26/17 at 09:00 Ondansetron HCl (Zofran Tab) 4 mg Q8 PRN GTB NAUSEA AND/OR VOMITING; Start at 23:00 Lactobacillus Acidophilus (Florajen3 Capsule) 1 each DAILY PEG Last administered on 05/13/17 08:24; Admin Dose 1 EACH; Start 04/26/17 at 09:00 Ascorbic Acid (Vitamin C) 250 mg BID GTB Last administered on 05/13/17 08:23 ; Admin Dose 250 MG; Start 04/26/17 at 09:00 Famotidine (Pepcid) 20 mg BID GTB Last administered on 05/13/17 08:23; Admin Dose 20 MG; Start 04/26/17 at 09:00 Morphine Sulfate (morphine) 2 mg Q4H PRN IV PAIN Last administered on 14:46; Admin Dose 2 MG; Start 04/26/17 at 16:30 Posaconazole (Noxafil) 400 mg Q8 PO Last administered on 05/13/17 13:20; Admin Dose 400 MG; Start 04/30/17 at 22:00 Ergocalciferol (Drisdol Liquid (Ped)) 50,000 units Q7D GTB Last administered on 05/09/17 09:47; Admin Dose 50,000 UNITS; Start 05/02/17 at 09:30 Enoxaparin Sodium (Lovenox) 50 mg Q12 SC Last administered on 05/13/17 08:32 ; Admin Dose 50 MG; Start 05/03/17 at 09:30 Diphenoxylate HCl/ Atropine (Lomotil Liquid Cup) 5 ml Q6H PRN PO DIARRHEA; Start 05/03/17 at 18:00 Collagenase (Santyl) 1 applic DAILY TOP Last administered on 05/11/17 09:39; Admin Dose 1 APPLIC; Start 05/04/17 at 14:30 Desmopressin Acetate 0.05 mg 0.05 mg DAILY GTB Last administered on 05/13/17 08:24; Admin Dose 0.05 MG; Start 05/07/17 at 09:00 Acyclovir/Sodium Chloride (Zovirax/NS) 100 ml @ 100 mls/hr Q8 IVPB Last administered on 05/13/17 13:20; Admin Dose 100 MLS/HR; Start 05/07/17 at 14:00 Potassium Chloride 20 meq 20 meq BID PO Last administered on 05/13/17 08:24; Admin Dose 20 MEQ; Start 05/12/17 at 10:00 Meropenem/Sodium Chloride 50 ml @ 100 mls/hr Q8H IVPB Last administered on 12:23; Admin Dose 100 MLS/HR; Start 05/12/17 at 13:00 Vancomycin HCl/ Sodium Chloride (Vancocin/NS) 150 ml @ 75 mls/hr Q8H IVPB Last administered on 05/13/17 14:52; Admin Dose 75 MLS/HR; Start 05/13/17 at 07:00 Vancomycin HCl (Vancomycin Oral Syringe) 250 mg Q6 GTB Last administered on 17:09; Admin Dose 250 MG; Start 05/13/17 at 12:00 Miscellaneous Information (*Rx Drug Level Order Reminder*) 1 ONCE ONCE XX ; Start 05/14/17 at 14:00; Stop 05/14/17 at 14:01 ORI SESAY MD May 13, 2017 19:34
--- NOTE | 2017-05-13 20:43 | CONS ---
Date/Time of Note Date/Time of Note DATE: 05/13/17 TIME: 20:41 Assessment/Plan Assessment/Plan Additional Assessment/Plan 1. Non Oliguric Acute kidney injury due to septic shock -Improved 2. Hypernaremia- resolved 3. Septic shock on levophed - Resolved 4. Acute on chronic resp failure s/p Tracheostomy- on ventilator, pulmonary has been following 5. H/o Fungal meningitis, currently comatose 6. H/O Right sided VISUAL EDUCATOR shunt 7. H/o G tube placement 8. [facility] 9. 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 Plan: Na 137 with DDAVP to 0.05 daily , K replacement protocol, continue NS with KCL at current rate ID, pulmonary has been following , on IV meropenem and IV acyclovir will follow up Consultation Date/Type/Reason Admit Date/Time Apr 25, 2017 at 12:31 Initial Consult Date 04/25/17 Type of Consultation: NEPHROLOGY Referring Provider: HELEN CASTELLANO MD 24 HR Interval Summary Free Text/Dictation Na 134, K 3.1, BP stable, afebrile Exam/Review of Systems Vital Signs Vitals Vital Signs Date Time Temp Pulse Resp B/P Pulse Ox O2 Delivery O2 Flow Rate FiO2 05/13/17 20:31 93 05/13/17 19:44 99.3 19 130/60 100 05/13/17 17:00 30 05/13/17 15:41 Mechanical Ventilator Intake and Output 05/12/17 05/12/17 05/13/17 15:00 23:00 07:00 Intake Total 848 ml 1200 ml 1000 ml Output Total 1200 ml 1000 ml 1200 ml Balance -352 ml 200 ml -200 ml Exam Constitutional: non-verbal Neck: other (Tracheostomy), supple Respiratory: diminished breath sounds Cardiovascular: nl pulses Gastrointestinal: non-tender, other (G-tube), soft Extremities: normal pulses Results Result Diagram: 05/13/17 0552 05/13/17 0552 Results 24 hrs Laboratory Tests Test 05/13/17 05:52 White Blood Count 5.0 Red Blood Count 2.98 L Hemoglobin 8.6 L Hematocrit 26.1 L Mean Corpuscular Volume 87.6 Mean Corpuscular Hemoglobin 28.9 L Mean Corpuscular Hemoglobin Concent 33.0 Red Cell Distribution Width 13.5 Platelet Count 262 Mean Platelet Volume 10.6 H Neutrophils % 64.9 Lymphocytes % 19.4 Monocytes % 11.7 H Eosinophils % 1.4 Basophils % 1.8 Nucleated Red Blood Cells % 0.0 Neutrophils # 3.3 Lymphocytes # 1.0 Monocytes # 0.6 Eosinophils # 0.1 Basophils # 0.1 Nucleated Red Blood Cells # 0.0 Sodium Level 134 L Potassium Level 3.1 L Chloride Level 96 L Carbon Dioxide Level 30 Anion Gap 11 Blood Urea Nitrogen 7 Creatinine 0.38 L Glucose Level 104 Calcium Level 9.3 Vancomycin Level Trough 8.9 L Medications Medications Current Medications Acetaminophen (Tylenol Liquid) 650 mg Q4 PRN GTB PAIN AND OR ELEVATED TEMP Last administered on 05/13/17 08:22; Admin Dose 650 MG; Start 04/25/17 at 23: 00 Eye Lubricant (Akwa Oint) 1 applic QID BOTH EYES Last administered on 17:09; Admin Dose 1 APPLIC; Start 04/26/17 at 09:00 Bromocriptine Mesylate (Parlodel) 30 mg DAILY GTB Last administered on 08:23; Admin Dose 30 MG; Start 04/26/17 at 09:00 Chlorhexidine Gluconate (Peridex) 15 ml BID MM Last administered on 05/13/17 08:22; Admin Dose 15 ML; Start 04/26/17 at 09:00 Ferrous Sulfate (Feosol Liquid Cup) 300 mg BID GTB Last administered on 08:22; Admin Dose 300 MG; Start 04/26/17 at 09:00 Hydrocortisone (Cortef) 20 mg DAILY GTB Last administered on 05/13/17 08:23; Admin Dose 20 MG; Start 04/26/17 at 09:00 Ondansetron HCl (Zofran Tab) 4 mg Q8 PRN GTB NAUSEA AND/OR VOMITING; Start at 23:00 Lactobacillus Acidophilus (Florajen3 Capsule) 1 each DAILY PEG Last administered on 05/13/17 08:24; Admin Dose 1 EACH; Start 04/26/17 at 09:00 Ascorbic Acid (Vitamin C) 250 mg BID GTB Last administered on 05/13/17 08:23 ; Admin Dose 250 MG; Start 04/26/17 at 09:00 Famotidine (Pepcid) 20 mg BID GTB Last administered on 05/13/17 08:23; Admin Dose 20 MG; Start 04/26/17 at 09:00 Morphine Sulfate (morphine) 2 mg Q4H PRN IV PAIN Last administered on 14:46; Admin Dose 2 MG; Start 04/26/17 at 16:30 Posaconazole (Noxafil) 400 mg Q8 PO Last administered on 05/13/17 13:20; Admin Dose 400 MG; Start 04/30/17 at 22:00 Ergocalciferol (Drisdol Liquid (Ped)) 50,000 units Q7D GTB Last administered on 05/09/17 09:47; Admin Dose 50,000 UNITS; Start 05/02/17 at 09:30 Enoxaparin Sodium (Lovenox) 50 mg Q12 SC Last administered on 05/13/17 08:32 ; Admin Dose 50 MG; Start 05/03/17 at 09:30 Diphenoxylate HCl/ Atropine (Lomotil Liquid Cup) 5 ml Q6H PRN PO DIARRHEA; Start 05/03/17 at 18:00 Collagenase (Santyl) 1 applic DAILY TOP Last administered on 05/11/17 09:39; Admin Dose 1 APPLIC; Start 05/04/17 at 14:30 Desmopressin Acetate 0.05 mg 0.05 mg DAILY GTB Last administered on 05/13/17 08:24; Admin Dose 0.05 MG; Start 05/07/17 at 09:00 Acyclovir/Sodium Chloride (Zovirax/NS) 100 ml @ 100 mls/hr Q8 IVPB Last administered on 05/13/17 13:20; Admin Dose 100 MLS/HR; Start 05/07/17 at 14:00 Potassium Chloride 20 meq 20 meq BID PO Last administered on 05/13/17 08:24; Admin Dose 20 MEQ; Start 05/12/17 at 10:00 Meropenem/Sodium Chloride 50 ml @ 100 mls/hr Q8H IVPB Last administered on 12:23; Admin Dose 100 MLS/HR; Start 05/12/17 at 13:00 Vancomycin HCl/ Sodium Chloride (Vancocin/NS) 150 ml @ 75 mls/hr Q8H IVPB Last administered on 05/13/17 14:52; Admin Dose 75 MLS/HR; Start 05/13/17 at 07:00 Vancomycin HCl (Vancomycin Oral Syringe) 250 mg Q6 GTB Last administered on 17:09; Admin Dose 250 MG; Start 05/13/17 at 12:00 Miscellaneous Information (*Rx Drug Level Order Reminder*) 1 ONCE ONCE XX ; Start 05/14/17 at 14:00; Stop 05/14/17 at 14:01 FARHAT RUBIO MD May 13, 2017 20:43
[2017-05-14] VITALS (22 sets, daily range): BP systolic 109–146; BP diastolic 63–82; PULSE 82–109; RESP 16–20
[2017-05-14] MEDS: VANCOMYCIN HCL 250 MG/5ML POSYG GTB SCH ×4 (00:21→18:52)
[2017-05-14] MEDS: ACETAMINOPHEN 650MG/20.3ML CUP GTB PRN (03:14)
[2017-05-14] MEDS: MEROPENEM 1 GM/50ML(PMX) 50 ML IVPB SCH ×3 (05:37→21:55)
[2017-05-14] MEDS: POSACONAZOLE PO SCH ×3 (05:38→21:56)
[2017-05-14] MEDS: VANCOMYCIN 750 MG in SOD CHLORIDE 0.9% 150 ML IVPB SCH (06:32)
[2017-05-14] MEDS: ACYCLOVIR 500 MG in SOD CHLORIDE 0.9% 100 ML IVPB SCH ×3 (06:32→21:55)
[2017-05-14] MEDS: COLLAGENASE 30 GM TUBE TOP SCH (09:00)
--- NOTE | 2017-05-14 09:27 | CONS ---
Date/Time of Note Date/Time of Note DATE: 05/14/17 TIME: 09:10 Assessment/Plan Assessment/Plan Chief Complaint/Hosp Course assessment/impression - recurrent fever - C diff colitis, recurrent - septic shock due to pneumonia and UTI - UTI due to ESBL+E. coli. Took pip/tazo and then meropenem - b/l pneumonia due to klebsiella, EBL+E. coli. - severe herpes labialis - h/o disseminated coccidioides mycosis infection, meningitis. - coccidioides CF 14:8 on 03/21/2017, CF 1:16 on 04/26/2017 - posaconazole trough level 0.32 on 04/27/2017, the dose was increased on 2016. The repeat level 0/37 on 05/07/2017 - CSF, last LP on record at [facility] on 03/31/2017: WBC 4 33% PMNs, RBC 16, glu <10, protein >2,000. - s/p VPS placement - VDRF s/p tracheostomy - PEG dependet status - pancytopenia, due to septic shock on admission, improved - thrombocytopenia, improved recommendations - pending results: blood cultures x2 - I recommend collecting CSF to assess the status of his cocci meningitis (and to r/o other microbes).Please send CSF for coccidioides compliment fixation (CF) , cell count and diff, protein, glucose, bacterial culture, fungal culture, HSV PCR - continue empiric IV vancomycin (05/12/2017-) - continue meropenem (restart 05/09/2017-) - continue pGT vancomycin (05/07/2017-) - continue IV acyclovir (05/07/2017-), it was changed from pGT to IV because herpes labialis progressed despite >7 days of pGT acyclovir - continue posaconazole to 400 mg q8hrs (posaconazole trough level 0.32 on 2016, the dose was increased on 04/29/2017; will contact Dr. Moon at [facility] to discuss the treatment plan once repeat CSF is performed - enteric and droplet contact precautions management d/w MOBILE NURSE Alexander yesterday Problems: Consultation Date/Type/Reason Admit Date/Time Apr 25, 2017 at 12:31 Initial Consult Date 04/25/17 Type of Consultation: NEPHROLOGY Referring Provider: HELEN CASTELLANO MD 24 HR Interval Summary Subjective hx not possible: pt non-verbal Exam/Review of Systems Vital Signs Vitals Vital Signs Date Time Temp Pulse Resp B/P Pulse Ox O2 Delivery O2 Flow Rate FiO2 05/14/17 08:41 98 05/14/17 08:13 99.2 20 109/64 96 05/14/17 07:10 30 05/13/17 15:41 Mechanical Ventilator Intake and Output 05/13/17 05/13/17 05/14/17 15:00 23:00 07:00 Intake Total 1200 ml 1000 ml Output Total 1000 ml 1200 ml Balance 200 ml -200 ml Exam Constitutional: frail, non-verbal Psych: confusion Head: other (s/p PVS placement) Eyes: nl conjunctiva ENMT: nl external ears & nose, nl nasal mucosa & septum, other (herpes labialis ) Neck: other (trach) Cardiovascular: nl pulses, regular rate and rhythm Gastrointestinal: non-tender, soft Musculoskeletal: nl extremities to inspection Extremities: No edema Neurological: other (hyperreflexic), unresponsive Skin: nl turgor Results Result Diagram: 05/13/17 0552 05/13/17 0552 Medications Medications Current Medications Acetaminophen (Tylenol Liquid) 650 mg Q4 PRN GTB PAIN AND OR ELEVATED TEMP Last administered on 05/14/17 03:14; Admin Dose 650 MG; Start 04/25/17 at 23: 00 Eye Lubricant (Akwa Oint) 1 applic QID BOTH EYES Last administered on 21:53; Admin Dose 1 APPLIC; Start 04/26/17 at 09:00 Bromocriptine Mesylate (Parlodel) 30 mg DAILY GTB Last administered on 08:23; Admin Dose 30 MG; Start 04/26/17 at 09:00 Chlorhexidine Gluconate (Peridex) 15 ml BID MM Last administered on 05/13/17 21:49; Admin Dose 15 ML; Start 04/26/17 at 09:00 Ferrous Sulfate (Feosol Liquid Cup) 300 mg BID GTB Last administered on 21:48; Admin Dose 300 MG; Start 04/26/17 at 09:00 Hydrocortisone (Cortef) 20 mg DAILY GTB Last administered on 05/13/17 08:23; Admin Dose 20 MG; Start 04/26/17 at 09:00 Ondansetron HCl (Zofran Tab) 4 mg Q8 PRN GTB NAUSEA AND/OR VOMITING; Start at 23:00 Lactobacillus Acidophilus (Florajen3 Capsule) 1 each DAILY PEG Last administered on 05/13/17 08:24; Admin Dose 1 EACH; Start 04/26/17 at 09:00 Ascorbic Acid (Vitamin C) 250 mg BID GTB Last administered on 05/13/17 21:48 ; Admin Dose 250 MG; Start 04/26/17 at 09:00 Famotidine (Pepcid) 20 mg BID GTB Last administered on 05/13/17 21:49; Admin Dose 20 MG; Start 04/26/17 at 09:00 Morphine Sulfate (morphine) 2 mg Q4H PRN IV PAIN Last administered on 14:46; Admin Dose 2 MG; Start 04/26/17 at 16:30 Posaconazole (Noxafil) 400 mg Q8 PO Last administered on 05/14/17 05:38; Admin Dose 400 MG; Start 04/30/17 at 22:00 Ergocalciferol (Drisdol Liquid (Ped)) 50,000 units Q7D GTB Last administered on 05/09/17 09:47; Admin Dose 50,000 UNITS; Start 05/02/17 at 09:30 Enoxaparin Sodium (Lovenox) 50 mg Q12 SC Last administered on 05/13/17 21:52 ; Admin Dose 50 MG; Start 05/03/17 at 09:30 Diphenoxylate HCl/ Atropine (Lomotil Liquid Cup) 5 ml Q6H PRN PO DIARRHEA; Start 05/03/17 at 18:00 Collagenase (Santyl) 1 applic DAILY TOP Last administered on 05/11/17 09:39; Admin Dose 1 APPLIC; Start 05/04/17 at 14:30 Desmopressin Acetate 0.05 mg 0.05 mg DAILY GTB Last administered on 05/13/17 08:24; Admin Dose 0.05 MG; Start 05/07/17 at 09:00 Acyclovir/Sodium Chloride (Zovirax/NS) 100 ml @ 100 mls/hr Q8 IVPB Last administered on 05/14/17 06:32; Admin Dose 100 MLS/HR; Start 05/07/17 at 14:00 Potassium Chloride 20 meq 20 meq BID PO Last administered on 05/13/17 21:49; Admin Dose 20 MEQ; Start 05/12/17 at 10:00 Meropenem/Sodium Chloride 50 ml @ 100 mls/hr Q8H IVPB Last administered on 05:37; Admin Dose 100 MLS/HR; Start 05/12/17 at 13:00 Vancomycin HCl/ Sodium Chloride (Vancocin/NS) 150 ml @ 75 mls/hr Q8H IVPB Last administered on 05/14/17 06:32; Admin Dose 75 MLS/HR; Start 05/13/17 at 07:00 Vancomycin HCl (Vancomycin Oral Syringe) 250 mg Q6 GTB Last administered on 05:38; Admin Dose 250 MG; Start 05/13/17 at 12:00 Miscellaneous Information (*Rx Drug Level Order Reminder*) 1 ONCE ONCE XX ; Start 05/14/17 at 14:00; Stop 05/14/17 at 14:01 ELENI EVANS M.D. May 14, 2017 09:26
[2017-05-14] MEDS: CHLORHEXIDINE GLUCONATE 15 ML UD CUP MM SCH ×2 (10:16→21:55)
[2017-05-14] MEDS: FERROUS SULFATE 60 MG/ML 5ML CUP GTB SCH ×2 (10:16→21:55)
[2017-05-14] MEDS: BROMOCRIPTINE 2.5 MG TAB GTB SCH (10:16)
[2017-05-14] MEDS: L ACIDOPHIL/B LACTIS/B LONGUM CAPSULE PEG SCH (10:17)
[2017-05-14] MEDS: ASCORBIC ACID 250 MG TAB GTB SCH ×2 (10:17→21:56)
[2017-05-14] MEDS: HYDROCORTISONE 20 MG TAB GTB SCH (10:17)
[2017-05-14] MEDS: DESMOPRESSIN 0.1 MG TAB GTB SCH (10:17)
[2017-05-14] MEDS: POTASSIUM CHLORIDE (SR) 20 MEQ TAB PO SCH ×2 (10:17→21:56)
[2017-05-14] MEDS: FAMOTIDINE 20 MG TAB GTB SCH ×2 (10:17→22:06)
[2017-05-14] MEDS: OCULAR LUBRICANT 3.5 GM OPH OINT BOTH EYES SCH ×4 (10:18→22:08)
[2017-05-14] MEDS: ENOXAPARIN 60 MG/0.6 ML SYG SC SCH ×2 (10:27→21:58)
[2017-05-14 14:56] LABS: BASOPHIL # 0.1 10^3/ul (0.0-0.1); BASOPHILS % 0.9 % (0.0-2.0); EOSINOPHILS % 0.4 % (0.0-7.0); HEMOGLOBIN 8.6 g/dl (14.0-18.0); LYMPHOCYTES # 1.1 10^3/ul (0.8-2.9); LYMPHOCYTES % 14.6 % (15.0-51.0); MEAN CORPUSCULAR HEMOGLOBIN 27.9 pg (29.0-33.0); MEAN CORPUSCULAR HGB CONC 31.9 g/dl (32.0-37.0); MEAN CORPUSCULAR VOLUME 87.7 fl (82.0-101.0); MONOCYTE # 0.5 10^3/ul (0.3-0.9); MONOCYTES % 7.3 % (0.0-11.0); NEUTROPHIL # 5.6 10^3/ul (1.6-7.5); NEUTROPHILS % 76.1 % (39.0-77.0); PLATELET COUNT 249 10^3/UL (140-415); RED BLOOD COUNT 3.08 10^6/ul (4.70-6.10); RED CELL DISTRIBUTION WIDTH 13.6 % (11.5-14.5); WHITE BLOOD COUNT 7.4 10^3/ul (4.8-10.8)
[2017-05-14 14:58] LABS: CALCIUM 9.7 mg/dl (8.4-10.2); CREATININE 0.39 mg/dl (0.61-1.24); POTASSIUM 3.7 mmol/L (3.5-5.1)
--- NOTE | 2017-05-14 16:06 | PN ---
Date/Time of Note Date/Time of Note DATE: 05/14/17 TIME: 16:04 Assessment/Plan VTE Prophylaxis VTE Prophylaxis Intervention: SCD's Lines/Catheters IV C[facility]ter Type (from [facility] PICC Line Central line still needed: Yes Urinary Cath still in place: No Assessment/Plan Chief Complaint/Hosp Course Patient continues to have diarrhea however improved in frequency, low-grade fever. Monitor electrolytes daily. Assessment/Plan - C. difficile colitis, continue vancomycin via G-tube - Septic shock due to bilateral pneumonia and UTI, resolving. Continue antibiotics per ID. Dr Brown is following in infection disease consultation. 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 Continue Lovenox. - Acute kidney injury, resolving. - Hypernatremia, resolved. Dr Sorensen is following in nephrology consultation. - Hypokalemia, continue k protocol. - Pancytopenia most likely secondary to sepsis - Dysphagia with PEG. Continue tube G-tube feeding - VDRF with tracheostomy - Hydrocephalus, status post PROFESSIONAL FIGHTER shunt. - Polyuria, improving. Further recommendations based on clinical course. Plan of care discussed with Dr. Dozier Problems: Exam/Review of Systems Vital Signs Vitals Vital Signs Date Time Temp Pulse Resp B/P Pulse Ox O2 Delivery O2 Flow Rate FiO2 05/14/17 15:27 98.7 94 20 146/82 100 05/14/17 13:20 30 05/13/17 15:41 Mechanical Ventilator Intake and Output 05/13/17 05/13/17 05/14/17 15:00 23:00 07:00 Intake Total 1200 ml 1000 ml Output Total 1000 ml 1200 ml Balance 200 ml -200 ml Exam Constitutional: non-verbal Neck: other (Tracheostomy), supple Respiratory: diminished breath sounds Cardiovascular: nl pulses Gastrointestinal: non-tender, other (G-tube), soft Extremities: normal pulses Neurological: lethargic Results Result Diagram: 05/14/17 1427 05/14/17 1427 Results 24 hrs Laboratory Tests Test 05/14/17 14:27 White Blood Count 7.4 # Red Blood Count 3.08 L Hemoglobin 8.6 L Hematocrit 27.0 L Mean Corpuscular Volume 87.7 Mean Corpuscular Hemoglobin 27.9 L Mean Corpuscular Hemoglobin Concent 31.9 L Red Cell Distribution Width 13.6 Platelet Count 249 Mean Platelet Volume 11.0 H Neutrophils % 76.1 Lymphocytes % 14.6 L Monocytes % 7.3 Eosinophils % 0.4 Basophils % 0.9 Nucleated Red Blood Cells % 0.0 Neutrophils # 5.6 Lymphocytes # 1.1 Monocytes # 0.5 Eosinophils # 0.0 Basophils # 0.1 Nucleated Red Blood Cells # 0.0 Sodium Level 136 Potassium Level 3.7 Chloride Level 96 L Carbon Dioxide Level 31 Anion Gap 13 Blood Urea Nitrogen 7 Creatinine 0.39 L Glucose Level 115 Calcium Level 9.7 Vancomycin Level Trough 9.9 L Medications Medications Current Medications Acetaminophen (Tylenol Liquid) 650 mg Q4 PRN GTB PAIN AND OR ELEVATED TEMP Last administered on 05/14/17 03:14; Admin Dose 650 MG; Start 04/25/17 at 23: 00 Eye Lubricant (Akwa Oint) 1 applic QID BOTH EYES Last administered on 13:41; Admin Dose 1 APPLIC; Start 04/26/17 at 09:00 Bromocriptine Mesylate (Parlodel) 30 mg DAILY GTB Last administered on 10:16; Admin Dose 30 MG; Start 04/26/17 at 09:00 Chlorhexidine Gluconate (Peridex) 15 ml BID MM Last administered on 05/14/17 10:16; Admin Dose 15 ML; Start 04/26/17 at 09:00 Ferrous Sulfate (Feosol Liquid Cup) 300 mg BID GTB Last administered on 10:16; Admin Dose 300 MG; Start 04/26/17 at 09:00 Hydrocortisone (Cortef) 20 mg DAILY GTB Last administered on 05/14/17 10:17; Admin Dose 20 MG; Start 04/26/17 at 09:00 Ondansetron HCl (Zofran Tab) 4 mg Q8 PRN GTB NAUSEA AND/OR VOMITING; Start at 23:00 Lactobacillus Acidophilus (Florajen3 Capsule) 1 each DAILY PEG Last administered on 05/14/17 10:17; Admin Dose 1 EACH; Start 04/26/17 at 09:00 Ascorbic Acid (Vitamin C) 250 mg BID GTB Last administered on 05/14/17 10:17 ; Admin Dose 250 MG; Start 04/26/17 at 09:00 Famotidine (Pepcid) 20 mg BID GTB Last administered on 05/14/17 10:17; Admin Dose 20 MG; Start 04/26/17 at 09:00 Morphine Sulfate (morphine) 2 mg Q4H PRN IV PAIN Last administered on 14:46; Admin Dose 2 MG; Start 04/26/17 at 16:30 Posaconazole (Noxafil) 400 mg Q8 PO Last administered on 05/14/17 05:38; Admin Dose 400 MG; Start 04/30/17 at 22:00 Ergocalciferol (Drisdol Liquid (Ped)) 50,000 units Q7D GTB Last administered on 05/09/17 09:47; Admin Dose 50,000 UNITS; Start 05/02/17 at 09:30 Enoxaparin Sodium (Lovenox) 50 mg Q12 SC Last administered on 05/14/17 10:27 ; Admin Dose 50 MG; Start 05/03/17 at 09:30 Diphenoxylate HCl/ Atropine (Lomotil Liquid Cup) 5 ml Q6H PRN PO DIARRHEA; Start 05/03/17 at 18:00 Collagenase (Santyl) 1 applic DAILY TOP Last administered on 05/14/17 09:00; Admin Dose 1 APPLIC; Start 05/04/17 at 14:30 Desmopressin Acetate 0.05 mg 0.05 mg DAILY GTB Last administered on 05/14/17 10:17; Admin Dose 0.05 MG; Start 05/07/17 at 09:00 Acyclovir/Sodium Chloride (Zovirax/NS) 100 ml @ 100 mls/hr Q8 IVPB Last administered on 05/14/17 15:43; Admin Dose 100 MLS/HR; Start 05/07/17 at 14:00 Potassium Chloride 20 meq 20 meq BID PO Last administered on 05/14/17 10:17; Admin Dose 20 MEQ; Start 05/12/17 at 10:00 Meropenem/Sodium Chloride (Merrem 1 Gm/50 ml (Pmx)) 50 ml @ 100 mls/hr Q8H IVPB Last administered on 05/14/17 13:41; Admin Dose 100 MLS/HR; Start 05/12 at 13:00 Vancomycin HCl 250 mg 250 mg Q6 GTB Last administered on 05/14/17t 12:31; Admin Dose 250 MG; Start 05/13/17 at 12:00 Vancomycin HCl (Vancocin) 250 ml @ 125 mls/hr Q8H IVPB ; Start 05/14/17 at 16: 00 MANDIE DAVE May 14, 2017 16:06
--- NOTE | 2017-05-14 16:41 | CONS ---
Date/Time of Note Date/Time of Note DATE: 05/14/17 TIME: 16:41 Assessment/Plan Assessment/Plan Additional Assessment/Plan 1. Non Oliguric Acute kidney injury due to septic shock -Improved 2. Hypernaremia- resolved 3. Septic shock on levophed - Resolved 4. Acute on chronic resp failure s/p Tracheostomy- on ventilator, pulmonary has been following 5. H/o Fungal meningitis, currently comatose 6. H/O Right sided [employer] ENGINEER shunt 7. 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 Plan: Na 136 with DDAVP to 0.05 daily , K replacement protocol, continue NS with KCL at current rate ID, pulmonary has been following , on IV meropenem and IV acyclovir will follow up Consultation Date/Type/Reason Admit Date/Time Apr 25, 2017 at 12:31 Initial Consult Date 04/25/17 Type of Consultation: NEPHROLOGY Referring Provider: HELEN CASTELLANO MD Exam/Review of Systems Vital Signs Vitals Vital Signs Date Time Temp Pulse Resp B/P Pulse Ox O2 Delivery O2 Flow Rate FiO2 05/14/17 16:27 105 05/14/17 15:27 98.7 20 146/82 100 05/14/17 13:20 30 05/13/17 15:41 Mechanical Ventilator Intake and Output 05/13/17 05/13/17 05/14/17 15:00 23:00 07:00 Intake Total 1200 ml 1000 ml Output Total 1000 ml 1200 ml Balance 200 ml -200 ml Exam Constitutional: non-verbal Neck: other (Tracheostomy), supple Respiratory: diminished breath sounds Cardiovascular: nl pulses Gastrointestinal: non-tender, other (G-tube), soft Extremities: normal pulses Results Result Diagram: 05/14/17 1427 05/14/17 1427 Results 24 hrs Laboratory Tests Test 05/14/17 14:27 White Blood Count 7.4 # Red Blood Count 3.08 L Hemoglobin 8.6 L Hematocrit 27.0 L Mean Corpuscular Volume 87.7 Mean Corpuscular Hemoglobin 27.9 L Mean Corpuscular Hemoglobin Concent 31.9 L Red Cell Distribution Width 13.6 Platelet Count 249 Mean Platelet Volume 11.0 H Neutrophils % 76.1 Lymphocytes % 14.6 L Monocytes % 7.3 Eosinophils % 0.4 Basophils % 0.9 Nucleated Red Blood Cells % 0.0 Neutrophils # 5.6 Lymphocytes # 1.1 Monocytes # 0.5 Eosinophils # 0.0 Basophils # 0.1 Nucleated Red Blood Cells # 0.0 Sodium Level 136 Potassium Level 3.7 Chloride Level 96 L Carbon Dioxide Level 31 Anion Gap 13 Blood Urea Nitrogen 7 Creatinine 0.39 L Glucose Level 115 Calcium Level 9.7 Vancomycin Level Trough 9.9 L Medications Medications Current Medications Acetaminophen (Tylenol Liquid) 650 mg Q4 PRN GTB PAIN AND OR ELEVATED TEMP Last administered on 05/14/17 03:14; Admin Dose 650 MG; Start 04/25/17 at 23: 00 Eye Lubricant (Akwa Oint) 1 applic QID BOTH EYES Last administered on 13:41; Admin Dose 1 APPLIC; Start 04/26/17 at 09:00 Bromocriptine Mesylate (Parlodel) 30 mg DAILY GTB Last administered on 10:16; Admin Dose 30 MG; Start 04/26/17 at 09:00 Chlorhexidine Gluconate (Peridex) 15 ml BID MM Last administered on 05/14/17 10:16; Admin Dose 15 ML; Start 04/26/17 at 09:00 Ferrous Sulfate (Feosol Liquid Cup) 300 mg BID GTB Last administered on 10:16; Admin Dose 300 MG; Start 04/26/17 at 09:00 Hydrocortisone (Cortef) 20 mg DAILY GTB Last administered on 05/14/17 10:17; Admin Dose 20 MG; Start 04/26/17 at 09:00 Ondansetron HCl (Zofran Tab) 4 mg Q8 PRN GTB NAUSEA AND/OR VOMITING; Start at 23:00 Lactobacillus Acidophilus (Florajen3 Capsule) 1 each DAILY PEG Last administered on 05/14/17 10:17; Admin Dose 1 EACH; Start 04/26/17 at 09:00 Ascorbic Acid (Vitamin C) 250 mg BID GTB Last administered on 05/14/17 10:17 ; Admin Dose 250 MG; Start 04/26/17 at 09:00 Famotidine (Pepcid) 20 mg BID GTB Last administered on 05/14/17 10:17; Admin Dose 20 MG; Start 04/26/17 at 09:00 Morphine Sulfate (morphine) 2 mg Q4H PRN IV PAIN Last administered on 14:46; Admin Dose 2 MG; Start 04/26/17 at 16:30 Posaconazole (Noxafil) 400 mg Q8 PO Last administered on 05/14/17 05:38; Admin Dose 400 MG; Start 04/30/17 at 22:00 Ergocalciferol (Drisdol Liquid (Ped)) 50,000 units Q7D GTB Last administered on 05/09/17 09:47; Admin Dose 50,000 UNITS; Start 05/02/17 at 09:30 Enoxaparin Sodium (Lovenox) 50 mg Q12 SC Last administered on 05/14/17 10:27 ; Admin Dose 50 MG; Start 05/03/17 at 09:30 Diphenoxylate HCl/ Atropine (Lomotil Liquid Cup) 5 ml Q6H PRN PO DIARRHEA; Start 05/03/17 at 18:00 Collagenase (Santyl) 1 applic DAILY TOP Last administered on 05/14/17 09:00; Admin Dose 1 APPLIC; Start 05/04/17 at 14:30 Desmopressin Acetate 0.05 mg 0.05 mg DAILY GTB Last administered on 05/14/17 10:17; Admin Dose 0.05 MG; Start 05/07/17 at 09:00 Acyclovir/Sodium Chloride (Zovirax/NS) 100 ml @ 100 mls/hr Q8 IVPB Last administered on 05/14/17 15:43; Admin Dose 100 MLS/HR; Start 05/07/17 at 14:00 Potassium Chloride 20 meq 20 meq BID PO Last administered on 05/14/17 10:17; Admin Dose 20 MEQ; Start 05/12/17 at 10:00 Meropenem/Sodium Chloride (Merrem 1 Gm/50 ml (Pmx)) 50 ml @ 100 mls/hr Q8H IVPB Last administered on 05/14/17 13:41; Admin Dose 100 MLS/HR; Start 05/12 at 13:00 Vancomycin HCl 250 mg 250 mg Q6 GTB Last administered on 05/14/17 12:31; Admin Dose 250 MG; Start 05/13/17 at 12:00 Vancomycin HCl (Vancocin) 250 ml @ 125 mls/hr Q8H IVPB ; Start 05/14/17 at 16: 00 FARHAT RUBIO MD May 14, 2017 16:41
[2017-05-14] MEDS: VANCOMYCIN 1 GM in NS 250 ML IVPB SCH (17:15)
--- NOTE | 2017-05-14 17:32 | PN ---
Date/Time of Note Date/Time of Note DATE: 05/14/17 TIME: 17:32 Assessment/Plan VTE Prophylaxis VTE Prophylaxis Intervention: SCD's Lines/Catheters IV Catheter Type (from Nrs): PICC Line Central line still needed: No Urinary Cath still in place: No Assessment/Plan Assessment/Plan Disseminated coccidiomycosis Pneumonia UTI Vent dependent respiratory failure Encephalopathy DVT -Blood pressure trend overall stable. Patient with DVT on anticoagulation. Fluids and electrolyte management as per our nephrology colleagues. No new cardiac orders at the current fawn Subjective 24 Hr Interval Summary Free Text/Dictation The patient with no ahgne Exam/Review of Systems Vital Signs Vitals Vital Signs Date Time Temp Pulse Resp B/P Pulse Ox O2 Delivery O2 Flow Rate FiO2 05/14/17 16:27 105 05/14/17 15:40 16 99 30 05/14/17 15:27 98.7 146/82 05/13/17 15:41 Mechanical Ventilator Intake and Output 05/13/17 05/13/17 05/14/17 15:00 23:00 07:00 Intake Total 1200 ml 1000 ml Output Total 1000 ml 1200 ml Balance 200 ml -200 ml Results Result Diagram: 05/14/17 1427 05/14/17 1427 Results 24 hrs Laboratory Tests Test 05/14/17 14:27 White Blood Count 7.4 # Red Blood Count 3.08 L Hemoglobin 8.6 L Hematocrit 27.0 L Mean Corpuscular Volume 87.7 Mean Corpuscular Hemoglobin 27.9 L Mean Corpuscular Hemoglobin Concent 31.9 L Red Cell Distribution Width 13.6 Platelet Count 249 Mean Platelet Volume 11.0 H Neutrophils % 76.1 Lymphocytes % 14.6 L Monocytes % 7.3 Eosinophils % 0.4 Basophils % 0.9 Nucleated Red Blood Cells % 0.0 Neutrophils # 5.6 Lymphocytes # 1.1 Monocytes # 0.5 Eosinophils # 0.0 Basophils # 0.1 Nucleated Red Blood Cells # 0.0 Sodium Level 136 Potassium Level 3.7 Chloride Level 96 L Carbon Dioxide Level 31 Anion Gap 13 Blood Urea Nitrogen 7 Creatinine 0.39 L Glucose Level 115 Calcium Level 9.7 Vancomycin Level Trough 9.9 L Medications Medications Current Medications Acetaminophen (Tylenol Liquid) 650 mg Q4 PRN GTB PAIN AND OR ELEVATED TEMP Last administered on 05/14/17t 03:14; Admin Dose 650 MG; Start 04/25/17 at 23: 00 Eye Lubricant (Akwa Oint) 1 applic QID BOTH EYES Last administered on 17:16; Admin Dose 1 APPLIC; Start 04/26/17 at 09:00 Bromocriptine Mesylate (Parlodel) 30 mg DAILY GTB Last administered on 10:16; Admin Dose 30 MG; Start 04/26/17 at 09:00 Chlorhexidine Gluconate (Peridex) 15 ml BID MM Last administered on 05/14/17 10:16; Admin Dose 15 ML; Start 04/26/17 at 09:00 Ferrous Sulfate (Feosol Liquid Cup) 300 mg BID GTB Last administered on 10:16; Admin Dose 300 MG; Start 04/26/17 at 09:00 Hydrocortisone (Cortef) 20 mg DAILY GTB Last administered on 05/14/17 10:17; Admin Dose 20 MG; Start 04/26/17 at 09:00 Ondansetron HCl (Zofran Tab) 4 mg Q8 PRN GTB NAUSEA AND/OR VOMITING; Start at 23:00 Lactobacillus Acidophilus (Florajen3 Capsule) 1 each DAILY PEG Last administered on 05/14/17 10:17; Admin Dose 1 EACH; Start 04/26/17 at 09:00 Ascorbic Acid (Vitamin C) 250 mg BID GTB Last administered on 05/14/17 10:17 ; Admin Dose 250 MG; Start 04/26/17 at 09:00 Famotidine (Pepcid) 20 mg BID GTB Last administered on 05/14/17 10:17; Admin Dose 20 MG; Start 04/26/17 at 09:00 Morphine Sulfate (morphine) 2 mg Q4H PRN IV PAIN Last administered on 14:46; Admin Dose 2 MG; Start 04/26/17 at 16:30 Posaconazole (Noxafil) 400 mg Q8 PO Last administered on 05/14/17 05:38; Admin Dose 400 MG; Start 04/30/17 at 22:00 Ergocalciferol (Drisdol Liquid (Ped)) 50,000 units Q7D GTB Last administered on 05/09/17 09:47; Admin Dose 50,000 UNITS; Start 05/02/17 at 09:30 Enoxaparin Sodium (Lovenox) 50 mg Q12 SC Last administered on 05/14/17 10:27 ; Admin Dose 50 MG; Start 05/03/17 at 09:30 Diphenoxylate HCl/ Atropine (Lomotil Liquid Cup) 5 ml Q6H PRN PO DIARRHEA; Start 05/03/17 at 18:00 Collagenase (Santyl) 1 applic DAILY TOP Last administered on 05/14/17 09:00; Admin Dose 1 APPLIC; Start 05/04/17 at 14:30 Desmopressin Acetate 0.05 mg 0.05 mg DAILY GTB Last administered on 05/14/17 10:17; Admin Dose 0.05 MG; Start 05/07/17 at 09:00 Acyclovir/Sodium Chloride (Zovirax/NS) 100 ml @ 100 mls/hr Q8 IVPB Last administered on 05/14/17 15:43; Admin Dose 100 MLS/HR; Start 05/07/17 at 14:00 Potassium Chloride 20 meq 20 meq BID PO Last administered on 05/14/17 10:17; Admin Dose 20 MEQ; Start 05/12/17 at 10:00 Meropenem/Sodium Chloride (Merrem 1 Gm/50 ml (Pmx)) 50 ml @ 100 mls/hr Q8H IVPB Last administered on 05/14/17 13:41; Admin Dose 100 MLS/HR; Start 05/12 at 13:00 Vancomycin HCl 250 mg 250 mg Q6 GTB Last administered on 05/14/17 12:31; Admin Dose 250 MG; Start 05/13/17 at 12:00 Vancomycin HCl (Vancocin) 250 ml @ 125 mls/hr Q8H IVPB Last administered on 17:15; Admin Dose 125 MLS/HR; Start 05/14/17 at 16:00 ORI SESAY MD May 14, 2017 17:32
--- NOTE | 2017-05-14 22:41 | CONS ---
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 CT shows normal ventricular size, multiple areas on encephalomalacia. No evidence shunt malfunction. Persistent fevers. Can tap shunt if CSF sample requested. Full consult to follow. 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 CSF specimen request via shunt tap. Spoke mother. Discussed risk, benefits and alternative of shunt tap with mother who consented. Stated that patient has had shunt tap before at [facility]. Patient on full dose Lovenox but unlikely risk significant bleed or hematoma from shunt tap to recommend reversal over risk of PE. Mother agreed. Consultation Date/Type/Reason Admit Date/Time Apr 25, 2017 at 12:31 Initial Consult Date 05/14/17 Type of Consultation: Neurosurgery Referring Provider: HELEN CASTELLANO MD 24 HR Interval Summary Free Text/Dictation remains in vegetative state. Neurologically unchanged. Exam/Review of Systems Vital Signs Vitals Vital Signs Date Time Temp Pulse Resp B/P Pulse Ox O2 Delivery O2 Flow Rate FiO2 05/14/17 20:45 102 05/14/17 20:00 99.7 16 127/81 97 05/14/17 17:25 30 05/13/17 15:41 Mechanical Ventilator Intake and Output 05/13/17 05/13/17 05/14/17 15:00 23:00 07:00 Intake Total 1200 ml 1000 ml Output Total 1000 ml 1200 ml Balance 200 ml -200 ml Exam Constitutional: alert, non-verbal Extremities: other (vegetative state. opens eyes to noxious stim. Does not follow commands. Rare volitional minimal extremity movement.) Results Result Diagram: 05/14/17 1427 05/14/17 1427 Results 24 hrs Laboratory Tests Test 05/14/17 14:27 White Blood Count 7.4 # Red Blood Count 3.08 L Hemoglobin 8.6 L Hematocrit 27.0 L Mean Corpuscular Volume 87.7 Mean Corpuscular Hemoglobin 27.9 L Mean Corpuscular Hemoglobin Concent 31.9 L Red Cell Distribution Width 13.6 Platelet Count 249 Mean Platelet Volume 11.0 H Neutrophils % 76.1 Lymphocytes % 14.6 L Monocytes % 7.3 Eosinophils % 0.4 Basophils % 0.9 Nucleated Red Blood Cells % 0.0 Neutrophils # 5.6 Lymphocytes # 1.1 Monocytes # 0.5 Eosinophils # 0.0 Basophils # 0.1 Nucleated Red Blood Cells # 0.0 Sodium Level 136 Potassium Level 3.7 Chloride Level 96 L Carbon Dioxide Level 31 Anion Gap 13 Blood Urea Nitrogen 7 Creatinine 0.39 L Glucose Level 115 Calcium Level 9.7 Vancomycin Level Trough 9.9 L Medications Medications Current Medications Acetaminophen (Tylenol Liquid) 650 mg Q4 PRN GTB PAIN AND OR ELEVATED TEMP Last administered on 05/14/17 03:14; Admin Dose 650 MG; Start 04/25/17 at 23: 00 Eye Lubricant (Akwa Oint) 1 applic QID BOTH EYES Last administered on 22:08; Admin Dose 1 APPLIC; Start 04/26/17 at 09:00 Bromocriptine Mesylate (Parlodel) 30 mg DAILY GTB Last administered on 10:16; Admin Dose 30 MG; Start 04/26/17 at 09:00 Chlorhexidine Gluconate (Peridex) 15 ml BID MM Last administered on 05/14/17 21:55; Admin Dose 15 ML; Start 04/26/17 at 09:00 Ferrous Sulfate (Feosol Liquid Cup) 300 mg BID GTB Last administered on 21:55; Admin Dose 300 MG; Start 04/26/17 at 09:00 Hydrocortisone (Cortef) 20 mg DAILY GTB Last administered on 05/14/17 10:17; Admin Dose 20 MG; Start 04/26/17 at 09:00 Ondansetron HCl (Zofran Tab) 4 mg Q8 PRN GTB NAUSEA AND/OR VOMITING; Start at 23:00 Lactobacillus Acidophilus (Florajen3 Capsule) 1 each DAILY PEG Last administered on 05/14/17 10:17; Admin Dose 1 EACH; Start 04/26/17 at 09:00 Ascorbic Acid (Vitamin C) 250 mg BID GTB Last administered on 05/14/17 21:56 ; Admin Dose 250 MG; Start 04/26/17 at 09:00 Famotidine (Pepcid) 20 mg BID GTB Last administered on 05/14/17 22:06; Admin Dose 20 MG; Start 04/26/17 at 09:00 Morphine Sulfate (morphine) 2 mg Q4H PRN IV PAIN Last administered on 14:46; Admin Dose 2 MG; Start 04/26/17 at 16:30 Posaconazole (Noxafil) 400 mg Q8 PO Last administered on 05/14/17 21:56; Admin Dose 400 MG; Start 04/30/17 at 22:00 Ergocalciferol (Drisdol Liquid (Ped)) 50,000 units Q7D GTB Last administered on 05/09/17 09:47; Admin Dose 50,000 UNITS; Start 05/02/17 at 09:30 Enoxaparin Sodium (Lovenox) 50 mg Q12 SC Last administered on 05/14/17 21:58 ; Admin Dose 50 MG; Start 05/03/17 at 09:30 Diphenoxylate HCl/ Atropine (Lomotil Liquid Cup) 5 ml Q6H PRN PO DIARRHEA; Start 05/03/17 at 18:00 Collagenase (Santyl) 1 applic DAILY TOP Last administered on 05/14/17 09:00; Admin Dose 1 APPLIC; Start 05/04/17 at 14:30 Desmopressin Acetate 0.05 mg 0.05 mg DAILY GTB Last administered on 05/14/17 10:17; Admin Dose 0.05 MG; Start 05/07/17 at 09:00 Acyclovir/Sodium Chloride (Zovirax/NS) 100 ml @ 100 mls/hr Q8 IVPB Last administered on 05/14/17 21:55; Admin Dose 100 MLS/HR; Start 05/07/17 at 14:00 Potassium Chloride 20 meq 20 meq BID PO Last administered on 05/14/17 21:56; Admin Dose 20 MEQ; Start 05/12/17 at 10:00 Meropenem/Sodium Chloride (Merrem 1 Gm/50 ml (Pmx)) 50 ml @ 100 mls/hr Q8H IVPB Last administered on 05/14/17 21:55; Admin Dose 100 MLS/HR; Start 05/12 at 13:00 Vancomycin HCl 250 mg 250 mg Q6 GTB Last administered on 05/14/17 18:52; Admin Dose 250 MG; Start 05/13/17 at 12:00 Vancomycin HCl (Vancocin) 250 ml @ 125 mls/hr Q8H IVPB Last administered on t 17:15; Admin Dose 125 MLS/HR; Start 05/14/17 at 16:00 NANDO YAO MD May 14, 2017 22:41
[2017-05-14 23:45] LABS: CSF MN% 90.9 %; CSF PMN% 9.1 %
[2017-05-14 23:47] LABS: CSF COLOR COLORLESS; CSF VOLUME 2.5 ml; CSF#TUBE COUNT TUBE#2; CSF#TUBES REC'D 2
[2017-05-14 23:57] LABS: GLUCOSE,CSF 76 mg/dl (50-80)
[2017-05-15] VITALS (26 sets, daily range): BP systolic 93–132; BP diastolic 52–79; PULSE 71–107; RESP 16–20
[2017-05-15] MEDS: VANCOMYCIN 1 GM in NS 250 ML IVPB SCH ×2 (00:13→08:00)
[2017-05-15] MEDS: VANCOMYCIN HCL 250 MG/5ML POSYG GTB SCH ×4 (00:13→18:21)
[2017-05-15] MEDS: ACYCLOVIR 500 MG in SOD CHLORIDE 0.9% 100 ML IVPB SCH ×3 (05:46→21:44)
[2017-05-15] MEDS: MEROPENEM 1 GM/50ML(PMX) 50 ML IVPB SCH ×3 (05:46→21:43)
[2017-05-15] MEDS: POSACONAZOLE PO SCH ×2 (05:48→12:32)
[2017-05-15 06:25] LABS: BASOPHIL # 0.1 10^3/ul (0.0-0.1); BASOPHILS % 0.9 % (0.0-2.0); EOSINOPHILS % 0.7 % (0.0-7.0); HEMATOCRIT 25.3 % (42.0-52.0); HEMOGLOBIN 8.3 g/dl (14.0-18.0); LYMPHOCYTES # 0.8 10^3/ul (0.8-2.9); LYMPHOCYTES % 13.1 % (15.0-51.0); MEAN CORPUSCULAR HGB CONC 32.8 g/dl (32.0-37.0); MEAN CORPUSCULAR VOLUME 88.5 fl (82.0-101.0); MEAN PLATELET VOLUME 11.5 fl (7.4-10.4); MONOCYTE # 0.8 10^3/ul (0.3-0.9); MONOCYTES % 14.5 % (0.0-11.0); NEUTROPHILS % 69.9 % (39.0-77.0); PLATELET COUNT 252 10^3/UL (140-415); RED BLOOD COUNT 2.86 10^6/ul (4.70-6.10); RED CELL DISTRIBUTION WIDTH 13.5 % (11.5-14.5); WHITE BLOOD COUNT 5.8 10^3/ul (4.8-10.8)
[2017-05-15 06:59] LABS: CALCIUM 9.2 mg/dl (8.4-10.2); CREATININE 0.38 mg/dl (0.61-1.24)
[2017-05-15] MEDS: COLLAGENASE 30 GM TUBE TOP SCH (09:24)
[2017-05-15] MEDS: DESMOPRESSIN 0.1 MG TAB GTB SCH (09:25)
[2017-05-15] MEDS: HYDROCORTISONE 20 MG TAB GTB SCH (09:25)
[2017-05-15] MEDS: OCULAR LUBRICANT 3.5 GM OPH OINT BOTH EYES SCH ×4 (09:25→21:43)
[2017-05-15] MEDS: FAMOTIDINE 20 MG TAB GTB SCH ×2 (09:25→21:44)
[2017-05-15] MEDS: POTASSIUM CHLORIDE (SR) 20 MEQ TAB PO SCH ×2 (09:25→21:44)
[2017-05-15] MEDS: CHLORHEXIDINE GLUCONATE 15 ML UD CUP MM SCH ×2 (09:25→21:44)
[2017-05-15] MEDS: L ACIDOPHIL/B LACTIS/B LONGUM CAPSULE PEG SCH (09:25)
[2017-05-15] MEDS: FERROUS SULFATE 60 MG/ML 5ML CUP GTB SCH ×2 (09:25→21:44)
[2017-05-15] MEDS: BROMOCRIPTINE 2.5 MG TAB GTB SCH (09:26)
[2017-05-15] MEDS: ASCORBIC ACID 250 MG TAB GTB SCH ×2 (09:27→21:44)
[2017-05-15] MEDS: ENOXAPARIN 60 MG/0.6 ML SYG SC SCH ×2 (09:28→21:59)
--- NOTE | 2017-05-15 11:23 | PN ---
Date/Time of Note Date/Time of Note DATE: 05/15/17 TIME: 11:23 Assessment/Plan VTE Prophylaxis VTE Prophylaxis Intervention: other Lines/Catheters [facility] Line Central line still needed: Yes Urinary Cath still in place: No Assessment/Plan Chief Complaint/Hosp Course - C. difficile colitis, continue vancomycin via G-tube - Septic shock due to bilateral pneumonia and UTI, resolving. Continue antibiotics per ID. Dr Brown is following in infection disease consultation. 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 Continue Lovenox. - Acute kidney injury, resolving. - Hypernatremia, resolved. Dr Sorensen is following in nephrology consultation. - Hypokalemia, continue k protocol. - Pancytopenia most likely secondary to sepsis - Dysphagia with PEG. Continue tube G-tube feeding - VDRF with tracheostomy - Hydrocephalus, status post FLOOR COVERING PRINTER shunt. - Polyuria, improving. Problems: Subjective 24 Hr Interval Summary Free Text/Dictation Patient sedated, trach in place Exam/Review of Systems Vital Signs Vitals Vital Signs Date Time Temp Pulse Resp B/P Pulse Ox O2 Delivery O2 Flow Rate FiO2 05/15/17 11:04 98.6 95 18 108/64 98 05/15/17 09:04 30 05/13/17 15:41 Mechanical Ventilator Intake and Output 05/14/17 05/14/17 05/15/17 15:00 23:00 07:00 Intake Total 1200 ml 450 ml Output Total 1400 ml Balance -200 ml 450 ml Exam Constitutional: well developed Head: atraumatic, normocephalic Neck: supple Respiratory: clear to auscultation Cardiovascular: regular rate and rhythm Gastrointestinal: non-tender, soft Extremities: normal pulses Results Result Diagram: 05/15/17 0530 05/15/17 0540 Results 24 hrs Laboratory Tests Test 05/14/17 14:27 05/14/17 23:00 05/15/17 05:30 05/15/17 05:40 White Blood Count 7.4 # 5.8 # Red Blood Count 3.08 L 2.86 L Hemoglobin 8.6 L 8.3 L Hematocrit 27.0 L 25.3 L Mean Corpuscular Volume 87.7 88.5 Mean Corpuscular Hemoglobin 27.9 L 29.0 Mean Corpuscular Hemoglobin Concent 31.9 L 32.8 Red Cell Distribution Width 13.6 13.5 Platelet Count 249 252 Mean Platelet Volume 11.0 H 11.5 H Neutrophils % 76.1 69.9 Lymphocytes % 14.6 L 13.1 L Monocytes % 7.3 14.5 H Eosinophils % 0.4 0.7 Basophils % 0.9 0.9 Nucleated Red Blood Cells % 0.0 0.0 Neutrophils # 5.6 4.0 Lymphocytes # 1.1 0.8 Monocytes # 0.5 0.8 Eosinophils # 0.0 0.0 Basophils # 0.1 0.1 Nucleated Red Blood Cells # 0.0 0.0 Sodium Level 136 138 Potassium Level 3.7 3.0 L Chloride Level 96 L 99 Carbon Dioxide Level 31 31 Anion Gap 13 11 Blood Urea Nitrogen 7 7 Creatinine 0.39 L 0.38 L Glucose Level 115 110 Calcium Level 9.7 9.2 Vancomycin Level Trough 9.9 L CSF Tubes Submitted 2 CSF Volume 2.5 CSF Appearance CLEAR CSF Color COLORLESS CSF WBC 21663 *H CSF RBC 0 CSF Cell Count Tube # TUBE#2 CSF Mononuclear Cells % (Auto) 90.9 CSF Polynuclear WBCs (%) 9.1 CSF Glucose 76 CSF Total Protein 120 H Medications Medications Current Medications Acetaminophen (Tylenol Liquid) 650 mg Q4 PRN GTB PAIN AND OR ELEVATED TEMP Last administered on 05/14/17 03:14; Admin Dose 650 MG; Start 04/25/17 at 23: 00 Eye Lubricant (Akwa Oint) 1 applic QID BOTH EYES Last administered on 09:25; Admin Dose 1 APPLIC; Start 04/26/17 at 09:00 Bromocriptine Mesylate (Parlodel) 30 mg DAILY GTB Last administered on 09:26; Admin Dose 30 MG; Start 04/26/17 at 09:00 Chlorhexidine Gluconate (Peridex) 15 ml BID MM Last administered on 05/15/17 09:25; Admin Dose 15 ML; Start 04/26/17 at 09:00 Ferrous Sulfate (Feosol Liquid Cup) 300 mg BID GTB Last administered on 09:25; Admin Dose 300 MG; Start 04/26/17 at 09:00 Hydrocortisone (Cortef) 20 mg DAILY GTB Last administered on 05/15/17 09:25; Admin Dose 20 MG; Start 04/26/17 at 09:00 Ondansetron HCl (Zofran Tab) 4 mg Q8 PRN GTB NAUSEA AND/OR VOMITING; Start at 23:00 Lactobacillus Acidophilus (Florajen3 Capsule) 1 each DAILY PEG Last administered on 05/15/17 09:25; Admin Dose 1 EACH; Start 04/26/17 at 09:00 Ascorbic Acid (Vitamin C) 250 mg BID GTB Last administered on 05/15/17 09:27 ; Admin Dose 250 MG; Start 04/26/17 at 09:00 Famotidine (Pepcid) 20 mg BID GTB Last administered on 05/15/17 09:25; Admin Dose 20 MG; Start 04/26/17 at 09:00 Morphine Sulfate (morphine) 2 mg Q4H PRN IV PAIN Last administered on 14:46; Admin Dose 2 MG; Start 04/26/17 at 16:30 Posaconazole (Noxafil) 400 mg Q8 PO Last administered on 05/15/17 05:48; Admin Dose 400 MG; Start 04/30/17 at 22:00 Ergocalciferol (Drisdol Liquid (Ped)) 50,000 units Q7D GTB Last administered on 05/09/17 09:47; Admin Dose 50,000 UNITS; Start 05/02/17 at 09:30 Enoxaparin Sodium (Lovenox) 50 mg Q12 SC Last administered on 05/15/17 09:28 ; Admin Dose 50 MG; Start 05/03/17 at 09:30 Diphenoxylate HCl/ Atropine (Lomotil Liquid Cup) 5 ml Q6H PRN PO DIARRHEA; Start 05/03/17 at 18:00 Collagenase (Santyl) 1 applic DAILY TOP Last administered on 05/15/17 09:24; Admin Dose 1 APPLIC; Start 05/04/17 at 14:30 Desmopressin Acetate 0.05 mg 0.05 mg DAILY GTB Last administered on 05/15/17 09:25; Admin Dose 0.05 MG; Start 05/07/17 at 09:00 Acyclovir/Sodium Chloride (Zovirax/NS) 100 ml @ 100 mls/hr Q8 IVPB Last administered on 05/15/17 05:46; Admin Dose 100 MLS/HR; Start 05/07/17 at 14:00 Potassium Chloride 20 meq 20 meq BID PO Last administered on 05/15/17 09:25; Admin Dose 20 MEQ; Start 05/12/17 at 10:00 Meropenem/Sodium Chloride (Merrem 1 Gm/50 ml (Pmx)) 50 ml @ 100 mls/hr Q8H IVPB Last administered on 05/15/17 05:46; Admin Dose 100 MLS/HR; Start 05/12 at 13:00 Vancomycin HCl 250 mg 250 mg Q6 GTB Last administered on 05/15/17 05:46; Admin Dose 250 MG; Start 05/13/17 at 12:00 Vancomycin HCl (Vancocin) 250 ml @ 125 mls/hr Q8H IVPB Last administered on 08:00; Admin Dose 125 MLS/HR; Start 05/14/17 at 16:00 Miscellaneous Information (*Rx Drug Level Order Reminder*) VANCOMYCIN TROUGH AT 2300 ONCE ONCE XX ; Start 05/15/17 at 23:00; Stop 05/15/17 at 23:01 ANDREA JORGENSEN May 15, 2017 11:23
[2017-05-15] MEDS ORDERED: SOD CHLORIDE 0.9% 250 ML IV ONE (11:30)
[2017-05-15] MEDS ORDERED: MEPERIDINE 25 MG INJ IM PRN (11:30)
--- NOTE | 2017-05-15 11:45 | CONS ---
Date/Time of Note Date/Time of Note DATE: 05/15/17 TIME: 11:36 Assessment/Plan Assessment/Plan Chief Complaint/Hosp Course assessment/impression - possibly worsening coccidioides meningitis and/or superimposed meningitis due to another pathogen. CSF from the shunt on 05/15/2017 had: WBC 11,000 (91% mono , 9 % lymph), glu=76, cydhntk=940 (last LP on record at [facility] on 03/31/2017: WBC 4 33% PMNs, RBC 16, glu <10, protein >2,000) - h/o disseminated coccidioides mycosis infection, meningitis. - coccidioides CF 14:8 on 03/21/2017, CF 1:16 on 04/26/2017 - posaconazole trough level 0.32 on 04/27/2017, the dose was increased on 2016. The repeat level 0/37 on 05/07/2017 - CSF, last LP on record at [facility] on 03/31/2017: WBC 4 33% PMNs, RBC 16, glu <10, protein >2,000. - C diff colitis, recurrent - septic shock due to pneumonia and UTI - UTI due to ESBL+E. coli. Took pip/tazo and then meropenem - b/l pneumonia due to klebsiella, EBL+E. coli. - severe herpes labialis - s/p VPS placement - VDRF s/p tracheostomy - PEG dependet status - pancytopenia, due to septic shock on admission, improved - thrombocytopenia, improved recommendations - pending results: CSF (culture, VDRL, enterovirus PCR) - I requested that Dr. Sandoval collect more CSF for coccidioides compliment fixation, fungus culture, herpes simplex virus PCR, West Nile virus IgM/IgG, cryptococcus antigen, culture, cell count, protein, glucose. I asked Pt's RN Yadira to ask how much CSF will be needed to run all these tests. If needed, I recommend LP - re-start Ambisome with premedication (tylenol, benadryl, NS plus meperidine for rigor as needed) - continue posaconazole to 400 mg q8hrs (posaconazole trough level 0.32 on 2016, the dose was increased on 04/29/2017; will contact Dr. Moon at [facility] to discuss the treatment plan once repeat CSF is performed - continue meropenem (restart 05/09/2017-) for empiric meningitis treatment - continue IV acyclovir (05/07/2017-) for herpes labialis but also for possible herpes encephalitis - continue pGT vancomycin (05/07/2017-) for C diff colitis - d/c empiric IV vancomycin (05/12/2017-) - enteric and droplet contact precautions management d/w Pt's mother, Dr. Castellano, Dena Hays at main lab, Pt's RN Yadira the critical care time I took to care for this Pt today was from 0950 to 1145 Problems: Consultation Date/Type/Reason Admit Date/Time Apr 25, 2017 at 12:31 Initial Consult Date 04/25/17 Type of Consultation: ID Referring Provider: HELEN CASTELLANO MD 24 HR Interval Summary Subjective hx not possible: pt non-verbal Exam/Review of Systems Vital Signs Vitals Vital Signs Date Time Temp Pulse Resp B/P Pulse Ox O2 Delivery O2 Flow Rate FiO2 05/15/17 11:04 98.6 95 18 108/64 98 05/15/17 09:04 30 05/13/17 15:41 Mechanical Ventilator Intake and Output 05/14/17 05/14/17 05/15/17 15:00 23:00 07:00 Intake Total 1200 ml 450 ml Output Total 1400 ml Balance -200 ml 450 ml Exam Constitutional: frail, non-verbal Psych: confusion Head: atraumatic, normocephalic Eyes: nl conjunctiva, nl lids ENMT: other (herpetic lesions on the lower lip) Neck: other (trach) Respiratory: crackles/rales Cardiovascular: nl pulses, regular rate and rhythm Gastrointestinal: non-tender, other (GT), soft Musculoskeletal: nl extremities to inspection Extremities: No edema Neurological: lethargic, unresponsive Skin: nl turgor Results Result Diagram: 05/15/17 0530 05/15/17 0540 Results 24 hrs Laboratory Tests Test 05/14/17 14:27 05/14/17 23:00 05/15/17 05:30 05/15/17 05:40 White Blood Count 7.4 # 5.8 # Red Blood Count 3.08 L 2.86 L Hemoglobin 8.6 L 8.3 L Hematocrit 27.0 L 25.3 L Mean Corpuscular Volume 87.7 88.5 Mean Corpuscular Hemoglobin 27.9 L 29.0 Mean Corpuscular Hemoglobin Concent 31.9 L 32.8 Red Cell Distribution Width 13.6 13.5 Platelet Count 249 252 Mean Platelet Volume 11.0 H 11.5 H Neutrophils % 76.1 69.9 Lymphocytes % 14.6 L 13.1 L Monocytes % 7.3 14.5 H Eosinophils % 0.4 0.7 Basophils % 0.9 0.9 Nucleated Red Blood Cells % 0.0 0.0 Neutrophils # 5.6 4.0 Lymphocytes # 1.1 0.8 Monocytes # 0.5 0.8 Eosinophils # 0.0 0.0 Basophils # 0.1 0.1 Nucleated Red Blood Cells # 0.0 0.0 Sodium Level 136 138 Potassium Level 3.7 3.0 L Chloride Level 96 L 99 Carbon Dioxide Level 31 31 Anion Gap 13 11 Blood Urea Nitrogen 7 7 Creatinine 0.39 L 0.38 L Glucose Level 115 110 Calcium Level 9.7 9.2 Vancomycin Level Trough 9.9 L CSF Tubes Submitted 2 CSF Volume 2.5 CSF Appearance CLEAR CSF Color COLORLESS CSF WBC 08166 *H CSF RBC 0 CSF Cell Count Tube # TUBE#2 CSF Mononuclear Cells % (Auto) 90.9 CSF Polynuclear WBCs (%) 9.1 CSF Glucose 76 CSF Total Protein 120 H Medications Medications Current Medications Acetaminophen (Tylenol Liquid) 650 mg Q4 PRN GTB PAIN AND OR ELEVATED TEMP Last administered on 05/14/17 03:14; Admin Dose 650 MG; Start 04/25/17 at 23: 00 Eye Lubricant (Akwa Oint) 1 applic QID BOTH EYES Last administered on 09:25; Admin Dose 1 APPLIC; Start 04/26/17 at 09:00 Bromocriptine Mesylate (Parlodel) 30 mg DAILY GTB Last administered on 09:26; Admin Dose 30 MG; Start 04/26/17 at 09:00 Chlorhexidine Gluconate (Peridex) 15 ml BID MM Last administered on 05/15/17 09:25; Admin Dose 15 ML; Start 04/26/17 at 09:00 Ferrous Sulfate (Feosol Liquid Cup) 300 mg BID GTB Last administered on 09:25; Admin Dose 300 MG; Start 04/26/17 at 09:00 Hydrocortisone (Cortef) 20 mg DAILY GTB Last administered on 05/15/17 09:25; Admin Dose 20 MG; Start 04/26/17 at 09:00 Ondansetron HCl (Zofran Tab) 4 mg Q8 PRN GTB NAUSEA AND/OR VOMITING; Start at 23:00 Lactobacillus Acidophilus (Florajen3 Capsule) 1 each DAILY PEG Last administered on 05/15/17 09:25; Admin Dose 1 EACH; Start 04/26/17 at 09:00 Ascorbic Acid (Vitamin C) 250 mg BID GTB Last administered on 05/15/17 09:27 ; Admin Dose 250 MG; Start 04/26/17 at 09:00 Famotidine (Pepcid) 20 mg BID GTB Last administered on 05/15/17 09:25; Admin Dose 20 MG; Start 04/26/17 at 09:00 Morphine Sulfate (morphine) 2 mg Q4H PRN IV PAIN Last administered on 14:46; Admin Dose 2 MG; Start 04/26/17 at 16:30 Posaconazole (Noxafil) 400 mg Q8 PO Last administered on 05/15/17 05:48; Admin Dose 400 MG; Start 04/30/17 at 22:00 Ergocalciferol (Drisdol Liquid (Ped)) 50,000 units Q7D GTB Last administered on 05/09/17 09:47; Admin Dose 50,000 UNITS; Start 05/02/17 at 09:30 Enoxaparin Sodium (Lovenox) 50 mg Q12 SC Last administered on 05/15/17 09:28 ; Admin Dose 50 MG; Start 05/03/17 at 09:30 Diphenoxylate HCl/ Atropine (Lomotil Liquid Cup) 5 ml Q6H PRN PO DIARRHEA; Start 05/03/17 at 18:00 Collagenase (Santyl) 1 applic DAILY TOP Last administered on 05/15/17 09:24; Admin Dose 1 APPLIC; Start 05/04/17 at 14:30 Desmopressin Acetate 0.05 mg 0.05 mg DAILY GTB Last administered on 05/15/17 09:25; Admin Dose 0.05 MG; Start 05/07/17 at 09:00 Acyclovir/Sodium Chloride (Zovirax/NS) 100 ml @ 100 mls/hr Q8 IVPB Last administered on 05/15/17 05:46; Admin Dose 100 MLS/HR; Start 05/07/17 at 14:00 Potassium Chloride 20 meq 20 meq BID PO Last administered on 05/15/17 09:25; Admin Dose 20 MEQ; Start 05/12/17 at 10:00 Meropenem/Sodium Chloride (Merrem 1 Gm/50 ml (Pmx)) 50 ml @ 100 mls/hr Q8H IVPB Last administered on 05/15/17 05:46; Admin Dose 100 MLS/HR; Start 05/12 at 13:00 Vancomycin HCl 250 mg 250 mg Q6 GTB Last administered on 05/15/17 05:46; Admin Dose 250 MG; Start 05/13/17 at 12:00 Vancomycin HCl (Vancocin) 250 ml @ 125 mls/hr Q8H IVPB Last administered on 08:00; Admin Dose 125 MLS/HR; Start 05/14/17 at 16:00 Miscellaneous Information (*Rx Drug Level Order Reminder*) VANCOMYCIN TROUGH AT 2300 ONCE ONCE XX ; Start 05/15/17 at 23:00; Stop 05/15/17 at 23:01 ELENI EVANS M.D. May 15, 2017 11:45
--- NOTE | 2017-05-15 12:55 | SP ---
DATE OF PROCEDURE: 05/14/2017 PREOPERATIVE DIAGNOSES: 1. History of coccidioides meningitis. 2. Persistent vegetative state. 3. History of hydrocephalus status post METAL PAINTER shunt. 4. Fevers. POSTOPERATIVE DIAGNOSES: 1. History of coccidioides meningitis. 2. Persistent vegetative state. 3. History of hydrocephalus status post METAL PAINTER shunt. 4. Fevers. PROCEDURE: Ventricular peritoneal shunt tap. SURGEON: Dr. Mohan Yao. NUCLEAR PHYSICIST: None. ANESTHESIA: None. SPECIMEN: CSF. COMPLICATIONS: None. INDICATIONS: The patient is a 27-year-old male with history of coccidioides meningitis that left him in a persistent vegetative state. The patient has had peristent fevers and has a history of METAL PAINTER shunt. Because of the fevers, collection of CSF was requested by Infectious Disease service. I discussed the risks, benefits and alternatives with the patient's mother who elected for the procedure. DESCRIPTION OF PROCEDURE: The patient's right frontal ventricular peritoneal shunt reservoir was thoroughly prepped. A 25 gauge needle was used to access the shunt and draw forth CSF. Although the shunt pump refilled well, it refilled slowly and I was able to obtain 3 mL of clear colorless CSF. The needle was removed and pressure applied for hemostasis. The shunt was still pumped and refilled after the procedure. There is no evidence of complication. Specimen was sent for the laboratory requested by Infectious Disease service. Dictated By: MOHAN YAO MD, [id number]/JASMYN Conf#: [id number] DID#: [id number]
[2017-05-15] MEDS ORDERED: SODIUM CHLORIDE 0.9% 1L BAG IV* SCH (13:00)
[2017-05-15] MEDS ORDERED: ACETAMINOPHEN 500 MG TAB PO SCH (13:00)
[2017-05-15] MEDS ORDERED: DIPHENHYDRAMINE 50 MG INJ IV SCH (13:00)
--- NOTE | 2017-05-15 13:05 | CONS ---
Date/Time of Note Date/Time of Note DATE: 05/15/17 TIME: 12:58 Assessment/Plan Assessment/Plan Additional Assessment/Plan CHEMICAL CODE 1. Hypokalemia- replace K, bmp am 1. Non Oliguric Acute kidney injury due to septic shock -Improved 2. Hypernatremia- resolved 3. Septic shock on Levophed - Resolved 4. Acute on chronic resp failure s/p Tracheostomy- on ventilator, pulmonary has been following 5. H/o Fungal meningitis, currently comatose 6. H/O Right sided MARKET RESEARCH ASSISTANT shunt 7. H/o G tube placement 8. [facility] 9. 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 Plan:- Paln for MARKET RESEARCH ASSISTANT shunt tap again by neurosx tomorrow- for fluid cultures -Na 138 with DDAVP to 0.05 daily , K replacement protocol, continue NS with KCL at current rate -ID, pulmonary has been following , on IV meropenem and IV acyclovir -will follow up -DW Dr Mar Sorensen Consultation Date/Type/Reason Admit Date/Time Apr 25, 2017 at 12:31 Initial Consult Date 04/25/17 Type of Consultation: NEPHROOGY Referring Provider: HELEN CASTELLANO MD 24 HR Interval Summary Free Text/Dictation - remains on trach to vent, sp VPS tap- ID follows, - Paln for MARKET RESEARCH ASSISTANT shunt tap again by neurosx tomorrow- for fluid cultures - BUN/Cr- 7/38 today. K is low- will replace , fu bmp am - DW staff Subjective hx not possible: pt non-verbal, pt critical status Constitutional: requiring IVF, requiring O2 Exam/Review of Systems Vital Signs Vitals Vital Signs Date Time Temp Pulse Resp B/P Pulse Ox O2 Delivery O2 Flow Rate FiO2 05/15/17 12:51 93 05/15/17 11:04 98.6 18 108/64 98 05/15/17 09:04 30 05/13/17 15:41 Mechanical Ventilator Intake and Output 05/14/17 05/14/17 05/15/17 15:00 23:00 07:00 Intake Total 1200 ml 450 ml Output Total 1400 ml Balance -200 ml 450 ml Exam Constitutional: frail, non-verbal Psych: nl mood/affect Head: other (sp right sided MARKET RESEARCH ASSISTANT shunt placement- no erythema, edema, drainage ) Cardiovascular: other (S1S2) Gastrointestinal: other (Gt intact), soft Musculoskeletal: muscle weakness Extremities: normal pulses Neurological: unresponsive Results Result Diagram: 05/15/17 0530 05/15/17 0540 Results 24 hrs Laboratory Tests Test 05/14/17 14:27 05/14/17 23:00 05/15/17 05:30 05/15/17 05:40 White Blood Count 7.4 # 5.8 # Red Blood Count 3.08 L 2.86 L Hemoglobin 8.6 L 8.3 L Hematocrit 27.0 L 25.3 L Mean Corpuscular Volume 87.7 88.5 Mean Corpuscular Hemoglobin 27.9 L 29.0 Mean Corpuscular Hemoglobin Concent 31.9 L 32.8 Red Cell Distribution Width 13.6 13.5 Platelet Count 249 252 Mean Platelet Volume 11.0 H 11.5 H Neutrophils % 76.1 69.9 Lymphocytes % 14.6 L 13.1 L Monocytes % 7.3 14.5 H Eosinophils % 0.4 0.7 Basophils % 0.9 0.9 Nucleated Red Blood Cells % 0.0 0.0 Neutrophils # 5.6 4.0 Lymphocytes # 1.1 0.8 Monocytes # 0.5 0.8 Eosinophils # 0.0 0.0 Basophils # 0.1 0.1 Nucleated Red Blood Cells # 0.0 0.0 Sodium Level 136 138 Potassium Level 3.7 3.0 L Chloride Level 96 L 99 Carbon Dioxide Level 31 31 Anion Gap 13 11 Blood Urea Nitrogen 7 7 Creatinine 0.39 L 0.38 L Glucose Level 115 110 Calcium Level 9.7 9.2 Vancomycin Level Trough 9.9 L CSF Tubes Submitted 2 CSF Volume 2.5 CSF Appearance CLEAR CSF Color COLORLESS CSF WBC 17430 *H CSF RBC 0 CSF Cell Count Tube # TUBE#2 CSF Mononuclear Cells % (Auto) 90.9 CSF Polynuclear WBCs (%) 9.1 CSF Glucose 76 CSF Total Protein 120 H Medications Medications Current Medications Acetaminophen (Tylenol Liquid) 650 mg Q4 PRN GTB PAIN AND OR ELEVATED TEMP Last administered on 05/14/17 03:14; Admin Dose 650 MG; Start 04/25/17 at 23: 00 Eye Lubricant (Akwa Oint) 1 applic QID BOTH EYES Last administered on 12:33; Admin Dose 1 APPLIC; Start 04/26/17 at 09:00 Bromocriptine Mesylate (Parlodel) 30 mg DAILY GTB Last administered on 09:26; Admin Dose 30 MG; Start 04/26/17 at 09:00 Chlorhexidine Gluconate (Peridex) 15 ml BID MM Last administered on 05/15/17 09:25; Admin Dose 15 ML; Start 04/26/17 at 09:00 Ferrous Sulfate (Feosol Liquid Cup) 300 mg BID GTB Last administered on 09:25; Admin Dose 300 MG; Start 04/26/17 at 09:00 Hydrocortisone (Cortef) 20 mg DAILY GTB Last administered on 05/15/17 09:25; Admin Dose 20 MG; Start 04/26/17 at 09:00 Ondansetron HCl (Zofran Tab) 4 mg Q8 PRN GTB NAUSEA AND/OR VOMITING; Start at 23:00 Lactobacillus Acidophilus (Florajen3 Capsule) 1 each DAILY PEG Last administered on 05/15/17 09:25; Admin Dose 1 EACH; Start 04/26/17 at 09:00 Ascorbic Acid (Vitamin C) 250 mg BID GTB Last administered on 05/15/17 09:27 ; Admin Dose 250 MG; Start 04/26/17 at 09:00 Famotidine (Pepcid) 20 mg BID GTB Last administered on 05/15/17 09:25; Admin Dose 20 MG; Start 04/26/17 at 09:00 Morphine Sulfate (morphine) 2 mg Q4H PRN IV PAIN Last administered on 14:46; Admin Dose 2 MG; Start 04/26/17 at 16:30 Posaconazole (Noxafil) 400 mg Q8 PO Last administered on 05/15/17 12:32; Admin Dose 400 MG; Start 04/30/17 at 22:00 Ergocalciferol (Drisdol Liquid (Ped)) 50,000 units Q7D GTB Last administered on 05/09/17 09:47; Admin Dose 50,000 UNITS; Start 05/02/17 at 09:30 Enoxaparin Sodium (Lovenox) 50 mg Q12 SC Last administered on 05/15/17 09:28 ; Admin Dose 50 MG; Start 05/03/17 at 09:30 Diphenoxylate HCl/ Atropine (Lomotil Liquid Cup) 5 ml Q6H PRN PO DIARRHEA; Start 05/03/17 at 18:00 Collagenase (Santyl) 1 applic DAILY TOP Last administered on 05/15/17 09:24; Admin Dose 1 APPLIC; Start 05/04/17 at 14:30 Desmopressin Acetate 0.05 mg 0.05 mg DAILY GTB Last administered on 05/15/17 09:25; Admin Dose 0.05 MG; Start 05/07/17 at 09:00 Acyclovir/Sodium Chloride (Zovirax/NS) 100 ml @ 100 mls/hr Q8 IVPB Last administered on 05/15/17 12:32; Admin Dose 100 MLS/HR; Start 05/07/17 at 14:00 Potassium Chloride 20 meq 20 meq BID PO Last administered on 05/15/17 09:25; Admin Dose 20 MEQ; Start 05/12/17 at 10:00 Meropenem/Sodium Chloride (Merrem 1 Gm/50 ml (Pmx)) 50 ml @ 100 mls/hr Q8H IVPB Last administered on 05/15/17 12:32; Admin Dose 100 MLS/HR; Start 05/12 at 13:00 Vancomycin HCl 250 mg 250 mg Q6 GTB Last administered on 05/15/17 12:32; Admin Dose 250 MG; Start 05/13/17 at 12:00 Amphotericin B Liposome/Dextrose (Ambisome/D5W) 300 ml @ 200 mls/hr Q24H IVPB ; Start 05/15/17 at 13:30 Acetaminophen (Tylenol Tab) 500 mg 13 PO ; Start 05/15/17 at 13:00 Diphenhydramine HCl (Benadryl) 25 mg DAILY IV ; Start 05/15/17 at 13:00 Sodium Chloride (NS) 1,040 ml 13 IV* ; Start 05/15/17 at 13:00 Meperidine HCl (Demerol) 25 mg Q4H PRN IM RIGOR DURING AMBISONE INFUSION; Start 05/15/17 at 11:30 BATSHEVA MCKEON May 15, 2017 13:05
[2017-05-15] MEDS ORDERED: DEXTROSE 5% IVPB SCH (13:30)
[2017-05-15] MEDS ORDERED: AMPHOTERICIN B LIPOSOME IVPB SCH (13:30)
--- NOTE | 2017-05-15 13:32 | CONS ---
Date/Time of Note Date/Time of Note DATE: 05/15/17 TIME: 13:31 Assessment/Plan Assessment/Plan Chief Complaint/Hosp Course Disseminated coccidiomycosis Pneumonia UTI Vent dependent respiratory failure Encephalopathy DVT Problems: Additional Assessment/Plan Lovenox therapeutic no cardiac changes Consultation Date/Type/Reason Admit Date/Time Apr 25, 2017 at 12:31 Initial Consult Date 05/13/17 Type of Consultation: cv Referring Provider: HELEN CASTELLANO MD 24 HR Interval Summary Free Text/Dictation no distress Subjective hx not possible: pt non-verbal Exam/Review of Systems Vital Signs Vitals Vital Signs Date Time Temp Pulse Resp B/P Pulse Ox O2 Delivery O2 Flow Rate FiO2 05/15/17 12:51 93 05/15/17 11:04 98.6 18 108/64 98 05/15/17 09:04 30 05/13/17 15:41 Mechanical Ventilator Intake and Output 05/14/17 05/14/17 05/15/17 15:00 23:00 07:00 Intake Total 1200 ml 450 ml Output Total 1400 ml Balance -200 ml 450 ml Exam Head: atraumatic, normocephalic Neck: supple Respiratory: clear to auscultation Cardiovascular: regular rate and rhythm Gastrointestinal: soft Musculoskeletal: nl extremities to inspection Results Result Diagram: 05/15/17 0530 05/15/17 0540 Results 24 hrs Laboratory Tests Test 05/14/17 14:27 05/14/17 23:00 05/15/17 05:30 05/15/17 05:40 White Blood Count 7.4 # 5.8 # Red Blood Count 3.08 L 2.86 L Hemoglobin 8.6 L 8.3 L Hematocrit 27.0 L 25.3 L Mean Corpuscular Volume 87.7 88.5 Mean Corpuscular Hemoglobin 27.9 L 29.0 Mean Corpuscular Hemoglobin Concent 31.9 L 32.8 Red Cell Distribution Width 13.6 13.5 Platelet Count 249 252 Mean Platelet Volume 11.0 H 11.5 H Neutrophils % 76.1 69.9 Lymphocytes % 14.6 L 13.1 L Monocytes % 7.3 14.5 H Eosinophils % 0.4 0.7 Basophils % 0.9 0.9 Nucleated Red Blood Cells % 0.0 0.0 Neutrophils # 5.6 4.0 Lymphocytes # 1.1 0.8 Monocytes # 0.5 0.8 Eosinophils # 0.0 0.0 Basophils # 0.1 0.1 Nucleated Red Blood Cells # 0.0 0.0 Sodium Level 136 138 Potassium Level 3.7 3.0 L Chloride Level 96 L 99 Carbon Dioxide Level 31 31 Anion Gap 13 11 Blood Urea Nitrogen 7 7 Creatinine 0.39 L 0.38 L Glucose Level 115 110 Calcium Level 9.7 9.2 Vancomycin Level Trough 9.9 L CSF Tubes Submitted 2 CSF Volume 2.5 CSF Appearance CLEAR CSF Color COLORLESS CSF WBC 68821 *H CSF RBC 0 CSF Cell Count Tube # TUBE#2 CSF Mononuclear Cells % (Auto) 90.9 CSF Polynuclear WBCs (%) 9.1 CSF Glucose 76 CSF Total Protein 120 H Medications Medications Current Medications Acetaminophen (Tylenol Liquid) 650 mg Q4 PRN GTB PAIN AND OR ELEVATED TEMP Last administered on 05/14/17 03:14; Admin Dose 650 MG; Start 04/25/17 at 23: 00 Eye Lubricant (Akwa Oint) 1 applic QID BOTH EYES Last administered on 12:33; Admin Dose 1 APPLIC; Start 04/26/17 at 09:00 Bromocriptine Mesylate (Parlodel) 30 mg DAILY GTB Last administered on 09:26; Admin Dose 30 MG; Start 04/26/17 at 09:00 Chlorhexidine Gluconate (Peridex) 15 ml BID MM Last administered on 05/15/17 09:25; Admin Dose 15 ML; Start 04/26/17 at 09:00 Ferrous Sulfate (Feosol Liquid Cup) 300 mg BID GTB Last administered on 09:25; Admin Dose 300 MG; Start 04/26/17 at 09:00 Hydrocortisone (Cortef) 20 mg DAILY GTB Last administered on 05/15/17 09:25; Admin Dose 20 MG; Start 04/26/17 at 09:00 Ondansetron HCl (Zofran Tab) 4 mg Q8 PRN GTB NAUSEA AND/OR VOMITING; Start at 23:00 Lactobacillus Acidophilus (Florajen3 Capsule) 1 each DAILY PEG Last administered on 05/15/17 09:25; Admin Dose 1 EACH; Start 04/26/17 at 09:00 Ascorbic Acid (Vitamin C) 250 mg BID GTB Last administered on 05/15/17 09:27 ; Admin Dose 250 MG; Start 04/26/17 at 09:00 Famotidine (Pepcid) 20 mg BID GTB Last administered on 05/15/17 09:25; Admin Dose 20 MG; Start 04/26/17 at 09:00 Morphine Sulfate (morphine) 2 mg Q4H PRN IV PAIN Last administered on 14:46; Admin Dose 2 MG; Start 04/26/17 at 16:30 Posaconazole (Noxafil) 400 mg Q8 PO Last administered on 05/15/17 12:32; Admin Dose 400 MG; Start 04/30/17 at 22:00 Ergocalciferol (Drisdol Liquid (Ped)) 50,000 units Q7D GTB Last administered on 05/09/17 09:47; Admin Dose 50,000 UNITS; Start 05/02/17 at 09:30 Enoxaparin Sodium (Lovenox) 50 mg Q12 SC Last administered on 05/15/17 09:28 ; Admin Dose 50 MG; Start 05/03/17 at 09:30 Diphenoxylate HCl/ Atropine (Lomotil Liquid Cup) 5 ml Q6H PRN PO DIARRHEA; Start 05/03/17 at 18:00 Collagenase (Santyl) 1 applic DAILY TOP Last administered on 05/15/17 09:24; Admin Dose 1 APPLIC; Start 05/04/17 at 14:30 Desmopressin Acetate 0.05 mg 0.05 mg DAILY GTB Last administered on 05/15/17 09:25; Admin Dose 0.05 MG; Start 05/07/17 at 09:00 Acyclovir/Sodium Chloride (Zovirax/NS) 100 ml @ 100 mls/hr Q8 IVPB Last administered on 05/15/17 12:32; Admin Dose 100 MLS/HR; Start 05/07/17 at 14:00 Potassium Chloride 20 meq 20 meq BID PO Last administered on 05/15/17 09:25; Admin Dose 20 MEQ; Start 05/12/17 at 10:00 Meropenem/Sodium Chloride (Merrem 1 Gm/50 ml (Pmx)) 50 ml @ 100 mls/hr Q8H IVPB Last administered on 05/15/17 12:32; Admin Dose 100 MLS/HR; Start 05/12 at 13:00 Vancomycin HCl 250 mg 250 mg Q6 GTB Last administered on 05/15/17 12:32; Admin Dose 250 MG; Start 05/13/17 at 12:00 Amphotericin B Liposome/Dextrose (Ambisome/D5W) 300 ml @ 200 mls/hr Q24H IVPB ; Start 05/15/17 at 13:30 Acetaminophen (Tylenol Tab) 500 mg 13 PO ; Start 05/15/17 at 13:00 Diphenhydramine HCl (Benadryl) 25 mg DAILY IV ; Start 05/15/17 at 13:00 Sodium Chloride (NS) 1,040 ml 13 IV* ; Start 05/15/17 at 13:00 Meperidine HCl 25 mg 25 mg Q4H PRN IM RIGOR DURING AMBISONE INFUSION; Start at 11:30 Potassium Chloride/Sodium Chloride (KCl/NS) 110 ml @ 55 mls/hr ONCE ONCE IVPB ; Start 05/15/17 at 14:30; Stop 05/15/17 at 16:29 QUEENIE JURADO MD May 15, 2017 13:32
[2017-05-15] MEDS ORDERED: POTASSIUM CHLORIDE 20 MEQ in SOD CHLORIDE 0.9% 100 ML IVPB ONE (14:30)
[2017-05-16] VITALS (22 sets, daily range): BP systolic 108–126; BP diastolic 70–78; PULSE 85–101; RESP 16–20
[2017-05-16] MEDS: VANCOMYCIN HCL 250 MG/5ML POSYG GTB SCH ×4 (00:34→18:24)
[2017-05-16] MEDS: POSACONAZOLE PO SCH ×4 (00:34→21:47)
[2017-05-16] MEDS: MEROPENEM 1 GM/50ML(PMX) 50 ML IVPB SCH ×3 (05:08→21:47)
[2017-05-16] MEDS: ACYCLOVIR 500 MG in SOD CHLORIDE 0.9% 100 ML IVPB SCH ×3 (05:09→21:46)
[2017-05-16 07:11] LABS: CALCIUM 9.3 mg/dl (8.4-10.2); CREATININE 0.37 mg/dl (0.61-1.24)
[2017-05-16 07:23] LABS: POTASSIUM 2.6 mmol/L (3.5-5.1)
[2017-05-16] MEDS: DESMOPRESSIN 0.1 MG TAB GTB SCH (09:01)
[2017-05-16] MEDS: BROMOCRIPTINE 2.5 MG TAB GTB SCH (09:01)
[2017-05-16] MEDS: FAMOTIDINE 20 MG TAB GTB SCH ×2 (09:01→21:46)
[2017-05-16] MEDS: POTASSIUM CHLORIDE (SR) 20 MEQ TAB PO SCH ×2 (09:01→21:46)
[2017-05-16] MEDS: HYDROCORTISONE 20 MG TAB GTB SCH (09:01)
[2017-05-16] MEDS: ERGOCALCIFEROL (8000 UNITS/ML PO SYG) GTB SCH (09:02)
[2017-05-16] MEDS: ASCORBIC ACID 250 MG TAB GTB SCH ×2 (09:02→21:46)
[2017-05-16] MEDS: CHLORHEXIDINE GLUCONATE 15 ML UD CUP MM SCH ×2 (09:02→21:46)
[2017-05-16] MEDS: OCULAR LUBRICANT 3.5 GM OPH OINT BOTH EYES SCH ×4 (09:02→21:45)
[2017-05-16] MEDS: FERROUS SULFATE 60 MG/ML 5ML CUP GTB SCH ×2 (09:02→21:45)
[2017-05-16] MEDS: COLLAGENASE 30 GM TUBE TOP SCH (09:02)
[2017-05-16] MEDS: L ACIDOPHIL/B LACTIS/B LONGUM CAPSULE PEG SCH (09:15)
[2017-05-16] MEDS: ENOXAPARIN 60 MG/0.6 ML SYG SC SCH ×2 (09:15→21:48)
[2017-05-16] MEDS: POTASSIUM CHLORIDE 50 ML IVPB PRN ×3 (09:48→13:08)
--- NOTE | 2017-05-16 10:48 | OPPN ---
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 Operation/Procedure Performed 1. ventriculo-peritoenal shunt tap Surgeon Mohan Yao MD assistant professor of forestry none Anesthesia: other (none) Estimated blood loss: none Transfusion Required none Specimen CSF Grafts/Implants none Complications none MOHAN YAO MD May 16, 2017 10:48
--- NOTE | 2017-05-16 10:53 | CONS ---
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 CT shows normal ventricular size, multiple areas on encephalomalacia. No evidence shunt malfunction. Shunt tapped but ID request more fluid. After consent obtained from mother, shunt valve prepped sterilely and e-tap performed with 23 gauge butterfly needle inserted into shunt reservoir and 7 ml of clear, colorless fluid obtained. Pressure was low again with slow drainage due to small ventricular volume. Specimen sent for requested studies by ID. Prior fluid had negative gram stain and negative cultures to date. High WBC count but chronic. No evidence of shunt infection. Problems: Consultation Date/Type/Reason Admit Date/Time Apr 25, 2017 at 12:31 Initial Consult Date 05/14/17 Type of Consultation: Neurosurgery Referring Provider: HELEN CASTELLANO MD 24 HR Interval Summary Free Text/Dictation Neurologically unchanged. Vegetative state. Exam/Review of Systems Vital Signs Vitals Vital Signs Date Time Temp Pulse Resp B/P Pulse Ox O2 Delivery O2 Flow Rate FiO2 05/16/17 09:18 96 20 99 30 05/16/17 07:46 99.8 108/70 05/13/17 15:41 Mechanical Ventilator Intake and Output 05/15/17 05/15/17 05/16/17 15:00 23:00 07:00 Intake Total 1000 ml 1200 ml 1400 ml Output Total 1600 ml 1650 ml 2300 ml Balance -600 ml -450 ml -900 ml Exam Neurological: other (vegetative state. Opens eyes spontaneously, yawn. LE paresis, contractures, no volitional movements) Results Result Diagram: 05/15/17 0530 05/16/17 0612 Results 24 hrs Laboratory Tests Test 05/16/17 06:12 Sodium Level 136 Potassium Level 2.6 *L Chloride Level 98 Carbon Dioxide Level 30 Anion Gap 11 Blood Urea Nitrogen 9 Creatinine 0.37 L Glucose Level 102 Calcium Level 9.3 Medications Medications Current Medications Acetaminophen (Tylenol Liquid) 650 mg Q4 PRN GTB PAIN AND OR ELEVATED TEMP Last administered on 05/14/17 03:14; Admin Dose 650 MG; Start 04/25/17 at 23: 00 Eye Lubricant (Akwa Oint) 1 applic QID BOTH EYES Last administered on 09:02; Admin Dose 1 APPLIC; Start 04/26/17 at 09:00 Bromocriptine Mesylate (Parlodel) 30 mg DAILY GTB Last administered on 09:01; Admin Dose 30 MG; Start 04/26/17 at 09:00 Chlorhexidine Gluconate (Peridex) 15 ml BID MM Last administered on 05/16/17 09:02; Admin Dose 15 ML; Start 04/26/17 at 09:00 Ferrous Sulfate (Feosol Liquid Cup) 300 mg BID GTB Last administered on 09:02; Admin Dose 300 MG; Start 04/26/17 at 09:00 Hydrocortisone (Cortef) 20 mg DAILY GTB Last administered on 05/16/17 09:01; Admin Dose 20 MG; Start 04/26/17 at 09:00 Ondansetron HCl (Zofran Tab) 4 mg Q8 PRN GTB NAUSEA AND/OR VOMITING; Start at 23:00 Lactobacillus Acidophilus (Florajen3 Capsule) 1 each DAILY PEG Last administered on 05/16/17 09:15; Admin Dose 1 EACH; Start 04/26/17 at 09:00 Ascorbic Acid (Vitamin C) 250 mg BID GTB Last administered on 05/16/17 09:02 ; Admin Dose 250 MG; Start 04/26/17 at 09:00 Famotidine (Pepcid) 20 mg BID GTB Last administered on 05/16/17 09:01; Admin Dose 20 MG; Start 04/26/17 at 09:00 Morphine Sulfate (morphine) 2 mg Q4H PRN IV PAIN Last administered on 14:46; Admin Dose 2 MG; Start 04/26/17 at 16:30 Posaconazole (Noxafil) 400 mg Q8 PO Last administered on 05/16/17 05:09; Admin Dose 400 MG; Start 04/30/17 at 22:00 Ergocalciferol (Drisdol Liquid (Ped)) 50,000 units Q7D GTB Last administered on 05/16/17 09:02; Admin Dose 50,000 UNITS; Start 05/02/17 at 09:30 Enoxaparin Sodium (Lovenox) 50 mg Q12 SC Last administered on 05/16/17 09:15 ; Admin Dose 50 MG; Start 05/03/17 at 09:30 Diphenoxylate HCl/ Atropine (Lomotil Liquid Cup) 5 ml Q6H PRN PO DIARRHEA; Start 05/03/17 at 18:00 Collagenase (Santyl) 1 applic DAILY TOP Last administered on 05/16/17 09:02; Admin Dose 1 APPLIC; Start 05/04/17 at 14:30 Desmopressin Acetate 0.05 mg 0.05 mg DAILY GTB Last administered on 05/16/17 09:01; Admin Dose 0.05 MG; Start 05/07/17 at 09:00 Acyclovir/Sodium Chloride (Zovirax/NS) 100 ml @ 100 mls/hr Q8 IVPB Last administered on 05/16/17 05:09; Admin Dose 100 MLS/HR; Start 05/07/17 at 14:00 Potassium Chloride 20 meq 20 meq BID PO Last administered on 05/16/17 09:01; Admin Dose 20 MEQ; Start 05/12/17 at 10:00 Meropenem/Sodium Chloride (Merrem 1 Gm/50 ml (Pmx)) 50 ml @ 100 mls/hr Q8H IVPB Last administered on 05/16/17 05:08; Admin Dose 100 MLS/HR; Start 05/12 at 13:00 Vancomycin HCl 250 mg 250 mg Q6 GTB Last administered on 05/16/17 05:08; Admin Dose 250 MG; Start 05/13/17 at 12:00 Amphotericin B Liposome/Dextrose (Ambisome/D5W) 300 ml @ 200 mls/hr Q24H IVPB Last administered on 05/15/17 17:53; Admin Dose 200 MLS/HR; Start 05/15/17 at 13:30 Acetaminophen (Tylenol Tab) 500 mg 13 PO Last administered on 05/15/17 17:24 ; Admin Dose 500 MG; Start 05/15/17 at 13:00 Diphenhydramine HCl (Benadryl) 25 mg DAILY IV Last administered on 05/15/17 17:24; Admin Dose 25 MG; Start 05/15/17 at 13:00 Sodium Chloride (NS) 1,040 ml 13 IV* Last administered on 05/15/17 16:55; Admin Dose 1,040 ML; Start 05/15/17 at 13:00 Meperidine HCl (Demerol) 25 mg Q4H PRN IM RIGOR DURING AMBISONE INFUSION; Start 05/15/17 at 11:30 NANDO YAO MD May 16, 2017 10:53
[2017-05-16 11:51] LABS: CSF COLOR COLORLESS
[2017-05-16 11:52] LABS: CSF#TUBE COUNT TUBE#3; CSF#TUBES REC'D 3
[2017-05-16 11:53] LABS: GLUCOSE,CSF 80 mg/dl (50-80)
--- NOTE | 2017-05-16 12:42 | PN ---
Date/Time of Note Date/Time of Note DATE: 05/16/17 TIME: 12:41 Assessment/Plan VTE Prophylaxis VTE Prophylaxis Intervention: other Lines/Catheters IV Catheter Type (from Nrs): PICC Line Central line still needed: Yes Urinary Cath still in place: Yes Reason Cath still needed: skin wounds contaminated by urine Assessment/Plan Chief Complaint/Hosp Course - C. difficile colitis, continue vancomycin via G-tube - Septic shock due to bilateral pneumonia and UTI, resolving. Continue antibiotics per ID. Dr Brown is following in infection disease consultation. 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 Continue Lovenox. - Acute kidney injury, resolving. - Hypernatremia, resolved. Dr Sorensen is following in nephrology consultation. - Hypokalemia, continue k protocol. - Pancytopenia most likely secondary to sepsis - Dysphagia with PEG. Continue tube G-tube feeding - VDRF with tracheostomy - Hydrocephalus, status post [employer] shunt. - Polyuria, improving. Problems: Subjective 24 Hr Interval Summary Free Text/Dictation Patient has no complaints Exam/Review of Systems Vital Signs Vitals Vital Signs Date Time Temp Pulse Resp B/P Pulse Ox O2 Delivery O2 Flow Rate FiO2 05/16/17 12:31 101 05/16/17 11:58 101.5 18 126/78 96 05/16/17 09:18 30 05/13/17 15:41 Mechanical Ventilator Intake and Output 05/15/17 05/15/17 05/16/17 15:00 23:00 07:00 Intake Total 1000 ml 1200 ml 1400 ml Output Total 1600 ml 1650 ml 2300 ml Balance -600 ml -450 ml -900 ml Exam Constitutional: well developed Head: atraumatic, normocephalic Neck: supple Respiratory: clear to auscultation Cardiovascular: regular rate and rhythm Gastrointestinal: non-tender, soft Extremities: normal pulses Results Result Diagram: 05/15/17 0530 05/16/17 0612 Results 24 hrs Laboratory Tests Test 05/16/17 06:12 05/16/17 10:50 Sodium Level 136 Potassium Level 2.6 *L Chloride Level 98 Carbon Dioxide Level 30 Anion Gap 11 Blood Urea Nitrogen 9 Creatinine 0.37 L Glucose Level 102 Calcium Level 9.3 CSF Tubes Submitted 3 CSF Volume 8.0 CSF Appearance CLEAR CSF Color COLORLESS CSF WBC 4 CSF RBC 0 CSF Cell Count Tube # TUBE#3 CSF Mononuclear Cells % (Auto) 75.0 CSF Polynuclear WBCs (%) 25.0 CSF Glucose 80 CSF Total Protein 127 H Medications Medications Current Medications Acetaminophen (Tylenol Liquid) 650 mg Q4 PRN GTB PAIN AND OR ELEVATED TEMP Last administered on 05/14/17 03:14; Admin Dose 650 MG; Start 04/25/17 at 23: 00 Eye Lubricant (Akwa Oint) 1 applic QID BOTH EYES Last administered on 09:02; Admin Dose 1 APPLIC; Start 04/26/17 at 09:00 Bromocriptine Mesylate (Parlodel) 30 mg DAILY GTB Last administered on 09:01; Admin Dose 30 MG; Start 04/26/17 at 09:00 Chlorhexidine Gluconate (Peridex) 15 ml BID MM Last administered on 05/16/17 09:02; Admin Dose 15 ML; Start 04/26/17 at 09:00 Ferrous Sulfate (Feosol Liquid Cup) 300 mg BID GTB Last administered on 09:02; Admin Dose 300 MG; Start 04/26/17 at 09:00 Hydrocortisone (Cortef) 20 mg DAILY GTB Last administered on 05/16/17 09:01; Admin Dose 20 MG; Start 04/26/17 at 09:00 Ondansetron HCl (Zofran Tab) 4 mg Q8 PRN GTB NAUSEA AND/OR VOMITING; Start at 23:00 Lactobacillus Acidophilus (Florajen3 Capsule) 1 each DAILY PEG Last administered on 05/16/17 09:15; Admin Dose 1 EACH; Start 04/26/17 at 09:00 Ascorbic Acid (Vitamin C) 250 mg BID GTB Last administered on 05/16/17 09:02 ; Admin Dose 250 MG; Start 04/26/17 at 09:00 Famotidine (Pepcid) 20 mg BID GTB Last administered on 05/16/17 09:01; Admin Dose 20 MG; Start 04/26/17 at 09:00 Morphine Sulfate (morphine) 2 mg Q4H PRN IV PAIN Last administered on 14:46; Admin Dose 2 MG; Start 04/26/17 at 16:30 Posaconazole (Noxafil) 400 mg Q8 PO Last administered on 05/16/17 05:09; Admin Dose 400 MG; Start 04/30/17 at 22:00 Ergocalciferol (Drisdol Liquid (Ped)) 50,000 units Q7D GTB Last administered on 05/16/17 09:02; Admin Dose 50,000 UNITS; Start 05/02/17 at 09:30 Enoxaparin Sodium (Lovenox) 50 mg Q12 SC Last administered on 05/16/17 09:15 ; Admin Dose 50 MG; Start 05/03/17 at 09:30 Diphenoxylate HCl/ Atropine (Lomotil Liquid Cup) 5 ml Q6H PRN PO DIARRHEA; Start 05/03/17 at 18:00 Collagenase (Santyl) 1 applic DAILY TOP Last administered on 05/16/17 09:02; Admin Dose 1 APPLIC; Start 05/04/17 at 14:30 Desmopressin Acetate 0.05 mg 0.05 mg DAILY GTB Last administered on 05/16/17 09:01; Admin Dose 0.05 MG; Start 05/07/17 at 09:00 Acyclovir/Sodium Chloride (Zovirax/NS) 100 ml @ 100 mls/hr Q8 IVPB Last administered on 05/16/17 05:09; Admin Dose 100 MLS/HR; Start 05/07/17 at 14:00 Potassium Chloride 20 meq 20 meq BID PO Last administered on 05/16/17 09:01; Admin Dose 20 MEQ; Start 05/12/17 at 10:00 Meropenem/Sodium Chloride (Merrem 1 Gm/50 ml (Pmx)) 50 ml @ 100 mls/hr Q8H IVPB Last administered on 05/16/17 05:08; Admin Dose 100 MLS/HR; Start 05/12 at 13:00 Vancomycin HCl 250 mg 250 mg Q6 GTB Last administered on 05/16/17 05:08; Admin Dose 250 MG; Start 05/13/17 at 12:00 Amphotericin B Liposome/Dextrose (Ambisome/D5W) 300 ml @ 200 mls/hr Q24H IVPB Last administered on 05/15/17 17:53; Admin Dose 200 MLS/HR; Start 05/15/17 at 13:30 Acetaminophen (Tylenol Tab) 500 mg 13 PO Last administered on 05/15/17 17:24 ; Admin Dose 500 MG; Start 05/15/17 at 13:00 Diphenhydramine HCl (Benadryl) 25 mg DAILY IV Last administered on 05/15/17 17:24; Admin Dose 25 MG; Start 05/15/17 at 13:00 Sodium Chloride (NS) 1,040 ml 13 IV* Last administered on 05/15/17 16:55; Admin Dose 1,040 ML; Start 05/15/17 at 13:00 Meperidine HCl (Demerol) 25 mg Q4H PRN IM RIGOR DURING AMBISONE INFUSION; Start 05/15/17 at 11:30 ANDREA JORGENSEN May 16, 2017 12:42
[2017-05-16] MEDS: ACETAMINOPHEN 650MG/20.3ML CUP GTB PRN (13:08)
--- NOTE | 2017-05-16 13:41 | CONS ---
Date/Time of Note Date/Time of Note DATE: 05/16/17 TIME: 13:32 Assessment/Plan Assessment/Plan Additional Assessment/Plan CHEMICAL CODE 1. Severe Hypokalemia- 2.6 replace K- per K protocol, bmp am 1. Non Oliguric Acute kidney injury due to septic shock - BUN/Cr - 9/0.37 today 2. Hypernatremia- resolved 3. Septic shock on Levophed - Resolved 4. Acute on chronic resp failure s/p Tracheostomy- on ventilator, pulmonary has been following 5. H/o Fungal meningitis, currently comatose - sp CSF tap today again , ID follows 6. 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 Anemia- monitor CBC Plan:- - sp COMPUTER CUSTOMER SUPPORT SPECIALIST shunt retap by neurosx today- for fluid cultures -Na 136 with DDAVP to 0.05 daily , K replacement protocol, continue NS with KCL at current rate -ID, pulmonary has been following , on IV meropenem and IV acyclovir -will follow up -DW Dr Mar Sorensen Consultation Date/Type/Reason Admit Date/Time Apr 25, 2017 at 12:31 Initial Consult Date 04/25/17 Type of Consultation: Neurosurgery Referring Provider: HELEN CASTELLANO MD 24 HR Interval Summary Free Text/Dictation - remains on trach to vent, sp VPS tap- ID follows, - SP COMPUTER CUSTOMER SUPPORT SPECIALIST shunt retap by neurosx today- for fluid cultures, id follows - BUN/Cr- 7/38 today. K is low- will replace , fu bmp am - mother at bed side - all Qs answered,plan of care dw mother - DW staff Subjective hx not possible: pt non-verbal Constitutional: requiring IVF, requiring O2 Exam/Review of Systems Vital Signs Vitals Vital Signs Date Time Temp Pulse Resp B/P Pulse Ox O2 Delivery O2 Flow Rate FiO2 05/16/17 12:31 101 05/16/17 11:58 101.5 18 126/78 96 05/16/17 09:18 30 05/13/17 15:41 Mechanical Ventilator Intake and Output 05/15/17 05/15/17 05/16/17 15:00 23:00 07:00 Intake Total 1000 ml 1200 ml 1400 ml Output Total 1600 ml 1650 ml 2300 ml Balance -600 ml -450 ml -900 ml Exam Constitutional: non-verbal Respiratory: diminished breath sounds Cardiovascular: other (s1s2) Gastrointestinal: other, soft Musculoskeletal: muscle weakness Extremities: normal pulses Neurological: unresponsive Results Result Diagram: 05/15/17 0530 05/16/17 0612 Results 24 hrs Laboratory Tests Test 05/16/17 06:12 05/16/17 10:50 Sodium Level 136 Potassium Level 2.6 *L Chloride Level 98 Carbon Dioxide Level 30 Anion Gap 11 Blood Urea Nitrogen 9 Creatinine 0.37 L Glucose Level 102 Calcium Level 9.3 CSF Tubes Submitted 3 CSF Volume 8.0 CSF Appearance CLEAR CSF Color COLORLESS CSF WBC 4 CSF RBC 0 CSF Cell Count Tube # TUBE#3 CSF Mononuclear Cells % (Auto) 75.0 CSF Polynuclear WBCs (%) 25.0 CSF Glucose 80 CSF Total Protein 127 H Medications Medications Current Medications Acetaminophen (Tylenol Liquid) 650 mg Q4 PRN GTB PAIN AND OR ELEVATED TEMP Last administered on 05/16/17 13:08; Admin Dose 650 MG; Start 04/25/17 at 23: 00 Eye Lubricant (Akwa Oint) 1 applic QID BOTH EYES Last administered on 13:09; Admin Dose 1 APPLIC; Start 04/26/17 at 09:00 Bromocriptine Mesylate (Parlodel) 30 mg DAILY GTB Last administered on 09:01; Admin Dose 30 MG; Start 04/26/17 at 09:00 Chlorhexidine Gluconate (Peridex) 15 ml BID MM Last administered on 05/16/17 09:02; Admin Dose 15 ML; Start 04/26/17 at 09:00 Ferrous Sulfate (Feosol Liquid Cup) 300 mg BID GTB Last administered on 09:02; Admin Dose 300 MG; Start 04/26/17 at 09:00 Hydrocortisone (Cortef) 20 mg DAILY GTB Last administered on 05/16/17 09:01; Admin Dose 20 MG; Start 04/26/17 at 09:00 Ondansetron HCl (Zofran Tab) 4 mg Q8 PRN GTB NAUSEA AND/OR VOMITING; Start at 23:00 Lactobacillus Acidophilus (Florajen3 Capsule) 1 each DAILY PEG Last administered on 05/16/17 09:15; Admin Dose 1 EACH; Start 04/26/17 at 09:00 Ascorbic Acid (Vitamin C) 250 mg BID GTB Last administered on 05/16/17 09:02 ; Admin Dose 250 MG; Start 04/26/17 at 09:00 Famotidine (Pepcid) 20 mg BID GTB Last administered on 05/16/17 09:01; Admin Dose 20 MG; Start 04/26/17 at 09:00 Morphine Sulfate (morphine) 2 mg Q4H PRN IV PAIN Last administered on 14:46; Admin Dose 2 MG; Start 04/26/17 at 16:30 Posaconazole (Noxafil) 400 mg Q8 PO Last administered on 05/16/17 13:08; Admin Dose 400 MG; Start 04/30/17 at 22:00 Ergocalciferol (Drisdol Liquid (Ped)) 50,000 units Q7D GTB Last administered on 05/16/17 09:02; Admin Dose 50,000 UNITS; Start 05/02/17 at 09:30 Enoxaparin Sodium (Lovenox) 50 mg Q12 SC Last administered on 05/16/17 09:15 ; Admin Dose 50 MG; Start 05/03/17 at 09:30 Diphenoxylate HCl/ Atropine (Lomotil Liquid Cup) 5 ml Q6H PRN PO DIARRHEA; Start 05/03/17 at 18:00 Collagenase (Santyl) 1 applic DAILY TOP Last administered on 05/16/17 09:02; Admin Dose 1 APPLIC; Start 05/04/17 at 14:30 Desmopressin Acetate 0.05 mg 0.05 mg DAILY GTB Last administered on 05/16/17 09:01; Admin Dose 0.05 MG; Start 05/07/17 at 09:00 Acyclovir/Sodium Chloride (Zovirax/NS) 100 ml @ 100 mls/hr Q8 IVPB Last administered on 05/16/17 05:09; Admin Dose 100 MLS/HR; Start 05/07/17 at 14:00 Potassium Chloride 20 meq 20 meq BID PO Last administered on 05/16/17 09:01; Admin Dose 20 MEQ; Start 05/12/17 at 10:00 Meropenem/Sodium Chloride (Merrem 1 Gm/50 ml (Pmx)) 50 ml @ 100 mls/hr Q8H IVPB Last administered on 05/16/17 13:08; Admin Dose 100 MLS/HR; Start 05/12 at 13:00 Vancomycin HCl 250 mg 250 mg Q6 GTB Last administered on 05/16/17 13:08; Admin Dose 250 MG; Start 05/13/17 at 12:00 Amphotericin B Liposome/Dextrose (Ambisome/D5W) 300 ml @ 200 mls/hr Q24H IVPB Last administered on 05/15/17 17:53; Admin Dose 200 MLS/HR; Start 05/15/17 at 13:30 Acetaminophen (Tylenol Tab) 500 mg 13 PO Last administered on 05/15/17 17:24 ; Admin Dose 500 MG; Start 05/15/17 at 13:00 Diphenhydramine HCl (Benadryl) 25 mg DAILY IV Last administered on 05/15/17 17:24; Admin Dose 25 MG; Start 05/15/17 at 13:00 Sodium Chloride (NS) 1,040 ml 13 IV* Last administered on 05/15/17 16:55; Admin Dose 1,040 ML; Start 05/15/17 at 13:00 Meperidine HCl (Demerol) 25 mg Q4H PRN IM RIGOR DURING AMBISONE INFUSION; Start 05/15/17 at 11:30 BATSHEVA MCKEON May 16, 2017 13:41
--- NOTE | 2017-05-16 15:55 | CONS ---
Date/Time of Note Date/Time of Note DATE: 05/16/17 TIME: 15:49 Assessment/Plan Assessment/Plan Chief Complaint/Hosp Course assessment/impression - possibly worsening coccidioides meningitis and/or superimposed meningitis due to another pathogen. CSF from the shunt on 05/15/2017 had WBC 11 (91% mono, 9 % lymph), glu=76, crrajtx=640, 05/16/2017 had WBC 4 (75% mono, 25 % lymph), glu=80 , [id number]=411 (last LP on record at [facility] on 03/31/2017: WBC 4 33% PMNs, RBC 16, glu <10, protein >2,000) - h/o disseminated coccidioides mycosis infection, meningitis. - coccidioides CF 14:8 on 03/21/2017, CF 1:16 on 04/26/2017 - posaconazole trough level 0.32 on 04/27/2017, the dose was increased on 2016. The repeat level 0/37 on 05/07/2017 - CSF, last LP on record at [facility] on 03/31/2017: WBC 4 33% PMNs, RBC 16, glu <10, protein >2,000. - C diff colitis, recurrent - septic shock due to pneumonia and UTI - UTI due to ESBL+E. coli. Took pip/tazo and then meropenem - b/l pneumonia due to klebsiella, EBL+E. coli. - severe herpes labialis - s/p VPS placement - VDRF s/p tracheostomy - PEG dependet status - pancytopenia, due to septic shock on admission, improved - thrombocytopenia, improved recommendations Note: I was informed by Pt's RN aYdira at 12:45 that the laboratory incorrectly reported Pt's WBC=11,000 in CSF from 05/15/2017. This was corrected to WBC=11, not 11,000. - pending results: CSF (culture, VDRL, enterovirus PCR) - I appreciate Dr. Sandoval's sending more CSF. Pt's RN said that all my requested tests were sent: coccidioides compliment fixation, fungus culture, herpes simplex virus PCR, West Nile virus IgM/IgG, cryptococcus antigen, culture , cell count, protein, glucose - d/c Ambisome because WBC count is now corrected at 11. If CSF shows persistent coccidioides meningitis, will re-start Ambisome - continue posaconazole to 400 mg q8hrs (posaconazole trough level 0.32 on 2016, the dose was increased on 04/29/2017) - continue meropenem (restart 05/09/2017-) for empiric sepsis management - continue IV acyclovir (05/07/2017-) for herpes labialis but also for possible herpes encephalitis - no topical acyclovir available on [facility] - continue pGT vancomycin (05/07/2017-) for C diff colitis - enteric and droplet contact precautions management d/w Pt's mother, Pt's RN Yadira, SLURRY TANK OPERATOR Alexander the total time I took to care for this Pt today was 45 min the critical care time I took to care for this Pt today was from 0950 to 1145 Problems: Consultation Date/Type/Reason Admit Date/Time Apr 25, 2017 at 12:31 Initial Consult Date 04/25/17 Type of Consultation: ID Referring Provider: HELEN CASTELLANO MD 24 HR Interval Summary Subjective hx not possible: pt non-verbal, pt critical, pt critical status Exam/Review of Systems Vital Signs Vitals Vital Signs Date Time Temp Pulse Resp B/P Pulse Ox O2 Delivery O2 Flow Rate FiO2 05/16/17 15:17 100.2 99 18 113/72 98 05/16/17 13:31 30 05/13/17 15:41 Mechanical Ventilator Intake and Output 05/15/17 05/15/17 05/16/17 15:00 23:00 07:00 Intake Total 1000 ml 1200 ml 1400 ml Output Total 1600 ml 1650 ml 2300 ml Balance -600 ml -450 ml -900 ml Exam Constitutional: frail, non-verbal Psych: confusion Head: other (s/p VPS placement) Eyes: nl conjunctiva ENMT: nl external ears & nose, nl nasal mucosa & septum Respiratory: crackles/rales, other (trach) Cardiovascular: nl pulses, regular rate and rhythm Gastrointestinal: non-tender, other (GT), soft Genitourinary - Male: other (FC) Musculoskeletal: nl extremities to inspection Extremities: No edema Neurological: lethargic, unresponsive Skin: nl turgor Results Result Diagram: 05/15/17 0530 05/16/17 0612 Results 24 hrs Laboratory Tests Test 05/16/17 06:12 05/16/17 10:50 Sodium Level 136 Potassium Level 2.6 *L Chloride Level 98 Carbon Dioxide Level 30 Anion Gap 11 Blood Urea Nitrogen 9 Creatinine 0.37 L Glucose Level 102 Calcium Level 9.3 CSF Tubes Submitted 3 CSF Volume 8.0 CSF Appearance CLEAR CSF Color COLORLESS CSF WBC 4 CSF RBC 0 CSF Cell Count Tube # TUBE#3 CSF Mononuclear Cells % (Auto) 75.0 CSF Polynuclear WBCs (%) 25.0 CSF Glucose 80 CSF Total Protein 127 H Medications Medications Current Medications Acetaminophen (Tylenol Liquid) 650 mg Q4 PRN GTB PAIN AND OR ELEVATED TEMP Last administered on 05/16/17 13:08; Admin Dose 650 MG; Start 04/25/17 at 23: 00 Eye Lubricant (Akwa Oint) 1 applic QID BOTH EYES Last administered on 13:09; Admin Dose 1 APPLIC; Start 04/26/17 at 09:00 Bromocriptine Mesylate (Parlodel) 30 mg DAILY GTB Last administered on 09:01; Admin Dose 30 MG; Start 04/26/17 at 09:00 Chlorhexidine Gluconate (Peridex) 15 ml BID MM Last administered on 05/16/17 09:02; Admin Dose 15 ML; Start 04/26/17 at 09:00 Ferrous Sulfate (Feosol Liquid Cup) 300 mg BID GTB Last administered on 09:02; Admin Dose 300 MG; Start 04/26/17 at 09:00 Hydrocortisone (Cortef) 20 mg DAILY GTB Last administered on 05/16/17 09:01; Admin Dose 20 MG; Start 04/26/17 at 09:00 Ondansetron HCl (Zofran Tab) 4 mg Q8 PRN GTB NAUSEA AND/OR VOMITING; Start at 23:00 Lactobacillus Acidophilus (Florajen3 Capsule) 1 each DAILY PEG Last administered on 05/16/17 09:15; Admin Dose 1 EACH; Start 04/26/17 at 09:00 Ascorbic Acid (Vitamin C) 250 mg BID GTB Last administered on 05/16/17 09:02 ; Admin Dose 250 MG; Start 04/26/17 at 09:00 Famotidine (Pepcid) 20 mg BID GTB Last administered on 05/16/17 09:01; Admin Dose 20 MG; Start 04/26/17 at 09:00 Morphine Sulfate (morphine) 2 mg Q4H PRN IV PAIN Last administered on 14:46; Admin Dose 2 MG; Start 04/26/17 at 16:30 Posaconazole (Noxafil) 400 mg Q8 PO Last administered on 05/16/17 13:08; Admin Dose 400 MG; Start 04/30/17 at 22:00 Ergocalciferol (Drisdol Liquid (Ped)) 50,000 units Q7D GTB Last administered on 05/16/17 09:02; Admin Dose 50,000 UNITS; Start 05/02/17 at 09:30 Enoxaparin Sodium (Lovenox) 50 mg Q12 SC Last administered on 05/16/17 09:15 ; Admin Dose 50 MG; Start 05/03/17 at 09:30 Diphenoxylate HCl/ Atropine (Lomotil Liquid Cup) 5 ml Q6H PRN PO DIARRHEA; Start 05/03/17 at 18:00 Collagenase (Santyl) 1 applic DAILY TOP Last administered on 05/16/17 09:02; Admin Dose 1 APPLIC; Start 05/04/17 at 14:30 Desmopressin Acetate 0.05 mg 0.05 mg DAILY GTB Last administered on 05/16/17 09:01; Admin Dose 0.05 MG; Start 05/07/17 at 09:00 Acyclovir/Sodium Chloride (Zovirax/NS) 100 ml @ 100 mls/hr Q8 IVPB Last administered on 05/16/17 15:31; Admin Dose 100 MLS/HR; Start 05/07/17 at 14:00 Potassium Chloride 20 meq 20 meq BID PO Last administered on 05/16/17 09:01; Admin Dose 20 MEQ; Start 05/12/17 at 10:00 Meropenem/Sodium Chloride (Merrem 1 Gm/50 ml (Pmx)) 50 ml @ 100 mls/hr Q8H IVPB Last administered on 05/16/17 13:08; Admin Dose 100 MLS/HR; Start 05/12 at 13:00 Vancomycin HCl (Vancomycin Oral Syringe) 250 mg Q6 GTB Last administered on 13:08; Admin Dose 250 MG; Start 05/13/17 at 12:00 ELENI EVANS M.D. May 16, 2017 15:55
[2017-05-17] VITALS (25 sets, daily range): BP systolic 103–128; BP diastolic 51–81; PULSE 89–108; RESP 16–25
[2017-05-17] MEDS: VANCOMYCIN HCL 250 MG/5ML POSYG GTB SCH ×5 (01:00→23:52)
[2017-05-17] MEDS: ACYCLOVIR 500 MG in SOD CHLORIDE 0.9% 100 ML IVPB SCH ×3 (05:07→23:52)
[2017-05-17] MEDS: MEROPENEM 1 GM/50ML(PMX) 50 ML IVPB SCH ×3 (05:07→21:05)
[2017-05-17] MEDS: POSACONAZOLE PO SCH ×3 (05:07→21:05)
[2017-05-17 07:37] LABS: BASOPHIL # 0.1 10^3/ul (0.0-0.1); BASOPHILS % 0.7 % (0.0-2.0); EOSINOPHILS % 0.6 % (0.0-7.0); HEMATOCRIT 25.8 % (42.0-52.0); HEMOGLOBIN 8.2 g/dl (14.0-18.0); LYMPHOCYTES # 0.9 10^3/ul (0.8-2.9); LYMPHOCYTES % 13.7 % (15.0-51.0); MEAN CORPUSCULAR HGB CONC 31.8 g/dl (32.0-37.0); MEAN CORPUSCULAR VOLUME 88.1 fl (82.0-101.0); MEAN PLATELET VOLUME 11.4 fl (7.4-10.4); MONOCYTE # 0.9 10^3/ul (0.3-0.9); MONOCYTES % 12.6 % (0.0-11.0); NEUTROPHIL # 4.8 10^3/ul (1.6-7.5); NEUTROPHILS % 71.4 % (39.0-77.0); PLATELET COUNT 239 10^3/UL (140-415); RED BLOOD COUNT 2.93 10^6/ul (4.70-6.10); RED CELL DISTRIBUTION WIDTH 13.7 % (11.5-14.5); WHITE BLOOD COUNT 6.7 10^3/ul (4.8-10.8)
[2017-05-17 08:21] LABS: CALCIUM 9.5 mg/dl (8.4-10.2); CREATININE 0.4 mg/dl (0.61-1.24)
[2017-05-17 08:23] LABS: POTASSIUM 2.8 mmol/L (3.5-5.1)
--- NOTE | 2017-05-17 08:56 | CONS ---
Date/Time of Note Date/Time of Note DATE: 05/17/17 TIME: 08:52 Assessment/Plan Assessment/Plan Chief Complaint/Hosp Course Patient with h/o cocci meningitis. In vegetative state. CT shows normal ventricular size, multiple areas on encephalomalacia. No evidence shunt malfunction. Shunt tapped twice. CSF clear and colorless on both taps, no evidence of infection on gram stain and no bacterial growth after 2 days. Only 11 WBC on first tap, not 11K as reported listed as corrected rather error. This makes more sense. No indication for any shunt modification. Patient can f/u with surgeons at [facility] prn for any shunt related issues. Problems: Consultation Date/Type/Reason Admit Date/Time Apr 25, 2017 at 12:31 Initial Consult Date 05/14/17 Type of Consultation: Neurosurgery Referring Provider: HELEN CASTELLANO MD 24 HR Interval Summary Free Text/Dictation Patient remains in a vegetative state, Exam/Review of Systems Vital Signs Vitals Vital Signs Date Time Temp Pulse Resp B/P Pulse Ox O2 Delivery O2 Flow Rate FiO2 05/17/17 07:30 92 16 99 30 05/17/17 07:24 98.2 115/77 05/13/17 15:41 Mechanical Ventilator Intake and Output 05/16/17 05/16/17 05/17/17 15:00 23:00 07:00 Intake Total 1150 ml 1250 ml Output Total 2000 ml 1800 ml Balance -850 ml -550 ml Exam Head: other (shunt pumps and refills) Neurological: other (vegetative state) Results Result Diagram: 05/17/17 0703 05/17/17 0703 Results 24 hrs Laboratory Tests Test 05/16/17 10:50 05/17/17 07:03 CSF Tubes Submitted 3 CSF Volume 8.0 CSF Appearance CLEAR CSF Color COLORLESS CSF WBC 4 CSF RBC 0 CSF Cell Count Tube # TUBE#3 CSF Mononuclear Cells % (Auto) 75.0 CSF Polynuclear WBCs (%) 25.0 CSF Glucose 80 CSF Total Protein 127 H White Blood Count 6.7 Red Blood Count 2.93 L Hemoglobin 8.2 L Hematocrit 25.8 L Mean Corpuscular Volume 88.1 Mean Corpuscular Hemoglobin 28.0 L Mean Corpuscular Hemoglobin Concent 31.8 L Red Cell Distribution Width 13.7 Platelet Count 239 Mean Platelet Volume 11.4 H Neutrophils % 71.4 Lymphocytes % 13.7 L Monocytes % 12.6 H Eosinophils % 0.6 Basophils % 0.7 Nucleated Red Blood Cells % 0.0 Neutrophils # 4.8 Lymphocytes # 0.9 Monocytes # 0.9 Eosinophils # 0.0 Basophils # 0.1 Nucleated Red Blood Cells # 0.0 Sodium Level 138 Potassium Level 2.8 *L Chloride Level 99 Carbon Dioxide Level 30 Anion Gap 12 Blood Urea Nitrogen 8 Creatinine 0.40 L Glucose Level 101 Calcium Level 9.5 Medications Medications Current Medications Acetaminophen (Tylenol Liquid) 650 mg Q4 PRN GTB PAIN AND OR ELEVATED TEMP Last administered on 05/16/17 13:08; Admin Dose 650 MG; Start 04/25/17 at 23: 00 Eye Lubricant (Akwa Oint) 1 applic QID BOTH EYES Last administered on 21:45; Admin Dose 1 APPLIC; Start 04/26/17 at 09:00 Bromocriptine Mesylate (Parlodel) 30 mg DAILY GTB Last administered on 09:01; Admin Dose 30 MG; Start 04/26/17 at 09:00 Chlorhexidine Gluconate (Peridex) 15 ml BID MM Last administered on 05/16/17 21:46; Admin Dose 15 ML; Start 04/26/17 at 09:00 Ferrous Sulfate (Feosol Liquid Cup) 300 mg BID GTB Last administered on 21:45; Admin Dose 300 MG; Start 04/26/17 at 09:00 Hydrocortisone (Cortef) 20 mg DAILY GTB Last administered on 05/16/17 09:01; Admin Dose 20 MG; Start 04/26/17 at 09:00 Ondansetron HCl (Zofran Tab) 4 mg Q8 PRN GTB NAUSEA AND/OR VOMITING; Start at 23:00 Lactobacillus Acidophilus (Florajen3 Capsule) 1 each DAILY PEG Last administered on 05/16/17 09:15; Admin Dose 1 EACH; Start 04/26/17 at 09:00 Ascorbic Acid (Vitamin C) 250 mg BID GTB Last administered on 05/16/17 21:46 ; Admin Dose 250 MG; Start 04/26/17 at 09:00 Famotidine (Pepcid) 20 mg BID GTB Last administered on 05/16/17 21:46; Admin Dose 20 MG; Start 04/26/17 at 09:00 Morphine Sulfate (morphine) 2 mg Q4H PRN IV PAIN Last administered on 14:46; Admin Dose 2 MG; Start 04/26/17 at 16:30 Posaconazole (Noxafil) 400 mg Q8 PO Last administered on 05/17/17 05:07; Admin Dose 400 MG; Start 04/30/17 at 22:00 Ergocalciferol (Drisdol Liquid (Ped)) 50,000 units Q7D GTB Last administered on 05/16/17 09:02; Admin Dose 50,000 UNITS; Start 05/02/17 at 09:30 Enoxaparin Sodium (Lovenox) 50 mg Q12 SC Last administered on 05/16/17 21:48 ; Admin Dose 50 MG; Start 05/03/17 at 09:30 Diphenoxylate HCl/ Atropine (Lomotil Liquid Cup) 5 ml Q6H PRN PO DIARRHEA; Start 05/03/17 at 18:00 Collagenase (Santyl) 1 applic DAILY TOP Last administered on 05/16/17 09:02; Admin Dose 1 APPLIC; Start 05/04/17 at 14:30 Desmopressin Acetate 0.05 mg 0.05 mg DAILY GTB Last administered on 05/16/17 09:01; Admin Dose 0.05 MG; Start 05/07/17 at 09:00 Acyclovir/Sodium Chloride (Zovirax/NS) 100 ml @ 100 mls/hr Q8 IVPB Last administered on 05/17/17 05:07; Admin Dose 100 MLS/HR; Start 05/07/17 at 14:00 Potassium Chloride 20 meq 20 meq BID PO Last administered on 05/16/17 21:46; Admin Dose 20 MEQ; Start 05/12/17 at 10:00 Meropenem/Sodium Chloride (Merrem 1 Gm/50 ml (Pmx)) 50 ml @ 100 mls/hr Q8H IVPB Last administered on 05/17/17 05:07; Admin Dose 100 MLS/HR; Start 05/12 at 13:00 Vancomycin HCl (Vancomycin Oral Syringe) 250 mg Q6 GTB Last administered on 05:07; Admin Dose 250 MG; Start 05/13/17 at 12:00 NANDO YAO MD May 17, 2017 08:56
[2017-05-17] MEDS: BROMOCRIPTINE 2.5 MG TAB GTB SCH (09:00)
[2017-05-17] MEDS: CHLORHEXIDINE GLUCONATE 15 ML UD CUP MM SCH ×2 (09:29→20:59)
[2017-05-17] MEDS: OCULAR LUBRICANT 3.5 GM OPH OINT BOTH EYES SCH ×4 (09:29→21:00)
[2017-05-17] MEDS: FERROUS SULFATE 60 MG/ML 5ML CUP GTB SCH ×2 (09:29→20:59)
[2017-05-17] MEDS: FAMOTIDINE 20 MG TAB GTB SCH ×2 (09:30→20:59)
[2017-05-17] MEDS: POTASSIUM CHLORIDE (SR) 20 MEQ TAB PO SCH ×2 (09:30→20:59)
[2017-05-17] MEDS: DESMOPRESSIN 0.1 MG TAB GTB SCH (09:30)
[2017-05-17] MEDS: L ACIDOPHIL/B LACTIS/B LONGUM CAPSULE PEG SCH (09:30)
[2017-05-17] MEDS: ASCORBIC ACID 250 MG TAB GTB SCH ×2 (09:30→20:59)
[2017-05-17] MEDS: COLLAGENASE 30 GM TUBE TOP SCH (09:31)
[2017-05-17] MEDS: ENOXAPARIN 60 MG/0.6 ML SYG SC SCH ×2 (09:43→21:07)
[2017-05-17] MEDS: HYDROCORTISONE 20 MG TAB GTB SCH (09:43)
--- NOTE | 2017-05-17 10:24 | CONS ---
Date/Time of Note Date/Time of Note DATE: 05/17/17 TIME: 10:22 Assessment/Plan Assessment/Plan Additional Assessment/Plan 1. Non Oliguric Acute kidney injury due to septic shock -Improved 2. Hypernaremia- resolved 3. Septic shock on levophed - Resolved 4. Acute on chronic resp failure s/p Tracheostomy- on ventilator, pulmonary has been following 5. H/o Fungal meningitis, currently comatose 6. 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 Hypokalemia Plan: Na 138 with DDAVP to 0.05 daily , K replacement protocol, pt will getting KCL 30mEQ IV x 1 today ID, pulmonary has been following , on IV meropenem and IV acyclovir , amphotericin is stopped on 05/16/17- Hypokalemia was due to amphotericiin induced K defect will follow up Consultation Date/Type/Reason Admit Date/Time Apr 25, 2017 at 12:31 Initial Consult Date 04/25/17 Type of Consultation: NEPHROLOGY Referring Provider: HELEN CASTELLANO MD Exam/Review of Systems Vital Signs Vitals Vital Signs Date Time Temp Pulse Resp B/P Pulse Ox O2 Delivery O2 Flow Rate FiO2 05/17/17 09:12 92 05/17/17 07:30 16 99 30 05/17/17 07:24 98.2 115/77 05/13/17 15:41 Mechanical Ventilator Intake and Output 05/16/17 05/16/17 05/17/17 15:00 23:00 07:00 Intake Total 1150 ml 1250 ml Output Total 2000 ml 1800 ml Balance -850 ml -550 ml Exam Constitutional: non-verbal Neck: other (Tracheostomy), supple Respiratory: diminished breath sounds Cardiovascular: nl pulses Gastrointestinal: non-tender, other (G-tube), soft Extremities: normal pulses Results Result Diagram: 05/17/17 0703 05/17/17 0703 Results 24 hrs Laboratory Tests Test 05/16/17 10:50 05/17/17 07:03 CSF Tubes Submitted 3 CSF Volume 8.0 CSF Appearance CLEAR CSF Color COLORLESS CSF WBC 4 CSF RBC 0 CSF Cell Count Tube # TUBE#3 CSF Mononuclear Cells % (Auto) 75.0 CSF Polynuclear WBCs (%) 25.0 CSF Glucose 80 CSF Total Protein 127 H White Blood Count 6.7 Red Blood Count 2.93 L Hemoglobin 8.2 L Hematocrit 25.8 L Mean Corpuscular Volume 88.1 Mean Corpuscular Hemoglobin 28.0 L Mean Corpuscular Hemoglobin Concent 31.8 L Red Cell Distribution Width 13.7 Platelet Count 239 Mean Platelet Volume 11.4 H Neutrophils % 71.4 Lymphocytes % 13.7 L Monocytes % 12.6 H Eosinophils % 0.6 Basophils % 0.7 Nucleated Red Blood Cells % 0.0 Neutrophils # 4.8 Lymphocytes # 0.9 Monocytes # 0.9 Eosinophils # 0.0 Basophils # 0.1 Nucleated Red Blood Cells # 0.0 Sodium Level 138 Potassium Level 2.8 *L Chloride Level 99 Carbon Dioxide Level 30 Anion Gap 12 Blood Urea Nitrogen 8 Creatinine 0.40 L Glucose Level 101 Calcium Level 9.5 Medications Medications Current Medications Acetaminophen (Tylenol Liquid) 650 mg Q4 PRN GTB PAIN AND OR ELEVATED TEMP Last administered on 05/16/17 13:08; Admin Dose 650 MG; Start 04/25/17 at 23: 00 Eye Lubricant (Akwa Oint) 1 applic QID BOTH EYES Last administered on 09:29; Admin Dose 1 APPLIC; Start 04/26/17 at 09:00 Bromocriptine Mesylate (Parlodel) 30 mg DAILY GTB Last administered on 09:01; Admin Dose 30 MG; Start 04/26/17 at 09:00 Chlorhexidine Gluconate (Peridex) 15 ml BID MM Last administered on 05/17/17 09:29; Admin Dose 15 ML; Start 04/26/17 at 09:00 Ferrous Sulfate (Feosol Liquid Cup) 300 mg BID GTB Last administered on 09:29; Admin Dose 300 MG; Start 04/26/17 at 09:00 Hydrocortisone (Cortef) 20 mg DAILY GTB Last administered on 05/17/17 09:43; Admin Dose 20 MG; Start 04/26/17 at 09:00 Ondansetron HCl (Zofran Tab) 4 mg Q8 PRN GTB NAUSEA AND/OR VOMITING; Start at 23:00 Lactobacillus Acidophilus (Florajen3 Capsule) 1 each DAILY PEG Last administered on 05/17/17 09:30; Admin Dose 1 EACH; Start 04/26/17 at 09:00 Ascorbic Acid (Vitamin C) 250 mg BID GTB Last administered on 05/17/17 09:30 ; Admin Dose 250 MG; Start 04/26/17 at 09:00 Famotidine (Pepcid) 20 mg BID GTB Last administered on 05/17/17 09:30; Admin Dose 20 MG; Start 04/26/17 at 09:00 Morphine Sulfate (morphine) 2 mg Q4H PRN IV PAIN Last administered on 14:46; Admin Dose 2 MG; Start 04/26/17 at 16:30 Posaconazole (Noxafil) 400 mg Q8 PO Last administered on 05/17/17 05:07; Admin Dose 400 MG; Start 04/30/17 at 22:00 Ergocalciferol (Drisdol Liquid (Ped)) 50,000 units Q7D GTB Last administered on 05/16/17 09:02; Admin Dose 50,000 UNITS; Start 05/02/17 at 09:30 Enoxaparin Sodium (Lovenox) 50 mg Q12 SC Last administered on 05/17/17 09:43 ; Admin Dose 50 MG; Start 05/03/17 at 09:30 Diphenoxylate HCl/ Atropine (Lomotil Liquid Cup) 5 ml Q6H PRN PO DIARRHEA; Start 05/03/17 at 18:00 Collagenase (Santyl) 1 applic DAILY TOP Last administered on 05/17/17 09:31; Admin Dose 1 APPLIC; Start 05/04/17 at 14:30 Desmopressin Acetate 0.05 mg 0.05 mg DAILY GTB Last administered on 05/17/17 09:30; Admin Dose 0.05 MG; Start 05/07/17 at 09:00 Acyclovir/Sodium Chloride (Zovirax/NS) 100 ml @ 100 mls/hr Q8 IVPB Last administered on 05/17/17 05:07; Admin Dose 100 MLS/HR; Start 05/07/17 at 14:00 Potassium Chloride 20 meq 20 meq BID PO Last administered on 05/17/17 09:30; Admin Dose 20 MEQ; Start 05/12/17 at 10:00 Meropenem/Sodium Chloride (Merrem 1 Gm/50 ml (Pmx)) 50 ml @ 100 mls/hr Q8H IVPB Last administered on 05/17/17 05:07; Admin Dose 100 MLS/HR; Start 05/12 at 13:00 Vancomycin HCl (Vancomycin Oral Syringe) 250 mg Q6 GTB Last administered on 05:07; Admin Dose 250 MG; Start 05/13/17 at 12:00 FARHAT RUBIO MD May 17, 2017 10:24
--- NOTE | 2017-05-17 10:38 | CONS ---
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 CSF from the shunt on 05/15/2017 had WBC 11 (91% mono, 9 % lymph), glu=76, ovmtaon=023, 05/16/2017 had WBC 4 (75% mono, 25 % lymph), glu=80 , deacfts=445 (last LP on record at [facility] on 03/31/2017: WBC 4 33% PMNs, RBC 16, glu <10, protein >2,000) - h/o disseminated coccidioides mycosis infection, meningitis. - coccidioides CF 14:8 on 03/21/2017, CF 1:16 on 04/26/2017 - posaconazole trough level 0.32 on 04/27/2017, the dose was increased on 2016. The repeat level 0/37 on 05/07/2017 - CSF, last LP on record at [facility] on 03/31/2017: WBC 4 33% PMNs, RBC 16, glu <10, protein >2,000. - C diff colitis, recurrent - septic shock due to pneumonia and UTI - UTI due to ESBL+E. coli. Took pip/tazo and then meropenem - b/l pneumonia due to klebsiella, EBL+E. coli. - severe herpes labialis - indurated and fluctuant lower lip and mandible - s/p VPS placement - VDRF s/p tracheostomy - PEG dependet status - pancytopenia, due to septic shock on admission, improved - thrombocytopenia, improved recommendations Note: RADHA May informed me at 12:45 on 05/16/2017 that the laboratory had incorrectly reported Pt's WBC=11,000 in CSF from 05/15/2017. This was corrected to WBC=11, not 11,000 on 05/16/2017 - pending results: CSF (culture, VDRL, enterovirus PCR, coccidioides compliment fixation, fungus culture, herpes simplex virus PCR, West Nile virus IgM/IgG, cryptococcus antigen) - I ordered wound culture from the lower lip and CT with IV contrast to r/o abscess of the lower lip and mandible - continue posaconazole to 400 mg q8hrs (posaconazole trough level 0.32 on 2016, the dose was increased on 04/29/2017) - continue meropenem (restart 05/09/2017-) for empiric sepsis management - continue IV acyclovir (05/07/2017-) for herpes labialis but also for possible herpes encephalitis - no topical acyclovir available on [facility] - continue pGT vancomycin (05/07/2017-) for C diff colitis - enteric and droplet contact precautions for C diff colitis and ESBL+E. 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 Nurys, lab support service tech the total time I took to care for this Pt today was 45 min the critical care time I took to care for this Pt today was from 0950 to 1145 Problems: Consultation Date/Type/Reason Admit Date/Time Apr 25, 2017 at 12:31 Initial Consult Date 04/25/17 Type of Consultation: ID Referring Provider: HELEN CASTELLANO MD 24 HR Interval Summary Subjective hx not possible: pt non-verbal Exam/Review of Systems Vital Signs Vitals Vital Signs Date Time Temp Pulse Resp B/P Pulse Ox O2 Delivery O2 Flow Rate FiO2 05/17/17 09:30 100 18 98 30 05/17/17 07:24 98.2 115/77 05/13/17 15:41 Mechanical Ventilator Intake and Output 05/16/17 05/16/17 05/17/17 15:00 23:00 07:00 Intake Total 1150 ml 1250 ml Output Total 2000 ml 1800 ml Balance -850 ml -550 ml Exam Constitutional: frail, non-verbal Psych: confusion Head: atraumatic, normocephalic Eyes: nl conjunctiva, nl lids, nl sclera ENMT: nl external ears & nose, other (ulcer on the lower lip, palpable lip and hard mandible) Neck: other (trach) Respiratory: crackles/rales Cardiovascular: other (tachycardic, regular) Gastrointestinal: non-tender, soft Genitourinary - Male: other (FC) Musculoskeletal: nl extremities to inspection Extremities: No edema Neurological: lethargic, unresponsive Skin: nl turgor Results Result Diagram: 05/17/17 0703 05/17/17 0703 Results 24 hrs Laboratory Tests Test 05/16/17 10:50 05/17/17 07:03 CSF Tubes Submitted 3 CSF Volume 8.0 CSF Appearance CLEAR CSF Color COLORLESS CSF WBC 4 CSF RBC 0 CSF Cell Count Tube # TUBE#3 CSF Mononuclear Cells % (Auto) 75.0 CSF Polynuclear WBCs (%) 25.0 CSF Glucose 80 CSF Total Protein 127 H White Blood Count 6.7 Red Blood Count 2.93 L Hemoglobin 8.2 L Hematocrit 25.8 L Mean Corpuscular Volume 88.1 Mean Corpuscular Hemoglobin 28.0 L Mean Corpuscular Hemoglobin Concent 31.8 L Red Cell Distribution Width 13.7 Platelet Count 239 Mean Platelet Volume 11.4 H Neutrophils % 71.4 Lymphocytes % 13.7 L Monocytes % 12.6 H Eosinophils % 0.6 Basophils % 0.7 Nucleated Red Blood Cells % 0.0 Neutrophils # 4.8 Lymphocytes # 0.9 Monocytes # 0.9 Eosinophils # 0.0 Basophils # 0.1 Nucleated Red Blood Cells # 0.0 Sodium Level 138 Potassium Level 2.8 *L Chloride Level 99 Carbon Dioxide Level 30 Anion Gap 12 Blood Urea Nitrogen 8 Creatinine 0.40 L Glucose Level 101 Calcium Level 9.5 Medications Medications Current Medications Acetaminophen (Tylenol Liquid) 650 mg Q4 PRN GTB PAIN AND OR ELEVATED TEMP Last administered on 05/16/17 13:08; Admin Dose 650 MG; Start 04/25/17 at 23: 00 Eye Lubricant (Akwa Oint) 1 applic QID BOTH EYES Last administered on 09:29; Admin Dose 1 APPLIC; Start 04/26/17 at 09:00 Bromocriptine Mesylate (Parlodel) 30 mg DAILY GTB Last administered on 09:01; Admin Dose 30 MG; Start 04/26/17 at 09:00 Chlorhexidine Gluconate (Peridex) 15 ml BID MM Last administered on 05/17/17 09:29; Admin Dose 15 ML; Start 04/26/17 at 09:00 Ferrous Sulfate (Feosol Liquid Cup) 300 mg BID GTB Last administered on 09:29; Admin Dose 300 MG; Start 04/26/17 at 09:00 Hydrocortisone (Cortef) 20 mg DAILY GTB Last administered on 05/17/17 09:43; Admin Dose 20 MG; Start 04/26/17 at 09:00 Ondansetron HCl (Zofran Tab) 4 mg Q8 PRN GTB NAUSEA AND/OR VOMITING; Start at 23:00 Lactobacillus Acidophilus (Florajen3 Capsule) 1 each DAILY PEG Last administered on 05/17/17 09:30; Admin Dose 1 EACH; Start 04/26/17 at 09:00 Ascorbic Acid (Vitamin C) 250 mg BID GTB Last administered on 05/17/17 09:30 ; Admin Dose 250 MG; Start 04/26/17 at 09:00 Famotidine (Pepcid) 20 mg BID GTB Last administered on 05/17/17 09:30; Admin Dose 20 MG; Start 04/26/17 at 09:00 Morphine Sulfate (morphine) 2 mg Q4H PRN IV PAIN Last administered on 14:46; Admin Dose 2 MG; Start 04/26/17 at 16:30 Posaconazole (Noxafil) 400 mg Q8 PO Last administered on 05/17/17 05:07; Admin Dose 400 MG; Start 04/30/17 at 22:00 Ergocalciferol (Drisdol Liquid (Ped)) 50,000 units Q7D GTB Last administered on 05/16/17 09:02; Admin Dose 50,000 UNITS; Start 05/02/17 at 09:30 Enoxaparin Sodium (Lovenox) 50 mg Q12 SC Last administered on 05/17/17 09:43 ; Admin Dose 50 MG; Start 05/03/17 at 09:30 Diphenoxylate HCl/ Atropine (Lomotil Liquid Cup) 5 ml Q6H PRN PO DIARRHEA; Start 05/03/17 at 18:00 Collagenase (Santyl) 1 applic DAILY TOP Last administered on 05/17/17 09:31; Admin Dose 1 APPLIC; Start 05/04/17 at 14:30 Desmopressin Acetate 0.05 mg 0.05 mg DAILY GTB Last administered on 05/17/17 09:30; Admin Dose 0.05 MG; Start 05/07/17 at 09:00 Acyclovir/Sodium Chloride (Zovirax/NS) 100 ml @ 100 mls/hr Q8 IVPB Last administered on 05/17/17 05:07; Admin Dose 100 MLS/HR; Start 05/07/17 at 14:00 Potassium Chloride 20 meq 20 meq BID PO Last administered on 05/17/17 09:30; Admin Dose 20 MEQ; Start 05/12/17 at 10:00 Meropenem/Sodium Chloride (Merrem 1 Gm/50 ml (Pmx)) 50 ml @ 100 mls/hr Q8H IVPB Last administered on 05/17/17 05:07; Admin Dose 100 MLS/HR; Start 05/12 at 13:00 Vancomycin HCl (Vancomycin Oral Syringe) 250 mg Q6 GTB Last administered on 05:07; Admin Dose 250 MG; Start 05/13/17 at 12:00 ELENI EVANS M.D. May 17, 2017 10:38
[2017-05-17] MEDS ORDERED: IOHEXOL 300MG/ML 150 ML BTL ONE (11:29)
[2017-05-17] MEDS ORDERED: SOD CHLORIDE 0.9% 100 ML ONE (11:29)
--- NOTE | 2017-05-17 12:38 | RADRPT ---
PROCEDURE: CT scan facial bones with contrast CLINICAL INDICATION: Swollen lower lip and fluctuance . Evaluate for abscess. TECHNIQUE: CT scan of the face was performed on the a high-resolution multidetector CT scanner wit h multiple contiguous axial images obtained through the face. 80 cc of Omnipaque-300 was administere d intravenously without immediate complications. Coronal and sagittal reformatted images were obtai sariah from the axial source images. Exam CTDI = 53.78 mGy and the DLP = 1092.59 mGy-cm. One or more of the following dose reduction techniques were used: Automated exposure control. Adjustment of the mA and/or kV according to patient size. Use of iterative reconstruction technique. COMPARISON: CT head 05/13/2017 FINDINGS: Mild soft tissue swelling of the lower lip and enhancement without drainable fluid collection. The f acial bones are intact. No fracture or dislocation is seen. The orbital globes are unremarkable.T he zygomatic arches are symmetrically normal. Nasal septum is midline. Layering fluid is seen in th e sphenoid sinuses. Mild mucosal thickening is seen in the remainder of the paranasal sinuses. Large area of confluent hypoattenuation is seen in bilateral lentiform nucleus and thalami. Chronic lacun ar infarct is seen in the right anterior saniya. A ventriculostomy catheter terminates in the frontal horn of the right lateral ventricle. Tracheostomy is in place. Secretion is seen in the infraglottic larynx. IMPRESSION: 1. Soft tissue swelling and enhancement without drainable fluid collection in the lower lip. RPTAT: BB .Eli Peter MD, Date Time Electronically viewed and signed by .Eli Peter MD, MD on 05/17/2017 12:38 .O/
[2017-05-17] MEDS: POTASSIUM CHLORIDE 50 ML IVPB PRN ×3 (14:26→15:41)
[2017-05-17] MEDS ORDERED: MAGNESIUM SULFATE 2 GM/50 ML 50 ML IVPB ONE (15:00)
[2017-05-17] MEDS ORDERED: POTASSIUM CHLORIDE 20 MEQ POWDER FOR ORAL SOLN GTB ONE (15:00)
--- NOTE | 2017-05-17 16:42 | CONS ---
Date/Time of Note Date/Time of Note DATE: 05/17/17 TIME: 16:39 Assessment/Plan Assessment/Plan Additional Assessment/Plan Disseminated coccidiomycosis Pneumonia Sepsis Vent dependent respiratory failure Encephalopathy DVT -Blood pressure trend overall stable. Supplement potassium to maintain above 4.0 and magnesium above 2.0. Consultation Date/Type/Reason Admit Date/Time Apr 25, 2017 at 12:31 Initial Consult Date 04/25/17 Type of Consultation: cv Referring Provider: HELEN CASTELLANO MD 24 HR Interval Summary Free Text/Dictation Patient seen and examined, no new cardiac issues as per nursing staff, mother at bedside Exam/Review of Systems Vital Signs Vitals Vital Signs Date Time Temp Pulse Resp B/P Pulse Ox O2 Delivery O2 Flow Rate FiO2 05/17/17 15:15 87 19 97 30 05/17/17 11:04 98.8 114/64 05/13/17 15:41 Mechanical Ventilator Intake and Output 05/16/17 05/16/17 05/17/17 15:00 23:00 07:00 Intake Total 1150 ml 1250 ml Output Total 2000 ml 1800 ml Balance -850 ml -550 ml Exam No apparent distress, mother bedside Head: normocephalic Neck: other (Trach) Respiratory: other (Coarse breath sounds bilaterally, no wheezing) Cardiovascular: other (S1-S2 heard), regular rate and rhythm Gastrointestinal: bowel sounds, non-tender, soft Extremities: other (No significant edema) Results Result Diagram: 05/17/17 0703 05/17/17 0703 Results 24 hrs Laboratory Tests Test 05/17/17 07:03 White Blood Count 6.7 Red Blood Count 2.93 L Hemoglobin 8.2 L Hematocrit 25.8 L Mean Corpuscular Volume 88.1 Mean Corpuscular Hemoglobin 28.0 L Mean Corpuscular Hemoglobin Concent 31.8 L Red Cell Distribution Width 13.7 Platelet Count 239 Mean Platelet Volume 11.4 H Neutrophils % 71.4 Lymphocytes % 13.7 L Monocytes % 12.6 H Eosinophils % 0.6 Basophils % 0.7 Nucleated Red Blood Cells % 0.0 Neutrophils # 4.8 Lymphocytes # 0.9 Monocytes # 0.9 Eosinophils # 0.0 Basophils # 0.1 Nucleated Red Blood Cells # 0.0 Sodium Level 138 Potassium Level 2.8 *L Chloride Level 99 Carbon Dioxide Level 30 Anion Gap 12 Blood Urea Nitrogen 8 Creatinine 0.40 L Glucose Level 101 Calcium Level 9.5 Medications Medications Current Medications Acetaminophen (Tylenol Liquid) 650 mg Q4 PRN GTB PAIN AND OR ELEVATED TEMP Last administered on 05/16/17 13:08; Admin Dose 650 MG; Start 04/25/17 at 23: 00 Eye Lubricant (Akwa Oint) 1 applic QID BOTH EYES Last administered on 13:02; Admin Dose 1 APPLIC; Start 04/26/17 at 09:00 Bromocriptine Mesylate (Parlodel) 30 mg DAILY GTB Last administered on 09:01; Admin Dose 30 MG; Start 04/26/17 at 09:00 Chlorhexidine Gluconate (Peridex) 15 ml BID MM Last administered on 05/17/17 09:29; Admin Dose 15 ML; Start 04/26/17 at 09:00 Ferrous Sulfate (Feosol Liquid Cup) 300 mg BID GTB Last administered on 09:29; Admin Dose 300 MG; Start 04/26/17 at 09:00 Hydrocortisone (Cortef) 20 mg DAILY GTB Last administered on 05/17/17 09:43; Admin Dose 20 MG; Start 04/26/17 at 09:00 Ondansetron HCl (Zofran Tab) 4 mg Q8 PRN GTB NAUSEA AND/OR VOMITING; Start at 23:00 Lactobacillus Acidophilus (Florajen3 Capsule) 1 each DAILY PEG Last administered on 05/17/17 09:30; Admin Dose 1 EACH; Start 04/26/17 at 09:00 Ascorbic Acid (Vitamin C) 250 mg BID GTB Last administered on 05/17/17 09:30 ; Admin Dose 250 MG; Start 04/26/17 at 09:00 Famotidine (Pepcid) 20 mg BID GTB Last administered on 05/17/17 09:30; Admin Dose 20 MG; Start 04/26/17 at 09:00 Morphine Sulfate (morphine) 2 mg Q4H PRN IV PAIN Last administered on 14:46; Admin Dose 2 MG; Start 04/26/17 at 16:30 Posaconazole (Noxafil) 400 mg Q8 PO Last administered on 05/17/17 14:00; Admin Dose 400 MG; Start 04/30/17 at 22:00 Ergocalciferol (Drisdol Liquid (Ped)) 50,000 units Q7D GTB Last administered on 05/16/17 09:02; Admin Dose 50,000 UNITS; Start 05/02/17 at 09:30 Enoxaparin Sodium (Lovenox) 50 mg Q12 SC Last administered on 05/17/17 09:43 ; Admin Dose 50 MG; Start 05/03/17 at 09:30 Diphenoxylate HCl/ Atropine (Lomotil Liquid Cup) 5 ml Q6H PRN PO DIARRHEA; Start 05/03/17 at 18:00 Collagenase (Santyl) 1 applic DAILY TOP Last administered on 05/17/17 09:31; Admin Dose 1 APPLIC; Start 05/04/17 at 14:30 Desmopressin Acetate 0.05 mg 0.05 mg DAILY GTB Last administered on 05/17/17 09:30; Admin Dose 0.05 MG; Start 05/07/17 at 09:00 Acyclovir/Sodium Chloride (Zovirax/NS) 100 ml @ 100 mls/hr Q8 IVPB Last administered on 05/17/17 13:03; Admin Dose 100 MLS/HR; Start 05/07/17 at 14:00 Potassium Chloride 20 meq 20 meq BID PO Last administered on 05/17/17 09:30; Admin Dose 20 MEQ; Start 05/12/17 at 10:00 Meropenem/Sodium Chloride (Merrem 1 Gm/50 ml (Pmx)) 50 ml @ 100 mls/hr Q8H IVPB Last administered on 05/17/17 13:03; Admin Dose 100 MLS/HR; Start 05/12 at 13:00 Vancomycin HCl 250 mg 250 mg Q6 GTB Last administered on 05/17/17 13:02; Admin Dose 250 MG; Start 05/13/17 at 12:00 Magnesium Sulfate (Magnesium Sulfate 2 Gm/50 ml) 50 ml @ 25 mls/hr ONCE ONCE IVPB Last administered on 05/17/17 16:13; Admin Dose 25 MLS/HR; Start at 15:00; Stop 05/17/17 at 16:59 Oscar Awan DO May 17, 2017 16:41
--- NOTE | 2017-05-17 18:13 | PN ---
Date/Time of Note Date/Time of Note DATE: 05/17/17 TIME: 18:07 Assessment/Plan VTE Prophylaxis VTE Prophylaxis Intervention: SCD's Lines/Catheters IV [facility]ter Type [facility]from [facility]): PICC Line Central line still needed: Yes Urinary Cath still in place: Yes Reason Cath still needed: urinary retention Assessment/Plan Chief Complaint/Hosp Course Patient remains afebrile, continues to have diarrhea. Assessment/Plan - C. difficile colitis, continue vancomycin via G-tube - Septic shock due to bilateral pneumonia and UTI, resolving. Continue antibiotics per ID. Dr Brown is following in infection disease consultation. 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 Status post [employer] shunt tap by Dr. Sandoval, neurosurgery. 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 Continue Lovenox. - Acute kidney injury, resolving. - Hypernatremia, resolved. Dr Sorensen is following in nephrology consultation. - Hypokalemia, continue k protocol. - Pancytopenia most likely secondary to sepsis - Dysphagia with PEG. Continue tube G-tube feeding - VDRF with tracheostomy - Hydrocephalus, status post [employer] shunt. - Polyuria, improving. Further recommendations based on clinical course. Plan of care discussed with Dr. Dozier Problems: Exam/Review of Systems Vital Signs Vitals Vital Signs Date Time Temp Pulse Resp B/P Pulse Ox O2 Delivery O2 Flow Rate FiO2 05/17/17 17:10 88 16 99 30 05/17/17 16:40 98.6 117/72 05/13/17 15:41 Mechanical Ventilator Intake and Output 05/16/17 05/16/17 05/17/17 15:00 23:00 07:00 Intake Total 1150 ml 1250 ml Output Total 2000 ml 1800 ml Balance -850 ml -550 ml Exam Constitutional: non-verbal Neck: other (Tracheostomy), supple Respiratory: diminished breath sounds Cardiovascular: nl pulses Gastrointestinal: non-tender, other (G-tube), soft Extremities: normal pulses Neurological: lethargic Results Result Diagram: 05/17/1770205/17/17702 Results 24 hrs Laboratory Tests Test 05/17/17 07:03 White Blood Count 6.7 Red Blood Count 2.93 L Hemoglobin 8.2 L Hematocrit 25.8 L Mean Corpuscular Volume 88.1 Mean Corpuscular Hemoglobin 28.0 L Mean Corpuscular Hemoglobin Concent 31.8 L Red Cell Distribution Width 13.7 Platelet Count 239 Mean Platelet Volume 11.4 H Neutrophils % 71.4 Lymphocytes % 13.7 L Monocytes % 12.6 H Eosinophils % 0.6 Basophils % 0.7 Nucleated Red Blood Cells % 0.0 Neutrophils # 4.8 Lymphocytes # 0.9 Monocytes # 0.9 Eosinophils # 0.0 Basophils # 0.1 Nucleated Red Blood Cells # 0.0 Sodium Level 138 Potassium Level 2.8 *L Chloride Level 99 Carbon Dioxide Level 30 Anion Gap 12 Blood Urea Nitrogen 8 Creatinine 0.40 L Glucose Level 101 Calcium Level 9.5 Medications Medications Current Medications Acetaminophen (Tylenol Liquid) 650 mg Q4 PRN GTB PAIN AND OR ELEVATED TEMP Last administered on 05/16/17 13:08; Admin Dose 650 MG; Start 04/25/17 at 23: 00 Eye Lubricant (Akwa Oint) 1 applic QID BOTH EYES Last administered on 13:02; Admin Dose 1 APPLIC; Start 04/26/17 at 09:00 Bromocriptine Mesylate (Parlodel) 30 mg DAILY GTB Last administered on 09:01; Admin Dose 30 MG; Start 04/26/17 at 09:00 Chlorhexidine Gluconate (Peridex) 15 ml BID MM Last administered on 05/17/17 09:29; Admin Dose 15 ML; Start 04/26/17 at 09:00 Ferrous Sulfate (Feosol Liquid Cup) 300 mg BID GTB Last administered on 09:29; Admin Dose 300 MG; Start 04/26/17 at 09:00 Hydrocortisone (Cortef) 20 mg DAILY GTB Last administered on 05/17/17 09:43; Admin Dose 20 MG; Start 04/26/17 at 09:00 Ondansetron HCl (Zofran Tab) 4 mg Q8 PRN GTB NAUSEA AND/OR VOMITING; Start at 23:00 Lactobacillus Acidophilus (Florajen3 Capsule) 1 each DAILY PEG Last administered on 05/17/17 09:30; Admin Dose 1 EACH; Start 04/26/17 at 09:00 Ascorbic Acid (Vitamin C) 250 mg BID GTB Last administered on 05/17/17 09:30 ; Admin Dose 250 MG; Start 04/26/17 at 09:00 Famotidine (Pepcid) 20 mg BID GTB Last administered on 05/17/17 09:30; Admin Dose 20 MG; Start 04/26/17 at 09:00 Morphine Sulfate (morphine) 2 mg Q4H PRN IV PAIN Last administered on 14:46; Admin Dose 2 MG; Start 04/26/17 at 16:30 Posaconazole (Noxafil) 400 mg Q8 PO Last administered on 05/17/17 14:00; Admin Dose 400 MG; Start 04/30/17 at 22:00 Ergocalciferol (Drisdol Liquid (Ped)) 50,000 units Q7D GTB Last administered on 05/16/17 09:02; Admin Dose 50,000 UNITS; Start 05/02/17 at 09:30 Enoxaparin Sodium (Lovenox) 50 mg Q12 SC Last administered on 05/17/17 09:43 ; Admin Dose 50 MG; Start 05/03/17 at 09:30 Diphenoxylate HCl/ Atropine (Lomotil Liquid Cup) 5 ml Q6H PRN PO DIARRHEA; Start 05/03/17 at 18:00 Collagenase (Santyl) 1 applic DAILY TOP Last administered on 05/17/17 09:31; Admin Dose 1 APPLIC; Start 05/04/17 at 14:30 Desmopressin Acetate 0.05 mg 0.05 mg DAILY GTB Last administered on 05/17/17 09:30; Admin Dose 0.05 MG; Start 05/07/17 at 09:00 Acyclovir/Sodium Chloride (Zovirax/NS) 100 ml @ 100 mls/hr Q8 IVPB Last administered on 05/17/17 13:03; Admin Dose 100 MLS/HR; Start 05/07/17 at 14:00 Potassium Chloride 20 meq 20 meq BID PO Last administered on 05/17/17 09:30; Admin Dose 20 MEQ; Start 05/12/17 at 10:00 Meropenem/Sodium Chloride (Merrem 1 Gm/50 ml (Pmx)) 50 ml @ 100 mls/hr Q8H IVPB Last administered on 05/17/17 13:03; Admin Dose 100 MLS/HR; Start 05/12 at 13:00 Vancomycin HCl (Vancomycin Oral Syringe) 250 mg Q6 GTB Last administered on t 13:02; Admin Dose 250 MG; Start 05/13/17 at 12:00 MANDIE DAVE May 17, 2017 18:13
[2017-05-18] VITALS (24 sets, daily range): BP systolic 93–120; BP diastolic 58–69; PULSE 76–95; RESP 15–21
[2017-05-18] MEDS: POSACONAZOLE PO SCH ×3 (06:13→20:55)
[2017-05-18] MEDS: ACYCLOVIR 500 MG in SOD CHLORIDE 0.9% 100 ML IVPB SCH ×3 (06:13→20:59)
[2017-05-18] MEDS: VANCOMYCIN HCL 250 MG/5ML POSYG GTB SCH ×3 (06:16→18:13)
[2017-05-18] MEDS: MEROPENEM 1 GM/50ML(PMX) 50 ML IVPB SCH ×3 (06:16→20:54)
[2017-05-18 07:40] LABS: BASOPHIL # 0.1 10^3/ul (0.0-0.1); BASOPHILS % 0.8 % (0.0-2.0); EOSINOPHILS # 0.2 10^3/ul (0.0-0.5); HEMATOCRIT 27.5 % (42.0-52.0); HEMOGLOBIN 8.9 g/dl (14.0-18.0); LYMPHOCYTES # 0.6 10^3/ul (0.8-2.9); LYMPHOCYTES % 7.9 % (15.0-51.0); MEAN CORPUSCULAR HEMOGLOBIN 29.2 pg (29.0-33.0); MEAN CORPUSCULAR HGB CONC 32.4 g/dl (32.0-37.0); MEAN CORPUSCULAR VOLUME 90.2 fl (82.0-101.0); MEAN PLATELET VOLUME 11.2 fl (7.4-10.4); MONOCYTE # 0.8 10^3/ul (0.3-0.9); MONOCYTES % 9.9 % (0.0-11.0); NEUTROPHIL # 5.9 10^3/ul (1.6-7.5); NEUTROPHILS % 78.6 % (39.0-77.0); PLATELET COUNT 241 10^3/UL (140-415); RED BLOOD COUNT 3.05 10^6/ul (4.70-6.10); WHITE BLOOD COUNT 7.6 10^3/ul (4.8-10.8)
[2017-05-18 08:11] LABS: CALCIUM 10.1 mg/dl (8.4-10.2); CREATININE 0.38 mg/dl (0.61-1.24); POTASSIUM 3.2 mmol/L (3.5-5.1)
[2017-05-18] MEDS: OCULAR LUBRICANT 3.5 GM OPH OINT BOTH EYES SCH ×4 (08:44→20:56)
[2017-05-18] MEDS: ASCORBIC ACID 250 MG TAB GTB SCH ×2 (08:44→20:56)
[2017-05-18] MEDS: HYDROCORTISONE 20 MG TAB GTB SCH (08:44)
[2017-05-18] MEDS: FERROUS SULFATE 60 MG/ML 5ML CUP GTB SCH ×2 (08:44→20:55)
[2017-05-18] MEDS: FAMOTIDINE 20 MG TAB GTB SCH ×2 (08:45→20:56)
[2017-05-18] MEDS: L ACIDOPHIL/B LACTIS/B LONGUM CAPSULE PEG SCH (08:45)
[2017-05-18] MEDS: CHLORHEXIDINE GLUCONATE 15 ML UD CUP MM SCH ×2 (08:45→20:56)
[2017-05-18] MEDS: ENOXAPARIN 60 MG/0.6 ML SYG SC SCH ×2 (08:55→21:01)
[2017-05-18] MEDS: POTASSIUM CHLORIDE 50 ML IVPB PRN ×3 (09:04→13:38)
[2017-05-18] MEDS: BROMOCRIPTINE 2.5 MG TAB GTB SCH (09:09)
[2017-05-18] MEDS: DESMOPRESSIN 0.1 MG TAB GTB SCH (09:10)
[2017-05-18] MEDS: POTASSIUM CHLORIDE 20 MEQ POWDER FOR ORAL SOLN GTB SCH ×2 (09:30→20:55)
--- NOTE | 2017-05-18 09:43 | CONS ---
Date/Time of Note Date/Time of Note DATE: 05/18/17 TIME: 09:42 Assessment/Plan Assessment/Plan Additional Assessment/Plan 1. Non Oliguric Acute kidney injury due to septic shock -Improved 2. Hypernaremia- resolved 3. Septic shock on levophed - Resolved 4. Acute on chronic resp failure s/p Tracheostomy- on ventilator, pulmonary has been following 5. H/o Fungal meningitis, currently comatose 6. 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 Hypokalemia Plan: Na 144 with DDAVP to 0.05 daily , K 3.2- on K replacement protocol ID, pulmonary has been following , on IV meropenem and IV acyclovir , amphotericin is stopped on 05/16/17- Hypokalemia was due to amphotericiin induced K defect - expecting to improve since amphotericin has been stopped. will follow up Consultation Date/Type/Reason Admit Date/Time Apr 25, 2017 at 12:31 Initial Consult Date 04/25/17 Type of Consultation: NEPHROOGY Referring Provider: HELEN CASTELLANO MD 24 HR Interval Summary Free Text/Dictation Na 144, K 3.2, On K replacement protocol Exam/Review of Systems Vital Signs Vitals Vital Signs Date Time Temp Pulse Resp B/P Pulse Ox O2 Delivery O2 Flow Rate FiO2 05/18/17 09:10 76 16 97 30 05/18/17 07:43 97.5 103/63 Intake and Output 05/17/17 05/17/17 05/18/17 15:00 23:00 07:00 Intake Total 1050 ml 1150 ml Output Total 2000 ml 1600 ml Balance -950 ml -450 ml Exam Constitutional: non-verbal Neck: other (Tracheostomy), supple Respiratory: diminished breath sounds Cardiovascular: nl pulses Gastrointestinal: non-tender, other (G-tube), soft Extremities: normal pulses Results Result Diagram: 05/18/17 0704 05/18/17 0704 Results 24 hrs Laboratory Tests Test 05/18/17 07:04 White Blood Count 7.6 Red Blood Count 3.05 L Hemoglobin 8.9 L Hematocrit 27.5 L Mean Corpuscular Volume 90.2 Mean Corpuscular Hemoglobin 29.2 Mean Corpuscular Hemoglobin Concent 32.4 Red Cell Distribution Width 14.0 Platelet Count 241 Mean Platelet Volume 11.2 H Neutrophils % 78.6 H Lymphocytes % 7.9 L Monocytes % 9.9 Eosinophils % 2.0 Basophils % 0.8 Nucleated Red Blood Cells % 0.0 Neutrophils # 5.9 Lymphocytes # 0.6 L Monocytes # 0.8 Eosinophils # 0.2 Basophils # 0.1 Nucleated Red Blood Cells # 0.0 Sodium Level 144 Potassium Level 3.2 L Chloride Level 106 Carbon Dioxide Level 28 Anion Gap 13 Blood Urea Nitrogen 10 Creatinine 0.38 L Glucose Level 120 Calcium Level 10.1 Magnesium Level 2.5 Medications Medications Current Medications Acetaminophen (Tylenol Liquid) 650 mg Q4 PRN GTB PAIN AND OR ELEVATED TEMP Last administered on 05/16/17 13:08; Admin Dose 650 MG; Start 04/25/17 at 23: 00 Eye Lubricant (Akwa Oint) 1 applic QID BOTH EYES Last administered on 08:44; Admin Dose 1 APPLIC; Start 04/26/17 at 09:00 Bromocriptine Mesylate (Parlodel) 30 mg DAILY GTB Last administered on 09:09; Admin Dose 30 MG; Start 04/26/17 at 09:00 Chlorhexidine Gluconate (Peridex) 15 ml BID MM Last administered on 05/18/17 08:45; Admin Dose 15 ML; Start 04/26/17 at 09:00 Ferrous Sulfate (Feosol Liquid Cup) 300 mg BID GTB Last administered on 08:44; Admin Dose 300 MG; Start 04/26/17 at 09:00 Hydrocortisone (Cortef) 20 mg DAILY GTB Last administered on 05/18/17 08:44; Admin Dose 20 MG; Start 04/26/17 at 09:00 Ondansetron HCl (Zofran Tab) 4 mg Q8 PRN GTB NAUSEA AND/OR VOMITING; Start at 23:00 Lactobacillus Acidophilus (Florajen3 Capsule) 1 each DAILY PEG Last administered on 05/18/17 08:45; Admin Dose 1 EACH; Start 04/26/17 at 09:00 Ascorbic Acid (Vitamin C) 250 mg BID GTB Last administered on 05/18/17 08:44 ; Admin Dose 250 MG; Start 04/26/17 at 09:00 Famotidine (Pepcid) 20 mg BID GTB Last administered on 05/18/17 08:45; Admin Dose 20 MG; Start 04/26/17 at 09:00 Morphine Sulfate (morphine) 2 mg Q4H PRN IV PAIN Last administered on 14:46; Admin Dose 2 MG; Start 04/26/17 at 16:30 Posaconazole (Noxafil) 400 mg Q8 PO Last administered on 05/18/17 06:13; Admin Dose 400 MG; Start 04/30/17 at 22:00 Ergocalciferol (Drisdol Liquid (Ped)) 50,000 units Q7D GTB Last administered on 05/16/17 09:02; Admin Dose 50,000 UNITS; Start 05/02/17 at 09:30 Enoxaparin Sodium (Lovenox) 50 mg Q12 SC Last administered on 05/18/17 08:55 ; Admin Dose 50 MG; Start 05/03/17 at 09:30 Diphenoxylate HCl/ Atropine (Lomotil Liquid Cup) 5 ml Q6H PRN PO DIARRHEA; Start 05/03/17 at 18:00 Collagenase (Santyl) 1 applic DAILY TOP Last administered on 05/17/17 09:31; Admin Dose 1 APPLIC; Start 05/04/17 at 14:30 Desmopressin Acetate 0.05 mg 0.05 mg DAILY GTB Last administered on 05/18/17 09:10; Admin Dose 0.05 MG; Start 05/07/17 at 09:00 Acyclovir 500 mg/ Sodium Chloride 100 ml @ 100 mls/hr Q8 IVPB Last administered on 05/18/17 06:13; Admin Dose 100 MLS/HR; Start 05/07/17 at 14:00 Meropenem/Sodium Chloride (Merrem 1 Gm/50 ml (Pmx)) 50 ml @ 100 mls/hr Q8H IVPB Last administered on 05/18/17 06:16; Admin Dose 100 MLS/HR; Start 05/12 at 13:00 Vancomycin HCl (Vancomycin Oral Syringe) 250 mg Q6 GTB Last administered on 06:16; Admin Dose 250 MG; Start 10/12/17 at 12:00 Potassium Chloride (Potassium Chloride Pwd/Soln) 20 meq BID GTB ; Start at 09:30; Status UNV FARHAT RUBIO MD May 18, 2017 09:43
[2017-05-18 10:00] LABS: ENTEROVIRUS - SOURCE CEREBROSPINAL FLUID
[2017-05-18] MEDS: COLLAGENASE 30 GM TUBE TOP SCH (10:36)
--- NOTE | 2017-05-18 12:21 | CONS ---
Date/Time of Note Date/Time of Note DATE: 05/18/17 TIME: 12:17 Assessment/Plan Assessment/Plan Chief Complaint/Hosp Course assessment/impression - disseminated coccidioides mycosis infection, meningitis. CSF from the shunt on 05/15/2017 had WBC 11 (91% mono, 9 % lymph), glu=76, qekrycm=719, 05/16/2017 had WBC 4 (75% mono, 25 % lymph), glu=80, [id number]=544 (last LP on record at [facility] on 03/31/2017: WBC 4 33% PMNs, RBC 16, glu <10, protein >2,000) - coccidioides CF 14:8 on 03/21/2017, CF 1:16 on 04/26/2017 - posaconazole trough level 0.32 on 04/27/2017, the dose was increased on 2016. 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 CT on 05/17/2017 showed no abscess - C diff colitis, recurrent - septic shock due to pneumonia and UTI - UTI due to ESBL+E. coli. Took pip/tazo and then meropenem - b/l pneumonia due to klebsiella, EBL+E. coli. - s/p VPS placement - VDRF s/p tracheostomy - PEG dependet status - pancytopenia, due to septic shock on admission, improved - thrombocytopenia, improved recommendations - pending results: CSF (VDRL, coccidioides compliment fixation, fungus culture, herpes simplex virus PCR, West Nile virus IgM/IgG, cryptococcus antigen), wound culture from the lower lip - continue posaconazole to 400 mg q8hrs (posaconazole trough level 0.32 on 2016, the dose was increased on 04/29/2017) - continue meropenem (restart 05/09/2017-) - continue IV acyclovir (05/07/2017-) for herpes labialis but also for possible herpes encephalitis - no topical acyclovir available on [employer] - continue pGT vancomycin (05/07/2017-) for C diff colitis - enteric and droplet contact precautions for C diff colitis and ESBL+E. 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 and mother Problems: Consultation Date/Type/Reason Admit Date/Time Apr 25, 2017 at 12:31 Initial Consult Date 04/25/17 Type of Consultation: ID Referring Provider: HELEN CASTELLANO MD 24 HR Interval Summary Subjective hx not possible: pt non-verbal Exam/Review of Systems Vital Signs Vitals Vital Signs Date Time Temp Pulse Resp B/P Pulse Ox O2 Delivery O2 Flow Rate FiO2 05/18/17 11:35 97.4 78 16 98/58 98 05/18/17 11:05 30 Intake and Output 05/17/17 05/17/17 05/18/17 15:00 23:00 07:00 Intake Total 1050 ml 1150 ml Output Total 2000 ml 1600 ml Balance -950 ml -450 ml Exam Constitutional: non-verbal Psych: confusion Head: other (s/p VPS placement) ENMT: nl external ears & nose, other (hard and swollen lower lip and chin. ulcer and eschar on the lower lip) Neck: other (trach) Respiratory: crackles/rales Cardiovascular: nl pulses, regular rate and rhythm Gastrointestinal: non-tender, other (GT), soft Musculoskeletal: nl extremities to inspection Extremities: No edema Neurological: confused, lethargic Skin: nl turgor Results Result Diagram: 05/18/17 0704 05/18/17 0704 Results 24 hrs Laboratory Tests Test 05/18/17 07:04 White Blood Count 7.6 Red Blood Count 3.05 L Hemoglobin 8.9 L Hematocrit 27.5 L Mean Corpuscular Volume 90.2 Mean Corpuscular Hemoglobin 29.2 Mean Corpuscular Hemoglobin Concent 32.4 Red Cell Distribution Width 14.0 Platelet Count 241 Mean Platelet Volume 11.2 H Neutrophils % 78.6 H Lymphocytes % 7.9 L Monocytes % 9.9 Eosinophils % 2.0 Basophils % 0.8 Nucleated Red Blood Cells % 0.0 Neutrophils # 5.9 Lymphocytes # 0.6 L Monocytes # 0.8 Eosinophils # 0.2 Basophils # 0.1 Nucleated Red Blood Cells # 0.0 Sodium Level 144 Potassium Level 3.2 L Chloride Level 106 Carbon Dioxide Level 28 Anion Gap 13 Blood Urea Nitrogen 10 Creatinine 0.38 L Glucose Level 120 Calcium Level 10.1 Magnesium Level 2.5 Medications Medications Current Medications Acetaminophen (Tylenol Liquid) 650 mg Q4 PRN GTB PAIN AND OR ELEVATED TEMP Last administered on 05/16/17t 13:08; Admin Dose 650 MG; Start 04/25/17 at 23: 00 Eye Lubricant (Akwa Oint) 1 applic QID BOTH EYES Last administered on 08:44; Admin Dose 1 APPLIC; Start 04/26/17 at 09:00 Bromocriptine Mesylate (Parlodel) 30 mg DAILY GTB Last administered on 09:09; Admin Dose 30 MG; Start 04/26/17 at 09:00 Chlorhexidine Gluconate (Peridex) 15 ml BID MM Last administered on 05/18/17 08:45; Admin Dose 15 ML; Start 04/26/17 at 09:00 Ferrous Sulfate (Feosol Liquid Cup) 300 mg BID GTB Last administered on 08:44; Admin Dose 300 MG; Start 04/26/17 at 09:00 Hydrocortisone (Cortef) 20 mg DAILY GTB Last administered on 05/18/17 08:44; Admin Dose 20 MG; Start 04/26/17 at 09:00 Ondansetron HCl (Zofran Tab) 4 mg Q8 PRN GTB NAUSEA AND/OR VOMITING; Start at 23:00 Lactobacillus Acidophilus (Florajen3 Capsule) 1 each DAILY PEG Last administered on 05/18/17 08:45; Admin Dose 1 EACH; Start 04/26/17 at 09:00 Ascorbic Acid (Vitamin C) 250 mg BID GTB Last administered on 05/18/17 08:44 ; Admin Dose 250 MG; Start 04/26/17 at 09:00 Famotidine (Pepcid) 20 mg BID GTB Last administered on 05/18/17 08:45; Admin Dose 20 MG; Start 04/26/17 at 09:00 Morphine Sulfate (morphine) 2 mg Q4H PRN IV PAIN Last administered on 14:46; Admin Dose 2 MG; Start 04/26/17 at 16:30 Posaconazole (Noxafil) 400 mg Q8 PO Last administered on 05/18/17 06:13; Admin Dose 400 MG; Start 04/30/17 at 22:00 Ergocalciferol (Drisdol Liquid (Ped)) 50,000 units Q7D GTB Last administered on 05/16/17 09:02; Admin Dose 50,000 UNITS; Start 05/02/17 at 09:30 Enoxaparin Sodium (Lovenox) 50 mg Q12 SC Last administered on 05/18/17 08:55 ; Admin Dose 50 MG; Start 05/03/17 at 09:30 Diphenoxylate HCl/ Atropine (Lomotil Liquid Cup) 5 ml Q6H PRN PO DIARRHEA; Start 05/03/17 at 18:00 Collagenase (Santyl) 1 applic DAILY TOP Last administered on 05/18/17 10:36; Admin Dose 1 APPLIC; Start 05/04/17 at 14:30 Desmopressin Acetate 0.05 mg 0.05 mg DAILY GTB Last administered on 05/18/17 09:10; Admin Dose 0.05 MG; Start 05/07/17 at 09:00 Acyclovir 500 mg/ Sodium Chloride 100 ml @ 100 mls/hr Q8 IVPB Last administered on 05/18/17 06:13; Admin Dose 100 MLS/HR; Start 05/07/17 at 14:00 Meropenem/Sodium Chloride (Merrem 1 Gm/50 ml (Pmx)) 50 ml @ 100 mls/hr Q8H IVPB Last administered on 05/18/17 06:16; Admin Dose 100 MLS/HR; Start 05/12 at 13:00 Vancomycin HCl (Vancomycin Oral Syringe) 250 mg Q6 GTB Last administered on 06:16; Admin Dose 250 MG; Start 05/13/17 at 12:00 Potassium Chloride (Potassium Chloride Pwd/Soln) 20 meq BID GTB Last administered on 05/18/17 09:30; Admin Dose 20 MEQ; Start 05/18/17 at 09:30 ELENI EVANS M.D. May 18, 2017 12:21
--- NOTE | 2017-05-18 16:02 | PN ---
Date/Time of Note Date/Time of Note DATE: 05/18/17 TIME: 16:01 Assessment/Plan VTE Prophylaxis VTE Prophylaxis Intervention: SCD's Lines/Catheters IV Catheter Type (from [facility] PICC Line Central line still needed: Yes Urinary Cath still in place: Yes Reason Cath still needed: urinary retention Assessment/Plan Chief Complaint/Hosp Course Assessment/Plan - C. difficile colitis, continue vancomycin via G-tube - Septic shock due to bilateral pneumonia and UTI, resolving. Continue antibiotics per ID. Dr Brown is following in infection disease consultation. 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 Status post ENVIRONMENTAL CONSERVATION OFFICER shunt tap by Dr. Sandoval, neurosurgery. 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 Continue Lovenox. - Acute kidney injury, resolving. - Hypernatremia, resolved. Dr Sorensen is following in nephrology consultation. - Hypokalemia, continue k protocol. - Pancytopenia most likely secondary to sepsis - Dysphagia with PEG. Continue tube G-tube feeding - VDRF with tracheostomy - Hydrocephalus, status post ENVIRONMENTAL CONSERVATION OFFICER shunt. - Polyuria, improving. Further recommendations based on clinical course. Plan of care discussed with Dr. Dozier Problems: Exam/Review of Systems Vital Signs Vitals Vital Signs Date Time Temp Pulse Resp B/P Pulse Ox O2 Delivery O2 Flow Rate FiO2 05/18/17 15:20 98 16 99 30 05/18/17 15:05 97.3 97/63 Intake and Output 05/17/17 05/17/17 05/18/17 15:00 23:00 07:00 Intake Total 1050 ml 1150 ml Output Total 2000 ml 1600 ml Balance -950 ml -450 ml Exam Constitutional: non-verbal Neck: other (Tracheostomy), supple Respiratory: diminished breath sounds Cardiovascular: nl pulses Gastrointestinal: non-tender, other (G-tube), soft Extremities: normal pulses Neurological: lethargic Results Result Diagram: 05/18/17 0704 05/18/17 0704 Results 24 hrs Laboratory Tests Test 05/18/17 07:04 White Blood Count 7.6 Red Blood Count 3.05 L Hemoglobin 8.9 L Hematocrit 27.5 L Mean Corpuscular Volume 90.2 Mean Corpuscular Hemoglobin 29.2 Mean Corpuscular Hemoglobin Concent 32.4 Red Cell Distribution Width 14.0 Platelet Count 241 Mean Platelet Volume 11.2 H Neutrophils % 78.6 H Lymphocytes % 7.9 L Monocytes % 9.9 Eosinophils % 2.0 Basophils % 0.8 Nucleated Red Blood Cells % 0.0 Neutrophils # 5.9 Lymphocytes # 0.6 L Monocytes # 0.8 Eosinophils # 0.2 Basophils # 0.1 Nucleated Red Blood Cells # 0.0 Sodium Level 144 Potassium Level 3.2 L Chloride Level 106 Carbon Dioxide Level 28 Anion Gap 13 Blood Urea Nitrogen 10 Creatinine 0.38 L Glucose Level 120 Calcium Level 10.1 Magnesium Level 2.5 Medications Medications Current Medications Acetaminophen (Tylenol Liquid) 650 mg Q4 PRN GTB PAIN AND OR ELEVATED TEMP Last administered on 05/16/17 13:08; Admin Dose 650 MG; Start 04/25/17 at 23: 00 Eye Lubricant (Akwa Oint) 1 applic QID BOTH EYES Last administered on 13:50; Admin Dose 1 APPLIC; Start 04/26/17 at 09:00 Bromocriptine Mesylate (Parlodel) 30 mg DAILY GTB Last administered on 09:09; Admin Dose 30 MG; Start 04/26/17 at 09:00 Chlorhexidine Gluconate (Peridex) 15 ml BID MM Last administered on 05/18/17 08:45; Admin Dose 15 ML; Start 04/26/17 at 09:00 Ferrous Sulfate (Feosol Liquid Cup) 300 mg BID GTB Last administered on 08:44; Admin Dose 300 MG; Start 04/26/17 at 09:00 Hydrocortisone (Cortef) 20 mg DAILY GTB Last administered on 05/18/17 08:44; Admin Dose 20 MG; Start 04/26/17 at 09:00 Ondansetron HCl (Zofran Tab) 4 mg Q8 PRN GTB NAUSEA AND/OR VOMITING; Start at 23:00 Lactobacillus Acidophilus (Florajen3 Capsule) 1 each DAILY PEG Last administered on 05/18/17 08:45; Admin Dose 1 EACH; Start 04/26/17 at 09:00 Ascorbic Acid (Vitamin C) 250 mg BID GTB Last administered on 05/18/17 08:44 ; Admin Dose 250 MG; Start 04/26/17 at 09:00 Famotidine (Pepcid) 20 mg BID GTB Last administered on 05/18/17 08:45; Admin Dose 20 MG; Start 04/26/17 at 09:00 Morphine Sulfate (morphine) 2 mg Q4H PRN IV PAIN Last administered on 14:46; Admin Dose 2 MG; Start 04/26/17 at 16:30 Posaconazole (Noxafil) 400 mg Q8 PO Last administered on 05/18/17 13:35; Admin Dose 400 MG; Start 04/30/17 at 22:00 Ergocalciferol (Drisdol Liquid (Ped)) 50,000 units Q7D GTB Last administered on 05/16/17 09:02; Admin Dose 50,000 UNITS; Start 05/02/17 at 09:30 Enoxaparin Sodium (Lovenox) 50 mg Q12 SC Last administered on 05/18/17 08:55 ; Admin Dose 50 MG; Start 05/03/17 at 09:30 Diphenoxylate HCl/ Atropine (Lomotil Liquid Cup) 5 ml Q6H PRN PO DIARRHEA; Start 05/03/17 at 18:00 Collagenase (Santyl) 1 applic DAILY TOP Last administered on 05/18/17 10:36; Admin Dose 1 APPLIC; Start 05/04/17 at 14:30 Desmopressin Acetate 0.05 mg 0.05 mg DAILY GTB Last administered on 05/18/17 09:10; Admin Dose 0.05 MG; Start 05/07/17 at 09:00 Acyclovir 500 mg/ Sodium Chloride 100 ml @ 100 mls/hr Q8 IVPB Last administered on 05/18/17 14:44; Admin Dose 100 MLS/HR; Start 05/07/17 at 14:00 Meropenem/Sodium Chloride (Merrem 1 Gm/50 ml (Pmx)) 50 ml @ 100 mls/hr Q8H IVPB Last administered on 05/18/17 13:38; Admin Dose 100 MLS/HR; Start 05/12 at 13:00 Vancomycin HCl (Vancomycin Oral Syringe) 250 mg Q6 GTB Last administered on 13:34; Admin Dose 250 MG; Start 05/13/17 at 12:00 Potassium Chloride (Potassium Chloride Pwd/Soln) 20 meq BID GTB Last administered on 05/18/17t 09:30; Admin Dose 20 MEQ; Start 05/18/17 at 09:30 MANDIE DAVE May 18, 2017 16:02
--- NOTE | 2017-05-18 16:10 | CONS ---
Date/Time of Note Date/Time of Note DATE: 05/18/17 TIME: 16:08 Assessment/Plan Assessment/Plan Additional Assessment/Plan Ventilator setting; AC of 16, tidal volume 400, PEEP of 5, 40% FiO2. Next Assessment and recommendations; 1. Patient admitted with gram-negative sepsis currently on appropriate antibiotic regimen. 2. UTI. 3. History of disseminated coccidiomycosis infection with meningeal involvement status post hydrocephalus and ELECTORATE OFFICER shunt placement. 4. Persistent vegetative state. Continue current supportive care. Gnosis remains poor. Consultation Date/Type/Reason Admit Date/Time Apr 25, 2017 at 12:31 Initial Consult Date 04/25/17 Type of Consultation: Pulmonary Referring Provider: HELEN CASTELLANO MD 24 HR Interval Summary Free Text/Dictation Patient's condition remains stable. Remains completely unresponsive due to underlying persistent vegetative state. Patient has remained hemodynamically stable. General exam; young male, on ventilator via tracheostomy, unresponsive, currently in no distress. Exam/Review of Systems Vital Signs Vitals Vital Signs Date Time Temp Pulse Resp B/P Pulse Ox O2 Delivery O2 Flow Rate FiO2 05/18/17 15:20 98 16 99 30 05/18/17 15:05 97.3 97/63 Intake and Output 05/17/17 05/17/17 05/18/17 15:00 23:00 07:00 Intake Total 1050 ml 1150 ml Output Total 2000 ml 1600 ml Balance -950 ml -450 ml Exam HEENT exam; supple neck, no JVD. No lymphadenopathy. Midline trachea. No thyromegaly. Multiple well-healed cranial scars are present. Patient has fair dentition. ELECTORATE OFFICER shunt in place. Chest exam; diminished but clear breath sounds. S1-S2 audible, no murmurs. Regular rhythm. Abdomen exam; soft, G-tube in place. No organomegaly. Bowel sounds audible. Extremity exam; no peripheral edema. WORKERS COMPENSATION CLAIMS ASSISTANT exam; patient remains unresponsive. Results Result Diagram: 05/18/1770305/18/17703 Results 24 hrs Laboratory Tests Test 05/18/17 07:04 White Blood Count 7.6 Red Blood Count 3.05 L Hemoglobin 8.9 L Hematocrit 27.5 L Mean Corpuscular Volume 90.2 Mean Corpuscular Hemoglobin 29.2 Mean Corpuscular Hemoglobin Concent 32.4 Red Cell Distribution Width 14.0 Platelet Count 241 Mean Platelet Volume 11.2 H Neutrophils % 78.6 H Lymphocytes % 7.9 L Monocytes % 9.9 Eosinophils % 2.0 Basophils % 0.8 Nucleated Red Blood Cells % 0.0 Neutrophils # 5.9 Lymphocytes # 0.6 L Monocytes # 0.8 Eosinophils # 0.2 Basophils # 0.1 Nucleated Red Blood Cells # 0.0 Sodium Level 144 Potassium Level 3.2 L Chloride Level 106 Carbon Dioxide Level 28 Anion Gap 13 Blood Urea Nitrogen 10 Creatinine 0.38 L Glucose Level 120 Calcium Level 10.1 Magnesium Level 2.5 Medications Medications Current Medications Acetaminophen (Tylenol Liquid) 650 mg Q4 PRN GTB PAIN AND OR ELEVATED TEMP Last administered on 05/16/17 13:08; Admin Dose 650 MG; Start 04/25/17 at 23: 00 Eye Lubricant (Akwa Oint) 1 applic QID BOTH EYES Last administered on 13:50; Admin Dose 1 APPLIC; Start 04/26/17 at 09:00 Bromocriptine Mesylate (Parlodel) 30 mg DAILY GTB Last administered on 09:09; Admin Dose 30 MG; Start 04/26/17 at 09:00 Chlorhexidine Gluconate (Peridex) 15 ml BID MM Last administered on 05/18/17 08:45; Admin Dose 15 ML; Start 04/26/17 at 09:00 Ferrous Sulfate (Feosol Liquid Cup) 300 mg BID GTB Last administered on 08:44; Admin Dose 300 MG; Start 04/26/17 at 09:00 Hydrocortisone (Cortef) 20 mg DAILY GTB Last administered on 05/18/17 08:44; Admin Dose 20 MG; Start 04/26/17 at 09:00 Ondansetron HCl (Zofran Tab) 4 mg Q8 PRN GTB NAUSEA AND/OR VOMITING; Start at 23:00 Lactobacillus Acidophilus (Florajen3 Capsule) 1 each DAILY PEG Last administered on 05/18/17 08:45; Admin Dose 1 EACH; Start 04/26/17 at 09:00 Ascorbic Acid (Vitamin C) 250 mg BID GTB Last administered on 05/18/17 08:44 ; Admin Dose 250 MG; Start 04/26/17 at 09:00 Famotidine (Pepcid) 20 mg BID GTB Last administered on 05/18/17 08:45; Admin Dose 20 MG; Start 04/26/17 at 09:00 Morphine Sulfate (morphine) 2 mg Q4H PRN IV PAIN Last administered on 14:46; Admin Dose 2 MG; Start 04/26/17 at 16:30 Posaconazole (Noxafil) 400 mg Q8 PO Last administered on 05/18/17 13:35; Admin Dose 400 MG; Start 04/30/17 at 22:00 Ergocalciferol (Drisdol Liquid (Ped)) 50,000 units Q7D GTB Last administered on 05/16/17 09:02; Admin Dose 50,000 UNITS; Start 05/02/17 at 09:30 Enoxaparin Sodium (Lovenox) 50 mg Q12 SC Last administered on 05/18/17 08:55 ; Admin Dose 50 MG; Start 05/03/17 at 09:30 Diphenoxylate HCl/ Atropine (Lomotil Liquid Cup) 5 ml Q6H PRN PO DIARRHEA; Start 05/03/17 at 18:00 Collagenase (Santyl) 1 applic DAILY TOP Last administered on 05/18/17 10:36; Admin Dose 1 APPLIC; Start 05/04/17 at 14:30 Desmopressin Acetate 0.05 mg 0.05 mg DAILY GTB Last administered on 05/18/17 09:10; Admin Dose 0.05 MG; Start 05/07/17 at 09:00 Acyclovir 500 mg/ Sodium Chloride 100 ml @ 100 mls/hr Q8 IVPB Last administered on 05/18/17 14:44; Admin Dose 100 MLS/HR; Start 05/07/17 at 14:00 Meropenem/Sodium Chloride (Merrem 1 Gm/50 ml (Pmx)) 50 ml @ 100 mls/hr Q8H IVPB Last administered on 05/18/17 13:38; Admin Dose 100 MLS/HR; Start 05/12 at 13:00 Vancomycin HCl (Vancomycin Oral Syringe) 250 mg Q6 GTB Last administered on 13:34; Admin Dose 250 MG; Start 05/13/17 at 12:00 Potassium Chloride (Potassium Chloride Pwd/Soln) 20 meq BID GTB Last administered on 05/18/17t 09:30; Admin Dose 20 MEQ; Start 05/18/17 at 09:30 CHITO WALLS May 18, 2017 16:10
[2017-05-18 16:41] LABS: VDRL, CSF NON-REACTIVE
[2017-05-19] VITALS (24 sets, daily range): BP systolic 104–128; BP diastolic 62–90; PULSE 81–112; RESP 16–21
[2017-05-19] MEDS: VANCOMYCIN HCL 250 MG/5ML POSYG GTB SCH ×4 (00:45→17:26)
[2017-05-19] MEDS: ACYCLOVIR 500 MG in SOD CHLORIDE 0.9% 100 ML IVPB SCH ×3 (05:46→21:13)
[2017-05-19] MEDS: POSACONAZOLE PO SCH ×3 (05:46→21:13)
[2017-05-19] MEDS: MEROPENEM 1 GM/50ML(PMX) 50 ML IVPB SCH ×3 (05:46→21:13)
[2017-05-19 07:45] LABS: CALCIUM 10.3 mg/dl (8.4-10.2); CREATININE 0.39 mg/dl (0.61-1.24); POTASSIUM 3.4 mmol/L (3.5-5.1)
[2017-05-19] MEDS: CHLORHEXIDINE GLUCONATE 15 ML UD CUP MM SCH ×2 (09:19→21:14)
[2017-05-19] MEDS: FERROUS SULFATE 60 MG/ML 5ML CUP GTB SCH ×2 (09:19→21:13)
[2017-05-19] MEDS: L ACIDOPHIL/B LACTIS/B LONGUM CAPSULE PEG SCH (09:19)
[2017-05-19] MEDS: DESMOPRESSIN 0.1 MG TAB GTB SCH (09:19)
[2017-05-19] MEDS: POTASSIUM CHLORIDE 20 MEQ POWDER FOR ORAL SOLN GTB SCH ×2 (09:19→21:31)
[2017-05-19] MEDS: ASCORBIC ACID 250 MG TAB GTB SCH ×2 (09:20→21:14)
[2017-05-19] MEDS: FAMOTIDINE 20 MG TAB GTB SCH ×2 (09:20→21:14)
[2017-05-19] MEDS: BROMOCRIPTINE 2.5 MG TAB GTB SCH (09:20)
[2017-05-19] MEDS: HYDROCORTISONE 20 MG TAB GTB SCH (09:20)
[2017-05-19] MEDS: OCULAR LUBRICANT 3.5 GM OPH OINT BOTH EYES SCH ×4 (09:21→21:31)
[2017-05-19] MEDS: ENOXAPARIN 60 MG/0.6 ML SYG SC SCH ×2 (09:53→21:15)
--- NOTE | 2017-05-19 10:06 | CONS ---
Date/Time of Note Date/Time of Note DATE: 05/19/17 TIME: 10:02 Assessment/Plan Assessment/Plan Chief Complaint/Hosp Course assessment/impression - disseminated coccidioides mycosis infection, meningitis. CSF from the shunt on 05/15/2017 had WBC 11 (91% mono, 9 % lymph), glu=76, cwbrfwe=375, 05/16/2017 had WBC 4 (75% mono, 25 % lymph), glu=80, cempszb=291 (last LP on record at [facility] on 03/31/2017: WBC 4 33% PMNs, RBC 16, glu <10, protein >2,000) - coccidioides CF 14:8 on 03/21/2017, CF 1:16 on 04/26/2017 - posaconazole trough level 0.32 on 04/27/2017, the dose was increased on 2016. 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 CT on 05/17/2017 showed no abscess - C diff colitis, recurrent - septic shock due to pneumonia and UTI - UTI due to ESBL+E. coli. Took pip/tazo and then meropenem - b/l pneumonia due to klebsiella, EBL+E. coli. - s/p VPS placement - VDRF s/p tracheostomy - PEG dependet status - pancytopenia, due to septic shock on admission, improved - thrombocytopenia, improved recommendations - pending results: CSF (VDRL, coccidioides compliment fixation, fungus culture, herpes simplex virus PCR, West Nile virus IgM/IgG, cryptococcus antigen), serum (histo antibody), wound culture from the lower lip (gram negative so far) - continue meropenem (restart 05/09/2017-) to cover UTI, pneumonia and infection of the lower lip and chin due to Gram negative bacteria - continue IV acyclovir (05/07/2017-) for herpes labialis but also for possible herpes encephalitis while waiting for HSV PCR in CSF - continue pGT vancomycin (05/07/2017-) for C diff colitis - enteric and droplet contact precautions for C diff colitis and ESBL+E. coli in sputum culture respectively Problems: Consultation Date/Type/Reason Admit Date/Time Apr 25, 2017 at 12:31 Initial Consult Date 04/25/17 Type of Consultation: ID Referring Provider: HELEN CASTELLANO MD 24 HR Interval Summary Subjective hx not possible: pt non-verbal Exam/Review of Systems Vital Signs Vitals Vital Signs Date Time Temp Pulse Resp B/P Pulse Ox O2 Delivery O2 Flow Rate FiO2 05/19/17 09:09 112 05/19/17 09:07 16 100 30 05/19/17 07:59 97.9 108/62 Intake and Output 05/18/17 05/18/17 05/19/17 15:00 23:00 07:00 Intake Total 450 ml 1350 ml 1150 ml Output Total 1300 ml 1650 ml Balance 450 ml 50 ml -500 ml Exam Constitutional: frail, non-verbal Psych: confusion Head: other (s/p VPS placement) Eyes: nl conjunctiva, nl lids ENMT: nl external ears & nose, other (indurated lower lip and chin, eschar and ulcer of the lower lip too) Neck: other (trach) Cardiovascular: nl pulses, regular rate and rhythm Gastrointestinal: non-tender, other (GT), soft, No tender Genitourinary - Male: other (FC) Extremities: normal pulses, No edema Neurological: confused, lethargic Skin: nl turgor Results Result Diagram: 05/18/17 0704 05/19/17 0649 Results 24 hrs Laboratory Tests Test 05/19/17 06:49 Sodium Level 147 H Potassium Level 3.4 L Chloride Level 107 Carbon Dioxide Level 30 Anion Gap 13 Blood Urea Nitrogen 9 Creatinine 0.39 L Glucose Level 105 Calcium Level 10.3 H Medications Medications Current Medications Acetaminophen (Tylenol Liquid) 650 mg Q4 PRN GTB PAIN AND OR ELEVATED TEMP Last administered on 05/16/17 13:08; Admin Dose 650 MG; Start 04/25/17 at 23: 00 Eye Lubricant (Akwa Oint) 1 applic QID BOTH EYES Last administered on 09:21; Admin Dose 1 APPLIC; Start 04/26/17 at 09:00 Bromocriptine Mesylate (Parlodel) 30 mg DAILY GTB Last administered on 09:20; Admin Dose 30 MG; Start 04/26/17 at 09:00 Chlorhexidine Gluconate (Peridex) 15 ml BID MM Last administered on 05/19/17 09:19; Admin Dose 15 ML; Start 04/26/17 at 09:00 Ferrous Sulfate (Feosol Liquid Cup) 300 mg BID GTB Last administered on 09:19; Admin Dose 300 MG; Start 04/26/17 at 09:00 Hydrocortisone (Cortef) 20 mg DAILY GTB Last administered on 05/19/17 09:20; Admin Dose 20 MG; Start 04/26/17 at 09:00 Ondansetron HCl (Zofran Tab) 4 mg Q8 PRN GTB NAUSEA AND/OR VOMITING; Start at 23:00 Lactobacillus Acidophilus (Florajen3 Capsule) 1 each DAILY PEG Last administered on 05/19/17 09:19; Admin Dose 1 EACH; Start 04/26/17 at 09:00 Ascorbic Acid (Vitamin C) 250 mg BID GTB Last administered on 05/19/17 09:20 ; Admin Dose 250 MG; Start 04/26/17 at 09:00 Famotidine (Pepcid) 20 mg BID GTB Last administered on 05/19/17 09:20; Admin Dose 20 MG; Start 04/26/17 at 09:00 Morphine Sulfate (morphine) 2 mg Q4H PRN IV PAIN Last administered on 14:46; Admin Dose 2 MG; Start 04/26/17 at 16:30 Posaconazole (Noxafil) 400 mg Q8 PO Last administered on 05/19/17 05:46; Admin Dose 400 MG; Start 04/30/17 at 22:00 Ergocalciferol (Drisdol Liquid (Ped)) 50,000 units Q7D GTB Last administered on 05/16/17 09:02; Admin Dose 50,000 UNITS; Start 05/02/17 at 09:30 Enoxaparin Sodium (Lovenox) 50 mg Q12 SC Last administered on 05/19/17 09:53 ; Admin Dose 50 MG; Start 05/03/17 at 09:30 Diphenoxylate HCl/ Atropine (Lomotil Liquid Cup) 5 ml Q6H PRN PO DIARRHEA; Start 05/03/17 at 18:00 Collagenase (Santyl) 1 applic DAILY TOP Last administered on 05/18/17 10:36; Admin Dose 1 APPLIC; Start 05/04/17 at 14:30 Desmopressin Acetate 0.05 mg 0.05 mg DAILY GTB Last administered on 05/19/17 09:19; Admin Dose 0.05 MG; Start 05/07/17 at 09:00 Acyclovir 500 mg/ Sodium Chloride 100 ml @ 100 mls/hr Q8 IVPB Last administered on 05/19/17 05:46; Admin Dose 100 MLS/HR; Start 05/07/17 at 14:00 Meropenem/Sodium Chloride (Merrem 1 Gm/50 ml (Pmx)) 50 ml @ 100 mls/hr Q8H IVPB Last administered on 05/19/17 05:46; Admin Dose 100 MLS/HR; Start 05/12 at 13:00 Vancomycin HCl (Vancomycin Oral Syringe) 250 mg Q6 GTB Last administered on 05:45; Admin Dose 250 MG; Start 05/13/17 at 12:00 Potassium Chloride (Potassium Chloride Pwd/Soln) 20 meq BID GTB Last administered on 05/19/17 09:19; Admin Dose 20 MEQ; Start 05/18/17 at 09:30 ELENI EVANS M.D. May 19, 2017 10:06
[2017-05-19] MEDS: COLLAGENASE 30 GM TUBE TOP SCH (10:18)
--- NOTE | 2017-05-19 16:11 | PN ---
Date/Time of Note Date/Time of Note DATE: 05/19/17 TIME: 16:09 Assessment/Plan VTE Prophylaxis VTE Prophylaxis Intervention: SCD's Lines/Catheters IV [facility] PICC Line Central line still needed: Yes Urinary Cath still in place: Yes Reason Cath still needed: urinary retention Assessment/Plan Chief Complaint/Hosp Course Patient continues to have diarrhea however decreased in frequency, remains afebrile. Assessment/Plan - C. difficile colitis, continue vancomycin via G-tube - Septic shock due to bilateral pneumonia and UTI, resolving. Continue antibiotics per ID. Dr Brown is following in infection disease consultation. 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 Status post [employer] shunt tap by Dr. Sandoval, neurosurgery. 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 Continue Lovenox. - Acute kidney injury, resolving. - Hypernatremia, resolved. Dr Sorensen is following in nephrology consultation. - Hypokalemia, continue k protocol. - Pancytopenia most likely secondary to sepsis - Dysphagia with PEG. Continue tube G-tube feeding - VDRF with tracheostomy - Hydrocephalus, status post [employer] shunt. - Polyuria, improving. Further recommendations based on clinical course. Plan of care discussed with Dr. Dozier Problems: Exam/Review of Systems Vital Signs Vitals Vital Signs Date Time Temp Pulse Resp B/P Pulse Ox O2 Delivery O2 Flow Rate FiO2 05/19/17 15:26 97.6 91 17 125/77 99 05/19/17 15:14 30 Intake and Output 05/18/17 05/18/17 05/19/17 15:00 23:00 07:00 Intake Total 450 ml 1350 ml 1150 ml Output Total 1300 ml 1650 ml Balance 450 ml 50 ml -500 ml Exam Constitutional: non-verbal Neck: other (Tracheostomy), supple Respiratory: diminished breath sounds Cardiovascular: nl pulses Gastrointestinal: non-tender, other (G-tube), soft Extremities: normal pulses Neurological: lethargic Results Result Diagram: 05/18/17 0704 05/19/17 0649 Results 24 hrs Laboratory Tests Test 05/19/17 06:49 Sodium Level 147 H Potassium Level 3.4 L Chloride Level 107 Carbon Dioxide Level 30 Anion Gap 13 Blood Urea Nitrogen 9 Creatinine 0.39 L Glucose Level 105 Calcium Level 10.3 H Medications Medications Current Medications Acetaminophen (Tylenol Liquid) 650 mg Q4 PRN GTB PAIN AND OR ELEVATED TEMP Last administered on 05/16/17 13:08; Admin Dose 650 MG; Start 04/25/17 at 23: 00 Eye Lubricant (Akwa Oint) 1 applic QID BOTH EYES Last administered on 12:26; Admin Dose 1 APPLIC; Start 04/26/17 at 09:00 Bromocriptine Mesylate (Parlodel) 30 mg DAILY GTB Last administered on 09:20; Admin Dose 30 MG; Start 04/26/17 at 09:00 Chlorhexidine Gluconate (Peridex) 15 ml BID MM Last administered on 05/19/17 09:19; Admin Dose 15 ML; Start 04/26/17 at 09:00 Ferrous Sulfate (Feosol Liquid Cup) 300 mg BID GTB Last administered on 09:19; Admin Dose 300 MG; Start 04/26/17 at 09:00 Hydrocortisone (Cortef) 20 mg DAILY GTB Last administered on 05/19/17 09:20; Admin Dose 20 MG; Start 04/26/17 at 09:00 Ondansetron HCl (Zofran Tab) 4 mg Q8 PRN GTB NAUSEA AND/OR VOMITING; Start at 23:00 Lactobacillus Acidophilus (Florajen3 Capsule) 1 each DAILY PEG Last administered on 05/19/17 09:19; Admin Dose 1 EACH; Start 04/26/17 at 09:00 Ascorbic Acid (Vitamin C) 250 mg BID GTB Last administered on 05/19/17 09:20 ; Admin Dose 250 MG; Start 04/26/17 at 09:00 Famotidine (Pepcid) 20 mg BID GTB Last administered on 05/19/17 09:20; Admin Dose 20 MG; Start 04/26/17 at 09:00 Morphine Sulfate (morphine) 2 mg Q4H PRN IV PAIN Last administered on 14:46; Admin Dose 2 MG; Start 04/26/17 at 16:30 Posaconazole (Noxafil) 400 mg Q8 PO Last administered on 05/19/17 14:14; Admin Dose 400 MG; Start 04/30/17 at 22:00 Ergocalciferol (Drisdol Liquid (Ped)) 50,000 units Q7D GTB Last administered on 05/16/17 09:02; Admin Dose 50,000 UNITS; Start 05/02/17 at 09:30 Enoxaparin Sodium (Lovenox) 50 mg Q12 SC Last administered on 05/19/17 09:53 ; Admin Dose 50 MG; Start 05/03/17 at 09:30 Diphenoxylate HCl/ Atropine (Lomotil Liquid Cup) 5 ml Q6H PRN PO DIARRHEA; Start 05/03/17 at 18:00 Collagenase (Santyl) 1 applic DAILY TOP Last administered on 05/19/17 10:18; Admin Dose 1 APPLIC; Start 05/04/17 at 14:30 Desmopressin Acetate 0.05 mg 0.05 mg DAILY GTB Last administered on 05/19/17 09:19; Admin Dose 0.05 MG; Start 05/07/17 at 09:00 Acyclovir 500 mg/ Sodium Chloride 100 ml @ 100 mls/hr Q8 IVPB Last administered on 05/19/17 14:14; Admin Dose 100 MLS/HR; Start 05/07/17 at 14:00 Meropenem/Sodium Chloride (Merrem 1 Gm/50 ml (Pmx)) 50 ml @ 100 mls/hr Q8H IVPB Last administered on 05/19/17 12:26; Admin Dose 100 MLS/HR; Start 05/12 at 13:00 Vancomycin HCl (Vancomycin Oral Syringe) 250 mg Q6 GTB Last administered on 12:25; Admin Dose 250 MG; Start 05/13/17 at 12:00 Potassium Chloride (Potassium Chloride Pwd/Soln) 20 meq BID GTB Last administered on 05/19/17 09:19; Admin Dose 20 MEQ; Start 05/18/17 at 09:30 MANDIE DAVE May 19, 2017 16:11
--- NOTE | 2017-05-19 16:29 | CONS ---
Date/Time of Note Date/Time of Note DATE: 05/19/17 TIME: 16:28 Assessment/Plan Assessment/Plan Additional Assessment/Plan 1. Non Oliguric Acute kidney injury due to septic shock -Improved 2. Hypernaremia- resolved 3. Septic shock on levophed - Resolved 4. Acute on chronic resp failure s/p Tracheostomy- on ventilator, pulmonary has been following 5. H/o Fungal meningitis, currently comatose 6. H/O Right sided [employer] shunt 7. H/o G tube placement 8. 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 Hypokalemia Plan: Na 147 with DDAVP to 0.05 daily , K 3.2- will give D5W with KCL 20mEQ IV at 75 cc/hr x 1 liter then stop. ID, pulmonary has been following , on IV meropenem and IV acyclovir , amphotericin is stopped on 05/16/17- Hypokalemia was due to amphotericiin induced K defect - expecting to improve since amphotericin has been stopped. will follow up Consultation Date/Type/Reason Admit Date/Time Apr 25, 2017 at 12:31 Initial Consult Date 04/25/17 Type of Consultation: NEPHROLOGY Referring Provider: HELEN CASTELLANO MD 24 HR Interval Summary Free Text/Dictation Na trended upto 147,K low, BP stable, Exam/Review of Systems Vital Signs Vitals Vital Signs Date Time Temp Pulse Resp B/P Pulse Ox O2 Delivery O2 Flow Rate FiO2 05/19/17 15:26 97.6 91 17 125/77 99 05/19/17 15:14 30 Intake and Output 05/18/17 05/18/17 05/19/17 15:00 23:00 07:00 Intake Total 450 ml 1350 ml 1150 ml Output Total 1300 ml 1650 ml Balance 450 ml 50 ml -500 ml Exam Constitutional: non-verbal Neck: other (Tracheostomy), supple Respiratory: diminished breath sounds Cardiovascular: nl pulses Gastrointestinal: non-tender, other (G-tube), soft Extremities: normal pulses Results Result Diagram: 05/18/17 0704 05/19/17 0649 Results 24 hrs Laboratory Tests Test 05/19/17 06:49 Sodium Level 147 H Potassium Level 3.4 L Chloride Level 107 Carbon Dioxide Level 30 Anion Gap 13 Blood Urea Nitrogen 9 Creatinine 0.39 L Glucose Level 105 Calcium Level 10.3 H Medications Medications Current Medications Acetaminophen (Tylenol Liquid) 650 mg Q4 PRN GTB PAIN AND OR ELEVATED TEMP Last administered on 05/16/17 13:08; Admin Dose 650 MG; Start 04/25/17 at 23: 00 Eye Lubricant (Akwa Oint) 1 applic QID BOTH EYES Last administered on 12:26; Admin Dose 1 APPLIC; Start 04/26/17 at 09:00 Bromocriptine Mesylate (Parlodel) 30 mg DAILY GTB Last administered on 09:20; Admin Dose 30 MG; Start 04/26/17 at 09:00 Chlorhexidine Gluconate (Peridex) 15 ml BID MM Last administered on 05/19/17 09:19; Admin Dose 15 ML; Start 04/26/17 at 09:00 Ferrous Sulfate (Feosol Liquid Cup) 300 mg BID GTB Last administered on 09:19; Admin Dose 300 MG; Start 04/26/17 at 09:00 Hydrocortisone (Cortef) 20 mg DAILY GTB Last administered on 05/19/17 09:20; Admin Dose 20 MG; Start 04/26/17 at 09:00 Ondansetron HCl (Zofran Tab) 4 mg Q8 PRN GTB NAUSEA AND/OR VOMITING; Start at 23:00 Lactobacillus Acidophilus (Florajen3 Capsule) 1 each DAILY PEG Last administered on 05/19/17 09:19; Admin Dose 1 EACH; Start 04/26/17 at 09:00 Ascorbic Acid (Vitamin C) 250 mg BID GTB Last administered on 05/19/17 09:20 ; Admin Dose 250 MG; Start 04/26/17 at 09:00 Famotidine (Pepcid) 20 mg BID GTB Last administered on 05/19/17 09:20; Admin Dose 20 MG; Start 04/26/17 at 09:00 Morphine Sulfate (morphine) 2 mg Q4H PRN IV PAIN Last administered on 14:46; Admin Dose 2 MG; Start 04/26/17 at 16:30 Posaconazole (Noxafil) 400 mg Q8 PO Last administered on 05/19/17 14:14; Admin Dose 400 MG; Start 04/30/17 at 22:00 Ergocalciferol (Drisdol Liquid (Ped)) 50,000 units Q7D GTB Last administered on 05/16/17 09:02; Admin Dose 50,000 UNITS; Start 05/02/17 at 09:30 Enoxaparin Sodium (Lovenox) 50 mg Q12 SC Last administered on 05/19/17 09:53 ; Admin Dose 50 MG; Start 05/03/17 at 09:30 Diphenoxylate HCl/ Atropine (Lomotil Liquid Cup) 5 ml Q6H PRN PO DIARRHEA; Start 05/03/17 at 18:00 Collagenase (Santyl) 1 applic DAILY TOP Last administered on 05/19/17 10:18; Admin Dose 1 APPLIC; Start 05/04/17 at 14:30 Desmopressin Acetate 0.05 mg 0.05 mg DAILY GTB Last administered on 05/19/17 09:19; Admin Dose 0.05 MG; Start 05/07/17 at 09:00 Acyclovir 500 mg/ Sodium Chloride 100 ml @ 100 mls/hr Q8 IVPB Last administered on 05/19/17 14:14; Admin Dose 100 MLS/HR; Start 05/07/17 at 14:00 Meropenem/Sodium Chloride (Merrem 1 Gm/50 ml (Pmx)) 50 ml @ 100 mls/hr Q8H IVPB Last administered on 05/19/17 12:26; Admin Dose 100 MLS/HR; Start 05/12 at 13:00 Vancomycin HCl (Vancomycin Oral Syringe) 250 mg Q6 GTB Last administered on 12:25; Admin Dose 250 MG; Start 05/13/17 at 12:00 Potassium Chloride (Potassium Chloride Pwd/Soln) 20 meq BID GTB Last administered on 05/19/17 09:19; Admin Dose 20 MEQ; Start 05/18/17 at 09:30 FARHAT RUBIO MD May 19, 2017 16:29
--- NOTE | 2017-05-19 16:36 | CONS ---
Date/Time of Note Date/Time of Note DATE: 05/19/17 TIME: 16:35 Assessment/Plan Assessment/Plan Additional Assessment/Plan Disseminated coccidiomycosis Pneumonia Sepsis Vent dependent respiratory failure Encephalopathy DVT -Blood pressure trend overall stable. Continue anticoagulation if no contraindication. Supplement potassium to maintain above 4.0 and magnesium above 2.0. Consultation Date/Type/Reason Admit Date/Time Apr 25, 2017 at 12:31 Initial Consult Date 04/25/17 Type of Consultation: cv Referring Provider: HELEN CASTELLANO MD 24 HR Interval Summary Free Text/Dictation Patient seen and examined Exam/Review of Systems Vital Signs Vitals Vital Signs Date Time Temp Pulse Resp B/P Pulse Ox O2 Delivery O2 Flow Rate FiO2 05/19/17 15:26 97.6 91 17 125/77 99 05/19/17 15:14 30 Intake and Output 05/18/17 05/18/17 05/19/17 15:00 23:00 07:00 Intake Total 450 ml 1350 ml 1150 ml Output Total 1300 ml 1650 ml Balance 450 ml 50 ml -500 ml Exam No apparent distress Head: normocephalic Neck: other (Tracheostomy) Respiratory: other (Coarse breath sounds bilaterally, no wheezing) Cardiovascular: other (S1-S2 heard), regular rate and rhythm Gastrointestinal: bowel sounds, other (No grimacing with palpation), soft Extremities: other (No significant edema) Results Result Diagram: 05/18/17 0704 05/19/17 0649 Results 24 hrs Laboratory Tests Test 05/19/17 06:49 Sodium Level 147 H Potassium Level 3.4 L Chloride Level 107 Carbon Dioxide Level 30 Anion Gap 13 Blood Urea Nitrogen 9 Creatinine 0.39 L Glucose Level 105 Calcium Level 10.3 H Medications Medications Current Medications Acetaminophen (Tylenol Liquid) 650 mg Q4 PRN GTB PAIN AND OR ELEVATED TEMP Last administered on 05/16/17 13:08; Admin Dose 650 MG; Start 04/25/17 at 23: 00 Eye Lubricant (Akwa Oint) 1 applic QID BOTH EYES Last administered on 12:26; Admin Dose 1 APPLIC; Start 04/26/17 at 09:00 Bromocriptine Mesylate (Parlodel) 30 mg DAILY GTB Last administered on 09:20; Admin Dose 30 MG; Start 04/26/17 at 09:00 Chlorhexidine Gluconate (Peridex) 15 ml BID MM Last administered on 05/19/17 09:19; Admin Dose 15 ML; Start 04/26/17 at 09:00 Ferrous Sulfate (Feosol Liquid Cup) 300 mg BID GTB Last administered on 09:19; Admin Dose 300 MG; Start 04/26/17 at 09:00 Hydrocortisone (Cortef) 20 mg DAILY GTB Last administered on 05/19/17 09:20; Admin Dose 20 MG; Start 04/26/17 at 09:00 Ondansetron HCl (Zofran Tab) 4 mg Q8 PRN GTB NAUSEA AND/OR VOMITING; Start at 23:00 Lactobacillus Acidophilus (Florajen3 Capsule) 1 each DAILY PEG Last administered on 05/19/17 09:19; Admin Dose 1 EACH; Start 04/26/17 at 09:00 Ascorbic Acid (Vitamin C) 250 mg BID GTB Last administered on 05/19/17 09:20 ; Admin Dose 250 MG; Start 04/26/17 at 09:00 Famotidine (Pepcid) 20 mg BID GTB Last administered on 05/19/17 09:20; Admin Dose 20 MG; Start 04/26/17 at 09:00 Morphine Sulfate (morphine) 2 mg Q4H PRN IV PAIN Last administered on 14:46; Admin Dose 2 MG; Start 04/26/17 at 16:30 Posaconazole (Noxafil) 400 mg Q8 PO Last administered on 05/19/17 14:14; Admin Dose 400 MG; Start 04/30/17 at 22:00 Ergocalciferol (Drisdol Liquid (Ped)) 50,000 units Q7D GTB Last administered on 05/16/17 09:02; Admin Dose 50,000 UNITS; Start 05/02/17 at 09:30 Enoxaparin Sodium (Lovenox) 50 mg Q12 SC Last administered on 05/19/17 09:53 ; Admin Dose 50 MG; Start 05/03/17 at 09:30 Diphenoxylate HCl/ Atropine (Lomotil Liquid Cup) 5 ml Q6H PRN PO DIARRHEA; Start 05/03/17 at 18:00 Collagenase (Santyl) 1 applic DAILY TOP Last administered on 05/19/17 10:18; Admin Dose 1 APPLIC; Start 05/04/17 at 14:30 Desmopressin Acetate 0.05 mg 0.05 mg DAILY GTB Last administered on 05/19/17 09:19; Admin Dose 0.05 MG; Start 05/07/17 at 09:00 Acyclovir 500 mg/ Sodium Chloride 100 ml @ 100 mls/hr Q8 IVPB Last administered on 05/19/17 14:14; Admin Dose 100 MLS/HR; Start 05/07/17 at 14:00 Meropenem/Sodium Chloride (Merrem 1 Gm/50 ml (Pmx)) 50 ml @ 100 mls/hr Q8H IVPB Last administered on 05/19/17 12:26; Admin Dose 100 MLS/HR; Start 05/12 at 13:00 Vancomycin HCl (Vancomycin Oral Syringe) 250 mg Q6 GTB Last administered on 12:25; Admin Dose 250 MG; Start 05/13/17 at 12:00 Potassium Chloride 20 meq 20 meq BID GTB Last administered on 05/19/17 09:19 ; Admin Dose 20 MEQ; Start 05/18/17 at 09:30 Potassium Chloride/Dextrose (D5W + KCl 20 Meq) 1,000 ml @ 75 mls/hr [id number] IV ; Start 05/19/17 at 17:30; Stop 05/20/17 at 06:49 Oscar Awan DO May 19, 2017 16:36
--- NOTE | 2017-05-19 17:10 | CONS ---
Date/Time of Note Date/Time of Note DATE: 05/19/17 TIME: 17:07 Assessment/Plan Assessment/Plan Additional Assessment/Plan Ventilator setting; AC of 16, tidal volume 400, PEEP of 5, 30% FiO2. Assessment and recommendations; 1. Patient admitted with sepsis was doing very well then developed soft tissue lower lip swelling possibly infective in etiology clinically improved after started on antibiotics. 2. 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 Patient remains in persistent vegetative state. 3. Chronic respiratory failure. 4. History of hydrocephalus. 5. Anemia. Next Continue current supportive care. Consultation Date/Type/Reason Admit Date/Time Apr 25, 2017 at 12:31 Initial Consult Date 04/25/17 Type of Consultation: Pulmonary Referring Provider: HELEN CASTELLANO MD 24 HR Interval Summary Free Text/Dictation Patient's condition is stable. Lower lip swelling is improved. She has remained hemodynamically stable. No untoward events reported. General exam; young male, on ventilator via tracheostomy, currently in no distress. Patient in persistent vegetative state. Exam/Review of Systems Vital Signs Vitals Vital Signs Date Time Temp Pulse Resp B/P Pulse Ox O2 Delivery O2 Flow Rate FiO2 05/19/17 16:00 30 05/19/17 15:26 97.6 91 17 125/77 99 Intake and Output 05/18/17 05/18/17 05/19/17 15:00 23:00 07:00 Intake Total 450 ml 1350 ml 1150 ml Output Total 1300 ml 1650 ml Balance 450 ml 50 ml -500 ml Exam HEENT exam; supple neck, no JVD. No lymphadenopathy. Midline trachea. No thyromegaly. Tracheostomy in place. Patient has fair dentition. There is a CLINICAL ADVISOR shunt in place. Lower lip soft tissue swelling has improved. Chest exam; clear to auscultation. S1-S2 audible, no murmurs. Abdomen exam; soft, G-tube in place. Bowel sounds audible. Extremities; no peripheral edema. DOPE POURER exam; patient remains unresponsive. Results Result Diagram: 05/18/17 0704 05/19/17 0649 Results 24 hrs Laboratory Tests Test 05/19/17 06:49 Sodium Level 147 H Potassium Level 3.4 L Chloride Level 107 Carbon Dioxide Level 30 Anion Gap 13 Blood Urea Nitrogen 9 Creatinine 0.39 L Glucose Level 105 Calcium Level 10.3 H Medications Medications Current Medications Acetaminophen (Tylenol Liquid) 650 mg Q4 PRN GTB PAIN AND OR ELEVATED TEMP Last administered on 05/16/17 13:08; Admin Dose 650 MG; Start 04/25/17 at 23: 00 Eye Lubricant (Akwa Oint) 1 applic QID BOTH EYES Last administered on 12:26; Admin Dose 1 APPLIC; Start 04/26/17 at 09:00 Bromocriptine Mesylate (Parlodel) 30 mg DAILY GTB Last administered on 09:20; Admin Dose 30 MG; Start 04/26/17 at 09:00 Chlorhexidine Gluconate (Peridex) 15 ml BID MM Last administered on 05/19/17 09:19; Admin Dose 15 ML; Start 04/26/17 at 09:00 Ferrous Sulfate (Feosol Liquid Cup) 300 mg BID GTB Last administered on 09:19; Admin Dose 300 MG; Start 04/26/17 at 09:00 Hydrocortisone (Cortef) 20 mg DAILY GTB Last administered on 05/19/17 09:20; Admin Dose 20 MG; Start 04/26/17 at 09:00 Ondansetron HCl (Zofran Tab) 4 mg Q8 PRN GTB NAUSEA AND/OR VOMITING; Start at 23:00 Lactobacillus Acidophilus (Florajen3 Capsule) 1 each DAILY PEG Last administered on 05/19/17 09:19; Admin Dose 1 EACH; Start 04/26/17 at 09:00 Ascorbic Acid (Vitamin C) 250 mg BID GTB Last administered on 05/19/17 09:20 ; Admin Dose 250 MG; Start 04/26/17 at 09:00 Famotidine (Pepcid) 20 mg BID GTB Last administered on 05/19/17 09:20; Admin Dose 20 MG; Start 04/26/17 at 09:00 Morphine Sulfate (morphine) 2 mg Q4H PRN IV PAIN Last administered on 14:46; Admin Dose 2 MG; Start 04/26/17 at 16:30 Posaconazole (Noxafil) 400 mg Q8 PO Last administered on 05/19/17 14:14; Admin Dose 400 MG; Start 04/30/17 at 22:00 Ergocalciferol (Drisdol Liquid (Ped)) 50,000 units Q7D GTB Last administered on 05/16/17 09:02; Admin Dose 50,000 UNITS; Start 05/02/17 at 09:30 Enoxaparin Sodium (Lovenox) 50 mg Q12 SC Last administered on 05/19/17 09:53 ; Admin Dose 50 MG; Start 05/03/17 at 09:30 Diphenoxylate HCl/ Atropine (Lomotil Liquid Cup) 5 ml Q6H PRN PO DIARRHEA; Start 05/03/17 at 18:00 Collagenase (Santyl) 1 applic DAILY TOP Last administered on 05/19/17 10:18; Admin Dose 1 APPLIC; Start 05/04/17 at 14:30 Desmopressin Acetate 0.05 mg 0.05 mg DAILY GTB Last administered on 05/19/17 09:19; Admin Dose 0.05 MG; Start 05/07/17 at 09:00 Acyclovir 500 mg/ Sodium Chloride 100 ml @ 100 mls/hr Q8 IVPB Last administered on 05/19/17 14:14; Admin Dose 100 MLS/HR; Start 05/07/17 at 14:00 Meropenem/Sodium Chloride (Merrem 1 Gm/50 ml (Pmx)) 50 ml @ 100 mls/hr Q8H IVPB Last administered on 05/19/17 12:26; Admin Dose 100 MLS/HR; Start 05/12 at 13:00 Vancomycin HCl (Vancomycin Oral Syringe) 250 mg Q6 GTB Last administered on 12:25; Admin Dose 250 MG; Start 05/13/17 at 12:00 Potassium Chloride 20 meq 20 meq BID GTB Last administered on 05/19/17 09:19 ; Admin Dose 20 MEQ; Start 05/18/17 at 09:30 Potassium Chloride/Dextrose (D5W + KCl 20 Meq) 1,000 ml @ 75 mls/hr [id number] IV ; Start 05/19/17 at 17:30; Stop 05/20/17 at 06:49 CHITO WALLS May 19, 2017 17:10
[2017-05-19] MEDS ORDERED: D5W + KCL 20 MEQ 1,000 ML IV SCH (17:30)
[2017-05-20] VITALS (23 sets, daily range): BP systolic 86–152; BP diastolic 51–87; PULSE 89–114; RESP 16–23
[2017-05-20] MEDS: VANCOMYCIN HCL 250 MG/5ML POSYG GTB SCH ×5 (01:29→23:18)
[2017-05-20] MEDS: ACYCLOVIR 500 MG in SOD CHLORIDE 0.9% 100 ML IVPB SCH ×3 (05:23→21:32)
[2017-05-20] MEDS: MEROPENEM 1 GM/50ML(PMX) 50 ML IVPB SCH ×3 (05:23→21:32)
[2017-05-20] MEDS: POSACONAZOLE PO SCH ×3 (05:23→23:18)
--- NOTE | 2017-05-20 08:45 | CONS ---
Date/Time of Note Date/Time of Note DATE: 05/20/17 TIME: 08:44 Assessment/Plan Assessment/Plan Chief Complaint/Hosp Course assessment/impression - disseminated coccidioides mycosis infection, meningitis. CSF from the shunt on 05/15/2017 had WBC 11 (91% mono, 9 % lymph), glu=76, [id number], 05/16/2017 had WBC 4 (75% mono, 25 % lymph), glu=80, [id number] (last LP on record at [facility] on 03/31/2017: WBC 4 33% PMNs, RBC 16, glu <10, protein >2,000) - coccidioides CF 14:8 on 03/21/2017, CF 1:16 on 04/26/2017 - posaconazole trough level 0.32 on 04/27/2017, the dose was increased on 2016. The repeat level 0/37 on 05/07/2017 - skin and soft tissue infection of the lower lip and chin due to ESBL+E. 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 CT on 05/17/2017 showed no abscess - C diff colitis, recurrent - septic shock due to pneumonia and UTI - UTI due to ESBL+E. coli. Took pip/tazo and then meropenem - b/l pneumonia due to klebsiella, EBL+E. coli. - s/p VPS placement - VDRF s/p tracheostomy - PEG dependet status - pancytopenia, due to septic shock on admission, improved - thrombocytopenia, improved recommendations - pending results: CSF (VDRL, coccidioides compliment fixation, fungus culture, herpes simplex virus PCR, West Nile virus IgM/IgG, cryptococcus antigen) - continue meropenem (restart 05/09/2017-) to cover UTI, pneumonia and infection of the lower lip and chin due to ESBL+E. 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 coli in sputum culture respectively Problems: Consultation Date/Type/Reason Admit Date/Time Apr 25, 2017 at 12:31 Initial Consult Date 04/25/17 Type of Consultation: ID Referring Provider: HELEN CASTELLANO MD 24 HR Interval Summary Subjective hx not possible: pt non-verbal, pt critical, pt critical status Exam/Review of Systems Vital Signs Vitals Vital Signs Date Time Temp Pulse Resp B/P Pulse Ox O2 Delivery O2 Flow Rate FiO2 05/20/17 08:32 114 05/20/17 05:35 22 100 30 05/20/17 03:48 98.7 130/82 Intake and Output 05/19/17 05/19/17 05/20/17 15:00 23:00 07:00 Intake Total 50 ml 1050 ml 1150 ml Output Total 600 ml 1750 ml Balance 50 ml 450 ml -600 ml Exam Constitutional: frail, non-verbal Psych: confusion Head: other (s/p VPS placement) Eyes: nl conjunctiva, nl lids, nl sclera ENMT: nl external ears & nose, other (ulcer and purulence of lower lip) Neck: other Respiratory: crackles/rales Cardiovascular: nl pulses, regular rate and rhythm Gastrointestinal: non-tender, other (GT), soft Genitourinary - Male: other Musculoskeletal: nl extremities to inspection Extremities: No edema Neurological: confused, lethargic, unresponsive Skin: nl turgor Results Result Diagram: 05/18/17 0704 05/19/17 0649 Results 24 hrs Laboratory Tests Test 05/20/17 06:28 Lab Scanned Report REFERENCE LAB Medications Medications Current Medications Acetaminophen (Tylenol Liquid) 650 mg Q4 PRN GTB PAIN AND OR ELEVATED TEMP Last administered on 05/16/17 13:08; Admin Dose 650 MG; Start 04/25/17 at 23: 00 Eye Lubricant (Akwa Oint) 1 applic QID BOTH EYES Last administered on 21:31; Admin Dose 1 APPLIC; Start 04/26/17 at 09:00 Bromocriptine Mesylate (Parlodel) 30 mg DAILY GTB Last administered on 09:20; Admin Dose 30 MG; Start 04/26/17 at 09:00 Chlorhexidine Gluconate (Peridex) 15 ml BID MM Last administered on 05/19/17 21:14; Admin Dose 15 ML; Start 04/26/17 at 09:00 Ferrous Sulfate (Feosol Liquid Cup) 300 mg BID GTB Last administered on 21:13; Admin Dose 300 MG; Start 04/26/17 at 09:00 Hydrocortisone (Cortef) 20 mg DAILY GTB Last administered on 05/19/17 09:20; Admin Dose 20 MG; Start 04/26/17 at 09:00 Ondansetron HCl (Zofran Tab) 4 mg Q8 PRN GTB NAUSEA AND/OR VOMITING; Start at 23:00 Lactobacillus Acidophilus (Florajen3 Capsule) 1 each DAILY PEG Last administered on 05/19/17 09:19; Admin Dose 1 EACH; Start 04/26/17 at 09:00 Ascorbic Acid (Vitamin C) 250 mg BID GTB Last administered on 05/19/17 21:14 ; Admin Dose 250 MG; Start 04/26/17 at 09:00 Famotidine (Pepcid) 20 mg BID GTB Last administered on 05/19/17 21:14; Admin Dose 20 MG; Start 04/26/17 at 09:00 Morphine Sulfate (morphine) 2 mg Q4H PRN IV PAIN Last administered on 14:46; Admin Dose 2 MG; Start 04/26/17 at 16:30 Posaconazole (Noxafil) 400 mg Q8 PO Last administered on 05/20/17 05:23; Admin Dose 400 MG; Start 04/30/17 at 22:00 Ergocalciferol (Drisdol Liquid (Ped)) 50,000 units Q7D GTB Last administered on 05/16/17 09:02; Admin Dose 50,000 UNITS; Start 05/02/17 at 09:30 Enoxaparin Sodium (Lovenox) 50 mg Q12 SC Last administered on 05/19/17 21:15 ; Admin Dose 50 MG; Start 05/03/17 at 09:30 Diphenoxylate HCl/ Atropine (Lomotil Liquid Cup) 5 ml Q6H PRN PO DIARRHEA; Start 05/03/17 at 18:00 Collagenase (Santyl) 1 applic DAILY TOP Last administered on 05/19/17 10:18; Admin Dose 1 APPLIC; Start 05/04/17 at 14:30 Desmopressin Acetate 0.05 mg 0.05 mg DAILY GTB Last administered on 05/19/17 09:19; Admin Dose 0.05 MG; Start 05/07/17 at 09:00 Acyclovir 500 mg/ Sodium Chloride 100 ml @ 100 mls/hr Q8 IVPB Last administered on 05/20/17 05:23; Admin Dose 100 MLS/HR; Start 05/07/17 at 14:00 Meropenem/Sodium Chloride (Merrem 1 Gm/50 ml (Pmx)) 50 ml @ 100 mls/hr Q8H IVPB Last administered on 05/20/17 05:23; Admin Dose 100 MLS/HR; Start 05/12 at 13:00 Vancomycin HCl (Vancomycin Oral Syringe) 250 mg Q6 GTB Last administered on 05:23; Admin Dose 250 MG; Start 05/13/17 at 12:00 Potassium Chloride (Potassium Chloride Pwd/Soln) 20 meq BID GTB Last administered on 05/19/17 21:31; Admin Dose 20 MEQ; Start 05/18/17 at 09:30 ELENI EVANS M.D. May 20, 2017 08:45
[2017-05-20] MEDS: CHLORHEXIDINE GLUCONATE 15 ML UD CUP MM SCH ×2 (09:11→21:31)
[2017-05-20] MEDS: DESMOPRESSIN 0.1 MG TAB GTB SCH (09:11)
[2017-05-20] MEDS: HYDROCORTISONE 20 MG TAB GTB SCH (09:11)
[2017-05-20] MEDS: L ACIDOPHIL/B LACTIS/B LONGUM CAPSULE PEG SCH (09:11)
[2017-05-20] MEDS: FERROUS SULFATE 60 MG/ML 5ML CUP GTB SCH ×2 (09:11→21:31)
[2017-05-20] MEDS: FAMOTIDINE 20 MG TAB GTB SCH ×2 (09:11→21:32)
[2017-05-20] MEDS: BROMOCRIPTINE 2.5 MG TAB GTB SCH (09:11)
[2017-05-20] MEDS: ASCORBIC ACID 250 MG TAB GTB SCH ×2 (09:12→21:31)
[2017-05-20] MEDS: OCULAR LUBRICANT 3.5 GM OPH OINT BOTH EYES SCH ×4 (09:12→21:00)
[2017-05-20] MEDS: POTASSIUM CHLORIDE 20 MEQ POWDER FOR ORAL SOLN GTB SCH ×2 (09:12→23:18)
[2017-05-20 09:13] LABS: BASOPHIL # 0.1 10^3/ul (0.0-0.1); BASOPHILS % 1.2 % (0.0-2.0); EOSINOPHILS # 0.1 10^3/ul (0.0-0.5); EOSINOPHILS % 2.3 % (0.0-7.0); HEMOGLOBIN 8.8 g/dl (14.0-18.0); LYMPHOCYTES # 0.9 10^3/ul (0.8-2.9); LYMPHOCYTES % 14.9 % (15.0-51.0); MEAN CORPUSCULAR HEMOGLOBIN 28.5 pg (29.0-33.0); MEAN CORPUSCULAR HGB CONC 31.4 g/dl (32.0-37.0); MEAN CORPUSCULAR VOLUME 90.6 fl (82.0-101.0); MEAN PLATELET VOLUME 11.7 fl (7.4-10.4); MONOCYTE # 0.5 10^3/ul (0.3-0.9); MONOCYTES % 8.6 % (0.0-11.0); NEUTROPHIL # 4.3 10^3/ul (1.6-7.5); NEUTROPHILS % 71.7 % (39.0-77.0); PLATELET COUNT 280 10^3/UL (140-415); RED BLOOD COUNT 3.09 10^6/ul (4.70-6.10); RED CELL DISTRIBUTION WIDTH 14.2 % (11.5-14.5)
[2017-05-20] MEDS: ENOXAPARIN 60 MG/0.6 ML SYG SC SCH ×2 (09:19→21:33)
[2017-05-20 09:37] LABS: CALCIUM 10.4 mg/dl (8.4-10.2); CREATININE 0.4 mg/dl (0.61-1.24); POTASSIUM 3.5 mmol/L (3.5-5.1)
--- NOTE | 2017-05-20 11:48 | CONS ---
Date/Time of Note Date/Time of Note DATE: 05/20/17 TIME: 11:47 Assessment/Plan Assessment/Plan Additional Assessment/Plan Disseminated coccidiomycosis Pneumonia Sepsis Vent dependent respiratory failure Encephalopathy DVT -Blood pressure trend overall stable. Continue anticoagulation if no contraindication. Supplement potassium to maintain above 4.0 and magnesium above 2.0. Consultation Date/Type/Reason Admit Date/Time Apr 25, 2017 at 12:31 Initial Consult Date 04/25/17 Type of Consultation: cv Referring Provider: HELEN CASTELLANO MD 24 HR Interval Summary Free Text/Dictation Patient seen and examined Exam/Review of Systems Vital Signs Vitals Vital Signs Date Time Temp Pulse Resp B/P Pulse Ox O2 Delivery O2 Flow Rate FiO2 05/20/17 08:32 114 05/20/17 08:00 30 05/20/17 05:35 22 100 05/20/17 03:48 98.7 130/82 Intake and Output 05/19/17 05/19/17 05/20/17 15:00 23:00 07:00 Intake Total 50 ml 1050 ml 1150 ml Output Total 600 ml 1750 ml Balance 50 ml 450 ml -600 ml Exam No apparent distress, no response to verbal stimuli Head: normocephalic Neck: other (Tracheostomy) Respiratory: other (Coarse breath sounds bilaterally, no wheezing) Cardiovascular: other (S1-S2 heard), regular rate and rhythm Gastrointestinal: bowel sounds, other (No grimacing with palpation), soft Extremities: edema (Trace) Results Result Diagram: 05/20/17 0724 05/20/17 0724 Results 24 hrs Laboratory Tests Test 05/20/17 06:28 05/20/17 07:24 Lab Scanned Report REFERENCE LAB White Blood Count 6.0 # Red Blood Count 3.09 L Hemoglobin 8.8 L Hematocrit 28.0 L Mean Corpuscular Volume 90.6 Mean Corpuscular Hemoglobin 28.5 L Mean Corpuscular Hemoglobin Concent 31.4 L Red Cell Distribution Width 14.2 Platelet Count 280 Mean Platelet Volume 11.7 H Neutrophils % 71.7 Lymphocytes % 14.9 L Monocytes % 8.6 Eosinophils % 2.3 Basophils % 1.2 Nucleated Red Blood Cells % 0.0 Neutrophils # 4.3 Lymphocytes # 0.9 Monocytes # 0.5 Eosinophils # 0.1 Basophils # 0.1 Nucleated Red Blood Cells # 0.0 Sodium Level 143 Potassium Level 3.5 Chloride Level 100 Carbon Dioxide Level 32 H Anion Gap 15 Blood Urea Nitrogen 9 Creatinine 0.40 L Glucose Level 94 Calcium Level 10.4 H Medications Medications Current Medications Acetaminophen (Tylenol Liquid) 650 mg Q4 PRN GTB PAIN AND OR ELEVATED TEMP Last administered on 05/16/17 13:08; Admin Dose 650 MG; Start 04/25/17 at 23: 00 Eye Lubricant (Akwa Oint) 1 applic QID BOTH EYES Last administered on 09:12; Admin Dose 1 APPLIC; Start 04/26/17 at 09:00 Bromocriptine Mesylate (Parlodel) 30 mg DAILY GTB Last administered on 09:11; Admin Dose 30 MG; Start 04/26/17 at 09:00 Chlorhexidine Gluconate (Peridex) 15 ml BID MM Last administered on 05/20/17 09:11; Admin Dose 15 ML; Start 04/26/17 at 09:00 Ferrous Sulfate (Feosol Liquid Cup) 300 mg BID GTB Last administered on 09:11; Admin Dose 300 MG; Start 04/26/17 at 09:00 Hydrocortisone (Cortef) 20 mg DAILY GTB Last administered on 05/20/17 09:11; Admin Dose 20 MG; Start 04/26/17 at 09:00 Ondansetron HCl (Zofran Tab) 4 mg Q8 PRN GTB NAUSEA AND/OR VOMITING; Start at 23:00 Lactobacillus Acidophilus (Florajen3 Capsule) 1 each DAILY PEG Last administered on 05/20/17 09:11; Admin Dose 1 EACH; Start 04/26/17 at 09:00 Ascorbic Acid (Vitamin C) 250 mg BID GTB Last administered on 05/20/17 09:12 ; Admin Dose 250 MG; Start 04/26/17 at 09:00 Famotidine (Pepcid) 20 mg BID GTB Last administered on 05/20/17 09:11; Admin Dose 20 MG; Start 04/26/17 at 09:00 Morphine Sulfate (morphine) 2 mg Q4H PRN IV PAIN Last administered on 14:46; Admin Dose 2 MG; Start 04/26/17 at 16:30 Posaconazole (Noxafil) 400 mg Q8 PO Last administered on 05/20/17 05:23; Admin Dose 400 MG; Start 04/30/17 at 22:00 Ergocalciferol (Drisdol Liquid (Ped)) 50,000 units Q7D GTB Last administered on 05/16/17 09:02; Admin Dose 50,000 UNITS; Start 05/02/17 at 09:30 Enoxaparin Sodium (Lovenox) 50 mg Q12 SC Last administered on 05/20/17 09:19 ; Admin Dose 50 MG; Start 05/03/17 at 09:30 Diphenoxylate HCl/ Atropine (Lomotil Liquid Cup) 5 ml Q6H PRN PO DIARRHEA; Start 05/03/17 at 18:00 Collagenase (Santyl) 1 applic DAILY TOP Last administered on 05/19/17 10:18; Admin Dose 1 APPLIC; Start 05/04/17 at 14:30 Desmopressin Acetate 0.05 mg 0.05 mg DAILY GTB Last administered on 05/20/17 09:11; Admin Dose 0.05 MG; Start 05/07/17 at 09:00 Acyclovir 500 mg/ Sodium Chloride 100 ml @ 100 mls/hr Q8 IVPB Last administered on 05/20/17 05:23; Admin Dose 100 MLS/HR; Start 05/07/17 at 14:00 Meropenem/Sodium Chloride (Merrem 1 Gm/50 ml (Pmx)) 50 ml @ 100 mls/hr Q8H IVPB Last administered on 05/20/17 05:23; Admin Dose 100 MLS/HR; Start 05/12 at 13:00 Vancomycin HCl (Vancomycin Oral Syringe) 250 mg Q6 GTB Last administered on 05:23; Admin Dose 250 MG; Start 05/13/17 at 12:00 Potassium Chloride (Potassium Chloride Pwd/Soln) 20 meq BID GTB Last administered on 05/20/17 09:12; Admin Dose 20 MEQ; Start 05/18/17 at 09:30 Oscar Awan DO May 20, 2017 11:48
--- NOTE | 2017-05-20 12:55 | CONS ---
Date/Time of Note Date/Time of Note DATE: 05/20/17 TIME: 12:52 Assessment/Plan Assessment/Plan Additional Assessment/Plan Ventilator setting; AC of 16, tidal volume 400, PEEP of 5, 30% FiO2. Assessment and recommendations; 1. Patient admitted with sepsis was doing fairly well and was off antibiotics then developed right periorbital cellulitis. Currently on appropriate antibiotic regimen. 2. History of disseminated coccidiomycosis infection with meningitis resulting in severe anoxic brain injury causing permanent vegetative state. 3. Chronic respiratory failure. 4. Anemia. 5. Hydrocephalus. Continue current supportive care. Prognosis is poor. Consultation Date/Type/Reason Admit Date/Time Apr 25, 2017 at 12:31 Initial Consult Date 04/25/17 Type of Consultation: Pulmonary Referring Provider: HELEN CASTELLANO MD 24 HR Interval Summary Free Text/Dictation Patient's condition remains stable. Has remained hemodynamically stable. Patient remains in persistent vegetative state. General exam; young male, on ventilator via tracheostomy, unresponsive, currently in no distress. Exam/Review of Systems Vital Signs Vitals Vital Signs Date Time Temp Pulse Resp B/P Pulse Ox O2 Delivery O2 Flow Rate FiO2 05/20/17 12:38 108 05/20/17 11:47 98.4 19 152/86 99 05/20/17 08:00 30 Intake and Output 05/19/17 05/19/17 05/20/17 15:00 23:00 07:00 Intake Total 50 ml 1050 ml 1150 ml Output Total 600 ml 1750 ml Balance 50 ml 450 ml -600 ml Exam HEENT exam; supple neck, no JVD. No lymphadenopathy. Midline trachea. No thyromegaly. Tracheostomy in place. There is soft tissue swelling involving the right lower lip. The patient in place. Chest exam; clear to auscultation. S1-S2 audible, no murmurs. Regular rhythm. Abdomen exam; soft, G-tube in place. Bowel sounds audible. Abdomen is nondistended. Extremity exam; no peripheral edema. HERBARIUM CURATOR exam; patient remains unresponsive. Results Result Diagram: 05/20/17 0724 05/20/17 0724 Results 24 hrs Laboratory Tests Test 05/20/17 06:28 05/20/17 07:24 Lab Scanned Report REFERENCE LAB White Blood Count 6.0 # Red Blood Count 3.09 L Hemoglobin 8.8 L Hematocrit 28.0 L Mean Corpuscular Volume 90.6 Mean Corpuscular Hemoglobin 28.5 L Mean Corpuscular Hemoglobin Concent 31.4 L Red Cell Distribution Width 14.2 Platelet Count 280 Mean Platelet Volume 11.7 H Neutrophils % 71.7 Lymphocytes % 14.9 L Monocytes % 8.6 Eosinophils % 2.3 Basophils % 1.2 Nucleated Red Blood Cells % 0.0 Neutrophils # 4.3 Lymphocytes # 0.9 Monocytes # 0.5 Eosinophils # 0.1 Basophils # 0.1 Nucleated Red Blood Cells # 0.0 Sodium Level 143 Potassium Level 3.5 Chloride Level 100 Carbon Dioxide Level 32 H Anion Gap 15 Blood Urea Nitrogen 9 Creatinine 0.40 L Glucose Level 94 Calcium Level 10.4 H Medications Medications Current Medications Acetaminophen (Tylenol Liquid) 650 mg Q4 PRN GTB PAIN AND OR ELEVATED TEMP Last administered on 05/16/17 13:08; Admin Dose 650 MG; Start 04/25/17 at 23: 00 Eye Lubricant (Akwa Oint) 1 applic QID BOTH EYES Last administered on 09:12; Admin Dose 1 APPLIC; Start 04/26/17 at 09:00 Bromocriptine Mesylate (Parlodel) 30 mg DAILY GTB Last administered on 09:11; Admin Dose 30 MG; Start 04/26/17 at 09:00 Chlorhexidine Gluconate (Peridex) 15 ml BID MM Last administered on 05/20/17 09:11; Admin Dose 15 ML; Start 04/26/17 at 09:00 Ferrous Sulfate (Feosol Liquid Cup) 300 mg BID GTB Last administered on 09:11; Admin Dose 300 MG; Start 04/26/17 at 09:00 Hydrocortisone (Cortef) 20 mg DAILY GTB Last administered on 05/20/17 09:11; Admin Dose 20 MG; Start 04/26/17 at 09:00 Ondansetron HCl (Zofran Tab) 4 mg Q8 PRN GTB NAUSEA AND/OR VOMITING; Start at 23:00 Lactobacillus Acidophilus (Florajen3 Capsule) 1 each DAILY PEG Last administered on 05/20/17 09:11; Admin Dose 1 EACH; Start 04/26/17 at 09:00 Ascorbic Acid (Vitamin C) 250 mg BID GTB Last administered on 05/20/17 09:12 ; Admin Dose 250 MG; Start 04/26/17 at 09:00 Famotidine (Pepcid) 20 mg BID GTB Last administered on 05/20/17 09:11; Admin Dose 20 MG; Start 04/26/17 at 09:00 Morphine Sulfate (morphine) 2 mg Q4H PRN IV PAIN Last administered on 14:46; Admin Dose 2 MG; Start 04/26/17 at 16:30 Posaconazole (Noxafil) 400 mg Q8 PO Last administered on 05/20/17 05:23; Admin Dose 400 MG; Start 04/30/17 at 22:00 Ergocalciferol (Drisdol Liquid (Ped)) 50,000 units Q7D GTB Last administered on 05/16/17 09:02; Admin Dose 50,000 UNITS; Start 05/02/17 at 09:30 Enoxaparin Sodium (Lovenox) 50 mg Q12 SC Last administered on 05/20/17 09:19 ; Admin Dose 50 MG; Start 05/03/17 at 09:30 Diphenoxylate HCl/ Atropine (Lomotil Liquid Cup) 5 ml Q6H PRN PO DIARRHEA; Start 05/03/17 at 18:00 Collagenase (Santyl) 1 applic DAILY TOP Last administered on 05/19/17 10:18; Admin Dose 1 APPLIC; Start 05/04/17 at 14:30 Desmopressin Acetate 0.05 mg 0.05 mg DAILY GTB Last administered on 05/20/17 09:11; Admin Dose 0.05 MG; Start 05/07/17 at 09:00 Acyclovir 500 mg/ Sodium Chloride 100 ml @ 100 mls/hr Q8 IVPB Last administered on 05/20/17 05:23; Admin Dose 100 MLS/HR; Start 05/07/17 at 14:00 Meropenem/Sodium Chloride (Merrem 1 Gm/50 ml (Pmx)) 50 ml @ 100 mls/hr Q8H IVPB Last administered on 05/20/17 05:23; Admin Dose 100 MLS/HR; Start 05/12 at 13:00 Vancomycin HCl (Vancomycin Oral Syringe) 250 mg Q6 GTB Last administered on 05:23; Admin Dose 250 MG; Start 05/13/17 at 12:00 Potassium Chloride (Potassium Chloride Pwd/Soln) 20 meq BID GTB Last administered on 05/20/17 09:12; Admin Dose 20 MEQ; Start 05/18/17 at 09:30 CHITO WALLS May 20, 2017 12:55
[2017-05-20] MEDS: COLLAGENASE 30 GM TUBE TOP SCH (13:11)
--- NOTE | 2017-05-20 16:15 | PN ---
Date/Time of Note Date/Time of Note DATE: 05/20/17 TIME: 16:15 Assessment/Plan VTE Prophylaxis VTE Prophylaxis Intervention: SCD's Lines/Catheters IV Catheter Type (from [facility]): PICC Line Urinary Cath still in place: Yes Assessment/Plan Assessment/Plan - C. difficile colitis, continue vancomycin via G-tube - Septic shock due to bilateral pneumonia and UTI, resolving. Continue antibiotics per ID. Dr Brown is following in infection disease consultation. 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 Status post FLAT SURFACER JEWEL shunt tap by Dr. Sandoval, neurosurgery. 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 Continue Lovenox. - Acute kidney injury, resolving. - Hypernatremia, resolved. Dr Sorensen is following in nephrology consultation. - Hypokalemia, continue k protocol. - Pancytopenia most likely secondary to sepsis - Dysphagia with PEG. Continue tube G-tube feeding - VDRF with tracheostomy - Hydrocephalus, status post FLAT SURFACER JEWEL shunt. - Polyuria, improving. Further recommendations based on clinical course. Plan of care discussed with Dr. Dozier Subjective 24 Hr Interval Summary Subjective hx not possible: pt non-verbal Constitutional: requiring IVF, requiring O2 Exam/Review of Systems Vital Signs Vitals Vital Signs Date Time Temp Pulse Resp B/P Pulse Ox O2 Delivery O2 Flow Rate FiO2 05/20/17 15:46 98.9 111 17 139/77 100 05/20/17 15:31 30 Intake and Output 05/19/17 05/19/17 05/20/17 15:00 23:00 07:00 Intake Total 50 ml 1050 ml 1150 ml Output Total 600 ml 1750 ml Balance 50 ml 450 ml -600 ml Exam Constitutional: frail, non-verbal Respiratory: diminished breath sounds Cardiovascular: other (s1s2) Gastrointestinal: other, soft Musculoskeletal: muscle weakness Extremities: normal pulses Neurological: unresponsive Results Result Diagram: 05/20/1724 05/20/17 0724 Results 24 hrs Laboratory Tests Test 05/20/17 06:28 05/20/17 07:24 Lab Scanned Report REFERENCE LAB White Blood Count 6.0 # Red Blood Count 3.09 L Hemoglobin 8.8 L Hematocrit 28.0 L Mean Corpuscular Volume 90.6 Mean Corpuscular Hemoglobin 28.5 L Mean Corpuscular Hemoglobin Concent 31.4 L Red Cell Distribution Width 14.2 Platelet Count 280 Mean Platelet Volume 11.7 H Neutrophils % 71.7 Lymphocytes % 14.9 L Monocytes % 8.6 Eosinophils % 2.3 Basophils % 1.2 Nucleated Red Blood Cells % 0.0 Neutrophils # 4.3 Lymphocytes # 0.9 Monocytes # 0.5 Eosinophils # 0.1 Basophils # 0.1 Nucleated Red Blood Cells # 0.0 Sodium Level 143 Potassium Level 3.5 Chloride Level 100 Carbon Dioxide Level 32 H Anion Gap 15 Blood Urea Nitrogen 9 Creatinine 0.40 L Glucose Level 94 Calcium Level 10.4 H Medications Medications Current Medications Acetaminophen (Tylenol Liquid) 650 mg Q4 PRN GTB PAIN AND OR ELEVATED TEMP Last administered on 05/16/17 13:08; Admin Dose 650 MG; Start 04/25/17 at 23: 00 Eye Lubricant (Akwa Oint) 1 applic QID BOTH EYES Last administered on 13:10; Admin Dose 1 APPLIC; Start 04/26/17 at 09:00 Bromocriptine Mesylate (Parlodel) 30 mg DAILY GTB Last administered on 09:11; Admin Dose 30 MG; Start 04/26/17 at 09:00 Chlorhexidine Gluconate (Peridex) 15 ml BID MM Last administered on 05/20/17 09:11; Admin Dose 15 ML; Start 04/26/17 at 09:00 Ferrous Sulfate (Feosol Liquid Cup) 300 mg BID GTB Last administered on 09:11; Admin Dose 300 MG; Start 04/26/17 at 09:00 Hydrocortisone (Cortef) 20 mg DAILY GTB Last administered on 05/20/17 09:11; Admin Dose 20 MG; Start 04/26/17 at 09:00 Ondansetron HCl (Zofran Tab) 4 mg Q8 PRN GTB NAUSEA AND/OR VOMITING; Start at 23:00 Lactobacillus Acidophilus (Florajen3 Capsule) 1 each DAILY PEG Last administered on 05/20/17 09:11; Admin Dose 1 EACH; Start 04/26/17 at 09:00 Ascorbic Acid (Vitamin C) 250 mg BID GTB Last administered on 05/20/17 09:12 ; Admin Dose 250 MG; Start 04/26/17 at 09:00 Famotidine (Pepcid) 20 mg BID GTB Last administered on 05/20/17 09:11; Admin Dose 20 MG; Start 04/26/17 at 09:00 Morphine Sulfate (morphine) 2 mg Q4H PRN IV PAIN Last administered on 14:46; Admin Dose 2 MG; Start 04/26/17 at 16:30 Posaconazole (Noxafil) 400 mg Q8 PO Last administered on 05/20/17 13:10; Admin Dose 400 MG; Start 04/30/17 at 22:00 Ergocalciferol (Drisdol Liquid (Ped)) 50,000 units Q7D GTB Last administered on 05/16/17 09:02; Admin Dose 50,000 UNITS; Start 05/02/17 at 09:30 Enoxaparin Sodium (Lovenox) 50 mg Q12 SC Last administered on 05/20/17 09:19 ; Admin Dose 50 MG; Start 05/03/17 at 09:30 Diphenoxylate HCl/ Atropine (Lomotil Liquid Cup) 5 ml Q6H PRN PO DIARRHEA; Start 05/03/17 at 18:00 Collagenase (Santyl) 1 applic DAILY TOP Last administered on 05/20/17 13:11; Admin Dose 1 APPLIC; Start 05/04/17 at 14:30 Desmopressin Acetate 0.05 mg 0.05 mg DAILY GTB Last administered on 05/20/17 09:11; Admin Dose 0.05 MG; Start 05/07/17 at 09:00 Acyclovir 500 mg/ Sodium Chloride 100 ml @ 100 mls/hr Q8 IVPB Last administered on 05/20/17 13:11; Admin Dose 100 MLS/HR; Start 05/07/17 at 14:00 Meropenem/Sodium Chloride (Merrem 1 Gm/50 ml (Pmx)) 50 ml @ 100 mls/hr Q8H IVPB Last administered on 05/20/17 13:10; Admin Dose 100 MLS/HR; Start 05/12 at 13:00 Vancomycin HCl (Vancomycin Oral Syringe) 250 mg Q6 GTB Last administered on 13:10; Admin Dose 250 MG; Start 05/13/17 at 12:00 Potassium Chloride (Potassium Chloride Pwd/Soln) 20 meq BID GTB Last administered on 05/20/17t 09:12; Admin Dose 20 MEQ; Start 05/18/17 at 09:30 BATSHEVA MCKEON May 20, 2017 16:15
--- NOTE | 2017-05-20 18:12 | CONS ---
Date/Time of Note Date/Time of Note DATE: 05/20/17 TIME: 18:12 Assessment/Plan Assessment/Plan Additional Assessment/Plan 1. Non Oliguric Acute kidney injury due to septic shock -Improved 2. Hypernaremia- resolved 3. Septic shock on levophed - Resolved 4. Acute on chronic resp failure s/p Tracheostomy- on ventilator, pulmonary has been following 5. H/o Fungal meningitis, currently comatose 6. H/O Right sided EQUIPMENT STERILIZER shunt 7. H/o G tube placement 8. Usppresident/gm production & live experiences 9. 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 Hypokalemia Plan: Na 143 with DDAVP to 0.05 daily , s/p1 liter D5 W with KCl now Na improved to normal, K normal today . ID, pulmonary has been following , on IV meropenem and IV acyclovir , amphotericin is stopped on 05/16/17- Hypokalemia was due to amphotericiin induced K defect - expecting to improve since amphotericin has been stopped. will follow up Consultation Date/Type/Reason Admit Date/Time Apr 25, 2017 at 12:31 Initial Consult Date 04/25/17 Type of Consultation: NEPHROLOGY Referring Provider: HELEN CASTELLANO MD 24 HR Interval Summary Free Text/Dictation Na improved to 143,Ca 10.4 Exam/Review of Systems Vital Signs Vitals Vital Signs Date Time Temp Pulse Resp B/P Pulse Ox O2 Delivery O2 Flow Rate FiO2 05/20/17 17:02 100 17 100 30 05/20/17 15:46 98.9 139/77 Intake and Output 05/19/17 05/19/17 05/20/17 15:00 23:00 07:00 Intake Total 50 ml 1050 ml 1150 ml Output Total 600 ml 1750 ml Balance 50 ml 450 ml -600 ml Results Result Diagram: 05/20/1724 05/20/17 0724 Results 24 hrs Laboratory Tests Test 05/20/17 06:28 05/20/17 07:24 Lab Scanned Report REFERENCE LAB White Blood Count 6.0 # Red Blood Count 3.09 L Hemoglobin 8.8 L Hematocrit 28.0 L Mean Corpuscular Volume 90.6 Mean Corpuscular Hemoglobin 28.5 L Mean Corpuscular Hemoglobin Concent 31.4 L Red Cell Distribution Width 14.2 Platelet Count 280 Mean Platelet Volume 11.7 H Neutrophils % 71.7 Lymphocytes % 14.9 L Monocytes % 8.6 Eosinophils % 2.3 Basophils % 1.2 Nucleated Red Blood Cells % 0.0 Neutrophils # 4.3 Lymphocytes # 0.9 Monocytes # 0.5 Eosinophils # 0.1 Basophils # 0.1 Nucleated Red Blood Cells # 0.0 Sodium Level 143 Potassium Level 3.5 Chloride Level 100 Carbon Dioxide Level 32 H Anion Gap 15 Blood Urea Nitrogen 9 Creatinine 0.40 L Glucose Level 94 Calcium Level 10.4 H Medications Medications Current Medications Acetaminophen (Tylenol Liquid) 650 mg Q4 PRN GTB PAIN AND OR ELEVATED TEMP Last administered on 05/16/17 13:08; Admin Dose 650 MG; Start 04/25/17 at 23: 00 Eye Lubricant (Akwa Oint) 1 applic QID BOTH EYES Last administered on 13:10; Admin Dose 1 APPLIC; Start 04/26/17 at 09:00 Bromocriptine Mesylate (Parlodel) 30 mg DAILY GTB Last administered on 09:11; Admin Dose 30 MG; Start 04/26/17 at 09:00 Chlorhexidine Gluconate (Peridex) 15 ml BID MM Last administered on 05/20/17 09:11; Admin Dose 15 ML; Start 04/26/17 at 09:00 Ferrous Sulfate (Feosol Liquid Cup) 300 mg BID GTB Last administered on 09:11; Admin Dose 300 MG; Start 04/26/17 at 09:00 Hydrocortisone (Cortef) 20 mg DAILY GTB Last administered on 05/20/17 09:11; Admin Dose 20 MG; Start 04/26/17 at 09:00 Ondansetron HCl (Zofran Tab) 4 mg Q8 PRN GTB NAUSEA AND/OR VOMITING; Start at 23:00 Lactobacillus Acidophilus (Florajen3 Capsule) 1 each DAILY PEG Last administered on 05/20/17 09:11; Admin Dose 1 EACH; Start 04/26/17 at 09:00 Ascorbic Acid (Vitamin C) 250 mg BID GTB Last administered on 05/20/17 09:12 ; Admin Dose 250 MG; Start 04/26/17 at 09:00 Famotidine (Pepcid) 20 mg BID GTB Last administered on 05/20/17 09:11; Admin Dose 20 MG; Start 04/26/17 at 09:00 Morphine Sulfate (morphine) 2 mg Q4H PRN IV PAIN Last administered on 14:46; Admin Dose 2 MG; Start 04/26/17 at 16:30 Posaconazole (Noxafil) 400 mg Q8 PO Last administered on 05/20/17 13:10; Admin Dose 400 MG; Start 04/30/17 at 22:00 Ergocalciferol (Drisdol Liquid (Ped)) 50,000 units Q7D GTB Last administered on 05/16/17 09:02; Admin Dose 50,000 UNITS; Start 05/02/17 at 09:30 Enoxaparin Sodium (Lovenox) 50 mg Q12 SC Last administered on 05/20/17 09:19 ; Admin Dose 50 MG; Start 05/03/17 at 09:30 Diphenoxylate HCl/ Atropine (Lomotil Liquid Cup) 5 ml Q6H PRN PO DIARRHEA; Start 05/03/17 at 18:00 Collagenase (Santyl) 1 applic DAILY TOP Last administered on 05/20/17 13:11; Admin Dose 1 APPLIC; Start 05/04/17 at 14:30 Desmopressin Acetate 0.05 mg 0.05 mg DAILY GTB Last administered on 05/20/17 09:11; Admin Dose 0.05 MG; Start 05/07/17 at 09:00 Acyclovir 500 mg/ Sodium Chloride 100 ml @ 100 mls/hr Q8 IVPB Last administered on 05/20/17 13:11; Admin Dose 100 MLS/HR; Start 05/07/17 at 14:00 Meropenem/Sodium Chloride (Merrem 1 Gm/50 ml (Pmx)) 50 ml @ 100 mls/hr Q8H IVPB Last administered on 05/20/17 13:10; Admin Dose 100 MLS/HR; Start 05/12 at 13:00 Vancomycin HCl (Vancomycin Oral Syringe) 250 mg Q6 GTB Last administered on 13:10; Admin Dose 250 MG; Start 05/13/17 at 12:00 Potassium Chloride (Potassium Chloride Pwd/Soln) 20 meq BID GTB Last administered on 10/19/17at 09:12; Admin Dose 20 MEQ; Start 05/18/17 at 09:30 FARHAT RUBIO MD May 20, 2017 18:12
[2017-05-21] VITALS (26 sets, daily range): BP systolic 114–142; BP diastolic 71–91; PULSE 84–150; RESP 16–23
[2017-05-21] MEDS: morphine 2 MG INJ IV PRN (04:59)
[2017-05-21] MEDS: VANCOMYCIN HCL 250 MG/5ML POSYG GTB SCH ×3 (05:03→17:27)
[2017-05-21] MEDS: POSACONAZOLE PO SCH ×3 (05:03→21:56)
[2017-05-21] MEDS: MEROPENEM 1 GM/50ML(PMX) 50 ML IVPB SCH ×3 (05:03→20:58)
[2017-05-21] MEDS: ACYCLOVIR 500 MG in SOD CHLORIDE 0.9% 100 ML IVPB SCH ×3 (05:09→21:56)
[2017-05-21] MEDS ORDERED: VITAMIN A & D 5 GM OINT PACKET TOP ONE (06:06)
[2017-05-21 06:17] LABS: BASOPHIL # 0.1 10^3/ul (0.0-0.1); BASOPHILS % 0.9 % (0.0-2.0); EOSINOPHILS # 0.1 10^3/ul (0.0-0.5); EOSINOPHILS % 0.8 % (0.0-7.0); HEMATOCRIT 29.1 % (42.0-52.0); HEMOGLOBIN 9.3 g/dl (14.0-18.0); LYMPHOCYTES # 1.5 10^3/ul (0.8-2.9); LYMPHOCYTES % 22.3 % (15.0-51.0); MEAN CORPUSCULAR HEMOGLOBIN 28.2 pg (29.0-33.0); MEAN CORPUSCULAR VOLUME 88.2 fl (82.0-101.0); MEAN PLATELET VOLUME 11.2 fl (7.4-10.4); MONOCYTE # 0.6 10^3/ul (0.3-0.9); MONOCYTES % 9.1 % (0.0-11.0); NEUTROPHIL # 4.3 10^3/ul (1.6-7.5); NEUTROPHILS % 65.1 % (39.0-77.0); PLATELET COUNT 320 10^3/UL (140-415); RED CELL DISTRIBUTION WIDTH 13.9 % (11.5-14.5); WHITE BLOOD COUNT 6.6 10^3/ul (4.8-10.8)
[2017-05-21 07:09] LABS: CALCIUM 10.5 mg/dl (8.4-10.2); CREATININE 0.43 mg/dl (0.61-1.24); POTASSIUM 3.9 mmol/L (3.5-5.1)
[2017-05-21] MEDS: ACETAMINOPHEN 650MG/20.3ML CUP GTB PRN (09:12)
[2017-05-21] MEDS: FERROUS SULFATE 60 MG/ML 5ML CUP GTB SCH ×2 (09:12→20:55)
[2017-05-21] MEDS: CHLORHEXIDINE GLUCONATE 15 ML UD CUP MM SCH ×2 (09:12→20:56)
[2017-05-21] MEDS: POTASSIUM CHLORIDE 20 MEQ POWDER FOR ORAL SOLN GTB SCH ×2 (09:13→20:56)
[2017-05-21] MEDS: DESMOPRESSIN 0.1 MG TAB GTB SCH (09:13)
[2017-05-21] MEDS: HYDROCORTISONE 20 MG TAB GTB SCH (09:13)
[2017-05-21] MEDS: L ACIDOPHIL/B LACTIS/B LONGUM CAPSULE PEG SCH (09:13)
[2017-05-21] MEDS: BROMOCRIPTINE 2.5 MG TAB GTB SCH (09:14)
[2017-05-21] MEDS: ASCORBIC ACID 250 MG TAB GTB SCH ×2 (09:15→20:56)
[2017-05-21] MEDS: FAMOTIDINE 20 MG TAB GTB SCH ×2 (09:15→20:57)
[2017-05-21] MEDS: OCULAR LUBRICANT 3.5 GM OPH OINT BOTH EYES SCH ×4 (09:15→20:58)
[2017-05-21] MEDS: ENOXAPARIN 60 MG/0.6 ML SYG SC SCH ×2 (09:50→21:29)
--- NOTE | 2017-05-21 10:03 | RADRPT ---
PROCEDURE: XR Chest 1 View. CLINICAL INDICATION: Shortness of breath. TECHNIQUE: AP view of the chest was obtained. COMPARISON: DR ESCOBAR 05/09/2017 FINDINGS: The cardiomediastinal silhouette is within normal limits. Tracheostomy tube is stable and appears in grossly appropriate location. Ventriculoperitoneal shunt is seen over the right chest. Right-sided PICC line is stable. Moderate sized pneumothorax is identified surrounding the left lung. Depression of the left hemidiaphragm is identified. Patchy infiltrates throughout both lungs appear stable. Th e lungs are hyperexpanded. Osseous structures are intact. IMPRESSION: Moderate-sized left pneumothorax. Stable patchy infiltrates throughout both lungs. Hyperexpanded lungs. Call report: A call report of the findings was made to the patient's nurse, Kayce, at 10:02 AM on 05/21/2017 . RPTAT: AA .Alfonso Bruno MD, Date Time Electronically viewed and signed by .Alfonso Bruno MD, on 05/21/2017 10:03 .P/
[2017-05-21 10:27] LABS: ADD UMIC NO; UR ASCORBIC ACID 20 mg/dL (NEGATIVE); UR BILIRUBIN (Dip) NEGATIVE (NEGATIVE); UR BLOOD (Dip) NEGATIVE (NEGATIVE); UR CLARITY CLEAR (CLEAR); UR COLOR YELLOW (YELLOW); UR GLUCOSE (Dip) NEGATIVE (NEGATIVE); UR KETONES (Dip) NEGATIVE (NEGATIVE); UR LEUKOCYTE ESTERASE (Dip) NEGATIVE Leu/ul (NEGATIVE); UR NITRITE (Dip) NEGATIVE (NEGATIVE); UR SPECIFIC GRAVITY (Dip) 1.011 (1.003-1.030); UR TOTAL PROTEIN (Dip) NEGATIVE (NEGATIVE); UR UROBILINOGEN (Dip) NEGATIVE (NEGATIVE)
--- NOTE | 2017-05-21 10:53 | CONS ---
Date/Time of Note Date/Time of Note DATE: 05/21/17 TIME: 10:51 Assessment/Plan Assessment/Plan Chief Complaint/Hosp Course assessment/impression - disseminated coccidioides mycosis infection, meningitis. CSF from the shunt on 05/15/2017 had WBC 11 (91% mono, 9 % lymph), glu=76, begaifp=868, 05/16/2017 had WBC 4 (75% mono, 25 % lymph), glu=80, lpdlpyq=531 (last LP on record at [facility] on 03/31/2017: WBC 4 33% PMNs, RBC 16, glu <10, protein >2,000) - coccidioides CF 14:8 on 03/21/2017, CF 1:16 on 04/26/2017 - posaconazole trough level 0.32 on 04/27/2017, the dose was increased on 2016. The repeat level 0/37 on 05/07/2017 - skin and soft tissue infection of the lower lip and chin due to ESBL+E. 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 CT on 05/17/2017 showed no abscess - C diff colitis, recurrent - septic shock due to pneumonia and UTI - UTI due to ESBL+E. coli. Took pip/tazo and then meropenem - b/l pneumonia due to klebsiella, EBL+E. coli. - s/p VPS placement - VDRF s/p tracheostomy - PEG dependet status - pancytopenia, due to septic shock on admission, improved - thrombocytopenia, improved recommendations - pancultures were ordered: urinalysis urine culture, blood cultures, CXR, resp culture - pending results: CSF (VDRL, coccidioides compliment fixation, fungus culture, herpes simplex virus PCR, West Nile virus IgM/IgG, cryptococcus antigen) - continue meropenem (restart 05/09/2017-) to cover UTI, pneumonia and infection of the lower lip and chin due to ESBL+E. coli - continue IV acyclovir (05/07/2017-) for herpes labialis but also for possible herpes encephalitis while waiting for HSV PCR in CSF - will re-start IV vancomycin due to recurrent fever - continue pGT vancomycin (05/07/2017-) for C diff colitis - enteric and droplet contact precautions for C diff colitis and ESBL+E. 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: Consultation Date/Type/Reason Admit Date/Time Apr 25, 2017 at 12:31 Initial Consult Date 04/25/17 Type of Consultation: ID Referring Provider: HELEN CASTELLANO MD 24 HR Interval Summary Subjective hx not possible: pt non-verbal Exam/Review of Systems Vital Signs Vitals Vital Signs Date Time Temp Pulse Resp B/P Pulse Ox O2 Delivery O2 Flow Rate FiO2 05/21/17 09:33 144 21 98 30 05/21/17 08:29 103.2 130/91 Intake and Output 05/20/17 05/20/17 05/21/17 15:00 23:00 07:00 Intake Total 1050 ml 1100 ml Output Total 1700 ml 1000 ml Balance -650 ml 100 ml Exam Constitutional: frail, non-verbal Psych: confusion Head: other (s/p VPS placement) Eyes: nl conjunctiva, nl sclera ENMT: other (ulcer and purulence from the lower lip, indurated jaw) Neck: other (trach) Respiratory: crackles/rales Cardiovascular: nl pulses, regular rate and rhythm Gastrointestinal: non-tender, other (GT), soft Genitourinary - Male: other (FC) Musculoskeletal: nl extremities to inspection Extremities: No edema Neurological: confused, lethargic Skin: nl turgor Results Result Diagram: 05/21/17 0543 05/21/1743 Results 24 hrs Laboratory Tests Test 05/21/17 05:43 05/21/17 09:25 White Blood Count 6.6 Red Blood Count 3.30 L Hemoglobin 9.3 L Hematocrit 29.1 L Mean Corpuscular Volume 88.2 Mean Corpuscular Hemoglobin 28.2 L Mean Corpuscular Hemoglobin Concent 32.0 Red Cell Distribution Width 13.9 Platelet Count 320 Mean Platelet Volume 11.2 H Neutrophils % 65.1 Lymphocytes % 22.3 Monocytes % 9.1 Eosinophils % 0.8 Basophils % 0.9 Nucleated Red Blood Cells % 0.0 Neutrophils # 4.3 Lymphocytes # 1.5 Monocytes # 0.6 Eosinophils # 0.1 Basophils # 0.1 Nucleated Red Blood Cells # 0.0 Sodium Level 136 Potassium Level 3.9 Chloride Level 95 L Carbon Dioxide Level 34 H Anion Gap 11 Blood Urea Nitrogen 10 Creatinine 0.43 L Glucose Level 110 Calcium Level 10.5 H Urine Color YELLOW Urine Clarity CLEAR Urine pH 8.0 Urine Specific [place] 1.011 Urine Ketones NEGATIVE Urine Nitrite NEGATIVE Urine Bilirubin NEGATIVE Urine Urobilinogen NEGATIVE Urine Leukocyte Esterase NEGATIVE Urine Hemoglobin NEGATIVE Urine Glucose NEGATIVE Urine Total Protein NEGATIVE Medications Medications Current Medications Acetaminophen (Tylenol Liquid) 650 mg Q4 PRN GTB PAIN AND OR ELEVATED TEMP Last administered on 05/21/17 09:12; Admin Dose 650 MG; Start 04/25/17 at 23: 00 Eye Lubricant (Akwa Oint) 1 applic QID BOTH EYES Last administered on 09:15; Admin Dose 1 APPLIC; Start 04/26/17 at 09:00 Bromocriptine Mesylate (Parlodel) 30 mg DAILY GTB Last administered on 09:14; Admin Dose 30 MG; Start 04/26/17 at 09:00 Chlorhexidine Gluconate (Peridex) 15 ml BID MM Last administered on 05/21/17 09:12; Admin Dose 15 ML; Start 04/26/17 at 09:00 Ferrous Sulfate (Feosol Liquid Cup) 300 mg BID GTB Last administered on 09:12; Admin Dose 300 MG; Start 04/26/17 at 09:00 Hydrocortisone (Cortef) 20 mg DAILY GTB Last administered on 05/21/17 09:13; Admin Dose 20 MG; Start 04/26/17 at 09:00 Ondansetron HCl (Zofran Tab) 4 mg Q8 PRN GTB NAUSEA AND/OR VOMITING; Start at 23:00 Lactobacillus Acidophilus (Florajen3 Capsule) 1 each DAILY PEG Last administered on 05/21/17 09:13; Admin Dose 1 EACH; Start 04/26/17 at 09:00 Ascorbic Acid (Vitamin C) 250 mg BID GTB Last administered on 05/21/17 09:15 ; Admin Dose 250 MG; Start 04/26/17 at 09:00 Famotidine (Pepcid) 20 mg BID GTB Last administered on 05/21/17 09:15; Admin Dose 20 MG; Start 04/26/17 at 09:00 Morphine Sulfate (morphine) 2 mg Q4H PRN IV PAIN Last administered on 04:59; Admin Dose 2 MG; Start 04/26/17 at 16:30 Posaconazole (Noxafil) 400 mg Q8 PO Last administered on 05/21/17 05:03; Admin Dose 400 MG; Start 04/30/17 at 22:00 Ergocalciferol (Drisdol Liquid (Ped)) 50,000 units Q7D GTB Last administered on 05/16/17 09:02; Admin Dose 50,000 UNITS; Start 05/02/17 at 09:30 Enoxaparin Sodium (Lovenox) 50 mg Q12 SC Last administered on 05/21/17 09:50 ; Admin Dose 50 MG; Start 05/03/17 at 09:30 Diphenoxylate HCl/ Atropine (Lomotil Liquid Cup) 5 ml Q6H PRN PO DIARRHEA; Start 05/03/17 at 18:00 Collagenase (Santyl) 1 applic DAILY TOP Last administered on 05/20/17 13:11; Admin Dose 1 APPLIC; Start 05/04/17 at 14:30 Desmopressin Acetate 0.05 mg 0.05 mg DAILY GTB Last administered on 05/21/17 09:13; Admin Dose 0.05 MG; Start 05/07/17 at 09:00 Acyclovir 500 mg/ Sodium Chloride 100 ml @ 100 mls/hr Q8 IVPB Last administered on 05/21/17 05:09; Admin Dose 100 MLS/HR; Start 05/07/17 at 14:00 Meropenem/Sodium Chloride (Merrem 1 Gm/50 ml (Pmx)) 50 ml @ 100 mls/hr Q8H IVPB Last administered on 05/21/17 05:03; Admin Dose 100 MLS/HR; Start 05/12 at 13:00 Vancomycin HCl (Vancomycin Oral Syringe) 250 mg Q6 GTB Last administered on 05:03; Admin Dose 250 MG; Start 05/13/17 at 12:00 Potassium Chloride (Potassium Chloride Pwd/Soln) 20 meq BID GTB Last administered on 05/21/17 09:13; Admin Dose 20 MEQ; Start 05/18/17 at 09:30 ELENI EVANS M.D. May 21, 2017 10:53
[2017-05-21] MEDS ORDERED: VANCOMYCIN IV PER PHARMACY XX SCH (11:00)
--- NOTE | 2017-05-21 11:55 | CONS ---
Date/Time of Note Date/Time of Note DATE: 05/21/17 TIME: 11:54 Assessment/Plan Assessment/Plan Additional Assessment/Plan Disseminated coccidiomycosis Pneumonia Sepsis and febrile Vent dependent respiratory failure Encephalopathy DVT -Patient febrile this morning with sinus tachycardia noted on telemetry. Tachycardia likely manifestation of sepsis and fever. Blood pressure trend overall stable. Continue anticoagulation if no contraindication. Supplement potassium to maintain above 4.0 and magnesium above 2.0. Consultation Date/Type/Reason Admit Date/Time Apr 25, 2017 at 12:31 Initial Consult Date 04/25/17 Type of Consultation: cv Referring Provider: HELEN CASTELLANO MD 24 HR Interval Summary Free Text/Dictation Patient seen and examined, febrile this morning Exam/Review of Systems Vital Signs Vitals Vital Signs Date Time Temp Pulse Resp B/P Pulse Ox O2 Delivery O2 Flow Rate FiO2 05/21/17 11:02 117 17 99 30 05/21/17 08:29 103.2 130/91 Intake and Output 05/20/17 05/20/17 05/21/17 15:00 23:00 07:00 Intake Total 1050 ml 1100 ml Output Total 1700 ml 1000 ml Balance -650 ml 100 ml Exam No apparent distress, mother at bedside Head: normocephalic Neck: other (Tracheostomy) Respiratory: other (Coarse breath sounds bilaterally, no wheezing) Cardiovascular: other (S1-S2 heard), regular rate and rhythm (Tachycardic) Gastrointestinal: bowel sounds, non-tender, soft Extremities: edema (Trace) Results Result Diagram: 05/21/17 0543 05/21/17 0543 Results 24 hrs Laboratory Tests Test 05/21/17 05:43 05/21/17 09:25 White Blood Count 6.6 Red Blood Count 3.30 L Hemoglobin 9.3 L Hematocrit 29.1 L Mean Corpuscular Volume 88.2 Mean Corpuscular Hemoglobin 28.2 L Mean Corpuscular Hemoglobin Concent 32.0 Red Cell Distribution Width 13.9 Platelet Count 320 Mean Platelet Volume 11.2 H Neutrophils % 65.1 Lymphocytes % 22.3 Monocytes % 9.1 Eosinophils % 0.8 Basophils % 0.9 Nucleated Red Blood Cells % 0.0 Neutrophils # 4.3 Lymphocytes # 1.5 Monocytes # 0.6 Eosinophils # 0.1 Basophils # 0.1 Nucleated Red Blood Cells # 0.0 Sodium Level 136 Potassium Level 3.9 Chloride Level 95 L Carbon Dioxide Level 34 H Anion Gap 11 Blood Urea Nitrogen 10 Creatinine 0.43 L Glucose Level 110 Calcium Level 10.5 H Urine Color YELLOW Urine Clarity CLEAR Urine pH 8.0 Urine Specific [place] 1.011 Urine Ketones NEGATIVE Urine Nitrite NEGATIVE Urine Bilirubin NEGATIVE Urine Urobilinogen NEGATIVE Urine Leukocyte Esterase NEGATIVE Urine Hemoglobin NEGATIVE Urine Glucose NEGATIVE Urine Total Protein NEGATIVE Medications Medications Current Medications Acetaminophen (Tylenol Liquid) 650 mg Q4 PRN GTB PAIN AND OR ELEVATED TEMP Last administered on 05/21/17 09:12; Admin Dose 650 MG; Start 04/25/17 at 23: 00 Eye Lubricant (Akwa Oint) 1 applic QID BOTH EYES Last administered on 09:15; Admin Dose 1 APPLIC; Start 04/26/17 at 09:00 Bromocriptine Mesylate (Parlodel) 30 mg DAILY GTB Last administered on 09:14; Admin Dose 30 MG; Start 04/26/17 at 09:00 Chlorhexidine Gluconate (Peridex) 15 ml BID MM Last administered on 05/21/17 09:12; Admin Dose 15 ML; Start 04/26/17 at 09:00 Ferrous Sulfate (Feosol Liquid Cup) 300 mg BID GTB Last administered on 09:12; Admin Dose 300 MG; Start 04/26/17 at 09:00 Hydrocortisone (Cortef) 20 mg DAILY GTB Last administered on 05/21/17 09:13; Admin Dose 20 MG; Start 04/26/17 at 09:00 Ondansetron HCl (Zofran Tab) 4 mg Q8 PRN GTB NAUSEA AND/OR VOMITING; Start at 23:00 Lactobacillus Acidophilus (Florajen3 Capsule) 1 each DAILY PEG Last administered on 05/21/17 09:13; Admin Dose 1 EACH; Start 04/26/17 at 09:00 Ascorbic Acid (Vitamin C) 250 mg BID GTB Last administered on 05/21/17 09:15 ; Admin Dose 250 MG; Start 04/26/17 at 09:00 Famotidine (Pepcid) 20 mg BID GTB Last administered on 05/21/17 09:15; Admin Dose 20 MG; Start 04/26/17 at 09:00 Morphine Sulfate (morphine) 2 mg Q4H PRN IV PAIN Last administered on 04:59; Admin Dose 2 MG; Start 04/26/17 at 16:30 Posaconazole (Noxafil) 400 mg Q8 PO Last administered on 05/21/17 05:03; Admin Dose 400 MG; Start 04/30/17 at 22:00 Ergocalciferol (Drisdol Liquid (Ped)) 50,000 units Q7D GTB Last administered on 05/16/17 09:02; Admin Dose 50,000 UNITS; Start 05/02/17 at 09:30 Enoxaparin Sodium (Lovenox) 50 mg Q12 SC Last administered on 05/21/17 09:50 ; Admin Dose 50 MG; Start 05/03/17 at 09:30 Diphenoxylate HCl/ Atropine (Lomotil Liquid Cup) 5 ml Q6H PRN PO DIARRHEA; Start 05/03/17 at 18:00 Collagenase (Santyl) 1 applic DAILY TOP Last administered on 05/20/17 13:11; Admin Dose 1 APPLIC; Start 05/04/17 at 14:30 Desmopressin Acetate 0.05 mg 0.05 mg DAILY GTB Last administered on 05/21/17 09:13; Admin Dose 0.05 MG; Start 05/07/17 at 09:00 Acyclovir 500 mg/ Sodium Chloride 100 ml @ 100 mls/hr Q8 IVPB Last administered on 05/21/17 05:09; Admin Dose 100 MLS/HR; Start 05/07/17 at 14:00 Meropenem/Sodium Chloride (Merrem 1 Gm/50 ml (Pmx)) 50 ml @ 100 mls/hr Q8H IVPB Last administered on 05/21/17 05:03; Admin Dose 100 MLS/HR; Start 05/12 at 13:00 Vancomycin HCl (Vancomycin Oral Syringe) 250 mg Q6 GTB Last administered on 05:03; Admin Dose 250 MG; Start 05/13/17 at 12:00 Potassium Chloride 20 meq 20 meq BID GTB Last administered on 05/21/17 09:13 ; Admin Dose 20 MEQ; Start 05/18/17 at 09:30 Vancomycin HCl (Vancocin) 250 ml @ 125 mls/hr Q8H IVPB ; Start 05/21/17 at 12: 00 Oscar Awan DO May 21, 2017 11:55
--- NOTE | 2017-05-21 11:59 | CONS ---
Date/Time of Note Date/Time of Note DATE: 05/21/17 TIME: 11:56 Assessment/Plan Assessment/Plan Additional Assessment/Plan Ventilator setting; AC of 16, tidal volume 400, PEEP of 5, 30% FiO2. Chest x-ray was reviewed from today which is showing very minimal hazy bilateral alveolar infiltrates. Assessment and recommendations; 1. 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 Patient was doing fairly well then developed right lower lip infection. Currently on appropriate antibiotic regimen. 2. Chronic respiratory failure. 3. History of hydrocephalus. Continue current supportive care. Prognosis is poor. Consultation Date/Type/Reason Admit Date/Time Apr 25, 2017 at 12:31 Initial Consult Date 04/25/17 Type of Consultation: Pulmonary Referring Provider: HELEN CASTELLANO MD 24 HR Interval Summary Free Text/Dictation Patient's condition remains stable. Remains in persistent vegetative state. Has remained hemodynamically stable. General exam; young male, on ventilator via tracheostomy, unresponsive, currently in no distress. Exam/Review of Systems Vital Signs Vitals Vital Signs Date Time Temp Pulse Resp B/P Pulse Ox O2 Delivery O2 Flow Rate FiO2 05/21/17 11:02 117 17 99 30 05/21/17 08:29 103.2 130/91 Intake and Output 05/20/17 05/20/17 05/21/17 15:00 23:00 07:00 Intake Total 1050 ml 1100 ml Output Total 1700 ml 1000 ml Balance -650 ml 100 ml Exam HEENT exam; supple neck, no JVD. No lymphadenopathy. Midline trachea. Patient has fair dentition. There is mild soft tissue swelling involving the right lower lip. The colostomy in place. Chest exam; clear to auscultation. S1-S2 audible, no murmurs. Regular rhythm. Abdomen exam; soft, G-tube in place. Nondistended. No organomegaly. Bowel sounds audible. Extremity exam; no peripheral edema. 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 Results Result Diagram: 05/21/17 0543 05/21/17 0543 Results 24 hrs Laboratory Tests Test 05/21/17 05:43 05/21/17 09:25 White Blood Count 6.6 Red Blood Count 3.30 L Hemoglobin 9.3 L Hematocrit 29.1 L Mean Corpuscular Volume 88.2 Mean Corpuscular Hemoglobin 28.2 L Mean Corpuscular Hemoglobin Concent 32.0 Red Cell Distribution Width 13.9 Platelet Count 320 Mean Platelet Volume 11.2 H Neutrophils % 65.1 Lymphocytes % 22.3 Monocytes % 9.1 Eosinophils % 0.8 Basophils % 0.9 Nucleated Red Blood Cells % 0.0 Neutrophils # 4.3 Lymphocytes # 1.5 Monocytes # 0.6 Eosinophils # 0.1 Basophils # 0.1 Nucleated Red Blood Cells # 0.0 Sodium Level 136 Potassium Level 3.9 Chloride Level 95 L Carbon Dioxide Level 34 H Anion Gap 11 Blood Urea Nitrogen 10 Creatinine 0.43 L Glucose Level 110 Calcium Level 10.5 H Urine Color YELLOW Urine Clarity CLEAR Urine pH 8.0 Urine Specific [place] 1.011 Urine Ketones NEGATIVE Urine Nitrite NEGATIVE Urine Bilirubin NEGATIVE Urine Urobilinogen NEGATIVE Urine Leukocyte Esterase NEGATIVE Urine Hemoglobin NEGATIVE Urine Glucose NEGATIVE Urine Total Protein NEGATIVE Medications Medications Current Medications Acetaminophen (Tylenol Liquid) 650 mg Q4 PRN GTB PAIN AND OR ELEVATED TEMP Last administered on 05/21/17 09:12; Admin Dose 650 MG; Start 04/25/17 at 23: 00 Eye Lubricant (Akwa Oint) 1 applic QID BOTH EYES Last administered on 09:15; Admin Dose 1 APPLIC; Start 04/26/17 at 09:00 Bromocriptine Mesylate (Parlodel) 30 mg DAILY GTB Last administered on 09:14; Admin Dose 30 MG; Start 04/26/17 at 09:00 Chlorhexidine Gluconate (Peridex) 15 ml BID MM Last administered on 05/21/17 09:12; Admin Dose 15 ML; Start 04/26/17 at 09:00 Ferrous Sulfate (Feosol Liquid Cup) 300 mg BID GTB Last administered on 09:12; Admin Dose 300 MG; Start 04/26/17 at 09:00 Hydrocortisone (Cortef) 20 mg DAILY GTB Last administered on 05/21/17 09:13; Admin Dose 20 MG; Start 04/26/17 at 09:00 Ondansetron HCl (Zofran Tab) 4 mg Q8 PRN GTB NAUSEA AND/OR VOMITING; Start at 23:00 Lactobacillus Acidophilus (Florajen3 Capsule) 1 each DAILY PEG Last administered on 05/21/17 09:13; Admin Dose 1 EACH; Start 04/26/17 at 09:00 Ascorbic Acid (Vitamin C) 250 mg BID GTB Last administered on 05/21/17 09:15 ; Admin Dose 250 MG; Start 04/26/17 at 09:00 Famotidine (Pepcid) 20 mg BID GTB Last administered on 05/21/17 09:15; Admin Dose 20 MG; Start 04/26/17 at 09:00 Morphine Sulfate (morphine) 2 mg Q4H PRN IV PAIN Last administered on 04:59; Admin Dose 2 MG; Start 04/26/17 at 16:30 Posaconazole (Noxafil) 400 mg Q8 PO Last administered on 05/21/17 05:03; Admin Dose 400 MG; Start 04/30/17 at 22:00 Ergocalciferol (Drisdol Liquid (Ped)) 50,000 units Q7D GTB Last administered on 05/16/17 09:02; Admin Dose 50,000 UNITS; Start 05/02/17 at 09:30 Enoxaparin Sodium (Lovenox) 50 mg Q12 SC Last administered on 05/21/17 09:50 ; Admin Dose 50 MG; Start 05/03/17 at 09:30 Diphenoxylate HCl/ Atropine (Lomotil Liquid Cup) 5 ml Q6H PRN PO DIARRHEA; Start 05/03/17 at 18:00 Collagenase (Santyl) 1 applic DAILY TOP Last administered on 05/20/17 13:11; Admin Dose 1 APPLIC; Start 05/04/17 at 14:30 Desmopressin Acetate 0.05 mg 0.05 mg DAILY GTB Last administered on 05/21/17 09:13; Admin Dose 0.05 MG; Start 05/07/17 at 09:00 Acyclovir 500 mg/ Sodium Chloride 100 ml @ 100 mls/hr Q8 IVPB Last administered on 05/21/17 05:09; Admin Dose 100 MLS/HR; Start 05/07/17 at 14:00 Meropenem/Sodium Chloride (Merrem 1 Gm/50 ml (Pmx)) 50 ml @ 100 mls/hr Q8H IVPB Last administered on 05/21/17 05:03; Admin Dose 100 MLS/HR; Start 05/12 at 13:00 Vancomycin HCl (Vancomycin Oral Syringe) 250 mg Q6 GTB Last administered on 05:03; Admin Dose 250 MG; Start 05/13/17 at 12:00 Potassium Chloride 20 meq 20 meq BID GTB Last administered on 05/21/17 09:13 ; Admin Dose 20 MEQ; Start 05/18/17 at 09:30 Vancomycin HCl (Vancocin) 250 ml @ 125 mls/hr Q8H IVPB ; Start 05/21/17 at 12: 00 CHITO WALLS May 21, 2017 11:59
[2017-05-21] MEDS: VANCOMYCIN 1 GM in NS 250 ML IVPB SCH ×2 (12:49→19:53)
--- NOTE | 2017-05-21 15:44 | PN ---
Date/Time of Note Date/Time of Note DATE: 05/21/17 TIME: 15:43 Assessment/Plan VTE Prophylaxis VTE Prophylaxis Intervention: SCD's Lines/Catheters [facility] Type [facility] PICC Line Central line still needed: Yes Urinary Cath still in place: Yes Reason Cath still needed: urinary retention Assessment/Plan Chief Complaint/Hosp Course Patient spiked fever today in the morning, ryan-cultured, no diarrhea today. Assessment/Plan - C. difficile colitis, continue vancomycin via G-tube - Septic shock due to bilateral pneumonia and UTI, resolving. Continue antibiotics per ID. Dr Brown is following in infection disease consultation. 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 Status post ESCALATOR ATTENDANT shunt tap by Dr. Sandoval, neurosurgery. 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 Continue Lovenox. - Acute kidney injury, resolving. - Hypernatremia, resolved. Dr Sorensen is following in nephrology consultation. - Hypokalemia, continue k protocol. - Pancytopenia most likely secondary to sepsis - Dysphagia with PEG. Continue tube G-tube feeding - VDRF with tracheostomy - Hydrocephalus, status post ESCALATOR ATTENDANT shunt. Further recommendations based on clinical course. Plan of care discussed with Dr. Dozier Problems: Exam/Review of Systems Vital Signs Vitals Vital Signs Date Time Temp Pulse Resp B/P Pulse Ox O2 Delivery O2 Flow Rate FiO2 05/21/17 13:08 108 16 98 30 05/21/17 12:06 98.1 142/75 Intake and Output 05/20/17 05/20/17 05/21/17 15:00 23:00 07:00 Intake Total 1050 ml 1100 ml Output Total 1700 ml 1000 ml Balance -650 ml 100 ml Exam Constitutional: non-verbal Neck: other (Tracheostomy), supple Respiratory: diminished breath sounds Cardiovascular: nl pulses Gastrointestinal: non-tender, other (G-tube), soft Extremities: normal pulses Neurological: lethargic Results Result Diagram: 05/21/1743 05/21/1743 Results 24 hrs Laboratory Tests Test 05/21/17 05:43 05/21/17 09:25 White Blood Count 6.6 Red Blood Count 3.30 L Hemoglobin 9.3 L Hematocrit 29.1 L Mean Corpuscular Volume 88.2 Mean Corpuscular Hemoglobin 28.2 L Mean Corpuscular Hemoglobin Concent 32.0 Red Cell Distribution Width 13.9 Platelet Count 320 Mean Platelet Volume 11.2 H Neutrophils % 65.1 Lymphocytes % 22.3 Monocytes % 9.1 Eosinophils % 0.8 Basophils % 0.9 Nucleated Red Blood Cells % 0.0 Neutrophils # 4.3 Lymphocytes # 1.5 Monocytes # 0.6 Eosinophils # 0.1 Basophils # 0.1 Nucleated Red Blood Cells # 0.0 Sodium Level 136 Potassium Level 3.9 Chloride Level 95 L Carbon Dioxide Level 34 H Anion Gap 11 Blood Urea Nitrogen 10 Creatinine 0.43 L Glucose Level 110 Calcium Level 10.5 H Urine Color YELLOW Urine Clarity CLEAR Urine pH 8.0 Urine Specific [place] 1.011 Urine Ketones NEGATIVE Urine Nitrite NEGATIVE Urine Bilirubin NEGATIVE Urine Urobilinogen NEGATIVE Urine Leukocyte Esterase NEGATIVE Urine Hemoglobin NEGATIVE Urine Glucose NEGATIVE Urine Total Protein NEGATIVE Medications Medications Current Medications Acetaminophen (Tylenol Liquid) 650 mg Q4 PRN GTB PAIN AND OR ELEVATED TEMP Last administered on 05/21/17 09:12; Admin Dose 650 MG; Start 04/25/17 at 23: 00 Eye Lubricant (Akwa Oint) 1 applic QID BOTH EYES Last administered on 12:50; Admin Dose 1 APPLIC; Start 04/26/17 at 09:00 Bromocriptine Mesylate (Parlodel) 30 mg DAILY GTB Last administered on 09:14; Admin Dose 30 MG; Start 04/26/17 at 09:00 Chlorhexidine Gluconate (Peridex) 15 ml BID MM Last administered on 05/21/17 09:12; Admin Dose 15 ML; Start 04/26/17 at 09:00 Ferrous Sulfate (Feosol Liquid Cup) 300 mg BID GTB Last administered on 09:12; Admin Dose 300 MG; Start 04/26/17 at 09:00 Hydrocortisone (Cortef) 20 mg DAILY GTB Last administered on 05/21/17 09:13; Admin Dose 20 MG; Start 04/26/17 at 09:00 Ondansetron HCl (Zofran Tab) 4 mg Q8 PRN GTB NAUSEA AND/OR VOMITING; Start at 23:00 Lactobacillus Acidophilus (Florajen3 Capsule) 1 each DAILY PEG Last administered on 05/21/17 09:13; Admin Dose 1 EACH; Start 04/26/17 at 09:00 Ascorbic Acid (Vitamin C) 250 mg BID GTB Last administered on 05/21/17 09:15 ; Admin Dose 250 MG; Start 04/26/17 at 09:00 Famotidine (Pepcid) 20 mg BID GTB Last administered on 05/21/17 09:15; Admin Dose 20 MG; Start 04/26/17 at 09:00 Morphine Sulfate (morphine) 2 mg Q4H PRN IV PAIN Last administered on 04:59; Admin Dose 2 MG; Start 04/26/17 at 16:30 Posaconazole (Noxafil) 400 mg Q8 PO Last administered on 05/21/17 15:36; Admin Dose 400 MG; Start 04/30/17 at 22:00 Ergocalciferol (Drisdol Liquid (Ped)) 50,000 units Q7D GTB Last administered on 05/16/17 09:02; Admin Dose 50,000 UNITS; Start 05/02/17 at 09:30 Enoxaparin Sodium (Lovenox) 50 mg Q12 SC Last administered on 05/21/17 09:50 ; Admin Dose 50 MG; Start 05/03/17 at 09:30 Diphenoxylate HCl/ Atropine (Lomotil Liquid Cup) 5 ml Q6H PRN PO DIARRHEA; Start 05/03/17 at 18:00 Collagenase (Santyl) 1 applic DAILY TOP Last administered on 05/20/17 13:11; Admin Dose 1 APPLIC; Start 05/04/17 at 14:30 Desmopressin Acetate 0.05 mg 0.05 mg DAILY GTB Last administered on 05/21/17 09:13; Admin Dose 0.05 MG; Start 05/07/17 at 09:00 Acyclovir 500 mg/ Sodium Chloride 100 ml @ 100 mls/hr Q8 IVPB Last administered on 05/21/17 15:36; Admin Dose 100 MLS/HR; Start 05/07/17 at 14:00 Meropenem/Sodium Chloride (Merrem 1 Gm/50 ml (Pmx)) 50 ml @ 100 mls/hr Q8H IVPB Last administered on 05/21/17 12:49; Admin Dose 100 MLS/HR; Start 05/12 at 13:00 Vancomycin HCl (Vancomycin Oral Syringe) 250 mg Q6 GTB Last administered on 12:49; Admin Dose 250 MG; Start 05/13/17 at 12:00 Potassium Chloride 20 meq 20 meq BID GTB Last administered on 05/21/17 09:13 ; Admin Dose 20 MEQ; Start 05/18/17 at 09:30 Vancomycin HCl (Vancocin) 250 ml @ 125 mls/hr Q8H IVPB Last administered on 12:49; Admin Dose 125 MLS/HR; Start 05/21/17 at 12:00 Miscellaneous Information (*Rx Drug Level Order Reminder*) VANCOMYCIN TROUGH ON 05/03... ONCE ONCE XX ; Start 05/22/17 at 11:00; Stop 05/22/17 at 11:01 MANDIE DAVE May 21, 2017 15:44
[2017-05-21] MEDS: COLLAGENASE 30 GM TUBE TOP SCH (16:20)
--- NOTE | 2017-05-21 18:49 | CONS ---
Date/Time of Note Date/Time of Note DATE: 05/21/17 TIME: 18:49 Assessment/Plan Assessment/Plan Additional Assessment/Plan 1. Non Oliguric Acute kidney injury due to septic shock -Improved 2. Hypernaremia- resolved 3. Septic shock on levophed - Resolved 4. Acute on chronic resp failure s/p Tracheostomy- on ventilator, pulmonary has been following 5. H/o Fungal meningitis, currently comatose 6. 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 Hypokalemia Plan: Na 143 with DDAVP to 0.05 daily , s/p1 liter D5 W with KCl now Na improved to normal, K normal today . ID, pulmonary has been following , on IV meropenem and IV acyclovir , amphotericin is stopped on 05/16/17- Hypokalemia was due to amphotericiin induced K defect - expecting to improve since amphotericin has been stopped. will follow up Consultation Date/Type/Reason Admit Date/Time Apr 25, 2017 at 12:31 Initial Consult Date 04/25/17 Type of Consultation: NEPHROLOGY Referring Provider: HELEN CASTELLANO MD Exam/Review of Systems Vital Signs Vitals Vital Signs Date Time Temp Pulse Resp B/P Pulse Ox O2 Delivery O2 Flow Rate FiO2 05/21/17 17:24 97.7 84 20 132/74 100 Mechanical Ventilator 05/21/17 17:16 30 Intake and Output 05/20/17 05/20/17 05/21/17 15:00 23:00 07:00 Intake Total 1050 ml 1100 ml Output Total 1700 ml 1000 ml Balance -650 ml 100 ml Exam Constitutional: non-verbal Neck: other (Tracheostomy), supple Respiratory: diminished breath sounds Cardiovascular: nl pulses Gastrointestinal: non-tender, other (G-tube), soft Extremities: normal pulses Results Result Diagram: 05/21/17 0543 05/21/17 0543 Results 24 hrs Laboratory Tests Test 05/21/17 05:43 05/21/17 09:25 White Blood Count 6.6 Red Blood Count 3.30 L Hemoglobin 9.3 L Hematocrit 29.1 L Mean Corpuscular Volume 88.2 Mean Corpuscular Hemoglobin 28.2 L Mean Corpuscular Hemoglobin Concent 32.0 Red Cell Distribution Width 13.9 Platelet Count 320 Mean Platelet Volume 11.2 H Neutrophils % 65.1 Lymphocytes % 22.3 Monocytes % 9.1 Eosinophils % 0.8 Basophils % 0.9 Nucleated Red Blood Cells % 0.0 Neutrophils # 4.3 Lymphocytes # 1.5 Monocytes # 0.6 Eosinophils # 0.1 Basophils # 0.1 Nucleated Red Blood Cells # 0.0 Sodium Level 136 Potassium Level 3.9 Chloride Level 95 L Carbon Dioxide Level 34 H Anion Gap 11 Blood Urea Nitrogen 10 Creatinine 0.43 L Glucose Level 110 Calcium Level 10.5 H Urine Color YELLOW Urine Clarity CLEAR Urine pH 8.0 Urine Specific [place] 1.011 Urine Ketones NEGATIVE Urine Nitrite NEGATIVE Urine Bilirubin NEGATIVE Urine Urobilinogen NEGATIVE Urine Leukocyte Esterase NEGATIVE Urine Hemoglobin NEGATIVE Urine Glucose NEGATIVE Urine Total Protein NEGATIVE Medications Medications Current Medications Acetaminophen (Tylenol Liquid) 650 mg Q4 PRN GTB PAIN AND OR ELEVATED TEMP Last administered on 05/21/17 09:12; Admin Dose 650 MG; Start 04/25/17 at 23: 00 Eye Lubricant (Akwa Oint) 1 applic QID BOTH EYES Last administered on 17:27; Admin Dose 1 APPLIC; Start 04/26/17 at 09:00 Bromocriptine Mesylate (Parlodel) 30 mg DAILY GTB Last administered on 09:14; Admin Dose 30 MG; Start 04/26/17 at 09:00 Chlorhexidine Gluconate (Peridex) 15 ml BID MM Last administered on 05/21/17 09:12; Admin Dose 15 ML; Start 04/26/17 at 09:00 Ferrous Sulfate (Feosol Liquid Cup) 300 mg BID GTB Last administered on 09:12; Admin Dose 300 MG; Start 04/26/17 at 09:00 Hydrocortisone (Cortef) 20 mg DAILY GTB Last administered on 05/21/17 09:13; Admin Dose 20 MG; Start 04/26/17 at 09:00 Ondansetron HCl (Zofran Tab) 4 mg Q8 PRN GTB NAUSEA AND/OR VOMITING; Start at 23:00 Lactobacillus Acidophilus (Florajen3 Capsule) 1 each DAILY PEG Last administered on 05/21/17 09:13; Admin Dose 1 EACH; Start 04/26/17 at 09:00 Ascorbic Acid (Vitamin C) 250 mg BID GTB Last administered on 05/21/17 09:15 ; Admin Dose 250 MG; Start 04/26/17 at 09:00 Famotidine (Pepcid) 20 mg BID GTB Last administered on 05/21/17 09:15; Admin Dose 20 MG; Start 04/26/17 at 09:00 Morphine Sulfate (morphine) 2 mg Q4H PRN IV PAIN Last administered on 04:59; Admin Dose 2 MG; Start 04/26/17 at 16:30 Posaconazole (Noxafil) 400 mg Q8 PO Last administered on 05/21/17 15:36; Admin Dose 400 MG; Start 04/30/17 at 22:00 Ergocalciferol (Drisdol Liquid (Ped)) 50,000 units Q7D GTB Last administered on 05/16/17 09:02; Admin Dose 50,000 UNITS; Start 05/02/17 at 09:30 Enoxaparin Sodium (Lovenox) 50 mg Q12 SC Last administered on 05/21/17 09:50 ; Admin Dose 50 MG; Start 05/03/17 at 09:30 Diphenoxylate HCl/ Atropine (Lomotil Liquid Cup) 5 ml Q6H PRN PO DIARRHEA; Start 05/03/17 at 18:00 Collagenase (Santyl) 1 applic DAILY TOP Last administered on 05/21/17 16:20; Admin Dose 1 APPLIC; Start 05/04/17 at 14:30 Desmopressin Acetate 0.05 mg 0.05 mg DAILY GTB Last administered on 05/21/17 09:13; Admin Dose 0.05 MG; Start 05/07/17 at 09:00 Acyclovir 500 mg/ Sodium Chloride 100 ml @ 100 mls/hr Q8 IVPB Last administered on 05/21/17 15:36; Admin Dose 100 MLS/HR; Start 05/07/17 at 14:00 Meropenem/Sodium Chloride (Merrem 1 Gm/50 ml (Pmx)) 50 ml @ 100 mls/hr Q8H IVPB Last administered on 05/21/17 12:49; Admin Dose 100 MLS/HR; Start 05/12 at 13:00 Vancomycin HCl (Vancomycin Oral Syringe) 250 mg Q6 GTB Last administered on 17:27; Admin Dose 250 MG; Start 05/13/17 at 12:00 Potassium Chloride 20 meq 20 meq BID GTB Last administered on 05/21/17 09:13 ; Admin Dose 20 MEQ; Start 05/18/17 at 09:30 Vancomycin HCl (Vancocin) 250 ml @ 125 mls/hr Q8H IVPB Last administered on 12:49; Admin Dose 125 MLS/HR; Start 05/21/17 at 12:00 Miscellaneous Information (*Rx Drug Level Order Reminder*) VANCOMYCIN TROUGH ON 05/03... ONCE ONCE XX ; Start 05/22/17 at 11:00; Stop 05/22/17 at 11:01 FARHAT RUBIO MD May 21, 2017 18:49
[2017-05-22] VITALS (23 sets, daily range): BP systolic 106–123; BP diastolic 76–87; PULSE 88–99; RESP 16–19
[2017-05-22] MEDS: VANCOMYCIN HCL 250 MG/5ML POSYG GTB SCH ×4 (00:01→17:57)
[2017-05-22] MEDS: VANCOMYCIN 1 GM in NS 250 ML IVPB SCH ×3 (03:43→20:43)
[2017-05-22] MEDS: MEROPENEM 1 GM/50ML(PMX) 50 ML IVPB SCH ×3 (05:18→22:30)
[2017-05-22] MEDS: ACYCLOVIR 500 MG in SOD CHLORIDE 0.9% 100 ML IVPB SCH ×3 (05:36→23:30)
[2017-05-22] MEDS: POSACONAZOLE PO SCH ×2 (05:36→13:07)
[2017-05-22 06:28] LABS: BASOPHIL # 0.1 10^3/ul (0.0-0.1); BASOPHILS % 0.8 % (0.0-2.0); EOSINOPHILS # 0.2 10^3/ul (0.0-0.5); EOSINOPHILS % 2.3 % (0.0-7.0); HEMATOCRIT 26.1 % (42.0-52.0); HEMOGLOBIN 8.6 g/dl (14.0-18.0); LYMPHOCYTES # 0.9 10^3/ul (0.8-2.9); LYMPHOCYTES % 11.7 % (15.0-51.0); MEAN CORPUSCULAR HEMOGLOBIN 29.2 pg (29.0-33.0); MEAN CORPUSCULAR VOLUME 88.5 fl (82.0-101.0); MEAN PLATELET VOLUME 11.1 fl (7.4-10.4); MONOCYTE # 0.6 10^3/ul (0.3-0.9); MONOCYTES % 8.4 % (0.0-11.0); NEUTROPHIL # 5.5 10^3/ul (1.6-7.5); NEUTROPHILS % 75.6 % (39.0-77.0); PLATELET COUNT 266 10^3/UL (140-415); RED BLOOD COUNT 2.95 10^6/ul (4.70-6.10); RED CELL DISTRIBUTION WIDTH 13.8 % (11.5-14.5); WHITE BLOOD COUNT 7.3 10^3/ul (4.8-10.8)
[2017-05-22 06:58] LABS: CALCIUM 9.9 mg/dl (8.4-10.2); CREATININE 0.35 mg/dl (0.61-1.24); POTASSIUM 3.6 mmol/L (3.5-5.1)
[2017-05-22] MEDS: FERROUS SULFATE 60 MG/ML 5ML CUP GTB SCH ×2 (08:23→20:48)
[2017-05-22] MEDS: CHLORHEXIDINE GLUCONATE 15 ML UD CUP MM SCH ×2 (08:23→20:49)
[2017-05-22] MEDS: BROMOCRIPTINE 2.5 MG TAB GTB SCH (08:24)
[2017-05-22] MEDS: POTASSIUM CHLORIDE 20 MEQ POWDER FOR ORAL SOLN GTB SCH ×2 (08:24→20:49)
[2017-05-22] MEDS: L ACIDOPHIL/B LACTIS/B LONGUM CAPSULE PEG SCH (08:24)
[2017-05-22] MEDS: DESMOPRESSIN 0.1 MG TAB GTB SCH (08:24)
[2017-05-22] MEDS: COLLAGENASE 30 GM TUBE TOP SCH ×2 (08:25→16:24)
[2017-05-22] MEDS: FAMOTIDINE 20 MG TAB GTB SCH ×2 (08:25→20:48)
[2017-05-22] MEDS: ASCORBIC ACID 250 MG TAB GTB SCH ×2 (08:25→22:30)
[2017-05-22] MEDS: HYDROCORTISONE 20 MG TAB GTB SCH (08:25)
[2017-05-22] MEDS: OCULAR LUBRICANT 3.5 GM OPH OINT BOTH EYES SCH ×4 (08:26→20:50)
[2017-05-22] MEDS: ENOXAPARIN 60 MG/0.6 ML SYG SC SCH ×2 (08:28→20:52)
--- NOTE | 2017-05-22 12:31 | PN ---
Date/Time of Note Date/Time of Note DATE: 05/22/17 TIME: 12:30 Assessment/Plan VTE Prophylaxis VTE Prophylaxis Intervention: SCD's Lines/Catheters IV Catheter Type (from Nrsg): PICC Line Central line still needed: No Urinary Cath still in place: Yes Reason Cath still needed: urinary retention Assessment/Plan Assessment/Plan Disseminated coccidiomycosis Pneumonia Sepsis and febrile Vent dependent respiratory failure Encephalopathy DVT -Patient febrile this morning with sinus tachycardia noted on telemetry. Tachycardia likely manifestation of sepsis and fever. Blood pressure trend overall stable. Continue anticoagulation if no contraindication. Supplement potassium to maintain above 4.0 and magnesium above 2.0. Subjective 24 Hr Interval Summary Free Text/Dictation the patient with no cahgne Exam/Review of Systems Vital Signs Vitals Vital Signs Date Time Temp Pulse Resp B/P Pulse Ox O2 Delivery O2 Flow Rate FiO2 05/22/17 09:47 30 05/22/17 09:10 97 16 100 05/22/17 08:21 98.6 118/87 05/21/17 17:24 Mechanical Ventilator Intake and Output 05/21/17 05/21/17 05/22/17 15:00 23:00 07:00 Intake Total 1700 ml 1100 ml Output Total 1200 ml 850 ml Balance 500 ml 250 ml Results Result Diagram: 05/22/17 0546 05/22/17 0546 Results 24 hrs Laboratory Tests Test 05/22/17 05:46 05/22/17 11:13 White Blood Count 7.3 Red Blood Count 2.95 L Hemoglobin 8.6 L Hematocrit 26.1 L Mean Corpuscular Volume 88.5 Mean Corpuscular Hemoglobin 29.2 Mean Corpuscular Hemoglobin Concent 33.0 Red Cell Distribution Width 13.8 Platelet Count 266 Mean Platelet Volume 11.1 H Neutrophils % 75.6 Lymphocytes % 11.7 L Monocytes % 8.4 Eosinophils % 2.3 Basophils % 0.8 Nucleated Red Blood Cells % 0.0 Neutrophils # 5.5 Lymphocytes # 0.9 Monocytes # 0.6 Eosinophils # 0.2 Basophils # 0.1 Nucleated Red Blood Cells # 0.0 Sodium Level 135 Potassium Level 3.6 Chloride Level 94 L Carbon Dioxide Level 33 H Anion Gap 12 Blood Urea Nitrogen 11 Creatinine 0.35 L Glucose Level 118 Calcium Level 9.9 Lab Scanned Report REFERENCE LAB Medications Medications Current Medications Acetaminophen (Tylenol Liquid) 650 mg Q4 PRN GTB PAIN AND OR ELEVATED TEMP Last administered on 05/21/17 09:12; Admin Dose 650 MG; Start 04/25/17 at 23: 00 Eye Lubricant (Akwa Oint) 1 applic QID BOTH EYES Last administered on 08:26; Admin Dose 1 APPLIC; Start 04/26/17 at 09:00 Bromocriptine Mesylate (Parlodel) 30 mg DAILY GTB Last administered on 08:24; Admin Dose 30 MG; Start 04/26/17 at 09:00 Chlorhexidine Gluconate (Peridex) 15 ml BID MM Last administered on 05/22/17 08:23; Admin Dose 15 ML; Start 04/26/17 at 09:00 Ferrous Sulfate (Feosol Liquid Cup) 300 mg BID GTB Last administered on 08:23; Admin Dose 300 MG; Start 04/26/17 at 09:00 Hydrocortisone (Cortef) 20 mg DAILY GTB Last administered on 05/22/17 08:25; Admin Dose 20 MG; Start 04/26/17 at 09:00 Ondansetron HCl (Zofran Tab) 4 mg Q8 PRN GTB NAUSEA AND/OR VOMITING; Start at 23:00 Lactobacillus Acidophilus (Florajen3 Capsule) 1 each DAILY PEG Last administered on 05/22/17 08:24; Admin Dose 1 EACH; Start 04/26/17 at 09:00 Ascorbic Acid (Vitamin C) 250 mg BID GTB Last administered on 05/22/17 08:25 ; Admin Dose 250 MG; Start 04/26/17 at 09:00 Famotidine (Pepcid) 20 mg BID GTB Last administered on 05/22/17 08:25; Admin Dose 20 MG; Start 04/26/17 at 09:00 Morphine Sulfate (morphine) 2 mg Q4H PRN IV PAIN Last administered on 04:59; Admin Dose 2 MG; Start 04/26/17 at 16:30 Posaconazole (Noxafil) 400 mg Q8 PO Last administered on 05/22/17 05:36; Admin Dose 400 MG; Start 04/30/17 at 22:00 Ergocalciferol (Drisdol Liquid (Ped)) 50,000 units Q7D GTB Last administered on 05/16/17 09:02; Admin Dose 50,000 UNITS; Start 05/02/17 at 09:30 Enoxaparin Sodium (Lovenox) 50 mg Q12 SC Last administered on 05/22/17 08:28 ; Admin Dose 50 MG; Start 05/03/17 at 09:30 Diphenoxylate HCl/ Atropine (Lomotil Liquid Cup) 5 ml Q6H PRN PO DIARRHEA; Start 05/03/17 at 18:00 Collagenase (Santyl) 1 applic DAILY TOP Last administered on 05/21/17 16:20; Admin Dose 1 APPLIC; Start 05/04/17 at 14:30 Desmopressin Acetate 0.05 mg 0.05 mg DAILY GTB Last administered on 05/22/17 08:24; Admin Dose 0.05 MG; Start 05/07/17 at 09:00 Acyclovir 500 mg/ Sodium Chloride 100 ml @ 100 mls/hr Q8 IVPB Last administered on 05/22/17 05:36; Admin Dose 100 MLS/HR; Start 05/07/17 at 14:00 Meropenem/Sodium Chloride (Merrem 1 Gm/50 ml (Pmx)) 50 ml @ 100 mls/hr Q8H IVPB Last administered on 05/22/17 05:18; Admin Dose 100 MLS/HR; Start 05/12 at 13:00 Vancomycin HCl (Vancomycin Oral Syringe) 250 mg Q6 GTB Last administered on 05:36; Admin Dose 250 MG; Start 05/13/17 at 12:00 Potassium Chloride 20 meq 20 meq BID GTB Last administered on 05/22/17 08:24 ; Admin Dose 20 MEQ; Start 05/18/17 at 09:30 Vancomycin HCl (Vancocin) 250 ml @ 125 mls/hr Q8H IVPB Last administered on 03:43; Admin Dose 125 MLS/HR; Start 05/21/17 at 12:00 ORI SESAY MD May 22, 2017 12:31
--- NOTE | 2017-05-22 13:18 | CONS ---
Date/Time of Note Date/Time of Note DATE: 05/22/17 TIME: 13:11 Assessment/Plan Assessment/Plan Chief Complaint/Hosp Course assessment/impression - disseminated coccidioides mycosis infection, meningitis. CSF from the shunt on 05/15/2017 had WBC 11 (91% mono, 9 % lymph), glu=76, [id number]=768, 05/16/2017 had WBC 4 (75% mono, 25 % lymph), glu=80, bosuizk=490 (last LP on record at [facility] on 03/31/2017: WBC 4 33% PMNs, RBC 16, glu <10, protein >2,000) - coccidioides CF 1:16 on 04/26/2017, 1:8 on 05/16/2017 - posaconazole trough level 0.32 on 04/27/2017, the dose was increased on 2016. The repeat level 0.37 on 05/07/2017 - skin and soft tissue infection of the lower lip and mandible due to ESBL+E. 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 CT on 05/17/2017 showed no abscess - C diff colitis, recurrent - septic shock due to pneumonia and UTI - UTI due to ESBL+E. coli. Took pip/tazo and then meropenem - b/l pneumonia due to klebsiella, EBL+E. coli. - s/p VPS placement - VDRF s/p tracheostomy - PEG dependet status - pancytopenia, due to septic shock on admission, improved - thrombocytopenia, improved recommendations - pending results: urine culture, blood cultures, resp culture, CSF (VDRL, fungus culture, herpes simplex virus PCR, West Nile virus IgM/IgG, cryptococcus antigen) - continue meropenem (restart 05/09/2017-) to cover UTI, pneumonia and infection of the lower lip and mandible due to ESBL+E. coli - continue IV acyclovir (05/07/2017-) for herpes labialis but also for possible herpes encephalitis while waiting for HSV PCR in CSF - continue IV vancomycin due to recurrent fever (restart 05/22/2017-) - continue posaconazole to 400 mg q8hrs (posaconazole trough level 0.32 on 2016, the dose was increased on 04/29/2017, the level was 0.37 on 05/07/2017) - continue pGT vancomycin (05/07/2017-) for C diff colitis - enteric and droplet contact precautions for C diff colitis and ESBL+E. coli in sputum culture respectively management d/w Pt's mother Problems: Consultation Date/Type/Reason Admit Date/Time Apr 25, 2017 at 12:31 Initial Consult Date 04/25/17 Type of Consultation: ID Referring Provider: HELEN CASTELLANO MD 24 HR Interval Summary Subjective hx not possible: pt non-verbal Exam/Review of Systems Vital Signs Vitals Vital Signs Date Time Temp Pulse Resp B/P Pulse Ox O2 Delivery O2 Flow Rate FiO2 05/22/17 12:36 30 05/22/17 12:06 89 05/22/17 11:25 16 99 05/22/17 08:21 98.6 118/87 05/21/17 17:24 Mechanical Ventilator Intake and Output 05/21/17 05/21/17 05/22/17 14:59 22:59 06:59 Intake Total 1700 ml 1100 ml Output Total 1200 ml 850 ml Balance 500 ml 250 ml Exam Constitutional: frail, non-verbal Psych: confusion Head: atraumatic Eyes: nl conjunctiva, nl lids ENMT: nl external ears & nose, other (indurated lower lip and mandible) Neck: other (trach) Respiratory: crackles/rales, wheezing Cardiovascular: nl pulses, regular rate and rhythm Gastrointestinal: non-tender, other (GT), soft Genitourinary - Male: other (FC) Musculoskeletal: nl extremities to inspection Extremities: No edema Neurological: confused, lethargic Skin: nl turgor Results Result Diagram: 05/22/17 0546 05/22/17 0546 Results 24 hrs Laboratory Tests Test 05/22/17 05:46 05/22/17 11:13 05/22/17 11:29 White Blood Count 7.3 Red Blood Count 2.95 L Hemoglobin 8.6 L Hematocrit 26.1 L Mean Corpuscular Volume 88.5 Mean Corpuscular Hemoglobin 29.2 Mean Corpuscular Hemoglobin Concent 33.0 Red Cell Distribution Width 13.8 Platelet Count 266 Mean Platelet Volume 11.1 H Neutrophils % 75.6 Lymphocytes % 11.7 L Monocytes % 8.4 Eosinophils % 2.3 Basophils % 0.8 Nucleated Red Blood Cells % 0.0 Neutrophils # 5.5 Lymphocytes # 0.9 Monocytes # 0.6 Eosinophils # 0.2 Basophils # 0.1 Nucleated Red Blood Cells # 0.0 Sodium Level 135 Potassium Level 3.6 Chloride Level 94 L Carbon Dioxide Level 33 H Anion Gap 12 Blood Urea Nitrogen 11 Creatinine 0.35 L Glucose Level 118 Calcium Level 9.9 Lab Scanned Report REFERENCE LAB Vancomycin Level Trough 10.2 Medications Medications Current Medications Acetaminophen (Tylenol Liquid) 650 mg Q4 PRN GTB PAIN AND OR ELEVATED TEMP Last administered on 05/21/17 09:12; Admin Dose 650 MG; Start 04/25/17 at 23: 00 Eye Lubricant (Akwa Oint) 1 applic QID BOTH EYES Last administered on 08:26; Admin Dose 1 APPLIC; Start 04/26/17 at 09:00 Bromocriptine Mesylate (Parlodel) 30 mg DAILY GTB Last administered on 08:24; Admin Dose 30 MG; Start 04/26/17 at 09:00 Chlorhexidine Gluconate (Peridex) 15 ml BID MM Last administered on 05/22/17 08:23; Admin Dose 15 ML; Start 04/26/17 at 09:00 Ferrous Sulfate (Feosol Liquid Cup) 300 mg BID GTB Last administered on 08:23; Admin Dose 300 MG; Start 04/26/17 at 09:00 Hydrocortisone (Cortef) 20 mg DAILY GTB Last administered on 05/22/17 08:25; Admin Dose 20 MG; Start 04/26/17 at 09:00 Ondansetron HCl (Zofran Tab) 4 mg Q8 PRN GTB NAUSEA AND/OR VOMITING; Start at 23:00 Lactobacillus Acidophilus (Florajen3 Capsule) 1 each DAILY PEG Last administered on 05/22/17 08:24; Admin Dose 1 EACH; Start 04/26/17 at 09:00 Ascorbic Acid (Vitamin C) 250 mg BID GTB Last administered on 05/22/17 08:25 ; Admin Dose 250 MG; Start 04/26/17 at 09:00 Famotidine (Pepcid) 20 mg BID GTB Last administered on 05/22/17 08:25; Admin Dose 20 MG; Start 04/26/17 at 09:00 Morphine Sulfate (morphine) 2 mg Q4H PRN IV PAIN Last administered on 04:59; Admin Dose 2 MG; Start 04/26/17 at 16:30 Posaconazole (Noxafil) 400 mg Q8 PO Last administered on 05/22/17 05:36; Admin Dose 400 MG; Start 04/30/17 at 22:00 Ergocalciferol (Drisdol Liquid (Ped)) 50,000 units Q7D GTB Last administered on 05/16/17 09:02; Admin Dose 50,000 UNITS; Start 05/02/17 at 09:30 Enoxaparin Sodium (Lovenox) 50 mg Q12 SC Last administered on 05/22/17 08:28 ; Admin Dose 50 MG; Start 05/03/17 at 09:30 Diphenoxylate HCl/ Atropine (Lomotil Liquid Cup) 5 ml Q6H PRN PO DIARRHEA; Start 05/03/17 at 18:00 Collagenase (Santyl) 1 applic DAILY TOP Last administered on 05/21/17 16:20; Admin Dose 1 APPLIC; Start 05/04/17 at 14:30 Desmopressin Acetate 0.05 mg 0.05 mg DAILY GTB Last administered on 05/22/17 08:24; Admin Dose 0.05 MG; Start 05/07/17 at 09:00 Acyclovir 500 mg/ Sodium Chloride 100 ml @ 100 mls/hr Q8 IVPB Last administered on 05/22/17 05:36; Admin Dose 100 MLS/HR; Start 05/07/17 at 14:00 Meropenem/Sodium Chloride (Merrem 1 Gm/50 ml (Pmx)) 50 ml @ 100 mls/hr Q8H IVPB Last administered on 05/22/17 05:18; Admin Dose 100 MLS/HR; Start 05/12 at 13:00 Vancomycin HCl (Vancomycin Oral Syringe) 250 mg Q6 GTB Last administered on 05:36; Admin Dose 250 MG; Start 05/13/17 at 12:00 Potassium Chloride 20 meq 20 meq BID GTB Last administered on 05/22/17 08:24 ; Admin Dose 20 MEQ; Start 05/18/17 at 09:30 Vancomycin HCl (Vancocin) 250 ml @ 125 mls/hr Q8H IVPB Last administered on 03:43; Admin Dose 125 MLS/HR; Start 05/21/17 at 12:00 ELENI EVANS M.D. May 22, 2017 13:18
--- NOTE | 2017-05-22 15:03 | PN ---
Date/Time of Note Date/Time of Note DATE: 05/22/17 TIME: 15:01 Assessment/Plan VTE Prophylaxis VTE Prophylaxis Intervention: SCD's Lines/Catheters IV C[facility]ter Type (from [facility] PICC Line Urinary Cath still in place: Yes Assessment/Plan Assessment/Plan - C. difficile colitis, continue vancomycin via G-tube - Septic shock due to bilateral pneumonia and UTI, resolving. Continue antibiotics per ID. Dr Brown is following in infection disease consultation. 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 Status post [employer] CHEMI[employer]LY[employer] shunt tap by Dr. Sandoval, neurosurgery. 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 Continue Lovenox. - Acute kidney injury, resolving. - Hypernatremia, resolved. Dr Sorensen is following in nephrology consultation. - Hypokalemia, continue k protocol. - Pancytopenia most likely secondary to sepsis - Dysphagia with PEG. Continue tube G-tube feeding - VDRF with tracheostomy - Hydrocephalus, status post [employer]ET CHEMISTRY ANALYST shunt. Further recommendations based on clinical course. Plan of care discussed with Dr. Dozier Subjective 24 Hr Interval Summary Free Text/Dictation afebrile, no new changes reported, dw staff, ID follows, Saez cultures pending. Subjective hx not possible: pt non-verbal, pt critical status Constitutional: requiring IVF, requiring O2 Exam/Review of Systems Vital Signs Vitals Vital Signs Date Time Temp Pulse Resp B/P Pulse Ox O2 Delivery O2 Flow Rate FiO2 05/22/17 13:30 98 16 99 30 05/22/17 08:21 98.6 118/87 05/21/17 17:24 Mechanical Ventilator Intake and Output 05/21/17 05/21/17 05/22/17 15:00 23:00 07:00 Intake Total 1700 ml 1100 ml Output Total 1200 ml 850 ml Balance 500 ml 250 ml Exam Constitutional: non-verbal Respiratory: diminished breath sounds Cardiovascular: other (s1s2) Gastrointestinal: other, soft Musculoskeletal: muscle weakness Extremities: normal pulses Neurological: unresponsive Results Result Diagram: 05/22/17 0546 05/22/17 0546 Results 24 hrs Laboratory Tests Test 05/22/17 05:46 05/22/17 11:13 05/22/17 11:29 White Blood Count 7.3 Red Blood Count 2.95 L Hemoglobin 8.6 L Hematocrit 26.1 L Mean Corpuscular Volume 88.5 Mean Corpuscular Hemoglobin 29.2 Mean Corpuscular Hemoglobin Concent 33.0 Red Cell Distribution Width 13.8 Platelet Count 266 Mean Platelet Volume 11.1 H Neutrophils % 75.6 Lymphocytes % 11.7 L Monocytes % 8.4 Eosinophils % 2.3 Basophils % 0.8 Nucleated Red Blood Cells % 0.0 Neutrophils # 5.5 Lymphocytes # 0.9 Monocytes # 0.6 Eosinophils # 0.2 Basophils # 0.1 Nucleated Red Blood Cells # 0.0 Sodium Level 135 Potassium Level 3.6 Chloride Level 94 L Carbon Dioxide Level 33 H Anion Gap 12 Blood Urea Nitrogen 11 Creatinine 0.35 L Glucose Level 118 Calcium Level 9.9 Lab Scanned Report REFERENCE LAB Vancomycin Level Trough 10.2 Medications Medications Current Medications Acetaminophen (Tylenol Liquid) 650 mg Q4 PRN GTB PAIN AND OR ELEVATED TEMP Last administered on 05/21/17 09:12; Admin Dose 650 MG; Start 04/25/17 at 23: 00 Eye Lubricant (Akwa Oint) 1 applic QID BOTH EYES Last administered on 13:07; Admin Dose 1 APPLIC; Start 04/26/17 at 09:00 Bromocriptine Mesylate (Parlodel) 30 mg DAILY GTB Last administered on 08:24; Admin Dose 30 MG; Start 04/26/17 at 09:00 Chlorhexidine Gluconate (Peridex) 15 ml BID MM Last administered on 05/22/17 08:23; Admin Dose 15 ML; Start 04/26/17 at 09:00 Ferrous Sulfate (Feosol Liquid Cup) 300 mg BID GTB Last administered on 08:23; Admin Dose 300 MG; Start 04/26/17 at 09:00 Hydrocortisone (Cortef) 20 mg DAILY GTB Last administered on 05/22/17 08:25; Admin Dose 20 MG; Start 04/26/17 at 09:00 Ondansetron HCl (Zofran Tab) 4 mg Q8 PRN GTB NAUSEA AND/OR VOMITING; Start at 23:00 Lactobacillus Acidophilus (Florajen3 Capsule) 1 each DAILY PEG Last administered on 05/22/17 08:24; Admin Dose 1 EACH; Start 04/26/17 at 09:00 Ascorbic Acid (Vitamin C) 250 mg BID GTB Last administered on 05/22/17 08:25 ; Admin Dose 250 MG; Start 04/26/17 at 09:00 Famotidine (Pepcid) 20 mg BID GTB Last administered on 05/22/17 08:25; Admin Dose 20 MG; Start 04/26/17 at 09:00 Morphine Sulfate (morphine) 2 mg Q4H PRN IV PAIN Last administered on 04:59; Admin Dose 2 MG; Start 04/26/17 at 16:30 Posaconazole (Noxafil) 400 mg Q8 PO Last administered on 05/22/17 13:07; Admin Dose 400 MG; Start 04/30/17 at 22:00 Ergocalciferol (Drisdol Liquid (Ped)) 50,000 units Q7D GTB Last administered on 05/16/17 09:02; Admin Dose 50,000 UNITS; Start 05/02/17 at 09:30 Enoxaparin Sodium (Lovenox) 50 mg Q12 SC Last administered on 05/22/17 08:28 ; Admin Dose 50 MG; Start 05/03/17 at 09:30 Diphenoxylate HCl/ Atropine (Lomotil Liquid Cup) 5 ml Q6H PRN PO DIARRHEA; Start 05/03/17 at 18:00 Collagenase (Santyl) 1 applic DAILY TOP Last administered on 05/21/17 16:20; Admin Dose 1 APPLIC; Start 05/04/17 at 14:30 Desmopressin Acetate 0.05 mg 0.05 mg DAILY GTB Last administered on 05/22/17 08:24; Admin Dose 0.05 MG; Start 05/07/17 at 09:00 Acyclovir 500 mg/ Sodium Chloride 100 ml @ 100 mls/hr Q8 IVPB Last administered on 05/22/17 05:36; Admin Dose 100 MLS/HR; Start 05/07/17 at 14:00 Meropenem/Sodium Chloride (Merrem 1 Gm/50 ml (Pmx)) 50 ml @ 100 mls/hr Q8H IVPB Last administered on 05/22/17 05:18; Admin Dose 100 MLS/HR; Start 05/12 at 13:00 Vancomycin HCl (Vancomycin Oral Syringe) 250 mg Q6 GTB Last administered on 13:22; Admin Dose 250 MG; Start 05/13/17 at 12:00 Potassium Chloride 20 meq 20 meq BID GTB Last administered on 05/22/17 08:24 ; Admin Dose 20 MEQ; Start 05/18/17 at 09:30 Vancomycin HCl (Vancocin) 250 ml @ 125 mls/hr Q8H IVPB Last administered on 13:06; Admin Dose 125 MLS/HR; Start 05/21/17 at 12:00 BATSHEVA MCKEON May 22, 2017 15:03
--- NOTE | 2017-05-22 17:54 | CONS ---
Date/Time of Note Date/Time of Note DATE: 05/22/17 TIME: 17:53 Consultation Date/Type/Reason Admit Date/Time Apr 25, 2017 at 12:31 Initial Consult Date 04/25/17 Type of Consultation: NEPHROLOGY Referring Provider: HELEN CASTELLANO MD Exam/Review of Systems Vital Signs Vitals Vital Signs Date Time Temp Pulse Resp B/P Pulse Ox O2 Delivery O2 Flow Rate FiO2 05/22/17 17:05 103 16 98 30 05/22/17 08:21 98.6 118/87 05/21/17 17:24 Mechanical Ventilator Intake and Output 05/21/17 05/21/17 05/22/17 15:00 23:00 07:00 Intake Total 1700 ml 1100 ml Output Total 1200 ml 850 ml Balance 500 ml 250 ml Results Result Diagram: 05/22/17 0546 05/22/17 0546 Results 24 hrs Laboratory Tests Test 05/22/17 05:46 05/22/17 11:13 05/22/17 11:29 White Blood Count 7.3 Red Blood Count 2.95 L Hemoglobin 8.6 L Hematocrit 26.1 L Mean Corpuscular Volume 88.5 Mean Corpuscular Hemoglobin 29.2 Mean Corpuscular Hemoglobin Concent 33.0 Red Cell Distribution Width 13.8 Platelet Count 266 Mean Platelet Volume 11.1 H Neutrophils % 75.6 Lymphocytes % 11.7 L Monocytes % 8.4 Eosinophils % 2.3 Basophils % 0.8 Nucleated Red Blood Cells % 0.0 Neutrophils # 5.5 Lymphocytes # 0.9 Monocytes # 0.6 Eosinophils # 0.2 Basophils # 0.1 Nucleated Red Blood Cells # 0.0 Sodium Level 135 Potassium Level 3.6 Chloride Level 94 L Carbon Dioxide Level 33 H Anion Gap 12 Blood Urea Nitrogen 11 Creatinine 0.35 L Glucose Level 118 Calcium Level 9.9 Lab Scanned Report REFERENCE LAB Vancomycin Level Trough 10.2 Medications Medications Current Medications Acetaminophen (Tylenol Liquid) 650 mg Q4 PRN GTB PAIN AND OR ELEVATED TEMP Last administered on 05/21/17 09:12; Admin Dose 650 MG; Start 04/25/17 at 23: 00 Eye Lubricant (Akwa Oint) 1 applic QID BOTH EYES Last administered on 13:07; Admin Dose 1 APPLIC; Start 04/26/17 at 09:00 Bromocriptine Mesylate (Parlodel) 30 mg DAILY GTB Last administered on 08:24; Admin Dose 30 MG; Start 04/26/17 at 09:00 Chlorhexidine Gluconate (Peridex) 15 ml BID MM Last administered on 05/22/17 08:23; Admin Dose 15 ML; Start 04/26/17 at 09:00 Ferrous Sulfate (Feosol Liquid Cup) 300 mg BID GTB Last administered on 08:23; Admin Dose 300 MG; Start 04/26/17 at 09:00 Hydrocortisone (Cortef) 20 mg DAILY GTB Last administered on 05/22/17 08:25; Admin Dose 20 MG; Start 04/26/17 at 09:00 Ondansetron HCl (Zofran Tab) 4 mg Q8 PRN GTB NAUSEA AND/OR VOMITING; Start at 23:00 Lactobacillus Acidophilus (Florajen3 Capsule) 1 each DAILY PEG Last administered on 05/22/17 08:24; Admin Dose 1 EACH; Start 04/26/17 at 09:00 Ascorbic Acid (Vitamin C) 250 mg BID GTB Last administered on 05/22/17 08:25 ; Admin Dose 250 MG; Start 04/26/17 at 09:00 Famotidine (Pepcid) 20 mg BID GTB Last administered on 05/22/17 08:25; Admin Dose 20 MG; Start 04/26/17 at 09:00 Morphine Sulfate (morphine) 2 mg Q4H PRN IV PAIN Last administered on 04:59; Admin Dose 2 MG; Start 04/26/17 at 16:30 Posaconazole (Noxafil) 400 mg Q8 PO Last administered on 05/22/17 13:07; Admin Dose 400 MG; Start 04/30/17 at 22:00 Ergocalciferol (Drisdol Liquid (Ped)) 50,000 units Q7D GTB Last administered on 05/16/17 09:02; Admin Dose 50,000 UNITS; Start 05/02/17 at 09:30 Enoxaparin Sodium (Lovenox) 50 mg Q12 SC Last administered on 05/22/17 08:28 ; Admin Dose 50 MG; Start 05/03/17 at 09:30 Diphenoxylate HCl/ Atropine (Lomotil Liquid Cup) 5 ml Q6H PRN PO DIARRHEA; Start 05/03/17 at 18:00 Collagenase (Santyl) 1 applic DAILY TOP Last administered on 05/22/17 16:24; Admin Dose 1 APPLIC; Start 05/04/17 at 14:30 Desmopressin Acetate 0.05 mg 0.05 mg DAILY GTB Last administered on 05/22/17 08:24; Admin Dose 0.05 MG; Start 05/07/17 at 09:00 Acyclovir 500 mg/ Sodium Chloride 100 ml @ 100 mls/hr Q8 IVPB Last administered on 05/22/17 15:50; Admin Dose 100 MLS/HR; Start 05/07/17 at 14:00 Meropenem/Sodium Chloride (Merrem 1 Gm/50 ml (Pmx)) 50 ml @ 100 mls/hr Q8H IVPB Last administered on 05/22/17 15:29; Admin Dose 100 MLS/HR; Start 05/12 at 13:00 Vancomycin HCl (Vancomycin Oral Syringe) 250 mg Q6 GTB Last administered on 13:22; Admin Dose 250 MG; Start 05/13/17 at 12:00 Potassium Chloride 20 meq 20 meq BID GTB Last administered on 05/22/17 08:24 ; Admin Dose 20 MEQ; Start 05/18/17 at 09:30 Vancomycin HCl (Vancocin) 250 ml @ 125 mls/hr Q8H IVPB Last administered on 13:06; Admin Dose 125 MLS/HR; Start 05/21/17 at 12:00 FARHAT RUBIO MD May 22, 2017 17:54
--- NOTE | 2017-05-22 18:18 | CONS ---
Date/Time of Note Date/Time of Note DATE: 05/22/17 TIME: 18:17 Consult Date/Type/Reason Admit Date/Time Apr 25, 2017 at 12:31 Initial Consult Date 04/25/17 Type of Consultation: Pulm Ordering Provider: HELEN CASTELLANO MD Subjective No events Objective Vital Signs Date Time Temp Pulse Resp B/P Pulse Ox O2 Delivery O2 Flow Rate FiO2 05/22/17 17:05 103 16 98 30 05/22/17 08:21 98.6 118/87 05/21/17 17:24 Mechanical Ventilator Intake and Output 05/21/17 05/21/17 05/22/17 15:00 23:00 07:00 Intake Total 1700 ml 1100 ml Output Total 1200 ml 850 ml Balance 500 ml 250 ml Exam HEENT: Pupils equal, round, and reactive to light. Tracheostomy site clean and intact. CARDIAC: S1, S2, 1/6 systolic ejection murmur CHEST: Diminished air entry bilaterally. ABDOMEN: Mildly distended. Bowel sounds present no guarding or rebound EXTREMITIES: No cyanosis, clubbing edema +1 Results/Medications Result Diagram: 05/22/17 0546 05/22/17 0546 Results 24 hrs Laboratory Tests Test 05/22/17 05:46 05/22/17 11:13 05/22/17 11:29 White Blood Count 7.3 Red Blood Count 2.95 L Hemoglobin 8.6 L Hematocrit 26.1 L Mean Corpuscular Volume 88.5 Mean Corpuscular Hemoglobin 29.2 Mean Corpuscular Hemoglobin Concent 33.0 Red Cell Distribution Width 13.8 Platelet Count 266 Mean Platelet Volume 11.1 H Neutrophils % 75.6 Lymphocytes % 11.7 L Monocytes % 8.4 Eosinophils % 2.3 Basophils % 0.8 Nucleated Red Blood Cells % 0.0 Neutrophils # 5.5 Lymphocytes # 0.9 Monocytes # 0.6 Eosinophils # 0.2 Basophils # 0.1 Nucleated Red Blood Cells # 0.0 Sodium Level 135 Potassium Level 3.6 Chloride Level 94 L Carbon Dioxide Level 33 H Anion Gap 12 Blood Urea Nitrogen 11 Creatinine 0.35 L Glucose Level 118 Calcium Level 9.9 Lab Scanned Report REFERENCE LAB Vancomycin Level Trough 10.2 Medications Current Medications Acetaminophen (Tylenol Liquid) 650 mg Q4 PRN GTB PAIN AND OR ELEVATED TEMP Last administered on 05/21/17t 09:12; Admin Dose 650 MG; Start 04/25/17 at 23: 00 Eye Lubricant (Akwa Oint) 1 applic QID BOTH EYES Last administered on 17:57; Admin Dose 1 APPLIC; Start 04/26/17 at 09:00 Bromocriptine Mesylate (Parlodel) 30 mg DAILY GTB Last administered on 08:24; Admin Dose 30 MG; Start 04/26/17 at 09:00 Chlorhexidine Gluconate (Peridex) 15 ml BID MM Last administered on 05/22/17 08:23; Admin Dose 15 ML; Start 04/26/17 at 09:00 Ferrous Sulfate (Feosol Liquid Cup) 300 mg BID GTB Last administered on 08:23; Admin Dose 300 MG; Start 04/26/17 at 09:00 Hydrocortisone (Cortef) 20 mg DAILY GTB Last administered on 05/22/17 08:25; Admin Dose 20 MG; Start 04/26/17 at 09:00 Ondansetron HCl (Zofran Tab) 4 mg Q8 PRN GTB NAUSEA AND/OR VOMITING; Start at 23:00 Lactobacillus Acidophilus (Florajen3 Capsule) 1 each DAILY PEG Last administered on 05/22/17 08:24; Admin Dose 1 EACH; Start 04/26/17 at 09:00 Ascorbic Acid (Vitamin C) 250 mg BID GTB Last administered on 05/22/17 08:25 ; Admin Dose 250 MG; Start 04/26/17 at 09:00 Famotidine (Pepcid) 20 mg BID GTB Last administered on 05/22/17 08:25; Admin Dose 20 MG; Start 04/26/17 at 09:00 Morphine Sulfate (morphine) 2 mg Q4H PRN IV PAIN Last administered on 04:59; Admin Dose 2 MG; Start 04/26/17 at 16:30 Posaconazole (Noxafil) 400 mg Q8 PO Last administered on 05/22/17 13:07; Admin Dose 400 MG; Start 04/30/17 at 22:00 Ergocalciferol (Drisdol Liquid (Ped)) 50,000 units Q7D GTB Last administered on 05/16/17 09:02; Admin Dose 50,000 UNITS; Start 05/02/17 at 09:30 Enoxaparin Sodium (Lovenox) 50 mg Q12 SC Last administered on 05/22/17 08:28 ; Admin Dose 50 MG; Start 05/03/17 at 09:30 Diphenoxylate HCl/ Atropine (Lomotil Liquid Cup) 5 ml Q6H PRN PO DIARRHEA; Start 05/03/17 at 18:00 Collagenase (Santyl) 1 applic DAILY TOP Last administered on 05/22/17 16:24; Admin Dose 1 APPLIC; Start 05/04/17 at 14:30 Desmopressin Acetate 0.05 mg 0.05 mg DAILY GTB Last administered on 05/22/17 08:24; Admin Dose 0.05 MG; Start 05/07/17 at 09:00 Acyclovir 500 mg/ Sodium Chloride 100 ml @ 100 mls/hr Q8 IVPB Last administered on 05/22/17 15:50; Admin Dose 100 MLS/HR; Start 05/07/17 at 14:00 Meropenem/Sodium Chloride (Merrem 1 Gm/50 ml (Pmx)) 50 ml @ 100 mls/hr Q8H IVPB Last administered on 05/22/17 15:29; Admin Dose 100 MLS/HR; Start 05/12 at 13:00 Vancomycin HCl (Vancomycin Oral Syringe) 250 mg Q6 GTB Last administered on 17:57; Admin Dose 250 MG; Start 05/13/17 at 12:00 Potassium Chloride 20 meq 20 meq BID GTB Last administered on 05/22/17 08:24 ; Admin Dose 20 MEQ; Start 05/18/17 at 09:30 Vancomycin HCl (Vancocin) 250 ml @ 125 mls/hr Q8H IVPB Last administered on 13:06; Admin Dose 125 MLS/HR; Start 05/21/17 at 12:00 Assessment/Plan Additional Assessment/Plan IMP: 1. Disseminated coccidiomycosis with encephalopathy. 2. Vent dependent respiratory failure 3. s/p Septic shock 4. Hypokalemia 5. Anemia of chronic disease RECS: 1. Continue mechanical ventilation 2. Abx per ID 3. TF/Free H20 4. DVT GI prophylaxis CASI KNOWLES MD May 22, 2017 18:18
[2017-05-23] VITALS (25 sets, daily range): BP systolic 98–113; BP diastolic 60–86; PULSE 75–100; RESP 16–21
[2017-05-23] MEDS: VANCOMYCIN HCL 250 MG/5ML POSYG GTB SCH ×5 (01:04→23:18)
[2017-05-23] MEDS: POSACONAZOLE PO SCH ×4 (01:12→22:20)
--- NOTE | 2017-05-23 01:31 | CONS ---
Date/Time of Note Date/Time of Note DATE: 05/23/17 TIME: 01:30 Assessment/Plan Assessment/Plan Additional Assessment/Plan 1. Non Oliguric Acute kidney injury due to septic shock -Improved 2. Hypernaremia- resolved 3. Septic shock on levophed - Resolved 4. Acute on chronic resp failure s/p Tracheostomy- on ventilator, pulmonary has been following 5. H/o Fungal meningitis, currently comatose 6. 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 Hypokalemia Plan: Na 143 with DDAVP to 0.05 daily , s/p1 liter D5 W with KCl now Na improved to normal, K normal today . ID, pulmonary has been following , on IV meropenem and IV acyclovir , amphotericin is stopped on 05/16/17- Hypokalemia was due to amphotericiin induced K defect - expecting to improve since amphotericin has been stopped. will follow up Consultation Date/Type/Reason Admit Date/Time Apr 25, 2017 at 12:31 Initial Consult Date 04/25/17 Type of Consultation: NEPHROLOGY Referring Provider: HELEN CASTELLANO MD Exam/Review of Systems Vital Signs Vitals Vital Signs Date Time Temp Pulse Resp B/P Pulse Ox O2 Delivery O2 Flow Rate FiO2 05/23/17 00:20 98.9 99 19 113/86 98 05/22/17 23:35 30 05/21/17 17:24 Mechanical Ventilator Intake and Output 05/22/17 05/22/17 05/23/17 15:00 23:00 07:00 Intake Total 1200 ml Output Total 1500 ml Balance -300 ml Results Result Diagram: 05/22/17 0546 05/22/17 0546 Results 24 hrs Laboratory Tests Test 05/22/17 05:46 05/22/17 11:13 05/22/17 11:29 White Blood Count 7.3 Red Blood Count 2.95 L Hemoglobin 8.6 L Hematocrit 26.1 L Mean Corpuscular Volume 88.5 Mean Corpuscular Hemoglobin 29.2 Mean Corpuscular Hemoglobin Concent 33.0 Red Cell Distribution Width 13.8 Platelet Count 266 Mean Platelet Volume 11.1 H Neutrophils % 75.6 Lymphocytes % 11.7 L Monocytes % 8.4 Eosinophils % 2.3 Basophils % 0.8 Nucleated Red Blood Cells % 0.0 Neutrophils # 5.5 Lymphocytes # 0.9 Monocytes # 0.6 Eosinophils # 0.2 Basophils # 0.1 Nucleated Red Blood Cells # 0.0 Sodium Level 135 Potassium Level 3.6 Chloride Level 94 L Carbon Dioxide Level 33 H Anion Gap 12 Blood Urea Nitrogen 11 Creatinine 0.35 L Glucose Level 118 Calcium Level 9.9 Lab Scanned Report REFERENCE LAB Vancomycin Level Trough 10.2 Medications Medications Current Medications Acetaminophen (Tylenol Liquid) 650 mg Q4 PRN GTB PAIN AND OR ELEVATED TEMP Last administered on 05/21/17 09:12; Admin Dose 650 MG; Start 04/25/17 at 23: 00 Eye Lubricant (Akwa Oint) 1 applic QID BOTH EYES Last administered on 20:50; Admin Dose 1 APPLIC; Start 04/26/17 at 09:00 Bromocriptine Mesylate (Parlodel) 30 mg DAILY GTB Last administered on 08:24; Admin Dose 30 MG; Start 04/26/17 at 09:00 Chlorhexidine Gluconate (Peridex) 15 ml BID MM Last administered on 05/22/17 20:49; Admin Dose 15 ML; Start 04/26/17 at 09:00 Ferrous Sulfate (Feosol Liquid Cup) 300 mg BID GTB Last administered on 20:48; Admin Dose 300 MG; Start 04/26/17 at 09:00 Hydrocortisone (Cortef) 20 mg DAILY GTB Last administered on 05/22/17 08:25; Admin Dose 20 MG; Start 04/26/17 at 09:00 Ondansetron HCl (Zofran Tab) 4 mg Q8 PRN GTB NAUSEA AND/OR VOMITING; Start at 23:00 Lactobacillus Acidophilus (Florajen3 Capsule) 1 each DAILY PEG Last administered on 05/22/17 08:24; Admin Dose 1 EACH; Start 04/26/17 at 09:00 Ascorbic Acid (Vitamin C) 250 mg BID GTB Last administered on 05/22/17 22:30 ; Admin Dose 250 MG; Start 04/26/17 at 09:00 Famotidine (Pepcid) 20 mg BID GTB Last administered on 05/22/17 20:48; Admin Dose 20 MG; Start 04/26/17 at 09:00 Morphine Sulfate (morphine) 2 mg Q4H PRN IV PAIN Last administered on 04:59; Admin Dose 2 MG; Start 04/26/17 at 16:30 Posaconazole (Noxafil) 400 mg Q8 PO Last administered on 05/23/17 01:12; Admin Dose 400 MG; Start 04/30/17 at 22:00 Ergocalciferol (Drisdol Liquid (Ped)) 50,000 units Q7D GTB Last administered on 05/16/17 09:02; Admin Dose 50,000 UNITS; Start 05/02/17 at 09:30 Enoxaparin Sodium (Lovenox) 50 mg Q12 SC Last administered on 05/22/17 20:52 ; Admin Dose 50 MG; Start 05/03/17 at 09:30 Diphenoxylate HCl/ Atropine (Lomotil Liquid Cup) 5 ml Q6H PRN PO DIARRHEA; Start 05/03/17 at 18:00 Collagenase (Santyl) 1 applic DAILY TOP Last administered on 05/22/17 16:24; Admin Dose 1 APPLIC; Start 05/04/17 at 14:30 Desmopressin Acetate 0.05 mg 0.05 mg DAILY GTB Last administered on 05/22/17 08:24; Admin Dose 0.05 MG; Start 05/07/17 at 09:00 Acyclovir 500 mg/ Sodium Chloride 100 ml @ 100 mls/hr Q8 IVPB Last administered on 05/22/17 23:30; Admin Dose 100 MLS/HR; Start 05/07/17 at 14:00 Meropenem/Sodium Chloride (Merrem 1 Gm/50 ml (Pmx)) 50 ml @ 100 mls/hr Q8H IVPB Last administered on 05/22/17 22:30; Admin Dose 100 MLS/HR; Start 05/12 at 13:00 Vancomycin HCl (Vancomycin Oral Syringe) 250 mg Q6 GTB Last administered on 01:04; Admin Dose 250 MG; Start 05/13/17 at 12:00 Potassium Chloride 20 meq 20 meq BID GTB Last administered on 05/22/17 20:49 ; Admin Dose 20 MEQ; Start 05/18/17 at 09:30 Vancomycin HCl (Vancocin) 250 ml @ 125 mls/hr Q8H IVPB Last administered on t 20:43; Admin Dose 125 MLS/HR; Start 05/21/17 at 12:00 FARHAT RUBIO MD May 23, 2017 01:31
[2017-05-23] MEDS: VANCOMYCIN 1 GM in NS 250 ML IVPB SCH ×3 (04:11→20:14)
[2017-05-23] MEDS: MEROPENEM 1 GM/50ML(PMX) 50 ML IVPB SCH ×3 (05:12→22:20)
[2017-05-23] MEDS: ACYCLOVIR 500 MG in SOD CHLORIDE 0.9% 100 ML IVPB SCH ×3 (06:26→23:16)
[2017-05-23] MEDS: DESMOPRESSIN 0.1 MG TAB GTB SCH (08:24)
[2017-05-23] MEDS: POTASSIUM CHLORIDE 20 MEQ POWDER FOR ORAL SOLN GTB SCH ×2 (08:25→20:20)
[2017-05-23] MEDS: CHLORHEXIDINE GLUCONATE 15 ML UD CUP MM SCH ×2 (08:25→20:20)
[2017-05-23] MEDS: BROMOCRIPTINE 2.5 MG TAB GTB SCH (08:25)
[2017-05-23] MEDS: L ACIDOPHIL/B LACTIS/B LONGUM CAPSULE PEG SCH (08:25)
[2017-05-23] MEDS: FAMOTIDINE 20 MG TAB GTB SCH ×2 (08:25→20:20)
[2017-05-23] MEDS: HYDROCORTISONE 20 MG TAB GTB SCH (08:25)
[2017-05-23] MEDS: ASCORBIC ACID 250 MG TAB GTB SCH ×2 (08:25→20:20)
[2017-05-23] MEDS: FERROUS SULFATE 60 MG/ML 5ML CUP GTB SCH ×2 (08:25→20:19)
[2017-05-23] MEDS: OCULAR LUBRICANT 3.5 GM OPH OINT BOTH EYES SCH ×4 (08:26→20:19)
[2017-05-23] MEDS: COLLAGENASE 30 GM TUBE TOP SCH (08:27)
[2017-05-23] MEDS: ENOXAPARIN 60 MG/0.6 ML SYG SC SCH ×2 (08:41→20:32)
--- NOTE | 2017-05-23 10:04 | CONS ---
Date/Time of Note Date/Time of Note DATE: 05/23/17 TIME: 10:01 Assessment/Plan Assessment/Plan Chief Complaint/Hosp Course assessment/impression - disseminated coccidioides mycosis infection, meningitis. CSF from the shunt on 05/15/2017 had WBC 11 (91% mono, 9 % lymph), glu=76, goecfgp=569, 05/16/2017 had WBC 4 (75% mono, 25 % lymph), glu=80, hqvgewv=757 (last LP on record at [facility] on 03/31/2017: WBC 4 33% PMNs, RBC 16, glu <10, protein >2,000) - coccidioides CF 1:16 on 04/26/2017, 1:8 on 05/16/2017 - posaconazole trough level 0.32 on 04/27/2017, the dose was increased on 2016. The repeat level 0.37 on 05/07/2017 - skin and soft tissue infection of the lower lip and mandible due to ESBL+E. 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 CT on 05/17/2017 showed no abscess - C diff colitis, recurrent - septic shock due to pneumonia and UTI - UTI due to ESBL+E. coli. Took pip/tazo and then meropenem - b/l pneumonia due to klebsiella, EBL+E. coli. - s/p VPS placement - VDRF s/p tracheostomy - PEG dependet status - pancytopenia, due to septic shock on admission, improved - thrombocytopenia, improved recommendations - pending results: urine culture, blood cultures, resp culture, CSF (VDRL, fungus culture, herpes simplex virus PCR, cryptococcus antigen) - continue meropenem (restart 05/09/2017-) to cover pneumonia and infection of the lower lip and mandible due to ESBL+E. coli - continue IV acyclovir (05/07/2017-) for herpes labialis but also for possible herpes encephalitis while waiting for HSV PCR in CSF - continue IV vancomycin due to recurrent fever (restart 05/22/2017-) - continue posaconazole to 400 mg q8hrs (posaconazole trough level 0.32 on 2016, the dose was increased on 04/29/2017, the level was 0.37 on 05/07/2017) - continue pGT vancomycin (05/07/2017-) for C diff colitis while Pt's on broad spectrum antibiotics - enteric and droplet contact precautions for C diff colitis and ESBL+E. coli in sputum culture respectively Problems: Consultation Date/Type/Reason Admit Date/Time Apr 25, 2017 at 12:31 Initial Consult Date 04/25/17 Type of Consultation: ID Referring Provider: HELEN CASTELLANO MD 24 HR Interval Summary Subjective hx not possible: pt non-verbal Exam/Review of Systems Vital Signs Vitals Vital Signs Date Time Temp Pulse Resp B/P Pulse Ox O2 Delivery O2 Flow Rate FiO2 05/23/17 09:05 98 16 99 30 05/23/17 08:07 98.6 107/60 05/21/17 17:24 Mechanical Ventilator Intake and Output 05/22/17 05/22/17 05/23/17 15:00 23:00 07:00 Intake Total 1200 ml 1300 ml Output Total 1500 ml 1500 ml Balance -300 ml -200 ml Exam Constitutional: frail, non-verbal Psych: confusion Head: other (s/p VPS placement) Eyes: nl conjunctiva, nl lids ENMT: nl external ears & nose, other (indurated lower lip and mandible, with ulcers and crusts on the lower lip) Neck: other (trach) Respiratory: crackles/rales, wheezing Cardiovascular: nl pulses, regular rate and rhythm Gastrointestinal: non-tender, other (GT), soft Genitourinary - Male: other (FC) Musculoskeletal: nl extremities to inspection Extremities: No edema Neurological: confused, lethargic Skin: nl turgor Results Result Diagram: 05/22/17 0546 05/22/17 0546 Results 24 hrs Laboratory Tests Test 05/22/17 11:13 05/22/17 11:29 Lab Scanned Report REFERENCE LAB Vancomycin Level Trough 10.2 Medications Medications Current Medications Acetaminophen (Tylenol Liquid) 650 mg Q4 PRN GTB PAIN AND OR ELEVATED TEMP Last administered on 05/21/17 09:12; Admin Dose 650 MG; Start 04/25/17 at 23: 00 Eye Lubricant (Akwa Oint) 1 applic QID BOTH EYES Last administered on 08:26; Admin Dose 1 APPLIC; Start 04/26/17 at 09:00 Bromocriptine Mesylate (Parlodel) 30 mg DAILY GTB Last administered on 08:25; Admin Dose 30 MG; Start 04/26/17 at 09:00 Chlorhexidine Gluconate (Peridex) 15 ml BID MM Last administered on 05/23/17 08:25; Admin Dose 15 ML; Start 04/26/17 at 09:00 Ferrous Sulfate (Feosol Liquid Cup) 300 mg BID GTB Last administered on 08:25; Admin Dose 300 MG; Start 04/26/17 at 09:00 Hydrocortisone (Cortef) 20 mg DAILY GTB Last administered on 05/23/17 08:25; Admin Dose 20 MG; Start 04/26/17 at 09:00 Ondansetron HCl (Zofran Tab) 4 mg Q8 PRN GTB NAUSEA AND/OR VOMITING; Start at 23:00 Lactobacillus Acidophilus (Florajen3 Capsule) 1 each DAILY PEG Last administered on 05/23/17 08:25; Admin Dose 1 EACH; Start 04/26/17 at 09:00 Ascorbic Acid (Vitamin C) 250 mg BID GTB Last administered on 05/23/17 08:25 ; Admin Dose 250 MG; Start 04/26/17 at 09:00 Famotidine (Pepcid) 20 mg BID GTB Last administered on 05/23/17 08:25; Admin Dose 20 MG; Start 04/26/17 at 09:00 Morphine Sulfate (morphine) 2 mg Q4H PRN IV PAIN Last administered on 04:59; Admin Dose 2 MG; Start 04/26/17 at 16:30 Posaconazole (Noxafil) 400 mg Q8 PO Last administered on 05/23/17 06:27; Admin Dose 400 MG; Start 04/30/17 at 22:00 Ergocalciferol (Drisdol Liquid (Ped)) 50,000 units Q7D GTB Last administered on 05/16/17 09:02; Admin Dose 50,000 UNITS; Start 05/02/17 at 09:30 Enoxaparin Sodium (Lovenox) 50 mg Q12 SC Last administered on 05/23/17 08:41 ; Admin Dose 50 MG; Start 05/03/17 at 09:30 Diphenoxylate HCl/ Atropine (Lomotil Liquid Cup) 5 ml Q6H PRN PO DIARRHEA; Start 05/03/17 at 18:00 Collagenase (Santyl) 1 applic DAILY TOP Last administered on 05/23/17 08:27; Admin Dose 1 APPLIC; Start 05/04/17 at 14:30 Desmopressin Acetate 0.05 mg 0.05 mg DAILY GTB Last administered on 05/23/17 08:24; Admin Dose 0.05 MG; Start 05/07/17 at 09:00 Acyclovir 500 mg/ Sodium Chloride 100 ml @ 100 mls/hr Q8 IVPB Last administered on 05/23/17 06:26; Admin Dose 100 MLS/HR; Start 05/07/17 at 14:00 Meropenem/Sodium Chloride (Merrem 1 Gm/50 ml (Pmx)) 50 ml @ 100 mls/hr Q8H IVPB Last administered on 05/23/17 05:12; Admin Dose 100 MLS/HR; Start 05/12 at 13:00 Vancomycin HCl (Vancomycin Oral Syringe) 250 mg Q6 GTB Last administered on 06:27; Admin Dose 250 MG; Start 05/13/17 at 12:00 Potassium Chloride 20 meq 20 meq BID GTB Last administered on 05/23/17 08:25 ; Admin Dose 20 MEQ; Start 05/18/17 at 09:30 Vancomycin HCl (Vancocin) 250 ml @ 125 mls/hr Q8H IVPB Last administered on 04:11; Admin Dose 125 MLS/HR; Start 05/21/17 at 12:00 ELENI EVANS M.D. May 23, 2017 10:04
[2017-05-23] MEDS: ERGOCALCIFEROL (8000 UNITS/ML PO SYG) GTB SCH (11:42)
--- NOTE | 2017-05-23 11:49 | CONS ---
Date/Time of Note Date/Time of Note DATE: 05/23/17 TIME: 11:47 Assessment/Plan Assessment/Plan Additional Assessment/Plan 1. Non Oliguric Acute kidney injury due to septic shock -Improved 2. Hypernaremia- resolved 3. Septic shock on levophed - Resolved 4. Acute on chronic resp failure s/p Tracheostomy- on ventilator, pulmonary has been following 5. H/o Fungal meningitis, currently comatose 6. 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 Hypokalemia Plan: Na 135 with DDAVP to 0.05 daily , Cr and electolytes stable ID, pulmonary has been following , on IV meropenem and IV acyclovir , amphotericin is stopped on 05/16/17- Hypokalemia was due to amphotericiin induced K defect - expecting to improve since amphotericin has been stopped. will follow up Consultation Date/Type/Reason Admit Date/Time Apr 25, 2017 at 12:31 Initial Consult Date 04/25/17 Type of Consultation: NEPHROLOGY Referring Provider: HELEN CASTELLANO MD 24 HR Interval Summary Free Text/Dictation Cr and Electrolytes stable today Exam/Review of Systems Vital Signs Vitals Vital Signs Date Time Temp Pulse Resp B/P Pulse Ox O2 Delivery O2 Flow Rate FiO2 05/23/17 11:10 83 16 100 30 05/23/17 08:07 98.6 107/60 05/21/17 17:24 Mechanical Ventilator Intake and Output 05/22/17 05/22/17 05/23/17 15:00 23:00 07:00 Intake Total 1200 ml 1300 ml Output Total 1500 ml 1500 ml Balance -300 ml -200 ml Exam Constitutional: non-verbal Neck: other (Tracheostomy), supple Respiratory: diminished breath sounds Cardiovascular: nl pulses Gastrointestinal: non-tender, other (G-tube), soft Extremities: normal pulses Results Result Diagram: 05/22/17 0546 05/22/17 0546 Medications Medications Current Medications Acetaminophen (Tylenol Liquid) 650 mg Q4 PRN GTB PAIN AND OR ELEVATED TEMP Last administered on 05/21/17t 09:12; Admin Dose 650 MG; Start 04/25/17 at 23: 00 Eye Lubricant (Akwa Oint) 1 applic QID BOTH EYES Last administered on 08:26; Admin Dose 1 APPLIC; Start 04/26/17 at 09:00 Bromocriptine Mesylate (Parlodel) 30 mg DAILY GTB Last administered on 08:25; Admin Dose 30 MG; Start 04/26/17 at 09:00 Chlorhexidine Gluconate (Peridex) 15 ml BID MM Last administered on 05/23/17 08:25; Admin Dose 15 ML; Start 04/26/17 at 09:00 Ferrous Sulfate (Feosol Liquid Cup) 300 mg BID GTB Last administered on 08:25; Admin Dose 300 MG; Start 04/26/17 at 09:00 Hydrocortisone (Cortef) 20 mg DAILY GTB Last administered on 05/23/17 08:25; Admin Dose 20 MG; Start 04/26/17 at 09:00 Ondansetron HCl (Zofran Tab) 4 mg Q8 PRN GTB NAUSEA AND/OR VOMITING; Start at 23:00 Lactobacillus Acidophilus (Florajen3 Capsule) 1 each DAILY PEG Last administered on 05/23/17 08:25; Admin Dose 1 EACH; Start 04/26/17 at 09:00 Ascorbic Acid (Vitamin C) 250 mg BID GTB Last administered on 05/23/17 08:25 ; Admin Dose 250 MG; Start 04/26/17 at 09:00 Famotidine (Pepcid) 20 mg BID GTB Last administered on 05/23/17 08:25; Admin Dose 20 MG; Start 04/26/17 at 09:00 Morphine Sulfate (morphine) 2 mg Q4H PRN IV PAIN Last administered on 04:59; Admin Dose 2 MG; Start 04/26/17 at 16:30 Posaconazole (Noxafil) 400 mg Q8 PO Last administered on 05/23/17 06:27; Admin Dose 400 MG; Start 04/30/17 at 22:00 Ergocalciferol (Drisdol Liquid (Ped)) 50,000 units Q7D GTB Last administered on 05/23/17 11:42; Admin Dose 50,000 UNITS; Start 05/02/17 at 09:30 Enoxaparin Sodium (Lovenox) 50 mg Q12 SC Last administered on 05/23/17 08:41 ; Admin Dose 50 MG; Start 05/03/17 at 09:30 Diphenoxylate HCl/ Atropine (Lomotil Liquid Cup) 5 ml Q6H PRN PO DIARRHEA; Start 05/03/17 at 18:00 Collagenase (Santyl) 1 applic DAILY TOP Last administered on 05/23/17 08:27; Admin Dose 1 APPLIC; Start 05/04/17 at 14:30 Desmopressin Acetate 0.05 mg 0.05 mg DAILY GTB Last administered on 05/23/17 08:24; Admin Dose 0.05 MG; Start 05/07/17 at 09:00 Acyclovir 500 mg/ Sodium Chloride 100 ml @ 100 mls/hr Q8 IVPB Last administered on 05/23/17 06:26; Admin Dose 100 MLS/HR; Start 05/07/17 at 14:00 Meropenem/Sodium Chloride (Merrem 1 Gm/50 ml (Pmx)) 50 ml @ 100 mls/hr Q8H IVPB Last administered on 05/23/17 05:12; Admin Dose 100 MLS/HR; Start 05/12 at 13:00 Vancomycin HCl (Vancomycin Oral Syringe) 250 mg Q6 GTB Last administered on 11:42; Admin Dose 250 MG; Start 05/13/17 at 12:00 Potassium Chloride 20 meq 20 meq BID GTB Last administered on 05/23/17 08:25 ; Admin Dose 20 MEQ; Start 05/18/17 at 09:30 Vancomycin HCl (Vancocin) 250 ml @ 125 mls/hr Q8H IVPB Last administered on 11:42; Admin Dose 125 MLS/HR; Start 05/21/17 at 12:00 FARHAT RUBIO MD May 23, 2017 11:49
--- NOTE | 2017-05-23 16:04 | PN ---
Date/Time of Note Date/Time of Note DATE: 05/23/17 TIME: 16:03 Assessment/Plan VTE Prophylaxis VTE Prophylaxis Intervention: other Lines/Catheters IV Catheter Type (from [facility]): PICC Line Urinary Cath still in place: Yes Assessment/Plan Assessment/Plan - C. difficile colitis, continue vancomycin via G-tube - Septic shock due to bilateral pneumonia and UTI, resolving. Continue antibiotics per ID. Dr Brown is following in infection disease consultation. 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 Status post STATION BAGGAGE AGENT shunt tap by Dr. Sandoval, neurosurgery. 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 Continue Lovenox. - Acute kidney injury, resolving. - Hypernatremia, resolved. Dr Sorensen is following in nephrology consultation. - Hypokalemia, continue k protocol. - Pancytopenia most likely secondary to sepsis - Dysphagia with PEG. Continue tube G-tube feeding - VDRF with tracheostomy - Hydrocephalus, status post STATION BAGGAGE AGENT shunt. Further recommendations based on clinical course. Plan of care discussed with Dr. Dozier Subjective Subjective 24 Hr Interval Summary Subjective hx not possible: pt non-verbal Constitutional: requiring IVF, requiring O2 Exam/Review of Systems Vital Signs Vitals Vital Signs Date Time Temp Pulse Resp B/P Pulse Ox O2 Delivery O2 Flow Rate FiO2 05/23/17 15:05 85 16 99 30 05/23/17 12:09 98.1 98/68 05/21/17 17:24 Mechanical Ventilator Intake and Output 05/22/17 05/22/17 05/23/17 15:00 23:00 07:00 Intake Total 1200 ml 1300 ml Output Total 1500 ml 1500 ml Balance -300 ml -200 ml Exam Constitutional: non-verbal Neurological: unresponsive Results Result Diagram: 05/22/17 0546 05/22/17 0546 Medications Medications Current Medications Acetaminophen (Tylenol Liquid) 650 mg Q4 PRN GTB PAIN AND OR ELEVATED TEMP Last administered on 05/21/17 09:12; Admin Dose 650 MG; Start 04/25/17 at 23: 00 Eye Lubricant (Akwa Oint) 1 applic QID BOTH EYES Last administered on 12:44; Admin Dose 1 APPLIC; Start 04/26/17 at 09:00 Bromocriptine Mesylate (Parlodel) 30 mg DAILY GTB Last administered on 08:25; Admin Dose 30 MG; Start 04/26/17 at 09:00 Chlorhexidine Gluconate (Peridex) 15 ml BID MM Last administered on 05/23/17 08:25; Admin Dose 15 ML; Start 04/26/17 at 09:00 Ferrous Sulfate (Feosol Liquid Cup) 300 mg BID GTB Last administered on 08:25; Admin Dose 300 MG; Start 04/26/17 at 09:00 Hydrocortisone (Cortef) 20 mg DAILY GTB Last administered on 05/23/17 08:25; Admin Dose 20 MG; Start 04/26/17 at 09:00 Ondansetron HCl (Zofran Tab) 4 mg Q8 PRN GTB NAUSEA AND/OR VOMITING; Start at 23:00 Lactobacillus Acidophilus (Florajen3 Capsule) 1 each DAILY PEG Last administered on 05/23/17 08:25; Admin Dose 1 EACH; Start 04/26/17 at 09:00 Ascorbic Acid (Vitamin C) 250 mg BID GTB Last administered on 05/23/17 08:25 ; Admin Dose 250 MG; Start 04/26/17 at 09:00 Famotidine (Pepcid) 20 mg BID GTB Last administered on 05/23/17 08:25; Admin Dose 20 MG; Start 04/26/17 at 09:00 Morphine Sulfate (morphine) 2 mg Q4H PRN IV PAIN Last administered on 04:59; Admin Dose 2 MG; Start 04/26/17 at 16:30 Posaconazole (Noxafil) 400 mg Q8 PO Last administered on 05/23/17 14:57; Admin Dose 400 MG; Start 04/30/17 at 22:00 Ergocalciferol (Drisdol Liquid (Ped)) 50,000 units Q7D GTB Last administered on 05/23/17 11:42; Admin Dose 50,000 UNITS; Start 05/02/17 at 09:30 Enoxaparin Sodium (Lovenox) 50 mg Q12 SC Last administered on 05/23/17 08:41 ; Admin Dose 50 MG; Start 05/03/17 at 09:30 Diphenoxylate HCl/ Atropine (Lomotil Liquid Cup) 5 ml Q6H PRN PO DIARRHEA; Start 05/03/17 at 18:00 Collagenase (Santyl) 1 applic DAILY TOP Last administered on 05/23/17 08:27; Admin Dose 1 APPLIC; Start 05/04/17 at 14:30 Desmopressin Acetate 0.05 mg 0.05 mg DAILY GTB Last administered on 05/23/17 08:24; Admin Dose 0.05 MG; Start 05/07/17 at 09:00 Acyclovir 500 mg/ Sodium Chloride 100 ml @ 100 mls/hr Q8 IVPB Last administered on 05/23/17 14:57; Admin Dose 100 MLS/HR; Start 05/07/17 at 14:00 Meropenem/Sodium Chloride (Merrem 1 Gm/50 ml (Pmx)) 50 ml @ 100 mls/hr Q8H IVPB Last administered on 05/23/17 14:18; Admin Dose 100 MLS/HR; Start 05/12 at 13:00 Vancomycin HCl (Vancomycin Oral Syringe) 250 mg Q6 GTB Last administered on 11:42; Admin Dose 250 MG; Start 05/13/17 at 12:00 Potassium Chloride 20 meq 20 meq BID GTB Last administered on 05/23/17 08:25 ; Admin Dose 20 MEQ; Start 05/18/17 at 09:30 Vancomycin HCl (Vancocin) 250 ml @ 125 mls/hr Q8H IVPB Last administered on 11:42; Admin Dose 125 MLS/HR; Start 05/21/17 at 12:00 BATSHEVA MCKEON May 23, 2017 16:04
--- NOTE | 2017-05-23 16:55 | CONS ---
Date/Time of Note Date/Time of Note DATE: 05/23/17 TIME: 16:54 Consult Date/Type/Reason Admit Date/Time Apr 25, 2017 at 12:31 Initial Consult Date 04/25/17 Type of Consultation: Pulm Ordering Provider: HELEN CASTELLANO MD Subjective No events on the vent. Objective Vital Signs Date Time Temp Pulse Resp B/P Pulse Ox O2 Delivery O2 Flow Rate FiO2 05/23/17 16:18 89 05/23/17 15:59 98.1 17 101/71 100 05/23/17 15:05 30 05/21/17 17:24 Mechanical Ventilator Intake and Output 05/22/17 05/22/17 05/23/17 15:00 23:00 07:00 Intake Total 1200 ml 1300 ml Output Total 1500 ml 1500 ml Balance -300 ml -200 ml Exam HEENT: Pupils equal, round, and reactive to light. Tracheostomy site clean and intact. CARDIAC: S1, S2, 1/6 systolic ejection murmur CHEST: Diminished air entry bilaterally. ABDOMEN: Mildly distended. Bowel sounds present no guarding or rebound EXTREMITIES: No cyanosis, clubbing edema +1 Results/Medications Result Diagram: 05/22/17 0546 05/22/17 0546 Medications Current Medications Acetaminophen (Tylenol Liquid) 650 mg Q4 PRN GTB PAIN AND OR ELEVATED TEMP Last administered on 05/21/17 09:12; Admin Dose 650 MG; Start 04/25/17 at 23: 00 Eye Lubricant (Akwa Oint) 1 applic QID BOTH EYES Last administered on 12:44; Admin Dose 1 APPLIC; Start 04/26/17 at 09:00 Bromocriptine Mesylate (Parlodel) 30 mg DAILY GTB Last administered on 08:25; Admin Dose 30 MG; Start 04/26/17 at 09:00 Chlorhexidine Gluconate (Peridex) 15 ml BID MM Last administered on 05/23/17 08:25; Admin Dose 15 ML; Start 04/26/17 at 09:00 Ferrous Sulfate (Feosol Liquid Cup) 300 mg BID GTB Last administered on 08:25; Admin Dose 300 MG; Start 04/26/17 at 09:00 Hydrocortisone (Cortef) 20 mg DAILY GTB Last administered on 05/23/17 08:25; Admin Dose 20 MG; Start 04/26/17 at 09:00 Ondansetron HCl (Zofran Tab) 4 mg Q8 PRN GTB NAUSEA AND/OR VOMITING; Start at 23:00 Lactobacillus Acidophilus (Florajen3 Capsule) 1 each DAILY PEG Last administered on 05/23/17 08:25; Admin Dose 1 EACH; Start 04/26/17 at 09:00 Ascorbic Acid (Vitamin C) 250 mg BID GTB Last administered on 05/23/17 08:25 ; Admin Dose 250 MG; Start 04/26/17 at 09:00 Famotidine (Pepcid) 20 mg BID GTB Last administered on 05/23/17 08:25; Admin Dose 20 MG; Start 04/26/17 at 09:00 Morphine Sulfate (morphine) 2 mg Q4H PRN IV PAIN Last administered on 04:59; Admin Dose 2 MG; Start 04/26/17 at 16:30 Posaconazole (Noxafil) 400 mg Q8 PO Last administered on 05/23/17 14:57; Admin Dose 400 MG; Start 04/30/17 at 22:00 Ergocalciferol (Drisdol Liquid (Ped)) 50,000 units Q7D GTB Last administered on 05/23/17 11:42; Admin Dose 50,000 UNITS; Start 05/02/17 at 09:30 Enoxaparin Sodium (Lovenox) 50 mg Q12 SC Last administered on 05/23/17 08:41 ; Admin Dose 50 MG; Start 05/03/17 at 09:30 Diphenoxylate HCl/ Atropine (Lomotil Liquid Cup) 5 ml Q6H PRN PO DIARRHEA; Start 05/03/17 at 18:00 Collagenase (Santyl) 1 applic DAILY TOP Last administered on 05/23/17 08:27; Admin Dose 1 APPLIC; Start 05/04/17 at 14:30 Desmopressin Acetate 0.05 mg 0.05 mg DAILY GTB Last administered on 05/23/17 08:24; Admin Dose 0.05 MG; Start 05/07/17 at 09:00 Acyclovir 500 mg/ Sodium Chloride 100 ml @ 100 mls/hr Q8 IVPB Last administered on 05/23/17 14:57; Admin Dose 100 MLS/HR; Start 05/07/17 at 14:00 Meropenem/Sodium Chloride (Merrem 1 Gm/50 ml (Pmx)) 50 ml @ 100 mls/hr Q8H IVPB Last administered on 05/23/17 14:18; Admin Dose 100 MLS/HR; Start 05/12 at 13:00 Vancomycin HCl (Vancomycin Oral Syringe) 250 mg Q6 GTB Last administered on 11:42; Admin Dose 250 MG; Start 05/13/17 at 12:00 Potassium Chloride 20 meq 20 meq BID GTB Last administered on 05/23/17 08:25 ; Admin Dose 20 MEQ; Start 05/18/17 at 09:30 Vancomycin HCl (Vancocin) 250 ml @ 125 mls/hr Q8H IVPB Last administered on 11:42; Admin Dose 125 MLS/HR; Start 05/21/17 at 12:00 Assessment/Plan Additional Assessment/Plan IMP: 1. Disseminated coccidiomycosis with encephalopathy. 2. Vent dependent respiratory failure 3. s/p Septic shock 4. Hypokalemia 5. Anemia of chronic disease RECS: 1. Vent support 2. Abx per ID 3. TF/Free H20 4. DVT GI prophylaxis CASI KNOWLES MD May 23, 2017 16:55
[2017-05-24] VITALS (20 sets, daily range): BP systolic 100–120; BP diastolic 57–80; PULSE 55–80; RESP 16–19
[2017-05-24] MEDS: VANCOMYCIN 1 GM in NS 250 ML IVPB SCH ×2 (03:54→13:04)
[2017-05-24] MEDS: MEROPENEM 1 GM/50ML(PMX) 50 ML IVPB SCH ×2 (05:26→13:05)
[2017-05-24] MEDS: VANCOMYCIN HCL 250 MG/5ML POSYG GTB SCH ×3 (06:24→18:03)
[2017-05-24] MEDS: POSACONAZOLE PO SCH ×2 (06:24→15:05)
[2017-05-24] MEDS: ACYCLOVIR 500 MG in SOD CHLORIDE 0.9% 100 ML IVPB SCH ×2 (07:08→14:00)
[2017-05-24 07:14] LABS: BASOPHIL # 0.1 10^3/ul (0.0-0.1); BASOPHILS % 0.7 % (0.0-2.0); EOSINOPHILS # 0.2 10^3/ul (0.0-0.5); EOSINOPHILS % 2.8 % (0.0-7.0); HEMATOCRIT 24.9 % (42.0-52.0); HEMOGLOBIN 8.1 g/dl (14.0-18.0); LYMPHOCYTES # 0.8 10^3/ul (0.8-2.9); LYMPHOCYTES % 11.9 % (15.0-51.0); MEAN CORPUSCULAR HGB CONC 32.5 g/dl (32.0-37.0); MEAN CORPUSCULAR VOLUME 89.2 fl (82.0-101.0); MEAN PLATELET VOLUME 10.8 fl (7.4-10.4); MONOCYTE # 0.6 10^3/ul (0.3-0.9); NEUTROPHIL # 5.1 10^3/ul (1.6-7.5); NEUTROPHILS % 74.3 % (39.0-77.0); PLATELET COUNT 208 10^3/UL (140-415); RED BLOOD COUNT 2.79 10^6/ul (4.70-6.10); RED CELL DISTRIBUTION WIDTH 14.1 % (11.5-14.5); WHITE BLOOD COUNT 6.8 10^3/ul (4.8-10.8)
[2017-05-24 07:38] LABS: CALCIUM 8.8 mg/dl (8.4-10.2); CREATININE 0.32 mg/dl (0.61-1.24); POTASSIUM 3.3 mmol/L (3.5-5.1)
[2017-05-24] MEDS: FERROUS SULFATE 60 MG/ML 5ML CUP GTB SCH (10:02)
[2017-05-24] MEDS: CHLORHEXIDINE GLUCONATE 15 ML UD CUP MM SCH (10:03)
[2017-05-24] MEDS: L ACIDOPHIL/B LACTIS/B LONGUM CAPSULE PEG SCH (10:03)
[2017-05-24] MEDS: DESMOPRESSIN 0.1 MG TAB GTB SCH (10:03)
[2017-05-24] MEDS: FAMOTIDINE 20 MG TAB GTB SCH (10:03)
[2017-05-24] MEDS: HYDROCORTISONE 20 MG TAB GTB SCH (10:03)
[2017-05-24] MEDS: ASCORBIC ACID 250 MG TAB GTB SCH (10:03)
[2017-05-24] MEDS: POTASSIUM CHLORIDE 20 MEQ POWDER FOR ORAL SOLN GTB SCH (10:04)
[2017-05-24] MEDS: BROMOCRIPTINE 2.5 MG TAB GTB SCH (10:05)
[2017-05-24] MEDS: OCULAR LUBRICANT 3.5 GM OPH OINT BOTH EYES SCH ×3 (10:05→17:00)
[2017-05-24] MEDS: COLLAGENASE 30 GM TUBE TOP SCH (10:06)
[2017-05-24] MEDS: ENOXAPARIN 60 MG/0.6 ML SYG SC SCH (10:08)
--- NOTE | 2017-05-24 15:06 | CONS ---
Date/Time of Note Date/Time of Note DATE: 05/24/17 TIME: 15:05 Consult Date/Type/Reason Admit Date/Time Apr 25, 2017 at 12:31 Initial Consult Date 04/25/17 Type of Consultation: Pulm Ordering Provider: HELEN CASTELLANO MD Subjective Patient comfortable at rest. No new events. Objective Vital Signs Date Time Temp Pulse Resp B/P Pulse Ox O2 Delivery O2 Flow Rate FiO2 05/24/17 13:25 59 05/24/17 11:44 16 100/57 100 05/24/17 11:35 30 05/24/17 04:02 97.7 05/21/17 17:24 Mechanical Ventilator Intake and Output 05/23/17 05/23/17 05/24/17 15:00 23:00 07:00 Intake Total 250 ml 1050 ml 100 ml Output Total 800 ml Balance 250 ml 250 ml 100 ml Exam PHYSICAL EXAMINATION GENERAL: Chronically ill-appearing gentleman VITAL SIGNS: see below. HEENT: Pupils equal, round, and reactive to light. Tracheostomy site clean and intact. CARDIAC: S1, S2, 1/6 systolic ejection murmur CHEST: Diminished air entry bilaterally. ABDOMEN: Mildly distended. Bowel sounds present no guarding or rebound EXTREMITIES: No cyanosis, clubbing edema +1 NEUROLOGIC: Generalized weakness Results/Medications Result Diagram: 05/24/17 0629 05/24/17 0629 Results 24 hrs Laboratory Tests Test 05/24/17 06:29 White Blood Count 6.8 Red Blood Count 2.79 L Hemoglobin 8.1 L Hematocrit 24.9 L Mean Corpuscular Volume 89.2 Mean Corpuscular Hemoglobin 29.0 Mean Corpuscular Hemoglobin Concent 32.5 Red Cell Distribution Width 14.1 Platelet Count 208 # Mean Platelet Volume 10.8 H Neutrophils % 74.3 Lymphocytes % 11.9 L Monocytes % 9.0 Eosinophils % 2.8 Basophils % 0.7 Nucleated Red Blood Cells % 0.0 Neutrophils # 5.1 Lymphocytes # 0.8 Monocytes # 0.6 Eosinophils # 0.2 Basophils # 0.1 Nucleated Red Blood Cells # 0.0 Sodium Level 136 Potassium Level 3.3 L Chloride Level 104 Carbon Dioxide Level 26 Anion Gap 9 Blood Urea Nitrogen 9 Creatinine 0.32 L Glucose Level 75 Calcium Level 8.8 Medications Current Medications Acetaminophen (Tylenol Liquid) 650 mg Q4 PRN GTB PAIN AND OR ELEVATED TEMP Last administered on 05/21/17 09:12; Admin Dose 650 MG; Start 04/25/17 at 23: 00 Eye Lubricant (Akwa Oint) 1 applic QID BOTH EYES Last administered on 13:04; Admin Dose 1 APPLIC; Start 04/26/17 at 09:00 Bromocriptine Mesylate (Parlodel) 30 mg DAILY GTB Last administered on 10:05; Admin Dose 30 MG; Start 04/26/17 at 09:00 Chlorhexidine Gluconate (Peridex) 15 ml BID MM Last administered on 05/24/17 10:03; Admin Dose 15 ML; Start 04/26/17 at 09:00 Ferrous Sulfate (Feosol Liquid Cup) 300 mg BID GTB Last administered on 10:02; Admin Dose 300 MG; Start 04/26/17 at 09:00 Hydrocortisone (Cortef) 20 mg DAILY GTB Last administered on 05/24/17 10:03; Admin Dose 20 MG; Start 04/26/17 at 09:00 Ondansetron HCl (Zofran Tab) 4 mg Q8 PRN GTB NAUSEA AND/OR VOMITING; Start at 23:00 Lactobacillus Acidophilus (Florajen3 Capsule) 1 each DAILY PEG Last administered on 05/24/17 10:03; Admin Dose 1 EACH; Start 04/26/17 at 09:00 Ascorbic Acid (Vitamin C) 250 mg BID GTB Last administered on 05/24/17 10:03 ; Admin Dose 250 MG; Start 04/26/17 at 09:00 Famotidine (Pepcid) 20 mg BID GTB Last administered on 05/24/17 10:03; Admin Dose 20 MG; Start 04/26/17 at 09:00 Morphine Sulfate (morphine) 2 mg Q4H PRN IV PAIN Last administered on 04:59; Admin Dose 2 MG; Start 04/26/17 at 16:30 Posaconazole (Noxafil) 400 mg Q8 PO Last administered on 05/24/17 06:24; Admin Dose 400 MG; Start 04/30/17 at 22:00 Ergocalciferol (Drisdol Liquid (Ped)) 50,000 units Q7D GTB Last administered on 05/23/17 11:42; Admin Dose 50,000 UNITS; Start 05/02/17 at 09:30 Enoxaparin Sodium (Lovenox) 50 mg Q12 SC Last administered on 05/24/17 10:08 ; Admin Dose 50 MG; Start 05/03/17 at 09:30 Diphenoxylate HCl/ Atropine (Lomotil Liquid Cup) 5 ml Q6H PRN PO DIARRHEA; Start 05/03/17 at 18:00 Collagenase (Santyl) 1 applic DAILY TOP Last administered on 05/24/17 10:06; Admin Dose 1 APPLIC; Start 05/04/17 at 14:30 Desmopressin Acetate 0.05 mg 0.05 mg DAILY GTB Last administered on 05/24/17 10:03; Admin Dose 0.05 MG; Start 05/07/17 at 09:00 Acyclovir 500 mg/ Sodium Chloride 100 ml @ 100 mls/hr Q8 IVPB Last administered on 05/24/17 07:08; Admin Dose 100 MLS/HR; Start 05/07/17 at 14:00 Meropenem/Sodium Chloride (Merrem 1 Gm/50 ml (Pmx)) 50 ml @ 100 mls/hr Q8H IVPB Last administered on 05/24/17 13:05; Admin Dose 100 MLS/HR; Start 05/12 at 13:00 Vancomycin HCl (Vancomycin Oral Syringe) 250 mg Q6 GTB Last administered on 13:04; Admin Dose 250 MG; Start 05/13/17 at 12:00 Potassium Chloride 20 meq 20 meq BID GTB Last administered on 05/24/17 10:04 ; Admin Dose 20 MEQ; Start 05/18/17 at 09:30 Vancomycin HCl (Vancocin) 250 ml @ 125 mls/hr Q8H IVPB Last administered on 13:04; Admin Dose 125 MLS/HR; Start 05/21/17 at 12:00 Assessment/Plan Chief Complaint/Hosp Course IMP: 1. Disseminated coccidiomycosis with encephalopathy. 2. Vent dependent respiratory failure 3. s/p Septic shock 4. Hypokalemia 5. Anemia of chronic disease RECS: 1. Vent support 2. Abx per ID 3. TF/Free H20 4. DVT GI prophylaxis DC planning. Problems: FRANCESCA HANSEN [facility] May 24, 2017 15:06
--- NOTE | 2017-05-24 17:30 | CONS ---
Date/Time of Note Date/Time of Note DATE: 05/24/17 TIME: 17:29 Assessment/Plan Assessment/Plan Additional Assessment/Plan 1. Non Oliguric Acute kidney injury due to septic shock -Improved 2. Hypernaremia- resolved 3. Septic shock on levophed - Resolved 4. Acute on chronic resp failure s/p Tracheostomy- on ventilator, pulmonary has been following 5. H/o Fungal meningitis, currently comatose 6. H/O Right sided [employer] shunt 7. 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 Hypokalemia Plan: Na 135 with DDAVP to 0.05 daily , Cr stabel, K low, on K replacement protocol ID, pulmonary has been following , on IV meropenem and IV acyclovir , amphotericin is stopped on 05/16/17. will follow up Consultation Date/Type/Reason Admit Date/Time Apr 25, 2017 at 12:31 Initial Consult Date 04/25/17 Type of Consultation: NEPHROLOGY Referring Provider: HELEN CASTELLANO MD 24 HR Interval Summary Free Text/Dictation K low, Cr stable, no acute events Exam/Review of Systems Vital Signs Vitals Vital Signs Date Time Temp Pulse Resp B/P Pulse Ox O2 Delivery O2 Flow Rate FiO2 05/24/17 16:58 55 05/24/17 16:55 97.6 18 120/75 100 05/24/17 15:26 30 05/21/17 17:24 Mechanical Ventilator Intake and Output 05/23/17 05/23/17 05/24/17 15:00 23:00 07:00 Intake Total 250 ml 1050 ml 100 ml Output Total 800 ml Balance 250 ml 250 ml 100 ml Exam Constitutional: non-verbal Neck: other (Tracheostomy), supple Respiratory: diminished breath sounds Cardiovascular: nl pulses Gastrointestinal: non-tender, other (G-tube), soft Extremities: normal pulses Results Result Diagram: 05/24/17 0629 05/24/17 0629 Results 24 hrs Laboratory Tests Test 05/24/17 06:29 White Blood Count 6.8 Red Blood Count 2.79 L Hemoglobin 8.1 L Hematocrit 24.9 L Mean Corpuscular Volume 89.2 Mean Corpuscular Hemoglobin 29.0 Mean Corpuscular Hemoglobin Concent 32.5 Red Cell Distribution Width 14.1 Platelet Count 208 # Mean Platelet Volume 10.8 H Neutrophils % 74.3 Lymphocytes % 11.9 L Monocytes % 9.0 Eosinophils % 2.8 Basophils % 0.7 Nucleated Red Blood Cells % 0.0 Neutrophils # 5.1 Lymphocytes # 0.8 Monocytes # 0.6 Eosinophils # 0.2 Basophils # 0.1 Nucleated Red Blood Cells # 0.0 Sodium Level 136 Potassium Level 3.3 L Chloride Level 104 Carbon Dioxide Level 26 Anion Gap 9 Blood Urea Nitrogen 9 Creatinine 0.32 L Glucose Level 75 Calcium Level 8.8 Medications Medications Current Medications Acetaminophen (Tylenol Liquid) 650 mg Q4 PRN GTB PAIN AND OR ELEVATED TEMP Last administered on 05/21/17 09:12; Admin Dose 650 MG; Start 04/25/17 at 23: 00 Eye Lubricant (Akwa Oint) 1 applic QID BOTH EYES Last administered on 13:04; Admin Dose 1 APPLIC; Start 04/26/17 at 09:00 Bromocriptine Mesylate (Parlodel) 30 mg DAILY GTB Last administered on 10:05; Admin Dose 30 MG; Start 04/26/17 at 09:00 Chlorhexidine Gluconate (Peridex) 15 ml BID MM Last administered on 05/24/17 10:03; Admin Dose 15 ML; Start 04/26/17 at 09:00 Ferrous Sulfate (Feosol Liquid Cup) 300 mg BID GTB Last administered on 10:02; Admin Dose 300 MG; Start 04/26/17 at 09:00 Hydrocortisone (Cortef) 20 mg DAILY GTB Last administered on 05/24/17 10:03; Admin Dose 20 MG; Start 04/26/17 at 09:00 Ondansetron HCl (Zofran Tab) 4 mg Q8 PRN GTB NAUSEA AND/OR VOMITING; Start at 23:00 Lactobacillus Acidophilus (Florajen3 Capsule) 1 each DAILY PEG Last administered on 05/24/17 10:03; Admin Dose 1 EACH; Start 04/26/17 at 09:00 Ascorbic Acid (Vitamin C) 250 mg BID GTB Last administered on 05/24/17 10:03 ; Admin Dose 250 MG; Start 04/26/17 at 09:00 Famotidine (Pepcid) 20 mg BID GTB Last administered on 05/24/17 10:03; Admin Dose 20 MG; Start 04/26/17 at 09:00 Morphine Sulfate (morphine) 2 mg Q4H PRN IV PAIN Last administered on 04:59; Admin Dose 2 MG; Start 04/26/17 at 16:30 Posaconazole (Noxafil) 400 mg Q8 PO Last administered on 05/24/17 15:05; Admin Dose 400 MG; Start 04/30/17 at 22:00 Ergocalciferol (Drisdol Liquid (Ped)) 50,000 units Q7D GTB Last administered on 05/23/17 11:42; Admin Dose 50,000 UNITS; Start 05/02/17 at 09:30 Enoxaparin Sodium (Lovenox) 50 mg Q12 SC Last administered on 05/24/17 10:08 ; Admin Dose 50 MG; Start 05/03/17 at 09:30 Diphenoxylate HCl/ Atropine (Lomotil Liquid Cup) 5 ml Q6H PRN PO DIARRHEA; Start 05/03/17 at 18:00 Collagenase (Santyl) 1 applic DAILY TOP Last administered on 05/24/17 10:06; Admin Dose 1 APPLIC; Start 05/04/17 at 14:30 Desmopressin Acetate 0.05 mg 0.05 mg DAILY GTB Last administered on 05/24/17 10:03; Admin Dose 0.05 MG; Start 05/07/17 at 09:00 Acyclovir 500 mg/ Sodium Chloride 100 ml @ 100 mls/hr Q8 IVPB Last administered on 05/24/17 14:00; Admin Dose 100 MLS/HR; Start 05/07/17 at 14:00 Meropenem/Sodium Chloride (Merrem 1 Gm/50 ml (Pmx)) 50 ml @ 100 mls/hr Q8H IVPB Last administered on 05/24/17 13:05; Admin Dose 100 MLS/HR; Start 05/12 at 13:00 Vancomycin HCl (Vancomycin Oral Syringe) 250 mg Q6 GTB Last administered on 13:04; Admin Dose 250 MG; Start 05/13/17 at 12:00 Potassium Chloride 20 meq 20 meq BID GTB Last administered on 05/24/17 10:04 ; Admin Dose 20 MEQ; Start 05/18/17 at 09:30 Vancomycin HCl (Vancocin) 250 ml @ 125 mls/hr Q8H IVPB Last administered on 13:04; Admin Dose 125 MLS/HR; Start 05/21/17 at 12:00 FARHAT RUBIO MD May 24, 2017 17:30
[2017-05-24] MEDS: POTASSIUM CHLORIDE 50 ML IVPB PRN ×3 (18:03→20:00)
--- NOTE | 2017-05-25 07:08 | CONS ---
Date/Time of Note Date/Time of Note DATE: 05/24/17 TIME:1500 Assessment/Plan Assessment/Plan Chief Complaint/Hosp Course - disseminated coccidioides mycosis infection, meningitis. CSF from the shunt on 05/15/2017 had WBC 11 (91% mono, 9 % lymph), glu=76, kjrpsen=954, 05/16/2017 had WBC 4 (75% mono, 25 % lymph), glu=80, dfilydn=575 (last LP on record at [facility] on 03/31/2017: WBC 4 33% PMNs, RBC 16, glu <10, protein >2,000) - coccidioides CF 1:16 on 04/26/2017, 1:8 on 05/16/2017 - posaconazole trough level 0.32 on 04/27/2017, the dose was increased on 2016. The repeat level 0.37 on 05/07/2017 - skin and soft tissue infection of the lower lip and mandible due to ESBL+E. 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 CT on 05/17/2017 showed no abscess - C diff colitis, recurrent - septic shock due to pneumonia and UTI - UTI due to ESBL+E. coli. Took pip/tazo and then meropenem - b/l pneumonia due to klebsiella, EBL+E. coli. - s/p VPS placement - VDRF s/p tracheostomy - PEG dependet status - pancytopenia, due to septic shock on admission, improved - thrombocytopenia, improved recommendations - pending results: urine culture, blood cultures, resp culture, CSF (VDRL, fungus culture, herpes simplex virus PCR, cryptococcus antigen) - continue meropenem (restart 05/09/2017-) to cover pneumonia and infection of the lower lip and mandible due to ESBL+E. coli - continue IV acyclovir (05/07/2017-) for herpes labialis but also for possible herpes encephalitis while waiting for HSV PCR in CSF - continue IV vancomycin due to recurrent fever (restart 05/22/2017-) - continue posaconazole to 400 mg q8hrs (posaconazole trough level 0.32 on 2016, the dose was increased on 04/29/2017, the level was 0.37 on 05/07/2017) - continue pGT vancomycin (05/07/2017-) for C diff colitis while Pt's on broad spectrum antibiotics - enteric and droplet contact precautions for C diff colitis and ESBL+E. coli in sputum culture respectively Problems: Consultation Date/Type/Reason Admit Date/Time Apr 25, 2017 at 12:31 Initial Consult Date 05/13/17 Type of Consultation: id Referring Provider: HELEN CASTELLANO MD 24 HR Interval Summary Free Text/Dictation this is a late entry for 05.24.17 Exam/Review of Systems Vital Signs Vitals Vital Signs Date Time Temp Pulse Resp B/P Pulse Ox O2 Delivery O2 Flow Rate FiO2 05/24/17 20:05 70 05/24/17 19:55 97.6 17 110/73 100 05/24/17 19:45 30 05/21/17 17:24 Mechanical Ventilator Intake and Output 05/24/17 05/24/17 05/25/17 15:00 23:00 07:00 Intake Total 900 ml 900 ml Output Total 1100 ml 2000 ml Balance -200 ml -1100 ml Exam Constitutional: non-verbal Psych: no complaints Gastrointestinal: soft Musculoskeletal: nl extremities to inspection Results Result Diagram: 05/24/17 0629 05/24/17 0629 SABRINA LOPEZ MD May 25, 2017 07:08
== END 2017-05-24 21:05 | DRG 870 ==
LOC: E/R 10:55 → ICU 12:31 → TEL 05-02 13:07
PROVIDERS: ADMIT Internal Medicine; ATTEND Internal Medicine
PROC: 02HV33Z Insertion of Infusion Device into Superior Vena Cava, Percutaneous Approach (ICD-10-PCS; 2017-04-25)
PROC: 30233N1 Transfusion of Nonautologous Red Blood Cells into Peripheral Vein, Percutaneous Approach (ICD-10-PCS; 2017-04-25)
PROC: 5A1955Z Respiratory Ventilation, Greater than 96 Consecutive Hours (ICD-10-PCS; principal; 2017-04-26)
PROC: 8C01X6J Collection of Cerebrospinal Fluid from Indwelling Device in Nervous System (ICD-10-PCS; 2017-05-15)
DX: A41.9 Sepsis, unspecified organism (principal); R65.21 Severe sepsis with septic shock; G93.40 Encephalopathy, unspecified; E43 Unspecified severe protein-calorie malnutrition; J15.0 Pneumonia due to Klebsiella pneumoniae; G93.1 Anoxic brain damage, not elsewhere classified; R40.3 Persistent vegetative state; E23.2 Diabetes insipidus; N17.9 Acute kidney failure, unspecified; L89.893 Pressure ulcer of other site, stage 3; J96.10 Chronic respiratory failure, unspecified whether with hypoxia or hypercapnia; E87.0 Hyperosmolality and hypernatremia; D61.818 Other pancytopenia; A04.71 Enterocolitis due to Clostridium difficile, recurrent; N39.0 Urinary tract infection, site not specified; Z68.1 Body mass index [BMI] 19.9 or less, adult; B38.7 Disseminated coccidioidomycosis; I82.C12 Acute embolism and thrombosis of left internal jugular vein; I82.B12 Acute embolism and thrombosis of left subclavian vein; Z66 Do not resuscitate; Z98.2 Presence of cerebrospinal fluid drainage device; Z93.1 Gastrostomy status; B00.1 Herpesviral vesicular dermatitis; B96.20 Unspecified Escherichia coli [E. coli] as the cause of diseases classified elsewhere; Z16.12 Extended spectrum beta lactamase (ESBL) resistance; E87.6 Hypokalemia; Z93.0 Tracheostomy status
CPT/HCPCS: 36415; 36430; 36569; 36600; 70450; 70486; 71010; 74176; 76937; 80048; 80053; 80202; 81001; 81003; 82533; 82550; 82553; 82570; 82803; 82945; 83605; 83735; 84100; 84132; 84145; 84157; 84300; 84484; 84560; 85025; 85610; 85730; 86592; 86635; 86641; 86698; 86703; 86850; 86900; 86901; 86920; 87040; 87070; 87075; 87081; 87086; 87102; 87400; 87449; 87529; 87798; 89051; 89190; 89220; 93005; 93306; 93970; 94002; 94003; 96365; 96366; 96367; 96368; 96375; J0133; J0289; J0456; J0692; J1200; J1650; J1720; J2185; J2270; J2370; J2543; J3370; J3475; J3480; J7030; J7040; J7060; J7070; P9016; Q9967

== ENCOUNTER 2017-09-06 19:19 | Inpatient (IN) | END 2018-04-29 15:45 | DRG 853 ==